=== PATIENT | male | born 1960 | race Hispanic/Latino ===

== ENCOUNTER 2019-05-11 20:35 | Inpatient (IN) | payer BC, OTHER ==
[~2019-05-11] VITALS: Ht 165.1 cm; Wt 80.7 kg
--- OUTSIDE RECORDS SUMMARY | 2019-05-11 20:41 | XMS REPORT ---
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 Allergies, Adverse Reactions, Alerts Allergy Name Allergy Type Status Severity Reaction(s) Onset Date Inactive Date Treating Clinician Comments No Known Allergies DA Active U 2019-03-13 00:00:00 No Known Allergies DA Active U 2014-10-09 00:00:00 Medications This patient has no known medications. Encounters Start Date/Time End Date/Time Encounter Type Admission Type Attending [facility] Care Facility Care Department Encounter ID 2019-05-20 00:00:00 2019-05-20 00:00:00 Outpatient [facility] [id number] 2019-04-19 10:21:16 2019-04-19 10:21:16 Outpatient [facility] [id number] 2019-04-18 00:00:00 2019-04-18 00:00:00 Outpatient [facility] [id number] 2019-04-02 00:00:00 2019-04-02 00:00:00 Outpatient [facility] [id number] 2019-03-28 00:00:00 2019-03-28 00:00:00 Outpatient [facility] [id number] 2018-11-21 00:00:00 2018-11-21 00:00:00 Outpatient [facility] [id number] 2018-11-08 00:00:00 2018-11-08 00:00:00 Outpatient [facility] [id number] 2018-10-22 00:00:00 2018-10-22 00:00:00 Outpatient [facility] [id number] 2018-10-10 10:11:42 2018-10-10 10:11:42 Outpatient [facility] [id number] 2018-10-04 14:02:06 2018-10-04 14:02:06 Outpatient [facility] [id number] 2018-04-13 00:00:00 2018-04-13 00:00:00 Outpatient [facility] [id number] 2018-03-23 00:00:00 2018-03-23 00:00:00 Outpatient [facility] [id number] 2018-03-23 00:00:00 2018-03-23 00:00:00 Outpatient [facility] [id number] 2017-12-18 00:00:00 2017-12-18 00:00:00 Outpatient [facility] [id number] 2017-12-14 00:00:00 2017-12-14 00:00:00 Outpatient [facility] [id number] 2017-11-30 15:05:47 2017-11-30 15:05:47 Outpatient [facility] [id number] 2017-11-30 13:32:46 2017-11-30 13:32:46 Outpatient [facility] [id number] 2017-11-30 00:00:00 2017-11-30 00:00:00 Outpatient [facility] [id number] 2017-03-20 00:00:00 2017-03-20 00:00:00 Outpatient [facility] [id number] 2017-03-03 00:00:00 2017-03-03 00:00:00 Outpatient [facility] [id number] 2017-01-30 00:00:00 2017-01-30 00:00:00 Outpatient [facility] [id number] 2017-01-19 00:00:00 2017-01-19 00:00:00 Outpatient [facility] [id number] 2017-01-10 11:03:29 2017-01-10 11:03:29 Outpatient [facility] [id number] 2017-01-06 15:34:13 2017-01-06 15:34:13 Outpatient [facility] [id number] 2017-01-06 13:41:52 2017-01-06 13:41:52 Outpatient [facility] [id number] Results Test Description Test Time Test Comments Text Results Atomic Results Result Comments GLUBED 2019-04-22 08:40:00 GLUBED (test code=GLUBED) 190 mg/dL 74-106 Performed by certified control center operator at [facility] [id number] 08:04:00* Test Item Value Reference Range Comments POTASSIUM (test code=K) 3.8 mmol/L 3.5-5.1 COMPREHENSIVE METABOLIC [id number] 12:37:00* Test Item Value Reference Range Comments SODIUM (test code=NA) 140 mmol/L 136-145 POTASSIUM (test code=K) 4.1 mmol/L 3.5-5.1 CHLORIDE (test code=CL) 102.0 mmol/L 98-107 CARBON DIOXIDE (test code=CO2) 30.0 mmol/L 21-32 ANION GAP (test code=GAP) 12.1 10-20 GLUCOSE (test code=GLU) 166 mg/dL 74-106 BLOOD UREA NITROGEN (test code=BUN) 22 mg/dL 7-18 GLOMERULAR FILTRATION RATE (test code=GFR) 26 mL/min >=60 Estimated GFR by using Modified MDRD formula.Chronic kidney disease is defined as either kidney damageor GFR <60 mL/min/1.73 m2 for >3 months. CREATININE (test code=CREAT) 2.50 mg/dL 0.7-1.3 BUN/CREATININE RATIO (test code=BUN/CREA) 8.9 10-20 TOTAL PROTEIN (test code=PROT) 7.9 gram/dL 6.4-8.2 ALBUMIN (test code=ALB) 3.6 g/dL 3.4-5.0 GLOBULIN (test code=GLOB) 4.3 gram/dL 2.7-4.2 ALBUMIN/GLOBULIN RATIO (test code=A/G) 0.8 0.75-1.50 CALCIUM (test code=CA) 8.9 mg/dL 8.5-10.1 BILIRUBIN TOTAL (test code=BILT) 0.60 mg/dL 0.0-1.0 SGOT/AST (test code=AST) 19 IUnit/L 15-37 SGPT/ALT (test code=ALT) 40 IUnit/L 12-78 ALKALINE PHOSPHATASE TOTAL (test code=ALKP) 81 IUnit/L 45-117 Note change in reference range due to change in reagent. PROTHROMBIN [id number] 12:24:00* Test Item Value Reference Range Comments PROTHROMBIN TIME PATIENT (test code=PTP) 11.8 seconds 9.0-14.0 INTERNATIONAL NORMAL RATIO (test code=INR) 1.0 0.8-1.2 The therapeutic range for oral anticoagulant therapy formost indications is an international normalized ratio (INR)of between 2.0 and 3.0. The recommended therapeutic INRrange for various clinical situations is listed below: Clinical Situation INR range Pulmonary e mbolism treatment (2.0-3.0)Venous thrombosis treatmentVenous thrombosis prophylaxis (high risk surgery)Prevention of systemic embolism from: Acute myocardial infarction Valvular heart disease Atrial fibrillation Mechanical prosthetic heart valves (2.5-3.5) THROMBOPLASTIN TIME [id number] 12:24:00* Test Item Value Reference Range Comments THROMBOPLASTIN TIME PARTIAL (test code=PTT) 35.6 seconds 25.0-36.5 CBC W/AUTO [id number] 12:15:00* Test Item Value Reference Range Comments WHITE BLOOD CELL (test code=WBC) 6.5 K/mm3 4.5-12.5 RED BLOOD CELL (test code=RBC) 3.66 mill/mm3 4.0-5.8 HEMOGLOBIN (test code=HGB) 11.1 gram/dL 13.0-17.5 HEMATOCRIT (test code=HCT) 33.2 % 42.0-52.0 MEAN CELL VOLUME (test code=MCV) 90.7 fL 80-98 MEAN CELL HGB (test code=MCH) 30.3 picogram 27.0-33.0 MEAN CELL HGB CONCETRATION (test code=MCHC) 33.4 gram/dL 33.0-36.0 RED CELL DISTRIBUTION WIDTH (test code=RDW) 15.2 % 11.6-16.2 RED CELL DISTRIBUTION WIDTH SD (test code=RDW-SD) 49.3 fL 37.0-51.0 PLATELET COUNT (test code=PLT) 192 K/mm3 150-450 MEAN PLATELET VOLUME (test code=MPV) 10.0 fL 6.7-11.0 NEUTROPHIL % (test code=NT%) 67.4 % 39.0-69.0 IMMATURE GRANULOCYTE % (test code=IG%) 0.6 % 0.0-5.0 LYMPHOCYTE % (test code=LY%) 22.0 % 25.0-55.0 MONOCYTE % (test code=MO%) 8.9 % 0.0-10.0 EOSINOPHIL % (test code=EO%) 0.3 % 0.0-5.0 BASOPHIL % (test code=BA%) 0.8 % 0.0-1.0 NUCLEATED RBC % (test code=NRBC%) 0.0 % 0-0 NEUTROPHIL # (test code=NT#) 4.41 K/mm3 1.8-7.7 IMMATURE GRANULOCYTE # (test code=IG#) 0.04 x10 3/uL 0-0.03 LYMPHOCYTE # (test code=LY#) 1.44 K/mm3 1.0-5.0 MONOCYTE # (test code=MO#) 0.58 K/mm3 0-0.8 EOSINOPHIL # (test code=EO#) 0.02 K/mm3 0.0-0.5 BASOPHIL # (test code=BA#) 0.05 K/mm3 0.0-0.2 NUCLEATED RBC # (test code=NRBC#) 0.00 K/mm3 0.0-0.1 MANUAL DIFF REQUIRED (test code=MDIFF) NO [id number] 11:32:00* Test Item Value Reference Range Comments GLUBED (test code=GLUBED) 243 mg/dL 74-106 Performed by certified control center operator at [facility] [id number] 07:20:00* Test Item Value Reference Range Comments GLUBED (test code=GLUBED) 156 mg/dL 74-106 Performed by certified control center operator at [facility] [id number] 20:11:00* Test Item Value Reference Range Comments GLUBED (test code=GLUBED) 277 mg/dL 74-106 Performed by certified control center operator at [facility] [id number] 16:38:00* Test Item Value Reference Range Comments GLUBED (test code=GLUBED) 200 mg/dL 74-106 Performed by certified control center operator at [facility] CBC W/AUTO [id number] 13:41:00* Test Item Value Reference Range Comments WHITE BLOOD CELL (test code=WBC) 9.0 K/mm3 4.5-12.5 RED BLOOD CELL (test code=RBC) 2.90 mill/mm3 4.0-5.8 HEMOGLOBIN (test code=HGB) 8.6 gram/dL 13.0-17.5 HEMATOCRIT (test code=HCT) 27.9 % 42.0-52.0 MEAN CELL VOLUME (test code=MCV) 96.2 fL 80-98 MEAN CELL HGB (test code=MCH) 29.7 picogram 27.0-33.0 MEAN CELL HGB CONCETRATION (test code=MCHC) 30.8 gram/dL 33.0-36.0 RED CELL DISTRIBUTION WIDTH (test code=RDW) 17.5 % 11.6-16.2 RED CELL DISTRIBUTION WIDTH SD (test code=RDW-SD) 60.9 fL 37.0-51.0 PLATELET COUNT (test code=PLT) 165 K/mm3 150-450 MEAN PLATELET VOLUME (test code=MPV) 10.9 fL 6.7-11.0 NEUTROPHIL % (test code=NT%) 65.0 % 39.0-69.0 IMMATURE GRANULOCYTE % (test code=IG%) 1.2 % 0.0-5.0 LYMPHOCYTE % (test code=LY%) 18.3 % 25.0-55.0 MONOCYTE % (test code=MO%) 6.1 % 0.0-10.0 EOSINOPHIL % (test code=EO%) 9.0 % 0.0-5.0 BASOPHIL % (test code=BA%) 0.4 % 0.0-1.0 NUCLEATED RBC % (test code=NRBC%) 0.0 % 0-0 NEUTROPHIL # (test code=NT#) 5.87 K/mm3 1.8-7.7 IMMATURE GRANULOCYTE # (test code=IG#) 0.11 x10 3/uL 0-0.03 LYMPHOCYTE # (test code=LY#) 1.65 K/mm3 1.0-5.0 MONOCYTE # (test code=MO#) 0.55 K/mm3 0-0.8 EOSINOPHIL # (test code=EO#) 0.81 K/mm3 0.0-0.5 BASOPHIL # (test code=BA#) 0.04 K/mm3 0.0-0.2 NUCLEATED RBC # (test code=NRBC#) 0.00 K/mm3 0.0-0.1 MANUAL DIFF REQUIRED (test code=MDIFF) NO BASIC METABOLIC [id number] 13:23:00* Test Item Value Reference Range Comments SODIUM (test code=NA) 142 mmol/L 136-145 POTASSIUM (test code=K) 4.1 mmol/L 3.5-5.1 CHLORIDE (test code=CL) 102.0 mmol/L 98-107 CARBON DIOXIDE (test code=CO2) 27.0 mmol/L 21-32 ANION GAP (test code=GAP) 17.1 10-20 GLUCOSE (test code=GLU) 294 mg/dL 74-106 BLOOD UREA NITROGEN (test code=BUN) 39 mg/dL 7-18 GLOMERULAR FILTRATION RATE (test code=GFR) 15 mL/min >=60 Estimated GFR by using Modified MDRD formula.Chronic kidney disease is defined as either kidney damageor GFR <60 mL/min/1.73 m2 for >3 months. CREATININE (test code=CREAT) 4.20 mg/dL 0.7-1.3 BUN/CREATININE RATIO (test code=BUN/CREA) 9.3 10-20 CALCIUM (test code=CA) 7.9 mg/dL 8.5-10.1 - XR SWLW [facility] W/C [id number] 11:32:00 FAX: Rojelio Padron [place]: B St: ADM Name: TORRES CAN [facility] : [birth year] 57 Age/S: 58/M [address] [facility] Unit #: [id number] Loc: V.[address] [place] [id number] Phys: Rojelio Saldana [facility] DO Acct: [id number] Dis Date: Status: ADM IN PHONE #: [phone] Exam Date: 03/29/2019 1009 FAX #: [phone] Reason: ASSES SWALLOW EXAMS: CPT CODE: [id number] XR SWLW FUNC W/C V 55114 HISTORY: Aspiration. COMPARISON: March 21, 2019. This study was performed in concert with the speech pathologist. Varying grades of barium were admini stered. No aspiration or laryngeal penetration. IM PRESSION: No aspiration or laryngeal penetration. For detailed evaluation please see the accompanying sheet provided by the speech therapist. Fluoroscopy time utilized was 75.7 seconds and 8 images were obtained. at 1132 Reported and signed by: Tima Rios M.D. CC: Rojelio Saldana Contreras DO Technologist: RT BRIA(Vick) Trnscrd Date/Time/By: 03/29/2019 (1132) : By: [email or web address] Orig Print D/T : S: 03/29/2019 (1130) PAGE 1 Sig moy Report [id number] 11:15:00* Test Item Value Reference Range Comments GLUBED (test code=GLUBED) 295 mg/dL 74-106 Performed by certified control center operator at [facility] [id number] 07:08:00* Test Item Value Reference Range Comments GLUBED (test code=GLUBED) 155 mg/dL 74-106 Performed by certified control center operator at [facility] [id number] 20:19:00* Test Item Value Reference Range Comments GLUBED (test code=GLUBED) 276 mg/dL 74-106 Performed by certified control center operator at [facility] [id number] 16:06:00* Test Item Value Reference Range Comments GLUBED (test code=GLUBED) 186 mg/dL 74-106 Performed by certified control center operator at [facility] [id number] 11:27:00* Test Item Value Reference Range Comments GLUBED (test code=GLUBED) 206 mg/dL 74-106 Performed by certified control center operator at [facility] [id number] 08:26:00* Test Item Value Reference Range Comments GLUBED (test code=GLUBED) 138 mg/dL 74-106 Performed by certified control center operator at [facility] [id number] 07:19:00* Test Item Value Reference Range Comments GLUBED (test code=GLUBED) 71 mg/dL 74-106 Performed by certified control center operator at [facility] [id number] 20:27:00* Test Item Value Reference Range Comments GLUBED (test code=GLUBED) 170 mg/dL 74-106 Performed by certified control center operator at [facility] [id number] 16:41:00* Test Item Value Reference Range Comments GLUBED (test code=GLUBED) 230 mg/dL 74-106 Performed by certified control center operator at [facility] BASIC METABOLIC [id number] 13:13:00* Test Item Value Reference Range Comments SODIUM (test code=NA) 141 mmol/L 136-145 POTASSIUM (test code=K) 4.5 mmol/L 3.5-5.1 CHLORIDE (test code=CL) 104.0 mmol/L 98-107 CARBON DIOXIDE (test code=CO2) 27.0 mmol/L 21-32 ANION GAP (test code=GAP) 14.5 10-20 GLUCOSE (test code=GLU) 301 mg/dL 74-106 BLOOD UREA NITROGEN (test code=BUN) 44 mg/dL 7-18 GLOMERULAR FILTRATION RATE (test code=GFR) 15 mL/min >=60 Estimated GFR by using Modified MDRD formula.Chronic kidney disease is defined as either kidney damageor GFR <60 mL/min/1.73 m2 for >3 months. CREATININE (test code=CREAT) 4.00 mg/dL 0.7-1.3 BUN/CREATININE RATIO (test code=BUN/CREA) 11.0 10-20 CALCIUM (test code=CA) 8.5 mg/dL 8.5-10.1 PATIENT NOT IN ROOMBASIC METABOLIC [id number] 13:05:00* Test Item Value Reference Range Comments SODIUM (test code=NA) 141 mmol/L 136-145 POTASSIUM (test code=K) 4.5 mmol/L 3.5-5.1 CHLORIDE (test code=CL) 104.0 mmol/L 98-107 CARBON DIOXIDE (test code=CO2) mmol/L 21-32 ANION GAP (test code=GAP) 10-20 GLUCOSE (test code=GLU) mg/dL 74-106 BLOOD UREA NITROGEN (test code=BUN) mg/dL 7-18 GLOMERULAR FILTRATION RATE (test code=GFR) mL/min >=60 CREATININE (test code=CREAT) mg/dL 0.7-1.3 BUN/CREATININE RATIO (test code=BUN/CREA) 10-20 CALCIUM (test code=CA) mg/dL 8.5-10.1 [facility] [id number] 12:44:00* Test Item Value Reference Range Comments WHITE BLOOD CELL (test code=WBC) 8.1 K/mm3 4.5-12.5 RED BLOOD CELL (test code=RBC) 2.98 mill/mm3 4.0-5.8 HEMOGLOBIN (test code=HGB) 8.9 gram/dL 13.0-17.5 HEMATOCRIT (test code=HCT) 28.5 % 42.0-52.0 MEAN CELL VOLUME (test code=MCV) 95.6 fL 80-98 MEAN CELL HGB (test code=MCH) 29.9 picogram 27.0-33.0 MEAN CELL HGB CONCETRATION (test code=MCHC) 31.2 gram/dL 33.0-36.0 RED CELL DISTRIBUTION WIDTH (test code=RDW) 17.2 % 11.6-16.2 RED CELL DISTRIBUTION WIDTH SD (test code=RDW-SD) 58.8 fL 37.0-51.0 PLATELET COUNT (test code=PLT) 186 K/mm3 150-450 MEAN PLATELET VOLUME (test code=MPV) 10.1 fL 6.7-11.0 NEUTROPHIL % (test code=NT%) 63.4 % 39.0-69.0 IMMATURE GRANULOCYTE % (test code=IG%) 1.6 % 0.0-5.0 LYMPHOCYTE % (test code=LY%) 18.9 % 25.0-55.0 MONOCYTE % (test code=MO%) 5.5 % 0.0-10.0 EOSINOPHIL % (test code=EO%) 10.1 % 0.0-5.0 BASOPHIL % (test code=BA%) 0.5 % 0.0-1.0 NUCLEATED RBC % (test code=NRBC%) 0.0 % 0-0 NEUTROPHIL # (test code=NT#) 5.15 K/mm3 1.8-7.7 IMMATURE GRANULOCYTE # (test code=IG#) 0.13 x10 3/uL 0-0.03 LYMPHOCYTE # (test code=LY#) 1.54 K/mm3 1.0-5.0 MONOCYTE # (test code=MO#) 0.45 K/mm3 0-0.8 EOSINOPHIL # (test code=EO#) 0.82 K/mm3 0.0-0.5 BASOPHIL # (test code=BA#) 0.04 K/mm3 0.0-0.2 NUCLEATED RBC # (test code=NRBC#) 0.00 K/mm3 0.0-0.1 PATIENT NOT IN [id number] 11:15:00* Test Item Value Reference Range Comments GLUBED (test code=GLUBED) 266 mg/dL 74-106 Performed by certified control center operator at [facility]2019-10-23 06:59:00* Test Item Value Reference Range Comments GLUBED (test code=GLUBED) 149 mg/dL 74-106 Performed by certified control center operator at [facility] [id number] 20:03:00* Test Item Value Reference Range Comments GLUBED (test code=GLUBED) 116 mg/dL 74-106 Performed by certified control center operator at [facility] [id number] 16:40:00* Test Item Value Reference Range Comments GLUBED (test code=GLUBED) 120 mg/dL 74-106 Performed by certified control center operator at [facility] [id number] 16:10:00* Test Item Value Reference Range Comments GLUBED (test code=GLUBED) 59 mg/dL 74-106 Performed by certified control center operator at [facility] [id number] 11:16:00* Test Item Value Reference Range Comments GLUBED (test code=GLUBED) 208 mg/dL 74-106 Performed by certified control center operator at [facility] [id number] 07:48:00* Test Item Value Reference Range Comments GLUBED (test code=GLUBED) 208 mg/dL 74-106 Performed by certified control center operator at [facility] [id number] 11:12:00* Test Item Value Reference Range Comments GLUBED (test code=GLUBED) 287 mg/dL 74-106 Performed by certified control center operator at [facility] BASIC METABOLIC [id number] 07:47:00* Test Item Value Reference Range Comments SODIUM (test code=NA) 143 mmol/L 136-145 POTASSIUM (test code=K) 4.1 mmol/L 3.5-5.1 CHLORIDE (test code=CL) 105.0 mmol/L 98-107 CARBON DIOXIDE (test code=CO2) 25.0 mmol/L 21-32 ANION GAP (test code=GAP) 17.1 10-20 GLUCOSE (test code=GLU) 76 mg/dL 74-106 BLOOD UREA NITROGEN (test code=BUN) 53 mg/dL 7-18 GLOMERULAR FILTRATION RATE (test code=GFR) 15 mL/min >=60 Estimated GFR by using Modified MDRD formula.Chronic kidney disease is defined as either kidney damageor GFR <60 mL/min/1.73 m2 for >3 months. CREATININE (test code=CREAT) 4.10 mg/dL 0.7-1.3 BUN/CREATININE RATIO (test code=BUN/CREA) 12.8 10-20 CALCIUM (test code=CA) 9.1 mg/dL 8.5-10.1 [id number] METABOLIC [id number] 07:35:00* Test Item Value Reference Range Comments SODIUM (test code=NA) 143 mmol/L 136-145 POTASSIUM (test code=K) 4.1 mmol/L 3.5-5.1 CHLORIDE (test code=CL) 105.0 mmol/L 98-107 CARBON DIOXIDE (test code=CO2) mmol/L 21-32 ANION GAP (test code=GAP) 10-20 GLUCOSE (test code=GLU) mg/dL 74-106 BLOOD UREA NITROGEN (test code=BUN) mg/dL 7-18 GLOMERULAR FILTRATION RATE (test code=GFR) mL/min >=60 CREATININE (test code=CREAT) mg/dL 0.7-1.3 BUN/CREATININE RATIO (test code=BUN/CREA) 10-20 CALCIUM (test code=CA) mg/dL 8.5-10.1 [id number] W/AUTO [id number] 07:24:00* Test Item Value Reference Range Comments WHITE BLOOD CELL (test code=WBC) 10.0 K/mm3 4.5-12.5 RED BLOOD CELL (test code=RBC) 3.20 mill/mm3 4.0-5.8 HEMOGLOBIN (test code=HGB) 9.4 gram/dL 13.0-17.5 HEMATOCRIT (test code=HCT) 30.4 % 42.0-52.0 MEAN CELL VOLUME (test code=MCV) 95.0 fL 80-98 MEAN CELL HGB (test code=MCH) 29.4 picogram 27.0-33.0 MEAN CELL HGB CONCETRATION (test code=MCHC) 30.9 gram/dL 33.0-36.0 RED CELL DISTRIBUTION WIDTH (test code=RDW) 17.0 % 11.6-16.2 RED CELL DISTRIBUTION WIDTH SD (test code=RDW-SD) 57.8 fL 37.0-51.0 PLATELET COUNT (test code=PLT) 247 K/mm3 150-450 MEAN PLATELET VOLUME (test code=MPV) 10.0 fL 6.7-11.0 NEUTROPHIL % (test code=NT%) 76.6 % 39.0-69.0 IMMATURE GRANULOCYTE % (test code=IG%) 1.5 % 0.0-5.0 LYMPHOCYTE % (test code=LY%) 15.6 % 25.0-55.0 MONOCYTE % (test code=MO%) 5.9 % 0.0-10.0 EOSINOPHIL % (test code=EO%) 0.0 % 0.0-5.0 BASOPHIL % (test code=BA%) 0.4 % 0.0-1.0 NUCLEATED RBC % (test code=NRBC%) 0.0 % 0-0 NEUTROPHIL # (test code=NT#) 7.65 K/mm3 1.8-7.7 IMMATURE GRANULOCYTE # (test code=IG#) 0.15 x10 3/uL 0-0.03 LYMPHOCYTE # (test code=LY#) 1.56 K/mm3 1.0-5.0 MONOCYTE # (test code=MO#) 0.59 K/mm3 0-0.8 EOSINOPHIL # (test code=EO#) 0.00 K/mm3 0.0-0.5 BASOPHIL # (test code=BA#) 0.04 K/mm3 0.0-0.2 NUCLEATED RBC # (test code=NRBC#) 0.00 K/mm3 0.0-0.1 MANUAL DIFF REQUIRED (test code=MDIFF) NO [id number] 07:03:00* Test Item Value Reference Range Comments GLUBED (test code=GLUBED) 86 mg/dL 74-106 Performed by certified control center operator at [facility] [id number] 20:25:00* Test Item Value Reference Range Comments GLUBED (test code=GLUBED) 207 mg/dL 74-106 Performed by certified control center operator at [facility] [id number] 18:54:00* Test Item Value Reference Range Comments GLUBED (test code=GLUBED) 191 mg/dL 74-106 Performed by certified control center operator at [facility] [id number] 11:45:00* Test Item Value Reference Range Comments GLUBED (test code=GLUBED) 218 mg/dL 74-106 Performed by certified control center operator at [facility] [id number] 11:45:00* Test Item Value Reference Range Comments GLUBED (test code=GLUBED) 152 mg/dL 74-106 Performed by certified control center operator at [facility] [id number] 20:09:00* Test Item Value Reference Range Comments GLUBED (test code=GLUBED) 191 mg/dL 74-106 Performed by certified control center operator at [facility] [id number] 16:13:00* Test Item Value Reference Range Comments GLUBED (test code=GLUBED) 138 mg/dL 74-106 Performed by certified control center operator at [facility] [id number] 11:09:00* Test Item Value Reference Range Comments GLUBED (test code=GLUBED) 230 mg/dL 74-106 Performed by certified control center operator at [facility] [id number] 06:57:00* Test Item Value Reference Range Comments GLUBED (test code=GLUBED) 187 mg/dL 74-106 Performed by certified control center operator at [facility] BASIC METABOLIC [id number] 03:42:00* Test Item Value Reference Range Comments SODIUM (test code=NA) 138 mmol/L 136-145 POTASSIUM (test code=K) 4.4 mmol/L 3.5-5.1 CHLORIDE (test code=CL) 103.0 mmol/L 98-107 CARBON DIOXIDE (test code=CO2) 28.0 mmol/L 21-32 ANION GAP (test code=GAP) 11.4 10-20 GLUCOSE (test code=GLU) 229 mg/dL 74-106 BLOOD UREA NITROGEN (test code=BUN) 22 mg/dL 7-18 RESULT VERIFIED BY REPEAT ANALYSIS GLOMERULAR FILTRATION RATE (test code=GFR) 22 mL/min >=60 Estimated GFR by using Modified MDRD formula.Chronic kidney disease is defined as either kidney damageor GFR <60 mL/min/1.73 m2 for >3 months. CREATININE (test code=CREAT) 2.90 mg/dL 0.7-1.3 BUN/CREATININE RATIO (test code=BUN/CREA) 7.6 10-20 CALCIUM (test code=CA) 8.9 mg/dL 8.5-10.1 CBC W/AUTO [id number] 03:08:00* Test Item Value Reference Range Comments WHITE BLOOD CELL (test code=WBC) 10.0 K/mm3 4.5-12.5 RED BLOOD CELL (test code=RBC) 3.33 mill/mm3 4.0-5.8 HEMOGLOBIN (test code=HGB) 9.6 gram/dL 13.0-17.5 HEMATOCRIT (test code=HCT) 30.8 % 42.0-52.0 MEAN CELL VOLUME (test code=MCV) 92.5 fL 80-98 MEAN CELL HGB (test code=MCH) 28.8 picogram 27.0-33.0 MEAN CELL HGB CONCETRATION (test code=MCHC) 31.2 gram/dL 33.0-36.0 RED CELL DISTRIBUTION WIDTH (test code=RDW) 16.5 % 11.6-16.2 RED CELL DISTRIBUTION WIDTH SD (test code=RDW-SD) 54.6 fL 37.0-51.0 PLATELET COUNT (test code=PLT) 291 K/mm3 150-450 MEAN PLATELET VOLUME (test code=MPV) 10.2 fL 6.7-11.0 NEUTROPHIL % (test code=NT%) 79.0 % 39.0-69.0 IMMATURE GRANULOCYTE % (test code=IG%) 1.4 % 0.0-5.0 LYMPHOCYTE % (test code=LY%) 12.6 % 25.0-55.0 MONOCYTE % (test code=MO%) 6.6 % 0.0-10.0 EOSINOPHIL % (test code=EO%) 0.0 % 0.0-5.0 BASOPHIL % (test code=BA%) 0.4 % 0.0-1.0 NUCLEATED RBC % (test code=NRBC%) 0.0 % 0-0 NEUTROPHIL # (test code=NT#) 7.91 K/mm3 1.8-7.7 IMMATURE GRANULOCYTE # (test code=IG#) 0.14 x10 3/uL 0-0.03 LYMPHOCYTE # (test code=LY#) 1.26 K/mm3 1.0-5.0 MONOCYTE # (test code=MO#) 0.66 K/mm3 0-0.8 EOSINOPHIL # (test code=EO#) 0.00 K/mm3 0.0-0.5 BASOPHIL # (test code=BA#) 0.04 K/mm3 0.0-0.2 NUCLEATED RBC # (test code=NRBC#) 0.00 K/mm3 0.0-0.1 [id number] 20:47:00* Test Item Value Reference Range Comments GLUBED (test code=GLUBED) 268 mg/dL 74-106 Performed by certified control center operator at [facility] BASIC METABOLIC [id number] 16:07:00* Test Item Value Reference Range Comments SODIUM (test code=NA) 140 mmol/L 136-145 POTASSIUM (test code=K) 4.5 mmol/L 3.5-5.1 CHLORIDE (test code=CL) 100.0 mmol/L 98-107 CARBON DIOXIDE (test code=CO2) 30.0 mmol/L 21-32 ANION GAP (test code=GAP) 14.5 10-20 GLUCOSE (test code=GLU) 148 mg/dL 74-106 BLOOD UREA NITROGEN (test code=BUN) 41 mg/dL 7-18 GLOMERULAR FILTRATION RATE (test code=GFR) 14 mL/min >=60 Estimated GFR by using Modified MDRD formula.Chronic kidney disease is defined as either kidney damageor GFR <60 mL/min/1.73 m2 for >3 months. CREATININE (test code=CREAT) 4.30 mg/dL 0.7-1.3 BUN/CREATININE RATIO (test code=BUN/CREA) 9.6 10-20 CALCIUM (test code=CA) 9.3 mg/dL 8.5-10.1 BASIC METABOLIC [id number] 15:59:00* Test Item Value Reference Range Comments SODIUM (test code=NA) 140 mmol/L 136-145 POTASSIUM (test code=K) 4.5 mmol/L 3.5-5.1 CHLORIDE (test code=CL) 100.0 mmol/L 98-107 CARBON DIOXIDE (test code=CO2) mmol/L 21-32 ANION GAP (test code=GAP) 10-20 GLUCOSE (test code=GLU) mg/dL 74-106 BLOOD UREA NITROGEN (test code=BUN) mg/dL 7-18 GLOMERULAR FILTRATION RATE (test code=GFR) mL/min >=60 CREATININE (test code=CREAT) mg/dL 0.7-1.3 BUN/CREATININE RATIO (test code=BUN/CREA) 10-20 CALCIUM (test code=CA) mg/dL 8.5-10.1 CBC W/AUTO [id number] 15:47:00* Test Item Value Reference Range Comments WHITE BLOOD CELL (test code=WBC) 7.8 K/mm3 4.5-12.5 RED BLOOD CELL (test code=RBC) 3.00 mill/mm3 4.0-5.8 HEMOGLOBIN (test code=HGB) 8.8 gram/dL 13.0-17.5 HEMATOCRIT (test code=HCT) 28.0 % 42.0-52.0 MEAN CELL VOLUME (test code=MCV) 93.3 fL 80-98 MEAN CELL HGB (test code=MCH) 29.3 picogram 27.0-33.0 MEAN CELL HGB CONCETRATION (test code=MCHC) 31.4 gram/dL 33.0-36.0 RED CELL DISTRIBUTION WIDTH (test code=RDW) 16.6 % 11.6-16.2 RED CELL DISTRIBUTION WIDTH SD (test code=RDW-SD) 55.8 fL 37.0-51.0 PLATELET COUNT (test code=PLT) 260 K/mm3 150-450 RESULT VERIFIED BY REPEAT ANALYSIS MEAN PLATELET VOLUME (test code=MPV) 9.7 fL 6.7-11.0 NEUTROPHIL % (test code=NT%) 73.2 % 39.0-69.0 IMMATURE GRANULOCYTE % (test code=IG%) 1.8 % 0.0-5.0 LYMPHOCYTE % (test code=LY%) 17.6 % 25.0-55.0 MONOCYTE % (test code=MO%) 6.3 % 0.0-10.0 EOSINOPHIL % (test code=EO%) 0.3 % 0.0-5.0 BASOPHIL % (test code=BA%) 0.8 % 0.0-1.0 NUCLEATED RBC % (test code=NRBC%) 0.0 % 0-0 NEUTROPHIL # (test code=NT#) 5.69 K/mm3 1.8-7.7 IMMATURE GRANULOCYTE # (test code=IG#) 0.14 x10 3/uL 0-0.03 LYMPHOCYTE # (test code=LY#) 1.37 K/mm3 1.0-5.0 MONOCYTE # (test code=MO#) 0.49 K/mm3 0-0.8 EOSINOPHIL # (test code=EO#) 0.02 K/mm3 0.0-0.5 BASOPHIL # (test code=BA#) 0.06 K/mm3 0.0-0.2 NUCLEATED RBC # (test code=NRBC#) 0.00 K/mm3 0.0-0.1 MANUAL DIFF REQUIRED (test code=MDIFF) NO [id number] 11:40:00* Test Item Value Reference Range Comments GLUBED (test code=GLUBED) 165 mg/dL 74-106 Performed by certified control center operator at [facility] [id number] 07:24:00* Test Item Value Reference Range Comments GLUBED (test code=GLUBED) 105 mg/dL 74-106 Performed by certified control center operator at [facility] [id number] 20:11:00* Test Item Value Reference Range Comments GLUBED (test code=GLUBED) 200 mg/dL 74-106 Performed by certified control center operator at [facility] [id number] 16:15:00* Test Item Value Reference Range Comments GLUBED (test code=GLUBED) 136 mg/dL 74-106 Performed by certified control center operator at [facility] - XR SWLW FUNC W/C [id number] 14:56:00 FAX: Rojelio Padron [place]: B St: ADM Name: TORRES CAN [facility] : [birth year] Age/S: 58/M [address] Unit #: [id number] Loc: V.3100 [place] [address] Phys: Rojelio Saldana [facility] Acct: [id number] Dis Date: Status: ADM IN PHONE #: [phone] Exam Date: 03/21/2019 1145 FAX #: [phone] Reason: DYSPHAGIA EXAMS: CPT CODE: [id number] [facility] W/C V 15558 CLINICAL HISTORY: DYSPHAGIA TECHNIQUE: Fluoroscopic swallow function evaluation in conjunction with speech therapy. Fluoroscopy time 132 seconds;Dose: 10.5 mGy. IMPRESSION: Handling of varying consistencies of barium were evaluated. The patient demonstrated silent aspiration when consuming t hin and nectar consistency barium. There is also penetration but no aspi ration when the patient attempted to consume honey consistency barium. P arlene see separate speech pathology report for complete discussion. at 0885 Reported and signed by: Ken Marie MD CC: Rojelio Saldanag Technologist: RT BRIA(Vick) Trnscrd Date/Time/By: 03/21/20 19 (4088) : By: [email or web address] Orig Print D/T: S: 03/21/2019 (1687) PAGE 1 Signed Report [id number] 11:15:00* Test Item Value Reference Range Comments GLUBED (test code=GLUBED) 241 mg/dL 74-106 Performed by certified control center operator at [facility] [id number] 07:35:00* Test Item Value Reference Range Comments GLUBED (test code=GLUBED) 187 mg/dL 74-106 Performed by certified control center operator at [facility] BASIC METABOLIC [id number] 07:18:00* Test Item Value Reference Range Comments SODIUM (test code=NA) 138 mmol/L 136-145 POTASSIUM (test code=K) 4.1 mmol/L 3.5-5.1 CHLORIDE (test code=CL) 101.0 mmol/L 98-107 CARBON DIOXIDE (test code=CO2) 30.0 mmol/L 21-32 ANION GAP (test code=GAP) 11.1 10-20 GLUCOSE (test code=GLU) 226 mg/dL 74-106 BLOOD UREA NITROGEN (test code=BUN) 21 mg/dL 7-18 RESULT VERIFIED BY REPEAT ANALYSIS GLOMERULAR FILTRATION RATE (test code=GFR) 22 mL/min >=60 Estimated GFR by using Modified MDRD formula.Chronic kidney disease is defined as either kidney damageor GFR <60 mL/min/1.73 m2 for >3 months. CREATININE (test code=CREAT) 2.90 mg/dL 0.7-1.3 BUN/CREATININE RATIO (test code=BUN/CREA) 7.2 10-20 CALCIUM (test code=CA) 8.8 mg/dL 8.5-10.1 BASIC METABOLIC [id number] 07:08:00* Test Item Value Reference Range Comments SODIUM (test code=NA) 138 mmol/L 136-145 POTASSIUM (test code=K) 4.1 mmol/L 3.5-5.1 CHLORIDE (test code=CL) 101.0 mmol/L 98-107 CARBON DIOXIDE (test code=CO2) mmol/L 21-32 ANION GAP (test code=GAP) 10-20 GLUCOSE (test code=GLU) mg/dL 74-106 BLOOD UREA NITROGEN (test code=BUN) mg/dL 7-18 GLOMERULAR FILTRATION RATE (test code=GFR) mL/min >=60 CREATININE (test code=CREAT) mg/dL 0.7-1.3 BUN/CREATININE RATIO (test code=BUN/CREA) 10-20 CALCIUM (test code=CA) mg/dL 8.5-10.1 CBC W/AUTO [id number] 06:41:00* Test Item Value Reference Range Comments WHITE BLOOD CELL (test code=WBC) 8.9 K/mm3 4.5-12.5 RED BLOOD CELL (test code=RBC) 3.24 mill/mm3 4.0-5.8 HEMOGLOBIN (test code=HGB) 9.1 gram/dL 13.0-17.5 HEMATOCRIT (test code=HCT) 30.1 % 42.0-52.0 MEAN CELL VOLUME (test code=MCV) 92.9 fL 80-98 MEAN CELL HGB (test code=MCH) 28.1 picogram 27.0-33.0 MEAN CELL HGB CONCETRATION (test code=MCHC) 30.2 gram/dL 33.0-36.0 RED CELL DISTRIBUTION WIDTH (test code=RDW) 16.1 % 11.6-16.2 RED CELL DISTRIBUTION WIDTH SD (test code=RDW-SD) 54.4 fL 37.0-51.0 PLATELET COUNT (test code=PLT) 311 K/mm3 150-450 MEAN PLATELET VOLUME (test code=MPV) 9.8 fL 6.7-11.0 NEUTROPHIL % (test code=NT%) 64.8 % 39.0-69.0 IMMATURE GRANULOCYTE % (test code=IG%) 1.9 % 0.0-5.0 LYMPHOCYTE % (test code=LY%) 20.9 % 25.0-55.0 MONOCYTE % (test code=MO%) 8.1 % 0.0-10.0 EOSINOPHIL % (test code=EO%) 3.6 % 0.0-5.0 BASOPHIL % (test code=BA%) 0.7 % 0.0-1.0 NUCLEATED RBC % (test code=NRBC%) 0.0 % 0-0 NEUTROPHIL # (test code=NT#) 5.74 K/mm3 1.8-7.7 IMMATURE GRANULOCYTE # (test code=IG#) 0.17 x10 3/uL 0-0.03 LYMPHOCYTE # (test code=LY#) 1.85 K/mm3 1.0-5.0 MONOCYTE # (test code=MO#) 0.72 K/mm3 0-0.8 EOSINOPHIL # (test code=EO#) 0.32 K/mm3 0.0-0.5 BASOPHIL # (test code=BA#) 0.06 K/mm3 0.0-0.2 NUCLEATED RBC # (test code=NRBC#) 0.00 K/mm3 0.0-0.1 [id number] 20:54:00* Test Item Value Reference Range Comments GLUBED (test code=GLUBED) 166 mg/dL 74-106 Performed by certified control center operator at [facility] BASIC METABOLIC [id number] 12:57:00* Test Item Value Reference Range Comments SODIUM (test code=NA) 137 mmol/L 136-145 POTASSIUM (test code=K) 4.1 mmol/L 3.5-5.1 CHLORIDE (test code=CL) 102.0 mmol/L 98-107 CARBON DIOXIDE (test code=CO2) 24.0 mmol/L 21-32 ANION GAP (test code=GAP) 15.1 10-20 GLUCOSE (test code=GLU) 197 mg/dL 74-106 BLOOD UREA NITROGEN (test code=BUN) 36 mg/dL 7-18 GLOMERULAR FILTRATION RATE (test code=GFR) 13 mL/min >=60 Estimated GFR by using Modified MDRD formula.Chronic kidney disease is defined as either kidney damageor GFR <60 mL/min/1.73 m2 for >3 months. CREATININE (test code=CREAT) 4.50 mg/dL 0.7-1.3 BUN/CREATININE RATIO (test code=BUN/CREA) 8.0 10-20 CALCIUM (test code=CA) 8.8 mg/dL 8.5-10.1 BASIC METABOLIC [id number] 12:51:00* Test Item Value Reference Range Comments SODIUM (test code=NA) 137 mmol/L 136-145 POTASSIUM (test code=K) 4.1 mmol/L 3.5-5.1 CHLORIDE (test code=CL) 102.0 mmol/L 98-107 CARBON DIOXIDE (test code=CO2) mmol/L 21-32 ANION GAP (test code=GAP) 10-20 GLUCOSE (test code=GLU) mg/dL 74-106 BLOOD UREA NITROGEN (test code=BUN) mg/dL 7-18 GLOMERULAR FILTRATION RATE (test code=GFR) mL/min >=60 CREATININE (test code=CREAT) mg/dL 0.7-1.3 BUN/CREATININE RATIO (test code=BUN/CREA) 10-20 CALCIUM (test code=CA) mg/dL 8.5-10.1 CBC W/AUTO [id number] 12:34:00* Test Item Value Reference Range Comments WHITE BLOOD CELL (test code=WBC) 8.7 K/mm3 4.5-12.5 RED BLOOD CELL (test code=RBC) 3.17 mill/mm3 4.0-5.8 HEMOGLOBIN (test code=HGB) 9.1 gram/dL 13.0-17.5 HEMATOCRIT (test code=HCT) 29.4 % 42.0-52.0 MEAN CELL VOLUME (test code=MCV) 92.7 fL 80-98 MEAN CELL HGB (test code=MCH) 28.7 picogram 27.0-33.0 MEAN CELL HGB CONCETRATION (test code=MCHC) 31.0 gram/dL 33.0-36.0 RED CELL DISTRIBUTION WIDTH (test code=RDW) 16.1 % 11.6-16.2 RED CELL DISTRIBUTION WIDTH SD (test code=RDW-SD) 54.4 fL 37.0-51.0 PLATELET COUNT (test code=PLT) 299 K/mm3 150-450 MEAN PLATELET VOLUME (test code=MPV) 9.7 fL 6.7-11.0 NEUTROPHIL % (test code=NT%) 70.7 % 39.0-69.0 IMMATURE GRANULOCYTE % (test code=IG%) 2.1 % 0.0-5.0 LYMPHOCYTE % (test code=LY%) 18.4 % 25.0-55.0 MONOCYTE % (test code=MO%) 7.8 % 0.0-10.0 EOSINOPHIL % (test code=EO%) 0.2 % 0.0-5.0 BASOPHIL % (test code=BA%) 0.8 % 0.0-1.0 NUCLEATED RBC % (test code=NRBC%) 0.0 % 0-0 NEUTROPHIL # (test code=NT#) 6.16 K/mm3 1.8-7.7 IMMATURE GRANULOCYTE # (test code=IG#) 0.18 x10 3/uL 0-0.03 LYMPHOCYTE # (test code=LY#) 1.60 K/mm3 1.0-5.0 MONOCYTE # (test code=MO#) 0.68 K/mm3 0-0.8 EOSINOPHIL # (test code=EO#) 0.02 K/mm3 0.0-0.5 BASOPHIL # (test code=BA#) 0.07 K/mm3 0.0-0.2 NUCLEATED RBC # (test code=NRBC#) 0.00 K/mm3 0.0-0.1 [id number] 11:18:00* Test Item Value Reference Range Comments GLUBED (test code=GLUBED) 198 mg/dL 74-106 Performed by certified control center operator at [facility] - XR HAND 2 V [id number] 09:17:00 FAX: Rojelio Padron [place]: St: ADM Name: Italo TORRES MCKEON [facility] : [birth year] 57 Age/S: 58/M [address] [facility] Unit #: [id number] Loc: V.3100 [place] [address] Phys: Rojelio Saldana [facility] Acct: [id number] Dis Date: Status: ADM IN PHONE #: [phone] Exam Date: 03/20/2019 0907 FAX #: [phone] Reason: soreness EXAMS: CPT CODE: [id number] XR HAND 2 [place] [id number] REASON FOR EXAM: soreness EXAM ORDER DATE: 03/20/2019 12:00 AM Ordering M.DCarmita: Rojelio Saldana DO PROCEDURE: - XR HAND 2 V RT Com parison:None FINDINGS: No evidence of fracture. The bones are appropriately aligned and the joint spaces are maintained. Incidental note is made of shortening of the fourth metacarpa l. Vascular calcifications are seen throughout the right upper ext remity. IMPRESSION: No acute bony abnormality in the ri ght hand. 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 Severe peripheral vascular diseas e. at 0917 Reported and signed by: Ken Marie MD CC: Rojelio Saldana DO Technologist: Danielle LEMUS) Trnscrd Date/Time/By: 03/20/2019 (916) : By: [email or web address] Orig Print D/T: S: 03/20/2019 (8886) PAGE 1 Signed Report [id number] 07:36:00* Test Item Value Reference Range Comments GLUBED (test code=GLUBED) 141 mg/dL 74-106 Performed by certified control center operator at [facility] [id number] 20:01:00* Test Item Value Reference Range Comments GLUBED (test code=GLUBED) 213 mg/dL 74-106 Performed by certified control center operator at [facility] [id number] 15:59:00* Test Item Value Reference Range Comments GLUBED (test code=GLUBED) 125 mg/dL 74-106 Performed by certified control center operator at [facility] [id number] 11:08:00* Test Item Value Reference Range Comments GLUBED (test code=GLUBED) 201 mg/dL 74-106 Performed by certified control center operator at [facility] [id number] 07:32:00* Test Item Value Reference Range Comments GLUBED (test code=GLUBED) 165 mg/dL 74-106 Performed by certified control center operator at [facility] [id number] 21:11:00* Test Item Value Reference Range Comments GLUBED (test code=GLUBED) 161 mg/dL 74-106 Performed by certified control center operator at [facility] RENAL FUNCTION [id number] 18:01:00* Test Item Value Reference Range Comments SODIUM (test code=NA) 138 mmol/L 136-145 POTASSIUM (test code=K) 3.9 mmol/L 3.5-5.1 CHLORIDE (test code=CL) 100.0 mmol/L 98-107 CARBON DIOXIDE (test code=CO2) 30.0 mmol/L 21-32 ANION GAP (test code=GAP) 11.9 10-20 GLUCOSE (test code=GLU) 211 mg/dL 74-106 BLOOD UREA NITROGEN (test code=BUN) 40 mg/dL 7-18 CREATININE (test code=CREAT) 4.70 mg/dL 0.7-1.3 ALBUMIN (test code=ALB) 2.2 g/dL 3.4-5.0 CALCIUM (test code=CA) 9.0 mg/dL 8.5-10.1 PHOSPHORUS (test code=PHOS) 4.1 mg/dL 2.5-4.9 RENAL FUNCTION [id number] 17:57:00* Test Item Value Reference Range Comments SODIUM (test code=NA) 138 mmol/L 136-145 POTASSIUM (test code=K) 3.9 mmol/L 3.5-5.1 CHLORIDE (test code=CL) 100.0 mmol/L 98-107 CARBON DIOXIDE (test code=CO2) mmol/L 21-32 ANION GAP (test code=GAP) 10-20 GLUCOSE (test code=GLU) mg/dL 74-106 BLOOD UREA NITROGEN (test code=BUN) mg/dL 7-18 CREATININE (test code=CREAT) mg/dL 0.7-1.3 ALBUMIN (test code=ALB) g/dL 3.4-5.0 CALCIUM (test code=CA) 9.0 mg/dL 8.5-10.1 PHOSPHORUS (test code=PHOS) mg/dL 2.5-4.9 CBC W/O [id number] 16:55:00* Test Item Value Reference Range Comments WHITE BLOOD CELL (test code=WBC) 7.5 K/mm3 4.5-12.5 RED BLOOD CELL (test code=RBC) 2.74 mill/mm3 4.0-5.8 HEMOGLOBIN (test code=HGB) 8.0 gram/dL 13.0-17.5 HEMATOCRIT (test code=HCT) 24.6 % 42.0-52.0 MEAN CELL VOLUME (test code=MCV) 89.8 fL 80-98 MEAN CELL HGB (test code=MCH) 29.2 picogram 27.0-33.0 MEAN CELL HGB CONCETRATION (test code=MCHC) 32.5 gram/dL 33.0-36.0 RED CELL DISTRIBUTION WIDTH (test code=RDW) 15.7 % 11.6-16.2 PLATELET COUNT (test code=PLT) 307 K/mm3 150-450 MEAN PLATELET VOLUME (test code=MPV) 10.2 fL 6.7-11.0 [id number] 11:17:00* Test Item Value Reference Range Comments GLUBED (test code=GLUBED) 216 mg/dL 74-106 Performed by certified control center operator at [facility] [id number] 11:06:00* Test Item Value Reference Range Comments GLUBED (test code=GLUBED) 172 mg/dL 74-106 Performed by certified control center operator at [facility] [id number] 21:30:00* Test Item Value Reference Range Comments GLUBED (test code=GLUBED) 246 mg/dL 74-106 Performed by certified control center operator at [facility] [id number] 16:06:00* Test Item Value Reference Range Comments GLUBED (test code=GLUBED) 155 mg/dL 74-106 Performed by certified control center operator at [facility] [id number] 11:19:00* Test Item Value Reference Range Comments GLUBED (test code=GLUBED) 164 mg/dL 74-106 Performed by certified control center operator at [facility] [id number] 07:25:00* Test Item Value Reference Range Comments GLUBED (test code=GLUBED) 125 mg/dL 74-106 Performed by certified control center operator at [facility] [id number] 20:09:00* Test Item Value Reference Range Comments GLUBED (test code=GLUBED) 173 mg/dL 74-106 Performed by certified control center operator at [facility] [id number] 16:11:00* Test Item Value Reference Range Comments GLUBED (test code=GLUBED) 165 mg/dL 74-106 Performed by certified control center operator at [facility] [id number] 11:08:00* Test Item Value Reference Range Comments GLUBED (test code=GLUBED) 127 mg/dL 74-106 Performed by certified control center operator at [facility] [id number] 07:13:00* Test Item Value Reference Range Comments GLUBED (test code=GLUBED) 74 mg/dL 74-106 Performed by certified control center operator at [facility] [id number] 19:58:00* Test Item Value Reference Range Comments GLUBED (test code=GLUBED) 218 mg/dL 74-106 Performed by certified control center operator at [facility] [id number] 18:17:00* Test Item Value Reference Range Comments GLUBED (test code=GLUBED) 199 mg/dL 74-106 Performed by certified control center operator at [facility] CBC W/AUTO [id number] 13:17:00* Test Item Value Reference Range Comments WHITE BLOOD CELL (test code=WBC) 12.2 K/mm3 4.5-12.5 RED BLOOD CELL (test code=RBC) 3.11 mill/mm3 4.0-5.8 HEMOGLOBIN (test code=HGB) 8.7 gram/dL 13.0-17.5 HEMATOCRIT (test code=HCT) 28.8 % 42.0-52.0 MEAN CELL VOLUME (test code=MCV) 92.6 fL 80-98 MEAN CELL HGB (test code=MCH) 28.0 picogram 27.0-33.0 MEAN CELL HGB CONCETRATION (test code=MCHC) 30.2 gram/dL 33.0-36.0 RED CELL DISTRIBUTION WIDTH (test code=RDW) 15.4 % 11.6-16.2 RED CELL DISTRIBUTION WIDTH SD (test code=RDW-SD) 50.4 fL 37.0-51.0 PLATELET COUNT (test code=PLT) 313 K/mm3 150-450 MEAN PLATELET VOLUME (test code=MPV) 10.3 fL 6.7-11.0 NEUTROPHIL % (test code=NT%) 78.1 % 39.0-69.0 IMMATURE GRANULOCYTE % (test code=IG%) 1.1 % 0.0-5.0 LYMPHOCYTE % (test code=LY%) 10.5 % 25.0-55.0 MONOCYTE % (test code=MO%) 8.3 % 0.0-10.0 EOSINOPHIL % (test code=EO%) 1.7 % 0.0-5.0 BASOPHIL % (test code=BA%) 0.3 % 0.0-1.0 NUCLEATED RBC % (test code=NRBC%) 0.0 % 0-0 NEUTROPHIL # (test code=NT#) 9.53 K/mm3 1.8-7.7 IMMATURE GRANULOCYTE # (test code=IG#) 0.13 x10 3/uL 0-0.03 LYMPHOCYTE # (test code=LY#) 1.28 K/mm3 1.0-5.0 MONOCYTE # (test code=MO#) 1.01 K/mm3 0-0.8 EOSINOPHIL # (test code=EO#) 0.21 K/mm3 0.0-0.5 BASOPHIL # (test code=BA#) 0.04 K/mm3 0.0-0.2 NUCLEATED RBC # (test code=NRBC#) 0.00 K/mm3 0.0-0.1 MANUAL DIFF REQUIRED (test code=MDIFF) NO PATIENT NOT IN [id number] 12:13:00* Test Item Value Reference Range Comments GLUBED (test code=GLUBED) 139 mg/dL 74-106 Performed by certified control center operator at [facility] [id number] 11:58:00* Test Item Value Reference Range Comments GLUBED (test code=GLUBED) 165 mg/dL 74-106 Performed by certified control center operator at [facility] BASIC METABOLIC [id number] 10:51:00* Test Item Value Reference Range Comments SODIUM (test code=NA) 134 mmol/L 136-145 POTASSIUM (test code=K) 4.9 mmol/L 3.5-5.1 CHLORIDE (test code=CL) 101.0 mmol/L 98-107 CARBON DIOXIDE (test code=CO2) 22.0 mmol/L 21-32 ANION GAP (test code=GAP) 15.9 10-20 GLUCOSE (test code=GLU) 135 mg/dL 74-106 BLOOD UREA NITROGEN (test code=BUN) 35 mg/dL 7-18 GLOMERULAR FILTRATION RATE (test code=GFR) 11 mL/min >=60 Estimated GFR by using Modified MDRD formula.Chronic kidney disease is defined as either kidney damageor GFR <60 mL/min/1.73 m2 for >3 months. CREATININE (test code=CREAT) 5.20 mg/dL 0.7-1.3 BUN/CREATININE RATIO (test code=BUN/CREA) 6.7 10-20 CALCIUM (test code=CA) 8.9 mg/dL 8.5-10.1 PATIENT NOT IN [id number] 07:06:00* Test Item Value Reference Range Comments GLUBED (test code=GLUBED) 117 mg/dL 74-106 Performed by certified control center operator at [facility] [id number] 20:34:00* Test Item Value Reference Range Comments GLUBED (test code=GLUBED) 141 mg/dL 74-106 Performed by certified control center operator at [facility] [id number] 16:04:00* Test Item Value Reference Range Comments GLUBED (test code=GLUBED) 156 mg/dL 74-106 [facility]~ [id number] 11:08:00* Test Item Value Reference Range Comments GLUBED (test code=GLUBED) 193 mg/dL 74-106 Performed by certified control center operator at [facility] [id number] 07:52:00* Test Item Value Reference Range Comments GLUBED (test code=GLUBED) 167 mg/dL 74-106 [facility]~ COMPREHENSIVE METABOLIC [id number] 07:00:00* Test Item Value Reference Range Comments SODIUM (test code=NA) 140 mmol/L 136-145 POTASSIUM (test code=K) 3.7 mmol/L 3.5-5.1 CHLORIDE (test code=CL) 102.0 mmol/L 98-107 CARBON DIOXIDE (test code=CO2) 30.0 mmol/L 21-32 ANION GAP (test code=GAP) 11.7 10-20 GLUCOSE (test code=GLU) 177 mg/dL 74-106 BLOOD UREA NITROGEN (test code=BUN) 24 mg/dL 7-18 GLOMERULAR FILTRATION RATE (test code=GFR) 16 mL/min >=60 Estimated GFR by using Modified MDRD formula.Chronic kidney disease is defined as either kidney damageor GFR <60 mL/min/1.73 m2 for >3 months. CREATININE (test code=CREAT) 3.90 mg/dL 0.7-1.3 BUN/CREATININE RATIO (test code=BUN/CREA) 6.2 10-20 TOTAL PROTEIN (test code=PROT) 7.3 gram/dL 6.4-8.2 ALBUMIN (test code=ALB) 2.1 g/dL 3.4-5.0 GLOBULIN (test code=GLOB) 5.2 gram/dL 2.7-4.2 ALBUMIN/GLOBULIN RATIO (test code=A/G) 0.4 0.75-1.50 CALCIUM (test code=CA) 9.2 mg/dL 8.5-10.1 BILIRUBIN TOTAL (test code=BILT) 0.40 mg/dL 0.0-1.0 SGOT/AST (test code=AST) 26 IUnit/L 15-37 SGPT/ALT (test code=ALT) 40 IUnit/L 12-78 ALKALINE PHOSPHATASE TOTAL (test code=ALKP) 93 IUnit/L 45-117 Note change in reference range due to change in reagent. COMPREHENSIVE METABOLIC [id number] 06:49:00* Test Item Value Reference Range Comments SODIUM (test code=NA) 140 mmol/L 136-145 POTASSIUM (test code=K) 3.7 mmol/L 3.5-5.1 CHLORIDE (test code=CL) 102.0 mmol/L 98-107 CARBON DIOXIDE (test code=CO2) mmol/L 21-32 ANION GAP (test code=GAP) 10-20 GLUCOSE (test code=GLU) mg/dL 74-106 BLOOD UREA NITROGEN (test code=BUN) mg/dL 7-18 GLOMERULAR FILTRATION RATE (test code=GFR) mL/min >=60 CREATININE (test code=CREAT) mg/dL 0.7-1.3 BUN/CREATININE RATIO (test code=BUN/CREA) 10-20 TOTAL PROTEIN (test code=PROT) gram/dL 6.4-8.2 ALBUMIN (test code=ALB) g/dL 3.4-5.0 GLOBULIN (test code=GLOB) gram/dL 2.7-4.2 ALBUMIN/GLOBULIN RATIO (test code=A/G) 0.75-1.50 CALCIUM (test code=CA) mg/dL 8.5-10.1 BILIRUBIN TOTAL (test code=BILT) mg/dL 0.0-1.0 SGOT/AST (test code=AST) IUnit/L 15-37 SGPT/ALT (test code=ALT) IUnit/L 12-78 ALKALINE PHOSPHATASE TOTAL (test code=ALKP) IUnit/L 45-117 CBC W/AUTO [id number] 06:19:00* Test Item Value Reference Range Comments WHITE BLOOD CELL (test code=WBC) 10.7 K/mm3 4.5-12.5 RED BLOOD CELL (test code=RBC) 3.12 mill/mm3 4.0-5.8 HEMOGLOBIN (test code=HGB) 8.8 gram/dL 13.0-17.5 HEMATOCRIT (test code=HCT) 27.5 % 42.0-52.0 MEAN CELL VOLUME (test code=MCV) 88.1 fL 80-98 MEAN CELL HGB (test code=MCH) 28.2 picogram 27.0-33.0 MEAN CELL HGB CONCETRATION (test code=MCHC) 32.0 gram/dL 33.0-36.0 RED CELL DISTRIBUTION WIDTH (test code=RDW) 14.8 % 11.6-16.2 RED CELL DISTRIBUTION WIDTH SD (test code=RDW-SD) 46.5 fL 37.0-51.0 PLATELET COUNT (test code=PLT) 316 K/mm3 150-450 MEAN PLATELET VOLUME (test code=MPV) 10.7 fL 6.7-11.0 NEUTROPHIL % (test code=NT%) 80.0 % 39.0-69.0 IMMATURE GRANULOCYTE % (test code=IG%) 0.9 % 0.0-5.0 LYMPHOCYTE % (test code=LY%) 11.2 % 25.0-55.0 MONOCYTE % (test code=MO%) 7.3 % 0.0-10.0 EOSINOPHIL % (test code=EO%) 0.1 % 0.0-5.0 BASOPHIL % (test code=BA%) 0.5 % 0.0-1.0 NUCLEATED RBC % (test code=NRBC%) 0.0 % 0-0 NEUTROPHIL # (test code=NT#) 8.57 K/mm3 1.8-7.7 IMMATURE GRANULOCYTE # (test code=IG#) 0.10 x10 3/uL 0-0.03 LYMPHOCYTE # (test code=LY#) 1.20 K/mm3 1.0-5.0 MONOCYTE # (test code=MO#) 0.78 K/mm3 0-0.8 EOSINOPHIL # (test code=EO#) 0.01 K/mm3 0.0-0.5 BASOPHIL # (test code=BA#) 0.05 K/mm3 0.0-0.2 NUCLEATED RBC # (test code=NRBC#) 0.00 K/mm3 0.0-0.1 MANUAL DIFF REQUIRED (test code=MDIFF) NO [id number] 20:40:00* Test Item Value Reference Range Comments GLUBED (test code=GLUBED) 320 mg/dL 74-106 Performed by certified control center operator at [facility] INFECTION CONTROL [id number] 20:07:00* Test Item Value Reference Range Comments HEPATITIS C RNA BY PCR (QUAL) (test code=HCVRNAPCR) Negative Negative Negative: HCV RNA Not DetectedPerformed At: [facility] [address] [id number] Sanjai MD Ph:[phone] AG HEPAT B SURF (test code=HBSAG) Nonreactive Index Nonreactive HEPATITIS B CORE ANTIBODY,TOT (test code=HBCAB) Negative Negative Performed At: [facility] [address] [id number] Jaret Jiménez MD Ph:[phone] AB HEPATITIS C (test code=HCVAB) <0.1 0.0-0.9 INFCE Result Units: s/co ratio Negative: < 0.8 Indeterminate: 0.8 - 0.9 Positive: > 0.9 The CDC recommends that a positive HCV antibody result be followed up with a HCV Nucleic Acid Amplification test (357595). HIV 1 2 COMBO AG/AB SCREEN (test code=[id number]) AB/AG NON REACTIVE NONREACTIVE NONREACTIVE HIV P24 ANTIGEN NONREACTIVE NONREACTIVE HIV 1&2 ANTIBODY NONREACTIVE THE HIV-1 P24 TEST HELPS DISTINGUISH ACUTE HIV- 1INFECTIONFROM ESTABLISHED HIV-1 INFECTION WHEN THE SPECIMEN ISPOSITIVE FOR HIV- 1 P24 ANTIGEN.HIV-1 P24 ANTIGEN IS HIGHEST IN THE FIRST FEW WEEKS AFTERINFECTION - XR CHEST 1 [id number] 19:14:00 FAX: Rojelio Padron Fo [place]: B St: ADM Name: TORRES CAN [facility] : [birth year] 57 Age/S: 58/M [address] Unit #: [id number] Loc: V.3100 [place], [place] [address] Phys: LesRojelio Rivero Skylar jaffe DO Acct: [id number] Dis Date: Status: ADM IN PHONE #: [phone] Exam Date: 03/13/2019 1850 FAX #: [phone] Reason: RESP FAILURE EXAMS: CPT CODE: [id number] XR CHEST 1 V 82118 REASON FOR EXAM: RESP FAILURE Exam Order Date: 03/13/2019 12:00 AM Ordering M.DCarmita: Rojelio Saldana DO PROCEDURE: - XR CHEST 1 V COMPARISON: Frontal chest x-ray March 06, 2019 FINDINGS: The lungs are clear. There is no pleural effusion or pneumothorax. P ulmonary vascularity is within normal limits. Right IJ dialysis ca theter terminates in the cavoatrial junction, similar to prior exam. Cardiomediastinal silhouette is normal in size for technique. The mediastinal contours are within normal limits. Musculoskeletal st ructures are within normal limits. The visualized upper abdomen is within normal limits. IMPRESSION: No acute card iopulmonary process. Electronically Signed by Ken Marie MD on 02/2019 at 1914 Reported and signed by: Ken Marie MD CC: Rojelio Saldana DO Technologist: TRICIA CORREA; Huy Jackson, RT(R Trnscrd Date/Time/By: 03/13/2019 (1913) : By: [email or web address] Orig Print D/T: S: 03/13/2019 (1916) PAGE 1 Signed Report [id number] 15:43:00* Test Item Value Reference Range Comments GLUBED (test code=GLUBED) 277 mg/dL 74-106 Performed by certified control center operator at [facility] [id number] 12:33:00* Test Item Value Reference Range Comments GLUBED (test code=GLUBED) 279 mg/dL 74-106 Performed by certified control center operator at [facility] BASIC METABOLIC [id number] 05:42:00* Test Item Value Reference Range Comments SODIUM (test code=NA) 134 mmol/L 136-145 POTASSIUM (test code=K) 3.9 mmol/L 3.5-5.1 CHLORIDE (test code=CL) 99.0 mmol/L 98-107 CARBON DIOXIDE (test code=CO2) 25.0 mmol/L 21-32 ANION GAP (test code=GAP) 13.9 10-20 GLUCOSE (test code=GLU) 242 mg/dL 74-106 BLOOD UREA NITROGEN (test code=BUN) 40 mg/dL 7-18 GLOMERULAR FILTRATION RATE (test code=GFR) 10 mL/min >=60 Estimated GFR by using Modified MDRD formula.Chronic kidney disease is defined as either kidney damageor GFR <60 mL/min/1.73 m2 for >3 months. CREATININE (test code=CREAT) 5.60 mg/dL 0.7-1.3 BUN/CREATININE RATIO (test code=BUN/CREA) 7.2 10-20 CALCIUM (test code=CA) 8.8 mg/dL 8.5-10.1 CBC W/AUTO [id number] 05:36:00* Test Item Value Reference Range Comments WHITE BLOOD CELL (test code=WBC) 9.8 K/mm3 4.5-12.5 RED BLOOD CELL (test code=RBC) 2.96 mill/mm3 4.0-5.8 HEMOGLOBIN (test code=HGB) 8.3 gram/dL 13.0-17.5 HEMATOCRIT (test code=HCT) 26.5 % 42.0-52.0 MEAN CELL VOLUME (test code=MCV) 89.5 fL 80-98 MEAN CELL HGB (test code=MCH) 28.0 picogram 27.0-33.0 MEAN CELL HGB CONCETRATION (test code=MCHC) 31.3 gram/dL 33.0-36.0 RED CELL DISTRIBUTION WIDTH (test code=RDW) 14.6 % 11.6-16.2 RED CELL DISTRIBUTION WIDTH SD (test code=RDW-SD) 46.5 fL 37.0-51.0 PLATELET COUNT (test code=PLT) 290 K/mm3 150-450 MEAN PLATELET VOLUME (test code=MPV) 11.0 fL 6.7-11.0 NEUTROPHIL % (test code=NT%) 82.3 % 39.0-69.0 IMMATURE GRANULOCYTE % (test code=IG%) 1.2 % 0.0-5.0 LYMPHOCYTE % (test code=LY%) 9.1 % 25.0-55.0 MONOCYTE % (test code=MO%) 7.2 % 0.0-10.0 EOSINOPHIL % (test code=EO%) 0.0 % 0.0-5.0 BASOPHIL % (test code=BA%) 0.2 % 0.0-1.0 NUCLEATED RBC % (test code=NRBC%) 0.0 % 0-0 NEUTROPHIL # (test code=NT#) 8.09 K/mm3 1.8-7.7 IMMATURE GRANULOCYTE # (test code=IG#) 0.12 x10 3/uL 0-0.03 LYMPHOCYTE # (test code=LY#) 0.89 K/mm3 1.0-5.0 MONOCYTE # (test code=MO#) 0.71 K/mm3 0-0.8 EOSINOPHIL # (test code=EO#) 0.00 K/mm3 0.0-0.5 BASOPHIL # (test code=BA#) 0.02 K/mm3 0.0-0.2 NUCLEATED RBC # (test code=NRBC#) 0.00 K/mm3 0.0-0.1 MANUAL DIFF REQUIRED (test code=MDIFF) NO [id number] 19:50:00* Test Item Value Reference Range Comments GLUBED (test code=GLUBED) 194 mg/dL 74-106 Performed by certified control center operator at [facility] [id number] 19:50:00* Test Item Value Reference Range Comments GLUBED (test code=GLUBED) 188 mg/dL 74-106 Performed by certified control center operator at [facility] [id number] 19:49:00* Test Item Value Reference Range Comments GLUBED (test code=GLUBED) 161 mg/dL 74-106 Performed by certified control center operator at [facility] [id number] 12:44:00* Test Item Value Reference Range Comments GLUBED (test code=GLUBED) 158 mg/dL 74-106 Performed by certified control center operator at [facility] [id number] 08:15:00* Test Item Value Reference Range Comments GLUBED (test code=GLUBED) 149 mg/dL 74-106 Performed by certified control center operator at [facility] INFECTION CONTROL [id number] 06:09:00* Test Item Value Reference Range Comments HEPATITIS C RNA BY PCR (QUAL) (test code=HCVRNAPCR) Notdetected AG HEPAT B SURF (test code=HBSAG) Nonreactive Index Nonreactive HEPATITIS B CORE ANTIBODY,TOT (test code=HBCAB) NEGATIVE AB HEPATITIS C (test code=HCVAB) <0.1 0.0-0.9 INFCE Result Units: s/co ratio Negative: < 0.8 Indeterminate: 0.8 - 0.9 Positive: > 0.9 The CDC recommends that a positive HCV antibody result be followed up with a HCV Nucleic Acid Amplification test (344468). HIV 1 2 COMBO AG/AB SCREEN (test code=[id number]) AB/AG NON REACTIVE NONREACTIVE NONREACTIVE HIV P24 ANTIGEN NONREACTIVE NONREACTIVE HIV 1&2 ANTIBODY NONREACTIVE THE HIV-1 P24 TEST HELPS DISTINGUISH ACUTE HIV- 1INFECTIONFROM ESTABLISHED HIV-1 INFECTION WHEN THE SPECIMEN ISPOSITIVE FOR HIV- 1 P24 ANTIGEN.HIV-1 P24 ANTIGEN IS HIGHEST IN THE FIRST FEW WEEKS AFTERINFECTION INFECTION CONTROL [id number] 06:09:00* Test Item Value Reference Range Comments HEPATITIS C RNA BY PCR (QUAL) (test code=HCVRNAPCR) Notdetected AG HEPAT B SURF (test code=HBSAG) Nonreactive Index Nonreactive HEPATITIS B CORE ANTIBODY,TOT (test code=HBCAB) Negative Negative Performed At: [facility] [address] [id number] Jaret Jiménez MD Ph:[phone] AB HEPATITIS C (test code=HCVAB) <0.1 0.0-0.9 INFCE Result Units: s/co ratio Negative: < 0.8 Indeterminate: 0.8 - 0.9 Positive: > 0.9 The CDC recommends that a positive HCV antibody result be followed up with a HCV Nucleic Acid Amplification test (356338). HIV 1 2 COMBO AG/AB SCREEN (test code=[id number]) AB/AG NON REACTIVE NONREACTIVE NONREACTIVE HIV P24 ANTIGEN NONREACTIVE NONREACTIVE HIV 1&2 ANTIBODY NONREACTIVE THE HIV-1 P24 TEST HELPS DISTINGUISH ACUTE HIV- 1INFECTIONFROM ESTABLISHED HIV-1 INFECTION WHEN THE SPECIMEN ISPOSITIVE FOR HIV- 1 P24 ANTIGEN.HIV-1 P24 ANTIGEN IS HIGHEST IN THE FIRST FEW WEEKS AFTERINFECTION BASIC METABOLIC [id number] 03:04:00* Test Item Value Reference Range Comments SODIUM (test code=NA) 137 mmol/L 136-145 POTASSIUM (test code=K) 3.8 mmol/L 3.5-5.1 CHLORIDE (test code=CL) 100.0 mmol/L 98-107 CARBON DIOXIDE (test code=CO2) 27.0 mmol/L 21-32 ANION GAP (test code=GAP) 13.8 10-20 GLUCOSE (test code=GLU) 167 mg/dL 74-106 BLOOD UREA NITROGEN (test code=BUN) 29 mg/dL 7-18 GLOMERULAR FILTRATION RATE (test code=GFR) 15 mL/min >=60 Estimated GFR by using Modified MDRD formula.Chronic kidney disease is defined as either kidney damageor GFR <60 mL/min/1.73 m2 for >3 months. CREATININE (test code=CREAT) 4.00 mg/dL 0.7-1.3 BUN/CREATININE RATIO (test code=BUN/CREA) 7.3 10-20 CALCIUM (test code=CA) 8.5 mg/dL 8.5-10.1 BASIC METABOLIC [id number] 02:54:00* Test Item Value Reference Range Comments SODIUM (test code=NA) 137 mmol/L 136-145 POTASSIUM (test code=K) 3.8 mmol/L 3.5-5.1 CHLORIDE (test code=CL) 100.0 mmol/L 98-107 CARBON DIOXIDE (test code=CO2) mmol/L 21-32 ANION GAP (test code=GAP) 10-20 GLUCOSE (test code=GLU) mg/dL 74-106 BLOOD UREA NITROGEN (test code=BUN) mg/dL 7-18 GLOMERULAR FILTRATION RATE (test code=GFR) mL/min >=60 CREATININE (test code=CREAT) mg/dL 0.7-1.3 BUN/CREATININE RATIO (test code=BUN/CREA) 10-20 CALCIUM (test code=CA) mg/dL 8.5-10.1 CBC W/AUTO [id number] 02:41:00* Test Item Value Reference Range Comments WHITE BLOOD CELL (test code=WBC) 8.3 K/mm3 4.5-12.5 RED BLOOD CELL (test code=RBC) 2.92 mill/mm3 4.0-5.8 HEMOGLOBIN (test code=HGB) 8.1 gram/dL 13.0-17.5 HEMATOCRIT (test code=HCT) 25.9 % 42.0-52.0 MEAN CELL VOLUME (test code=MCV) 88.7 fL 80-98 MEAN CELL HGB (test code=MCH) 27.7 picogram 27.0-33.0 MEAN CELL HGB CONCETRATION (test code=MCHC) 31.3 gram/dL 33.0-36.0 RED CELL DISTRIBUTION WIDTH (test code=RDW) 14.5 % 11.6-16.2 RED CELL DISTRIBUTION WIDTH SD (test code=RDW-SD) 46.1 fL 37.0-51.0 PLATELET COUNT (test code=PLT) 257 K/mm3 150-450 MEAN PLATELET VOLUME (test code=MPV) 10.9 fL 6.7-11.0 NEUTROPHIL % (test code=NT%) 76.2 % 39.0-69.0 IMMATURE GRANULOCYTE % (test code=IG%) 1.1 % 0.0-5.0 LYMPHOCYTE % (test code=LY%) 14.3 % 25.0-55.0 MONOCYTE % (test code=MO%) 8.2 % 0.0-10.0 EOSINOPHIL % (test code=EO%) 0.0 % 0.0-5.0 BASOPHIL % (test code=BA%) 0.2 % 0.0-1.0 NUCLEATED RBC % (test code=NRBC%) 0.0 % 0-0 NEUTROPHIL # (test code=NT#) 6.30 K/mm3 1.8-7.7 IMMATURE GRANULOCYTE # (test code=IG#) 0.09 x10 3/uL 0-0.03 LYMPHOCYTE # (test code=LY#) 1.18 K/mm3 1.0-5.0 MONOCYTE # (test code=MO#) 0.68 K/mm3 0-0.8 EOSINOPHIL # (test code=EO#) 0.00 K/mm3 0.0-0.5 BASOPHIL # (test code=BA#) 0.02 K/mm3 0.0-0.2 NUCLEATED RBC # (test code=NRBC#) 0.00 K/mm3 0.0-0.1 MANUAL DIFF REQUIRED (test code=MDIFF) NO [id number] 20:50:00* Test Item Value Reference Range Comments GLUBED (test code=GLUBED) 128 mg/dL 74-106 Performed by certified control center operator at [facility] [id number] 18:16:00* Test Item Value Reference Range Comments GLUBED (test code=GLUBED) 172 mg/dL 74-106 Performed by certified control center operator at [facility] [id number] 18:16:00* Test Item Value Reference Range Comments GLUBED (test code=GLUBED) 172 mg/dL 74-106 Performed by certified control center operator at [facility] EXTREMITY AMP.,[id number] 14:33:00 RUN DATE: 03/11/19 [place] [facility] PAGE 1 RUN TIME: 1433 Specimen Inqui ry RUN USER: INTERFACE PATIENT: TORRES MAI ACCT #: [id number] LOC: V.MTU U #: [id number] AGE/SX: 58/M ROOM: [facility] RE02/19/19[facility] DR: Slava Gustafson MD : 56 BED: A DIS: STATUS: ADM IN TLOC: SPEC #: [id number] RECD: 03/06/19 STATUS: VIANEY [place] #: [id number] ANNETTE: 03/05/19 [facility] DR: Jaqueline Roberts MD ENTERED: 03/06/19 SP TYPE: EXTREMITY OTHR DR: Rebeka Lugo DPFranklin Shelton DPTeddy Quezada MD, am,Jaqueline Saldana,Sana العراقي Pek Contreras DO Shanta,Jd hein,Shayan Salazar,Eric boss,Jayson Tejeda,Andrew Ibarra MDORDERED: GROSS COPIES TO: Josue Lugo DPM [address] [facility] [place] [address] Conor Morse DPM [address] [place], [place] [address] Teddy Lim MD [address] [place] [address] Jaqueline Roberts MD [address] [place], [place] [address] Rojelio Saldana Pek Contreras DO [address] [place], [place] [address] [place] [address] [facility] [address] [place], [place] [id number] CONTINUED ON NEXT PAGE RUN DATE: [place] [facility] PAGE 2 RUN TIME: 1433 Specimen Inquiry RU N USER: INTERFACE ---- --------SPEC #: [id number] PATIENT: TORRES MAI #[id number] (Continued) COPIES TO: (Continued) Shayan Macdonald MD [address] [facility] [address] [place], [place] [address] Eric Cano MD [address] [facility] [place] [address] Jayson Veloz MD [address] [address] Andrew Taylor MD [address] [facility] [address] [place] [address] PROCEDURES: GROSS (03/11/19-1008) TISSUES: RIGHT LEG - LOWER CLINICAL HISTORY COLLECTION DATE: 03/05/2019 OSTEOMYEL ITIS FINAL DIAGNOSIS Right lower leg, below knee amputation: U LCERATION WITH MARKED ACUTE INFLAMMATION, NECROSIS, FIBROSIS AND FAT NE JENNIE MARKED ATHEROSCLEROTIC CHANGES VIABLE SURGICAL MARGIN NEGATIVE FOR MALIGNANCY FA/sm D 10733, [address] CONTINUED ON NEXT PAGE RUN DATE: 03/11/19 [place] [facility] PAGE 3 RUN TIME: 33 Specimen Inquiry RUN USER: INTE RFACE SPEC #: [id number] PATIENT: TORRES MAI #[id number] (Co ntinued) MACROSCOPIC The specimen is received without fixative in a biohazard bag labeled with the patient's name and medical record number. 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 The specimen measures 32 cm from proximal soft tissue margin of re section with a foot length and 26.5 cm. A segment of fibula extends 5.0 cm be yond the soft tissue margin of resection and a segment of tibia measuring 5.0 cm in length also extends beyond the soft tissue margin of resection. Toes 1- 4 are present with their nails. The toe of the first digit is pale yellow and thickened. The remaining nails are unremarkable appearing. A large area of necrotic ulceration is present at the lateral edge of the foot extending onto the plantar and dorsal surfaces. The discoloration extends to the base of the absent fifth toe and to the lateral edge of the fourth toe. The area of ulce ration/discoloration measures 14.0 by up to 8.0 cm. Rounded metatarsal bone i s exposed in the area of ulceration. Erythematous change extends of the dorsa l surface towards the medial side of the foot. Marked softening and necrosis is present within the wound. The arteries are narrowed and subtotally occlude d with plaque formation. Section Code: 1A- section through area of ulcer ation/necrosis; 1B- medical office representative proximal soft tissue margin en face; 1C- se ction of vessels, decal GROSS PERFORMED AT [facility] [address] [facility] [place] [address] [phone] MICROSCOPIC All of the stains, including any controls performed, stain appropriately. MICROSCOPIC PERFORMED AT [facility] [address] [place] [address] [phone] PERFORMING SITE Diagnosis performed at : [facility] [address] [facility] [address] CONTINUED ON NEXT PAGE RUN DATE: 03/11/19 [place] [facility] PAGE 4 RUN TIME: 1433 Specimen Inquiry RUN USER: INTERFACE -- SPEC #: [id number] PATIENT: TORRES MAI #[id number] (Continued) Signed SIGNATURE ON FILE Hitesh Dougherty MD 03/11/19 1433 END OF REPORT [id number] 09:24:00* Test Item Value Reference Range Comments GLUBED (test code=GLUBED) 57 mg/dL 74-106 Performed by certified control center operator at [facility] BASIC METABOLIC [id number] 03:16:00* Test Item Value Reference Range Comments SODIUM (test code=NA) 137 mmol/L 136-145 POTASSIUM (test code=K) 3.8 mmol/L 3.5-5.1 CHLORIDE (test code=CL) 99.0 mmol/L 98-107 CARBON DIOXIDE (test code=CO2) 25.0 mmol/L 21-32 ANION GAP (test code=GAP) 16.8 10-20 GLUCOSE (test code=GLU) 116 mg/dL 74-106 BLOOD UREA NITROGEN (test code=BUN) 55 mg/dL 7-18 RESULT VERIFIED BY REPEAT ANALYSIS GLOMERULAR FILTRATION RATE (test code=GFR) 9 mL/min >=60 Estimated GFR by using Modified MDRD formula.Chronic kidney disease is defined as either kidney damageor GFR <60 mL/min/1.73 m2 for >3 months. CREATININE (test code=CREAT) 6.50 mg/dL 0.7-1.3 BUN/CREATININE RATIO (test code=BUN/CREA) 8.5 10-20 CALCIUM (test code=CA) 8.5 mg/dL 8.5-10.1 CBC W/AUTO [id number] 02:30:00* Test Item Value Reference Range Comments WHITE BLOOD CELL (test code=WBC) 8.4 K/mm3 4.5-12.5 RED BLOOD CELL (test code=RBC) 3.06 mill/mm3 4.0-5.8 HEMOGLOBIN (test code=HGB) 8.4 gram/dL 13.0-17.5 HEMATOCRIT (test code=HCT) 27.0 % 42.0-52.0 MEAN CELL VOLUME (test code=MCV) 88.2 fL 80-98 MEAN CELL HGB (test code=MCH) 27.5 picogram 27.0-33.0 MEAN CELL HGB CONCETRATION (test code=MCHC) 31.1 gram/dL 33.0-36.0 RED CELL DISTRIBUTION WIDTH (test code=RDW) 14.3 % 11.6-16.2 RED CELL DISTRIBUTION WIDTH SD (test code=RDW-SD) 45.1 fL 37.0-51.0 PLATELET COUNT (test code=PLT) 264 K/mm3 150-450 MEAN PLATELET VOLUME (test code=MPV) 11.0 fL 6.7-11.0 NEUTROPHIL % (test code=NT%) 77.5 % 39.0-69.0 IMMATURE GRANULOCYTE % (test code=IG%) 1.0 % 0.0-5.0 LYMPHOCYTE % (test code=LY%) 13.4 % 25.0-55.0 MONOCYTE % (test code=MO%) 7.6 % 0.0-10.0 EOSINOPHIL % (test code=EO%) 0.1 % 0.0-5.0 BASOPHIL % (test code=BA%) 0.4 % 0.0-1.0 NUCLEATED RBC % (test code=NRBC%) 0.0 % 0-0 NEUTROPHIL # (test code=NT#) 6.52 K/mm3 1.8-7.7 IMMATURE GRANULOCYTE # (test code=IG#) 0.08 x10 3/uL 0-0.03 LYMPHOCYTE # (test code=LY#) 1.13 K/mm3 1.0-5.0 MONOCYTE # (test code=MO#) 0.64 K/mm3 0-0.8 EOSINOPHIL # (test code=EO#) 0.01 K/mm3 0.0-0.5 BASOPHIL # (test code=BA#) 0.03 K/mm3 0.0-0.2 NUCLEATED RBC # (test code=NRBC#) 0.00 K/mm3 0.0-0.1 INFECTION CONTROL [id number] 21:47:00* Test Item Value Reference Range Comments HEPATITIS C RNA BY PCR (QUAL) (test code=HCVRNAPCR) Notdetected AG HEPAT B SURF (test code=HBSAG) Nonreactive Index Nonreactive HEPATITIS B CORE ANTIBODY,TOT (test code=HBCAB) NEGATIVE AB HEPATITIS C (test code=HCVAB) NEGATIVE HIV 1 2 COMBO AG/AB SCREEN (test code=[id number]) AB/AG NON REACTIVE NONREACTIVE NONREACTIVE HIV P24 ANTIGEN NONREACTIVE NONREACTIVE HIV 1&2 ANTIBODY NONREACTIVE THE HIV-1 P24 TEST HELPS DISTINGUISH ACUTE HIV- 1INFECTIONFROM ESTABLISHED HIV-1 INFECTION WHEN THE SPECIMEN ISPOSITIVE FOR HIV- 1 P24 ANTIGEN.HIV-1 P24 ANTIGEN IS HIGHEST IN THE FIRST FEW WEEKS AFTERINFECTION INFECTION CONTROL [id number] 21:46:00* Test Item Value Reference Range Comments HEPATITIS C RNA BY PCR (QUAL) (test code=HCVRNAPCR) Notdetected AG HEPAT B SURF (test code=HBSAG) Index Nonreactive HEPATITIS B CORE ANTIBODY,TOT (test code=HBCAB) NEGATIVE AB HEPATITIS C (test code=HCVAB) NEGATIVE HIV 1 2 COMBO AG/AB SCREEN (test code=[id number]) AB/AG NON REACTIVE NONREACTIVE NONREACTIVE HIV P24 ANTIGEN NONREACTIVE NONREACTIVE HIV 1&2 ANTIBODY NONREACTIVE THE HIV-1 P24 TEST HELPS DISTINGUISH ACUTE HIV- 1INFECTIONFROM ESTABLISHED HIV-1 INFECTION WHEN THE SPECIMEN ISPOSITIVE FOR HIV- 1 P24 ANTIGEN.HIV-1 P24 ANTIGEN IS HIGHEST IN THE FIRST FEW WEEKS AFTERINFECTION INFECTION CONTROL [id number] 21:27:00* Test Item Value Reference Range Comments HEPATITIS C RNA BY PCR (QUAL) (test code=HCVRNAPCR) Notdetected AG HEPAT B SURF (test code=HBSAG) Index Nonreactive HEPATITIS B CORE ANTIBODY,TOT (test code=HBCAB) NEGATIVE AB HEPATITIS C (test code=HCVAB) NEGATIVE HIV 1 2 COMBO AG/AB SCREEN (test code=[id number]) AB/AG NON REACTIVE NONREACTIVE NONREACTIVE HIV P24 ANTIGEN NONREACTIVE NONREACTIVE HIV 1&2 ANTIBODY NONREACTIVE THE HIV-1 P24 TEST HELPS DISTINGUISH ACUTE HIV- 1INFECTIONFROM ESTABLISHED HIV-1 INFECTION WHEN THE SPECIMEN ISPOSITIVE FOR HIV- 1 P24 ANTIGEN.RESULTS CALLED TO Mandy MATTSON BY SHEYJP1 03/10/19 2127HIV-1 P24 ANTIGEN IS HIGHEST IN THE FIRST FEW WEEKS AFTERINFECTION [id number] 20:32:00* Test Item Value Reference Range Comments GLUBED (test code=GLUBED) 223 mg/dL 74-106 Performed by certified control center operator at [facility] [id number] 15:58:00* Test Item Value Reference Range Comments GLUBED (test code=GLUBED) 173 mg/dL 74-106 Performed by certified control center operator at [facility] [id number] 11:54:00* Test Item Value Reference Range Comments GLUBED (test code=GLUBED) 177 mg/dL 74-106 Performed by certified control center operator at [facility] - SP FLUORO GUID CTRL ACC [id number] 09:56:00 Name: TORRES MAI [facility] : 1960 Age/S: 58 / M [address] [facility] Unit #: [id number] Loc: [place] [address] Phys: Slava Gustafson MD Acct: [id number] Dis Date: Status: ADM IN PHONE #: [phone] Exam Date: 03/06/2019 0947 FAX #: [phone] Reason: / EXAMS: CPT CODE: [id number] SP FLUORO GUID CTRL ACC DEV 87017 Fluoro Time: 21 DAP (Gy m2): 0.73 Air Kerma (mGy): 2 EXAM: Insertion of a tunneled hemodialysis catheter with sonographic and fluoroscopic guidance and conscious sedation; INFORMATION: Chronic renal failure; TECHNIQUE AND FINDINGS: Conscious sedation start time: 0932 hours; Completion time: 0947 hours; Under physician supervision 1 mg of Versed and 25 mcg of fentanyl were administered intravenously. The patient's heart rate, blood pressure and pulse oximetry were continuously monitored by a trained registered nurse. Physician [id number] sedation time was 15 minutes. After obtaining informed consent, the patient was placed supine on the procedure table. Ultrasound of the neck showed a patent and compressible right internal jugular vein. Sonographic images were stored in PACS. Conscious sedation was initiated as described above. The patient's skin in the right neck region was prepped and draped in the usual sterile fashion. Xylocaine was administered and using sonographic guidance the right IJ was accessed with a micropuncture system, followed by insertion of an 035 guidewire. Sequential dilatation was performed under fluor oscopic guidance and a subcutaneous tunnel was created in the usual steril e fashion. A tunneled hemodialysis catheter was inserted and positioned w ith its tip at the SVC/right atrial junction. Good blood return was notic ed. The catheter was sutured to the skin and flushed with heparinized saline. No complications. IMPRESSION: Successful insertion of a tunneled hemodialysis catheter with sonographic and fluo roscopic guidance and conscious sedation. Fluoroscopy Time: 21 sec CAK : 2 mGy DAP : 730 mGy sq cm Elec tronically Signed by Lanette Moya on 019 at 0956 Reported and signed by: Lambert Moya M.D. PAGE 1 Signed Report (CONTINUED) Name: TORRES MAI [facility] : 1960 Age/S: 58 / M [address] [facility] Unit #: [id number] Loc: [place] [address] Phys: Slava Gustafson MD Acct: [id number] Dis Date: Status: ADM IN PHONE #: [phone] Exam Date: 03/06/2019 0947 FAX #: [phone] Reason: / EXAMS: CPT CODE: [id number] SP FLUORO GUID CTRL ACC DEV 69505 Fluoro Time: 21 DAP (Gy m2): 0.73 Air Kerma (mGy): 2 <Continued> CC: Slava Gustafson MD Technologist: JAQUELINE LING FIELD NURSE Trnscb Date/Time: 03/10/2019 (0956) [email or web address] Orig Print D/T: S: 03/10/2019 (0969) PAGE 2 Signed Report - US GUIDANCE VASC [id number] 09:56:00 Name: TORRES MAI [facility] : 1960 Age/S: 58 / M [address] Unit #: [id number] Loc: [place] [place] [address] Phys: Slava Gustafson MD Acct: [id number] Dis Date: Status: ADM IN PHONE #: [phone] Exam Date: 03/06/2019946 FAX #: [phone] Reason: / EXAMS: CPT CODE: [id number] US GUIDANCE VASC ACCESS 09511 Fluoro Time: DAP (Gy m2): Air Kerma (mGy): EXAM: Insertion of a tunneled hemodialysis catheter with sonographic and fluoroscopic guidance and conscious sedation; INFORMATION: Chronic renal failure; TECHNIQUE AND FINDINGS: Conscious sedation start time: 0932 hours; Completion time: 47 hours; Under physician supervision 1 mg of Versed and 25 mcg of fentanyl were administered intravenously. The patient's heart rate, blood pressure and pulse oximetry were continuously monitored by a trained registered nurse. Physician vjej-is-nraw sedation time was 15 minutes. After obtaining informed consent, the patient was placed supine on the procedure table. Ultrasound of the neck showed a patent and compressible right internal jugular vein. Sonographic images were stored in PACS. Conscious sedation was initiated as described above. The patient's skin in the right neck region was prepped and draped in the usual sterile fashion. Xylocaine was administered and using sonographic guidance the right IJ was accessed with a micropuncture system, followed by insertion of an 035 guidewire. Sequential dilatation was performed under fluor oscopic guidance and a subcutaneous tunnel was created in the usual steril e fashion. A tunneled hemodialysis catheter was inserted and positioned w ith its tip at the SVC/right atrial junction. Good blood return was notic ed. The catheter was sutured to the skin and flushed with heparinized saline. No complications. IMPRESSION: Successful insertion of a tunneled hemodialysis catheter with sonographic and fluo roscopic guidance and conscious sedation. Fluoroscopy Time: 21 sec CAK : 2 mGy DAP : 730 mGy sq cm Elec tronically Signed by Lanette Moya on 019 at 0956 Reported and signed by: Lambert Moya M.D. PAGE 1 Signed Report (CONTINUED) Name: TORRES MAI [facility] : 1960 Age/S: 58 / M [address] Unit #: [id number] Loc: [place] [address] Phys: Slava Gustafson MD Acct: [id number] Dis Date: Status: ADM IN PHONE #: [phone] Exam Date: 03/06/2019 0947 FAX #: [phone] Reason: / EXAMS: CPT CODE: [id number] US GUIDANCE VASC ACCESS 27191 Fluoro Time: DAP (Gy m2): Air Kerma (mGy): <Continued> CC: Slava Gustafson MD Technologist: JAQUELINE LING FIELD NURSE Trnscb Date/Time: 03/10/2019 (955) [email or web address] Orig Print D/T: S: 03/10/2019 (59) PAGE 2 Signed Report [id number] 08:05:00* Test Item Value Reference Range Comments GLUBED (test code=GLUBED) 111 mg/dL 74-106 Performed by certified control center operator at [facility] BASIC METABOLIC [id number] 06:04:00* Test Item Value Reference Range Comments SODIUM (test code=NA) 136 mmol/L 136-145 POTASSIUM (test code=K) 3.9 mmol/L 3.5-5.1 CHLORIDE (test code=CL) 99.0 mmol/L 98-107 CARBON DIOXIDE (test code=CO2) 27.0 mmol/L 21-32 ANION GAP (test code=GAP) 13.9 10-20 GLUCOSE (test code=GLU) 91 mg/dL 74-106 BLOOD UREA NITROGEN (test code=BUN) 37 mg/dL 7-18 GLOMERULAR FILTRATION RATE (test code=GFR) 11 mL/min >=60 Estimated GFR by using Modified MDRD formula.Chronic kidney disease is defined as either kidney damageor GFR <60 mL/min/1.73 m2 for >3 months. CREATININE (test code=CREAT) 5.50 mg/dL 0.7-1.3 BUN/CREATININE RATIO (test code=BUN/CREA) 6.8 10-20 CALCIUM (test code=CA) 8.0 mg/dL 8.5-10.1 BASIC METABOLIC [id number] 05:54:00* Test Item Value Reference Range Comments SODIUM (test code=NA) 136 mmol/L 136-145 POTASSIUM (test code=K) 3.9 mmol/L 3.5-5.1 CHLORIDE (test code=CL) 99.0 mmol/L 98-107 CARBON DIOXIDE (test code=CO2) mmol/L 21-32 ANION GAP (test code=GAP) 10-20 GLUCOSE (test code=GLU) mg/dL 74-106 BLOOD UREA NITROGEN (test code=BUN) mg/dL 7-18 GLOMERULAR FILTRATION RATE (test code=GFR) mL/min >=60 CREATININE (test code=CREAT) mg/dL 0.7-1.3 BUN/CREATININE RATIO (test code=BUN/CREA) 10-20 CALCIUM (test code=CA) 8.0 mg/dL 8.5-10.1 [id number] 21:06:00* Test Item Value Reference Range Comments GLUBED (test code=GLUBED) 177 mg/dL 74-106 Performed by certified control center operator at [facility] [id number] 15:43:00* Test Item Value Reference Range Comments GLUBED (test code=GLUBED) 155 mg/dL 74-106 Performed by certified control center operator at [facility] [id number] 12:14:00* Test Item Value Reference Range Comments GLUBED (test code=GLUBED) 131 mg/dL 74-106 Performed by certified control center operator at [facility] [id number] 08:08:00* Test Item Value Reference Range Comments GLUBED (test code=GLUBED) 117 mg/dL 74-106 Performed by certified control center operator at [facility] BASIC METABOLIC [id number] 04:24:00* Test Item Value Reference Range Comments SODIUM (test code=NA) 139 mmol/L 136-145 POTASSIUM (test code=K) 3.8 mmol/L 3.5-5.1 CHLORIDE (test code=CL) 101.0 mmol/L 98-107 CARBON DIOXIDE (test code=CO2) 29.0 mmol/L 21-32 ANION GAP (test code=GAP) 12.8 10-20 GLUCOSE (test code=GLU) 154 mg/dL 74-106 BLOOD UREA NITROGEN (test code=BUN) 19 mg/dL 7-18 GLOMERULAR FILTRATION RATE (test code=GFR) 21 mL/min >=60 Estimated GFR by using Modified MDRD formula.Chronic kidney disease is defined as either kidney damageor GFR <60 mL/min/1.73 m2 for >3 months. CREATININE (test code=CREAT) 3.10 mg/dL 0.7-1.3 BUN/CREATININE RATIO (test code=BUN/CREA) 6.1 10-20 CALCIUM (test code=CA) 8.2 mg/dL 8.5-10.1 BASIC METABOLIC [id number] 04:19:00* Test Item Value Reference Range Comments SODIUM (test code=NA) 139 mmol/L 136-145 POTASSIUM (test code=K) 3.8 mmol/L 3.5-5.1 CHLORIDE (test code=CL) 101.0 mmol/L 98-107 CARBON DIOXIDE (test code=CO2) mmol/L 21-32 ANION GAP (test code=GAP) 10-20 GLUCOSE (test code=GLU) mg/dL 74-106 BLOOD UREA NITROGEN (test code=BUN) mg/dL 7-18 GLOMERULAR FILTRATION RATE (test code=GFR) mL/min >=60 CREATININE (test code=CREAT) mg/dL 0.7-1.3 BUN/CREATININE RATIO (test code=BUN/CREA) 10-20 CALCIUM (test code=CA) mg/dL 8.5-10.1 CBC W/AUTO [id number] 03:34:00* Test Item Value Reference Range Comments WHITE BLOOD CELL (test code=WBC) 10.0 K/mm3 4.5-12.5 RED BLOOD CELL (test code=RBC) 2.99 mill/mm3 4.0-5.8 HEMOGLOBIN (test code=HGB) 8.3 gram/dL 13.0-17.5 HEMATOCRIT (test code=HCT) 27.0 % 42.0-52.0 MEAN CELL VOLUME (test code=MCV) 90.3 fL 80-98 MEAN CELL HGB (test code=MCH) 27.8 picogram 27.0-33.0 MEAN CELL HGB CONCETRATION (test code=MCHC) 30.7 gram/dL 33.0-36.0 RED CELL DISTRIBUTION WIDTH (test code=RDW) 14.2 % 11.6-16.2 RED CELL DISTRIBUTION WIDTH SD (test code=RDW-SD) 45.5 fL 37.0-51.0 PLATELET COUNT (test code=PLT) 252 K/mm3 150-450 MEAN PLATELET VOLUME (test code=MPV) 11.0 fL 6.7-11.0 NEUTROPHIL % (test code=NT%) 79.1 % 39.0-69.0 IMMATURE GRANULOCYTE % (test code=IG%) 1.1 % 0.0-5.0 LYMPHOCYTE % (test code=LY%) 11.1 % 25.0-55.0 MONOCYTE % (test code=MO%) 8.3 % 0.0-10.0 EOSINOPHIL % (test code=EO%) 0.1 % 0.0-5.0 BASOPHIL % (test code=BA%) 0.3 % 0.0-1.0 NUCLEATED RBC % (test code=NRBC%) 0.0 % 0-0 NEUTROPHIL # (test code=NT#) 7.94 K/mm3 1.8-7.7 IMMATURE GRANULOCYTE # (test code=IG#) 0.11 x10 3/uL 0-0.03 LYMPHOCYTE # (test code=LY#) 1.11 K/mm3 1.0-5.0 MONOCYTE # (test code=MO#) 0.83 K/mm3 0-0.8 EOSINOPHIL # (test code=EO#) 0.01 K/mm3 0.0-0.5 BASOPHIL # (test code=BA#) 0.03 K/mm3 0.0-0.2 NUCLEATED RBC # (test code=NRBC#) 0.00 K/mm3 0.0-0.1 MANUAL DIFF REQUIRED (test code=MDIFF) NO [id number] 20:12:00* Test Item Value Reference Range Comments GLUBED (test code=GLUBED) 278 mg/dL 74-106 Performed by certified control center operator at [facility] [id number] 17:02:00* Test Item Value Reference Range Comments GLUBED (test code=GLUBED) 299 mg/dL 74-106 Performed by certified control center operator at [facility] [id number] 13:26:00* Test Item Value Reference Range Comments GLUBED (test code=GLUBED) 241 mg/dL 74-106 Performed by certified control center operator at [facility] [id number] 08:33:00* Test Item Value Reference Range Comments GLUBED (test code=GLUBED) 135 mg/dL 74-106 Performed by certified control center operator at [facility] HEPATITIS B CORE ANTIBODY,[id number] 07:13:00* Test Item Value Reference Range Comments HEPATITIS B CORE ANTIBODY,TOT (test code=HBCAB) Negative Negative Performed At: [facility] [address] [id number] Jiménez MD Ph:[phone] AB HEPATITIS B [id number] 04:07:00* Test Item Value Reference Range Comments AB HEPATITIS B SURFACE (test code=HBSAB) Non Reactive () Non Reactive: Inconsistent with immunity, less than 10 mIU/mL Reactive: Consistent with immunity, greater than 9.9 mIU/mL HEPATITIS B CORE ANTIBODY,[id number] 04:07:00* Test Item Value Reference Range Comments HEPATITIS B CORE ANTIBODY,IGM (test code=HBCMAB) NEGATIVE AB HEPATITIS B [id number] 04:07:00* Test Item Value Reference Range Comments AB HEPATITIS B SURFACE (test code=HBSAB) Non Reactive () Non Reactive: Inconsistent with immunity, less than 10 mIU/mL Reactive: Consistent with immunity, greater than 9.9 mIU/mL HEPATITIS B CORE ANTIBODY,[id number] 04:07:00* Test Item Value Reference Range Comments HEPATITIS B CORE ANTIBODY,IGM (test code=HBCMAB) Negative Negative Performed At: [facility] [address] [id number] Jiménez MD Ph:[phone] BASIC METABOLIC [id number] 03:12:00* Test Item Value Reference Range Comments SODIUM (test code=NA) 138 mmol/L 136-145 POTASSIUM (test code=K) 3.4 mmol/L 3.5-5.1 CHLORIDE (test code=CL) 98.0 mmol/L 98-107 CARBON DIOXIDE (test code=CO2) 30.0 mmol/L 21-32 ANION GAP (test code=GAP) 13.4 10-20 GLUCOSE (test code=GLU) 153 mg/dL 74-106 BLOOD UREA NITROGEN (test code=BUN) 29 mg/dL 7-18 GLOMERULAR FILTRATION RATE (test code=GFR) 19 mL/min >=60 Estimated GFR by using Modified MDRD formula.Chronic kidney disease is defined as either kidney damageor GFR <60 mL/min/1.73 m2 for >3 months. CREATININE (test code=CREAT) 3.30 mg/dL 0.7-1.3 BUN/CREATININE RATIO (test code=BUN/CREA) 8.9 10-20 CALCIUM (test code=CA) 8.5 mg/dL 8.5-10.1 CBC W/AUTO [id number] 03:03:00* Test Item Value Reference Range Comments WHITE BLOOD CELL (test code=WBC) 11.8 K/mm3 4.5-12.5 RED BLOOD CELL (test code=RBC) 2.92 mill/mm3 4.0-5.8 HEMOGLOBIN (test code=HGB) 8.3 gram/dL 13.0-17.5 HEMATOCRIT (test code=HCT) 26.2 % 42.0-52.0 MEAN CELL VOLUME (test code=MCV) 89.7 fL 80-98 MEAN CELL HGB (test code=MCH) 28.4 picogram 27.0-33.0 MEAN CELL HGB CONCETRATION (test code=MCHC) 31.7 gram/dL 33.0-36.0 RED CELL DISTRIBUTION WIDTH (test code=RDW) 14.4 % 11.6-16.2 RED CELL DISTRIBUTION WIDTH SD (test code=RDW-SD) 45.6 fL 37.0-51.0 PLATELET COUNT (test code=PLT) 268 K/mm3 150-450 MEAN PLATELET VOLUME (test code=MPV) 11.4 fL 6.7-11.0 NEUTROPHIL % (test code=NT%) 81.0 % 39.0-69.0 IMMATURE GRANULOCYTE % (test code=IG%) 0.8 % 0.0-5.0 LYMPHOCYTE % (test code=LY%) 10.3 % 25.0-55.0 MONOCYTE % (test code=MO%) 7.6 % 0.0-10.0 EOSINOPHIL % (test code=EO%) 0.0 % 0.0-5.0 BASOPHIL % (test code=BA%) 0.3 % 0.0-1.0 NUCLEATED RBC % (test code=NRBC%) 0.0 % 0-0 NEUTROPHIL # (test code=NT#) 9.53 K/mm3 1.8-7.7 IMMATURE GRANULOCYTE # (test code=IG#) 0.10 x10 3/uL 0-0.03 LYMPHOCYTE # (test code=LY#) 1.21 K/mm3 1.0-5.0 MONOCYTE # (test code=MO#) 0.90 K/mm3 0-0.8 EOSINOPHIL # (test code=EO#) 0.00 K/mm3 0.0-0.5 BASOPHIL # (test code=BA#) 0.03 K/mm3 0.0-0.2 NUCLEATED RBC # (test code=NRBC#) 0.00 K/mm3 0.0-0.1 MANUAL DIFF REQUIRED (test code=MDIFF) NO [id number] 20:32:00* Test Item Value Reference Range Comments GLUBED (test code=GLUBED) 228 mg/dL 74-106 Performed by certified control center operator at [facility] [id number] 16:07:00* Test Item Value Reference Range Comments GLUBED (test code=GLUBED) 238 mg/dL 74-106 Performed by certified control center operator at [facility] [id number] 12:14:00* Test Item Value Reference Range Comments GLUBED (test code=GLUBED) 228 mg/dL 74-106 Performed by certified control center operator at [facility] [id number] 08:16:00* Test Item Value Reference Range Comments GLUBED (test code=GLUBED) 224 mg/dL 74-106 Performed by certified control center operator at [facility] BASIC METABOLIC [id number] 03:20:00* Test Item Value Reference Range Comments SODIUM (test code=NA) 140 mmol/L 136-145 POTASSIUM (test code=K) 3.9 mmol/L 3.5-5.1 CHLORIDE (test code=CL) 102.0 mmol/L 98-107 CARBON DIOXIDE (test code=CO2) 26.0 mmol/L 21-32 ANION GAP (test code=GAP) 15.9 10-20 GLUCOSE (test code=GLU) 210 mg/dL 74-106 BLOOD UREA NITROGEN (test code=BUN) 52 mg/dL 7-18 RESULT VERIFIED BY REPEAT ANALYSIS GLOMERULAR FILTRATION RATE (test code=GFR) 16 mL/min >=60 Estimated GFR by using Modified MDRD formula.Chronic kidney disease is defined as either kidney damageor GFR <60 mL/min/1.73 m2 for >3 months. CREATININE (test code=CREAT) 3.80 mg/dL 0.7-1.3 BUN/CREATININE RATIO (test code=BUN/CREA) 13.7 10-20 CALCIUM (test code=CA) 8.3 mg/dL 8.5-10.1 BASIC METABOLIC [id number] 03:06:00* Test Item Value Reference Range Comments SODIUM (test code=NA) 140 mmol/L 136-145 POTASSIUM (test code=K) 3.9 mmol/L 3.5-5.1 CHLORIDE (test code=CL) 102.0 mmol/L 98-107 CARBON DIOXIDE (test code=CO2) mmol/L 21-32 ANION GAP (test code=GAP) 10-20 GLUCOSE (test code=GLU) mg/dL 74-106 BLOOD UREA NITROGEN (test code=BUN) mg/dL 7-18 GLOMERULAR FILTRATION RATE (test code=GFR) mL/min >=60 CREATININE (test code=CREAT) mg/dL 0.7-1.3 BUN/CREATININE RATIO (test code=BUN/CREA) 10-20 CALCIUM (test code=CA) mg/dL 8.5-10.1 CBC W/AUTO [id number] 01:59:00* Test Item Value Reference Range Comments WHITE BLOOD CELL (test code=WBC) 12.2 K/mm3 4.5-12.5 RED BLOOD CELL (test code=RBC) 3.08 mill/mm3 4.0-5.8 HEMOGLOBIN (test code=HGB) 8.7 gram/dL 13.0-17.5 HEMATOCRIT (test code=HCT) 27.5 % 42.0-52.0 MEAN CELL VOLUME (test code=MCV) 89.3 fL 80-98 MEAN CELL HGB (test code=MCH) 28.2 picogram 27.0-33.0 MEAN CELL HGB CONCETRATION (test code=MCHC) 31.6 gram/dL 33.0-36.0 RED CELL DISTRIBUTION WIDTH (test code=RDW) 14.4 % 11.6-16.2 RED CELL DISTRIBUTION WIDTH SD (test code=RDW-SD) 45.7 fL 37.0-51.0 PLATELET COUNT (test code=PLT) 271 K/mm3 150-450 MEAN PLATELET VOLUME (test code=MPV) 11.1 fL 6.7-11.0 NEUTROPHIL % (test code=NT%) 84.6 % 39.0-69.0 IMMATURE GRANULOCYTE % (test code=IG%) 1.1 % 0.0-5.0 LYMPHOCYTE % (test code=LY%) 6.9 % 25.0-55.0 MONOCYTE % (test code=MO%) 7.2 % 0.0-10.0 EOSINOPHIL % (test code=EO%) 0.0 % 0.0-5.0 BASOPHIL % (test code=BA%) 0.2 % 0.0-1.0 NUCLEATED RBC % (test code=NRBC%) 0.0 % 0-0 NEUTROPHIL # (test code=NT#) 10.28 K/mm3 1.8-7.7 IMMATURE GRANULOCYTE # (test code=IG#) 0.13 x10 3/uL 0-0.03 LYMPHOCYTE # (test code=LY#) 0.84 K/mm3 1.0-5.0 MONOCYTE # (test code=MO#) 0.87 K/mm3 0-0.8 EOSINOPHIL # (test code=EO#) 0.00 K/mm3 0.0-0.5 BASOPHIL # (test code=BA#) 0.03 K/mm3 0.0-0.2 NUCLEATED RBC # (test code=NRBC#) 0.00 K/mm3 0.0-0.1 MANUAL DIFF REQUIRED (test code=MDIFF) NO [id number] 20:24:00* Test Item Value Reference Range Comments GLUBED (test code=GLUBED) 254 mg/dL 74-106 Performed by certified control center operator at [facility] [id number] 15:38:00* Test Item Value Reference Range Comments GLUBED (test code=GLUBED) 181 mg/dL 74-106 Performed by certified control center operator at [facility] BASIC METABOLIC [id number] 11:10:00* Test Item Value Reference Range Comments SODIUM (test code=NA) 138 mmol/L 136-145 POTASSIUM (test code=K) 3.9 mmol/L 3.5-5.1 CHLORIDE (test code=CL) 100.0 mmol/L 98-107 CARBON DIOXIDE (test code=CO2) 28.0 mmol/L 21-32 ANION GAP (test code=GAP) 13.9 10-20 GLUCOSE (test code=GLU) 124 mg/dL 74-106 BLOOD UREA NITROGEN (test code=BUN) 73 mg/dL 7-18 GLOMERULAR FILTRATION RATE (test code=GFR) 12 mL/min >=60 Estimated GFR by using Modified MDRD formula.Chronic kidney disease is defined as either kidney damageor GFR <60 mL/min/1.73 m2 for >3 months. CREATININE (test code=CREAT) 4.90 mg/dL 0.7-1.3 BUN/CREATININE RATIO (test code=BUN/CREA) 15.0 10-20 CALCIUM (test code=CA) 8.3 mg/dL 8.5-10.1 BASIC METABOLIC [id number] 11:08:00* Test Item Value Reference Range Comments SODIUM (test code=NA) 138 mmol/L 136-145 POTASSIUM (test code=K) 3.9 mmol/L 3.5-5.1 CHLORIDE (test code=CL) 100.0 mmol/L 98-107 CARBON DIOXIDE (test code=CO2) 28.0 mmol/L 21-32 ANION GAP (test code=GAP) 13.9 10-20 GLUCOSE (test code=GLU) mg/dL 74-106 BLOOD UREA NITROGEN (test code=BUN) 73 mg/dL 7-18 GLOMERULAR FILTRATION RATE (test code=GFR) mL/min >=60 CREATININE (test code=CREAT) mg/dL 0.7-1.3 BUN/CREATININE RATIO (test code=BUN/CREA) 10-20 CALCIUM (test code=CA) 8.3 mg/dL 8.5-10.1 - XR CHEST 1 [id number] 10:23:00 FAX: Slava Gustafson MD [phone] [place]: B St: [facility] FAX: Jd Montalvo MD [phone] Name: TORRES MAI [facility] : 1960 Age/S: 58/M [address] [facility] Unit #: [id number] Loc: V.4007 [place] [address] Phys: Jd Womack MD Acct: [id number] Dis Date: Status: ADM IN PHONE #: [phone] Exam Date: 03/06/2019 1005 FAX #: [phone] Reason: hypoxemia EXAMS: CPT CODE: [id number] XR CHEST 1 V 06031 REASON FOR EXAM: hypoxemia Exam Order Date: 03/06/2019 5:00 AM Ordering M.D.: Jd Womack MD PROCEDURE: - XR CHEST 1 V COMPARISON: Frontal chest x-ray March 02, 2019 FINDINGS: A right IJ dialysis catheter has been placed into the distal SVC. Lung volumes are slightly diminished. This causes crowding of the bronchovascular structures. There is also mild subsegmental atelectasis in the lung bases. The upper lungs are clear. The cardiac mediastinal silhouette is prominent but stable in size. This may be slightly exaggerated due to diminished lung volumes. Musculoskeletal structures are within normal limits. The v isualized upper abdomen is within normal limits. IMPRESS ION: Right IJ dialysis catheter terminates in the distal SVC. Lo w lung volumes with subsegmental atelectasis in the lung bases. Upper jun ngs are clear. Cardiomegaly is unchanged from prior exam. El ectronically Signed by Ken Marie MD on 03/06/2019 at 1023 Reported and signed by: Ken Marie MD CC: Slava Gustafson MD; Jd Reyna MD Technologist: STU HENDRICKSON RT(R) Trnscrd Date/Time/By: 03/06/2019 (6483) : By: [id number] Orig Print D/T: S: 03/06/2019 (4180) PAGE 1 Signed Report [id number] 08:30:00* Test Item Value Reference Range Comments GLUBED (test code=GLUBED) 129 mg/dL 74-106 Performed by certified control center operator at [facility] PROTHROMBIN [id number] 07:45:00* Test Item Value Reference Range Comments PROTHROMBIN TIME PATIENT (test code=PTP) 15.3 seconds 9.0-14.0 INTERNATIONAL NORMAL RATIO (test code=INR) 1.3 0.8-1.2 The therapeutic range for oral anticoagulant therapy formost indications is an international normalized ratio (INR)of between 2.0 and 3.0. The recommended therapeutic INRrange for various clinical situations is listed below: Clinical Situation INR range Pulmonary e mbolism treatment (2.0-3.0)Venous thrombosis treatmentVenous thrombosis prophylaxis (high risk surgery)Prevention of systemic embolism from: Acute myocardial infarction Valvular heart disease Atrial fibrillation Mechanical prosthetic heart valves (2.5-3.5) IS PATIENT ON ANTICOAGULANTS? YLIST ANTICOAGULANTS HEPARINCOMMENTS TO PHLEBO TOMIST: NEED FOR SURGERY 03/06/19THROMBOPLASTIN TIME [id number] 07:45:00 * Test Item Value Reference Range Comments THROMBOPLASTIN TIME PARTIAL (test code=PTT) 33.7 seconds 25.0-36.5 IS PATIENT ON ANTICOAGULANTS? YLIST ANTICOAGULANTS HEPARINCOMMENTS TO PHLEBO TOMIST: NEED FOR SURGERY 03/06/19CBC W/AUTO [id number] 06:42:00* Test Item Value Reference Range Comments WHITE BLOOD CELL (test code=WBC) 12.1 K/mm3 4.5-12.5 RED BLOOD CELL (test code=RBC) 3.09 mill/mm3 4.0-5.8 HEMOGLOBIN (test code=HGB) 8.6 gram/dL 13.0-17.5 HEMATOCRIT (test code=HCT) 27.6 % 42.0-52.0 MEAN CELL VOLUME (test code=MCV) 89.3 fL 80-98 MEAN CELL HGB (test code=MCH) 27.8 picogram 27.0-33.0 MEAN CELL HGB CONCETRATION (test code=MCHC) 31.2 gram/dL 33.0-36.0 RED CELL DISTRIBUTION WIDTH (test code=RDW) 14.6 % 11.6-16.2 RED CELL DISTRIBUTION WIDTH SD (test code=RDW-SD) 46.8 fL 37.0-51.0 PLATELET COUNT (test code=PLT) 262 K/mm3 150-450 MEAN PLATELET VOLUME (test code=MPV) 11.0 fL 6.7-11.0 NEUTROPHIL % (test code=NT%) 84.2 % 39.0-69.0 IMMATURE GRANULOCYTE % (test code=IG%) 1.6 % 0.0-5.0 LYMPHOCYTE % (test code=LY%) 7.6 % 25.0-55.0 MONOCYTE % (test code=MO%) 6.3 % 0.0-10.0 EOSINOPHIL % (test code=EO%) 0.0 % 0.0-5.0 BASOPHIL % (test code=BA%) 0.3 % 0.0-1.0 NUCLEATED RBC % (test code=NRBC%) 0.0 % 0-0 NEUTROPHIL # (test code=NT#) 10.23 K/mm3 1.8-7.7 IMMATURE GRANULOCYTE # (test code=IG#) 0.19 x10 3/uL 0-0.03 LYMPHOCYTE # (test code=LY#) 0.92 K/mm3 1.0-5.0 MONOCYTE # (test code=MO#) 0.76 K/mm3 0-0.8 EOSINOPHIL # (test code=EO#) 0.00 K/mm3 0.0-0.5 BASOPHIL # (test code=BA#) 0.04 K/mm3 0.0-0.2 NUCLEATED RBC # (test code=NRBC#) 0.00 K/mm3 0.0-0.1 CBC W/AUTO [id number] 02:38:00* Test Item Value Reference Range Comments WHITE BLOOD CELL (test code=WBC) 13.0 K/mm3 4.5-12.5 RED BLOOD CELL (test code=RBC) 3.01 mill/mm3 4.0-5.8 HEMOGLOBIN (test code=HGB) 8.6 gram/dL 13.0-17.5 HEMATOCRIT (test code=HCT) 26.5 % 42.0-52.0 MEAN CELL VOLUME (test code=MCV) 88.0 fL 80-98 MEAN CELL HGB (test code=MCH) 28.6 picogram 27.0-33.0 MEAN CELL HGB CONCETRATION (test code=MCHC) 32.5 gram/dL 33.0-36.0 RED CELL DISTRIBUTION WIDTH (test code=RDW) 14.5 % 11.6-16.2 RED CELL DISTRIBUTION WIDTH SD (test code=RDW-SD) 46.2 fL 37.0-51.0 PLATELET COUNT (test code=PLT) 283 K/mm3 150-450 MEAN PLATELET VOLUME (test code=MPV) 11.5 fL 6.7-11.0 NEUTROPHIL % (test code=NT%) 85.9 % 39.0-69.0 IMMATURE GRANULOCYTE % (test code=IG%) 1.2 % 0.0-5.0 LYMPHOCYTE % (test code=LY%) 7.1 % 25.0-55.0 MONOCYTE % (test code=MO%) 5.5 % 0.0-10.0 EOSINOPHIL % (test code=EO%) 0.0 % 0.0-5.0 BASOPHIL % (test code=BA%) 0.3 % 0.0-1.0 NUCLEATED RBC % (test code=NRBC%) 0.0 % 0-0 NEUTROPHIL # (test code=NT#) 11.14 K/mm3 1.8-7.7 IMMATURE GRANULOCYTE # (test code=IG#) 0.16 x10 3/uL 0-0.03 LYMPHOCYTE # (test code=LY#) 0.92 K/mm3 1.0-5.0 MONOCYTE # (test code=MO#) 0.71 K/mm3 0-0.8 EOSINOPHIL # (test code=EO#) 0.00 K/mm3 0.0-0.5 BASOPHIL # (test code=BA#) 0.04 K/mm3 0.0-0.2 NUCLEATED RBC # (test code=NRBC#) 0.00 K/mm3 0.0-0.1 BASIC METABOLIC [id number] 02:36:00* Test Item Value Reference Range Comments SODIUM (test code=NA) 140 mmol/L 136-145 POTASSIUM (test code=K) 3.9 mmol/L 3.5-5.1 CHLORIDE (test code=CL) 100.0 mmol/L 98-107 CARBON DIOXIDE (test code=CO2) 26.0 mmol/L 21-32 ANION GAP (test code=GAP) 17.9 10-20 GLUCOSE (test code=GLU) 147 mg/dL 74-106 BLOOD UREA NITROGEN (test code=BUN) 76 mg/dL 7-18 GLOMERULAR FILTRATION RATE (test code=GFR) 12 mL/min >=60 Estimated GFR by using Modified MDRD formula.Chronic kidney disease is defined as either kidney damageor GFR <60 mL/min/1.73 m2 for >3 months. CREATININE (test code=CREAT) 5.00 mg/dL 0.7-1.3 BUN/CREATININE RATIO (test code=BUN/CREA) 15.2 10-20 CALCIUM (test code=CA) 8.5 mg/dL 8.5-10.1 [id number] 02:36:00* Test Item Value Reference Range Comments MAGNESIUM (test code=MAG) 2.3 mg/dL 1.8-2.4 [id number] 20:37:00* Test Item Value Reference Range Comments GLUBED (test code=GLUBED) 142 mg/dL 74-106 Performed by certified control center operator at [facility] [id number] 17:48:00* Test Item Value Reference Range Comments GLUBED (test code=GLUBED) 124 mg/dL 74-106 Performed by certified control center operator at [facility] [id number] 12:40:00* Test Item Value Reference Range Comments GLUBED (test code=GLUBED) 97 mg/dL 74-106 [facility] AG HEPAT B [id number] 11:27:00* Test Item Value Reference Range Comments AG HEPAT B SURF (test code=HBSAG) Nonreactive Index Nonreactive URIC [id number] 10:57:00* Test Item Value Reference Range Comments URIC ACID (test code=URIC) 4.8 mg/dL 2.6-7.2 [id number] 08:40:00* Test Item Value Reference Range Comments GLUBED (test code=GLUBED) 107 mg/dL 74-106 [facility] HGB [id number] 05:36:00* Test Item Value Reference Range Comments HEMOGLOBIN (test code=HGB) 8.6 gram/dL 13.0-17.5 HEMATOCRIT (test code=HCT) 27.5 % 42.0-52.0 BASIC METABOLIC [id number] 05:20:00* Test Item Value Reference Range Comments SODIUM (test code=NA) 137 mmol/L 136-145 POTASSIUM (test code=K) 3.6 mmol/L 3.5-5.1 CHLORIDE (test code=CL) 99.0 mmol/L 98-107 CARBON DIOXIDE (test code=CO2) 29.0 mmol/L 21-32 ANION GAP (test code=GAP) 12.6 10-20 GLUCOSE (test code=GLU) 127 mg/dL 74-106 BLOOD UREA NITROGEN (test code=BUN) 74 mg/dL 7-18 GLOMERULAR FILTRATION RATE (test code=GFR) 12 mL/min >=60 Estimated GFR by using Modified MDRD formula.Chronic kidney disease is defined as either kidney damageor GFR <60 mL/min/1.73 m2 for >3 months. CREATININE (test code=CREAT) 5.00 mg/dL 0.7-1.3 BUN/CREATININE RATIO (test code=BUN/CREA) 14.9 10-20 CALCIUM (test code=CA) 8.8 mg/dL 8.5-10.1 RENAL FUNCTION [id number] 05:20:00* Test Item Value Reference Range Comments ALBUMIN (test code=ALB) 1.7 g/dL 3.4-5.0 PHOSPHORUS (test code=PHOS) 4.2 mg/dL 2.5-4.9 [id number] 20:46:00* Test Item Value Reference Range Comments GLUBED (test code=GLUBED) 141 mg/dL 74-106 Performed by certified control center operator at [facility] [id number] 20:46:00* Test Item Value Reference Range Comments GLUBED (test code=GLUBED) 170 mg/dL 74-106 Performed by certified control center operator at [facility] [id number] 20:37:00* Test Item Value Reference Range Comments GLUBED (test code=GLUBED) 231 mg/dL 74-106 Performed by certified control center operator at [facility] [id number] 08:23:00* Test Item Value Reference Range Comments GLUBED (test code=GLUBED) 136 mg/dL 74-106 Performed by certified control center operator at [facility] BASIC METABOLIC [id number] 06:34:00* Test Item Value Reference Range Comments SODIUM (test code=NA) 136 mmol/L 136-145 POTASSIUM (test code=K) 3.8 mmol/L 3.5-5.1 CHLORIDE (test code=CL) 98.0 mmol/L 98-107 CARBON DIOXIDE (test code=CO2) 28.0 mmol/L 21-32 ANION GAP (test code=GAP) 13.8 10-20 GLUCOSE (test code=GLU) 135 mg/dL 74-106 BLOOD UREA NITROGEN (test code=BUN) 74 mg/dL 7-18 GLOMERULAR FILTRATION RATE (test code=GFR) 13 mL/min >=60 Estimated GFR by using Modified MDRD formula.Chronic kidney disease is defined as either kidney damageor GFR <60 mL/min/1.73 m2 for >3 months. CREATININE (test code=CREAT) 4.60 mg/dL 0.7-1.3 BUN/CREATININE RATIO (test code=BUN/CREA) 15.9 10-20 CALCIUM (test code=CA) 8.9 mg/dL 8.5-10.1 CBC W/AUTO [id number] 06:02:00* Test Item Value Reference Range Comments WHITE BLOOD CELL (test code=WBC) 16.7 K/mm3 4.5-12.5 RED BLOOD CELL (test code=RBC) 2.55 mill/mm3 4.0-5.8 HEMOGLOBIN (test code=HGB) 7.1 gram/dL 13.0-17.5 HEMATOCRIT (test code=HCT) 22.7 % 42.0-52.0 MEAN CELL VOLUME (test code=MCV) 89.0 fL 80-98 MEAN CELL HGB (test code=MCH) 27.8 picogram 27.0-33.0 MEAN CELL HGB CONCETRATION (test code=MCHC) 31.3 gram/dL 33.0-36.0 RED CELL DISTRIBUTION WIDTH (test code=RDW) 13.4 % 11.6-16.2 RED CELL DISTRIBUTION WIDTH SD (test code=RDW-SD) 43.6 fL 37.0-51.0 PLATELET COUNT (test code=PLT) 317 K/mm3 150-450 RESULT VERIFIED BY REPEAT ANALYSIS MEAN PLATELET VOLUME (test code=MPV) 11.9 fL 6.7-11.0 NEUTROPHIL % (test code=NT%) 87.5 % 39.0-69.0 IMMATURE GRANULOCYTE % (test code=IG%) 1.4 % 0.0-5.0 LYMPHOCYTE % (test code=LY%) 5.5 % 25.0-55.0 MONOCYTE % (test code=MO%) 5.3 % 0.0-10.0 EOSINOPHIL % (test code=EO%) 0.0 % 0.0-5.0 BASOPHIL % (test code=BA%) 0.3 % 0.0-1.0 NUCLEATED RBC % (test code=NRBC%) 0.0 % 0-0 NEUTROPHIL # (test code=NT#) 14.57 K/mm3 1.8-7.7 IMMATURE GRANULOCYTE # (test code=IG#) 0.24 x10 3/uL 0-0.03 LYMPHOCYTE # (test code=LY#) 0.92 K/mm3 1.0-5.0 MONOCYTE # (test code=MO#) 0.89 K/mm3 0-0.8 EOSINOPHIL # (test code=EO#) 0.00 K/mm3 0.0-0.5 BASOPHIL # (test code=BA#) 0.05 K/mm3 0.0-0.2 NUCLEATED RBC # (test code=NRBC#) 0.00 K/mm3 0.0-0.1 [id number] 20:59:00* Test Item Value Reference Range Comments GLUBED (test code=GLUBED) 121 mg/dL 74-106 Performed by certified control center operator at [facility] [id number] 16:04:00* Test Item Value Reference Range Comments GLUBED (test code=GLUBED) 116 mg/dL 74-106 Performed by certified control center operator at [facility] [id number] 11:19:00* Test Item Value Reference Range Comments GLUBED (test code=GLUBED) 213 mg/dL 74-106 Performed by certified control center operator at [facility] CBC W/AUTO [id number] 08:57:00* Test Item Value Reference Range Comments WHITE BLOOD CELL (test code=WBC) 17.1 K/mm3 4.5-12.5 RED BLOOD CELL (test code=RBC) 2.63 mill/mm3 4.0-5.8 HEMOGLOBIN (test code=HGB) 7.3 gram/dL 13.0-17.5 HEMATOCRIT (test code=HCT) 23.4 % 42.0-52.0 MEAN CELL VOLUME (test code=MCV) 89.0 fL 80-98 MEAN CELL HGB (test code=MCH) 27.8 picogram 27.0-33.0 MEAN CELL HGB CONCETRATION (test code=MCHC) 31.2 gram/dL 33.0-36.0 RED CELL DISTRIBUTION WIDTH (test code=RDW) 13.4 % 11.6-16.2 RED CELL DISTRIBUTION WIDTH SD (test code=RDW-SD) 43.4 fL 37.0-51.0 PLATELET COUNT (test code=PLT) 260 K/mm3 150-450 MEAN PLATELET VOLUME (test code=MPV) 11.6 fL 6.7-11.0 NEUTROPHIL % (test code=NT%) 87.8 % 39.0-69.0 IMMATURE GRANULOCYTE % (test code=IG%) 1.4 % 0.0-5.0 LYMPHOCYTE % (test code=LY%) 4.7 % 25.0-55.0 MONOCYTE % (test code=MO%) 5.9 % 0.0-10.0 EOSINOPHIL % (test code=EO%) 0.0 % 0.0-5.0 BASOPHIL % (test code=BA%) 0.2 % 0.0-1.0 NUCLEATED RBC % (test code=NRBC%) 0.0 % 0-0 NEUTROPHIL # (test code=NT#) 15.03 K/mm3 1.8-7.7 IMMATURE GRANULOCYTE # (test code=IG#) 0.24 x10 3/uL 0-0.03 LYMPHOCYTE # (test code=LY#) 0.81 K/mm3 1.0-5.0 MONOCYTE # (test code=MO#) 1.01 K/mm3 0-0.8 EOSINOPHIL # (test code=EO#) 0.00 K/mm3 0.0-0.5 BASOPHIL # (test code=BA#) 0.04 K/mm3 0.0-0.2 NUCLEATED RBC # (test code=NRBC#) 0.00 K/mm3 0.0-0.1 MANUAL DIFF REQUIRED (test code=MDIFF) NO BASIC METABOLIC [id number] 08:08:00* Test Item Value Reference Range Comments SODIUM (test code=NA) 135 mmol/L 136-145 POTASSIUM (test code=K) 3.9 mmol/L 3.5-5.1 CHLORIDE (test code=CL) 98.0 mmol/L 98-107 CARBON DIOXIDE (test code=CO2) 27.0 mmol/L 21-32 ANION GAP (test code=GAP) 13.9 10-20 GLUCOSE (test code=GLU) 210 mg/dL 74-106 BLOOD UREA NITROGEN (test code=BUN) 71 mg/dL 7-18 GLOMERULAR FILTRATION RATE (test code=GFR) 13 mL/min >=60 Estimated GFR by using Modified MDRD formula.Chronic kidney disease is defined as either kidney damageor GFR <60 mL/min/1.73 m2 for >3 months. CREATININE (test code=CREAT) 4.60 mg/dL 0.7-1.3 BUN/CREATININE RATIO (test code=BUN/CREA) 15.4 10-20 CALCIUM (test code=CA) 8.5 mg/dL 8.5-10.1 [id number] 08:04:00* Test Item Value Reference Range Comments GLUBED (test code=GLUBED) 207 mg/dL 74-106 Performed by certified control center operator at [facility] [id number] 20:50:00* Test Item Value Reference Range Comments GLUBED (test code=GLUBED) 117 mg/dL 74-106 Performed by certified control center operator at [facility] [id number] 17:33:00* Test Item Value Reference Range Comments GLUBED (test code=GLUBED) 118 mg/dL 74-106 Performed by certified control center operator at [facility] [id number] 11:53:00* Test Item Value Reference Range Comments GLUBED (test code=GLUBED) 135 mg/dL 74-106 Performed by certified control center operator at [facility] [id number] 11:48:00* Test Item Value Reference Range Comments GLUBED (test code=GLUBED) 155 mg/dL 74-106 Performed by certified control center operator at [facility] - XR CHEST 1 [id number] 08:27:00 FAX: Slava Gustafson MD [phone] [place]: St: ADM FAX: Jose Francisco Aguilar MD [phone] Name: TORRES MAI [facility] : 1960 Age/S: 58/M [address] [facility] Unit #: [id number] Loc: V.[address] [place] [address] Phys: Jose Francisco Cao MD Acct: [id number] Dis Date: Status: ADM IN PHONE #: [phone] Exam Date: 03/02/2019 0751 FAX #: [phone] Reason: COMPLAINTS OF sob EXAMS: CPT CODE: [id number] XR CHEST 1 V [id number] REASON FOR EXAM: COMPLAINTS OF sob EXAM ORDER DATE: 03/02/2019 5:00 AM Ordering MYvonne: Jose Francisco Cao MD PROCEDURE: - XR CHEST 1 V COMPARISON: 02/26/2019 FINDINGS: Portable AP frontal view of the chest obtained at 7:51 AM shows diffuse airspace opacities. The heart size is within normal limits. Pulmonary vasculatures are minimally congested. IMPRESSION: Congestive heart failure with small bilateral pleural effusions at 0844 Reported and signed by: Bala Jimenez M.D. CC: Slava Gustafson MD; Jose Francisco Cao M.D. Technologist: Lora Pierre) Trnscrd Date/Time/By: 03/02/2019 (0856) : By: Bernie Orig Print D/T: S: 03/02/2019 (6600) PAGE 1 Signed Report CBC W/AUTO [id number] 06:13:00* Test Item Value Reference Range Comments WHITE BLOOD CELL (test code=WBC) 15.1 K/mm3 4.5-12.5 RED BLOOD CELL (test code=RBC) 2.73 mill/mm3 4.0-5.8 HEMOGLOBIN (test code=HGB) 7.6 gram/dL 13.0-17.5 HEMATOCRIT (test code=HCT) 23.6 % 42.0-52.0 MEAN CELL VOLUME (test code=MCV) 86.4 fL 80-98 MEAN CELL HGB (test code=MCH) 27.8 picogram 27.0-33.0 MEAN CELL HGB CONCETRATION (test code=MCHC) 32.2 gram/dL 33.0-36.0 RED CELL DISTRIBUTION WIDTH (test code=RDW) 13.2 % 11.6-16.2 RED CELL DISTRIBUTION WIDTH SD (test code=RDW-SD) 41.6 fL 37.0-51.0 PLATELET COUNT (test code=PLT) 279 K/mm3 150-450 MEAN PLATELET VOLUME (test code=MPV) 11.4 fL 6.7-11.0 NEUTROPHIL % (test code=NT%) 86.6 % 39.0-69.0 IMMATURE GRANULOCYTE % (test code=IG%) 1.3 % 0.0-5.0 LYMPHOCYTE % (test code=LY%) 5.6 % 25.0-55.0 MONOCYTE % (test code=MO%) 6.2 % 0.0-10.0 EOSINOPHIL % (test code=EO%) 0.0 % 0.0-5.0 BASOPHIL % (test code=BA%) 0.3 % 0.0-1.0 NUCLEATED RBC % (test code=NRBC%) 0.0 % 0-0 NEUTROPHIL # (test code=NT#) 13.07 K/mm3 1.8-7.7 IMMATURE GRANULOCYTE # (test code=IG#) 0.19 x10 3/uL 0-0.03 LYMPHOCYTE # (test code=LY#) 0.85 K/mm3 1.0-5.0 MONOCYTE # (test code=MO#) 0.94 K/mm3 0-0.8 EOSINOPHIL # (test code=EO#) 0.00 K/mm3 0.0-0.5 BASOPHIL # (test code=BA#) 0.04 K/mm3 0.0-0.2 NUCLEATED RBC # (test code=NRBC#) 0.00 K/mm3 0.0-0.1 MANUAL DIFF REQUIRED (test code=MDIFF) NO COMPREHENSIVE METABOLIC [id number] 06:00:00* Test Item Value Reference Range Comments SODIUM (test code=NA) 137 mmol/L 136-145 POTASSIUM (test code=K) 3.9 mmol/L 3.5-5.1 CHLORIDE (test code=CL) 99.0 mmol/L 98-107 CARBON DIOXIDE (test code=CO2) 28.0 mmol/L 21-32 ANION GAP (test code=GAP) 13.9 10-20 GLUCOSE (test code=GLU) 134 mg/dL 74-106 BLOOD UREA NITROGEN (test code=BUN) 77 mg/dL 7-18 GLOMERULAR FILTRATION RATE (test code=GFR) 13 mL/min >=60 Estimated GFR by using Modified MDRD formula.Chronic kidney disease is defined as either kidney damageor GFR <60 mL/min/1.73 m2 for >3 months. CREATININE (test code=CREAT) 4.70 mg/dL 0.7-1.3 BUN/CREATININE RATIO (test code=BUN/CREA) 16.5 10-20 TOTAL PROTEIN (test code=PROT) 6.2 gram/dL 6.4-8.2 ALBUMIN (test code=ALB) 1.7 g/dL 3.4-5.0 GLOBULIN (test code=GLOB) 4.5 gram/dL 2.7-4.2 ALBUMIN/GLOBULIN RATIO (test code=A/G) 0.4 0.75-1.50 CALCIUM (test code=CA) 7.6 mg/dL 8.5-10.1 BILIRUBIN TOTAL (test code=BILT) 0.40 mg/dL 0.0-1.0 SGOT/AST (test code=AST) 49 IUnit/L 15-37 SGPT/ALT (test code=ALT) 51 IUnit/L 12-78 ALKALINE PHOSPHATASE TOTAL (test code=ALKP) 109 IUnit/L 45-117 Note change in reference range due to change in reagent. COMPREHENSIVE METABOLIC [id number] 05:52:00* Test Item Value Reference Range Comments SODIUM (test code=NA) 137 mmol/L 136-145 POTASSIUM (test code=K) 3.9 mmol/L 3.5-5.1 CHLORIDE (test code=CL) 99.0 mmol/L 98-107 CARBON DIOXIDE (test code=CO2) mmol/L 21-32 ANION GAP (test code=GAP) 10-20 GLUCOSE (test code=GLU) mg/dL 74-106 BLOOD UREA NITROGEN (test code=BUN) mg/dL 7-18 GLOMERULAR FILTRATION RATE (test code=GFR) mL/min >=60 CREATININE (test code=CREAT) mg/dL 0.7-1.3 BUN/CREATININE RATIO (test code=BUN/CREA) 10-20 TOTAL PROTEIN (test code=PROT) gram/dL 6.4-8.2 ALBUMIN (test code=ALB) g/dL 3.4-5.0 GLOBULIN (test code=GLOB) gram/dL 2.7-4.2 ALBUMIN/GLOBULIN RATIO (test code=A/G) 0.75-1.50 CALCIUM (test code=CA) mg/dL 8.5-10.1 BILIRUBIN TOTAL (test code=BILT) mg/dL 0.0-1.0 SGOT/AST (test code=AST) IUnit/L 15-37 SGPT/ALT (test code=ALT) IUnit/L 12-78 ALKALINE PHOSPHATASE TOTAL (test code=ALKP) IUnit/L 45-117 [id number] 20:09:00* Test Item Value Reference Range Comments GLUBED (test code=GLUBED) 165 mg/dL 74-106 [facility] [id number] 19:06:00* Test Item Value Reference Range Comments GLUBED (test code=GLUBED) 161 mg/dL 74-106 Performed by certified control center operator at [facility] [id number] 19:06:00* Test Item Value Reference Range Comments GLUBED (test code=GLUBED) 267 mg/dL 74-106 Performed by certified control center operator at [facility] ARTERIAL BLOOD [id number] 14:54:00* Test Item Value Reference Range Comments ARTERIAL BLOOD GAS PH (test code=PHA) 7.48 7.35-7.45 ARTERIAL BLOOD GAS PCO2 (test code=PCO2A) 35.1 mm Hg 35-45 ARTERIAL BLOOD GAS PO2 (test code=PO2A) 105.1 mmHg 80-100 BICARBONATE TOTAL HCO3 (test code=HCO3) 25.7 mmol/L 23.0-27.0 BASE EXCESS (test code=KATH) 2.1 mmol/L -3.0-5.0 ABG O2 SATURATION (test code=SATA) 97.2 % 90.0-98.0 ABG TYPE (test code=TYPEA) Arterial FIO2 (test code=FIO2A) 50.0 ABG SITE (test code=SITEA) Rt BRACHIAL ARTERY MODIFIED ALLENS (test code=MODALL) Yes CHECK PERFORMED SODIUM (test code=NA/ABG) 129.0 mEq/L 135-148 POTASSIUM (test code=K/ABG) 3.6 mEq/L 3.5-4.5 CHLORIDE (test code=CL/ABG) 93 mEq/L 98-106 GLUCOSE (test code=GLU/ABG) 168 mg/dL 74-99 HEMATOCRIT (test code=HCT/ABG) 22 % 42-52 IONIZED CALCIUM (test code=CAIABG) 1.06 mmol/L 1.1-1.37 TOTAL HGB (test code=THB) 7.6 gram/dL 13.0-17.5 HGB O2 SAT (test code=HBOSAT) 96.1 % 94.00-98.00 CARBOXYHEMOGLOBIN (test code=HOHGBT) 0.3 %totalHg 0.5-1.5 Results called to and read back by Yousif 14:52 - 03/01/2019; by SAI QUACH METHEMOGLOBIN (test code=METHGB) 0.8 % 0.0-1.50 O2 CONTENT (test code=O2CT) 10.5 % vol 18.0-22.0 [id number] 07:57:00* Test Item Value Reference Range Comments GLUBED (test code=GLUBED) 135 mg/dL 74-106 Performed by certified control center operator at [facility] [id number] 20:28:00* Test Item Value Reference Range Comments GLUBED (test code=GLUBED) 191 mg/dL 74-106 Performed by certified control center operator at [facility] [id number] 15:58:00* Test Item Value Reference Range Comments GLUBED (test code=GLUBED) 161 mg/dL 74-106 Performed by certified control center operator at [facility] [id number] 11:26:00* Test Item Value Reference Range Comments GLUBED (test code=GLUBED) 235 mg/dL 74-106 Performed by certified control center operator at [facility] [id number] 10:41:00* Test Item Value Reference Range Comments PREALBUMIN (test code=PREALB) 10.0 mg/dL 16.0-40.0 [id number] 10:40:00* Test Item Value Reference Range Comments PREALBUMIN (test code=PREALB) 10.0 mg/dL 16.0-40.0 [id number] 07:57:00* Test Item Value Reference Range Comments GLUBED (test code=GLUBED) 313 mg/dL 74-106 [facility] COMPREHENSIVE METABOLIC [id number] 07:04:00* Test Item Value Reference Range Comments SODIUM (test code=NA) 128 mmol/L 136-145 POTASSIUM (test code=K) 4.1 mmol/L 3.5-5.1 CHLORIDE (test code=CL) 90.0 mmol/L 98-107 CARBON DIOXIDE (test code=CO2) 27.0 mmol/L 21-32 ANION GAP (test code=GAP) 15.1 10-20 GLUCOSE (test code=GLU) 289 mg/dL 74-106 BLOOD UREA NITROGEN (test code=BUN) 72 mg/dL 7-18 GLOMERULAR FILTRATION RATE (test code=GFR) 13 mL/min >=60 Estimated GFR by using Modified MDRD formula.Chronic kidney disease is defined as either kidney damageor GFR <60 mL/min/1.73 m2 for >3 months. CREATININE (test code=CREAT) 4.70 mg/dL 0.7-1.3 BUN/CREATININE RATIO (test code=BUN/CREA) 15.5 10-20 TOTAL PROTEIN (test code=PROT) 7.1 gram/dL 6.4-8.2 ALBUMIN (test code=ALB) 1.8 g/dL 3.4-5.0 GLOBULIN (test code=GLOB) 5.3 gram/dL 2.7-4.2 ALBUMIN/GLOBULIN RATIO (test code=A/G) 0.3 0.75-1.50 CALCIUM (test code=CA) 7.7 mg/dL 8.5-10.1 BILIRUBIN TOTAL (test code=BILT) 0.40 mg/dL 0.0-1.0 SGOT/AST (test code=AST) 34 IUnit/L 15-37 SGPT/ALT (test code=ALT) 51 IUnit/L 12-78 ALKALINE PHOSPHATASE TOTAL (test code=ALKP) 116 IUnit/L 45-117 Note change in reference range due to change in reagent. COMPREHENSIVE METABOLIC [id number] 06:56:00* Test Item Value Reference Range Comments SODIUM (test code=NA) 128 mmol/L 136-145 POTASSIUM (test code=K) 4.1 mmol/L 3.5-5.1 CHLORIDE (test code=CL) 90.0 mmol/L 98-107 CARBON DIOXIDE (test code=CO2) mmol/L 21-32 ANION GAP (test code=GAP) 10-20 GLUCOSE (test code=GLU) mg/dL 74-106 BLOOD UREA NITROGEN (test code=BUN) mg/dL 7-18 GLOMERULAR FILTRATION RATE (test code=GFR) mL/min >=60 CREATININE (test code=CREAT) mg/dL 0.7-1.3 BUN/CREATININE RATIO (test code=BUN/CREA) 10-20 TOTAL PROTEIN (test code=PROT) gram/dL 6.4-8.2 ALBUMIN (test code=ALB) g/dL 3.4-5.0 GLOBULIN (test code=GLOB) gram/dL 2.7-4.2 ALBUMIN/GLOBULIN RATIO (test code=A/G) 0.75-1.50 CALCIUM (test code=CA) mg/dL 8.5-10.1 BILIRUBIN TOTAL (test code=BILT) mg/dL 0.0-1.0 SGOT/AST (test code=AST) IUnit/L 15-37 SGPT/ALT (test code=ALT) IUnit/L 12-78 ALKALINE PHOSPHATASE TOTAL (test code=ALKP) IUnit/L 45-117 CBC W/AUTO [id number] 06:38:00* Test Item Value Reference Range Comments WHITE BLOOD CELL (test code=WBC) 15.2 K/mm3 4.5-12.5 RED BLOOD CELL (test code=RBC) 3.01 mill/mm3 4.0-5.8 HEMOGLOBIN (test code=HGB) 8.3 gram/dL 13.0-17.5 HEMATOCRIT (test code=HCT) 25.9 % 42.0-52.0 MEAN CELL VOLUME (test code=MCV) 86.0 fL 80-98 MEAN CELL HGB (test code=MCH) 27.6 picogram 27.0-33.0 MEAN CELL HGB CONCETRATION (test code=MCHC) 32.0 gram/dL 33.0-36.0 RED CELL DISTRIBUTION WIDTH (test code=RDW) 12.9 % 11.6-16.2 RED CELL DISTRIBUTION WIDTH SD (test code=RDW-SD) 40.4 fL 37.0-51.0 PLATELET COUNT (test code=PLT) 291 K/mm3 150-450 MEAN PLATELET VOLUME (test code=MPV) 11.6 fL 6.7-11.0 NEUTROPHIL % (test code=NT%) 87.0 % 39.0-69.0 IMMATURE GRANULOCYTE % (test code=IG%) 1.9 % 0.0-5.0 LYMPHOCYTE % (test code=LY%) 5.7 % 25.0-55.0 MONOCYTE % (test code=MO%) 5.2 % 0.0-10.0 EOSINOPHIL % (test code=EO%) 0.0 % 0.0-5.0 BASOPHIL % (test code=BA%) 0.2 % 0.0-1.0 NUCLEATED RBC % (test code=NRBC%) 0.0 % 0-0 NEUTROPHIL # (test code=NT#) 13.20 K/mm3 1.8-7.7 IMMATURE GRANULOCYTE # (test code=IG#) 0.29 x10 3/uL 0-0.03 LYMPHOCYTE # (test code=LY#) 0.87 K/mm3 1.0-5.0 MONOCYTE # (test code=MO#) 0.79 K/mm3 0-0.8 EOSINOPHIL # (test code=EO#) 0.00 K/mm3 0.0-0.5 BASOPHIL # (test code=BA#) 0.03 K/mm3 0.0-0.2 NUCLEATED RBC # (test code=NRBC#) 0.00 K/mm3 0.0-0.1 MANUAL DIFF REQUIRED (test code=MDIFF) NO [id number] 05:15:00* Test Item Value Reference Range Comments GLUBED (test code=GLUBED) 293 mg/dL 74-106 Performed by certified control center operator at [facility] [id number] 01:20:00* Test Item Value Reference Range Comments GLUBED (test code=GLUBED) 276 mg/dL 74-106 Performed by certified control center operator at [facility] UR CREATININE CLEARANCE [id number] 20:02:00* Test Item Value Reference Range Comments CREATININE CLEARANCE RESULT (test code=CREATCLR) 5 mL/min 100-120 CREATININE (test code=CREAT) 3.70 mg/dL 0.7-1.3 UR CREATININE RANDOM (test code=CREATU) 135.0 mg/dL 30-125 UR VOLUME 24HR (test code=VOL) 200 mL/24hrs [id number] TV-200UR CREATININE CLEARANCE [id number] 20:01:00* Test Item Value Reference Range Comments CREATININE CLEARANCE RESULT (test code=CREATCLR) mL/min 100-120 CREATININE (test code=CREAT) mg/dL 0.7-1.3 UR CREATININE RANDOM (test code=CREATU) 135.0 mg/dL 30-125 UR VOLUME 24HR (test code=VOL) mL/24hrs 8545-0032 [id number] 16:04:00* Test Item Value Reference Range Comments GLUBED (test code=GLUBED) 301 mg/dL 74-106 Performed [facility] certified control [facility]~ PLEURAL [id number] 15:37:00 RUN DATE: 02/27/19 [facility] PAGE 1 RUN TIME: 1537 Specimen Inqui ry RUN USER: INTERFACE PATIENT: TORRES MAI ACCT #: V [id number] LOC: JUAN M U #: [id number] AGE/SX: 58/M ROOM: [facility] RE02/19/19[facility] [place] DR: Slava Gustafson MD : 56 BED: A DIS: STATUS: ADM IN TLOC: SPEC #: [id number] RECD: 02/26/19 STATUS: VIANEY REQ #: [id number] ANNETTE: 02/26/19 [facility] DR: Bala Jimenez MD ENTERED: 02/26/19 SP TYPE: PLEURAL FL OTHR DR: Pattie Rosanne zulema or Family Physician Franklin Morse DPM, Tahir MD L am,Eric Landin MD, MD,Andrew Perkins MD, MDORDERED: GROSS COPIES TO: No Primary or Family Physician rFanklin Morse DPM [address] [place] [address] Teddy Lim MD [address] [place], [place] [address] Jaqueline Roberts MD [address] [place] [phone] Kathy Jimenez MD [address] [place] [address] Tristan Salazar MD [address] [facility] [place] [address] Jayson Veloz MD [address] [place] [address] CONTINUED ON NEXT PAGE RUN DATE: 02/27/19 [facility] PAGE 2 RUN TIME: 1537 Specimen Inquiry RUN USER: INTERFACE - SPEC #: [id number] PATIENT: PAUTORRES #V0 [id number] (Continued) COPIES TO: (Continued) Azul Taylor MD [address] [facility] [address] [place], [place] [id number] PROCEDU RES: GROSS (02/27/19-1517) TISSUES: PLEURAL FLUID, NOS - 7 ML YELLOW CLINICAL HISTORY COLLECTION DATE: 02/26/19 PLEURAL EFFUSIONS FINAL DIAGNOSIS Right pleural fluid for cytology, thoracentesis: M ESOTHELIAL CELLS, MACROPHAGES, AND WHITE BLOOD CELLS NEGATIVE FOR MALIGNA NCY DMW/joyce D [id number], [id number] MACROSCOPIC The specim en consists of 7 mL of yellow fluid to be concentrated and processed for cytol ogic evaluation. A cell block is prepared. GROSS PERFORMED AT [facility] [address] [place] [address] (M)[phone] MICROSCOPIC All of the s tains, including any controls performed, stain appropriately. MICROSCOPI C PERFORMED AT [facility] [address] [place] [address] (P)[phone] CONTINUED ON NEXT PAGE RUN DATE: 02/27/19 [place] - Lab PAGE 3 RUN TIME: 1537 Specimen Inquiry RUN USER: INTERFACE SPEC #: [id number] PATIENT: TORRES MAI #[id number] (Continued)----- ------- PERFORMING SITE Diagnosis performed at: [facility] [address] [place] [address] Signed RAMOS PERDUE ON FILE Adriana Marin MD 02/27/19 1537 --------- --- EN D OF REPORT PLEURAL FLD CELL [id number] 13:37:00* Test Item Value Reference Range Comments FLUID WBC AUTO (test code=WBCFLA) 49 cells/uL FLUID RBC AUTO (test code=RBCFLA) 1000 cells/uL FLUID TOTAL CELLS (test code=TCFL) 55 cells/uL >0 Fluid WBC RBC PMN% MN%Type cells/uL cells/uL CSF (0-5) n/a (2+/-4) (90+/-20)Peritoneal n/a n/a n/a n/aPleural n/a n/a n/a n/aSynovial <200 n/a <25% <75% CSF (0-30) n/a (4+/-4) (90+/-20) PLEURAL FLD COLOR (test code=COLPL) YELLOW PLEURAL FLD APPEARANCE (test code=APPPL) CLEAR PLEURAL FLD POLY (test code=POLYPL) 68.0 % PLEURAL FLD LYMPHOCYTE (test code=LYMPHPL) 10.0 % PLEURAL FLD PLASMA CELL (test code=PLAPL) 1.0 % PLEURAL FLD MACROPHAGE (test code=MACPL) 21.0 % TOTAL CELLS COUNTED ON DIFF (test code=TOTCELLFL) 100 cells REVIEWED BY (test code=REVIEW) ADRIANA QUIROS PATHOLOGIST SPECIMEN COMMENTS: RIGHT PLEURAL FLUIDPLEURAL FLD [id number] 13:37:00* Test Item Value Reference Range Comments PLEURAL FLD PH (test code=PHPL) 7.0 SPECIMEN COMMENTS: RIGHT PLEURAL FLUIDPLEURAL FLD [id number] 13:37:00* Test Item Value Reference Range Comments PLEURAL FLD GLUCOSE (test code=GLUPL) 137 MG/DL SPECIMEN COMMENTS: RIGHT PLEURAL FLUIDPLEURAL FLD TOTAL [id number] 13:37:00* Test Item Value Reference Range Comments PLEURAL FLD TOTAL PROTEIN (test code=PROTPL) 1.8 gram/dL SPECIMEN COMMENTS: RIGHT PLEURAL FLUIDPLEURAL FLD [id number] 13:37:00* Test Item Value Reference Range Comments PLEURAL FLD LDH (test code=LDHPL) 87 IUnit/L SPECIMEN COMMENTS: RIGHT PLEURAL FLUIDPLEURAL FLD [id number] 13:37:00 * Test Item Value Reference Range Comments PLEURAL FLD CHOLESTEROL (test code=CHOLPL) < 50 MG/DL SPECIMEN COMMENTS: RIGHT PLEURAL FLUIDPLEURAL FLD [id number] 13:37:00* Test Item Value Reference Range Comments PLEURAL FLD TRIGLYCERIDE (test code=TRIGPL) 10 MG/DL SPECIMEN COMMENTS: RIGHT PLEURAL [id number] 11:20:00* Test Item Value Reference Range Comments GLUBED (test code=GLUBED) 256 mg/dL 74-106 Performed by certified control center operator at [facility] COMPREHENSIVE METABOLIC [id number] 10:32:00* Test Item Value Reference Range Comments SODIUM (test code=NA) 132 mmol/L 136-145 POTASSIUM (test code=K) 4.0 mmol/L 3.5-5.1 CHLORIDE (test code=CL) 93.0 mmol/L 98-107 CARBON DIOXIDE (test code=CO2) 26.0 mmol/L 21-32 ANION GAP (test code=GAP) 17.0 10-20 GLUCOSE (test code=GLU) 261 mg/dL 74-106 BLOOD UREA NITROGEN (test code=BUN) 72 mg/dL 7-18 GLOMERULAR FILTRATION RATE (test code=GFR) 15 mL/min >=60 Estimated GFR by using Modified MDRD formula.Chronic kidney disease is defined as either kidney damageor GFR <60 mL/min/1.73 m2 for >3 months. CREATININE (test code=CREAT) 4.10 mg/dL 0.7-1.3 BUN/CREATININE RATIO (test code=BUN/CREA) 17.4 10-20 TOTAL PROTEIN (test code=PROT) 7.3 gram/dL 6.4-8.2 ALBUMIN (test code=ALB) 1.9 g/dL 3.4-5.0 GLOBULIN (test code=GLOB) 5.4 gram/dL 2.7-4.2 ALBUMIN/GLOBULIN RATIO (test code=A/G) 0.4 0.75-1.50 CALCIUM (test code=CA) 7.9 mg/dL 8.5-10.1 BILIRUBIN TOTAL (test code=BILT) 0.40 mg/dL 0.0-1.0 SGOT/AST (test code=AST) 35 IUnit/L 15-37 SGPT/ALT (test code=ALT) 56 IUnit/L 12-78 ALKALINE PHOSPHATASE TOTAL (test code=ALKP) 120 IUnit/L 45-117 Note change in reference range due to change in reagent. COMPREHENSIVE METABOLIC [id number] 10:22:00* Test Item Value Reference Range Comments SODIUM (test code=NA) 132 mmol/L 136-145 POTASSIUM (test code=K) 4.0 mmol/L 3.5-5.1 CHLORIDE (test code=CL) 93.0 mmol/L 98-107 CARBON DIOXIDE (test code=CO2) mmol/L 21-32 ANION GAP (test code=GAP) 10-20 GLUCOSE (test code=GLU) mg/dL 74-106 BLOOD UREA NITROGEN (test code=BUN) mg/dL 7-18 GLOMERULAR FILTRATION RATE (test code=GFR) mL/min >=60 CREATININE (test code=CREAT) mg/dL 0.7-1.3 BUN/CREATININE RATIO (test code=BUN/CREA) 10-20 TOTAL PROTEIN (test code=PROT) gram/dL 6.4-8.2 ALBUMIN (test code=ALB) g/dL 3.4-5.0 GLOBULIN (test code=GLOB) gram/dL 2.7-4.2 ALBUMIN/GLOBULIN RATIO (test code=A/G) 0.75-1.50 CALCIUM (test code=CA) mg/dL 8.5-10.1 BILIRUBIN TOTAL (test code=BILT) mg/dL 0.0-1.0 SGOT/AST (test code=AST) IUnit/L 15-37 SGPT/ALT (test code=ALT) IUnit/L 12-78 ALKALINE PHOSPHATASE TOTAL (test code=ALKP) IUnit/L 45-117 CBC W/AUTO [id number] 10:07:00* Test Item Value Reference Range Comments WHITE BLOOD CELL (test code=WBC) 17.0 K/mm3 4.5-12.5 RED BLOOD CELL (test code=RBC) 3.00 mill/mm3 4.0-5.8 HEMOGLOBIN (test code=HGB) 8.3 gram/dL 13.0-17.5 HEMATOCRIT (test code=HCT) 25.8 % 42.0-52.0 MEAN CELL VOLUME (test code=MCV) 86.0 fL 80-98 MEAN CELL HGB (test code=MCH) 27.7 picogram 27.0-33.0 MEAN CELL HGB CONCETRATION (test code=MCHC) 32.2 gram/dL 33.0-36.0 RED CELL DISTRIBUTION WIDTH (test code=RDW) 13.1 % 11.6-16.2 RED CELL DISTRIBUTION WIDTH SD (test code=RDW-SD) 41.1 fL 37.0-51.0 PLATELET COUNT (test code=PLT) 327 K/mm3 150-450 MEAN PLATELET VOLUME (test code=MPV) 11.2 fL 6.7-11.0 NEUTROPHIL % (test code=NT%) 86.6 % 39.0-69.0 IMMATURE GRANULOCYTE % (test code=IG%) 1.6 % 0.0-5.0 LYMPHOCYTE % (test code=LY%) 6.1 % 25.0-55.0 MONOCYTE % (test code=MO%) 5.5 % 0.0-10.0 EOSINOPHIL % (test code=EO%) 0.0 % 0.0-5.0 BASOPHIL % (test code=BA%) 0.2 % 0.0-1.0 NUCLEATED RBC % (test code=NRBC%) 0.0 % 0-0 NEUTROPHIL # (test code=NT#) 14.74 K/mm3 1.8-7.7 IMMATURE GRANULOCYTE # (test code=IG#) 0.28 x10 3/uL 0-0.03 LYMPHOCYTE # (test code=LY#) 1.04 K/mm3 1.0-5.0 MONOCYTE # (test code=MO#) 0.94 K/mm3 0-0.8 EOSINOPHIL # (test code=EO#) 0.00 K/mm3 0.0-0.5 BASOPHIL # (test code=BA#) 0.04 K/mm3 0.0-0.2 NUCLEATED RBC # (test code=NRBC#) 0.00 K/mm3 0.0-0.1 [id number] 07:27:00* Test Item Value Reference Range Comments GLUBED (test code=GLUBED) 201 mg/dL 74-106 Performed by certified control center operator at [facility] [id number] 06:19:00* Test Item Value Reference Range Comments GLUBED (test code=GLUBED) 233 mg/dL 74-106 Performed by certified control center operator at [facility] [id number] 20:50:00* Test Item Value Reference Range Comments GLUBED (test code=GLUBED) 271 mg/dL 74-106 Performed by certified control center operator at [facility] [id number] 20:21:00* Test Item Value Reference Range Comments GLUBED (test code=GLUBED) 143 mg/dL 74-106 Performed by certified control center operator at [facility] FINGER/TOES AMP.,[id number] 15:11:00 RUN DATE: 02/26/19 [facility] PAGE 1 RUN TIME: 151 Specimen Inqui ry RUN USER: INTERFACE PATIENT: TORRES MAI ACCT #: [id number] LOC: JORDANU U #: [id number] AGE/SX: 58/M ROOM: [facility] RE02/19/19[facility] [place] DR: Slava Gustafson MD : 56 BED: A DIS: STATUS: ADM IN TLOC: SPEC #: [id number] RECD: 02/22/19 STATUS: VIANEY REQ #: [id number] ANNETTE: 02/21/19 [facility] DR: Franklin Morse PM ENTERED: 02/22/19 SP TYPE: FINGER/TOE OTHR DR: Franklin Morse DPM, Tahir MD Lam,Eric Ramirez MD, MD, Jes se Kitanishi MD Vasq uez Donado, Andres F MDORDERED: GROSS COPIES TO: Franklin Morse DPM [address] [address] Teddy Lim MD [address] [place] [address] Jaqueline Roberts MD [address] [place] [phone] Eric Salazar MD [address] [facility]. [address] [place] [address] Jayson Veloz MD [address] [place] [phone] Andrew Taylor MD [address] [place] [phone] PROCEDURES: GROSS ( 02/26/19-135) TISSUES: TOE, NOS - 5th RIGHT CONTINUED ON NEXT PAGE RUN DATE: 02/26/19 [place] - Lab PAGE 2 RUN TIME: 1511 Specimen Inquiry RUN USER: INTERFACE SPEC #: [id number] PATIENT: PAUTORRES #[id number] (Continued)- FINAL DIAGNOSIS Right lower extremity, fifth toe, amputa tion: GANGRENOUS NECROSIS OF SKIN AND SUBCUTANEOUS TISSUE WITH E PITHELIAL HYPERPLASIA AND AREA OF ULCERATION ASSOCIATED WITH FIBRINOPU RULENT EXUDATE MARKED ACUTE OSTEOMYELITIS NEGATIVE FOR MALIGNANCY RRB/sm A 31298, 09686 MACROSCOPIC The specimen is rec eived in formalin, labeled with the patient's name, and identified as "right f ifth toe". It consists of an amputated toe measuring 6.0 cm in length and 2.1 cm in diameter. There is a gangrenous lesion involving distal portion of the toe on both the dorsal and plantar aspect of foot. The ulceration of the lat eral and plantar aspect extends within 1 cm of the surgical soft tissue margin . There is a small valdez-brown thickened nail present. The soft tissue extends 1.5 cm beyond the bone margin. The skin and soft tissue at the margin is ink ed in black. Behavioral Psychologist sections are submitted after decalcification as f romario: 1A- medical office representative soft tissue margin and adjacent ulcer; 1B- represent ative portion of gangrenous lesion including underlying bone; 1C- representati ve bone and cartilage at margin; 1D- perpendicular section through distal tip including bone. GROSS PERFORMED AT [facility] [address] [place] [phone] (P) MICROSCOPIC All of the stains, including any controls perf ormed, stain appropriately. MICROSCOPIC PERFORMED AT [facility] [address] [place] [phone] ( P)[phone] CONTINUED ON NEXT PAGE RUN DATE: 02/26/19 [facility] PAGE 3 RUN TIME: 1511 Specimen Inqui ry RUN USER: INTERFACE SPEC #: [id number] PATIENT: TORRES MAI #[id number] (Continued) PERFORMING SIT E Diagnosis performed at: [facility] [address], [place] [phone] Signed SIGNATURE ON FILE Don Mcintosh MD 02/26/19 1511 END OF REPORT PLEURAL FLD CELL [id number] 13:41:00* Test Item Value Reference Range Comments FLUID WBC AUTO (test code=WBCFLA) 49 cells/uL FLUID RBC AUTO (test code=RBCFLA) 1000 cells/uL FLUID TOTAL CELLS (test code=TCFL) 55 cells/uL >0 Fluid WBC RBC PMN% MN%Type cells/uL cells/uL CSF (0-5) n/a (2+/-4) (90+/-20)Peritoneal n/a n/a n/a n/aPleural n/a n/a n/a n/aSynovial <200 n/a <25% <75% CSF (0-30) n/a (4+/-4) (90+/-20) PLEURAL FLD COLOR (test code=COLPL) YELLOW PLEURAL FLD APPEARANCE (test code=APPPL) CLEAR PLEURAL FLD POLY (test code=POLYPL) 68.0 % PLEURAL FLD LYMPHOCYTE (test code=LYMPHPL) 10.0 % PLEURAL FLD PLASMA CELL (test code=PLAPL) 1.0 % PLEURAL FLD MACROPHAGE (test code=MACPL) 21.0 % TOTAL CELLS COUNTED ON DIFF (test code=TOTCELLFL) 100 cells REVIEWED BY (test code=REVIEW) PATHOLOGIST SPECIMEN COMMENTS: RIGHT PLEURAL FLUIDPLEURAL FLD [id number] 13:41:00* Test Item Value Reference Range Comments PLEURAL FLD PH (test code=PHPL) 7.0 SPECIMEN COMMENTS: RIGHT PLEURAL FLUIDPLEURAL FLD [id number] 13:41:00* Test Item Value Reference Range Comments PLEURAL FLD GLUCOSE (test code=GLUPL) 137 MG/DL SPECIMEN COMMENTS: RIGHT PLEURAL FLUIDPLEURAL FLD TOTAL [id number] 13:41:00* Test Item Value Reference Range Comments PLEURAL FLD TOTAL PROTEIN (test code=PROTPL) 1.8 gram/dL SPECIMEN COMMENTS: RIGHT PLEURAL FLUIDPLEURAL FLD [id number] 13:41:00* Test Item Value Reference Range Comments PLEURAL FLD LDH (test code=LDHPL) 87 IUnit/L SPECIMEN COMMENTS: RIGHT PLEURAL FLUIDPLEURAL FLD [id number] 13:41:00 * Test Item Value Reference Range Comments PLEURAL FLD CHOLESTEROL (test code=CHOLPL) < 50 MG/DL SPECIMEN COMMENTS: RIGHT PLEURAL FLUIDPLEURAL FLD [id number] 13:41:00* Test Item Value Reference Range Comments PLEURAL FLD TRIGLYCERIDE (test code=TRIGPL) 10 MG/DL SPECIMEN COMMENTS: RIGHT PLEURAL FLUIDPLEURAL FLD CELL [id number] 10:57:00* Test Item Value Reference Range Comments FLUID WBC AUTO (test code=WBCFLA) 49 cells/uL FLUID RBC AUTO (test code=RBCFLA) 1000 cells/uL FLUID TOTAL CELLS (test code=TCFL) 55 cells/uL >0 Fluid WBC RBC PMN% MN%Type cells/uL cells/uL CSF (0-5) n/a (2+/-4) (90+/-20)Peritoneal n/a n/a n/a n/aPleural n/a n/a n/a n/aSynovial <200 n/a <25% <75% CSF (0-30) n/a (4+/-4) (90+/-20) PLEURAL FLD COLOR (test code=COLPL) YELLOW PLEURAL FLD APPEARANCE (test code=APPPL) CLEAR TOTAL CELLS COUNTED ON DIFF (test code=TOTCELLFL) cells REVIEWED BY (test code=REVIEW) PATHOLOGIST SPECIMEN COMMENTS: RIGHT PLEURAL FLUIDPLEURAL FLD [id number] 10:57:00* Test Item Value Reference Range Comments PLEURAL FLD PH (test code=PHPL) 7.0 SPECIMEN COMMENTS: RIGHT PLEURAL FLUIDPLEURAL FLD [id number] 10:57:00* Test Item Value Reference Range Comments PLEURAL FLD GLUCOSE (test code=GLUPL) 137 MG/DL SPECIMEN COMMENTS: RIGHT PLEURAL FLUIDPLEURAL FLD TOTAL [id number] 10:57:00* Test Item Value Reference Range Comments PLEURAL FLD TOTAL PROTEIN (test code=PROTPL) 1.8 gram/dL SPECIMEN COMMENTS: RIGHT PLEURAL FLUIDPLEURAL FLD [id number] 10:57:00* Test Item Value Reference Range Comments PLEURAL FLD LDH (test code=LDHPL) 87 IUnit/L SPECIMEN COMMENTS: RIGHT PLEURAL FLUIDPLEURAL FLD [id number] 10:57:00 * Test Item Value Reference Range Comments PLEURAL FLD CHOLESTEROL (test code=CHOLPL) < 50 MG/DL SPECIMEN COMMENTS: RIGHT PLEURAL FLUIDPLEURAL FLD [id number] 10:57:00* Test Item Value Reference Range Comments PLEURAL FLD TRIGLYCERIDE (test code=TRIGPL) 10 MG/DL SPECIMEN COMMENTS: RIGHT PLEURAL FLUIDPLEURAL FLD CELL [id number] 10:40:00* Test Item Value Reference Range Comments FLUID WBC AUTO (test code=WBCFLA) 49 cells/uL FLUID RBC AUTO (test code=RBCFLA) 1000 cells/uL FLUID TOTAL CELLS (test code=TCFL) 55 cells/uL >0 Fluid WBC RBC PMN% MN%Type cells/uL cells/uL CSF (0-5) n/a (2+/-4) (90+/-20)Peritoneal n/a n/a n/a n/aPleural n/a n/a n/a n/aSynovial <200 n/a <25% <75% CSF (0-30) n/a (4+/-4) (90+/-20) PLEURAL FLD COLOR (test code=COLPL) YELLOW PLEURAL FLD APPEARANCE (test code=APPPL) CLEAR TOTAL CELLS COUNTED ON DIFF (test code=TOTCELLFL) cells REVIEWED BY (test code=REVIEW) PATHOLOGIST SPECIMEN COMMENTS: RIGHT PLEURAL FLUIDPLEURAL FLD [id number] 10:40:00* Test Item Value Reference Range Comments PLEURAL FLD PH (test code=PHPL) 7.0 SPECIMEN COMMENTS: RIGHT PLEURAL FLUIDPLEURAL FLD [id number] 10:40:00* Test Item Value Reference Range Comments PLEURAL FLD GLUCOSE (test code=GLUPL) MG/DL SPECIMEN COMMENTS: RIGHT PLEURAL FLUIDPLEURAL FLD TOTAL [id number] 10:40:00* Test Item Value Reference Range Comments PLEURAL FLD TOTAL PROTEIN (test code=PROTPL) gram/dL SPECIMEN COMMENTS: RIGHT PLEURAL FLUIDPLEURAL FLD [id number] 10:40:00* Test Item Value Reference Range Comments PLEURAL FLD LDH (test code=LDHPL) IUnit/L SPECIMEN COMMENTS: RIGHT PLEURAL FLUIDPLEURAL FLD [id number] 10:40:00 * Test Item Value Reference Range Comments PLEURAL FLD CHOLESTEROL (test code=CHOLPL) MG/DL SPECIMEN COMMENTS: RIGHT PLEURAL FLUIDPLEURAL FLD [id number] 10:40:00* Test Item Value Reference Range Comments PLEURAL FLD TRIGLYCERIDE (test code=TRIGPL) MG/DL SPECIMEN COMMENTS: RIGHT PLEURAL FLUIDPLEURAL FLD CELL [id number] 10:38:00* Test Item Value Reference Range Comments FLUID WBC AUTO (test code=WBCFLA) 49 cells/uL FLUID RBC AUTO (test code=RBCFLA) 1000 cells/uL FLUID TOTAL CELLS (test code=TCFL) 55 cells/uL >0 Fluid WBC RBC PMN% MN%Type cells/uL cells/uL CSF (0-5) n/a (2+/-4) (90+/-20)Peritoneal n/a n/a n/a n/aPleural n/a n/a n/a n/aSynovial <200 n/a <25% <75% CSF (0-30) n/a (4+/-4) (90+/-20) PLEURAL FLD COLOR (test code=COLPL) PLEURAL FLD APPEARANCE (test code=APPPL) PLEURAL FLD WBC (test code=WBCPL) per uL 0-1000 PLEURAL FLD RBC (test code=RBCPL) per uL 0-50 TOTAL CELLS COUNTED ON DIFF (test code=TOTCELLFL) cells REVIEWED BY (test code=REVIEW) PATHOLOGIST SPECIMEN COMMENTS: RIGHT PLEURAL FLUIDPLEURAL FLD [id number] 10:38:00* Test Item Value Reference Range Comments PLEURAL FLD PH (test code=PHPL) SPECIMEN COMMENTS: RIGHT PLEURAL FLUIDPLEURAL FLD [id number] 10:38:00* Test Item Value Reference Range Comments PLEURAL FLD GLUCOSE (test code=GLUPL) MG/DL SPECIMEN COMMENTS: RIGHT PLEURAL FLUIDPLEURAL FLD TOTAL [id number] 10:38:00* Test Item Value Reference Range Comments PLEURAL FLD TOTAL PROTEIN (test code=PROTPL) gram/dL SPECIMEN COMMENTS: RIGHT PLEURAL FLUIDPLEURAL FLD [id number] 10:38:00* Test Item Value Reference Range Comments PLEURAL FLD LDH (test code=LDHPL) IUnit/L SPECIMEN COMMENTS: RIGHT PLEURAL FLUIDPLEURAL FLD [id number] 10:38:00 * Test Item Value Reference Range Comments PLEURAL FLD CHOLESTEROL (test code=CHOLPL) MG/DL SPECIMEN COMMENTS: RIGHT PLEURAL FLUIDPLEURAL FLD [id number] 10:38:00* Test Item Value Reference Range Comments PLEURAL FLD TRIGLYCERIDE (test code=TRIGPL) MG/DL SPECIMEN COMMENTS: RIGHT PLEURAL FLUID- SP THORACENTESIS [id number] 10:34:00 Name: TORRES MAI [facility] : 1960 Age/S: 58 / M [address] Unit #: [id number] Loc: [place] [address] Phys: Slava Gustafson MD Acct: [id number] Dis Date: Status: ADM IN PHONE #: [phone] Exam Date: 02/26/2019930 FAX #: [phone] Reason: / EXAMS: CPT CODE: [id number] SP THORACENTESIS W/IMAG 38750 Fluoro Time: DAP (Gy m2): Air Kerma (mGy): REASON FOR EXAM: Small bilateral pleural effusions Exam order date: 02/26/2019 9:13 AM PROCEDURE: Ultrasound guided right thoracentesis Attending MRigo.: Slava Gustafson MD CPT code: 71701, 22527 FINDINGS: Prior to the procedure, informed consent was obtained after risks and benefits of the procedure were explained to the patient. The patient agreed and wanted to proceed. The patient was brought to special procedures. The back was prepped and draped in the usual fashion. All elements of maximal sterile techniques were followed. Ultrasound was first used for assessment of the effusion. US shows small effusion. Images of the effusion were submitted to PACS. 2% local lidocaine was given for local anesthetic. Under real time ultrasound guidance, a micropuncture needle was advanced into the right thoracic cavity. A guide wire was inserted and an 8 Fr catheter was inserted in the thoracic cavity. 300 cc of fluid obtained. The catheter was removed and hemostasis obtained. Samples were submitted for gram stain, cultures, cell count, LDH, glucose, and protein. MEDICATIONS: None COMPLICATIONS: No immediate. Blood loss: less than 5cc IMPRESSION: 300 cc of fluid removed from the right thoracic cavity. at 1034 Reported and signed by: Bala Jimenez M.D. CC: Slava Gustafson MD Technologist: JAQUELINE LING [facility] Trnscb Date/Time: 02/26/2019 (1036) Bernie Orig Print D/T: S: 02/26/2019 (1037) PAGE 1 Signed Report - XR CHEST 1 [id number] 09:42:00 FAX: Slava Gustafson MD [phone] [place]: St: ADM Name: TORRES CAN [facility] : [birth year] Age/S: 58/M [address] [facility] Unit #: [id number] Loc: [address] [place] [address] Phys: Bala Jimenez MD Acct: [id number] Dis Date: Status: ADM IN PHONE #: [phone] Exam Date: 02/26/2019 0939 FAX #: [phone] Reason: S/P RIGHT THORACENTESIS EXAMS: CPT CODE: [id number] XR CHEST 1 V 96944 REASON FOR EXAM: S/P RIGHT THORACENTESIS EXAM ORDER DATE: 02/26/2019 9:30 AM Or kitty Gama: Bala Jimenez MD PROCEDURE: - XR CHEST 1 V COMPARISON: FINDINGS: Portable AP frontal view of the chest ob tained at 02/21/2019 shows patchy airspace opacity of the bases. There is n o evidence of effusion. The heart size is within normal limits. Pulmonary vasculatures are minimally congested. IMPRESSION: Status post right thoracentesis without evidence of pneumothorax. E lectronically Signed by Lanette Jimenez on 02/26/2019 at 0942 Reported and signed by: Bala Jimenez M.D. CC: Slava Gustafson MD Technologist: RT BRIA(R) Trnscrd Date/Time/By: 02/26/2019 (0942) : By: Mitch GASTON Orig Print D/T: S: 02/26/2019 (0778) FABIOLA MUELLER 1 Signed Report GLUBED 2019-02-26 08:29:00* Test Item Value Reference Range Comments GLUBED (test code=GLUBED) 134 mg/dL 74-106 Performed by certified control center operator at [facility] [id number] 08:08:00* Test Item Value Reference Range Comments GLUBED (test code=GLUBED) 89 mg/dL 74-106 Performed by certified control center operator at [facility] BASIC METABOLIC [id number] 05:21:00* Test Item Value Reference Range Comments SODIUM (test code=NA) 132 mmol/L 136-145 POTASSIUM (test code=K) 3.8 mmol/L 3.5-5.1 CHLORIDE (test code=CL) 94.0 mmol/L 98-107 CARBON DIOXIDE (test code=CO2) 30.0 mmol/L 21-32 ANION GAP (test code=GAP) 11.8 10-20 GLUCOSE (test code=GLU) 171 mg/dL 74-106 BLOOD UREA NITROGEN (test code=BUN) 61 mg/dL 7-18 GLOMERULAR FILTRATION RATE (test code=GFR) 17 mL/min >=60 Estimated GFR by using Modified MDRD formula.Chronic kidney disease is defined as either kidney damageor GFR <60 mL/min/1.73 m2 for >3 months. CREATININE (test code=CREAT) 3.70 mg/dL 0.7-1.3 BUN/CREATININE RATIO (test code=BUN/CREA) 16.7 10-20 CALCIUM (test code=CA) 7.5 mg/dL 8.5-10.1 B-TYPE NATRIURETIC [id number] 05:01:00* Test Item Value Reference Range Comments B-TYPE NATRIURETIC PEPTIDE (test code=BNP) 1045.34 pgram/mL 0-100 CBC W/AUTO [id number] 04:56:00* Test Item Value Reference Range Comments WHITE BLOOD CELL (test code=WBC) 16.8 K/mm3 4.5-12.5 RED BLOOD CELL (test code=RBC) 3.13 mill/mm3 4.0-5.8 HEMOGLOBIN (test code=HGB) 8.6 gram/dL 13.0-17.5 HEMATOCRIT (test code=HCT) 27.0 % 42.0-52.0 MEAN CELL VOLUME (test code=MCV) 86.3 fL 80-98 MEAN CELL HGB (test code=MCH) 27.5 picogram 27.0-33.0 MEAN CELL HGB CONCETRATION (test code=MCHC) 31.9 gram/dL 33.0-36.0 RED CELL DISTRIBUTION WIDTH (test code=RDW) 12.9 % 11.6-16.2 RED CELL DISTRIBUTION WIDTH SD (test code=RDW-SD) 40.5 fL 37.0-51.0 PLATELET COUNT (test code=PLT) 250 K/mm3 150-450 RESULT VERIFIED BY REPEAT ANALYSIS MEAN PLATELET VOLUME (test code=MPV) 10.9 fL 6.7-11.0 NEUTROPHIL % (test code=NT%) 85.9 % 39.0-69.0 IMMATURE GRANULOCYTE % (test code=IG%) 1.9 % 0.0-5.0 LYMPHOCYTE % (test code=LY%) 5.6 % 25.0-55.0 MONOCYTE % (test code=MO%) 6.3 % 0.0-10.0 EOSINOPHIL % (test code=EO%) 0.0 % 0.0-5.0 BASOPHIL % (test code=BA%) 0.3 % 0.0-1.0 NUCLEATED RBC % (test code=NRBC%) 0.0 % 0-0 NEUTROPHIL # (test code=NT#) 14.40 K/mm3 1.8-7.7 IMMATURE GRANULOCYTE # (test code=IG#) 0.32 x10 3/uL 0-0.03 LYMPHOCYTE # (test code=LY#) 0.94 K/mm3 1.0-5.0 MONOCYTE # (test code=MO#) 1.06 K/mm3 0-0.8 EOSINOPHIL # (test code=EO#) 0.00 K/mm3 0.0-0.5 BASOPHIL # (test code=BA#) 0.05 K/mm3 0.0-0.2 NUCLEATED RBC # (test code=NRBC#) 0.00 K/mm3 0.0-0.1 MANUAL DIFF REQUIRED (test code=MDIFF) NO [id number] 20:33:00* Test Item Value Reference Range Comments GLUBED (test code=GLUBED) 139 mg/dL 74-106 Performed by certified control center operator at [facility] [id number] 20:33:00* Test Item Value Reference Range Comments GLUBED (test code=GLUBED) 38 mg/dL 74-106 [facility]~ [id number] 20:33:00* Test Item Value Reference Range Comments GLUBED (test code=GLUBED) 124 mg/dL 74-106 Performed by certified control center operator at [facility] [id number] 08:48:00* Test Item Value Reference Range Comments GLUBED (test code=GLUBED) 145 mg/dL 74-106 Performed by certified control center operator at [facility] [id number] 08:48:00* Test Item Value Reference Range Comments GLUBED (test code=GLUBED) 67 mg/dL 74-106 Performed by certified control center operator at [facility] B-TYPE NATRIURETIC [id number] 05:26:00* Test Item Value Reference Range Comments B-TYPE NATRIURETIC PEPTIDE (test code=BNP) 1217.33 pgram/mL 0-100 CBC W/AUTO [id number] 05:04:00* Test Item Value Reference Range Comments WHITE BLOOD CELL (test code=WBC) 18.4 K/mm3 4.5-12.5 RED BLOOD CELL (test code=RBC) 3.07 mill/mm3 4.0-5.8 HEMOGLOBIN (test code=HGB) 8.5 gram/dL 13.0-17.5 HEMATOCRIT (test code=HCT) 26.4 % 42.0-52.0 MEAN CELL VOLUME (test code=MCV) 86.0 fL 80-98 MEAN CELL HGB (test code=MCH) 27.7 picogram 27.0-33.0 MEAN CELL HGB CONCETRATION (test code=MCHC) 32.2 gram/dL 33.0-36.0 RED CELL DISTRIBUTION WIDTH (test code=RDW) 12.8 % 11.6-16.2 RED CELL DISTRIBUTION WIDTH SD (test code=RDW-SD) 40.1 fL 37.0-51.0 PLATELET COUNT (test code=PLT) 305 K/mm3 150-450 MEAN PLATELET VOLUME (test code=MPV) 11.0 fL 6.7-11.0 NEUTROPHIL % (test code=NT%) 87.9 % 39.0-69.0 IMMATURE GRANULOCYTE % (test code=IG%) 1.9 % 0.0-5.0 LYMPHOCYTE % (test code=LY%) 4.2 % 25.0-55.0 MONOCYTE % (test code=MO%) 5.7 % 0.0-10.0 EOSINOPHIL % (test code=EO%) 0.0 % 0.0-5.0 BASOPHIL % (test code=BA%) 0.3 % 0.0-1.0 NUCLEATED RBC % (test code=NRBC%) 0.0 % 0-0 NEUTROPHIL # (test code=NT#) 16.21 K/mm3 1.8-7.7 IMMATURE GRANULOCYTE # (test code=IG#) 0.35 x10 3/uL 0-0.03 LYMPHOCYTE # (test code=LY#) 0.77 K/mm3 1.0-5.0 MONOCYTE # (test code=MO#) 1.05 K/mm3 0-0.8 EOSINOPHIL # (test code=EO#) 0.00 K/mm3 0.0-0.5 BASOPHIL # (test code=BA#) 0.05 K/mm3 0.0-0.2 NUCLEATED RBC # (test code=NRBC#) 0.00 K/mm3 0.0-0.1 MANUAL DIFF REQUIRED (test code=MDIFF) NO BASIC METABOLIC [id number] 04:57:00* Test Item Value Reference Range Comments SODIUM (test code=NA) 134 mmol/L 136-145 POTASSIUM (test code=K) 3.9 mmol/L 3.5-5.1 CHLORIDE (test code=CL) 95.0 mmol/L 98-107 CARBON DIOXIDE (test code=CO2) 28.0 mmol/L 21-32 ANION GAP (test code=GAP) 14.9 10-20 GLUCOSE (test code=GLU) 75 mg/dL 74-106 BLOOD UREA NITROGEN (test code=BUN) 62 mg/dL 7-18 GLOMERULAR FILTRATION RATE (test code=GFR) 21 mL/min >=60 Estimated GFR by using Modified MDRD formula.Chronic kidney disease is defined as either kidney damageor GFR <60 mL/min/1.73 m2 for >3 months. CREATININE (test code=CREAT) 3.10 mg/dL 0.7-1.3 BUN/CREATININE RATIO (test code=BUN/CREA) 19.8 10-20 CALCIUM (test code=CA) 7.1 mg/dL 8.5-10.1 [id number] 22:08:00* Test Item Value Reference Range Comments GLUBED (test code=GLUBED) 132 mg/dL 74-106 Performed by certified control center operator at [facility] [id number] 16:38:00* Test Item Value Reference Range Comments GLUBED (test code=GLUBED) 154 mg/dL 74-106 Performed by certified control center operator at [facility] [id number] 11:50:00* Test Item Value Reference Range Comments GLUBED (test code=GLUBED) 118 mg/dL 74-106 Performed by certified control center operator at [facility] - CT CHEST W/O [id number] 11:28:00 Name: TORRES MAI [facility] : 1960 Age/S: 58 / M [address] [facility] Unit #: [id number] Loc: AKOSUA Perez [address] Phys: Ml Fan MSN Acct: [id number] Dis Date: Status: ADM IN PHONE #: [phone] Exam Date: 02/24/2019 1115 FAX #: [phone] Reason: hypoxia EXAMS: CPT CODE: [id number] CT CHEST W/O CONTRAST 39256 HISTORY: Hypoxia. Sepsis. COMPARISON: Chest x-ray from February 20, 2019. CT chest without contrast: Automated exposure control. Dense right basal consolidation consolidation. Patchy groundglass infiltrates in the rest of bilateral lungs. Moderate right and small left effusion with compressive bibasal subsegmental lower lobe atelectasis. No bronchiectasis, honeycombing or fibrosis or endobronchial lesions. Normal caliber unopacified aorta and pulmonary arteries. Unremarkable thyroid glands. Esophageal wall is not thickened. No pathologic adenopathy. Cardiomegaly trace pericardial effusion. Mild atherosclerotic calcification of the coronary arteries. Visualized upper abdomen demonstrating modera tely distended incompletely included gallbladder. The subcutaneous tissue s and the musculature are normal in appearance. No lytic or blastic lesio ns are noted within the bony skeleton. IMPRESSION: Dense consolidation in the right base with groundglass infiltrates in the rest of the lungs bilaterally. Moderate right and small left effusion. Bibasal subsegmental atelectasis. No pathologic adenopathy. at 1128 Reported and signed by: Tima Rios M.D. CC: Ml Fan MSN; Slava Gustafson MD Technologist:Sigrid villalta RT(R),CT; CTDI: DLP: Trnscb Date/Time: 02/24/2019 (112 8) t.[email or web address] Orig Print D/T: S: 02/24/2019 (1131) FABIOLA GE 1 Signed Report GLUBED 2019-02-24 08:12:00* Test Item Value Reference Range Comments GLUBED (test code=GLUBED) 77 mg/dL 74-106 Performed by certified control center operator at [facility] CBC W/AUTO [id number] 06:01:00* Test Item Value Reference Range Comments WHITE BLOOD CELL (test code=WBC) 22.2 K/mm3 4.5-12.5 RED BLOOD CELL (test code=RBC) 3.38 mill/mm3 4.0-5.8 HEMOGLOBIN (test code=HGB) 9.5 gram/dL 13.0-17.5 HEMATOCRIT (test code=HCT) 28.4 % 42.0-52.0 MEAN CELL VOLUME (test code=MCV) 84.0 fL 80-98 MEAN CELL HGB (test code=MCH) 28.1 picogram 27.0-33.0 MEAN CELL HGB CONCETRATION (test code=MCHC) 33.5 gram/dL 33.0-36.0 RED CELL DISTRIBUTION WIDTH (test code=RDW) 12.6 % 11.6-16.2 RED CELL DISTRIBUTION WIDTH SD (test code=RDW-SD) 38.6 fL 37.0-51.0 PLATELET COUNT (test code=PLT) 345 K/mm3 150-450 MEAN PLATELET VOLUME (test code=MPV) 11.2 fL 6.7-11.0 NEUTROPHIL % (test code=NT%) 89.4 % 39.0-69.0 IMMATURE GRANULOCYTE % (test code=IG%) 1.4 % 0.0-5.0 LYMPHOCYTE % (test code=LY%) 4.5 % 25.0-55.0 MONOCYTE % (test code=MO%) 4.5 % 0.0-10.0 EOSINOPHIL % (test code=EO%) 0.0 % 0.0-5.0 BASOPHIL % (test code=BA%) 0.2 % 0.0-1.0 NUCLEATED RBC % (test code=NRBC%) 0.0 % 0-0 NEUTROPHIL # (test code=NT#) 19.87 K/mm3 1.8-7.7 IMMATURE GRANULOCYTE # (test code=IG#) 0.32 x10 3/uL 0-0.03 LYMPHOCYTE # (test code=LY#) 0.99 K/mm3 1.0-5.0 MONOCYTE # (test code=MO#) 1.00 K/mm3 0-0.8 EOSINOPHIL # (test code=EO#) 0.00 K/mm3 0.0-0.5 BASOPHIL # (test code=BA#) 0.05 K/mm3 0.0-0.2 NUCLEATED RBC # (test code=NRBC#) 0.00 K/mm3 0.0-0.1 MANUAL DIFF REQUIRED (test code=MDIFF) NO B-TYPE NATRIURETIC [id number] 05:59:00* Test Item Value Reference Range Comments B-TYPE NATRIURETIC PEPTIDE (test code=BNP) 1547.04 pgram/mL 0-100 BASIC METABOLIC [id number] 05:52:00* Test Item Value Reference Range Comments SODIUM (test code=NA) 133 mmol/L 136-145 POTASSIUM (test code=K) 3.2 mmol/L 3.5-5.1 CHLORIDE (test code=CL) 94.0 mmol/L 98-107 CARBON DIOXIDE (test code=CO2) 28.0 mmol/L 21-32 ANION GAP (test code=GAP) 14.2 10-20 GLUCOSE (test code=GLU) 76 mg/dL 74-106 BLOOD UREA NITROGEN (test code=BUN) 63 mg/dL 7-18 GLOMERULAR FILTRATION RATE (test code=GFR) 21 mL/min >=60 Estimated GFR by using Modified MDRD formula.Chronic kidney disease is defined as either kidney damageor GFR <60 mL/min/1.73 m2 for >3 months. CREATININE (test code=CREAT) 3.10 mg/dL 0.7-1.3 BUN/CREATININE RATIO (test code=BUN/CREA) 20.3 10-20 CALCIUM (test code=CA) 7.6 mg/dL 8.5-10.1 BASIC METABOLIC [id number] 05:48:00* Test Item Value Reference Range Comments SODIUM (test code=NA) 133 mmol/L 136-145 POTASSIUM (test code=K) 3.2 mmol/L 3.5-5.1 CHLORIDE (test code=CL) 94.0 mmol/L 98-107 CARBON DIOXIDE (test code=CO2) mmol/L 21-32 ANION GAP (test code=GAP) 10-20 GLUCOSE (test code=GLU) mg/dL 74-106 BLOOD UREA NITROGEN (test code=BUN) mg/dL 7-18 GLOMERULAR FILTRATION RATE (test code=GFR) mL/min >=60 CREATININE (test code=CREAT) mg/dL 0.7-1.3 BUN/CREATININE RATIO (test code=BUN/CREA) 10-20 CALCIUM (test code=CA) mg/dL 8.5-10.1 [id number] 20:52:00* Test Item Value Reference Range Comments GLUBED (test code=GLUBED) 137 mg/dL 74-106 Performed by certified control center operator at [facility] [id number] 16:54:00* Test Item Value Reference Range Comments GLUBED (test code=GLUBED) 160 mg/dL 74-106 Performed by certified control center operator at [facility] [id number] 16:54:00* Test Item Value Reference Range Comments GLUBED (test code=GLUBED) 175 mg/dL 74-106 Performed by certified control center operator at [facility] [id number] 16:54:00* Test Item Value Reference Range Comments GLUBED (test code=GLUBED) 121 mg/dL 74-106 Performed by certified control center operator at [facility] CBC W/MANUAL [id number] 06:07:00* Test Item Value Reference Range Comments WHITE BLOOD CELL (test code=WBC) 24.1 K/mm3 4.5-12.5 RED BLOOD CELL (test code=RBC) 3.04 mill/mm3 4.0-5.8 HEMOGLOBIN (test code=HGB) 8.4 gram/dL 13.0-17.5 HEMATOCRIT (test code=HCT) 25.6 % 42.0-52.0 MEAN CELL VOLUME (test code=MCV) 84.2 fL 80-98 MEAN CELL HGB (test code=MCH) 27.6 picogram 27.0-33.0 MEAN CELL HGB CONCETRATION (test code=MCHC) 32.8 gram/dL 33.0-36.0 RED CELL DISTRIBUTION WIDTH (test code=RDW) 12.4 % 11.6-16.2 RED CELL DISTRIBUTION WIDTH SD (test code=RDW-SD) 37.7 fL 37.0-51.0 PLATELET COUNT (test code=PLT) 311 K/mm3 150-450 MEAN PLATELET VOLUME (test code=MPV) 11.1 fL 6.7-11.0 IMMATURE GRANULOCYTE % (test code=IG%) 1.9 % 0.0-5.0 NUCLEATED RBC % (test code=NRBC%) 0.0 % 0-0 NEUTROPHIL # (test code=NT#) 21.33 K/mm3 1.8-7.7 IMMATURE GRANULOCYTE # (test code=IG#) 0.45 x10 3/uL 0-0.03 LYMPHOCYTE # (test code=LY#) 1.12 K/mm3 1.0-5.0 MONOCYTE # (test code=MO#) 1.11 K/mm3 0-0.8 EOSINOPHIL # (test code=EO#) 0.00 K/mm3 0.0-0.5 BASOPHIL # (test code=BA#) 0.07 K/mm3 0.0-0.2 NUCLEATED RBC # (test code=NRBC#) 0.00 K/mm3 0.0-0.1 MANUAL DIFF REQUIRED (test code=MDIFF) YES STAIN ACCEPTABILITY (test code=STN ACCEPTABLE) STAIN ACCEPTABLE TOTAL CELLS COUNTED (test code=TCC) 114 #CELLS SEGMENTED NEUTROPHILS (test code=SEG) 92.1 % 39-69 BAND NEUTROPHIL (test code=BAND) 0 % 0-10 LYMPHOCYTE (test code=LYMPH) 7.0 % 25-55 REACTIVE LYMPH (test code=RELYMPH) 0.9 % MONOCYTE (test code=MON) 0 % 0-10 EOSINOPHIL (test code=EOS) 0 % 0.0-5.0 BASOPHIL (test code=BASO) 0 % 0-1.0 METAMYELOCYTE (test code=META) 0 % 0-0 MYELOCYTE (test code=MYELO) 0 % 0.0-0.0 PROMYELOCYTE (test code=PROM) 0 % 0-0 POIKILOCYTOSIS (test code=POIK) 1+ ANISOCYTOSIS (test code=ANISO) 1+ MICROCYTOSIS (test code=MICR) 1+ CRENATED CELLS (test code=CREN) 1+ PLATELET ESTIMATE (test code=PLTEST) ADEQUATE PLATELET MORPHOLOGY (test code=PLTMORPH) NORMAL IMMATURE FORMS (test code=IMMAT) 0 % 0-0 BASIC METABOLIC [id number] 05:43:00* Test Item Value Reference Range Comments SODIUM (test code=NA) 134 mmol/L 136-145 POTASSIUM (test code=K) 3.7 mmol/L 3.5-5.1 CHLORIDE (test code=CL) 93.0 mmol/L 98-107 CARBON DIOXIDE (test code=CO2) 28.0 mmol/L 21-32 ANION GAP (test code=GAP) 16.7 10-20 GLUCOSE (test code=GLU) 126 mg/dL 74-106 BLOOD UREA NITROGEN (test code=BUN) 67 mg/dL 7-18 GLOMERULAR FILTRATION RATE (test code=GFR) 20 mL/min >=60 Estimated GFR by using Modified MDRD formula.Chronic kidney disease is defined as either kidney damageor GFR <60 mL/min/1.73 m2 for >3 months. CREATININE (test code=CREAT) 3.20 mg/dL 0.7-1.3 BUN/CREATININE RATIO (test code=BUN/CREA) 21.1 10-20 CALCIUM (test code=CA) 7.1 mg/dL 8.5-10.1 [id number] 05:43:00* Test Item Value Reference Range Comments PHOSPHORUS (test code=PHOS) 3.0 mg/dL 2.5-4.9 BASIC METABOLIC [id number] 05:33:00* Test Item Value Reference Range Comments SODIUM (test code=NA) 134 mmol/L 136-145 POTASSIUM (test code=K) 3.7 mmol/L 3.5-5.1 CHLORIDE (test code=CL) 93.0 mmol/L 98-107 CARBON DIOXIDE (test code=CO2) mmol/L 21-32 ANION GAP (test code=GAP) 10-20 GLUCOSE (test code=GLU) mg/dL 74-106 BLOOD UREA NITROGEN (test code=BUN) mg/dL 7-18 GLOMERULAR FILTRATION RATE (test code=GFR) mL/min >=60 CREATININE (test code=CREAT) mg/dL 0.7-1.3 BUN/CREATININE RATIO (test code=BUN/CREA) 10-20 CALCIUM (test code=CA) mg/dL 8.5-10.1 [id number] 05:33:00* Test Item Value Reference Range Comments PHOSPHORUS (test code=PHOS) mg/dL 2.5-4.9 CBC W/MANUAL [id number] 05:10:00* Test Item Value Reference Range Comments WHITE BLOOD CELL (test code=WBC) 24.1 K/mm3 4.5-12.5 RED BLOOD CELL (test code=RBC) 3.04 mill/mm3 4.0-5.8 HEMOGLOBIN (test code=HGB) 8.4 gram/dL 13.0-17.5 HEMATOCRIT (test code=HCT) 25.6 % 42.0-52.0 MEAN CELL VOLUME (test code=MCV) 84.2 fL 80-98 MEAN CELL HGB (test code=MCH) 27.6 picogram 27.0-33.0 MEAN CELL HGB CONCETRATION (test code=MCHC) 32.8 gram/dL 33.0-36.0 RED CELL DISTRIBUTION WIDTH (test code=RDW) 12.4 % 11.6-16.2 RED CELL DISTRIBUTION WIDTH SD (test code=RDW-SD) 37.7 fL 37.0-51.0 PLATELET COUNT (test code=PLT) 311 K/mm3 150-450 MEAN PLATELET VOLUME (test code=MPV) 11.1 fL 6.7-11.0 IMMATURE GRANULOCYTE % (test code=IG%) 1.9 % 0.0-5.0 NUCLEATED RBC % (test code=NRBC%) 0.0 % 0-0 NEUTROPHIL # (test code=NT#) 21.33 K/mm3 1.8-7.7 IMMATURE GRANULOCYTE # (test code=IG#) 0.45 x10 3/uL 0-0.03 LYMPHOCYTE # (test code=LY#) 1.12 K/mm3 1.0-5.0 MONOCYTE # (test code=MO#) 1.11 K/mm3 0-0.8 EOSINOPHIL # (test code=EO#) 0.00 K/mm3 0.0-0.5 BASOPHIL # (test code=BA#) 0.07 K/mm3 0.0-0.2 NUCLEATED RBC # (test code=NRBC#) 0.00 K/mm3 0.0-0.1 MANUAL DIFF REQUIRED (test code=MDIFF) YES STAIN ACCEPTABILITY (test code=STN ACCEPTABLE) TOTAL CELLS COUNTED (test code=TCC) #CELLS SEGMENTED NEUTROPHILS (test code=SEG) % 39-69 LYMPHOCYTE (test code=LYMPH) % 25-55 MONOCYTE (test code=MON) % 0-10 EOSINOPHIL (test code=EOS) % 0.0-5.0 CABOT RINGS (test code=CAB) MORPHOLOGY COMMENT (test code=MOC) PLATELET ESTIMATE (test code=PLTEST) PLATELET MORPHOLOGY (test code=PLTMORPH) CBC W/MANUAL [id number] 05:10:00* Test Item Value Reference Range Comments WHITE BLOOD CELL (test code=WBC) 24.1 K/mm3 4.5-12.5 RED BLOOD CELL (test code=RBC) 3.04 mill/mm3 4.0-5.8 HEMOGLOBIN (test code=HGB) 8.4 gram/dL 13.0-17.5 HEMATOCRIT (test code=HCT) 25.6 % 42.0-52.0 MEAN CELL VOLUME (test code=MCV) 84.2 fL 80-98 MEAN CELL HGB (test code=MCH) 27.6 picogram 27.0-33.0 MEAN CELL HGB CONCETRATION (test code=MCHC) 32.8 gram/dL 33.0-36.0 RED CELL DISTRIBUTION WIDTH (test code=RDW) 12.4 % 11.6-16.2 RED CELL DISTRIBUTION WIDTH SD (test code=RDW-SD) 37.7 fL 37.0-51.0 PLATELET COUNT (test code=PLT) 311 K/mm3 150-450 MEAN PLATELET VOLUME (test code=MPV) 11.1 fL 6.7-11.0 IMMATURE GRANULOCYTE % (test code=IG%) 1.9 % 0.0-5.0 NUCLEATED RBC % (test code=NRBC%) 0.0 % 0-0 NEUTROPHIL # (test code=NT#) 21.33 K/mm3 1.8-7.7 IMMATURE GRANULOCYTE # (test code=IG#) 0.45 x10 3/uL 0-0.03 LYMPHOCYTE # (test code=LY#) 1.12 K/mm3 1.0-5.0 MONOCYTE # (test code=MO#) 1.11 K/mm3 0-0.8 EOSINOPHIL # (test code=EO#) 0.00 K/mm3 0.0-0.5 BASOPHIL # (test code=BA#) 0.07 K/mm3 0.0-0.2 NUCLEATED RBC # (test code=NRBC#) 0.00 K/mm3 0.0-0.1 MANUAL DIFF REQUIRED (test code=MDIFF) YES STAIN ACCEPTABILITY (test code=STN ACCEPTABLE) TOTAL CELLS COUNTED (test code=TCC) #CELLS SEGMENTED NEUTROPHILS (test code=SEG) % 39-69 LYMPHOCYTE (test code=LYMPH) % 25-55 MONOCYTE (test code=MON) % 0-10 EOSINOPHIL (test code=EOS) % 0.0-5.0 CABOT RINGS (test code=CAB) MORPHOLOGY COMMENT (test code=MOC) PLATELET ESTIMATE (test code=PLTEST) PLATELET MORPHOLOGY (test code=PLTMORPH) CBC W/MANUAL [id number] 05:10:00* Test Item Value Reference Range Comments WHITE BLOOD CELL (test code=WBC) 24.1 K/mm3 4.5-12.5 RED BLOOD CELL (test code=RBC) 3.04 mill/mm3 4.0-5.8 HEMOGLOBIN (test code=HGB) 8.4 gram/dL 13.0-17.5 HEMATOCRIT (test code=HCT) 25.6 % 42.0-52.0 MEAN CELL VOLUME (test code=MCV) 84.2 fL 80-98 MEAN CELL HGB (test code=MCH) 27.6 picogram 27.0-33.0 MEAN CELL HGB CONCETRATION (test code=MCHC) 32.8 gram/dL 33.0-36.0 RED CELL DISTRIBUTION WIDTH (test code=RDW) 12.4 % 11.6-16.2 RED CELL DISTRIBUTION WIDTH SD (test code=RDW-SD) 37.7 fL 37.0-51.0 PLATELET COUNT (test code=PLT) 311 K/mm3 150-450 MEAN PLATELET VOLUME (test code=MPV) 11.1 fL 6.7-11.0 IMMATURE GRANULOCYTE % (test code=IG%) 1.9 % 0.0-5.0 NUCLEATED RBC % (test code=NRBC%) 0.0 % 0-0 NEUTROPHIL # (test code=NT#) 21.33 K/mm3 1.8-7.7 IMMATURE GRANULOCYTE # (test code=IG#) 0.45 x10 3/uL 0-0.03 LYMPHOCYTE # (test code=LY#) 1.12 K/mm3 1.0-5.0 MONOCYTE # (test code=MO#) 1.11 K/mm3 0-0.8 EOSINOPHIL # (test code=EO#) 0.00 K/mm3 0.0-0.5 BASOPHIL # (test code=BA#) 0.07 K/mm3 0.0-0.2 NUCLEATED RBC # (test code=NRBC#) 0.00 K/mm3 0.0-0.1 MANUAL DIFF REQUIRED (test code=MDIFF) YES STAIN ACCEPTABILITY (test code=STN ACCEPTABLE) TOTAL CELLS COUNTED (test code=TCC) #CELLS SEGMENTED NEUTROPHILS (test code=SEG) % 39-69 LYMPHOCYTE (test code=LYMPH) % 25-55 MONOCYTE (test code=MON) % 0-10 EOSINOPHIL (test code=EOS) % 0.0-5.0 MORPHOLOGY COMMENT (test code=MOC) PLATELET ESTIMATE (test code=PLTEST) PLATELET MORPHOLOGY (test code=PLTMORPH) CBC W/MANUAL [id number] 05:10:00* Test Item Value Reference Range Comments WHITE BLOOD CELL (test code=WBC) 24.1 K/mm3 4.5-12.5 RED BLOOD CELL (test code=RBC) 3.04 mill/mm3 4.0-5.8 HEMOGLOBIN (test code=HGB) 8.4 gram/dL 13.0-17.5 HEMATOCRIT (test code=HCT) 25.6 % 42.0-52.0 MEAN CELL VOLUME (test code=MCV) 84.2 fL 80-98 MEAN CELL HGB (test code=MCH) 27.6 picogram 27.0-33.0 MEAN CELL HGB CONCETRATION (test code=MCHC) 32.8 gram/dL 33.0-36.0 RED CELL DISTRIBUTION WIDTH (test code=RDW) 12.4 % 11.6-16.2 RED CELL DISTRIBUTION WIDTH SD (test code=RDW-SD) 37.7 fL 37.0-51.0 PLATELET COUNT (test code=PLT) 311 K/mm3 150-450 MEAN PLATELET VOLUME (test code=MPV) 11.1 fL 6.7-11.0 IMMATURE GRANULOCYTE % (test code=IG%) 1.9 % 0.0-5.0 NUCLEATED RBC % (test code=NRBC%) 0.0 % 0-0 NEUTROPHIL # (test code=NT#) 21.33 K/mm3 1.8-7.7 IMMATURE GRANULOCYTE # (test code=IG#) 0.45 x10 3/uL 0-0.03 LYMPHOCYTE # (test code=LY#) 1.12 K/mm3 1.0-5.0 MONOCYTE # (test code=MO#) 1.11 K/mm3 0-0.8 EOSINOPHIL # (test code=EO#) 0.00 K/mm3 0.0-0.5 BASOPHIL # (test code=BA#) 0.07 K/mm3 0.0-0.2 NUCLEATED RBC # (test code=NRBC#) 0.00 K/mm3 0.0-0.1 MANUAL DIFF REQUIRED (test code=MDIFF) YES STAIN ACCEPTABILITY (test code=STN ACCEPTABLE) TOTAL CELLS COUNTED (test code=TCC) #CELLS SEGMENTED NEUTROPHILS (test code=SEG) % 39-69 LYMPHOCYTE (test code=LYMPH) % 25-55 MONOCYTE (test code=MON) % 0-10 MORPHOLOGY COMMENT (test code=MOC) PLATELET ESTIMATE (test code=PLTEST) PLATELET MORPHOLOGY (test code=PLTMORPH) CBC W/MANUAL [id number] 05:10:00* Test Item Value Reference Range Comments WHITE BLOOD CELL (test code=WBC) 24.1 K/mm3 4.5-12.5 RED BLOOD CELL (test code=RBC) 3.04 mill/mm3 4.0-5.8 HEMOGLOBIN (test code=HGB) 8.4 gram/dL 13.0-17.5 HEMATOCRIT (test code=HCT) 25.6 % 42.0-52.0 MEAN CELL VOLUME (test code=MCV) 84.2 fL 80-98 MEAN CELL HGB (test code=MCH) 27.6 picogram 27.0-33.0 MEAN CELL HGB CONCETRATION (test code=MCHC) 32.8 gram/dL 33.0-36.0 RED CELL DISTRIBUTION WIDTH (test code=RDW) 12.4 % 11.6-16.2 RED CELL DISTRIBUTION WIDTH SD (test code=RDW-SD) 37.7 fL 37.0-51.0 PLATELET COUNT (test code=PLT) 311 K/mm3 150-450 MEAN PLATELET VOLUME (test code=MPV) 11.1 fL 6.7-11.0 IMMATURE GRANULOCYTE % (test code=IG%) 1.9 % 0.0-5.0 NUCLEATED RBC % (test code=NRBC%) 0.0 % 0-0 NEUTROPHIL # (test code=NT#) 21.33 K/mm3 1.8-7.7 IMMATURE GRANULOCYTE # (test code=IG#) 0.45 x10 3/uL 0-0.03 LYMPHOCYTE # (test code=LY#) 1.12 K/mm3 1.0-5.0 MONOCYTE # (test code=MO#) 1.11 K/mm3 0-0.8 EOSINOPHIL # (test code=EO#) 0.00 K/mm3 0.0-0.5 BASOPHIL # (test code=BA#) 0.07 K/mm3 0.0-0.2 NUCLEATED RBC # (test code=NRBC#) 0.00 K/mm3 0.0-0.1 MANUAL DIFF REQUIRED (test code=MDIFF) YES STAIN ACCEPTABILITY (test code=STN ACCEPTABLE) TOTAL CELLS COUNTED (test code=TCC) #CELLS SEGMENTED NEUTROPHILS (test code=SEG) % 39-69 LYMPHOCYTE (test code=LYMPH) % 25-55 MONOCYTE (test code=MON) % 0-10 EOSINOPHIL (test code=EOS) % 0.0-5.0 CABOT RINGS (test code=CAB) MORPHOLOGY COMMENT (test code=MOC) PLATELET ESTIMATE (test code=PLTEST) PLATELET MORPHOLOGY (test code=PLTMORPH) [id number] 21:13:00* Test Item Value Reference Range Comments GLUBED (test code=GLUBED) 328 mg/dL 74-106 [facility] [id number] 16:43:00* Test Item Value Reference Range Comments GLUBED (test code=GLUBED) 397 mg/dL 74-106 Performed by certified control center operator at [facility] UR PROTEIN [id number] 14:50:00* Test Item Value Reference Range Comments UR PROTEIN RANDOM (test code=PROTU) 84.9 mg/dL 0.0-11.9 Protein levels may be falsely elevated in patients withelevated level of aminoglycoside antibiotics in CSF and inhighly concentrated urine specimens. If false elevation issuspected, contact lab for alternated testing technique. UR PROTEIN 24HR (test code=IGXZ40U) 1103.70 mg/24hr 40-150 UR VOLUME 24HR (test code=VOL) 1300 mL/24hrs 9186-2676 1300 TOTAL [id number] 11:02:00* Test Item Value Reference Range Comments GLUBED (test code=GLUBED) 437 mg/dL 74-106 Performed by certified control center operator at [facility] [id number] 11:02:00* Test Item Value Reference Range Comments GLUBED (test code=GLUBED) > 500 mg/dL 74-106 [facility] [id number] 08:36:00* Test Item Value Reference Range Comments GLUBED (test code=GLUBED) 425 mg/dL 74-106 [facility] B-TYPE NATRIURETIC [id number] 07:40:00* Test Item Value Reference Range Comments B-TYPE NATRIURETIC PEPTIDE (test code=BNP) 1528.05 pgram/mL 0-100 Has Patient received Natrecor? NOUR PROTEIN [id number] 07:30:00* Test Item Value Reference Range Comments UR PROTEIN RANDOM (test code=PROTU) 84.9 mg/dL 0.0-11.9 Protein levels may be falsely elevated in patients withelevated level of aminoglycoside antibiotics in CSF and inhighly concentrated urine specimens. If false elevation issuspected, contact lab for alternated testing technique. UR PROTEIN 24HR (test code=[id number]) mg/24hr 40-150 UR VOLUME 24HR (test code=VOL) mL/24hrs 2710-4285 1300 TOTAL VOLUMECBC W/MANUAL [id number] 07:20:00* Test Item Value Reference Range Comments WHITE BLOOD CELL (test code=WBC) 25.1 K/mm3 4.5-12.5 RED BLOOD CELL (test code=RBC) 3.27 mill/mm3 4.0-5.8 HEMOGLOBIN (test code=HGB) 9.2 gram/dL 13.0-17.5 HEMATOCRIT (test code=HCT) 26.9 % 42.0-52.0 MEAN CELL VOLUME (test code=MCV) 82.3 fL 80-98 MEAN CELL HGB (test code=MCH) 28.1 picogram 27.0-33.0 MEAN CELL HGB CONCETRATION (test code=MCHC) 34.2 gram/dL 33.0-36.0 RED CELL DISTRIBUTION WIDTH (test code=RDW) 12.5 % 11.6-16.2 RED CELL DISTRIBUTION WIDTH SD (test code=RDW-SD) 38.1 fL 37.0-51.0 PLATELET COUNT (test code=PLT) 290 K/mm3 150-450 MEAN PLATELET VOLUME (test code=MPV) 11.8 fL 6.7-11.0 IMMATURE GRANULOCYTE % (test code=IG%) 2.0 % 0.0-5.0 NUCLEATED RBC % (test code=NRBC%) 0.0 % 0-0 NEUTROPHIL # (test code=NT#) 23.51 K/mm3 1.8-7.7 IMMATURE GRANULOCYTE # (test code=IG#) 0.51 x10 3/uL 0-0.03 LYMPHOCYTE # (test code=LY#) 0.44 K/mm3 1.0-5.0 MONOCYTE # (test code=MO#) 0.62 K/mm3 0-0.8 EOSINOPHIL # (test code=EO#) 0.00 K/mm3 0.0-0.5 BASOPHIL # (test code=BA#) 0.05 K/mm3 0.0-0.2 NUCLEATED RBC # (test code=NRBC#) 0.00 K/mm3 0.0-0.1 MANUAL DIFF REQUIRED (test code=MDIFF) YES STAIN ACCEPTABILITY (test code=STN ACCEPTABLE) STAIN ACCEPTABLE TOTAL CELLS COUNTED (test code=TCC) 115 #CELLS SEGMENTED NEUTROPHILS (test code=SEG) 94.8 % 39-69 BAND NEUTROPHIL (test code=BAND) 0.9 % 0-10 LYMPHOCYTE (test code=LYMPH) 1.7 % 25-55 REACTIVE LYMPH (test code=RELYMPH) 0 % MONOCYTE (test code=MON) 2.6 % 0-10 EOSINOPHIL (test code=EOS) 0 % 0.0-5.0 BASOPHIL (test code=BASO) 0 % 0-1.0 METAMYELOCYTE (test code=META) 0 % 0-0 MYELOCYTE (test code=MYELO) 0 % 0.0-0.0 PROMYELOCYTE (test code=PROM) 0 % 0-0 POIKILOCYTOSIS (test code=POIK) 1+ ANISOCYTOSIS (test code=ANISO) 1+ MICROCYTOSIS (test code=MICR) 1+ CRENATED CELLS (test code=CREN) 1+ PLATELET ESTIMATE (test code=PLTEST) ADEQUATE PLATELET MORPHOLOGY (test code=PLTMORPH) NORMAL IMMATURE FORMS (test code=IMMAT) 0 % 0-0 [id number] 07:02:00* Test Item Value Reference Range Comments TROPONIN-I (test code=TROPI) 0.821 ng/mL 0-0.045 CBC W/MANUAL [id number] 07:01:00* Test Item Value Reference Range Comments WHITE BLOOD CELL (test code=WBC) 25.1 K/mm3 4.5-12.5 RED BLOOD CELL (test code=RBC) 3.27 mill/mm3 4.0-5.8 HEMOGLOBIN (test code=HGB) 9.2 gram/dL 13.0-17.5 HEMATOCRIT (test code=HCT) 26.9 % 42.0-52.0 MEAN CELL VOLUME (test code=MCV) 82.3 fL 80-98 MEAN CELL HGB (test code=MCH) 28.1 picogram 27.0-33.0 MEAN CELL HGB CONCETRATION (test code=MCHC) 34.2 gram/dL 33.0-36.0 RED CELL DISTRIBUTION WIDTH (test code=RDW) 12.5 % 11.6-16.2 RED CELL DISTRIBUTION WIDTH SD (test code=RDW-SD) 38.1 fL 37.0-51.0 PLATELET COUNT (test code=PLT) 290 K/mm3 150-450 MEAN PLATELET VOLUME (test code=MPV) 11.8 fL 6.7-11.0 IMMATURE GRANULOCYTE % (test code=IG%) 2.0 % 0.0-5.0 NUCLEATED RBC % (test code=NRBC%) 0.0 % 0-0 NEUTROPHIL # (test code=NT#) 23.51 K/mm3 1.8-7.7 IMMATURE GRANULOCYTE # (test code=IG#) 0.51 x10 3/uL 0-0.03 LYMPHOCYTE # (test code=LY#) 0.44 K/mm3 1.0-5.0 MONOCYTE # (test code=MO#) 0.62 K/mm3 0-0.8 EOSINOPHIL # (test code=EO#) 0.00 K/mm3 0.0-0.5 BASOPHIL # (test code=BA#) 0.05 K/mm3 0.0-0.2 NUCLEATED RBC # (test code=NRBC#) 0.00 K/mm3 0.0-0.1 MANUAL DIFF REQUIRED (test code=MDIFF) YES STAIN ACCEPTABILITY (test code=STN ACCEPTABLE) TOTAL CELLS COUNTED (test code=TCC) #CELLS SEGMENTED NEUTROPHILS (test code=SEG) % 39-69 LYMPHOCYTE (test code=LYMPH) % 25-55 MONOCYTE (test code=MON) % 0-10 EOSINOPHIL (test code=EOS) % 0.0-5.0 CABOT RINGS (test code=CAB) MORPHOLOGY COMMENT (test code=MOC) PLATELET ESTIMATE (test code=PLTEST) PLATELET MORPHOLOGY (test code=PLTMORPH) CBC W/MANUAL [id number] 07:01:00* Test Item Value Reference Range Comments WHITE BLOOD CELL (test code=WBC) 25.1 K/mm3 4.5-12.5 RED BLOOD CELL (test code=RBC) 3.27 mill/mm3 4.0-5.8 HEMOGLOBIN (test code=HGB) 9.2 gram/dL 13.0-17.5 HEMATOCRIT (test code=HCT) 26.9 % 42.0-52.0 MEAN CELL VOLUME (test code=MCV) 82.3 fL 80-98 MEAN CELL HGB (test code=MCH) 28.1 picogram 27.0-33.0 MEAN CELL HGB CONCETRATION (test code=MCHC) 34.2 gram/dL 33.0-36.0 RED CELL DISTRIBUTION WIDTH (test code=RDW) 12.5 % 11.6-16.2 RED CELL DISTRIBUTION WIDTH SD (test code=RDW-SD) 38.1 fL 37.0-51.0 PLATELET COUNT (test code=PLT) 290 K/mm3 150-450 MEAN PLATELET VOLUME (test code=MPV) 11.8 fL 6.7-11.0 IMMATURE GRANULOCYTE % (test code=IG%) 2.0 % 0.0-5.0 NUCLEATED RBC % (test code=NRBC%) 0.0 % 0-0 NEUTROPHIL # (test code=NT#) 23.51 K/mm3 1.8-7.7 IMMATURE GRANULOCYTE # (test code=IG#) 0.51 x10 3/uL 0-0.03 LYMPHOCYTE # (test code=LY#) 0.44 K/mm3 1.0-5.0 MONOCYTE # (test code=MO#) 0.62 K/mm3 0-0.8 EOSINOPHIL # (test code=EO#) 0.00 K/mm3 0.0-0.5 BASOPHIL # (test code=BA#) 0.05 K/mm3 0.0-0.2 NUCLEATED RBC # (test code=NRBC#) 0.00 K/mm3 0.0-0.1 MANUAL DIFF REQUIRED (test code=MDIFF) YES STAIN ACCEPTABILITY (test code=STN ACCEPTABLE) TOTAL CELLS COUNTED (test code=TCC) #CELLS SEGMENTED NEUTROPHILS (test code=SEG) % 39-69 LYMPHOCYTE (test code=LYMPH) % 25-55 MONOCYTE (test code=MON) % 0-10 EOSINOPHIL (test code=EOS) % 0.0-5.0 MORPHOLOGY COMMENT (test code=MOC) PLATELET ESTIMATE (test code=PLTEST) PLATELET MORPHOLOGY (test code=PLTMORPH) CBC W/MANUAL [id number] 07:01:00* Test Item Value Reference Range Comments WHITE BLOOD CELL (test code=WBC) 25.1 K/mm3 4.5-12.5 RED BLOOD CELL (test code=RBC) 3.27 mill/mm3 4.0-5.8 HEMOGLOBIN (test code=HGB) 9.2 gram/dL 13.0-17.5 HEMATOCRIT (test code=HCT) 26.9 % 42.0-52.0 MEAN CELL VOLUME (test code=MCV) 82.3 fL 80-98 MEAN CELL HGB (test code=MCH) 28.1 picogram 27.0-33.0 MEAN CELL HGB CONCETRATION (test code=MCHC) 34.2 gram/dL 33.0-36.0 RED CELL DISTRIBUTION WIDTH (test code=RDW) 12.5 % 11.6-16.2 RED CELL DISTRIBUTION WIDTH SD (test code=RDW-SD) 38.1 fL 37.0-51.0 PLATELET COUNT (test code=PLT) 290 K/mm3 150-450 MEAN PLATELET VOLUME (test code=MPV) 11.8 fL 6.7-11.0 IMMATURE GRANULOCYTE % (test code=IG%) 2.0 % 0.0-5.0 NUCLEATED RBC % (test code=NRBC%) 0.0 % 0-0 NEUTROPHIL # (test code=NT#) 23.51 K/mm3 1.8-7.7 IMMATURE GRANULOCYTE # (test code=IG#) 0.51 x10 3/uL 0-0.03 LYMPHOCYTE # (test code=LY#) 0.44 K/mm3 1.0-5.0 MONOCYTE # (test code=MO#) 0.62 K/mm3 0-0.8 EOSINOPHIL # (test code=EO#) 0.00 K/mm3 0.0-0.5 BASOPHIL # (test code=BA#) 0.05 K/mm3 0.0-0.2 NUCLEATED RBC # (test code=NRBC#) 0.00 K/mm3 0.0-0.1 MANUAL DIFF REQUIRED (test code=MDIFF) YES STAIN ACCEPTABILITY (test code=STN ACCEPTABLE) TOTAL CELLS COUNTED (test code=TCC) #CELLS SEGMENTED NEUTROPHILS (test code=SEG) % 39-69 LYMPHOCYTE (test code=LYMPH) % 25-55 MONOCYTE (test code=MON) % 0-10 MORPHOLOGY COMMENT (test code=MOC) PLATELET ESTIMATE (test code=PLTEST) PLATELET MORPHOLOGY (test code=PLTMORPH) CBC W/MANUAL [id number] 07:00:00* Test Item Value Reference Range Comments WHITE BLOOD CELL (test code=WBC) 25.1 K/mm3 4.5-12.5 RED BLOOD CELL (test code=RBC) 3.27 mill/mm3 4.0-5.8 HEMOGLOBIN (test code=HGB) 9.2 gram/dL 13.0-17.5 HEMATOCRIT (test code=HCT) 26.9 % 42.0-52.0 MEAN CELL VOLUME (test code=MCV) 82.3 fL 80-98 MEAN CELL HGB (test code=MCH) 28.1 picogram 27.0-33.0 MEAN CELL HGB CONCETRATION (test code=MCHC) 34.2 gram/dL 33.0-36.0 RED CELL DISTRIBUTION WIDTH (test code=RDW) 12.5 % 11.6-16.2 RED CELL DISTRIBUTION WIDTH SD (test code=RDW-SD) 38.1 fL 37.0-51.0 PLATELET COUNT (test code=PLT) 290 K/mm3 150-450 MEAN PLATELET VOLUME (test code=MPV) 11.8 fL 6.7-11.0 IMMATURE GRANULOCYTE % (test code=IG%) 2.0 % 0.0-5.0 NUCLEATED RBC % (test code=NRBC%) 0.0 % 0-0 NEUTROPHIL # (test code=NT#) 23.51 K/mm3 1.8-7.7 IMMATURE GRANULOCYTE # (test code=IG#) 0.51 x10 3/uL 0-0.03 LYMPHOCYTE # (test code=LY#) 0.44 K/mm3 1.0-5.0 MONOCYTE # (test code=MO#) 0.62 K/mm3 0-0.8 EOSINOPHIL # (test code=EO#) 0.00 K/mm3 0.0-0.5 BASOPHIL # (test code=BA#) 0.05 K/mm3 0.0-0.2 NUCLEATED RBC # (test code=NRBC#) 0.00 K/mm3 0.0-0.1 MANUAL DIFF REQUIRED (test code=MDIFF) YES STAIN ACCEPTABILITY (test code=STN ACCEPTABLE) TOTAL CELLS COUNTED (test code=TCC) #CELLS SEGMENTED NEUTROPHILS (test code=SEG) % 39-69 LYMPHOCYTE (test code=LYMPH) % 25-55 MONOCYTE (test code=MON) % 0-10 EOSINOPHIL (test code=EOS) % 0.0-5.0 CABOT RINGS (test code=CAB) MORPHOLOGY COMMENT (test code=MOC) PLATELET ESTIMATE (test code=PLTEST) PLATELET MORPHOLOGY (test code=PLTMORPH) CBC W/MANUAL [id number] 07:00:00* Test Item Value Reference Range Comments WHITE BLOOD CELL (test code=WBC) 25.1 K/mm3 4.5-12.5 RED BLOOD CELL (test code=RBC) 3.27 mill/mm3 4.0-5.8 HEMOGLOBIN (test code=HGB) 9.2 gram/dL 13.0-17.5 HEMATOCRIT (test code=HCT) 26.9 % 42.0-52.0 MEAN CELL VOLUME (test code=MCV) 82.3 fL 80-98 MEAN CELL HGB (test code=MCH) 28.1 picogram 27.0-33.0 MEAN CELL HGB CONCETRATION (test code=MCHC) 34.2 gram/dL 33.0-36.0 RED CELL DISTRIBUTION WIDTH (test code=RDW) 12.5 % 11.6-16.2 RED CELL DISTRIBUTION WIDTH SD (test code=RDW-SD) 38.1 fL 37.0-51.0 PLATELET COUNT (test code=PLT) 290 K/mm3 150-450 MEAN PLATELET VOLUME (test code=MPV) 11.8 fL 6.7-11.0 IMMATURE GRANULOCYTE % (test code=IG%) 2.0 % 0.0-5.0 NUCLEATED RBC % (test code=NRBC%) 0.0 % 0-0 NEUTROPHIL # (test code=NT#) 23.51 K/mm3 1.8-7.7 IMMATURE GRANULOCYTE # (test code=IG#) 0.51 x10 3/uL 0-0.03 LYMPHOCYTE # (test code=LY#) 0.44 K/mm3 1.0-5.0 MONOCYTE # (test code=MO#) 0.62 K/mm3 0-0.8 EOSINOPHIL # (test code=EO#) 0.00 K/mm3 0.0-0.5 BASOPHIL # (test code=BA#) 0.05 K/mm3 0.0-0.2 NUCLEATED RBC # (test code=NRBC#) 0.00 K/mm3 0.0-0.1 MANUAL DIFF REQUIRED (test code=MDIFF) YES STAIN ACCEPTABILITY (test code=STN ACCEPTABLE) TOTAL CELLS COUNTED (test code=TCC) #CELLS SEGMENTED NEUTROPHILS (test code=SEG) % 39-69 LYMPHOCYTE (test code=LYMPH) % 25-55 MONOCYTE (test code=MON) % 0-10 EOSINOPHIL (test code=EOS) % 0.0-5.0 CABOT RINGS (test code=CAB) MORPHOLOGY COMMENT (test code=MOC) PLATELET ESTIMATE (test code=PLTEST) PLATELET MORPHOLOGY (test code=PLTMORPH) BASIC METABOLIC [id number] 06:56:00* Test Item Value Reference Range Comments SODIUM (test code=NA) 131 mmol/L 136-145 POTASSIUM (test code=K) 3.8 mmol/L 3.5-5.1 CHLORIDE (test code=CL) 92.0 mmol/L 98-107 CARBON DIOXIDE (test code=CO2) 27.0 mmol/L 21-32 ANION GAP (test code=GAP) 15.8 10-20 GLUCOSE (test code=GLU) 413 mg/dL 74-106 BLOOD UREA NITROGEN (test code=BUN) 65 mg/dL 7-18 GLOMERULAR FILTRATION RATE (test code=GFR) 20 mL/min >=60 Estimated GFR by using Modified MDRD formula.Chronic kidney disease is defined as either kidney damageor GFR <60 mL/min/1.73 m2 for >3 months. CREATININE (test code=CREAT) 3.20 mg/dL 0.7-1.3 BUN/CREATININE RATIO (test code=BUN/CREA) 20.5 10-20 CALCIUM (test code=CA) 7.4 mg/dL 8.5-10.1 [id number] 06:56:00* Test Item Value Reference Range Comments PHOSPHORUS (test code=PHOS) 3.4 mg/dL 2.5-4.9 BASIC METABOLIC [id number] 06:45:00* Test Item Value Reference Range Comments SODIUM (test code=NA) 131 mmol/L 136-145 POTASSIUM (test code=K) 3.8 mmol/L 3.5-5.1 CHLORIDE (test code=CL) 92.0 mmol/L 98-107 CARBON DIOXIDE (test code=CO2) mmol/L 21-32 ANION GAP (test code=GAP) 10-20 GLUCOSE (test code=GLU) mg/dL 74-106 BLOOD UREA NITROGEN (test code=BUN) mg/dL 7-18 GLOMERULAR FILTRATION RATE (test code=GFR) mL/min >=60 CREATININE (test code=CREAT) mg/dL 0.7-1.3 BUN/CREATININE RATIO (test code=BUN/CREA) 10-20 CALCIUM (test code=CA) mg/dL 8.5-10.1 [id number] 06:45:00* Test Item Value Reference Range Comments PHOSPHORUS (test code=PHOS) mg/dL 2.5-4.9 UR CREATININE CLEARANCE [id number] 04:15:00* Test Item Value Reference Range Comments CREATININE CLEARANCE RESULT (test code=CREATCLR) 12 mL/min 100-120 CREATININE (test code=CREAT) 3.80 mg/dL 0.7-1.3 UR CREATININE RANDOM (test code=CREATU) 51.0 mg/dL 30-125 UR VOLUME 24HR (test code=VOL) 1300 mL/24hrs [id number] UR PROTEIN/CREATININE [id number] 04:15:00* Test Item Value Reference Range Comments UR PROTEIN RANDOM (test code=PROTU) 86.6 mg/dL 0.0-11.9 Protein levels may be falsely elevated in patients withelevated level of aminoglycoside antibiotics in CSF and inhighly concentrated urine specimens. If false elevation issuspected, contact lab for alternated testing technique. PROTEIN/CREATININE RATIO (test code=P/CRATIO) 1.70 RATIO 0.0-0.20 LACTIC [id number] 02:38:00* Test Item Value Reference Range Comments LACTIC ACID (test code=LACT) 1.2 mmol/L 0.4-1.9 [id number] 02:37:00* Test Item Value Reference Range Comments TROPONIN-I (test code=TROPI) 0.931 ng/mL 0-0.045 RESULT VERIFIED BY REPEAT ANALYSIS UR CREATININE CLEARANCE [id number] 01:34:00* Test Item Value Reference Range Comments CREATININE CLEARANCE RESULT (test code=CREATCLR) mL/min 100-120 CREATININE (test code=CREAT) 3.80 mg/dL 0.7-1.3 UR CREATININE RANDOM (test code=CREATU) 51.0 mg/dL 30-125 UR VOLUME 24HR (test code=VOL) mL/24hrs [id number] UR PROTEIN/CREATININE [id number] 01:34:00* Test Item Value Reference Range Comments UR PROTEIN RANDOM (test code=PROTU) 86.6 mg/dL 0.0-11.9 Protein levels may be falsely elevated in patients withelevated level of aminoglycoside antibiotics in CSF and inhighly concentrated urine specimens. If false elevation issuspected, contact lab for alternated testing technique. PROTEIN/CREATININE RATIO (test code=P/CRATIO) 1.70 RATIO 0.0-0.20 ARTERIAL BLOOD [id number] 00:08:00* Test Item Value Reference Range Comments ARTERIAL BLOOD GAS PH (test code=PHA) 7.49 7.35-7.45 ARTERIAL BLOOD GAS PCO2 (test code=PCO2A) 34.5 mm Hg 35-45 ARTERIAL BLOOD GAS PO2 (test code=PO2A) 92.4 mmHg 80-100 BICARBONATE TOTAL HCO3 (test code=HCO3) 25.6 mmol/L 23.0-27.0 BASE EXCESS (test code=KATH) 2.6 mmol/L -3.0-5.0 ABG O2 SATURATION (test code=SATA) 96.8 % 90.0-98.0 ABG TYPE (test code=TYPEA) Arterial FIO2 (test code=FIO2A) 100.0 ABG SITE (test code=SITEA) Lt RADIAL ARTERY MODIFIED ALLENS (test code=MODALL) Yes CHECK PERFORMED HEMATOCRIT (test code=HCT/ABG) 38 % 42-52 TOTAL HGB (test code=THB) 13.0 gram/dL 13.0-17.5 HGB O2 SAT (test code=HBOSAT) 96.1 % 94.00-98.00 CARBOXYHEMOGLOBIN (test code=HOHGBT) 0.3 %totalHg 0.5-1.5 Results called to and read back by Ramy 21:57 - 02/21/2019; by MATTHEW METHEMOGLOBIN (test code=METHGB) 0.4 % 0.0-1.50 O2 CONTENT (test code=O2CT) 17.7 % vol 18.0-22.0 CBC W/MANUAL [id number] 22:38:00* Test Item Value Reference Range Comments WHITE BLOOD CELL (test code=WBC) 23.6 K/mm3 4.5-12.5 RED BLOOD CELL (test code=RBC) 3.49 mill/mm3 4.0-5.8 HEMOGLOBIN (test code=HGB) 9.9 gram/dL 13.0-17.5 HEMATOCRIT (test code=HCT) 29.1 % 42.0-52.0 MEAN CELL VOLUME (test code=MCV) 83.4 fL 80-98 MEAN CELL HGB (test code=MCH) 28.4 picogram 27.0-33.0 MEAN CELL HGB CONCETRATION (test code=MCHC) 34.0 gram/dL 33.0-36.0 RED CELL DISTRIBUTION WIDTH (test code=RDW) 12.5 % 11.6-16.2 RED CELL DISTRIBUTION WIDTH SD (test code=RDW-SD) 38.0 fL 37.0-51.0 PLATELET COUNT (test code=PLT) 318 K/mm3 150-450 MEAN PLATELET VOLUME (test code=MPV) 11.1 fL 6.7-11.0 IMMATURE GRANULOCYTE % (test code=IG%) 2.0 % 0.0-5.0 NUCLEATED RBC % (test code=NRBC%) 0.0 % 0-0 NEUTROPHIL # (test code=NT#) 21.80 K/mm3 1.8-7.7 IMMATURE GRANULOCYTE # (test code=IG#) 0.48 x10 3/uL 0-0.03 LYMPHOCYTE # (test code=LY#) 0.45 K/mm3 1.0-5.0 MONOCYTE # (test code=MO#) 0.73 K/mm3 0-0.8 EOSINOPHIL # (test code=EO#) 0.00 K/mm3 0.0-0.5 BASOPHIL # (test code=BA#) 0.09 K/mm3 0.0-0.2 NUCLEATED RBC # (test code=NRBC#) 0.00 K/mm3 0.0-0.1 MANUAL DIFF REQUIRED (test code=MDIFF) YES STAIN ACCEPTABILITY (test code=STN ACCEPTABLE) STAIN ACCEPTABLE TOTAL CELLS COUNTED (test code=TCC) 115 #CELLS SEGMENTED NEUTROPHILS (test code=SEG) 92.9 % 39-69 BAND NEUTROPHIL (test code=BAND) 0.4 % 0-10 LYMPHOCYTE (test code=LYMPH) 1.8 % 25-55 REACTIVE LYMPH (test code=RELYMPH) 0 % MONOCYTE (test code=MON) 4.0 % 0-10 EOSINOPHIL (test code=EOS) 0 % 0.0-5.0 BASOPHIL (test code=BASO) 0.9 % 0-1.0 METAMYELOCYTE (test code=META) 0 % 0-0 MYELOCYTE (test code=MYELO) 0 % 0.0-0.0 PROMYELOCYTE (test code=PROM) 0 % 0-0 POLYCHROMASIA (test code=POLC) 1+ HYPOCHROMIA (test code=HYPO) 1+ POIKILOCYTOSIS (test code=POIK) 2+ MACROCYTOSIS (test code=MACR) 1+ CRENATED CELLS (test code=CREN) 1+ OVALOCYTES (test code=OVAL) 1+ PLATELET ESTIMATE (test code=PLTEST) ADEQUATE PLATELET MORPHOLOGY (test code=PLTMORPH) NORMAL IMMATURE FORMS (test code=IMMAT) 0 % 0-0 [id number] 22:13:00* Test Item Value Reference Range Comments TROPONIN-I (test code=TROPI) 0.860 ng/mL 0-0.045 Results called to [id number] by [facility] 02/21/19 2213Critical results verified and read back by Nurse? Y LACTIC [id number] 22:13:00* Test Item Value Reference Range Comments LACTIC ACID (test code=LACT) 2.9 mmol/L 0.4-1.9 Results called to [id number] by [facility] 02/21/19 2213Critical results verified and read back by Nurse? Y BASIC METABOLIC [id number] 22:02:00* Test Item Value Reference Range Comments SODIUM (test code=NA) 132 mmol/L 136-145 POTASSIUM (test code=K) 3.7 mmol/L 3.5-5.1 CHLORIDE (test code=CL) 95.0 mmol/L 98-107 CARBON DIOXIDE (test code=CO2) 24.0 mmol/L 21-32 ANION GAP (test code=GAP) 16.7 10-20 GLUCOSE (test code=GLU) 337 mg/dL 74-106 BLOOD UREA NITROGEN (test code=BUN) 61 mg/dL 7-18 GLOMERULAR FILTRATION RATE (test code=GFR) 19 mL/min >=60 Estimated GFR by using Modified MDRD formula.Chronic kidney disease is defined as either kidney damageor GFR <60 mL/min/1.73 m2 for >3 months. CREATININE (test code=CREAT) 3.30 mg/dL 0.7-1.3 BUN/CREATININE RATIO (test code=BUN/CREA) 18.7 10-20 CALCIUM (test code=CA) 7.5 mg/dL 8.5-10.1 [id number] 22:02:00* Test Item Value Reference Range Comments PHOSPHORUS (test code=PHOS) 2.8 mg/dL 2.5-4.9 [id number] 22:02:00* Test Item Value Reference Range Comments MAGNESIUM (test code=MAG) 1.9 mg/dL 1.8-2.4 BASIC METABOLIC [id number] 21:59:00* Test Item Value Reference Range Comments SODIUM (test code=NA) 132 mmol/L 136-145 POTASSIUM (test code=K) 3.7 mmol/L 3.5-5.1 CHLORIDE (test code=CL) 95.0 mmol/L 98-107 CARBON DIOXIDE (test code=CO2) mmol/L 21-32 ANION GAP (test code=GAP) 10-20 GLUCOSE (test code=GLU) mg/dL 74-106 BLOOD UREA NITROGEN (test code=BUN) mg/dL 7-18 GLOMERULAR FILTRATION RATE (test code=GFR) mL/min >=60 CREATININE (test code=CREAT) mg/dL 0.7-1.3 BUN/CREATININE RATIO (test code=BUN/CREA) 10-20 CALCIUM (test code=CA) mg/dL 8.5-10.1 [id number] 21:59:00* Test Item Value Reference Range Comments PHOSPHORUS (test code=PHOS) mg/dL 2.5-4.9 [id number] 21:59:00* Test Item Value Reference Range Comments MAGNESIUM (test code=MAG) mg/dL 1.8-2.4 CBC W/MANUAL [id number] 21:52:00* Test Item Value Reference Range Comments WHITE BLOOD CELL (test code=WBC) 23.6 K/mm3 4.5-12.5 RED BLOOD CELL (test code=RBC) 3.49 mill/mm3 4.0-5.8 HEMOGLOBIN (test code=HGB) 9.9 gram/dL 13.0-17.5 HEMATOCRIT (test code=HCT) 29.1 % 42.0-52.0 MEAN CELL VOLUME (test code=MCV) 83.4 fL 80-98 MEAN CELL HGB (test code=MCH) 28.4 picogram 27.0-33.0 MEAN CELL HGB CONCETRATION (test code=MCHC) 34.0 gram/dL 33.0-36.0 RED CELL DISTRIBUTION WIDTH (test code=RDW) 12.5 % 11.6-16.2 RED CELL DISTRIBUTION WIDTH SD (test code=RDW-SD) 38.0 fL 37.0-51.0 PLATELET COUNT (test code=PLT) 318 K/mm3 150-450 MEAN PLATELET VOLUME (test code=MPV) 11.1 fL 6.7-11.0 IMMATURE GRANULOCYTE % (test code=IG%) 2.0 % 0.0-5.0 NUCLEATED RBC % (test code=NRBC%) 0.0 % 0-0 NEUTROPHIL # (test code=NT#) 21.80 K/mm3 1.8-7.7 IMMATURE GRANULOCYTE # (test code=IG#) 0.48 x10 3/uL 0-0.03 LYMPHOCYTE # (test code=LY#) 0.45 K/mm3 1.0-5.0 MONOCYTE # (test code=MO#) 0.73 K/mm3 0-0.8 EOSINOPHIL # (test code=EO#) 0.00 K/mm3 0.0-0.5 BASOPHIL # (test code=BA#) 0.09 K/mm3 0.0-0.2 NUCLEATED RBC # (test code=NRBC#) 0.00 K/mm3 0.0-0.1 MANUAL DIFF REQUIRED (test code=MDIFF) YES STAIN ACCEPTABILITY (test code=STN ACCEPTABLE) TOTAL CELLS COUNTED (test code=TCC) #CELLS SEGMENTED NEUTROPHILS (test code=SEG) % 39-69 LYMPHOCYTE (test code=LYMPH) % 25-55 MONOCYTE (test code=MON) % 0-10 MORPHOLOGY COMMENT (test code=MOC) PLATELET ESTIMATE (test code=PLTEST) PLATELET MORPHOLOGY (test code=PLTMORPH) CBC W/MANUAL [id number] 21:48:00* Test Item Value Reference Range Comments WHITE BLOOD CELL (test code=WBC) 23.6 K/mm3 4.5-12.5 RED BLOOD CELL (test code=RBC) 3.49 mill/mm3 4.0-5.8 HEMOGLOBIN (test code=HGB) 9.9 gram/dL 13.0-17.5 HEMATOCRIT (test code=HCT) 29.1 % 42.0-52.0 MEAN CELL VOLUME (test code=MCV) 83.4 fL 80-98 MEAN CELL HGB (test code=MCH) 28.4 picogram 27.0-33.0 MEAN CELL HGB CONCETRATION (test code=MCHC) 34.0 gram/dL 33.0-36.0 RED CELL DISTRIBUTION WIDTH (test code=RDW) 12.5 % 11.6-16.2 RED CELL DISTRIBUTION WIDTH SD (test code=RDW-SD) 38.0 fL 37.0-51.0 PLATELET COUNT (test code=PLT) 318 K/mm3 150-450 MEAN PLATELET VOLUME (test code=MPV) 11.1 fL 6.7-11.0 IMMATURE GRANULOCYTE % (test code=IG%) 2.0 % 0.0-5.0 NUCLEATED RBC % (test code=NRBC%) 0.0 % 0-0 NEUTROPHIL # (test code=NT#) 21.80 K/mm3 1.8-7.7 IMMATURE GRANULOCYTE # (test code=IG#) 0.48 x10 3/uL 0-0.03 LYMPHOCYTE # (test code=LY#) 0.45 K/mm3 1.0-5.0 MONOCYTE # (test code=MO#) 0.73 K/mm3 0-0.8 EOSINOPHIL # (test code=EO#) 0.00 K/mm3 0.0-0.5 BASOPHIL # (test code=BA#) 0.09 K/mm3 0.0-0.2 NUCLEATED RBC # (test code=NRBC#) 0.00 K/mm3 0.0-0.1 MANUAL DIFF REQUIRED (test code=MDIFF) YES STAIN ACCEPTABILITY (test code=STN ACCEPTABLE) TOTAL CELLS COUNTED (test code=TCC) #CELLS SEGMENTED NEUTROPHILS (test code=SEG) % 39-69 LYMPHOCYTE (test code=LYMPH) % 25-55 MONOCYTE (test code=MON) % 0-10 EOSINOPHIL (test code=EOS) % 0.0-5.0 CABOT RINGS (test code=CAB) MORPHOLOGY COMMENT (test code=MOC) PLATELET ESTIMATE (test code=PLTEST) PLATELET MORPHOLOGY (test code=PLTMORPH) CBC W/MANUAL [id number] 21:48:00* Test Item Value Reference Range Comments WHITE BLOOD CELL (test code=WBC) 23.6 K/mm3 4.5-12.5 RED BLOOD CELL (test code=RBC) 3.49 mill/mm3 4.0-5.8 HEMOGLOBIN (test code=HGB) 9.9 gram/dL 13.0-17.5 HEMATOCRIT (test code=HCT) 29.1 % 42.0-52.0 MEAN CELL VOLUME (test code=MCV) 83.4 fL 80-98 MEAN CELL HGB (test code=MCH) 28.4 picogram 27.0-33.0 MEAN CELL HGB CONCETRATION (test code=MCHC) 34.0 gram/dL 33.0-36.0 RED CELL DISTRIBUTION WIDTH (test code=RDW) 12.5 % 11.6-16.2 RED CELL DISTRIBUTION WIDTH SD (test code=RDW-SD) 38.0 fL 37.0-51.0 PLATELET COUNT (test code=PLT) 318 K/mm3 150-450 MEAN PLATELET VOLUME (test code=MPV) 11.1 fL 6.7-11.0 IMMATURE GRANULOCYTE % (test code=IG%) 2.0 % 0.0-5.0 NUCLEATED RBC % (test code=NRBC%) 0.0 % 0-0 NEUTROPHIL # (test code=NT#) 21.80 K/mm3 1.8-7.7 IMMATURE GRANULOCYTE # (test code=IG#) 0.48 x10 3/uL 0-0.03 LYMPHOCYTE # (test code=LY#) 0.45 K/mm3 1.0-5.0 MONOCYTE # (test code=MO#) 0.73 K/mm3 0-0.8 EOSINOPHIL # (test code=EO#) 0.00 K/mm3 0.0-0.5 BASOPHIL # (test code=BA#) 0.09 K/mm3 0.0-0.2 NUCLEATED RBC # (test code=NRBC#) 0.00 K/mm3 0.0-0.1 MANUAL DIFF REQUIRED (test code=MDIFF) YES STAIN ACCEPTABILITY (test code=STN ACCEPTABLE) TOTAL CELLS COUNTED (test code=TCC) #CELLS SEGMENTED NEUTROPHILS (test code=SEG) % 39-69 LYMPHOCYTE (test code=LYMPH) % 25-55 MONOCYTE (test code=MON) % 0-10 EOSINOPHIL (test code=EOS) % 0.0-5.0 CABOT RINGS (test code=CAB) MORPHOLOGY COMMENT (test code=MOC) PLATELET ESTIMATE (test code=PLTEST) PLATELET MORPHOLOGY (test code=PLTMORPH) CBC W/MANUAL [id number] 21:48:00* Test Item Value Reference Range Comments WHITE BLOOD CELL (test code=WBC) 23.6 K/mm3 4.5-12.5 RED BLOOD CELL (test code=RBC) 3.49 mill/mm3 4.0-5.8 HEMOGLOBIN (test code=HGB) 9.9 gram/dL 13.0-17.5 HEMATOCRIT (test code=HCT) 29.1 % 42.0-52.0 MEAN CELL VOLUME (test code=MCV) 83.4 fL 80-98 MEAN CELL HGB (test code=MCH) 28.4 picogram 27.0-33.0 MEAN CELL HGB CONCETRATION (test code=MCHC) 34.0 gram/dL 33.0-36.0 RED CELL DISTRIBUTION WIDTH (test code=RDW) 12.5 % 11.6-16.2 RED CELL DISTRIBUTION WIDTH SD (test code=RDW-SD) 38.0 fL 37.0-51.0 PLATELET COUNT (test code=PLT) 318 K/mm3 150-450 MEAN PLATELET VOLUME (test code=MPV) 11.1 fL 6.7-11.0 IMMATURE GRANULOCYTE % (test code=IG%) 2.0 % 0.0-5.0 NUCLEATED RBC % (test code=NRBC%) 0.0 % 0-0 NEUTROPHIL # (test code=NT#) 21.80 K/mm3 1.8-7.7 IMMATURE GRANULOCYTE # (test code=IG#) 0.48 x10 3/uL 0-0.03 LYMPHOCYTE # (test code=LY#) 0.45 K/mm3 1.0-5.0 MONOCYTE # (test code=MO#) 0.73 K/mm3 0-0.8 EOSINOPHIL # (test code=EO#) 0.00 K/mm3 0.0-0.5 BASOPHIL # (test code=BA#) 0.09 K/mm3 0.0-0.2 NUCLEATED RBC # (test code=NRBC#) 0.00 K/mm3 0.0-0.1 MANUAL DIFF REQUIRED (test code=MDIFF) YES STAIN ACCEPTABILITY (test code=STN ACCEPTABLE) TOTAL CELLS COUNTED (test code=TCC) #CELLS SEGMENTED NEUTROPHILS (test code=SEG) % 39-69 LYMPHOCYTE (test code=LYMPH) % 25-55 MONOCYTE (test code=MON) % 0-10 EOSINOPHIL (test code=EOS) % 0.0-5.0 MORPHOLOGY COMMENT (test code=MOC) PLATELET ESTIMATE (test code=PLTEST) PLATELET MORPHOLOGY (test code=PLTMORPH) CBC W/MANUAL [id number] 21:48:00* Test Item Value Reference Range Comments WHITE BLOOD CELL (test code=WBC) 23.6 K/mm3 4.5-12.5 RED BLOOD CELL (test code=RBC) 3.49 mill/mm3 4.0-5.8 HEMOGLOBIN (test code=HGB) 9.9 gram/dL 13.0-17.5 HEMATOCRIT (test code=HCT) 29.1 % 42.0-52.0 MEAN CELL VOLUME (test code=MCV) 83.4 fL 80-98 MEAN CELL HGB (test code=MCH) 28.4 picogram 27.0-33.0 MEAN CELL HGB CONCETRATION (test code=MCHC) 34.0 gram/dL 33.0-36.0 RED CELL DISTRIBUTION WIDTH (test code=RDW) 12.5 % 11.6-16.2 RED CELL DISTRIBUTION WIDTH SD (test code=RDW-SD) 38.0 fL 37.0-51.0 PLATELET COUNT (test code=PLT) 318 K/mm3 150-450 MEAN PLATELET VOLUME (test code=MPV) 11.1 fL 6.7-11.0 IMMATURE GRANULOCYTE % (test code=IG%) 2.0 % 0.0-5.0 NUCLEATED RBC % (test code=NRBC%) 0.0 % 0-0 NEUTROPHIL # (test code=NT#) 21.80 K/mm3 1.8-7.7 IMMATURE GRANULOCYTE # (test code=IG#) 0.48 x10 3/uL 0-0.03 LYMPHOCYTE # (test code=LY#) 0.45 K/mm3 1.0-5.0 MONOCYTE # (test code=MO#) 0.73 K/mm3 0-0.8 EOSINOPHIL # (test code=EO#) 0.00 K/mm3 0.0-0.5 BASOPHIL # (test code=BA#) 0.09 K/mm3 0.0-0.2 NUCLEATED RBC # (test code=NRBC#) 0.00 K/mm3 0.0-0.1 MANUAL DIFF REQUIRED (test code=MDIFF) YES STAIN ACCEPTABILITY (test code=STN ACCEPTABLE) TOTAL CELLS COUNTED (test code=TCC) #CELLS SEGMENTED NEUTROPHILS (test code=SEG) % 39-69 LYMPHOCYTE (test code=LYMPH) % 25-55 MONOCYTE (test code=MON) % 0-10 EOSINOPHIL (test code=EOS) % 0.0-5.0 CABOT RINGS (test code=CAB) MORPHOLOGY COMMENT (test code=MOC) PLATELET ESTIMATE (test code=PLTEST) PLATELET MORPHOLOGY (test code=PLTMORPH) [id number] 21:43:00* Test Item Value Reference Range Comments GLUBED (test code=GLUBED) 335 mg/dL 74-106 Performed by certified control center operator at [facility] - XR CHEST 1 [id number] 21:40:00 FAX: Kim Maier MD [phone] [place]: B St: ADM Name: TORRES CAN [facility] : [birth year] 57 Age/S: 58/M [address] [facility] Unit #: [id number] Loc: V.[address] [place] [address] Phys: Kim Hopkins MD Acct: [id number] Dis Date: Status: ADM IN PHONE #: [phone] Exam Date: 02/21/20192135 FAX #: [phone] Reason: LOW O2 SATURATION EXAMS: CPT CODE: [id number] XR CHEST 1 V 52421 REASON FOR EXAM: LOW O2 SA TURATION EXAM ORDER DATE: 02/21/2019 12:00 AM Erendira paulino M.D.: Kim Hopkins MD PROCEDURE: - XR CHEST 1 V COMPARISON: 02/20/2019 FINDINGS: Portable AP frontal view of the chest obtained at 9:56 PM shows patchy airspace opacity in the right upper lobe. There is no evidence of effusion. The heart size is within normal limits. Pulmonary vasculatures are minimally congested. IMPRESSION: Minimal pulmonary venous congestion and atelectasis of the r ight upper lobe at 2140 Reported and signed by: Bala Jimenez M.D. CC: Kim Hopkins MD Technolog ist: NUSRATJOANNA IRWIN, RT(R) Trnscrd Date/Time/By : 02/21/2019 (2139) : By: JoseVTL Orig Print D/T: S: 02/21/2019 (214 3) PAGE 1 Signed Report [id number] 19:43:00* Test Item Value Reference Range Comments GLUBED (test code=GLUBED) 296 mg/dL 74-106 Performed by certified control center operator at [facility] [id number] 18:36:00* Test Item Value Reference Range Comments GLUBED (test code=GLUBED) 307 mg/dL 74-106 Performed by certified control center operator at [facility] [id number] 16:25:00* Test Item Value Reference Range Comments GLUBED (test code=GLUBED) 214 mg/dL 74-106 Performed by certified control center operator at [facility] - MRI LOW EXT W/O CONT [id number] 14:39:00 FAX: Ml Fan MSN [place]: B St: ADM FAX: Kim Maier MD [phone] Name: TORRES MAI [facility] : 1960 Age/S: 58/M [address] [facility] Unit #: [id number] Loc: [facility] [place] [address] Phys: Ml Fan MSN Acct: [id number] Dis Date: Status: ADM IN PHONE #: [phone] Exam Date: 02/21/2019 1153 FAX #: [phone] Reason: OM EXAMS: CPT CODE: [id number] MRI LOW EXT W/[place] [address] HISTORY: Soft tissue infection, gangrene TECHNIQUE: Sagittal T1, sagittal STIR, axial T1, axial T2 fat-sat, coronal T2, and coronal STIR sequences of the right foot were acquired without contrast. COMPARISON: Right foot radiographs 2 days prior FINDI NGS: There is increased T2 signal involving the proximal phalanx o f the fifth toe. Patches of increased T2 signal are also seen in the fifth metatarsal. These areas demonstrate corresponding T1 hypointensity, compatible with osteomyelitis. No abnormal signal is seen in the remaining metatarsals or the remaining toes. There is edema of the soft tissues al shaun the lateral and plantar aspect of the foot. There are also areas of ed edie along the dorsal aspect of the foot. The tarsal bones and the visualiz ed tibia and fibula are within normal limits. Normal limits IMPRESSION: Osteomyelitis involving the fifth toe and the fifth metatarsal of the right foot. The remaining bones of the foot and ankle are within normal limits. at 1439 Reported and signed by: Ken Marie MD CC: Ml Fan MSN; Kim Hopkins MD echnologist: Alexandro Pierre)(MR) Trnscrd Date /Time/By: 02/21/2019 (5811) : By: [email or web address] Orig Print D/T: S: 019 (3603) PAGE 1 Signed Report [id number] 13:52:00* Test Item Value Reference Range Comments GLUBED (test code=GLUBED) 321 mg/dL 74-106 Performed by certified control center operator at [facility] [id number] 13:22:00* Test Item Value Reference Range Comments PHOSPHORUS (test code=PHOS) 2.5 mg/dL 2.5-4.9 [id number] 08:23:00* Test Item Value Reference Range Comments GLUBED (test code=GLUBED) 362 mg/dL 74-106 Performed by certified control center operator at [facility] B-TYPE NATRIURETIC [id number] 06:31:00* Test Item Value Reference Range Comments B-TYPE NATRIURETIC PEPTIDE (test code=BNP) 1246.33 pgram/mL 0-100 COMPREHENSIVE METABOLIC [id number] 06:16:00* Test Item Value Reference Range Comments SODIUM (test code=NA) 129 mmol/L 136-145 POTASSIUM (test code=K) 3.2 mmol/L 3.5-5.1 CHLORIDE (test code=CL) 96.0 mmol/L 98-107 CARBON DIOXIDE (test code=CO2) 20.0 mmol/L 21-32 ANION GAP (test code=GAP) 16.2 10-20 GLUCOSE (test code=GLU) 313 mg/dL 74-106 BLOOD UREA NITROGEN (test code=BUN) 67 mg/dL 7-18 GLOMERULAR FILTRATION RATE (test code=GFR) 21 mL/min >=60 Estimated GFR by using Modified MDRD formula.Chronic kidney disease is defined as either kidney damageor GFR <60 mL/min/1.73 m2 for >3 months. CREATININE (test code=CREAT) 3.10 mg/dL 0.7-1.3 BUN/CREATININE RATIO (test code=BUN/CREA) 21.6 10-20 TOTAL PROTEIN (test code=PROT) 6.5 gram/dL 6.4-8.2 ALBUMIN (test code=ALB) 2.0 g/dL 3.4-5.0 GLOBULIN (test code=GLOB) 4.5 gram/dL 2.7-4.2 ALBUMIN/GLOBULIN RATIO (test code=A/G) 0.4 0.75-1.50 CALCIUM (test code=CA) 7.5 mg/dL 8.5-10.1 BILIRUBIN TOTAL (test code=BILT) 0.40 mg/dL 0.0-1.0 SGOT/AST (test code=AST) 143 IUnit/L 15-37 SGPT/ALT (test code=ALT) 149 IUnit/L 12-78 ALKALINE PHOSPHATASE TOTAL (test code=ALKP) 151 IUnit/L 45-117 Note change in reference range due to change in reagent. [id number] 06:16:00* Test Item Value Reference Range Comments PHOSPHORUS (test code=PHOS) 2.8 mg/dL 2.5-4.9 [id number] 06:16:00* Test Item Value Reference Range Comments MAGNESIUM (test code=MAG) 2.0 mg/dL 1.8-2.4 COMPREHENSIVE METABOLIC [id number] 06:06:00* Test Item Value Reference Range Comments SODIUM (test code=NA) 129 mmol/L 136-145 POTASSIUM (test code=K) 3.2 mmol/L 3.5-5.1 CHLORIDE (test code=CL) 96.0 mmol/L 98-107 CARBON DIOXIDE (test code=CO2) mmol/L 21-32 ANION GAP (test code=GAP) 10-20 GLUCOSE (test code=GLU) mg/dL 74-106 BLOOD UREA NITROGEN (test code=BUN) mg/dL 7-18 GLOMERULAR FILTRATION RATE (test code=GFR) mL/min >=60 CREATININE (test code=CREAT) mg/dL 0.7-1.3 BUN/CREATININE RATIO (test code=BUN/CREA) 10-20 TOTAL PROTEIN (test code=PROT) gram/dL 6.4-8.2 ALBUMIN (test code=ALB) g/dL 3.4-5.0 GLOBULIN (test code=GLOB) gram/dL 2.7-4.2 ALBUMIN/GLOBULIN RATIO (test code=A/G) 0.75-1.50 CALCIUM (test code=CA) mg/dL 8.5-10.1 BILIRUBIN TOTAL (test code=BILT) mg/dL 0.0-1.0 SGOT/AST (test code=AST) IUnit/L 15-37 SGPT/ALT (test code=ALT) IUnit/L 12-78 ALKALINE PHOSPHATASE TOTAL (test code=ALKP) IUnit/L 45-117 [id number] 06:06:00* Test Item Value Reference Range Comments PHOSPHORUS (test code=PHOS) mg/dL 2.5-4.9 [id number] 06:06:00* Test Item Value Reference Range Comments MAGNESIUM (test code=MAG) mg/dL 1.8-2.4 CBC W/AUTO [id number] 05:42:00* Test Item Value Reference Range Comments WHITE BLOOD CELL (test code=WBC) 19.5 K/mm3 4.5-12.5 RED BLOOD CELL (test code=RBC) 3.17 mill/mm3 4.0-5.8 HEMOGLOBIN (test code=HGB) 9.0 gram/dL 13.0-17.5 HEMATOCRIT (test code=HCT) 26.1 % 42.0-52.0 MEAN CELL VOLUME (test code=MCV) 82.3 fL 80-98 MEAN CELL HGB (test code=MCH) 28.4 picogram 27.0-33.0 MEAN CELL HGB CONCETRATION (test code=MCHC) 34.5 gram/dL 33.0-36.0 RED CELL DISTRIBUTION WIDTH (test code=RDW) 12.3 % 11.6-16.2 RED CELL DISTRIBUTION WIDTH SD (test code=RDW-SD) 37.4 fL 37.0-51.0 PLATELET COUNT (test code=PLT) 298 K/mm3 150-450 MEAN PLATELET VOLUME (test code=MPV) 11.2 fL 6.7-11.0 NEUTROPHIL % (test code=NT%) 88.7 % 39.0-69.0 IMMATURE GRANULOCYTE % (test code=IG%) 1.7 % 0.0-5.0 LYMPHOCYTE % (test code=LY%) 4.1 % 25.0-55.0 MONOCYTE % (test code=MO%) 5.2 % 0.0-10.0 EOSINOPHIL % (test code=EO%) 0.0 % 0.0-5.0 BASOPHIL % (test code=BA%) 0.3 % 0.0-1.0 NUCLEATED RBC % (test code=NRBC%) 0.0 % 0-0 NEUTROPHIL # (test code=NT#) 17.29 K/mm3 1.8-7.7 IMMATURE GRANULOCYTE # (test code=IG#) 0.34 x10 3/uL 0-0.03 LYMPHOCYTE # (test code=LY#) 0.79 K/mm3 1.0-5.0 MONOCYTE # (test code=MO#) 1.02 K/mm3 0-0.8 EOSINOPHIL # (test code=EO#) 0.00 K/mm3 0.0-0.5 BASOPHIL # (test code=BA#) 0.05 K/mm3 0.0-0.2 NUCLEATED RBC # (test code=NRBC#) 0.00 K/mm3 0.0-0.1 [id number] 21:32:00* Test Item Value Reference Range Comments GLUBED (test code=GLUBED) 258 mg/dL 74-106 Performed by certified control center operator at [facility] [id number] 16:34:00* Test Item Value Reference Range Comments GLUBED (test code=GLUBED) 210 mg/dL 74-106 Performed by certified control center operator at [facility] URIC [id number] 12:53:00* Test Item Value Reference Range Comments URIC ACID (test code=URIC) 10.9 mg/dL 2.6-7.2 PARATHYROID HORMONE [id number] 12:53:00* Test Item Value Reference Range Comments PARATHYROID HORMONE INTACT (test code=PARAI) 95.20 pgram/mL 8.4-88 URIC [id number] 12:34:00* Test Item Value Reference Range Comments URIC ACID (test code=URIC) 10.9 mg/dL 2.6-7.2 PARATHYROID HORMONE [id number] 12:34:00* Test Item Value Reference Range Comments PARATHYROID HORMONE INTACT (test code=PARAI) pgram/mL 8.4-88 [id number] 12:15:00* Test Item Value Reference Range Comments GLUBED (test code=GLUBED) 327 mg/dL 74-106 Performed by certified control center operator at [facility] - XR CHEST 1 [id number] 11:32:00 FAX: Kim Maier MD [phone] [place]: B St: [facility] FAX: Dago Houston MD [phone] Name: TORRES MAI [facility] : 1960 Age/S: 58/M [address] Unit #: [id number] Loc: [place] [address] Phys: Dago Gregory MD Acct: [id number] Dis Date: Status: ADM IN PHONE #: [phone] Exam Date: 02/20/2019 1051 FAX #: [phone] Reason: CHF EXAMS: CPT CODE: [id number] XR CHEST 1 V 25511 REASON FOR EXAM: CHF Exam Order Date: 02/20/2019 12:00 AM Ordering M.DCarmita: Dago Gregory MD PROCEDURE: - XR CHEST 1 V COMPARISON: Frontal chest x-ray July 31, 2014 FINDINGS: The lungs are clear. There is no pleural effusion or pneumothorax. Pulmonary vascularity is within normal limits. Cardiomediastinal silhouette is normal in size for technique. The mediastinal contours are within normal limits. There are deg enerative changes in the right shoulder. Musculoskeletal findings are othe rwise within normal limits. The visualized upper abdomen is within normal limits. IMPRESSION: No acute cardiopulmo nary process. at 1132 Reported and signed by: Ken Marie MD CC: Kim Hopkins MD; Dago Gregory MD Technologist: NYASIA PINEDA, RT(R); Danielle Buenrostro RT(R) Trnscrd Date/Time/By: 2018 (1132) : By: [email or web address] Orig Print D/T: S: 02/20/2019 (7126) PAGE 1 Signed Report [id number] 11:03:00* Test Item Value Reference Range Comments GLUBED (test code=GLUBED) 250 mg/dL 74-106 Performed by certified control center operator at [facility] - RETRO [id number] 10:43:00 [facility] 1960 Age/S: 58 / M [address] Unit #: [id number] Loc: [place] [address] Phys: Dago Gregory MD Acct: [id number] Dis Date: Status: ADM IN PHONE #: [phone] Exam Date: 02/20/2019 1042 FAX #: [phone] Reason: KEKE EXAMS: CPT CODE: [id number] US RETRO LTD 34912 REASON FOR EXAM: KEKE EXAM ORDER DATE: 02/20/2019 9:14 AM Attending M.D.: Dago Gregory MD PROCEDURE: - US RETRO LTD Comparison: Renal ultrasound October 09, 2014 FINDINGS: Right kidney: parenchyma echogenicity: Normal echogenicity size: 9.6 x 5.2 x 4.8 cm. stones: There are a few subcentimeter hyper echogenicities with posterior shadowing compatible with small stones. cysts/masses: none hydronephrosis: none Left kidney: parenchyma echogenicity: Normal echogenicity size: 10.2 x 5.1 x 5.3 cm. stones: There are a few subcentimeter hyper echogenicities with posterior shadowing compatible with small stones. cysts/masses: none hydronephrosis: none Urinary Bladder: Ureteral jets: Not visualized Intraluminal masses/debris: None Wall thickness: Normal Outpouching: None IMPRESSION: Nonobstructing renal stones bilaterally. No abnormal parenchymal echogenicity to suggest chronic medical renal disease. Urinary bladder is grossly within normal limits. at 1043 Reported and signed by: Ken Marie MD PAGE 1 Signed Report (CONTINUED) Name: TORRES MAI [facility] : 1960 Age/S: 58 / M [address] [facility] Unit #: [id number] Loc: [place] [address] Phys: Dago Gregory MD Acct: [id number] Dis Date: Status: ADM IN PHONE #: [phone] Exam Date: 02/20/2019 1042 FAX #: [phone] Reason: KEKE EXAMS: CPT CODE: [id number] US RETRO LTD [address] < Continued> CC: Kim Hopkins MD; Dago Gregory MD Technologist: TASH HOWARD RT(R),RDLA Trncab Date/Time: 02/20/2019 (1043) [email or web address] Orig Print D/T: S: 02/20/2019 (1041) Probe: PAGE 2 Signed Report URINALYSIS [id number] 07:02:00* Test Item Value Reference Range Comments UA COLOR (test code=COLU) YELLOW YELLOW UA APPEARANCE (test code=APPU) Cloudy CLEAR UA GLUCOSE DIPSTICK (test code=DGLUU) 50 (Trace) mg/dL NEGATIVE UA BILIRUBIN DIPSTICK (test code=BILU) NEGATIVE mg/dL NEGATIVE UA KETONE DIPSTICK (test code=KETU) NEGATIVE mg/dL NEGATIVE UA SPECIFIC GRAVITY (test code=SGU) 1.014 1.001-1.035 UA BLOOD DIPSTICK (test code=DAYNA) Negative mg/dL NEGATIVE UA PH DIPSTICK (test code=EMILIANA) 5.5 5.0-8.0 UA PROTEIN DIPSTICK (test code=PROU) 100 (2+) mg/dL NEGATIVE UA UROBILINIOGEN DIPSTICK (test code=URO) Normal mg/dL NEGATIVE UA NITRITE DIPSTICK (test code=GERI) NEGATIVE NEGATIVE UA LEUKOCYTE ESTERASE W REFLEX (test code=LEUUR) NEGATIVE Heidi/uL NEGATIVE UA WBC (test code=WBCU) 6-10 per HPF 0-5 UA RBC (test code=RBCU) 0-2 #/HPF 0-5 UA EPITHELIAL CELLS (test code=EPIU) FEW per HPF FEW UA BACTERIA (test code=BACU) MANY #/HPF NONE UA HYALINE CAST (test code=HYALU) 3-5 #/LPF 0-5 Urine Source? Clean CatchUR NA,[id number] 07:02:00* Test Item Value Reference Range Comments UR NA,RANDOM (test code=ELADIA) 13 mmol/L 20-110 Urine Source? Clean CatchUR CHLORIDE [id number] 07:02:00* Test Item Value Reference Range Comments UR CHLORIDE RANDOM (test code=CLU) < 10 mEq/L Urine Source? Clean CatchUR OSMOLALITY [id number] 07:02:00* Test Item Value Reference Range Comments UR OSMOLALITY RANDOM (test code=OSMOU) 357 mOsm/kg 48-962 Urine Source? Clean CatchURINALYSIS [id number] 05:53:00* Test Item Value Reference Range Comments UA COLOR (test code=COLU) YELLOW YELLOW UA APPEARANCE (test code=APPU) Cloudy CLEAR UA GLUCOSE DIPSTICK (test code=DGLUU) 50 (Trace) mg/dL NEGATIVE UA BILIRUBIN DIPSTICK (test code=BILU) NEGATIVE mg/dL NEGATIVE UA KETONE DIPSTICK (test code=KETU) NEGATIVE mg/dL NEGATIVE UA SPECIFIC GRAVITY (test code=SGU) 1.014 1.001-1.035 UA BLOOD DIPSTICK (test code=DAYNA) Negative mg/dL NEGATIVE UA PH DIPSTICK (test code=EMILIANA) 5.5 5.0-8.0 UA PROTEIN DIPSTICK (test code=PROU) 100 (2+) mg/dL NEGATIVE UA UROBILINIOGEN DIPSTICK (test code=URO) Normal mg/dL NEGATIVE UA NITRITE DIPSTICK (test code=GERI) NEGATIVE NEGATIVE UA LEUKOCYTE ESTERASE W REFLEX (test code=LEUUR) NEGATIVE Heidi/uL NEGATIVE UA WBC (test code=WBCU) 6-10 per HPF 0-5 UA RBC (test code=RBCU) 0-2 #/HPF 0-5 UA EPITHELIAL CELLS (test code=EPIU) FEW per HPF FEW UA BACTERIA (test code=BACU) MANY #/HPF NONE UA HYALINE CAST (test code=HYALU) 3-5 #/LPF 0-5 Urine Source? Clean CatchUR NA,[id number] 05:53:00* Test Item Value Reference Range Comments UR NA,RANDOM (test code=ELADIA) 13 mmol/L 20-110 Urine Source? Clean CatchUR CHLORIDE [id number] 05:53:00* Test Item Value Reference Range Comments UR CHLORIDE RANDOM (test code=CLU) < 10 mEq/L Urine Source? Clean CatchUR OSMOLALITY [id number] 05:53:00* Test Item Value Reference Range Comments UR OSMOLALITY RANDOM (test code=OSMOU) mOsm/kg 48-962 Urine Source? Clean CatchURINALYSIS [id number] 05:44:00* Test Item Value Reference Range Comments UA COLOR (test code=COLU) YELLOW YELLOW UA APPEARANCE (test code=APPU) Cloudy CLEAR UA GLUCOSE DIPSTICK (test code=DGLUU) 50 (Trace) mg/dL NEGATIVE UA BILIRUBIN DIPSTICK (test code=BILU) NEGATIVE mg/dL NEGATIVE UA KETONE DIPSTICK (test code=KETU) NEGATIVE mg/dL NEGATIVE UA SPECIFIC GRAVITY (test code=SGU) 1.014 1.001-1.035 UA BLOOD DIPSTICK (test code=DAYNA) Negative mg/dL NEGATIVE UA PH DIPSTICK (test code=EMILIANA) 5.5 5.0-8.0 UA PROTEIN DIPSTICK (test code=PROU) 100 (2+) mg/dL NEGATIVE UA UROBILINIOGEN DIPSTICK (test code=URO) Normal mg/dL NEGATIVE UA NITRITE DIPSTICK (test code=GERI) NEGATIVE NEGATIVE UA LEUKOCYTE ESTERASE W REFLEX (test code=LEUUR) NEGATIVE Heidi/uL NEGATIVE UA WBC (test code=WBCU) 6-10 per HPF 0-5 UA RBC (test code=RBCU) 0-2 #/HPF 0-5 UA EPITHELIAL CELLS (test code=EPIU) FEW per HPF FEW UA BACTERIA (test code=BACU) MANY #/HPF NONE UA HYALINE CAST (test code=HYALU) 3-5 #/LPF 0-5 Urine Source? Clean CatchUR NA,[id number] 05:44:00* Test Item Value Reference Range Comments UR NA,RANDOM (test code=ELADIA) mmol/L 20-110 Urine Source? Clean CatchUR CHLORIDE [id number] 05:44:00* Test Item Value Reference Range Comments UR CHLORIDE RANDOM (test code=CLU) mEq/L Urine Source? Clean CatchUR OSMOLALITY [id number] 05:44:00* Test Item Value Reference Range Comments UR OSMOLALITY RANDOM (test code=OSMOU) mOsm/kg 48-962 Urine Source? Clean CatchBASIC METABOLIC [id number] 03:27:00* Test Item Value Reference Range Comments SODIUM (test code=NA) 133 mmol/L 136-145 RESULT VERIFIED BY REPEAT ANALYSIS POTASSIUM (test code=K) 4.1 mmol/L 3.5-5.1 CHLORIDE (test code=CL) 100.0 mmol/L 98-107 CARBON DIOXIDE (test code=CO2) 17.0 mmol/L 21-32 ANION GAP (test code=GAP) 20.1 10-20 GLUCOSE (test code=GLU) 232 mg/dL 74-106 BLOOD UREA NITROGEN (test code=BUN) 85 mg/dL 7-18 GLOMERULAR FILTRATION RATE (test code=GFR) 17 mL/min >=60 Estimated GFR by using Modified MDRD formula.Chronic kidney disease is defined as either kidney damageor GFR <60 mL/min/1.73 m2 for >3 months. CREATININE (test code=CREAT) 3.70 mg/dL 0.7-1.3 BUN/CREATININE RATIO (test code=BUN/CREA) 23.1 10-20 CALCIUM (test code=CA) 7.9 mg/dL 8.5-10.1 LIPID PROFILE (CORONARY RISK)2019-02-20 03:27:00* Test Item Value Reference Range Comments TRIGLYCERIDES (test code=TRIG) 154 mg/dL 20-150 CHOLESTEROL (test code=CHOL) 108 mg/dL 0-200 CHOLESTEROL/HDL RATIO (test code=CHOLHDL) 6.0 RATIO 0-4.9 RISK ASSOCIATED WITH CHOL/HDL RATIOS: Risk Male Female1/2 AVERAGE 3.43 3.27AVERAGE 4.97 4.442X AVERAGE 9.55 7.053X AVERAGE 23.39 11.04 REFERENCE VALUE IS RELATED TO RISK LEVELS ASRECOMMENDED BY THE SETH. HEART, LUNG, AND BLOOD INST. HDL CHOLESTEROL (test code=HDL) 18 mg/dL 40-60 LIPOPROTEIN LDL (test code=LDL) 64 mg/dL 100-129 Reference Interval: mg/dL mmol/L Optimal <100 <2.6Near/above optimal 100-129 2.6- 3.3Borderline High 130-159 3.4-4.1High 160-189 4.1-4.9Very High >=190 >=4.9=========This LDL result is a direct measurement.========= CBC W/MANUAL [id number] 03:19:00* Test Item Value Reference Range Comments WHITE BLOOD CELL (test code=WBC) 25.6 K/mm3 4.5-12.5 RED BLOOD CELL (test code=RBC) 3.44 mill/mm3 4.0-5.8 HEMOGLOBIN (test code=HGB) 9.8 gram/dL 13.0-17.5 HEMATOCRIT (test code=HCT) 28.5 % 42.0-52.0 MEAN CELL VOLUME (test code=MCV) 82.8 fL 80-98 MEAN CELL HGB (test code=MCH) 28.5 picogram 27.0-33.0 MEAN CELL HGB CONCETRATION (test code=MCHC) 34.4 gram/dL 33.0-36.0 RED CELL DISTRIBUTION WIDTH (test code=RDW) 12.4 % 11.6-16.2 RED CELL DISTRIBUTION WIDTH SD (test code=RDW-SD) 37.4 fL 37.0-51.0 PLATELET COUNT (test code=PLT) 328 K/mm3 150-450 MEAN PLATELET VOLUME (test code=MPV) 10.6 fL 6.7-11.0 IMMATURE GRANULOCYTE % (test code=IG%) 1.9 % 0.0-5.0 NUCLEATED RBC % (test code=NRBC%) 0.0 % 0-0 NEUTROPHIL # (test code=NT#) 22.51 K/mm3 1.8-7.7 IMMATURE GRANULOCYTE # (test code=IG#) 0.49 x10 3/uL 0-0.03 LYMPHOCYTE # (test code=LY#) 1.06 K/mm3 1.0-5.0 MONOCYTE # (test code=MO#) 1.45 K/mm3 0-0.8 EOSINOPHIL # (test code=EO#) 0.00 K/mm3 0.0-0.5 BASOPHIL # (test code=BA#) 0.08 K/mm3 0.0-0.2 NUCLEATED RBC # (test code=NRBC#) 0.00 K/mm3 0.0-0.1 MANUAL DIFF REQUIRED (test code=MDIFF) YES STAIN ACCEPTABILITY (test code=STN ACCEPTABLE) STAIN ACCEPTABLE TOTAL CELLS COUNTED (test code=TCC) 115 #CELLS SEGMENTED NEUTROPHILS (test code=SEG) 90.4 % 39-69 BAND NEUTROPHIL (test code=BAND) 0 % 0-10 LYMPHOCYTE (test code=LYMPH) 3.5 % 25-55 REACTIVE LYMPH (test code=RELYMPH) 0 % MONOCYTE (test code=MON) 6.1 % 0-10 EOSINOPHIL (test code=EOS) 0 % 0.0-5.0 BASOPHIL (test code=BASO) 0 % 0-1.0 METAMYELOCYTE (test code=META) 0 % 0-0 MYELOCYTE (test code=MYELO) 0 % 0.0-0.0 PROMYELOCYTE (test code=PROM) 0 % 0-0 POIKILOCYTOSIS (test code=POIK) 2+ ANISOCYTOSIS (test code=ANISO) 1+ MICROCYTOSIS (test code=MICR) 1+ TORI CELLS (test code=TORI) 2+ NONE PLATELET ESTIMATE (test code=PLTEST) ADEQUATE PLATELET MORPHOLOGY (test code=PLTMORPH) NORMAL IMMATURE FORMS (test code=IMMAT) 0 % 0-0 CBC W/MANUAL [id number] 02:27:00* Test Item Value Reference Range Comments WHITE BLOOD CELL (test code=WBC) 25.6 K/mm3 4.5-12.5 RED BLOOD CELL (test code=RBC) 3.44 mill/mm3 4.0-5.8 HEMOGLOBIN (test code=HGB) 9.8 gram/dL 13.0-17.5 HEMATOCRIT (test code=HCT) 28.5 % 42.0-52.0 MEAN CELL VOLUME (test code=MCV) 82.8 fL 80-98 MEAN CELL HGB (test code=MCH) 28.5 picogram 27.0-33.0 MEAN CELL HGB CONCETRATION (test code=MCHC) 34.4 gram/dL 33.0-36.0 RED CELL DISTRIBUTION WIDTH (test code=RDW) 12.4 % 11.6-16.2 RED CELL DISTRIBUTION WIDTH SD (test code=RDW-SD) 37.4 fL 37.0-51.0 PLATELET COUNT (test code=PLT) 328 K/mm3 150-450 MEAN PLATELET VOLUME (test code=MPV) 10.6 fL 6.7-11.0 IMMATURE GRANULOCYTE % (test code=IG%) 1.9 % 0.0-5.0 NUCLEATED RBC % (test code=NRBC%) 0.0 % 0-0 NEUTROPHIL # (test code=NT#) 22.51 K/mm3 1.8-7.7 IMMATURE GRANULOCYTE # (test code=IG#) 0.49 x10 3/uL 0-0.03 LYMPHOCYTE # (test code=LY#) 1.06 K/mm3 1.0-5.0 MONOCYTE # (test code=MO#) 1.45 K/mm3 0-0.8 EOSINOPHIL # (test code=EO#) 0.00 K/mm3 0.0-0.5 BASOPHIL # (test code=BA#) 0.08 K/mm3 0.0-0.2 NUCLEATED RBC # (test code=NRBC#) 0.00 K/mm3 0.0-0.1 MANUAL DIFF REQUIRED (test code=MDIFF) YES STAIN ACCEPTABILITY (test code=STN ACCEPTABLE) TOTAL CELLS COUNTED (test code=TCC) #CELLS SEGMENTED NEUTROPHILS (test code=SEG) % 39-69 LYMPHOCYTE (test code=LYMPH) % 25-55 MONOCYTE (test code=MON) % 0-10 EOSINOPHIL (test code=EOS) % 0.0-5.0 CABOT RINGS (test code=CAB) MORPHOLOGY COMMENT (test code=MOC) PLATELET ESTIMATE (test code=PLTEST) PLATELET MORPHOLOGY (test code=PLTMORPH) CBC W/MANUAL [id number] 02:27:00* Test Item Value Reference Range Comments WHITE BLOOD CELL (test code=WBC) 25.6 K/mm3 4.5-12.5 RED BLOOD CELL (test code=RBC) 3.44 mill/mm3 4.0-5.8 HEMOGLOBIN (test code=HGB) 9.8 gram/dL 13.0-17.5 HEMATOCRIT (test code=HCT) 28.5 % 42.0-52.0 MEAN CELL VOLUME (test code=MCV) 82.8 fL 80-98 MEAN CELL HGB (test code=MCH) 28.5 picogram 27.0-33.0 MEAN CELL HGB CONCETRATION (test code=MCHC) 34.4 gram/dL 33.0-36.0 RED CELL DISTRIBUTION WIDTH (test code=RDW) 12.4 % 11.6-16.2 RED CELL DISTRIBUTION WIDTH SD (test code=RDW-SD) 37.4 fL 37.0-51.0 PLATELET COUNT (test code=PLT) 328 K/mm3 150-450 MEAN PLATELET VOLUME (test code=MPV) 10.6 fL 6.7-11.0 IMMATURE GRANULOCYTE % (test code=IG%) 1.9 % 0.0-5.0 NUCLEATED RBC % (test code=NRBC%) 0.0 % 0-0 NEUTROPHIL # (test code=NT#) 22.51 K/mm3 1.8-7.7 IMMATURE GRANULOCYTE # (test code=IG#) 0.49 x10 3/uL 0-0.03 LYMPHOCYTE # (test code=LY#) 1.06 K/mm3 1.0-5.0 MONOCYTE # (test code=MO#) 1.45 K/mm3 0-0.8 EOSINOPHIL # (test code=EO#) 0.00 K/mm3 0.0-0.5 BASOPHIL # (test code=BA#) 0.08 K/mm3 0.0-0.2 NUCLEATED RBC # (test code=NRBC#) 0.00 K/mm3 0.0-0.1 MANUAL DIFF REQUIRED (test code=MDIFF) YES STAIN ACCEPTABILITY (test code=STN ACCEPTABLE) TOTAL CELLS COUNTED (test code=TCC) #CELLS SEGMENTED NEUTROPHILS (test code=SEG) % 39-69 LYMPHOCYTE (test code=LYMPH) % 25-55 MONOCYTE (test code=MON) % 0-10 EOSINOPHIL (test code=EOS) % 0.0-5.0 CABOT RINGS (test code=CAB) MORPHOLOGY COMMENT (test code=MOC) PLATELET ESTIMATE (test code=PLTEST) PLATELET MORPHOLOGY (test code=PLTMORPH) CBC W/MANUAL [id number] 02:27:00* Test Item Value Reference Range Comments WHITE BLOOD CELL (test code=WBC) 25.6 K/mm3 4.5-12.5 RED BLOOD CELL (test code=RBC) 3.44 mill/mm3 4.0-5.8 HEMOGLOBIN (test code=HGB) 9.8 gram/dL 13.0-17.5 HEMATOCRIT (test code=HCT) 28.5 % 42.0-52.0 MEAN CELL VOLUME (test code=MCV) 82.8 fL 80-98 MEAN CELL HGB (test code=MCH) 28.5 picogram 27.0-33.0 MEAN CELL HGB CONCETRATION (test code=MCHC) 34.4 gram/dL 33.0-36.0 RED CELL DISTRIBUTION WIDTH (test code=RDW) 12.4 % 11.6-16.2 RED CELL DISTRIBUTION WIDTH SD (test code=RDW-SD) 37.4 fL 37.0-51.0 PLATELET COUNT (test code=PLT) 328 K/mm3 150-450 MEAN PLATELET VOLUME (test code=MPV) 10.6 fL 6.7-11.0 IMMATURE GRANULOCYTE % (test code=IG%) 1.9 % 0.0-5.0 NUCLEATED RBC % (test code=NRBC%) 0.0 % 0-0 NEUTROPHIL # (test code=NT#) 22.51 K/mm3 1.8-7.7 IMMATURE GRANULOCYTE # (test code=IG#) 0.49 x10 3/uL 0-0.03 LYMPHOCYTE # (test code=LY#) 1.06 K/mm3 1.0-5.0 MONOCYTE # (test code=MO#) 1.45 K/mm3 0-0.8 EOSINOPHIL # (test code=EO#) 0.00 K/mm3 0.0-0.5 BASOPHIL # (test code=BA#) 0.08 K/mm3 0.0-0.2 NUCLEATED RBC # (test code=NRBC#) 0.00 K/mm3 0.0-0.1 MANUAL DIFF REQUIRED (test code=MDIFF) YES STAIN ACCEPTABILITY (test code=STN ACCEPTABLE) TOTAL CELLS COUNTED (test code=TCC) #CELLS SEGMENTED NEUTROPHILS (test code=SEG) % 39-69 LYMPHOCYTE (test code=LYMPH) % 25-55 MONOCYTE (test code=MON) % 0-10 EOSINOPHIL (test code=EOS) % 0.0-5.0 MORPHOLOGY COMMENT (test code=MOC) PLATELET ESTIMATE (test code=PLTEST) PLATELET MORPHOLOGY (test code=PLTMORPH) CBC W/MANUAL [id number] 02:27:00* Test Item Value Reference Range Comments WHITE BLOOD CELL (test code=WBC) 25.6 K/mm3 4.5-12.5 RED BLOOD CELL (test code=RBC) 3.44 mill/mm3 4.0-5.8 HEMOGLOBIN (test code=HGB) 9.8 gram/dL 13.0-17.5 HEMATOCRIT (test code=HCT) 28.5 % 42.0-52.0 MEAN CELL VOLUME (test code=MCV) 82.8 fL 80-98 MEAN CELL HGB (test code=MCH) 28.5 picogram 27.0-33.0 MEAN CELL HGB CONCETRATION (test code=MCHC) 34.4 gram/dL 33.0-36.0 RED CELL DISTRIBUTION WIDTH (test code=RDW) 12.4 % 11.6-16.2 RED CELL DISTRIBUTION WIDTH SD (test code=RDW-SD) 37.4 fL 37.0-51.0 PLATELET COUNT (test code=PLT) 328 K/mm3 150-450 MEAN PLATELET VOLUME (test code=MPV) 10.6 fL 6.7-11.0 IMMATURE GRANULOCYTE % (test code=IG%) 1.9 % 0.0-5.0 NUCLEATED RBC % (test code=NRBC%) 0.0 % 0-0 NEUTROPHIL # (test code=NT#) 22.51 K/mm3 1.8-7.7 IMMATURE GRANULOCYTE # (test code=IG#) 0.49 x10 3/uL 0-0.03 LYMPHOCYTE # (test code=LY#) 1.06 K/mm3 1.0-5.0 MONOCYTE # (test code=MO#) 1.45 K/mm3 0-0.8 EOSINOPHIL # (test code=EO#) 0.00 K/mm3 0.0-0.5 BASOPHIL # (test code=BA#) 0.08 K/mm3 0.0-0.2 NUCLEATED RBC # (test code=NRBC#) 0.00 K/mm3 0.0-0.1 MANUAL DIFF REQUIRED (test code=MDIFF) YES STAIN ACCEPTABILITY (test code=STN ACCEPTABLE) TOTAL CELLS COUNTED (test code=TCC) #CELLS SEGMENTED NEUTROPHILS (test code=SEG) % 39-69 LYMPHOCYTE (test code=LYMPH) % 25-55 MONOCYTE (test code=MON) % 0-10 MORPHOLOGY COMMENT (test code=MOC) PLATELET ESTIMATE (test code=PLTEST) PLATELET MORPHOLOGY (test code=PLTMORPH) CBC W/MANUAL [id number] 02:27:00* Test Item Value Reference Range Comments WHITE BLOOD CELL (test code=WBC) 25.6 K/mm3 4.5-12.5 RED BLOOD CELL (test code=RBC) 3.44 mill/mm3 4.0-5.8 HEMOGLOBIN (test code=HGB) 9.8 gram/dL 13.0-17.5 HEMATOCRIT (test code=HCT) 28.5 % 42.0-52.0 MEAN CELL VOLUME (test code=MCV) 82.8 fL 80-98 MEAN CELL HGB (test code=MCH) 28.5 picogram 27.0-33.0 MEAN CELL HGB CONCETRATION (test code=MCHC) 34.4 gram/dL 33.0-36.0 RED CELL DISTRIBUTION WIDTH (test code=RDW) 12.4 % 11.6-16.2 RED CELL DISTRIBUTION WIDTH SD (test code=RDW-SD) 37.4 fL 37.0-51.0 PLATELET COUNT (test code=PLT) 328 K/mm3 150-450 MEAN PLATELET VOLUME (test code=MPV) 10.6 fL 6.7-11.0 IMMATURE GRANULOCYTE % (test code=IG%) 1.9 % 0.0-5.0 NUCLEATED RBC % (test code=NRBC%) 0.0 % 0-0 NEUTROPHIL # (test code=NT#) 22.51 K/mm3 1.8-7.7 IMMATURE GRANULOCYTE # (test code=IG#) 0.49 x10 3/uL 0-0.03 LYMPHOCYTE # (test code=LY#) 1.06 K/mm3 1.0-5.0 MONOCYTE # (test code=MO#) 1.45 K/mm3 0-0.8 EOSINOPHIL # (test code=EO#) 0.00 K/mm3 0.0-0.5 BASOPHIL # (test code=BA#) 0.08 K/mm3 0.0-0.2 NUCLEATED RBC # (test code=NRBC#) 0.00 K/mm3 0.0-0.1 MANUAL DIFF REQUIRED (test code=MDIFF) YES STAIN ACCEPTABILITY (test code=STN ACCEPTABLE) TOTAL CELLS COUNTED (test code=TCC) #CELLS SEGMENTED NEUTROPHILS (test code=SEG) % 39-69 LYMPHOCYTE (test code=LYMPH) % 25-55 MONOCYTE (test code=MON) % 0-10 EOSINOPHIL (test code=EOS) % 0.0-5.0 CABOT RINGS (test code=CAB) MORPHOLOGY COMMENT (test code=MOC) PLATELET ESTIMATE (test code=PLTEST) PLATELET MORPHOLOGY (test code=PLTMORPH) [id number] 22:25:00* Test Item Value Reference Range Comments GLUBED (test code=GLUBED) 359 mg/dL 74-106 Performed by certified control center operator at [facility] URIC [id number] 21:05:00* Test Item Value Reference Range Comments URIC ACID (test code=URIC) 11.3 mg/dL 2.6-7.2 OSMOLALITY [id number] 21:05:00* Test Item Value Reference Range Comments OSMOLALITY SERUM (test code=OSMO) 304.5 mOsm/kg 275-295 URIC [id number] 20:55:00* Test Item Value Reference Range Comments URIC ACID (test code=URIC) 11.3 mg/dL 2.6-7.2 OSMOLALITY [id number] 20:55:00* Test Item Value Reference Range Comments OSMOLALITY SERUM (test code=OSMO) mOsm/kg 275-295 SED [id number] 20:36:00* Test Item Value Reference Range Comments SED RATE (test code=SEDW) 115 mm/hr 0-15 WINTROBE METHOD: NORMAL RANGE FOR MEN: 0-9 MM/HR WOMAN: 0-20 MM/HR SED RATE [id number] 20:35:00* Test Item Value Reference Range Comments SED RATE WESTERGREN (test code=SEDW) 115 mm/hr 0-15 [id number] 19:19:00* Test Item Value Reference Range Comments GLYCOSYLATED HEMOGLOBIN (HA1C) (test code=GLYHGB) 8.9 % HbA1 4.8-6.0 ESTIMATED AVERAGE GLUCOSE (test code=EAG) 209 MG/DL LACTIC [id number] 17:29:00* Test Item Value Reference Range Comments LACTIC ACID (test code=LACT) 1.7 mmol/L 0.4-1.9 CBC W/O [id number] 16:27:00* Test Item Value Reference Range Comments WHITE BLOOD CELL (test code=WBC) 25.6 K/mm3 4.5-12.5 RED BLOOD CELL (test code=RBC) 3.48 mill/mm3 4.0-5.8 HEMOGLOBIN (test code=HGB) 10.0 gram/dL 13.0-17.5 HEMATOCRIT (test code=HCT) 28.8 % 42.0-52.0 MEAN CELL VOLUME (test code=MCV) 82.8 fL 80-98 MEAN CELL HGB (test code=MCH) 28.7 picogram 27.0-33.0 MEAN CELL HGB CONCETRATION (test code=MCHC) 34.7 gram/dL 33.0-36.0 RED CELL DISTRIBUTION WIDTH (test code=RDW) 12.4 % 11.6-16.2 PLATELET COUNT (test code=PLT) 340 K/mm3 150-450 MEAN PLATELET VOLUME (test code=MPV) 11.0 fL 6.7-11.0 PROTHROMBIN [id number] 16:10:00* Test Item Value Reference Range Comments PROTHROMBIN TIME PATIENT (test code=PTP) 15.3 seconds 9.0-14.0 INTERNATIONAL NORMAL RATIO (test code=INR) 1.3 0.8-1.2 The therapeutic range for oral anticoagulant therapy formost indications is an international normalized ratio (INR)of between 2.0 and 3.0. The recommended therapeutic INRrange for various clinical situations is listed below: Clinical Situation INR range Pulmonary e mbolism treatment (2.0-3.0)Venous thrombosis treatmentVenous thrombosis prophylaxis (high risk surgery)Prevention of systemic embolism from: Acute myocardial infarction Valvular heart disease Atrial fibrillation Mechanical prosthetic heart valves (2.5-3.5) IS PATIENT ON ANTICOAGULANTS? NTHROMBOPLASTIN TIME [id number] 16:10:00* Test Item Value Reference Range Comments THROMBOPLASTIN TIME PARTIAL (test code=PTT) 37.5 seconds 25.0-36.5 IS PATIENT ON ANTICOAGULANTS? NBASIC METABOLIC [id number] 16:10:00* Test Item Value Reference Range Comments SODIUM (test code=NA) 127 mmol/L 136-145 POTASSIUM (test code=K) 4.2 mmol/L 3.5-5.1 CHLORIDE (test code=CL) 96.0 mmol/L 98-107 CARBON DIOXIDE (test code=CO2) 18.0 mmol/L 21-32 ANION GAP (test code=GAP) 17.2 10-20 GLUCOSE (test code=GLU) 282 mg/dL 74-106 BLOOD UREA NITROGEN (test code=BUN) 87 mg/dL 7-18 GLOMERULAR FILTRATION RATE (test code=GFR) 16 mL/min >=60 Estimated GFR by using Modified MDRD formula.Chronic kidney disease is defined as either kidney damageor GFR <60 mL/min/1.73 m2 for >3 months. CREATININE (test code=CREAT) 3.80 mg/dL 0.7-1.3 BUN/CREATININE RATIO (test code=BUN/CREA) 23.0 10-20 CALCIUM (test code=CA) 9.5 mg/dL 8.5-10.1 BASIC METABOLIC [id number] 15:59:00* Test Item Value Reference Range Comments SODIUM (test code=NA) 127 mmol/L 136-145 POTASSIUM (test code=K) 4.2 mmol/L 3.5-5.1 CHLORIDE (test code=CL) 96.0 mmol/L 98-107 CARBON DIOXIDE (test code=CO2) mmol/L 21-32 ANION GAP (test code=GAP) 10-20 GLUCOSE (test code=GLU) mg/dL 74-106 BLOOD UREA NITROGEN (test code=BUN) mg/dL 7-18 GLOMERULAR FILTRATION RATE (test code=GFR) mL/min >=60 CREATININE (test code=CREAT) mg/dL 0.7-1.3 BUN/CREATININE RATIO (test code=BUN/CREA) 10-20 CALCIUM (test code=CA) mg/dL 8.5-10.1 - XR FOOT 3 + V [id number] 15:15:00 FAX: Myrna Lopez [phone] [place]: B St: REG Name: TORRES CAN [facility] : [birth year] 57 Age/S: 58/M Jessi Harrington [facility] Unit #: [id number] Loc: [place] [address] Phys: Myrna Vickers MD Acct: [id number] Dis Date: Status: REG ER PHONE #: [phone] Exam Date: 02/19/2019 1510 FAX #: [phone] Reason: GANGRENE OF SMALL TOE EXAMS: CPT CODE: [id number] XR FOOT 3 + V RT [id number] REASON FOR EXAM: GANGRENE OF SMALL TOE EXAM ORDER DATE: 02/19/2019 2:37 PM Ordering MYvonne: Myrna Vickers MD PROCEDURE: - XR FOOT 3 + V RT FINDINGS: 3 views of the right foot were obtained. Moderate subcutaneous emphysema in the dorsal aspect of the right fifth MT P with destruction of the base of the right fifth proximal phalanx and the head of the right fifth metatarsal consistent with osteomyelitis. A dditional erosion may be present in the head of the right fourth metatarsa l. IMPRESSION: Moderate subcutaneous emphysema consistent with s oft tissue infection with osteomyelitis of the right fifth MTP and probably of the head of the right fourth metatarsal at 1513 Reported and signed by: Baal Jimenez M.D. CC: Myrna Vickers MD Technologist: TRICIA CORREA Trnscrd Date/Time/By: 02/19/2019 (2027) : By: JoseVTL Orig Print D/T: S: 02/19/2019 (3928) PAGE 1 Signed Report
[2019-05-11] MEDS ORDERED: SODIUM CHLORIDE 0.9% 500ML 500 ML IV STA (21:11)
[2019-05-11] MEDS ORDERED: ACETAMINOPHEN 325 MG TAB PO ONE (21:15)
[2019-05-11] MEDS ORDERED: ACETAMINOPHEN 325 MG TAB ONE ×2 (21:17)
[2019-05-11 21:31] LABS: BASOPHILS # (AUTO) 0.1 (0.0-0.1); BASOPHILS % 0.3 % (0.0-1.0); EOSINOPHILS # (AUTO) 0.1 (0.0-0.4); EOSINOPHILS % 0.4 % (0.0-6.0); HEMATOCRIT 32.4 % (38.2-49.6); LYMPHOCYTES % 4.7 % (18.0-39.1); MEAN CORPUSCULAR HEMOGLOBIN 30.6 pg (28-32); MEAN CORPUSCULAR VOLUME 90.3 fL (81-99); MONOCYTES # (AUTO) 1.1 (0.2-0.8); MONOCYTES % 5.5 % (4.4-11.3); NEUTROPHILS # (AUTO) 18.3 (2.1-6.9); NEUTROPHILS % 88.3 % (38.7-80.0); PLATELET COUNT 143 x10e3/uL (140-360); RED BLOOD COUNT 3.59 x10e6/uL (4.3-5.7); RED CELL DISTRIBUTION WIDTH 13.6 % (11.7-14.4)
[2019-05-11] MEDS ORDERED: VANCOMYCIN 1GM/NS 250 ML 250 ML IV ONE (21:45)
[2019-05-11 21:47] LABS: ALBUMIN 3.2 g/dL (3.5-5.0); ALBUMIN/GLOBULIN RATIO 0.9 (0.8-2.0); ANION GAP 17.8 mmol/L (8-16); CALCIUM 8.7 mg/dL (8.4-10.2); CREATININE, SERUM 2.77 mg/dL (0.72-1.25); POTASSIUM 3.8 mmol/L (3.5-5.1)
[2019-05-11 21:51] LABS: BAND NEUTROPHILS % (MANUAL) 5 %; LYMPHOCYTES % (MANUAL) 8 % (19-48); MONOCYTES % (MANUAL) 3 % (3.4-9.0); NEUTROPHILS % (MANUAL) 84 % (40-74); PLATELET ESTIMATE ADEQUATE; PLATELET MORPHOLOGY COMMENT NORMAL; RBC MORPHOLOGY COMMENT NORMAL
[2019-05-11] MEDS ORDERED: CEFEPIME 1GM/NS 0.9% 50 ML 50 ML IV ONE (22:23)
--- NOTE | 2019-05-11 22:26 | Diagnostic Imaging Report ---
EXAMINATION: CHEST SINGLE (PORTABLE) INDICATION: ^ERMD ORDER ^[id number] ^2155 ^Y COMPARISON: 03/12/2009 FINDINGS: AP view TUBES and LINES: Right IJ catheter with tip projecting over distal SVC. LUNGS: Lungs are well inflated. There is no evidence of pneumonia or pulmonary edema. PLEURA: No pleural effusion or pneumothorax. HEART AND MEDIASTINUM: The cardiomediastinal silhouette is unremarkable. BONES AND SOFT TISSUES: No acute osseous lesion. Soft tissues are unremarkable. UPPER ABDOMEN: No free air under the diaphragm. IMPRESSION: No acute thoracic abnormality. Signed by: Dr. George Allen MD on 05/11/2019 10:22 PM
[2019-05-11] MEDS: CEFEPIME HCL 1 GM VIAL IV SCH ×2 (22:30→23:00)
[2019-05-11 22:49] LABS: COLOR,URINE YELLOW (YELLOW); LEUKOCYTE ESTERASE ,URINE NEGATIVE (NEGATIVE); NITRITE,URINE NEGATIVE (NEGATIVE)
[2019-05-11 22:50] LABS: BILIRUBIN,URINE NEGATIVE (NEGATIVE); CLARITY,URINE CLOUDY (CLEAR); KETONES,URINE NEGATIVE (NEGATIVE); PROTEIN,URINE DIPSTICK 2+ (NEGATIVE); URINE UROBILINOGEN 0.2 mg/dL (0.2 - 1)
--- NOTE | 2019-05-11 22:50 | NUR ---
RT AC IV NOTED TO BE INFILTRATED - IV D/CD WITH TIP INTACT AND NEW IV STARTED IN RT FA
[2019-05-11 23:13] LABS: BACTERIA,URINE MANY /HPF; EPITHELIAL CELLS,URINE MANY /LPF; RBC,URINE >50 /HPF (0-5); WBC,URINE (MAN) >50 /HPF (0-5)
[2019-05-12] VITALS (11 sets, daily range): BP systolic 138–190; BP diastolic 64–80
[2019-05-12] MEDS ORDERED: SODIUM CHLORIDE 0.9% 250ML 250 ML ONE (00:58)
--- NOTE | 2019-05-12 01:07 | NUR ---
Received patient from ER via stretcher. Patient alert and oriented, resting in bed, no s/s of distress or c/o pain at this time. Vital signs stable. All safety measures in place. Family at bedside. Will continue to monitor.
[2019-05-12] MEDS ORDERED: CARVEDILOL25 MG PO (01:16)
[2019-05-12] MEDS ORDERED: GABAPENTIN300 MG PO (01:16)
[2019-05-12] MEDS ORDERED: SIMVASTATIN20 MG PO (01:16)
[2019-05-12] MEDS ORDERED: LEVEMIR100 UNIT/1 SC (01:16)
[2019-05-12] MEDS ORDERED: HYDRALAZINE HCL25 MG PO (01:16)
[2019-05-12] MEDS ORDERED: AMLODIPINE BESY10 MG PO (01:16)
[2019-05-12] MEDS ORDERED: LISINOPRIL10 MG PO (01:16)
[2019-05-12] MEDS ORDERED: LASIX40 MG PO (01:16)
--- NOTE | 2019-05-12 07:31 | NUR ---
spoke with ALEX Tyler for Dr. Perez's group regarding pt's elevated blood pressure and fever this morning (temp 101.2 and BP 190/79). requested to restart pt's home medications. WATER FILTRATION TECHNICIAN ordered first dose of Hydralazine now and Tylenol then they will decide which medicines to restart once they complete rounds later today.
[2019-05-12] MEDS: HYDRALAZINE HCL 25 MG TAB PO SCH ×3 (07:52→21:00)
[2019-05-12] MEDS: ACETAMINOPHEN 325 MG TAB PO PRN ×2 (07:52→16:50)
[2019-05-12] MEDS: CEFEPIME 1GM/NS 0.9% 50 ML 50 ML IV SCH ×2 (10:31→22:30)
[2019-05-12 19:46] LABS: BASOPHILS % 0.3 % (0.0-1.0); EOSINOPHILS # (AUTO) 0.2 (0.0-0.4); EOSINOPHILS % 2.2 % (0.0-6.0); HEMATOCRIT 31.2 % (38.2-49.6); HEMOGLOBIN 10.6 g/dL (14.0-18.0); LYMPHOCYTES # (AUTO) 0.4 (1.0-3.2); LYMPHOCYTES % 3.9 % (18.0-39.1); MEAN CORPUSCULAR HEMOGLOBIN 29.9 pg (28-32); MEAN CORPUSCULAR VOLUME 88.1 fL (81-99); MONOCYTES # (AUTO) 0.4 (0.2-0.8); MONOCYTES % 4.2 % (4.4-11.3); NEUTROPHILS # (AUTO) 9.3 (2.1-6.9); NEUTROPHILS % 88.9 % (38.7-80.0); PLATELET COUNT 112 x10e3/uL (140-360); RED BLOOD COUNT 3.54 x10e6/uL (4.3-5.7); RED CELL DISTRIBUTION WIDTH 13.5 % (11.7-14.4)
--- NOTE | 2019-05-12 20:00 | NUR ---
INITIAL ASSESSMENT COMPLETE, PT IN BED, NO DISTRESS NOTED, VS STABLE, AT BEDSIDE, FISTULA TO LEFT ARM, [facility] CATH TO RIGHT SHOULDER, IV INTACT TO RIGHT ARM, TOLD TO CALL FOR NEEDS
[2019-05-12 20:03] LABS: ANION GAP 16.9 mmol/L (8-16); CALCIUM 8.3 mg/dL (8.4-10.2); CREATININE, SERUM 3.14 mg/dL (0.72-1.25); POTASSIUM 3.9 mmol/L (3.5-5.1)
[2019-05-12 20:20] LABS: LYMPHOCYTES % (MANUAL) 6 % (19-48); MONOCYTES % (MANUAL) 2 % (3.4-9.0); NEUTROPHILS % (MANUAL) 92 % (40-74); PLATELET ESTIMATE SLIGHTLY DECREASED; PLATELET MORPHOLOGY COMMENT NORMAL; RBC MORPHOLOGY COMMENT NORMAL
[2019-05-12] MEDS: SIMVASTATIN 20 MG TAB PO SCH (21:00)
[2019-05-12] MEDS ORDERED: DEXTROSE 50% SYRINGE 50 ML IV PRN (21:15)
--- NOTE | 2019-05-12 21:15 | NUR ---
CALLED MEENA WITH DR CARMEN GROUP FOR ORDERS OF BLOOD SUGAR COVERAGE. NEW ORDERS RECEIVED
[2019-05-13] VITALS (8 sets, daily range): BP systolic 130–170; BP diastolic 63–72
--- NOTE | 2019-05-13 01:40 | NUR ---
PT LACTIC ACID DRAWN AND BACK 2.6 NOW UP FROM BEFORE, CALL TO MEENA TO REPORT AND FOR NEW ORDERS, PT IS VOMITING AND O2 SAT IS DOWN TO 92% ON RA, O2 2L NC PLACED ON PT, NEW ORDERS FOR ZOFRAN GIVEN, CONTINUE TO MONITOR PT.
[2019-05-13] MEDS ORDERED: ONDANSETRON HCL INJ 2MG/ML 2ML 2 MG/ML VIAL IV PRN (01:45)
--- NOTE | 2019-05-13 06:23 | NUR ---
swap done for flu and strep
[2019-05-13 07:01] LABS: BASOPHILS % 0.4 % (0.0-1.0); EOSINOPHILS % 0.4 % (0.0-6.0); HEMATOCRIT 32.5 % (38.2-49.6); HEMOGLOBIN 10.8 g/dL (14.0-18.0); LYMPHOCYTES # (AUTO) 0.5 (1.0-3.2); LYMPHOCYTES % 5.6 % (18.0-39.1); MEAN CORPUSCULAR HEMOGLOBIN 29.9 pg (28-32); MEAN CORPUSCULAR HGB CONC 33.2 g/dL (31-35); MONOCYTES # (AUTO) 0.5 (0.2-0.8); NEUTROPHILS # (AUTO) 7.2 (2.1-6.9); PLATELET COUNT 136 x10e3/uL (140-360); RED BLOOD COUNT 3.61 x10e6/uL (4.3-5.7); RED CELL DISTRIBUTION WIDTH 13.5 % (11.7-14.4)
[2019-05-13 07:17] LABS: STREPTOCOCCUS GRP A ANTIGEN NEGATIVE (NEGATIVE)
[2019-05-13 07:18] LABS: INFLUENZAE A&B ANTIGEN (RAPID) NEGATIVE (NEGATIVE)
[2019-05-13] MEDS: INSULIN LISPRO 100 UNIT/1 ML 3ML VIAL SQ SCH ×4 (07:30→21:00)
--- NOTE | 2019-05-13 07:40 | NUR ---
PATIENT IN BED RESTING WITH EYES CLOSED, NO DISTRESS NOTED. DRESSING DRY AND INTACT TO RIGHT BKA, O2 IN PLACE VIA N/C. BED IN LOWER POSITION, CALL LIGHT AT REACH. FAMILY MEMBER AT BED SIDE.
[2019-05-13] MEDS: FAMOTIDINE 20 MG TAB PO SCH ×2 (08:08→16:41)
[2019-05-13] MEDS ORDERED: NON-FORMULARY MEDICATION (Carvedilol 25 MG) PO SCH (09:00)
[2019-05-13] MEDS: AMLODIPINE BESYLATE 10 MG TAB PO SCH (09:08)
[2019-05-13] MEDS: HYDRALAZINE HCL 25 MG TAB PO SCH ×3 (09:08→21:18)
[2019-05-13] MEDS: CARVEDILOL 12.5 MG TAB PO SCH ×2 (09:08→17:07)
[2019-05-13] MEDS: CEFEPIME 1GM/NS 0.9% 50 ML 50 ML IV SCH ×2 (10:36→22:30)
--- NOTE | 2019-05-13 12:39 | NUR ---
DISCUSSED PT STATUS Abebe Quevedo PT REMAINS OBS. SENT TO R1 FOR LOC REVIEW.
--- NOTE | 2019-05-13 14:46 | NUR ---
PCTX case account ending in 2127 has been reviewed and completed by PAS Physicians. Service Line: Level of Care (LOC) / Admission Status Review Initial patient type was submitted as: IO - Initial Observation PAS Recommendation: IN SPOKE W FABIOLA ALARCON STATES HE WILL CHANGE PT TO INPT.
--- NOTE | 2019-05-13 14:47 | NUR ---
WOUND CARE CONSULT FOR 58 YO MALE HX RIGHT BKA SURGICAL DATE 03/05/2019 KADIE 15 MODERATE PUP STATUS VISCO MATTRESS LABS : WBC- 8.23,RBC- 3.6, HGB- 10.8 BLOOD CULTURE SHOWS NO GROWTH SKIN ASSESSMENT COMPLETE PATIENT PRESENTS WITH LEFT FOREARM 6CM FISTULA SHUNT SURGICAL LINE RIGHT BKA SURGICAL DATE 03-05-2019 WOUND 2.5 CM X 7 CM 90% ESCHAR 10 % GRANULATION RECOMMENDATIONS: NURSING TO CONTINUE TO MAINTAIN MODERATE PUP STATUS AND ALTERNATING PRESSURE SURFACE NURSING TO CONTINUE TO ASSIST PATIENT OUT OF BED FOR MEALS AND MUCH TOLERATED NURSING TO APPLY DAILY XEROFORM GAUZE COVER WITH 4X4 WRAP WITH KERLIX SECURE WITH TAPE OR LOOSE WRAP PATIENT MAY BENEFIT FROM OUTPATIENT WOUND CARE AND HYPERBARIC OXYGEN SCREENING UPON DISCHARGE Addendum: 05/13/19 at 1522 by Bryant Harman RN Amended: Links added.
--- NOTE | 2019-05-13 15:43 | NUR ---
MD IN TO SEE PATIENT, NEW ORDER RECEIVED.
--- NOTE | 2019-05-13 20:47 | NUR ---
RECEIVE DPT IN BED AOX3 .RT BKA .RESPIRATIONS ARE EVEN AND UNLABORED .CALL LIGHT WITH IN REACH .CONTINUE TO MONITOR
[2019-05-13] MEDS: SIMVASTATIN 20 MG TAB PO SCH (21:19)
--- NOTE | 2019-05-13 23:08 | Consultation ---
DATE OF CONSULTATION: 05/13/2019 HISTORY OF PRESENT ILLNESS: This patient has sepsis UTI, recommendation antibiotic this patient is very pleasant 58-year-old male, who started on hemodialysis back in March. The patient does have underlying history of depression, diabetes mellitus, hypertension, neuropathy, peripheral vascular disease, diabetic retinopathy. He was started on dialysis about a couple months ago. A right subclavian line was inserted. He is coming with 1-day history of fever, chills, nausea, vomiting, not feeling well at all. The patient was then sent to the emergency room. He was started on IV antibiotic. In the emergency room, his white count was 20.7, hemoglobin 11. He was started on intravenous antibiotic. He was currently on cefepime and he is feeling better. I am asked to see him. The patient has no complaints at the present time. He stated that since he came here he is feeling good. REVIEW OF SYSTEMS: HEENT : Negative. PULMONARY: Negative. CARDIAC: Negative. : Negative. GI: Negative. MEDICATIONS LIST: Reviewed. He is currently on hydralazine, insulin, cefepime, Norvasc, Pepcid, Zofran, and Zocor. PHYSICAL EXAMINATION: GENERAL: He is currently alert, oriented, does not seem to be in acute distress. VITAL SIGNS: Stable. Currently afebrile. HEENT: Normocephalic, not icteric. NECK: Supple. No JVD. No lymphadenopathy. No thyromegaly. CHEST: Clear bilateral. HEART: S1, S2. No murmur. ABDOMEN: Soft. Bowel sounds present. No tenderness. EXTREMITIES: No edema. IMPRESSION: 1. Sepsis on admission gram-negative probably pyelonephritis. Continue with cefepime 1 g every 24 hours. 2. agree with blood cultures. 3. Diabetes mellitus with neuropathy. We will follow up. Further recommendations pending on the clinical progress and the finding of his intraabdominal process and the finding of the blood cultures. MD EVGENY Toro/MANUEL /[id number]
--- NOTE | 2019-05-13 23:33 | Consultation ---
DATE OF CONSULTATION: 05/13/2019 HISTORY OF PRESENT ILLNESS: This 58-year-old gentleman dialysis patient of ours, gets dialyzed 3 times a week has a new maturing AV fistula left arm, dialyzed through a tunneled dialysis catheter, came in with fever, chills, nausea and abdominal discomfort. He has recently had urinary tract infection. Currently, awake, alert, oriented x3. No apparent distress. Recent urine cultures positive for gram-negative bacilli. Its final infection per ID pending. ALLERGIES: HE HAS NO DRUG ALLERGIES. SOCIAL HISTORY: . Does not smoke or drink. MEDICATIONS: Currently on cefepime 1 g IV q.12h, amlodipine 10 mg daily, carvedilol 25 b.i.d., Humalog, folic acid, ondansetron, hydralazine 75 mg p.o. t.i.d. PAST MEDICAL HISTORY: Diabetes, hypertension, end-stage renal disease. CURRENT LABS: Show white count 8.2, hemoglobin 10.8 with a potassium level of 3.9. PHYSICAL EXAMINATION: GENERAL: Awake, alert, lying supine, in no apparent distress. CONSTITUTIONAL: Denies any fever and chills at this point in time. Denies any chest pain. VITAL SIGNS: Blood pressure is 150/63, pulse rate 81, afebrile, oxygen saturation 100%. HEAD AND NECK: Cornea clear. Oral mucosa moist. Neck veins flat. LUNGS: Occasional bibasilar rales. HEART: S1 and S2 audible. ABDOMEN: Shows soft, distended, nontender, flanks full. EXTREMITIES: Lower extremity no edema. IMPRESSION AND PLAN: End-stage renal disease complicated UTI as a reason for fever and chills underlying end-stage renal disease, hypertension, diabetes. Agree with choice of antibiotics. Awaiting final identification of the organism. Dialysis to be arranged. Labs ordered to renal diet. Discussed with bedside. MD ELIO Meeks/MANUEL /[id number]
[2019-05-14] VITALS (8 sets, daily range): BP systolic 132–187; BP diastolic 62–80
[2019-05-14] MEDS: ACETAMINOPHEN 325 MG TAB PO PRN (00:38)
[2019-05-14 04:16] LABS: BASOPHILS % 0.7 % (0.0-1.0); EOSINOPHILS # (AUTO) 0.1 (0.0-0.4); EOSINOPHILS % 2.7 % (0.0-6.0); HEMATOCRIT 30.8 % (38.2-49.6); HEMOGLOBIN 10.2 g/dL (14.0-18.0); LYMPHOCYTES # (AUTO) 0.7 (1.0-3.2); LYMPHOCYTES % 15.8 % (18.0-39.1); MEAN CORPUSCULAR HEMOGLOBIN 29.7 pg (28-32); MEAN CORPUSCULAR HGB CONC 33.1 g/dL (31-35); MEAN CORPUSCULAR VOLUME 89.8 fL (81-99); MONOCYTES # (AUTO) 0.5 (0.2-0.8); NEUTROPHILS # (AUTO) 3.1 (2.1-6.9); NEUTROPHILS % 67.7 % (38.7-80.0); PLATELET COUNT 125 x10e3/uL (140-360); RED BLOOD COUNT 3.43 x10e6/uL (4.3-5.7)
[2019-05-14 04:32] LABS: ANION GAP 14.8 mmol/L (8-16); CALCIUM 8.3 mg/dL (8.4-10.2); CREATININE, SERUM 4.15 mg/dL (0.72-1.25); MAGNESIUM 1.8 MG/DL (1.3-2.1); POTASSIUM 3.8 mmol/L (3.5-5.1)
--- NOTE | 2019-05-14 05:44 | NUR ---
PT RESTED DURING THE NIGHT .DENIES PAIN CALL LIGHT WITH IN REACH .CONTINUE TO MONITOR
--- NOTE | 2019-05-14 07:17 | NUR ---
BEDSIDE REPORT GIVEN TO THE ONCOMING NURSE
[2019-05-14] MEDS: FAMOTIDINE 20 MG TAB PO SCH ×2 (07:30→16:46)
[2019-05-14] MEDS: INSULIN LISPRO 100 UNIT/1 ML 3ML VIAL SQ SCH ×4 (07:30→21:08)
[2019-05-14] MEDS: CARVEDILOL 12.5 MG TAB PO SCH ×2 (09:00→16:46)
[2019-05-14] MEDS: AMLODIPINE BESYLATE 10 MG TAB PO SCH (09:00)
[2019-05-14] MEDS: FOLIC ACID/CYANOCOB/PYRIDOXINE TAB PO SCH (09:00)
[2019-05-14] MEDS: HYDRALAZINE HCL 25 MG TAB PO SCH ×3 (09:00→21:07)
[2019-05-14] MEDS ORDERED: SODIUM CHLORIDE 0.9% 1000ML 2,000 ML ONE (09:34)
[2019-05-14] MEDS ORDERED: HEPARIN SOD (PORCINE) 1000 UNIT/ML SDV IV PRN (12:45)
[2019-05-14] MEDS ORDERED: SODIUM CHLORIDE 0.9% 1000ML 2,000 ML IV PRN (12:45)
[2019-05-14] MEDS: CEFEPIME 1GM/NS 0.9% 50 ML 50 ML IV SCH ×2 (14:28→23:25)
--- NOTE | 2019-05-14 15:20 | NUR ---
Visit made by the Spiritual Care Department Pastoral Visitor, Sheri Cisneros. PV provided pastoral presence, prayer, hospitality, and supportive listening. Pastoral Visitor informed pt/family of the scope of Watch Repair Technician Services and availability. SANKET FLETCHER Digital Forensics Examiner Spiritual Care Department O: [phone] Pager: [phone] ([phone] number calling from)
--- NOTE | 2019-05-14 19:00 | NUR ---
RECEIVED PATIENT IN BEDSIDE REPORT. PATIENT RESTING IN BED AT THIS TIME. FAMILY MEMBERS AT BEDSIDE. A&OX3. NO PAIN REPORTED. NO S&S OF DISTRESS NOTED. WRAPPED R STUMP WITH KERLIX AND AMAN WRAP. BED LOCKED IN LOWEST POSITION, SIDE RAILS UPX2, CALL LIGHT IN REACH.
[2019-05-14] MEDS: SIMVASTATIN 20 MG TAB PO SCH (21:07)
[2019-05-15] VITALS: BP 182/78
--- NOTE | 2019-05-15 02:40 | NUR ---
PATIENT REPORTS HE TOOK OF BANDAGE TO R LEG BECAUSE IT WAS TOO TIGHT AND DIDN'T BREATHE. PATIENT STATED HE WOULD ALLOW IT TO BE WRAPPED IF JUST THE GAUZE WAS USED WITHOUT THE AMAN WRAP. PERFORMED DRESSING CHANGE ACCORDING TO RECOMMENDATION FROM WOUND CARE. PATIENT STATED IT FELT MORE COMFORTABLE, BUT STILL NOT BREATHABLE HE WOULD LIKE. TOLD PATIENT TO CALL IF DRESSING CAME OFF OR HE TOOK IT OFF, PATIENT VERBALIZED UNDERSTANDING. BED LOCKED IN LOWEST POSITION, SIDE RAILS UPX2, CALL LIGHT IN REACH.
[2019-05-15 02:45] LABS: BASOPHILS % 0.4 % (0.0-1.0); EOSINOPHILS % 0.7 % (0.0-6.0); HEMATOCRIT 29.5 % (38.2-49.6); MEAN CORPUSCULAR HGB CONC 33.9 g/dL (31-35); MEAN CORPUSCULAR VOLUME 88.6 fL (81-99); MONOCYTES # (AUTO) 0.8 (0.2-0.8); MONOCYTES % 17.8 % (4.4-11.3); NEUTROPHILS # (AUTO) 2.7 (2.1-6.9); NEUTROPHILS % 58.1 % (38.7-80.0); PLATELET COUNT 123 x10e3/uL (140-360); RED BLOOD COUNT 3.33 x10e6/uL (4.3-5.7)
[2019-05-15 03:00] LABS: ANION GAP 18.1 mmol/L (8-16); CALCIUM 8.6 mg/dL (8.4-10.2); CREATININE, SERUM 3.45 mg/dL (0.72-1.25); POTASSIUM 4.1 mmol/L (3.5-5.1)
[2019-05-15 04:36] VITALS: BP 188/77
[2019-05-15] MEDS ORDERED: CEFDINIR300 MG PO (07:12)
[2019-05-15 07:49] VITALS: BP 204/80
[2019-05-15] MEDS: FOLIC ACID/CYANOCOB/PYRIDOXINE TAB PO SCH (08:28)
[2019-05-15] MEDS: AMLODIPINE BESYLATE 10 MG TAB PO SCH (08:28)
[2019-05-15] MEDS: CARVEDILOL 12.5 MG TAB PO SCH (08:28)
[2019-05-15] MEDS: FAMOTIDINE 20 MG TAB PO SCH (08:28)
[2019-05-15] MEDS: HYDRALAZINE HCL 25 MG TAB PO SCH (08:28)
[2019-05-15 08:29] VITALS: BP 204/80
[2019-05-15] MEDS ORDERED: LISINOPRIL 10 MG TAB PO SCH (09:00)
[2019-05-15] MEDS: INSULIN LISPRO 100 UNIT/1 ML 3ML VIAL SQ SCH (09:42)
[2019-05-15 09:45] VITALS: BP 154/68
--- NOTE | 2019-05-15 09:45 | NUR ---
PATIENT PRESENT AT BEDSIDE AT THIS TIME TO TAKE PATIENT HOME. IV REMOVED AT THIS TIME WITHOUT COMPLICATION. BP RECHECKED AND IS 154/68.
--- NOTE | 2019-05-15 09:52 | NUR ---
PATIENT LEAVING UNIT AT THIS TIME WITH . PATIENT AND EDUCATED ON DISCHARGE INSTRUCTIONS AND FOLLOWUP INSTRUCTIONS. PRESCRIPTION GIVEN TO PATIENT AND COPY MADE FOR CHART. PATIENT DENIES ANY C/O PAIN. PATIENT BELONGINGS GATHERED AND WITH .
--- NOTE | 2019-05-17 04:47 | Discharge Summary ---
DISCHARGE DIAGNOSES: 1. Severe sepsis, unknown source. 2. Right below knee amputation with wound, present on admission. 3. End-stage renal disease. 4. Uncontrolled type 2 diabetes with end-stage renal disease. 5. Hypertension with end-stage renal disease. 6. Ambulatory dysfunction. HISTORY: 1. Hypertension. 2. Diabetes. 3. End-stage renal disease. 4. Peripheral vascular disease. SURGICAL HISTORY: Left forearm fistula, right BKA, and left foot toe amputation x4. FAMILY HISTORY: The patient's uncle x2 had diabetes. SOCIAL HISTORY: Noncontributory. HOSPITAL COURSE: A 58-year-old male admits with fever at home of 102 and muscle aches. He had a recent right BKA about 3 months ago. Chest x-ray was negative on admission. Flu and strep were negative. Blood cultures negative. Urine culture came back positive for E coli. The patient was initially started on Rocephin and changed to Omnicef at the time of discharge. He will follow up with primary care in 1 to 2 weeks and continue normal dialysis schedule. The patient understands discharge instructions and agrees to plan. Dictated by Ml Fan NP MD CANDICE Downing/MANUEL /[id number]
== END 2019-05-15 09:53 | disposition home or self-care (01) | DRG 871 ==
LOC: ER 20:35 → ERHOLD 22:50 → INTOOBSV 22:50 → MED/SURG3 05-12 00:06 → OBSVTOIN 05-13 14:18
PROVIDERS: ADMIT Internal Medicine; ATTEND Internal Medicine
PROC: 5A1D70Z Performance of Urinary Filtration, Intermittent, Less than 6 Hours Per Day (ICD-10-PCS; principal; 2019-05-14)
DX: A41.51 Sepsis due to Escherichia coli [E. coli] (principal); N18.6 End stage renal disease; N11.1 Chronic obstructive pyelonephritis; I12.0 Hypertensive chronic kidney disease with stage 5 chronic kidney disease or end stage renal disease; T87.43 Infection of amputation stump, right lower extremity; N39.0 Urinary tract infection, site not specified; E87.1 Hypo-osmolality and hyponatremia; E11.22 Type 2 diabetes mellitus with diabetic chronic kidney disease; E11.51 Type 2 diabetes mellitus with diabetic peripheral angiopathy without gangrene; Z99.2 Dependence on renal dialysis; Z79.4 Long term (current) use of insulin; Z89.511 Acquired absence of right leg below knee; R26.9 Unspecified abnormalities of gait and mobility; Z89.422 Acquired absence of other left toe(s); R65.20 Severe sepsis without septic shock; F32.9 Major depressive disorder, single episode, unspecified; E11.40 Type 2 diabetes mellitus with diabetic neuropathy, unspecified
CPT/HCPCS: 36415; 71045; 80048; 80053; 81001; 82948; 83036; 83518; 83605; 83735; 84443; 85025; 86704; 86707; 87040; 87070; 87086; 87186; 87340; 87400; 99284; G0378; J0692; J1644; J2405; J3370; J7030; J7040; J7050

== ENCOUNTER 2020-04-24 19:45 | Inpatient (IN) | payer MEDICARE ==
[~2020-04-24] VITALS: Ht 165.1 cm; Wt 80.9 kg
[~2020-04-24 19:45] MED LIST: AMLODIPINE BESY10 MG PO; CARVEDILOL25 MG PO; CEFDINIR300 MG PO; GABAPENTIN300 MG PO; HYDRALAZINE HCL25 MG PO; LASIX40 MG PO; LEVEMIR100 UNIT/1 SC; LISINOPRIL10 MG PO; SIMVASTATIN20 MG PO
--- NOTE | 2020-04-24 19:49 | Emergency Department Note ---
History of Present Illnes History of Present Illness History of Present Illness This is a 59 year old male presents to the ED for dislocation of L hallux. Prior h/o of R AKA with PVD . 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 Historian: Patient, Family Member Arrival Mode: Car Onset (how long ago): day(s) Radiation: Reports distal Severity: mild Onset quality: gradual Timing of current episode: constant Progression: worsening Chronicity: new Context: Reports trauma/injury Relieving factors: none Exacerbating factors: none Associated symptoms: Reports denies other symptoms Treatments prior to arrival: none Past Medical/Family History Physician Review I have reviewed the patient's past medical and family history. Any updates have been documented here. Past Medical History Past Medical History: Hypertension, Diabetes, ESRD, Hyperlipedemia Other Medical History: Pneumonia Other Surgery: Right BKA Social History Smoking Cessation: Never Smoker Alcohol Use: None Any Illegal Drug Use: No Other Last Tetanus: UTD Physical Exam Related Data Allergies: Coded Allergies: No Known Drug Allergies (Verified Allergy, Unknown, 03/12/09) Physical Exam CONSTITUTIONAL Constitutional: Present well-developed, Present well-nourished HENT HENT: Present normocephalic, Present atraumatic, Present oropharynx clear/moist, Present nose normal HENT L/R: Present left ext ear normal, Present right ext ear normal EYES Eyes: Reports PERRL, Reports conjunctivae normal NECK Neck: Present ROM normal PULMONARY Pulmonary: Present effort normal, Present breath sounds normal CARDIOVASCULAR Cardiovascular: Present regular rhythm, Present heart sounds normal, Present capillary refill normal, Present normal rate GASTROINTESTINAL Abdominal: Present soft, Present nontender, Present bowel sounds normal GENITOURINARY Genitourinary: Present exam deferred SKIN Skin: Present warm, Present dry MUSCULOSKELETAL Musculoskeletal: Present other (R AKA, distal hemorrhagic bulla distal hallux. Blanching skin surrounding lesion. Nail bed L hallux with venous dark blood) NEUROLOGICAL Neurological: Present alert, Present oriented x 3, Present no gross motor or sensory deficits PSYCHOLOGICAL Psychological: Present mood/affect normal, Present judgement normal Results Laboratory Lab results reviewed: Yes Laboratory comments Laboratory Tests Test 04/24/20 21:10 04/24/20 20:17 White Blood Count 8.85 x10e3/uL (4.8-10.8) Red Blood Count 3.50 x10e6/uL (4.3-5.7) Hemoglobin 10.6 g/dL (14.0-18.0) Hematocrit 31.2 % (38.2-49.6) Mean Corpuscular Volume 89.1 fL (81-99) Mean Corpuscular Hemoglobin 30.3 pg (28-32) Mean Corpuscular Hemoglobin Concent 34.0 g/dL (31-35) Red Cell Distribution Width 13.3 % (11.7-14.4) Platelet Count 211 x10e3/uL (140-360) Neutrophils (%) (Auto) 65.3 % (38.7-80.0) Lymphocytes (%) (Auto) 16.7 % (18.0-39.1) Monocytes (%) (Auto) 6.6 % (4.4-11.3) Eosinophils (%) (Auto) 10.6 % (0.0-6.0) Basophils (%) (Auto) 0.3 % (0.0-1.0) Neutrophils # (Auto) 5.8 (2.1-6.9) Lymphocytes # (Auto) 1.5 (1.0-3.2) Monocytes # (Auto) 0.6 (0.2-0.8) Eosinophils # (Auto) 0.9 (0.0-0.4) Basophils # (Auto) 0.0 (0.0-0.1) Absolute Immature Granulocyte (auto 0.04 x10e3/uL (0-0.1) Platelet Estimate Adequate Platelet Morphology Comment Normal Red Cell Morphology Comment Normal Sodium Level 132 mmol/L (136-145) Potassium Level 3.6 mmol/L (3.5-5.1) Chloride Level 92 mmol/L (98-107) Carbon Dioxide Level 27 mmol/L (22-29) Anion Gap 16.6 mmol/L (8-16) Blood Urea Nitrogen 34 mg/dL (7-26) Creatinine 4.97 mg/dL (0.72-1.25) Estimat Glomerular Filtration Rate 12 ML/MIN (60-) BUN/Creatinine Ratio 7 (6-25) Glucose Level 455 mg/dL (74-118) Calcium Level 8.0 mg/dL (8.4-10.2) Imaging Imaging results reviewed: Yes Impressions [facility] [address] [address] Patient Name: TORRES MAI MR #: [id number] : 1960 Age/Sex: 59/M Req #: [id number] Adm Physician: SONYA ARANDA MD Ordered by: WAYLON NOBLES DO Report #: [id number] Location: [facility] Room/Bed: [address] [place] [address] Procedure: [id number] DX/FOOT LEFT COMPLETE Exam Date: 04/24/20 Exam Time: 2058 REPORT STATUS: Signed X-ray 3 views of the foot. HISTORY: Pain and gangrenous changes of the foot. COMPARISON: Multiple prior foot radiographs including most recent on 03/13/2009. FINDINGS: Status post transmetatarsal amputation of the 2nd-5th metatarsals. There are no osseous lucencies or erosive changes to suggest osteomyelitis. The amputation stump is unremarkable by plain radiograph. There is atherosclerotic calcification of the lower extremity vessels. If there is high clinical suspicion for osteomyelitis, forefoot MRI can be considered for more definitive diagnosis. Signed by: Holly Simpson MD on 04/24/2020 9:35 PM Dictated By: HOLLY SIMPSON MD 34 Transcribed By: SCAR on 04/24/202134 COPY TO: WAYLON NOBLES DO~ Assessment & Plan Medical Decision Making MDM diff dx : gangrene, hemorrhagic bulla, osteomyelitis Assessment & Plan Final Impression: (1) Gangrene of toe (2) Hyperglycemia (3) Osteomyelitis of ankle or foot, left, acute Depart Disposition: ADMITTED Home Meds Active Scripts Cefdinir (OMNICEF) 300 Mg Capsule, 300 MG PO Q48H, #2 TAKE AFTER DIALYSIS TREATMENTS Prov:MEENA GONZALEZ MANGANESE BREAKER 05/15/19 Reported Medications Insulin Detemir (LEVEMIR) 100 Unit/1 Ml Vial, 25 UNITS SC BID 05/12/19 Simvastatin (SIMVASTATIN) 20 Mg Tablet, 20 MG PO HS, EA 05/12/19 Hydralazine Hcl (HYDRALAZINE HCL) 25 Mg Tab, 75 MG PO TID, TAB 05/12/19 Furosemide (LASIX) 40 Mg Tablet, 40 MG PO BID, #30 TAB 05/12/19 Gabapentin (GABAPENTIN) 300 Mg Capsule, 300 MG PO TID, #60 CAP 05/12/19 Carvedilol (CARVEDILOL) 25 Mg Tablet, 25 MG PO BID 05/12/19 Lisinopril (LISINOPRIL) 10 Mg Tablet, 30 MG PO DAILY, #30 TAB 05/12/19 Amlodipine Besylate (AMLODIPINE BESYLATE) 10 Mg Tablet, 10 MG PO DAILY, #30 TAB 05/12/19 WAYLON NOBLES DO Apr 24, 2020 19:49
[2020-04-24] MEDS ORDERED: PIPER-TAZ 3.375 GM 50 ML IV STA (20:08)
[2020-04-24] MEDS ORDERED: MORPHINE SULFATE INJ 4 MG/ML INJ 1ML IV PRN (20:30)
[2020-04-24] MEDS ORDERED: ONDANSETRON HCL INJ 2MG/ML 2ML 2 MG/ML VIAL IV PRN (20:30)
[2020-04-24 20:31] LABS: BASOPHILS % 0.3 % (0.0-1.0); EOSINOPHILS # (AUTO) 0.9 (0.0-0.4); EOSINOPHILS % 10.6 % (0.0-6.0); HEMATOCRIT 31.2 % (38.2-49.6); HEMOGLOBIN 10.6 g/dL (14.0-18.0); LYMPHOCYTES # (AUTO) 1.5 (1.0-3.2); LYMPHOCYTES % 16.7 % (18.0-39.1); MEAN CORPUSCULAR HEMOGLOBIN 30.3 pg (28-32); MEAN CORPUSCULAR VOLUME 89.1 fL (81-99); MONOCYTES # (AUTO) 0.6 (0.2-0.8); MONOCYTES % 6.6 % (4.4-11.3); NEUTROPHILS # (AUTO) 5.8 (2.1-6.9); NEUTROPHILS % 65.3 % (38.7-80.0); PLATELET COUNT 211 x10e3/uL (140-360); RED CELL DISTRIBUTION WIDTH 13.3 % (11.7-14.4)
[2020-04-24 20:43] LABS: ANION GAP 16.6 mmol/L (8-16); CREATININE, SERUM 4.97 mg/dL (0.72-1.25); POTASSIUM 3.6 mmol/L (3.5-5.1)
--- NOTE | 2020-04-24 20:46 | NUR ---
ER MD AND PRIMARY NURSE NOTIFIED OF CRITICAL LAB VALUE, BLOOD GLUCOSE 455.
[2020-04-24] MEDS ORDERED: DEXTROSE 50% SYRINGE 50 ML IV PRN (21:00)
[2020-04-24] MEDS ORDERED: HYDRALAZINE HCL 20 MG/ML VIAL IV PRN (21:15)
[2020-04-24 21:31] LABS: PLATELET ESTIMATE ADEQUATE; PLATELET MORPHOLOGY COMMENT NORMAL; RBC MORPHOLOGY COMMENT NORMAL
--- NOTE | 2020-04-24 21:38 | Diagnostic Imaging Report ---
X-ray 3 views of the foot. HISTORY: Pain and gangrenous changes of the foot. COMPARISON: Multiple prior foot radiographs including most recent on 03/13/2009. FINDINGS: Status post transmetatarsal amputation of the 2nd-5th metatarsals. There are no osseous lucencies or erosive changes to suggest osteomyelitis. The amputation stump is unremarkable by plain radiograph. There is atherosclerotic calcification of the lower extremity vessels. If there is high clinical suspicion for osteomyelitis, forefoot MRI can be considered for more definitive diagnosis. Signed by: Chelsea Kathleen MD on 04/24/2020 9:35 PM
[2020-04-24] MEDS: INSULIN REGULAR, HUMAN 100 UNIT/1 ML 3ML VIAL SQ SCH (21:43)
[2020-04-24 22:00] VITALS: BP 110/53
[2020-04-24] MEDS ORDERED: LEVEMIR FL100 UNIT/1 SC (22:04)
[2020-04-24] MEDS ORDERED: HYDRALAZINE HCL25 MG PO (22:04)
[2020-04-24] MEDS ORDERED: SODIUM CHLORIDE 0.9% 250ML 250 ML ONE (22:32)
[2020-04-25] VITALS (11 sets, daily range): BP systolic 111–136; BP diastolic 61–72
[2020-04-25] MEDS ORDERED: MORPHINE SULFATE 2 MG/ML SYR 1ML IV PRN (00:30)
[2020-04-25 06:38] LABS: BASOPHILS % 0.4 % (0.0-1.0); EOSINOPHILS % 0.3 % (0.0-6.0); HEMATOCRIT 29.9 % (38.2-49.6); HEMOGLOBIN 10.3 g/dL (14.0-18.0); LYMPHOCYTES # (AUTO) 1.6 (1.0-3.2); LYMPHOCYTES % 21.7 % (18.0-39.1); MEAN CORPUSCULAR HEMOGLOBIN 31.2 pg (28-32); MEAN CORPUSCULAR HGB CONC 34.4 g/dL (31-35); MEAN CORPUSCULAR VOLUME 90.6 fL (81-99); MONOCYTES # (AUTO) 0.5 (0.2-0.8); MONOCYTES % 6.4 % (4.4-11.3); NEUTROPHILS # (AUTO) 5.1 (2.1-6.9); NEUTROPHILS % 70.6 % (38.7-80.0); PLATELET COUNT 190 x10e3/uL (140-360); RED CELL DISTRIBUTION WIDTH 13.2 % (11.7-14.4)
[2020-04-25 07:03] LABS: ALBUMIN/GLOBULIN RATIO 0.8 (0.8-2.0); ANION GAP 16.2 mmol/L (8-16); CALCIUM 7.8 mg/dL (8.4-10.2); POTASSIUM 3.2 mmol/L (3.5-5.1)
[2020-04-25] MEDS ORDERED: FAMOTIDINE 20 MG TAB PO SCH (07:30)
[2020-04-25] MEDS: HYDRALAZINE HCL 25 MG TAB PO SCH ×4 (09:00→21:49)
[2020-04-25] MEDS ORDERED: INSULIN GLARGINE 100 UNITS/ML VIAL SQ SCH (09:00)
[2020-04-25] MEDS: CARVEDILOL 12.5 MG TAB PO SCH ×2 (09:17→15:54)
[2020-04-25] MEDS: GABAPENTIN 300 MG CAP PO SCH ×3 (09:17→21:49)
[2020-04-25] MEDS: AMLODIPINE BESYLATE 10 MG TAB PO SCH (09:18)
--- OUTSIDE RECORDS SUMMARY | 2020-04-25 10:18 | XMS REPORT | Clinical Summary ---
Author Author [facility] Organization [facility] ict Address Unknown Phone Unavailable Care Team Providers [employer] Analyst Name Role Phone So Tan MD PCP Milagros Mckenzie NP PCP Allergies No Known Allergies Medications End Date Status Medication Sig Dispensed Refills Start Date Active ASPIRIN 81 mg Take 81 mg by 90 Tab 3 TabIndications: Type II mouth daily. 1 or unspecified type diabetes mellitus without mention of complication, uncontrolled Active blood glucose Check BG 1 Kit 0 meterIndications: Type II every morning 1 or unspecified type before diabetes mellitus without breakfast and mention of complication, 2 hours after uncontrolled dinner Active blood glucose Use as 1 Kit 0 meterIndications: directed.. 6 Diabetes mellitus with other complication, with long-term current use of insulin Active lancets 33 gauge Misc 3 times 100 Each 11 daily. 7 Active pen needle, diabetic Use 2 times 1 Box 11 11/30 (TRUEPLUS) 31 gauge x daily 8 08/18" needlesIndications: Type 2 diabetes mellitus with other specified complication, with long-term current use of insulin Active amLODIPine (NORVASC) 10 Take 1 tablet 90 tablet 3 mg tabletIndications: by mouth 9 Essential hypertension daily. Active insulin detemir U-100 Inject 40 60 mL 1 05/05 (LEVEMIR FLEXTOUCH U-100 Units under 9 INSULN) 100 unit/mL (3 the skin 2 mL) PenIndications: Type times daily. 2 diabetes mellitus with other specified complication, with long-term current use of insulin Active linaGLIPtin (TRADJENTA) 5 Take 1 tablet 90 tablet 1 mg tabletIndications: by mouth 9 Type 2 diabetes mellitus daily. with other specified complication, with long-term current use of insulin Active furosemide (LASIX) 40 mg Take 1 tablet 180 tablet 3 tabletIndications: by mouth 2 9 Hyperlipidemia, times daily. unspecified hyperlipidemia type, CKD (chronic kidney disease) stage 3, GFR 30-59 ml/min Active blood glucose test Use 3 times 100 Each 11 01 stripsIndications: Type 2 daily to test 9 diabetes mellitus with blood sugar. other specified complication, with long-term current use of insulin Active lisinopriL (PRINIVIL, Take 1 tablet 90 tablet 1 ZESTRIL) 40 mg by mouth 9 tabletIndications: daily. Essential hypertension, Hyperlipidemia, unspecified hyperlipidemia type, CKD (chronic kidney disease) stage 3, GFR 30-59 ml/min Active gabapentin (NEURONTIN) Take 1 270 capsule 3 300 mg capsule by 0 capsuleIndications: mouth 3 times Neuropathy daily. Active hydrALAZINE (APRESOLINE) Take 3 810 tablet 3 0 25 mg tabletIndications: tablets by 0 Essential hypertension mouth 3 times daily. Active Miscellaneous Medical by 1 Each 0 /2 Supply MiscIndications: Misc.(Non-Charles 0 Status post below knee g; Combo amputation, unspecified Route) route laterality [facility] facility assessment for Prosthetic care and wound care. Active Miscellaneous Medical by 1 Each 0 04/0 Supply MiscIndications: Misc.(Non-Charles 0 H/O implantation of g; Combo prosthetic limb device Route) route Home PT to train Patient to use his prosthetic limb appropriately . Active simvastatin (ZOCOR) 20 mg Take 1 tablet 90 tablet 1 tabletIndications: by mouth at 0 Hyperlipidemia, bedtime unspecified nightly. hyperlipidemia type Active carvediloL (COREG) 25 mg Take 1 tablet 180 tablet 0 tabletIndications: by mouth 2 0 Essential hypertension times daily (with meals). 05/20/2019 Discontinued (Reorder) blood glucose test strips Use 3 times 100 Each 11 daily to test 7 blood sugar. 05/20/2019 Discontinued (Reorder) lisinopril (PRINIVIL, Take 1 and 135 tablet 3 11/04 ZESTRIL) 20 mg 1/2 tablets 8 tabletIndications: by mouth Essential hypertension, daily. Hyperlipidemia, unspecified hyperlipidemia type, CKD (chronic kidney disease) stage 3, GFR 30-59 ml/min 07/04/2019 Discontinued (Reorder) gabapentin (NEURONTIN) Take 1 270 capsule 3 300 mg capsule by 8 capsuleIndications: mouth 3 times Neuropathy daily. 05/20/2019 Discontinued (Reorder) furosemide (LASIX) 40 mg Take 1 tablet 180 tablet 3 tabletIndications: by mouth 2 8 Hyperlipidemia, times daily. unspecified hyperlipidemia type, CKD (chronic kidney disease) stage 3, GFR 30-59 ml/min 08/16/2019 Discontinued (Reorder) hydrALAZINE (APRESOLINE) Take 3 810 tablet 3 0 25 mg tabletIndications: tablets by 9 Essential hypertension mouth 3 times daily. 05/12/2019 Discontinued (Reorder) simvastatin (ZOCOR) 20 mg Take 1 tablet 90 tablet 1 tabletIndications: by mouth at 9 Hyperlipidemia, bedtime unspecified nightly. hyperlipidemia type 05/20/2019 Discontinued (Reorder) insulin detemir U-100 Inject 25 45 mL 1 10/03 (LEVEMIR FLEXTOUCH U-100 Units under 9 INSULN) 100 unit/mL (3 the skin 2 mL) PenIndications: Type times daily. 2 diabetes mellitus with other specified complication, with long-term current use of insulin 08/16/2019 Discontinued (Reorder) carvedilol (COREG) 25 mg Take 1 tablet 180 tablet 0 tabletIndications: by mouth 2 9 Essential hypertension times daily (with meals). 01/03/2020 Discontinued (Reorder) simvastatin (ZOCOR) 20 mg Take 1 tablet 90 tablet 1 tabletIndications: by mouth at 9 Hyperlipidemia, bedtime unspecified nightly. hyperlipidemia type 05/20/2019 Discontinued (Reorder) lisinopril (PRINIVIL, Take 1 and 135 tablet 3 05/05 ZESTRIL) 20 mg 1/2 tablets 9 tabletIndications: by mouth Essential hypertension, daily. Hyperlipidemia, unspecified hyperlipidemia type, CKD (chronic kidney disease) stage 3, GFR 30-59 ml/min 01/19/2020 tropicamide (MYDRIACYL) Instill 1 15 mL 0 0.5 % ophthalmic Drop in each 0 solutionIndications: Type eye once as 2 diabetes mellitus with needed for up other specified to 1 dose complication, with (for poor long-term current use of retina scan insulin image). 01/03/2020 Discontinued (Reorder) carvediloL (COREG) 25 mg Take 1 tablet 180 tablet 0 tabletIndications: by mouth 2 0 Essential hypertension times daily (with meals). Active Problems Problem Noted Date Type 2 diabetes mellitus treated with insulin 2018 S/P BKA (below knee amputation) unilateral, right Dependence on hemodialysis 04/19/2019 Acute CHF 01/05/2014 Pulmonary edema with congestive heart failure 2013 Hypoxia 01/05/2014 Acute diastolic heart failure 05/26/2011 Peripheral edema 05/26/2011 HTN (hypertension) 05/26/2011 HLD (hyperlipidemia) 05/26/2011 Other and unspecified hyperlipidemia 05/24/2011 Shortness of breath 05/24/2011 CHF exacerbation 05/24/2011 CKD (chronic kidney disease) stage 3, GFR 30-59 ml/mi n 05/24/2011 Diabetes mellitus 03/22/2011 Encounters Care Team Description Date Type Specialty Brooklynn Ortiz DO Medications 01/03/2020 Refill Family Practice So Tan MD Medications 01/03/2020 Refill Family Practice So Tan MD Medications 09/05/2019 Orders Only Family Practice So Tan MD Medications 08/26/2019 Orders Only Family Practice Bayron Rodrigues MD Medications 08/16/2019 Refill Family Practice Brooklynn Ortiz DO Medications 08/16/2019 Refill Family Practice So Tan MD Type 2 diabetes mellitus with other spec ified complication, with long-term current use of insulin (Primary Dx); ESRD (end stage renal disease) on dialysis; Hx of BKA, right; Screen for colon cancer 07/22/2019 Office Visit Family Practice Bayron Rodrigues MD Medications 07/04/2019 Refill Family Practice So Tan MD Type 2 diabetes mellitus with other spec ified complication, with long-term current use of insulin (Primary Dx); Hyperlipidemia, unspecified hyperlipidemia type; CKD (chronic kidney disease) stage 3, GFR 30-59 ml/min; Essential hypertension; Screen for colon cancer; Hypertensive CKD, ESRD on dialysis 05/20/2019 Office Visit Family Practice So Tan MD Medications 05/12/2019 Refill Family Practice So Tan MD Medications 05/02/2019 Refill Family Practice Bayron Rodrigues MD Medications 05/02/2019 Refill Family Practice after 04/24/2019 Immunizations Name Administration Dates Next Due Influenza Vaccine 05/24/2011 (Deferred: Patie nt Refused) Pneumoccoccal 02/22/2011 Family History Medical History Relation Name Comments Diabetes Mother Hypertension Mother Relation Name Status Comments Father Mother Social History Date Tobacco Use Types Packs/Day Years Used Never Smoker Smokeless Tobacco: Never Used Tobacco Cessation: Counseling Given: No Drinks/Week oz/Week Comments Alcohol Use No Food Insecurity Answer Date Recorded Within the past 12 months, you worried that your Never aldair e 10/04/2018 food would run out before you got money to buy more. Within the past 12 months, the food you bought Never true 10/04/2018 just didn't last and you didn't have mo sakshi to get more. Sex Assigned at Date Recorded Not on file Industry Job Start Date Occupation Not on file Not on file Not on file Travel End Travel History Travel Start No recent travel history available. Last Filed Vital Signs Reading Time Taken Comments Vital Sign 132/64 07/22/2019 10:29 AM [employer] Blood Pressure 68 07/22/2019 10:29 AM [employer] Pulse 36.8 C (98.2 F) 07/22/2019 10:29 AM [employer] Temperature 20 07/22/2019 10:29 AM [employer] Respiratory Rate - - Oxygen Saturation - - Inhaled Oxygen Concentration 82.1 kg (181 lb) 05/20/2019 1:35 PM [employer] Weight 165.1 cm (5' 5") 05/20/2019 1:35 PM [employer] Height 30.12 05/20/2019 1:35 PM [employer] Body Mass Index Plan of Treatment Health Maintenance Due Date Last Done Comments Colorectal Cancer Scrn 2008 Annual (FIT/FOBT) Age 50 to 75 DM Retinal Exam (Yearly) 09/05/2019 09/04/2018 (Previously completed - External), 07/20/2016, 04/21/2016, Additional history exists DM Foot Exam (Yearly) 10/05/2019 10/04/2018, 01/06/2017, 03/15/2012, Additional history exists DM HGBA1C (Yearly) 06/21/2020 06/21/2019, 10/10/2018, 11/30/2017, Additional history exists Goals Goal Patient Associated Recent Progress Patient-Stat Aut hor Goal Type Problems ed? 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 Procedures Comments Procedure Name Priority Date/Time Associated Diag nosis CBC Routine 06/21/2019 Hypertensive CK D, ESRD on 11:33 AM [employer] dialysis LIVER PROFILE Routine 06/21/2019 Type 2 diabetes mellitus 11:33 AM [employer] with other specified complication, with long-term current use of insulin CBC/DIFF Routine 06/21/2019 Hypertensive CK D, ESRD on 11:33 AM [employer] dialysis BASIC METABOLIC PANEL Routine 06/21/2019 Type 2 d iabetes mellitus 11:33 AM [employer] with other specified complication, with long-term current use of insulin Essential hypertension HEMOGLOBIN A1C Routine 06/21/2019 Type 2 diabetes mellitus 11:33 AM [employer] with other specified complication, with long-term current use of insulin after 04/24/2019 Results * CBC/Diff (06/21/2019 11:33 AM [employer]) WBC 7.2 4.5 - 12.0 K/uL [facility] RBC 4.39 (L) 4.60 - 6.20 M/uL [facility] Hemoglobin 12.8 (L) 14.0 - 18.0 g/dL [facility] Hematocrit 39.3 (L) 40.0 - 54.0 % [facility] MCV 89.5 82.0 - 92.0 fL [facility] MCH 29.2 27.0 - 31.0 pg [facility] MCHC 32.6 32.0 - 36.0 g/dL [facility] RDW 44.2 (H) 35.1 - 43.9 fL [facility] Platelet 178 150 - 400 K/uL [facility] Mean Platelet 11.2 9.4 - 12.4 fL [facility] Volume [facility] Percent NRBC 0.0 % [facility] Neutrophil 63.5 34.0 - 67.9 % [facility] Lymphs 27.3 21.8 - 50.0 % [facility] Monocytes 8.1 5.3 - 12.0 % [facility] Eos 0.1 (L) 0.8 - 5.0 % [facility] Basos 0.6 0.2 - 1.2 % [facility] Immature 0.4 0.0 - 0.5 % [facility] Granulocytes [facility] Neutrophils 4.56 1.78 - 5.36 K/uL [facility] (Absolute) [facility] Lymphs 1.96 1.32 - 3.57 K/uL [facility] (Absolute) [facility] Monocytes(Absol 0.58 0.30 - 0.82 K/uL [facility] jena) [facility] Eos (Absolute) 0.01 (L) 0.04 - 0.54 K/uL [facility] Baso (Absolute) 0.04 0.01 - 0.08 K/uL [facility] Immature Grans 0.03 0.00 - 0.03 K/uL [facility] (Abs) [facility] Absolute NRBC 0.00 K/uL [facility] Specimen Blood Performing Organization Address [facility] one Number [facility] [address] [place] [address] * Hemoglobin A1C (06/21/2019 11:33 AM [employer]) Hemoglobin A1c 9.6 (H) 4.3 - 6.1 % [facility] Estimated 229 (H) 70 - 110 mg/dL [facility] Average Glucose [facility] Specimen Blood Performing Organization Address [facility] one Number [facility] [address] [place] [address] * Liver Profile (06/21/2019 11:33 AM [employer]) Total Protein 7.1 6.0 - 8.3 g/dL [facility] Bilirubin, 0.5 0.2 - 1.2 mg/dL [facility] Total [facility] Alkaline 68 34 - 104 U/L [facility] Phosphatase [facility] AST 19 13 - 39 U/L [facility] Direct 0.1 0.0 - 0.2 mg/dL [facility] Bilirubin [facility] ALT 25 7 - 52 U/L [facility] Albumin 4.2 4.2 - 5.5 g/dL [facility] Specimen Blood Performing Organization Address [facility] one Number [facility] [address] [place] [address] * Basic Metabolic Panel (06/21/2019 11:33 AM [employer]) Sodium 137 136 - 145 mmol/L [facility] Potassium 4.6 3.5 - 5.1 mmol/L [facility] Chloride 97 (L) 98 - 107 mmol/L [facility] CO2 26 21 - 31 mmol/L [facility] Urea Nitrogen 37.0 (H) 7.0 - 25.0 mg/dL [facility] Creatinine 3.2 (H) 0.7 - 1.3 mg/dL [facility] Glucose 130 (H) 70 - 110 mg/dL [facility] Calcium 7.9 (L) 8.6 - 10.3 mg/dL [facility] GFR, Estimated 20 (L) >=90 mL/min/1.73 m2 [facility] Anion Gap 14 5 - 16 mmol/L [facility] Specimen Blood Performing Organization Address [facility] one Number [facility] [address] [place] [address] [phone] after 04/24/2019 Insurance Type Payer Benefit Subscriber ID Effective Phone Address Plan / Dates Group [facility] xxxxxxxxx 2015-P [phone] [address] MED[address]ARE MEDICARE resent [id number] [place] [phone] Advance Directives Date Inactivated Comments Code Status Date Activated 01/06/2014 5:13 PM Full Code 01/05/2014 4:55 PM 05/26/2011 3:04 PM Full Code 05/24/2011 7:03 PM
--- OUTSIDE RECORDS SUMMARY | 2020-04-25 10:19 | XMS REPORT | Continuity of Care Document ---
Author Author [facility] t Organization [facility] Address [address] [place] [address] Phone Unavailable Care Team Providers Care Epic Application Coordinator Name Role Phone NONSTAFF PCP Unavailable SONYA ARANDA Attphys Unavailable Brooklynn Ortiz DO Attphys Britney THORNE, So Attphys Lilia THORNE, Bayron Attphys RANJIT BALTAZAR Attphys Unavailable SONYA ARANDA Admphys Unavailable Payers Payer Name Policy Type Policy Number Effective Date Expiration Date S kristi [employer] MEDICAREUHC MEDICARE [id number] [address] xxxxxxxxx 2015 00:00:00 [facility] [id number] 2006 00:00:00 [facility] Problems Condition Name Condition Details Condition Category Status Onset Date Resolution Date Last Treatment Date Treating Clinician Comments Source Type 2 diabetes mellitus treated with insulin Type 2 d iabetes mellitus treated with insulin Disease Active 2019-04-19 00:00:00 Merged With [facility] S/P BKA (below knee amputation) unilateral, right S/P BKA (below knee amputation) unilateral, right Disease Active 2019-04-19 00:00:00 Merged With [facility] Dependence on hemodialysis Dependence on hemodialysis Disease Active 2019-04-19 00:00:00 Merged With [facility] Acute CHF Acute CHF Disease Active 2014-01-05 00:00:00 Merged With [facility] Pulmonary edema with congestive heart failure Pulmonar y edema with congestive heart failure Disease Active 2014-01-05 00:00:00 Merged With [facility] Hypoxia Hypoxia Disease Active 2014-01-05 00:00:00 Merged With [facility] Acute diastolic heart failure Acute diastolic heart failure Disease Active 2011-05-26 00:00:00 [facility] Peripheral edema Peripheral edema Disease Active 2011-05-26 00:00:00 Merged With [facility] HTN (hypertension) HTN (hypertension) Disease Active 2011-05-26 00:00:0 0 Merged With [facility] HLD (hyperlipidemia) HLD (hyperlipidemia) Disease Active 00:00:00 Merged With [facility] Other and unspecified hyperlipidemia Other and unspecified h yperlipidemia Disease Active 2011-05-24 00:00:00 Merged With [facility] Shortness of breath Shortness of breath Disease Active 2011-05-24 00:00 :00 Merged [facility] CHF exacerbation CHF exacerbation Disease Active 2011-05-24 00:00:00 [facility]erged [facility] CKD (chronic kidney disease) stage 3, GFR 30-59 ml/min CKD (chronic kidney disease) stage 3, GFR 30-59 ml/min Disease Active 2011-05-24 00:00:00 [facility]erged [facility] Diabetes mellitus Diabetes mellitus Disease Active 2011-03-22 00:00:00 Merged With [facility] Sepsis Sepsis Problem Active [facility] Allergies, Adverse Reactions, Alerts Allergy Name Allergy Type Status Severity Reaction(s) Onset Date Inacti ve Date Treating Clinician Comments Source No Known Allergies DA Active U 2019-03-13 00:00:00 [facility] No Known Allergies DA Active U 2014-10-09 00:00:00 [facility] Family History Family Member Diagnosis Comments Start Date Stop Date Source [facility] Social History Social Habit Start Date Stop Date Quantity Comments Source Sex Assigned At [facility] Alcohol intake 2019-07-22 00:00:00 2019-07-22 00:00:00 Current non-drinker of alcohol (finding) Merged [facility] History SDOH Food Worry 2018-10-04 00:00:00 2018-10-04 00:00:00 1 Merged With [facility] History SDOH Food Scarcity 2018-10-04 00:00:00 2018-10-04 00:00:00 1 Merged With [facility] Smoking Status Start Date Stop Date Source Never smoker Merged [facility] Medications Ordered Medication Name Filled Medication Name Start Date Stop Da te Current Medication? Ordering Clinician Indication Dosage Frequency Signature (SIG) Comments Components Source simvastatin (ZOCOR) 20 mg tablet 2020-01-06 00:00:00 Yes Hyperlipidemia, unspecified hyperlipidemia type 20mg Take 1 t ablet by mouth at bedtime nightly. Merged [facility] carvediloL (COREG) 25 mg tablet 2020-01-06 00:00:00 Yes Essential hypertension 25mg Take 1 tablet by mouth 2 times daily (with me als). [facility] 2019-09-05 00:00:00 Yes H/O implantation of prosthetic limb device by [facility].(Non-D rug; Combo Route) route Home PT to train Patient to use his prosthetic limb appropriately. [facility] 2019-08-26 00:00:00 Yes Status post below knee amputation, unspecified laterality by [facility].(Non-Drug; Combo Route) route intermediate facility assessment for Prosthetic care and wound care. M[facility]ed [facility] hydrALAZINE (APRESOLINE) 25 mg tablet 2019-08-16 00:00:00 Yes Essential hypertension 75mg Take 3 tablets by mouth 3 times daily. Merged [facility] carvediloL (COREG) 25 mg tablet 2019-08-16 00:00:00 00:00:00 No Essential hypertension 25mg Take 1 tablet by mouth 2 times daily (with meals). [facility] tropicamide (MYDRIACYL) 0.5 % ophthalmic solution 2019-07-22 00:00:00 2020-01-19 23:59:00 No Type 2 diabetes remigio itus with other specified complication, with long-term current use of insulin 1[drp] Instill 1 Drop in each eye once as needed for up to 1 dose (for poor retina scan image). Merg[facility] gabapentin (NEURONTIN) 300 mg capsule 2019-07-04 00:00:00 Yes Neuropathy 300mg Take 1 capsule by mouth 3 times daily. Merged [facility] insulin detemir U-100 (LEVEMIR FLEXTOUCH U-100 INSULN) 100 u nit/mL (3 mL) Pen 2019-05-20 00:00:00 Yes Type 2 diabe bradley mellitus with other specified complication, with long-term current use of insulin 40U Q.5D Inject 40 Units under the skin 2 times daily. [facility] linaGLIPtin (TRADJENTA) 5 mg tablet 2019-05-20 00:00:00 Yes Type 2 diabetes mellitus with other specified complication, with long-term current use of insulin 5mg QD Take 1 tablet by mouth daily. Merg[facility] furosemide (LASIX) 40 mg tablet 2019-05-20 00:00:00 Yes CKD (chronic kidney disease) stage 3, GFR 30-59 ml/min 40mg Q.5D Take 1 tablet by mouth 2 times daily. [facility] blood glucose test strips 2019-05-20 00:00:00 Yes Type 2 diabetes mellitus with other specified complication, with long-term current use of insulin Use 3 times daily to test blood sugar. [facility] lisinopriL (PRINIVIL, ZESTRIL) 40 mg tablet 2019-05-20 00:00 :00 Yes CKD (chronic kidney disease) stage 3, GFR 30-59 ml/min 40mg QD Take 1 tablet by mouth daily. Merged [facility] lisinopril (PRINIVIL, ZESTRIL) 20 mg tablet 2018 00:00:00 2019-05-20 00:00:00 No CKD (chronic kidney disease) stage 3, GFR 30-59 ml/min 30mg QD Take 1 and 1/2 tablets by mouth daily. [facility] Cefdinir (Omnicef) 300 Mg Capsule Cefdinir (Omnicef) 300 Mg Capsule 2019-05-15 00:00:00 Yes [employer] 300 Every 48 Hours [facility] simvastatin (ZOCOR) 20 mg tablet 2019-05-13 00:00:00 2019-12 00:00:00 No Hyperlipidemia, unspecified hyperlipidemia type 20mg Take 1 tablet by mouth at bedtime nightly. Merg[facility] carvedilol (COREG) 25 mg tablet 2019-04-08 00:00:00 00:00:00 No Essential hypertension 25mg Take 1 tablet by mouth 2 times daily (with meals). Merged [facility] amLODIPine (NORVASC) 10 mg tablet 2019-01-23 00:00:00 Yes Essential hypertension 10mg QD Take 1 tablet by mouth daily. Merged [facility] insulin detemir U-100 (LEVEMIR FLEXTOUCH U-100 INSULN) 100 u nit/mL (3 mL) Pen 2018-10-16 00:00:00 2019-05-20 00:00:00 No Type 2 d iabetes mellitus with other specified complication, with long-term current use of insulin 25U Q.5D Inject 25 Units under the skin 2 times daily. [facility] simvastatin (ZOCOR) 20 mg tablet 2018-10-04 00:00:00 2019-05 00:00:00 No Hyperlipidemia, unspecified hyperlipidemia type 20mg Take 1 tablet by mouth at bedtime nightly. Merged [facility] hydrALAZINE (APRESOLINE) 25 mg tablet 2018-06-05 00:00 :00 2019-08-16 00:00:00 No Essential hypertension 75mg Take 3 tablets by mouth 3 times daily. Merged [facility] furosemide (LASIX) 40 mg tablet 2018-04-16 00:00:00 00:00:00 No CKD (chronic kidney disease) stage 3, GFR 30-59 ml/min 40mg Q.5D Take 1 tablet by mouth 2 times daily. Merged [facility] gabapentin (NEURONTIN) 300 mg capsule 2018-03-28 00:00 :00 2019-07-04 00:00:00 No Neuropathy 300mg Take 1 capsule by mouth 3 times daily . Merged [facility] pen needle, diabetic (TRUEPLUS) 31 gauge x 3/16" needles 2017-11-30 00:00:00 Yes Type 2 diabetes remigio itus with other specified complication, with long- term current use of insulin Use 2 times daily Merged [facility] lisinopril (PRINIVIL, ZESTRIL) 20 mg tablet 2017 00:00:00 2019-05-20 00:00:00 No CKD (chronic kidney disease) stage 3, GFR 30-59 ml/min 30mg QD Take 1 and 1/2 tablets by mouth daily. [facility] lancets 33 gauge Misc 2017-01-10 00:00:00 Yes 3 times daily. Merged [facility] blood glucose test strips 2017-01-06 00:00:00 2019-05-20 00:00:00 No Use 3 times daily to test blood sugar. [facility] blood glucose meter 2016-01-15 00:00:00 Yes Diabetes mellitus with other complication, with long-term current use of insulin Use as directed.. Merged [facility] ASPIRIN 81 mg Tab 2011-02-22 00:00:00 Yes Type II or unspecified type diabetes mellitus without mention of complication, uncontrolled 81mg QD Take 81 mg by mouth daily. Merged [facility] blood glucose meter 2011-02-22 00:00:00 Yes Type II or unspecified type diabetes mellitus without mention of complication, uncontrolled Check BG every morning before breakfast and 2 hours after dinner Merged [facility] Amlodipine Besylate 10 Mg Tablet Amlodipine Besylate 10 Mg Tablet Yes 10 Daily [facility] Carvedilol 25 Mg Tablet Carvedilol 25 Mg Tablet Yes 25 Twice A Day [facility] Furosemide (Lasix) 40 Mg Tablet Furosemide (Lasix) 40 Mg Tablet Yes 40 Twice A Day [facility] Gabapentin 300 Mg Capsule Gabapentin 300 Mg Capsule Yes 300 Three Times A Day [facility] Hydralazine Hcl 25 Mg Tab Hydralazine Hcl 25 Mg Tab Yes 75 Three Times A Day [facility] Insulin Detemir (Levemir) 100 Unit/1 Ml Vial Insulin D etemir (Levemir) 100 Unit/1 Ml Vial Yes 25 Twice A Day [facility] Lisinopril 10 Mg Tablet Lisinopril 10 Mg Tablet Yes 30 Daily [facility] Simvastatin 20 Mg Tablet Simvastatin 20 Mg Tablet Yes 20 Bedtime [facility] Immunizations Ordered Immunization Name Filled Immunization Name Date Status Comments Source Pneumoccoccal 2011-02-22 00:00:00 Completed [facility] Vital Signs Vital Name Observation Time Observation Value Comments Source Systolic blood pressure 2019-07-22 10:29:00 132 mm[Hg] Merged [facility] Diastolic blood pressure 2019-07-22 10:29:00 64 mm[Hg] Merged [facility] Heart rate 2019-07-22 10:29:00 68 /min [facility] Body temperature 2019-07-22 10:29:00 36.78 Katia Shanae is [facility] Respiratory rate 2019-07-22 10:29:00 20 /min Shanae is [facility] Body height 2019-05-20 13:35:00 165.1 cm [facility] Body weight 2019-05-20 13:35:00 82.101 kg [facility] BMI 2019-05-20 13:35:00 30.12 kg/m2 [facility] Procedures Procedure Date / Time Performed Performing Clinician [facility] e HEMOGLOBIN A1C 2019-06-21 11:33:00 [facility] BASIC METABOLIC PANEL 2019-06-21 11:33:[facility] 2019-06-21 11:33:00 [facility] LIVER PROFILE 2019-06-21 11:33:00 [facility] CBC 2019-06-21 11:33:00 [facility] Plan of Care Planned Activity Planned Date Details Comments Source Future Scheduled Test 2020-06-21 00:00:00 Hemoglobin A1c markos surement (procedure) [code = 17269968] [facility] Scheduled Test 2019-10-05 00:00:00 DM Foot Exam (Year ly) [code = DM Foot Exam (Yearly)] [facility] Scheduled Test 2019-09-05 00:00:00 DM Retinal Exam (Y early) [code = DM Retinal Exam (Yearly)] [facility] Scheduled Test 2008 00:00:00 Screening for montse gnant neoplasm of colon (procedure) [code = 764701628] Merged [facility] Encounters Start Date/Time End Date/Time Encounter Type Admission Type [facility] Care Department Encounter ID Source 2019-07-22 10:28:52 2019-07-22 10:28:52 Outpatient [facility] [id number] Merged [facility] 2019-06-21 11:29:40 2019-06-21 11:29:40 Outpatient [facility] [id number] Merged [facility] 2019-06-21 00:00:00 2019-06-21 00:00:00 Outpatient [facility] [id number] Merged [facility] 2019-06-12 00:00:00 2019-06-12 00:00:00 Outpatient [facility] [id number] Merged [facility] 2019-05-22 00:00:00 2019-05-22 00:00:00 Outpatient [facility] [id number] Merg[facility] 2019-05-20 13:35:20 2019-05-20 13:35:20 Outpatient [facility] [id number] Merged [facility] 2019-05-13 14:18:00 2019-05-15 09:53:00 Discharged Inpatient 1 RANJIT BALTAZAR [facility] [id number] [facility] 2019-04-19 10:21:16 2019-04-19 10:21:16 Outpatient [facility] [id number] Merged [facility] 2019-04-18 00:00:00 2019-04-18 00:00:00 Outpatient [facility] [id number] Merged [facility] 2019-04-02 00:00:00 2019-04-02 00:00:00 Outpatient [facility] [id number] Merged [facility] 2019-03-28 00:00:00 2019-03-28 00:00:00 Outpatient [facility] [id number] Merged [facility] 2018-11-21 00:00:00 2018-11-21 00:00:00 Outpatient [facility] [id number] Merg[facility] 2018-11-08 00:00:00 2018-11-08 00:00:00 Outpatient [facility] [id number] Merged [facility] 2018-10-22 00:00:00 2018-10-22 00:00:00 Outpatient [facility] [id number] Merged [facility] 2018-10-10 10:11:42 2018-10-10 10:11:42 Outpatient [facility] [id number] Merged [facility] 2018-10-04 14:02:06 2018-10-04 14:02:06 Outpatient [facility] [id number] Merged [facility] 2018-04-13 00:00:00 2018-04-13 00:00:00 Outpatient [facility] [id number] Merged [facility] 2018-03-23 00:00:00 2018-03-23 00:00:00 Outpatient [facility] [id number] Merged [facility] 2018-03-23 00:00:00 2018-03-23 00:00:00 Outpatient [facility] [id number] Merged [facility] 2017-12-18 00:00:00 2017-12-18 00:00:00 Outpatient [facility] [id number] Merged [facility] 2017-12-14 00:00:00 2017-12-14 00:00:00 Outpatient [facility] [id number] Merged [facility] 2017-11-30 15:05:47 2017-11-30 15:05:47 Outpatient [facility] [id number] Merged [facility] 2017-11-30 13:32:46 2017-11-30 13:32:46 Outpatient [facility] [id number] Merged [facility] 2017-11-30 00:00:00 2017-11-30 00:00:00 Outpatient [facility] [id number] Merged [facility] 2017-03-20 00:00:00 2017-03-20 00:00:00 Outpatient [facility] [id number] Merged [facility] 2017-03-03 00:00:00 2017-03-03 00:00:00 Outpatient [facility] [id number] Merged [facility] 2017-01-30 00:00:00 2017-01-30 00:00:00 Outpatient [facility] [id number] Merged [facility] 2017-01-19 00:00:00 2017-01-19 00:00:00 Outpatient [facility] [id number] Merged [facility] 2017-01-10 11:03:29 2017-01-10 11:03:29 Outpatient [facility] [id number] Merged [facility] 2017-01-06 15:34:13 2017-01-06 15:34:13 Outpatient [facility] [id number] Merged [facility] 2017-01-06 13:41:52 2017-01-06 13:41:52 Outpatient [facility] [id number] Merged With [facility] Results Test Description Test Time Test Comments Results Result Comments Source FOOT LEFT COMPLETE 2020-04-24 21:32:00 [facility]RES [facility] : 1960 Sex: M [place] [address] Patient Name: TORRES MAI MR #: [id number] : 1960 Age/Sex: 59/M Req #: [id number] Adm Physician: SONYA ARANDA MD Ordered by: WAYLON NOBLES DO Report #: [id number] Location: [facility] Room/Bed: [place] [address] Procedure: [id number] DX/FOOT LEFT COMPLETE Exam Date: 04/24/20 Exam Time: 2058 REPORT STATUS: Signed X-ray 3 views of the foot. HISTORY: Pain and gangrenous changes of the foot. COMPARISON: Multiple prior foot radiographs including most recent on 03/13/2009. FINDINGS: Status post transmetatarsal amputation of the 2nd-5th metatarsals. There are no osseous lucencies or erosive changes to suggest osteomyelitis. The amputation stump is unremarkable by plain radiograph. There is atherosclerotic calcification of the lower extremity vessels. If there is high clinical suspicion for osteomyelitis, forefoot MRI can be considered for more definitive diagnosis. Signed by: Chelsea Simpson MD on 04/24/2020 9:35 PM Dictated By: CHELSEA SIMPSON MD 34 Transcribed By: SCAR on 04/24/202134 COPY TO: WAYLON NOBLES DO CBC/Diff 2019-06-22 08:55:00 Test Item WBC (test code = 6690-2) 7.2 K/uL 4.5-12 RBC (test code = 789-8) 4.39 4.60- 6.20 M/uL L Hemoglobin (test code = 718-7) 12.8 g/dL 14-18 L Hematocrit (test code = 4544-3) 39.3 % 40-54 L MCV (test code = 787-2) 89.5 fL 82-92 MCH (test code = 785-6) 29.2 pg 27-31 MCHC (test code = 786-4) 32.6 g/dL 32-36 RDW (test code = 56549-2) 44.2 fL 35.1-43.9 H Platelet (test code = 777-3) 178 K/uL 150-400 Mean Platelet Volume (test code = 47069-2) 11.2 fL 9.4-12.4 Percent NRBC (test code = 32864860) 0.0 % Neutrophil (test code = 770-8) 63.5 % 34-67.9 Lymphs (test code = 736-9) 27.3 % 21.8-50 Monocytes (test code = 5905-5) 8.1 % 5.3-12 Eos (test code = 713-8) 0.1 % 0.8-5 L Basos (test code = 706-2) 0.6 % 0.2-1.2 Immature Granulocytes (test code = 93827707) 0.4 % 0-0.5 Neutrophils (Absolute) (test code = 07576489) 4.56 K/uL 1.78-5.3 6 Lymphs (Absolute) (test code = 08609586) 1.96 K/uL 1.32-3.57 Monocytes(Absolute) (test code = 59722602) 0.58 K/uL 0.3-0.82 Eos (Absolute) (test code = 29741618) 0.01 K/uL 0.04-0.54 L Baso (Absolute) (test code = 39352042) 0.04 K/uL 0.01-0.08 Immature Grans (Abs) (test code = 13291636) 0.03 K/uL 0-0.03 Absolute NRBC (test code = 32971488) 0.00 K/uL Lab Interpretation (test code = 06188-6) Abnormal [facility] Metabolic [id number] 07:47:00* Test Item Value Reference Range Interpretation Comments Sodium (test code = 2951-2) 137 mmol/L 136-145 Potassium (test code = 2823-3) 4.6 mmol/L 3.5-5.1 Chloride (test code = 2075-0) 97 mmol/L 98-107 L CO2 (test code = 33364236) 26 mmol/L 21-31 Urea Nitrogen (test code = 93764332) 37.0 mg/dL 7-25 H Creatinine (test code = 61523767) 3.2 mg/dL 0.7-1.3 H Glucose (test code = 98802200) 130 mg/dL 70-110 H Calcium (test code = 92464385) 7.9 mg/dL 8.6-10.3 L GFR, Estimated (test code = 04210595) 20 >=90 mL/min/1.73 m2 L Anion Gap (test code = 15314997) 14 mmol/L 5-16 Lab Interpretation (test code = 81674-4) Abnormal [facility] [id number] 07:47:00* Test Item Value Reference Range Interpretation Comments Bilirubin, Total (test code = 2885-2) 0.5 mg/dL 0.2-1.2 Alkaline Phosphatase (test code = 99851001) 68 U/L 34-104 AST (test code = 43854094) 19 U/L 13-39 Direct Bilirubin (test code = 1968-7) 0.1 mg/dL 0-0.2 ALT (test code = 16293098) 25 U/L 7-52 Albumin (test code = 17734-3) 4.2 g/dL 4.2-5.5 Lab Interpretation (test code = 41729-0) Normal [facility] [id number] 06:58:00* Test Item Value Reference Range Interpretation Comments Hemoglobin A1c (test code = 4548-4) 9.6 % 4.3-6.1 H Estimated Average Glucose (test code = 09084869) 229 mg/dL 70-11 0 H Lab Interpretation (test code = 09859-4) Abnormal [facility] HospitalOleehjTWQDGC8108-47-53 10:07:00* Test Item Value Reference Range Interpretation Comments GLUBED (test code = GLUBED) 166 mg/dL 74-106 H Performed by certified basin operator at [facility] Sodium [id number] 03:01:00* Test Item Value Reference Range Interpretation Comments Sodium Level (test code = 2951-2) 132 136-145 L [facility]assium Bciyv2499-41-30 03:01:00* Test Item Value Reference Range Interpretation Comments Potassium Level (test code = 2823-3) 4.1 3.5-5.1 [facility] HospitalChloride [id number] 03:01:00* Test Item Value Reference Range Interpretation Comments Chloride Level (test code = 2075-0) 96 98-107 L [facility] HospitalCarbon Dioxide [id number] 03:01:00* Test Item Value Reference Range Interpretation Comments Carbon Dioxide Level (test code = 2028-9) 22 22-29 [facility] HospitalAnion [id number] 03:01:00* Test Item Value Reference Range Interpretation Comments Anion Gap (test code = 28518-0) 18.1 8-16 H [facility] HospitalBlood Urea [id number] 03:01:00* Test Item Value Reference Range Interpretation Comments Blood Urea Nitrogen (test code = 3094-0) 37 7-26 H [facility] HospitalCreatinine2019-12-11 03:01:00* Test Item Value Reference Range Interpretation Comments Creatinine (test code = 2160-0) 3.45 0.72-1.25 H [facility] HospitalBUN/Creatinine [id number] 03:01:00* Test Item Value Reference Range Interpretation Comments BUN/Creatinine Ratio (test code = 3097-3) 11 6-25 [facility] HospitalEstimat Glomerular Filtration Rate 2019-05-15 03:01:00* Test Item Value Reference Range Interpretation Comments Estimat Glomerular Filtration Rate (test code = 616918856) 18 >60 L Ranges were taken from the National Kidney Disease Education Program and the [facility] literature.Reference ranges:60 or greater: Zjabys14-83 ( for 3 consecutive months): Chronic kidney disease 15 or less: Kidney failureMemorial Hermann Pearland HospitalGlucose Ybboa1595-38-15 03:01:00* Test Item Value Reference Range Interpretation Comments Glucose Level (test code = OJV5796) 226 74-118 H [facility] HospitalCalcium Poehb0538-24-88 03:01:00* Test Item Value Reference Range Interpretation Comments Calcium Level (test code = 43633-4) 8.6 8.4-10.2 [facility] HospitalWhite Blood Yxyia8632-20-04 02:46:00* Test Item Value Reference Range Interpretation Comments White Blood Count (test code = 6690-2) 4.61 4.8-10.8 L [facility] HospitalRed Blood Pkrca8740-83-38 02:46:00* Test Item Value Reference Range Interpretation Comments Red Blood Count (test code = 789-8) 3.33 4.3-5.7 L [facility] HospitalHemoglobin2019-12-11 02:46:00* Test Item Value Reference Range Interpretation Comments Hemoglobin (test code = 66674-6) 10.0 14.0-18.0 L [facility] HospitalHematocrit2019-12-11 02:46:00* Test Item Value Reference Range Interpretation Comments Hematocrit (test code = 4544-3) 29.5 38.2-49.6 L [facility] [facility] Corp[facility] [id number] 02:46:00* Test Item Value Reference Range Interpretation Comments Mean Corpuscular Volume (test code = 787-2) 88.6 81-99 [facility] HospitalMean Corpuscular Mgpowqfdkp7687-68-72 02:46:00* Test Item Value Reference Range Interpretation Comments Mean Corpuscular Hemoglobin (test code = 785-6) 30.0 28-32 [facility] HospitalMean Corpuscular Hemoglobin Concent 2019-05-15 02:46:00* Test Item Value Reference Range Interpretation Comments Mean Corpuscular Hemoglobin Concent (test code = 786-4) 33.9 31-35 [facility] HospitalRed Cell Distribution Kemir8811-13-92 02:46:00* Test Item Value Reference Range Interpretation Comments Red Cell Distribution Width (test code = 94461-8) 14.0 11.7 -14.4 [facility] HospitalPlatelet Rekhr4650-24-98 02:46:00* Test Item Value Reference Range Interpretation Comments Platelet Count (test code = 777-3) 123 140-360 L [facility] HospitalNeutrophils (%) (Auto)2019-05-15 02:46:00 * Test Item Value Reference Range Interpretation Comments Neutrophils (%) (Auto) (test code = 07356-3) 58.1 38.7-80.0 [facility] HospitalLymphocytes (%) (Auto)2019-05-15 02:46:00 * Test Item Value Reference Range Interpretation Comments Lymphocytes (%) (Auto) (test code = 736-9) 21.0 18.0-39.1 [facility] HospitalMonocytes (%) (Auto)2019-05-15 02:46:00* Test Item Value Reference Range Interpretation Comments Monocytes (%) (Auto) (test code = 5905-5) 17.8 4.4-11.3 H [facility] HospitalEosinophils (%) (Auto)2019-05-15 02:46:00 * Test Item Value Reference Range Interpretation Comments Eosinophils (%) (Auto) (test code = 713-8) 0.7 0.0-6.0 [facility] HospitalBasophils (%) (Auto)2019-05-15 02:46:00* Test Item Value Reference Range Interpretation Comments Basophils (%) (Auto) (test code = 706-2) 0.4 0.0-1.0 [facility] HospitalIM GRANULOCYTES %2019-05-15 02:46:00* Test Item Value Reference Range Interpretation Comments IM GRANULOCYTES % (test code = IM GRANULOCYTES %) 2.0 0.0- 1.0 H [facility] HospitalNeutrophils # (Auto)2019-05-15 02:46:00* Test Item Value Reference Range Interpretation Comments Neutrophils # (Auto) (test code = 751-8) 2.7 2.1-6.9 [facility] HospitalLymphocytes # (Auto)2019-05-15 02:46:00* Test Item Value Reference Range Interpretation Comments Lymphocytes # (Auto) (test code = 32639-6) 1.0 1.0-3.2 [facility] HospitalMonocytes # (Auto)2019-05-15 02:46:00* Test Item Value Reference Range Interpretation Comments Monocytes # (Auto) (test code = 742-7) 0.8 0.2-0.8 [facility] HospitalEosinophils # (Auto)2019-05-15 02:46:00* Test Item Value Reference Range Interpretation Comments Eosinophils # (Auto) (test code = 711-2) 0.0 0.0-0.4 [facility] HospitalBasophils # (Auto)2019-05-15 02:46:00* Test Item Value Reference Range Interpretation Comments Basophils # (Auto) (test code = 704-7) 0.0 0.0-0.1 [facility] HospitalAbsolute Immature Granulocyte (auto 2019-05-15 02:46:00* Test Item Value Reference Range Interpretation Comments Absolute Immature Granulocyte (auto (bradley t code = Absolute Immature Granulocyte (auto) 0.09 0-0.1 [facility] HospitalBlood Uawgjgd6691-84-93 21:27:00* Test Item Value Reference Range Interpretation Comments Blood Culture (test code = 83661079) NO GROWTH AFTER 72 HOURS [facility] HospitalBedside Jphuyqv5534-14-14 15:40:00* Test Item Value Reference Range Interpretation Comments Bedside Glucose (test code = 48054-3) 232 70-120 H Meter ID: [id number] [facility] HospitalUrine Culture 2019-05-14 11:14:00* Test Item Value Reference Range Interpretation Comments Urine Culture (test code = 630-4) No Result Data Provided [facility] HospitalMagnesium Kgaoq5747-65-02 04:36:00* Test Item Value Reference Range Interpretation Comments Magnesium Level (test code = 69296-8) 1.8 1.3-2.1 [facility] HospitalLactic Acid Bjosz2264-79-57 07:32:00* Test Item Value Reference Range Interpretation Comments Lactic Acid Level (test code = Lactic Acid Level) 1.6 0.5- 2.0 [facility] HospitalInfluenza Virus Types A,B Antigen 2019-05-13 07:18:00* Test Item Value Reference Range Interpretation Comments Influenza Virus Types A,B Antigen (test code = 69105-5) NEGATIVE NEGATIVE [facility] HospitalGroup A Streptococcus Jnrvtd4656-70-28 07:17:00* Test Item Value Reference Range Interpretation Comments Group A Streptococcus Screen (test code = 70920-3) NEGATIVE NEG ATIVE [facility] HospitalThyroid Stimulating Hormone (TSH) 2019-05-13 01:52:00* Test Item Value Reference Range Interpretation Comments Thyroid Stimulating Hormone (TSH) (test code = 29882-3) 1.811 0.350-4.940 [facility] HospitalHemoglobin A1c Udhosux9348-99-35 01:22:00 * Test Item Value Reference Range Interpretation Comments Hemoglobin A1c Percent (test code = Hemoglobin A1c Percent) 7.9 4.0-7.0 H [facility] HospitalDifferential Total Cells Counted 2019-05-12 20:20:00* Test Item Value Reference Range Interpretation Comments Differential Total Cells Counted (test code = Differen tial Total Cells Counted) 100 [facility] HospitalNeutrophils % (Manual)2019-05-12 20:20:00 * Test Item Value Reference Range Interpretation Comments Neutrophils % (Manual) (test code = 90770-4) 92 40-74 H [facility] HospitalLymphocytes % (Manual)2019-05-12 20:20:00 * Test Item Value Reference Range Interpretation Comments Lymphocytes % (Manual) (test code = 737-7) 6 19-48 L [facility] HospitalMonocytes % (Manual)2019-05-12 20:20:00* Test Item Value Reference Range Interpretation Comments Monocytes % (Manual) (test code = 744-3) 2 3.4-9.0 L [facility] HospitalPlatelet Ntsqrkgy7394-17-40 20:20:00* Test Item Value Reference Range Interpretation Comments Platelet Estimate (test code = 02607-7) SLIGHTLY DECREASED [facility] HospitalPlatelet Morphology Mgixotj7996-60-62 20:20:00* Test Item Value Reference Range Interpretation Comments Platelet Morphology Comment (test code = 24791-0) NORMAL [facility] HospitalRed Cell Morphology Ogzuqwe8246-82-26 20:20:00* Test Item Value Reference Range Interpretation Comments Red Cell Morphology Comment (test code = 6742-1) NORMAL [facility] HospitalUrine [id number] 23:13:00* Test Item Value Reference Range Interpretation Comments Urine WBC (test code = 5821-4) >50 0-5 H [facility] HospitalUrine CBP8918-26-36 23:13:00* Test Item Value Reference Range Interpretation Comments Urine RBC (test code = 97962-1) >50 0-5 H [facility] HospitalUrine Wpwomnti2386-10-52 23:13:00* Test Item Value Reference Range Interpretation Comments Urine Bacteria (test code = 83958-5) MANY NONE H [facility] HospitalUrine Epithelial Vityn4879-27-51 23:13:00 * Test Item Value Reference Range Interpretation Comments Urine Epithelial Cells (test code = 95452-4) MANY NONE [facility] HospitalUrine Xqiml0134-78-82 22:50:00* Test Item Value Reference Range Interpretation Comments Urine Color (test code = 5778-6) YELLOW YELLOW [facility] HospitalUrine Cydaqhj2666-87-34 22:50:00* Test Item Value Reference Range Interpretation Comments Urine Clarity (test code = 67637-5) CLOUDY CLEAR H [facility] HospitalUrine Specific Jynygrd1083-05-73 22:50:00 * Test Item Value Reference Range Interpretation Comments Urine Specific [place] (test code = 5811-5) 1.020 1.010-1.02 5 [facility] HospitalUrine aI9494-26-10 22:50:00* Test Item Value Reference Range Interpretation Comments Urine pH (test code = 24004-5) 6 5-7 [facility] HospitalUrine Leukocyte Dtxiqdeo9825-94-53 22:50:00* Test Item Value Reference Range Interpretation Comments Urine Leukocyte Esterase (test code = 5799-2) NEGATIVE NEGATIVE [facility] HospitalUrine Ubmifsw5156-57-86 22:50:00* Test Item Value Reference Range Interpretation Comments Urine Nitrite (test code = 31111-7) NEGATIVE NEGATIVE [facility] HospitalUrine Xovviio0524-64-37 22:50:00* Test Item Value Reference Range Interpretation Comments Urine Protein (test code = 5804-0) 2+ NEGATIVE H [facility] HospitalUrine Glucose (UA)2019-05-11 22:50:00* Test Item Value Reference Range Interpretation Comments Urine Glucose (UA) (test code = 2349-9) NEGATIVE NEGATIVE [facility] HospitalUrine Wurcjaz6301-27-74 22:50:00* Test Item Value Reference Range Interpretation Comments Urine Ketones (test code = 87534-6) NEGATIVE NEGATIVE [facility] HospitalUrine Tyduvdocwxrc0347-64-61 22:50:00* Test Item Value Reference Range Interpretation Comments Urine Urobilinogen (test code = 20506-8) 0.2 0.2-1 [facility] HospitalUrine Zoymclqnt4483-69-60 22:50:00* Test Item Value Reference Range Interpretation Comments Urine Bilirubin (test code = 1978-6) NEGATIVE NEGATIVE [facility] HospitalUrine Ynjno2066-50-79 22:50:00* Test Item Value Reference Range Interpretation Comments Urine Blood (test code = 60333-8) 3+ NEGATIVE [facility] HospitalCHEST SINGLE (PORTABLE)2019-05-11 22:22:00 [place] [address] Patient Name: TORRES MAI MR #: [id number] : 1960 Age/Sex: 58/M Req #: [id number] Adm Physician: Ordered by: 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 LUNGS: Lungs are well inflated. There is no evidence of pneumonia or pu lmonary edema. PLEURA: No pleural effusion or pneumothorax. HEART AND MEDIASTINUM: The cardiomediastinal silhouette is unremarkable. BONES AND SOFT TISSUES: No acute osseous lesion. Soft tissues are unremarkable. UPPER ABDOMEN: No free air under the diaphragm. IMPRESSION: No ac rosa thoracic abnormality. Signed by: Dr. Reyna Allen MD on 05/11/2019 10:22 PM Dictated By: REYNA ALLEN MD 21 Transcribed By: SCAR on 05/11/192221 COPY TO: SUKHDEEP AGUILAR NP Band Neutrophils %2019-05-11 21:51:00* Test Item Value Reference Range Interpretation Comments Band Neutrophils % (test code = 764-1) 5 [facility] HospitalTotal Kthoplqqc2920-28-92 21:48:00* Test Item Value Reference Range Interpretation Comments Total Bilirubin (test code = 1975-2) 1.1 0.2-1.2 [facility] HospitalAspartate Amino Transf (AST/SGOT) 2019-05-11 21:48:00* Test Item Value Reference Range Interpretation Comments Aspartate Amino Transf (AST/SGOT) (test code = Aspartate Amino Transf (AST/SGOT)) 27 5-34 [facility] HospitalAlanine Aminotransferase (ALT/SGPT) 2019-05-11 21:48:00* Test Item Value Reference Range Interpretation Comments Alanine Aminotransferase (ALT/SGPT) (test code = 1742-6) 39 0-55 [facility] HospitalTotal Zecfbxa1393-06-58 21:48:00* Test Item Value Reference Range Interpretation Comments Total Protein (test code = 2885-2) 6.9 6.5-8.1 [facility] HospitalAlbumin2019-12-07 21:48:00* Test Item Value Reference Range Interpretation Comments Albumin (test code = 1751-7) 3.2 3.5-5.0 L [facility] HospitalGlobulin2019-12-07 21:48:00* Test Item Value Reference Range Interpretation Comments Globulin (test code = 80614-3) 3.7 2.3-3.5 H [facility] HospitalAlbumin/Globulin Hvfjh3245-03-70 21:48:00 * Test Item Value Reference Range Interpretation Comments Albumin/Globulin Ratio (test code = 1759-0) 0.9 0.8-2.0 [facility] HospitalAlkaline Iifolmfbczs1067-95-19 21:48:00* Test Item Value Reference Range Interpretation Comments Alkaline Phosphatase (test code = 6768-6) 83 40-150 [facility] HospitalGLUBED2019-11-18 08:40:00* Test Item Value Reference Range Interpretation Comments GLUBED (test code = GLUBED) 190 mg/dL 74-106 H Performed by certified basin operator at [facility] ([facility]) [id number] 08:04:00* Test Item Value Reference Range Interpretation Comments POTASSIUM (test code = K) 3.8 mmol/L 3.5-5.1 N COMPREHENSIVE METABOLIC [id number] 12:37:00* Test Item Value Reference Range Interpretation Comments SODIUM (test code = NA) 140 mmol/L 136-145 N POTASSIUM (test code = K) 4.1 mmol/L 3.5-5.1 N CHLORIDE (test code = CL) 102.0 mmol/L 98-107 N CARBON DIOXIDE (test code = CO2) 30.0 mmol/L 21-32 N ANION GAP (test code = GAP) 12.1 10-20 N GLUCOSE (test code = GLU) 166 mg/dL 74-106 H BLOOD UREA NITROGEN (test code = BUN) 22 mg/dL 7-18 H GLOMERULAR FILTRATION RATE (test code = GFR) 26 mL/min >=60 Estimated GFR by using Modified MDRD formula.Chronic kidney disease is defined as either kidney damageor GFR <60 mL/min/1.73 m2 for >3 months. CREATININE (test code = CREAT) 2.50 mg/dL 0.7-1.3 H BUN/CREATININE RATIO (test code = BUN/CREA) 8.9 10-20 L TOTAL PROTEIN (test code = PROT) 7.9 gram/dL 6.4-8.2 N ALBUMIN (test code = ALB) 3.6 g/dL 3.4-5.0 N GLOBULIN (test code = GLOB) 4.3 gram/dL 2.7-4.2 H ALBUMIN/GLOBULIN RATIO (test code = A/G) 0.8 0.75-1.50 N CALCIUM (test code = CA) 8.9 mg/dL 8.5-10.1 N BILIRUBIN TOTAL (test code = BILT) 0.60 mg/dL 0.0-1.0 N SGOT/AST (test code = AST) 19 IUnit/L 15-37 N SGPT/ALT (test code = ALT) 40 IUnit/L 12-78 N ALKALINE PHOSPHATASE TOTAL (test code = ALKP) 81 IUnit/L 45-117 N Note change in reference range due to change in reagent. PROTHROMBIN [id number] 12:24:00* Test Item Value Reference Range Interpretation Comments PROTHROMBIN TIME PATIENT (test code = PTP) 11.8 seconds 9.0-14.0 N INTERNATIONAL NORMAL RATIO (test code = INR) 1.0 0.8-1.2 N The therapeutic range for oral anticoagulant therapy [...] Mechanical prosthetic heart valves (2.5-3.5) THROMBOPLASTIN TIME [id number] 12:24:00* Test Item Value Reference Range Interpretation Comments THROMBOPLASTIN TIME PARTIAL (test code = PTT) 35.6 seconds 25.0-36. 5 N CBC W/AUTO [id number] 12:15:00* Test Item Value Reference Range Interpretation Comments WHITE BLOOD CELL (test code = WBC) 6.5 K/mm3 4.5-12.5 N RED BLOOD CELL (test code = RBC) 3.66 mill/mm3 4.0-5.8 L HEMOGLOBIN (test code = HGB) 11.1 gram/dL 13.0-17.5 L HEMATOCRIT (test code = HCT) 33.2 % 42.0-52.0 L MEAN CELL VOLUME (test code = MCV) 90.7 fL 80-98 N MEAN CELL HGB (test code = MCH) 30.3 picogram 27.0-33.0 N MEAN CELL HGB CONCETRATION (test code = MCHC) 33.4 gram/dL 33.0-36. 0 N RED CELL DISTRIBUTION WIDTH (test code = RDW) 15.2 % 11.6-16. 2 N RED CELL DISTRIBUTION WIDTH SD (test code = RDW-SD) 49.3 fL 37 .0-51.0 N PLATELET COUNT (test code = PLT) 192 K/mm3 150-450 N MEAN PLATELET VOLUME (test code = MPV) 10.0 fL 6.7-11.0 N NEUTROPHIL % (test code = NT%) 67.4 % 39.0-69.0 N IMMATURE GRANULOCYTE % (test code = IG%) 0.6 % 0.0-5.0 N LYMPHOCYTE % (test code = LY%) 22.0 % 25.0-55.0 L MONOCYTE % (test code = MO%) 8.9 % 0.0-10.0 N EOSINOPHIL % (test code = EO%) 0.3 % 0.0-5.0 N BASOPHIL % (test code = BA%) 0.8 % 0.0-1.0 N NUCLEATED RBC % (test code = NRBC%) 0.0 % 0-0 N NEUTROPHIL # (test code = NT#) 4.41 K/mm3 1.8-7.7 N IMMATURE GRANULOCYTE # (test code = IG#) 0.04 x10 3/uL 0-0.03 H LYMPHOCYTE # (test code = LY#) 1.44 K/mm3 1.0-5.0 N MONOCYTE # (test code = MO#) 0.58 K/mm3 0-0.8 N EOSINOPHIL # (test code = EO#) 0.02 K/mm3 0.0-0.5 N BASOPHIL # (test code = BA#) 0.05 K/mm3 0.0-0.2 N NUCLEATED RBC # (test code = NRBC#) 0.00 K/mm3 0.0-0.1 N MANUAL DIFF REQUIRED (test code = MDIFF) NO [id number] 11:32:00* Test Item Value Reference Range Interpretation Comments GLUBED (test code = GLUBED) 243 mg/dL 74-106 H Performed by certified basin operator at [facility] ([facility]) [id number] 07:20:00* Test Item Value Reference Range Interpretation Comments GLUBED (test code = GLUBED) 156 mg/dL 74-106 H Performed by certified basin operator at [facility]) [id number] 20:11:00* Test Item Value Reference Range Interpretation Comments GLUBED (test code = GLUBED) 277 mg/dL 74-106 H Performed by certified basin operator at [facility]) [id number] 16:38:00* Test Item Value Reference Range Interpretation Comments GLUBED (test code = GLUBED) 200 mg/dL 74-106 H Performed by certified basin operator at [facility]) CBC W/AUTO [id number] 13:41:00* Test Item Value Reference Range Interpretation Comments WHITE BLOOD CELL (test code = WBC) 9.0 K/mm3 4.5-12.5 N RED BLOOD CELL (test code = RBC) 2.90 mill/mm3 4.0-5.8 L HEMOGLOBIN (test code = HGB) 8.6 gram/dL 13.0-17.5 L HEMATOCRIT (test code = HCT) 27.9 % 42.0-52.0 L MEAN CELL VOLUME (test code = MCV) 96.2 fL 80-98 N MEAN CELL HGB (test code = MCH) 29.7 picogram 27.0-33.0 N MEAN CELL HGB CONCETRATION (test code = MCHC) 30.8 gram/dL 33.0-36. 0 L RED CELL DISTRIBUTION WIDTH (test code = RDW) 17.5 % 11.6-16. 2 H RED CELL DISTRIBUTION WIDTH SD (test code = RDW-SD) 60.9 fL 37 .0-51.0 H PLATELET COUNT (test code = PLT) 165 K/mm3 150-450 N MEAN PLATELET VOLUME (test code = MPV) 10.9 fL 6.7-11.0 N NEUTROPHIL % (test code = NT%) 65.0 % 39.0-69.0 N IMMATURE GRANULOCYTE % (test code = IG%) 1.2 % 0.0-5.0 N LYMPHOCYTE % (test code = LY%) 18.3 % 25.0-55.0 L MONOCYTE % (test code = MO%) 6.1 % 0.0-10.0 N EOSINOPHIL % (test code = EO%) 9.0 % 0.0-5.0 H BASOPHIL % (test code = BA%) 0.4 % 0.0-1.0 N NUCLEATED RBC % (test code = NRBC%) 0.0 % 0-0 N NEUTROPHIL # (test code = NT#) 5.87 K/mm3 1.8-7.7 N IMMATURE GRANULOCYTE # (test code = IG#) 0.11 x10 3/uL 0-0.03 H LYMPHOCYTE # (test code = LY#) 1.65 K/mm3 1.0-5.0 N MONOCYTE # (test code = MO#) 0.55 K/mm3 0-0.8 N EOSINOPHIL # (test code = EO#) 0.81 K/mm3 0.0-0.5 H BASOPHIL # (test code = BA#) 0.04 K/mm3 0.0-0.2 N NUCLEATED RBC # (test code = NRBC#) 0.00 K/mm3 0.0-0.1 N MANUAL DIFF REQUIRED (test code = MDIFF) NO BASIC METABOLIC [id number] 13:23:00* Test Item Value Reference Range Interpretation Comments SODIUM (test code = NA) 142 mmol/L 136-145 N POTASSIUM (test code = K) 4.1 mmol/L 3.5-5.1 N CHLORIDE (test code = CL) 102.0 mmol/L 98-107 N CARBON DIOXIDE (test code = CO2) 27.0 mmol/L 21-32 N ANION GAP (test code = GAP) 17.1 10-20 N GLUCOSE (test code = GLU) 294 mg/dL 74-106 H BLOOD UREA NITROGEN (test code = BUN) 39 mg/dL 7-18 H GLOMERULAR FILTRATION RATE (test code = GFR) 15 mL/min >=60 Estimated GFR by using Modified MDRD formula.Chronic kidney disease is defined as either kidney damageor GFR <60 mL/min/1.73 m2 for >3 months. CREATININE (test code = CREAT) 4.20 mg/dL 0.7-1.3 H BUN/CREATININE RATIO (test code = BUN/CREA) 9.3 10-20 L CALCIUM (test code = CA) 7.9 mg/dL 8.5-10.1 L - XR SWLW FUNC W/C [id number] 11:32:00 FAX: Rojelio Padron [place]: St: ADM Name: Italo TORRES MCKEON [facility] : [birth year] Age/S: 58/M [address] [facility] Unit #: [id number] Loc: V.[address] [place] [address] Phys: Rojelio Saldana jeny [facility] DO Acct: [id number] Dis Date: Status: ADM IN PHONE #: [phone] Exam Date: 03/29/2019 1009 FAX #: [phone] Reason: ASSES SWALLOW EXAMS: CPT CODE: [id number] XR SWLW FUNC W/C V 31805 HISTORY: Aspiration. COMPARISON: March 21, 2019. This [...] by: Tima Rios M.D. CC: Rojelio Saldana DO Technologist: RT BRIA(Vick) Trnscrd Date/Time/By: 03/29/2019 (1132) : By: [email or web address] Orig Print D/T : S: 03/29/2019 (0964) PAGE 1 Sig moy Report [id number] 11:15:00* Test Item Value Reference Range Interpretation Comments GLUBED (test code = GLUBED) 295 mg/dL 74-106 H Performed by certified basin operator at [facility]) [id number] 07:08:00* Test Item Value Reference Range Interpretation Comments GLUBED (test code = GLUBED) 155 mg/dL 74-106 H Performed by certified basin operator at [facility]) [id number] 20:19:00* Test Item Value Reference Range Interpretation Comments GLUBED (test code = GLUBED) 276 mg/dL 74-106 H Performed by certified basin operator at [facility]) [id number] 16:06:00* Test Item Value Reference Range Interpretation Comments GLUBED (test code = GLUBED) 186 mg/dL 74-106 H Performed by certified basin operator at [facility]) [id number] 11:27:00* Test Item Value Reference Range Interpretation Comments GLUBED (test code = GLUBED) 206 mg/dL 74-106 H Performed by certified basin operator at [facility]) [id number] 08:26:00* Test Item Value Reference Range Interpretation Comments GLUBED (test code = GLUBED) 138 mg/dL 74-106 H Performed by certified basin operator at [facility]) [id number] 07:19:00* Test Item Value Reference Range Interpretation Comments GLUBED (test code = GLUBED) 71 mg/dL 74-106 L Performed by certified basin operator at [facility]) [id number] 20:27:00* Test Item Value Reference Range Interpretation Comments GLUBED (test code = GLUBED) 170 mg/dL 74-106 H Performed by certified basin operator at [facility]) [id number] 16:41:00* Test Item Value Reference Range Interpretation Comments GLUBED (test code = GLUBED) 230 mg/dL 74-106 H Performed by certified basin operator at [facility]) BASIC METABOLIC [id number] 13:13:00* Test Item Value Reference Range Interpretation Comments SODIUM (test code = NA) 141 mmol/L 136-145 N POTASSIUM (test code = K) 4.5 mmol/L 3.5-5.1 N CHLORIDE (test code = CL) 104.0 mmol/L 98-107 N CARBON DIOXIDE (test code = CO2) 27.0 mmol/L 21-32 N ANION GAP (test code = GAP) 14.5 10-20 N GLUCOSE (test code = GLU) 301 mg/dL 74-106 H BLOOD UREA NITROGEN (test code = BUN) 44 mg/dL 7-18 H GLOMERULAR FILTRATION RATE (test code = GFR) 15 mL/min >=60 Estimated GFR by using Modified MDRD formula.Chronic kidney disease is defined as either kidney damageor GFR <60 mL/min/1.73 m2 for >3 months. CREATININE (test code = CREAT) 4.00 mg/dL 0.7-1.3 H BUN/CREATININE RATIO (test code = BUN/CREA) 11.0 10-20 N CALCIUM (test code = CA) 8.5 mg/dL 8.5-10.1 N PATIENT NOT IN ROOMBASIC METABOLIC [id number] 13:05:00* Test Item Value Reference Range Interpretation Comments SODIUM (test code = NA) 141 mmol/L 136-145 N POTASSIUM (test code = K) 4.5 mmol/L 3.5-5.1 N CHLORIDE (test code = CL) 104.0 mmol/L 98-107 N CARBON DIOXIDE (test code = CO2) mmol/L 21-32 ANION GAP (test code = GAP) 10-20 GLUCOSE (test code = GLU) mg/dL 74-106 BLOOD UREA NITROGEN (test code = BUN) mg/dL 7-18 GLOMERULAR FILTRATION RATE (test code = GFR) mL/min >=60 CREATININE (test code = CREAT) mg/dL 0.7-1.3 BUN/CREATININE RATIO (test code = BUN/CREA) 10-20 CALCIUM (test code = CA) mg/dL 8.5-10.1 PATIENT NOT IN ROOMCBC W/AUTO [id number] 12:44:00* Test Item Value Reference Range Interpretation Comments WHITE BLOOD CELL (test code = WBC) 8.1 K/mm3 4.5-12.5 N RED BLOOD CELL (test code = RBC) 2.98 mill/mm3 4.0-5.8 L HEMOGLOBIN (test code = HGB) 8.9 gram/dL 13.0-17.5 L HEMATOCRIT (test code = HCT) 28.5 % 42.0-52.0 L MEAN CELL VOLUME (test code = MCV) 95.6 fL 80-98 N MEAN CELL HGB (test code = MCH) 29.9 picogram 27.0-33.0 N MEAN CELL HGB CONCETRATION (test code = MCHC) 31.2 gram/dL 33.0-36. 0 L RED CELL DISTRIBUTION WIDTH (test code = RDW) 17.2 % 11.6-16. 2 H RED CELL DISTRIBUTION WIDTH SD (test code = RDW-SD) 58.8 fL 37 .0-51.0 H PLATELET COUNT (test code = PLT) 186 K/mm3 150-450 N MEAN PLATELET VOLUME (test code = MPV) 10.1 fL 6.7-11.0 N NEUTROPHIL % (test code = NT%) 63.4 % 39.0-69.0 N IMMATURE GRANULOCYTE % (test code = IG%) 1.6 % 0.0-5.0 N LYMPHOCYTE % (test code = LY%) 18.9 % 25.0-55.0 L MONOCYTE % (test code = MO%) 5.5 % 0.0-10.0 N EOSINOPHIL % (test code = EO%) 10.1 % 0.0-5.0 H BASOPHIL % (test code = BA%) 0.5 % 0.0-1.0 N NUCLEATED RBC % (test code = NRBC%) 0.0 % 0-0 N NEUTROPHIL # (test code = NT#) 5.15 K/mm3 1.8-7.7 N IMMATURE GRANULOCYTE # (test code = IG#) 0.13 x10 3/uL 0-0.03 H LYMPHOCYTE # (test code = LY#) 1.54 K/mm3 1.0-5.0 N MONOCYTE # (test code = MO#) 0.45 K/mm3 0-0.8 N EOSINOPHIL # (test code = EO#) 0.82 K/mm3 0.0-0.5 H BASOPHIL # (test code = BA#) 0.04 K/mm3 0.0-0.2 N NUCLEATED RBC # (test code = NRBC#) 0.00 K/mm3 0.0-0.1 N PATIENT NOT IN [id number] 11:15:00* Test Item Value Reference Range Interpretation Comments GLUBED (test code = GLUBED) 266 mg/dL 74-106 H Performed by certified basin operator at [facility] ([facility]) [id number] 06:59:00* Test Item Value Reference Range Interpretation Comments GLUBED (test code = GLUBED) 149 mg/dL 74-106 H Performed by certified basin operator at [facility]) [id number] 20:03:00* Test Item Value Reference Range Interpretation Comments GLUBED (test code = GLUBED) 116 mg/dL 74-106 H Performed by certified basin operator at [facility]) [id number] 16:40:00* Test Item Value Reference Range Interpretation Comments GLUBED (test code = GLUBED) 120 mg/dL 74-106 H Performed by certified basin operator at [facility]) [id number] 16:10:00* Test Item Value Reference Range Interpretation Comments GLUBED (test code = GLUBED) 59 mg/dL 74-106 L Performed by certified basin operator at [facility]) [id number] 11:16:00* Test Item Value Reference Range Interpretation Comments GLUBED (test code = GLUBED) 208 mg/dL 74-106 H Performed by certified basin operator at [facility]) [id number] 07:48:00* Test Item Value Reference Range Interpretation Comments GLUBED (test code = GLUBED) 208 mg/dL 74-106 H Performed by certified basin operator at [facility]) [id number] 11:12:00* Test Item Value Reference Range Interpretation Comments GLUBED (test code = GLUBED) 287 mg/dL 74-106 H Performed by certified basin operator at [facility]) BASIC METABOLIC [id number] 07:47:00* Test Item Value Reference Range Interpretation Comments SODIUM (test code = NA) 143 mmol/L 136-145 N POTASSIUM (test code = K) 4.1 mmol/L 3.5-5.1 N CHLORIDE (test code = CL) 105.0 mmol/L 98-107 N CARBON DIOXIDE (test code = CO2) 25.0 mmol/L 21-32 N ANION GAP (test code = GAP) 17.1 10-20 N GLUCOSE (test code = GLU) 76 mg/dL 74-106 N BLOOD UREA NITROGEN (test code = BUN) 53 mg/dL 7-18 H GLOMERULAR FILTRATION RATE (test code = GFR) 15 mL/min >=60 Estimated GFR by using Modified MDRD formula.Chronic kidney disease is defined as either kidney damageor GFR <60 mL/min/1.73 m2 for >3 months. CREATININE (test code = CREAT) 4.10 mg/dL 0.7-1.3 H BUN/CREATININE RATIO (test code = BUN/CREA) 12.8 10-20 N CALCIUM (test code = CA) 9.1 mg/dL 8.5-10.1 N [id number] METABOLIC [id number] 07:35:00* Test Item Value Reference Range Interpretation Comments SODIUM (test code = NA) 143 mmol/L 136-145 N POTASSIUM (test code = K) 4.1 mmol/L 3.5-5.1 N CHLORIDE (test code = CL) 105.0 mmol/L 98-107 N CARBON DIOXIDE (test code = CO2) mmol/L 21-32 ANION GAP (test code = GAP) 10-20 GLUCOSE (test code = GLU) mg/dL 74-106 BLOOD UREA NITROGEN (test code = BUN) mg/dL 7-18 GLOMERULAR FILTRATION RATE (test code = GFR) mL/min >=60 CREATININE (test code = CREAT) mg/dL 0.7-1.3 BUN/CREATININE RATIO (test code = BUN/CREA) 10-20 CALCIUM (test code = CA) mg/dL 8.5-10.1 [id number] W/AUTO [id number] 07:24:00* Test Item Value Reference Range Interpretation Comments WHITE BLOOD CELL (test code = WBC) 10.0 K/mm3 4.5-12.5 N RED BLOOD CELL (test code = RBC) 3.20 mill/mm3 4.0-5.8 L HEMOGLOBIN (test code = HGB) 9.4 gram/dL 13.0-17.5 L HEMATOCRIT (test code = HCT) 30.4 % 42.0-52.0 L MEAN CELL VOLUME (test code = MCV) 95.0 fL 80-98 N MEAN CELL HGB (test code = MCH) 29.4 picogram 27.0-33.0 N MEAN CELL HGB CONCETRATION (test code = MCHC) 30.9 gram/dL 33.0-36. 0 L RED CELL DISTRIBUTION WIDTH (test code = RDW) 17.0 % 11.6-16. 2 H RED CELL DISTRIBUTION WIDTH SD (test code = RDW-SD) 57.8 fL 37 .0-51.0 H PLATELET COUNT (test code = PLT) 247 K/mm3 150-450 N MEAN PLATELET VOLUME (test code = MPV) 10.0 fL 6.7-11.0 N NEUTROPHIL % (test code = NT%) 76.6 % 39.0-69.0 H IMMATURE GRANULOCYTE % (test code = IG%) 1.5 % 0.0-5.0 N LYMPHOCYTE % (test code = LY%) 15.6 % 25.0-55.0 L MONOCYTE % (test code = MO%) 5.9 % 0.0-10.0 N EOSINOPHIL % (test code = EO%) 0.0 % 0.0-5.0 N BASOPHIL % (test code = BA%) 0.4 % 0.0-1.0 N NUCLEATED RBC % (test code = NRBC%) 0.0 % 0-0 N NEUTROPHIL # (test code = NT#) 7.65 K/mm3 1.8-7.7 N IMMATURE GRANULOCYTE # (test code = IG#) 0.15 x10 3/uL 0-0.03 H LYMPHOCYTE # (test code = LY#) 1.56 K/mm3 1.0-5.0 N MONOCYTE # (test code = MO#) 0.59 K/mm3 0-0.8 N EOSINOPHIL # (test code = EO#) 0.00 K/mm3 0.0-0.5 N BASOPHIL # (test code = BA#) 0.04 K/mm3 0.0-0.2 N NUCLEATED RBC # (test code = NRBC#) 0.00 K/mm3 0.0-0.1 N MANUAL DIFF REQUIRED (test code = MDIFF) NO [id number] 07:03:00* Test Item Value Reference Range Interpretation Comments GLUBED (test code = GLUBED) 86 mg/dL 74-106 N Performed by certified basin operator at [facility]) [id number] 20:25:00* Test Item Value Reference Range Interpretation Comments GLUBED (test code = GLUBED) 207 mg/dL 74-106 H Performed by certified basin operator at [facility]) [id number] 18:54:00* Test Item Value Reference Range Interpretation Comments GLUBED (test code = GLUBED) 191 mg/dL 74-106 H Performed by certified basin operator at [facility]) [id number] 11:45:00* Test Item Value Reference Range Interpretation Comments GLUBED (test code = GLUBED) 218 mg/dL 74-106 H Performed by certified basin operator at [facility]) [id number] 11:45:00* Test Item Value Reference Range Interpretation Comments GLUBED (test code = GLUBED) 152 mg/dL 74-106 H Performed by certified basin operator at [facility]) [id number] 20:09:00* Test Item Value Reference Range Interpretation Comments GLUBED (test code = GLUBED) 191 mg/dL 74-106 H Performed by certified basin operator at [facility]) [id number] 16:13:00* Test Item Value Reference Range Interpretation Comments GLUBED (test code = GLUBED) 138 mg/dL 74-106 H Performed by certified basin operator at [facility]) [id number] 11:09:00* Test Item Value Reference Range Interpretation Comments GLUBED (test code = GLUBED) 230 mg/dL 74-106 H Performed by certified basin operator at [facility]) [id number] 06:57:00* Test Item Value Reference Range Interpretation Comments GLUBED (test code = GLUBED) 187 mg/dL 74-106 H Performed by certified basin operator at [facility]) BASIC METABOLIC [id number] 03:42:00* Test Item Value Reference Range Interpretation Comments SODIUM (test code = NA) 138 mmol/L 136-145 N POTASSIUM (test code = K) 4.4 mmol/L 3.5-5.1 N CHLORIDE (test code = CL) 103.0 mmol/L 98-107 N CARBON DIOXIDE (test code = CO2) 28.0 mmol/L 21-32 N ANION GAP (test code = GAP) 11.4 10-20 N GLUCOSE (test code = GLU) 229 mg/dL 74-106 H BLOOD UREA NITROGEN (test code = BUN) 22 mg/dL 7-18 H RESULT VERIFIED BY REPEAT ANALYSIS GLOMERULAR FILTRATION RATE (test code = GFR) 22 mL/min >=60 Estimated GFR by using Modified MDRD formula.Chronic kidney disease is defined as either kidney damageor GFR <60 mL/min/1.73 m2 for >3 months. CREATININE (test code = CREAT) 2.90 mg/dL 0.7-1.3 H BUN/CREATININE RATIO (test code = BUN/CREA) 7.6 10-20 L CALCIUM (test code = CA) 8.9 mg/dL 8.5-10.1 N CBC W/AUTO [id number] 03:08:00* Test Item Value Reference Range Interpretation Comments WHITE BLOOD CELL (test code = WBC) 10.0 K/mm3 4.5-12.5 N RED BLOOD CELL (test code = RBC) 3.33 mill/mm3 4.0-5.8 L HEMOGLOBIN (test code = HGB) 9.6 gram/dL 13.0-17.5 L HEMATOCRIT (test code = HCT) 30.8 % 42.0-52.0 L MEAN CELL VOLUME (test code = MCV) 92.5 fL 80-98 N MEAN CELL HGB (test code = MCH) 28.8 picogram 27.0-33.0 N MEAN CELL HGB CONCETRATION (test code = MCHC) 31.2 gram/dL 33.0-36. 0 L RED CELL DISTRIBUTION WIDTH (test code = RDW) 16.5 % 11.6-16. 2 H RED CELL DISTRIBUTION WIDTH SD (test code = RDW-SD) 54.6 fL 37 .0-51.0 H PLATELET COUNT (test code = PLT) 291 K/mm3 150-450 N MEAN PLATELET VOLUME (test code = MPV) 10.2 fL 6.7-11.0 N NEUTROPHIL % (test code = NT%) 79.0 % 39.0-69.0 H IMMATURE GRANULOCYTE % (test code = IG%) 1.4 % 0.0-5.0 N LYMPHOCYTE % (test code = LY%) 12.6 % 25.0-55.0 L MONOCYTE % (test code = MO%) 6.6 % 0.0-10.0 N EOSINOPHIL % (test code = EO%) 0.0 % 0.0-5.0 N BASOPHIL % (test code = BA%) 0.4 % 0.0-1.0 N NUCLEATED RBC % (test code = NRBC%) 0.0 % 0-0 N NEUTROPHIL # (test code = NT#) 7.91 K/mm3 1.8-7.7 H IMMATURE GRANULOCYTE # (test code = IG#) 0.14 x10 3/uL 0-0.03 H LYMPHOCYTE # (test code = LY#) 1.26 K/mm3 1.0-5.0 N MONOCYTE # (test code = MO#) 0.66 K/mm3 0-0.8 N EOSINOPHIL # (test code = EO#) 0.00 K/mm3 0.0-0.5 N BASOPHIL # (test code = BA#) 0.04 K/mm3 0.0-0.2 N NUCLEATED RBC # (test code = NRBC#) 0.00 K/mm3 0.0-0.1 N [id number] 20:47:00* Test Item Value Reference Range Interpretation Comments GLUBED (test code = GLUBED) 268 mg/dL 74-106 H Performed by certified basin operator at [facility] BASIC METABOLIC [id number] 16:07:00* Test Item Value Reference Range Interpretation Comments SODIUM (test code = NA) 140 mmol/L 136-145 N POTASSIUM (test code = K) 4.5 mmol/L 3.5-5.1 N CHLORIDE (test code = CL) 100.0 mmol/L 98-107 N CARBON DIOXIDE (test code = CO2) 30.0 mmol/L 21-32 N ANION GAP (test code = GAP) 14.5 10-20 N GLUCOSE (test code = GLU) 148 mg/dL 74-106 H BLOOD UREA NITROGEN (test code = BUN) 41 mg/dL 7-18 H GLOMERULAR FILTRATION RATE (test code = GFR) 14 mL/min >=60 Estimated GFR by using Modified MDRD formula.Chronic kidney disease is defined as either kidney damageor GFR <60 mL/min/1.73 m2 for >3 months. CREATININE (test code = CREAT) 4.30 mg/dL 0.7-1.3 H BUN/CREATININE RATIO (test code = BUN/CREA) 9.6 10-20 L CALCIUM (test code = CA) 9.3 mg/dL 8.5-10.1 N BASIC METABOLIC [id number] 15:59:00* Test Item Value Reference Range Interpretation Comments SODIUM (test code = NA) 140 mmol/L 136-145 N POTASSIUM (test code = K) 4.5 mmol/L 3.5-5.1 N CHLORIDE (test code = CL) 100.0 mmol/L 98-107 N CARBON DIOXIDE (test code = CO2) mmol/L 21-32 ANION GAP (test code = GAP) 10-20 GLUCOSE (test code = GLU) mg/dL 74-106 BLOOD UREA NITROGEN (test code = BUN) mg/dL 7-18 GLOMERULAR FILTRATION RATE (test code = GFR) mL/min >=60 CREATININE (test code = CREAT) mg/dL 0.7-1.3 BUN/CREATININE RATIO (test code = BUN/CREA) 10-20 CALCIUM (test code = CA) mg/dL 8.5-10.1 CBC W/AUTO [id number] 15:47:00* Test Item Value Reference Range Interpretation Comments WHITE BLOOD CELL (test code = WBC) 7.8 K/mm3 4.5-12.5 N RED BLOOD CELL (test code = RBC) 3.00 mill/mm3 4.0-5.8 L HEMOGLOBIN (test code = HGB) 8.8 gram/dL 13.0-17.5 L HEMATOCRIT (test code = HCT) 28.0 % 42.0-52.0 L MEAN CELL VOLUME (test code = MCV) 93.3 fL 80-98 N MEAN CELL HGB (test code = MCH) 29.3 picogram 27.0-33.0 N MEAN CELL HGB CONCETRATION (test code = MCHC) 31.4 gram/dL 33.0-36. 0 L RED CELL DISTRIBUTION WIDTH (test code = RDW) 16.6 % 11.6-16. 2 H RED CELL DISTRIBUTION WIDTH SD (test code = RDW-SD) 55.8 fL 37 .0-51.0 H PLATELET COUNT (test code = PLT) 260 K/mm3 150-450 RESULT VERIFIED BY REPEAT ANALYSIS MEAN PLATELET VOLUME (test code = MPV) 9.7 fL 6.7-11.0 N NEUTROPHIL % (test code = NT%) 73.2 % 39.0-69.0 H IMMATURE GRANULOCYTE % (test code = IG%) 1.8 % 0.0-5.0 N LYMPHOCYTE % (test code = LY%) 17.6 % 25.0-55.0 L MONOCYTE % (test code = MO%) 6.3 % 0.0-10.0 N EOSINOPHIL % (test code = EO%) 0.3 % 0.0-5.0 N BASOPHIL % (test code = BA%) 0.8 % 0.0-1.0 N NUCLEATED RBC % (test code = NRBC%) 0.0 % 0-0 N NEUTROPHIL # (test code = NT#) 5.69 K/mm3 1.8-7.7 N IMMATURE GRANULOCYTE # (test code = IG#) 0.14 x10 3/uL 0-0.03 H LYMPHOCYTE # (test code = LY#) 1.37 K/mm3 1.0-5.0 N MONOCYTE # (test code = MO#) 0.49 K/mm3 0-0.8 N EOSINOPHIL # (test code = EO#) 0.02 K/mm3 0.0-0.5 N BASOPHIL # (test code = BA#) 0.06 K/mm3 0.0-0.2 N NUCLEATED RBC # (test code = NRBC#) 0.00 K/mm3 0.0-0.1 N MANUAL DIFF REQUIRED (test code = MDIFF) NO [id number] 11:40:00* Test Item Value Reference Range Interpretation Comments GLUBED (test code = GLUBED) 165 mg/dL 74-106 H Performed by certified basin operator at [facility] [id number] 07:24:00* Test Item Value Reference Range Interpretation Comments GLUBED (test code = GLUBED) 105 mg/dL 74-106 N Performed by certified basin operator at [facility]) [id number] 20:11:00* Test Item Value Reference Range Interpretation Comments GLUBED (test code = GLUBED) 200 mg/dL 74-106 H Performed by certified basin operator at [facility]) [id number] 16:15:00* Test Item Value Reference Range Interpretation Comments GLUBED (test code = GLUBED) 136 mg/dL 74-106 H Performed by certified basin operator at [facility]) - XR SWLW FUNC W/C [id number] 14:56:00 FAX: Rojelio Padron [place]: [address] St: ADM Name: TORRES CAN [facility] : [birth year] 57 Age/S: 58/M [address] [facility] Unit #: [id number] Loc: V.[address] [place] [address] Phys: Rojelio Saldana [facility] Acct: [id number] Dis Date: Status: ADM IN PHONE #: [phone] Exam Date: 03/21/2019 1145 FAX #: [phone] Reason: DYSPHAGIA EXAMS: CPT CODE: [id number] XR SWLW FUNC W/C V 22546 CLINICAL HISTORY: DYSPHAGIA TECHNIQUE: Fluoroscopic swallow function evaluation in conjunction with speech therapy. Fluoroscopy time 132 seconds;Dose: 10.5 mGy. IMPRESSION: Handling of varying consistencies of barium were evaluated. The patient demonstrated silent aspiration when consuming t hin and nectar consistency barium. There is also penetration but no aspi ration when the patient attempted to consume honey consistency barium. P lease see separate speech pathology report for complete discussion. at 6625 Reported and signed by: Ken Marie MD CC: Rojelio Saldana DO Technologist: RT BRIA(R) Trngulshan Date/Time/By: 03/21/20 19 (0098) : By: [email or web address] Orig Print D/T: S: 03/21/2019 (0788) PAGE 1 Signed Report [id number] 11:15:00* Test Item Value Reference Range Interpretation Comments GLUBED (test code = GLUBED) 241 mg/dL 74-106 H Performed by certified basin operator at [facility] [id number] 07:35:00* Test Item Value Reference Range Interpretation Comments GLUBED (test code = GLUBED) 187 mg/dL 74-106 H Performed by certified basin operator at [facility] BASIC METABOLIC [id number] 07:18:00* Test Item Value Reference Range Interpretation Comments SODIUM (test code = NA) 138 mmol/L 136-145 N POTASSIUM (test code = K) 4.1 mmol/L 3.5-5.1 N CHLORIDE (test code = CL) 101.0 mmol/L 98-107 N CARBON DIOXIDE (test code = CO2) 30.0 mmol/L 21-32 N ANION GAP (test code = GAP) 11.1 10-20 N GLUCOSE (test code = GLU) 226 mg/dL 74-106 H BLOOD UREA NITROGEN (test code = BUN) 21 mg/dL 7-18 H RESULT VERIFIED BY REPEAT ANALYSIS GLOMERULAR FILTRATION RATE (test code = GFR) 22 mL/min >=60 Estimated GFR by using Modified MDRD formula.Chronic kidney disease is defined as either kidney damageor GFR <60 mL/min/1.73 m2 for >3 months. CREATININE (test code = CREAT) 2.90 mg/dL 0.7-1.3 H BUN/CREATININE RATIO (test code = BUN/CREA) 7.2 10-20 L CALCIUM (test code = CA) 8.8 mg/dL 8.5-10.1 N BASIC METABOLIC [id number] 07:08:00* Test Item Value Reference Range Interpretation Comments SODIUM (test code = NA) 138 mmol/L 136-145 N POTASSIUM (test code = K) 4.1 mmol/L 3.5-5.1 N CHLORIDE (test code = CL) 101.0 mmol/L 98-107 N CARBON DIOXIDE (test code = CO2) mmol/L 21-32 ANION GAP (test code = GAP) 10-20 GLUCOSE (test code = GLU) mg/dL 74-106 BLOOD UREA NITROGEN (test code = BUN) mg/dL 7-18 GLOMERULAR FILTRATION RATE (test code = GFR) mL/min >=60 CREATININE (test code = CREAT) mg/dL 0.7-1.3 BUN/CREATININE RATIO (test code = BUN/CREA) 10-20 CALCIUM (test code = CA) mg/dL 8.5-10.1 CBC W/AUTO [id number] 06:41:00* Test Item Value Reference Range Interpretation Comments WHITE BLOOD CELL (test code = WBC) 8.9 K/mm3 4.5-12.5 N RED BLOOD CELL (test code = RBC) 3.24 mill/mm3 4.0-5.8 L HEMOGLOBIN (test code = HGB) 9.1 gram/dL 13.0-17.5 L HEMATOCRIT (test code = HCT) 30.1 % 42.0-52.0 L MEAN CELL VOLUME (test code = MCV) 92.9 fL 80-98 N MEAN CELL HGB (test code = MCH) 28.1 picogram 27.0-33.0 N MEAN CELL HGB CONCETRATION (test code = MCHC) 30.2 gram/dL 33.0-36. 0 L RED CELL DISTRIBUTION WIDTH (test code = RDW) 16.1 % 11.6-16. 2 N RED CELL DISTRIBUTION WIDTH SD (test code = RDW-SD) 54.4 fL 37 .0-51.0 H PLATELET COUNT (test code = PLT) 311 K/mm3 150-450 N MEAN PLATELET VOLUME (test code = MPV) 9.8 fL 6.7-11.0 N NEUTROPHIL % (test code = NT%) 64.8 % 39.0-69.0 N IMMATURE GRANULOCYTE % (test code = IG%) 1.9 % 0.0-5.0 N LYMPHOCYTE % (test code = LY%) 20.9 % 25.0-55.0 L MONOCYTE % (test code = MO%) 8.1 % 0.0-10.0 N EOSINOPHIL % (test code = EO%) 3.6 % 0.0-5.0 N BASOPHIL % (test code = BA%) 0.7 % 0.0-1.0 N NUCLEATED RBC % (test code = NRBC%) 0.0 % 0-0 N NEUTROPHIL # (test code = NT#) 5.74 K/mm3 1.8-7.7 N IMMATURE GRANULOCYTE # (test code = IG#) 0.17 x10 3/uL 0-0.03 H LYMPHOCYTE # (test code = LY#) 1.85 K/mm3 1.0-5.0 N MONOCYTE # (test code = MO#) 0.72 K/mm3 0-0.8 N EOSINOPHIL # (test code = EO#) 0.32 K/mm3 0.0-0.5 N BASOPHIL # (test code = BA#) 0.06 K/mm3 0.0-0.2 N NUCLEATED RBC # (test code = NRBC#) 0.00 K/mm3 0.0-0.1 N [id number] 20:54:00* Test Item Value Reference Range Interpretation Comments GLUBED (test code = GLUBED) 166 mg/dL 74-106 H Performed by certified basin operator at [facility] BASIC METABOLIC [id number] 12:57:00* Test Item Value Reference Range Interpretation Comments SODIUM (test code = NA) 137 mmol/L 136-145 N POTASSIUM (test code = K) 4.1 mmol/L 3.5-5.1 N CHLORIDE (test code = CL) 102.0 mmol/L 98-107 N CARBON DIOXIDE (test code = CO2) 24.0 mmol/L 21-32 N ANION GAP (test code = GAP) 15.1 10-20 N GLUCOSE (test code = GLU) 197 mg/dL 74-106 H BLOOD UREA NITROGEN (test code = BUN) 36 mg/dL 7-18 H GLOMERULAR FILTRATION RATE (test code = GFR) 13 mL/min >=60 Estimated GFR by using Modified MDRD formula.Chronic kidney disease is defined as either kidney damageor GFR <60 mL/min/1.73 m2 for >3 months. CREATININE (test code = CREAT) 4.50 mg/dL 0.7-1.3 H BUN/CREATININE RATIO (test code = BUN/CREA) 8.0 10-20 L CALCIUM (test code = CA) 8.8 mg/dL 8.5-10.1 N BASIC METABOLIC [id number] 12:51:00* Test Item Value Reference Range Interpretation Comments SODIUM (test code = NA) 137 mmol/L 136-145 N POTASSIUM (test code = K) 4.1 mmol/L 3.5-5.1 N CHLORIDE (test code = CL) 102.0 mmol/L 98-107 N CARBON DIOXIDE (test code = CO2) mmol/L 21-32 ANION GAP (test code = GAP) 10-20 GLUCOSE (test code = GLU) mg/dL 74-106 BLOOD UREA NITROGEN (test code = BUN) mg/dL 7-18 GLOMERULAR FILTRATION RATE (test code = GFR) mL/min >=60 CREATININE (test code = CREAT) mg/dL 0.7-1.3 BUN/CREATININE RATIO (test code = BUN/CREA) 10-20 CALCIUM (test code = CA) mg/dL 8.5-10.1 CBC W/AUTO [id number] 12:34:00* Test Item Value Reference Range Interpretation Comments WHITE BLOOD CELL (test code = WBC) 8.7 K/mm3 4.5-12.5 N RED BLOOD CELL (test code = RBC) 3.17 mill/mm3 4.0-5.8 L HEMOGLOBIN (test code = HGB) 9.1 gram/dL 13.0-17.5 L HEMATOCRIT (test code = HCT) 29.4 % 42.0-52.0 L MEAN CELL VOLUME (test code = MCV) 92.7 fL 80-98 N MEAN CELL HGB (test code = MCH) 28.7 picogram 27.0-33.0 N MEAN CELL HGB CONCETRATION (test code = MCHC) 31.0 gram/dL 33.0-36. 0 L RED CELL DISTRIBUTION WIDTH (test code = RDW) 16.1 % 11.6-16. 2 N RED CELL DISTRIBUTION WIDTH SD (test code = RDW-SD) 54.4 fL 37 .0-51.0 H PLATELET COUNT (test code = PLT) 299 K/mm3 150-450 N MEAN PLATELET VOLUME (test code = MPV) 9.7 fL 6.7-11.0 N NEUTROPHIL % (test code = NT%) 70.7 % 39.0-69.0 H IMMATURE GRANULOCYTE % (test code = IG%) 2.1 % 0.0-5.0 N LYMPHOCYTE % (test code = LY%) 18.4 % 25.0-55.0 L MONOCYTE % (test code = MO%) 7.8 % 0.0-10.0 N EOSINOPHIL % (test code = EO%) 0.2 % 0.0-5.0 N BASOPHIL % (test code = BA%) 0.8 % 0.0-1.0 N NUCLEATED RBC % (test code = NRBC%) 0.0 % 0-0 N NEUTROPHIL # (test code = NT#) 6.16 K/mm3 1.8-7.7 N IMMATURE GRANULOCYTE # (test code = IG#) 0.18 x10 3/uL 0-0.03 H LYMPHOCYTE # (test code = LY#) 1.60 K/mm3 1.0-5.0 N MONOCYTE # (test code = MO#) 0.68 K/mm3 0-0.8 N EOSINOPHIL # (test code = EO#) 0.02 K/mm3 0.0-0.5 N BASOPHIL # (test code = BA#) 0.07 K/mm3 0.0-0.2 N NUCLEATED RBC # (test code = NRBC#) 0.00 K/mm3 0.0-0.1 N [id number] 11:18:00* Test Item Value Reference Range Interpretation Comments GLUBED (test code = GLUBED) 198 mg/dL 74-106 H Performed by certified basin operator at [facility] ([facility]) - XR HAND 2 V [id number] 09:17:00 FAX: Rojelio Padron [place]: [address]: ADM Name: TORRES CAN [facility] : [birth year] 57 Age/S: 58/M [address] [facility] Unit #: [id number] Loc: V.[address] [place] [address] Phys: Rojelio Saldana [facility] Acct: [id number] Dis Date: Status: ADM IN PHONE #: [phone] Exam Date: 03/20/2019 0907 FAX #: [phone] Reason: soreness EXAMS: CPT CODE: [id number] XR HAND 2 [place] [id number] REASON FOR EXAM: soreness EXAM ORDER DATE: 03/20/2019 12:00 AM Ordering [place]: [place] Pek Contreras Les, DO PROCEDURE: - XR HAND 2 V [...] MD CC: Rojelio Saldana DO Technologist: Danielle Buenrostro RT(R) Trnscrd Date/Time/By: 03/20/2019 (916) : By: [email or web address] Orig Print D/T: S: 03/20/2019 (9783) PAGE 1 Signed Report [id number] 07:36:00* Test Item Value Reference Range Interpretation Comments GLUBED (test code = GLUBED) 141 mg/dL 74-106 H Performed by certified basin operator at [facility] ([facility]) [id number] 20:01:00* Test Item Value Reference Range Interpretation Comments GLUBED (test code = GLUBED) 213 mg/dL 74-106 H Performed by certified basin operator at [facility]) [id number] 15:59:00* Test Item Value Reference Range Interpretation Comments GLUBED (test code = GLUBED) 125 mg/dL 74-106 H Performed by certified basin operator at [facility]) [id number] 11:08:00* Test Item Value Reference Range Interpretation Comments GLUBED (test code = GLUBED) 201 mg/dL 74-106 H Performed by certified basin operator at [facility]) [id number] 07:32:00* Test Item Value Reference Range Interpretation Comments GLUBED (test code = GLUBED) 165 mg/dL 74-106 H Performed by certified basin operator at [facility]) [id number] 21:11:00* Test Item Value Reference Range Interpretation Comments GLUBED (test code = GLUBED) 161 mg/dL 74-106 H Performed by certified basin operator at [facility]) RENAL FUNCTION [id number] 18:01:00* Test Item Value Reference Range Interpretation Comments SODIUM (test code = NA) 138 mmol/L 136-145 N POTASSIUM (test code = K) 3.9 mmol/L 3.5-5.1 N CHLORIDE (test code = CL) 100.0 mmol/L 98-107 N CARBON DIOXIDE (test code = CO2) 30.0 mmol/L 21-32 N ANION GAP (test code = GAP) 11.9 10-20 N GLUCOSE (test code = GLU) 211 mg/dL 74-106 H BLOOD UREA NITROGEN (test code = BUN) 40 mg/dL 7-18 H CREATININE (test code = CREAT) 4.70 mg/dL 0.7-1.3 H ALBUMIN (test code = ALB) 2.2 g/dL 3.4-5.0 L CALCIUM (test code = CA) 9.0 mg/dL 8.5-10.1 N PHOSPHORUS (test code = PHOS) 4.1 mg/dL 2.5-4.9 N RENAL FUNCTION [id number] 17:57:00* Test Item Value Reference Range Interpretation Comments SODIUM (test code = NA) 138 mmol/L 136-145 N POTASSIUM (test code = K) 3.9 mmol/L 3.5-5.1 N CHLORIDE (test code = CL) 100.0 mmol/L 98-107 N CARBON DIOXIDE (test code = CO2) mmol/L 21-32 ANION GAP (test code = GAP) 10-20 GLUCOSE (test code = GLU) mg/dL 74-106 BLOOD UREA NITROGEN (test code = BUN) mg/dL 7-18 CREATININE (test code = CREAT) mg/dL 0.7-1.3 ALBUMIN (test code = ALB) g/dL 3.4-5.0 CALCIUM (test code = CA) 9.0 mg/dL 8.5-10.1 N PHOSPHORUS (test code = PHOS) mg/dL 2.5-4.9 CBC W/O [id number] 16:55:00* Test Item Value Reference Range Interpretation Comments WHITE BLOOD CELL (test code = WBC) 7.5 K/mm3 4.5-12.5 N RED BLOOD CELL (test code = RBC) 2.74 mill/mm3 4.0-5.8 L HEMOGLOBIN (test code = HGB) 8.0 gram/dL 13.0-17.5 L HEMATOCRIT (test code = HCT) 24.6 % 42.0-52.0 L MEAN CELL VOLUME (test code = MCV) 89.8 fL 80-98 N MEAN CELL HGB (test code = MCH) 29.2 picogram 27.0-33.0 N MEAN CELL HGB CONCETRATION (test code = MCHC) 32.5 gram/dL 33.0-36. 0 L RED CELL DISTRIBUTION WIDTH (test code = RDW) 15.7 % 11.6-16. 2 N PLATELET COUNT (test code = PLT) 307 K/mm3 150-450 N MEAN PLATELET VOLUME (test code = MPV) 10.2 fL 6.7-11.0 N [id number] 11:17:00* Test Item Value Reference Range Interpretation Comments GLUBED (test code = GLUBED) 216 mg/dL 74-106 H Performed by certified basin operator at [facility] [id number] 11:06:00* Test Item Value Reference Range Interpretation Comments GLUBED (test code = GLUBED) 172 mg/dL 74-106 H Performed by certified basin operator at [facility]) [id number] 21:30:00* Test Item Value Reference Range Interpretation Comments GLUBED (test code = GLUBED) 246 mg/dL 74-106 H Performed by certified basin operator at [facility]) [id number] 16:06:00* Test Item Value Reference Range Interpretation Comments GLUBED (test code = GLUBED) 155 mg/dL 74-106 H Performed by certified basin operator at [facility]) [id number] 11:19:00* Test Item Value Reference Range Interpretation Comments GLUBED (test code = GLUBED) 164 mg/dL 74-106 H Performed by certified basin operator at [facility]) [id number] 07:25:00* Test Item Value Reference Range Interpretation Comments GLUBED (test code = GLUBED) 125 mg/dL 74-106 H Performed by certified basin operator at [facility]) [id number] 20:09:00* Test Item Value Reference Range Interpretation Comments GLUBED (test code = GLUBED) 173 mg/dL 74-106 H Performed by certified basin operator at [facility]) [id number] 16:11:00* Test Item Value Reference Range Interpretation Comments GLUBED (test code = GLUBED) 165 mg/dL 74-106 H Performed by certified basin operator at [facility]) [id number] 11:08:00* Test Item Value Reference Range Interpretation Comments GLUBED (test code = GLUBED) 127 mg/dL 74-106 H Performed by certified basin operator at [facility]) [id number] 07:13:00* Test Item Value Reference Range Interpretation Comments GLUBED (test code = GLUBED) 74 mg/dL 74-106 N Performed by certified basin operator at [facility]) [id number] 19:58:00* Test Item Value Reference Range Interpretation Comments GLUBED (test code = GLUBED) 218 mg/dL 74-106 H Performed by certified basin operator at [facility]) [id number] 18:17:00* Test Item Value Reference Range Interpretation Comments GLUBED (test code = GLUBED) 199 mg/dL 74-106 H Performed by certified basin operator at [facility]) CBC W/AUTO [id number] 13:17:00* Test Item Value Reference Range Interpretation Comments WHITE BLOOD CELL (test code = WBC) 12.2 K/mm3 4.5-12.5 N RED BLOOD CELL (test code = RBC) 3.11 mill/mm3 4.0-5.8 L HEMOGLOBIN (test code = HGB) 8.7 gram/dL 13.0-17.5 L HEMATOCRIT (test code = HCT) 28.8 % 42.0-52.0 L MEAN CELL VOLUME (test code = MCV) 92.6 fL 80-98 MEAN CELL HGB (test code = MCH) 28.0 picogram 27.0-33.0 N MEAN CELL HGB CONCETRATION (test code = MCHC) 30.2 gram/dL 33.0-36. 0 L RED CELL DISTRIBUTION WIDTH (test code = RDW) 15.4 % 11.6-16. 2 N RED CELL DISTRIBUTION WIDTH SD (test code = RDW-SD) 50.4 fL 37 .0-51.0 N PLATELET COUNT (test code = PLT) 313 K/mm3 150-450 N MEAN PLATELET VOLUME (test code = MPV) 10.3 fL 6.7-11.0 N NEUTROPHIL % (test code = NT%) 78.1 % 39.0-69.0 H IMMATURE GRANULOCYTE % (test code = IG%) 1.1 % 0.0-5.0 N LYMPHOCYTE % (test code = LY%) 10.5 % 25.0-55.0 L MONOCYTE % (test code = MO%) 8.3 % 0.0-10.0 N EOSINOPHIL % (test code = EO%) 1.7 % 0.0-5.0 N BASOPHIL % (test code = BA%) 0.3 % 0.0-1.0 N NUCLEATED RBC % (test code = NRBC%) 0.0 % 0-0 N NEUTROPHIL # (test code = NT#) 9.53 K/mm3 1.8-7.7 H IMMATURE GRANULOCYTE # (test code = IG#) 0.13 x10 3/uL 0-0.03 H LYMPHOCYTE # (test code = LY#) 1.28 K/mm3 1.0-5.0 N MONOCYTE # (test code = MO#) 1.01 K/mm3 0-0.8 H EOSINOPHIL # (test code = EO#) 0.21 K/mm3 0.0-0.5 N BASOPHIL # (test code = BA#) 0.04 K/mm3 0.0-0.2 N NUCLEATED RBC # (test code = NRBC#) 0.00 K/mm3 0.0-0.1 N MANUAL DIFF REQUIRED (test code = MDIFF) NO PATIENT NOT IN [id number] 12:13:00* Test Item Value Reference Range Interpretation Comments GLUBED (test code = GLUBED) 139 mg/dL 74-106 H Performed by certified basin operator at [facility] [id number] 11:58:00* Test Item Value Reference Range Interpretation Comments GLUBED (test code = GLUBED) 165 mg/dL 74-106 H Performed by certified basin operator at [facility]) BASIC METABOLIC [id number] 10:51:00* Test Item Value Reference Range Interpretation Comments SODIUM (test code = NA) 134 mmol/L 136-145 L POTASSIUM (test code = K) 4.9 mmol/L 3.5-5.1 N CHLORIDE (test code = CL) 101.0 mmol/L 98-107 N CARBON DIOXIDE (test code = CO2) 22.0 mmol/L 21-32 N ANION GAP (test code = GAP) 15.9 10-20 N GLUCOSE (test code = GLU) 135 mg/dL 74-106 H BLOOD UREA NITROGEN (test code = BUN) 35 mg/dL 7-18 H GLOMERULAR FILTRATION RATE (test code = GFR) 11 mL/min >=60 Estimated GFR by using Modified MDRD formula.Chronic kidney disease is defined as either kidney damageor GFR <60 mL/min/1.73 m2 for >3 months. CREATININE (test code = CREAT) 5.20 mg/dL 0.7-1.3 H BUN/CREATININE RATIO (test code = BUN/CREA) 6.7 10-20 L CALCIUM (test code = CA) 8.9 mg/dL 8.5-10.1 N PATIENT NOT IN [id number] 07:06:00* Test Item Value Reference Range Interpretation Comments GLUBED (test code = GLUBED) 117 mg/dL 74-106 H Performed by certified basin operator at [facility]) [id number] 20:34:00* Test Item Value Reference Range Interpretation Comments GLUBED (test code = GLUBED) 141 mg/dL 74-106 H Performed by certified basin operator at [facility]) [id number] 16:04:00* Test Item Value Reference Range Interpretation Comments GLUBED (test code = GLUBED) 156 mg/dL 74-106 H Performed by certified basin operator at [facility])Notified Nurse~ [id number] 11:08:00* Test Item Value Reference Range Interpretation Comments GLUBED (test code = GLUBED) 193 mg/dL 74-106 H Performed by certified basin operator at [facility]) [id number] 07:52:00* Test Item Value Reference Range Interpretation Comments GLUBED (test code = GLUBED) 167 mg/dL 74-106 H Performed by certified basin operator at [facility])Notified Nurse~ COMPREHENSIVE METABOLIC [id number] 07:00:00* Test Item Value Reference Range Interpretation Comments SODIUM (test code = NA) 140 mmol/L 136-145 N POTASSIUM (test code = K) 3.7 mmol/L 3.5-5.1 N CHLORIDE (test code = CL) 102.0 mmol/L 98-107 N CARBON DIOXIDE (test code = CO2) 30.0 mmol/L 21-32 N ANION GAP (test code = GAP) 11.7 10-20 N GLUCOSE (test code = GLU) 177 mg/dL 74-106 H BLOOD UREA NITROGEN (test code = BUN) 24 mg/dL 7-18 H GLOMERULAR FILTRATION RATE (test code = GFR) 16 mL/min >=60 Estimated GFR by using Modified MDRD formula.Chronic kidney disease is defined as either kidney damageor GFR <60 mL/min/1.73 m2 for >3 months. CREATININE (test code = CREAT) 3.90 mg/dL 0.7-1.3 H BUN/CREATININE RATIO (test code = BUN/CREA) 6.2 10-20 L TOTAL PROTEIN (test code = PROT) 7.3 gram/dL 6.4-8.2 N ALBUMIN (test code = ALB) 2.1 g/dL 3.4-5.0 L GLOBULIN (test code = GLOB) 5.2 gram/dL 2.7-4.2 H ALBUMIN/GLOBULIN RATIO (test code = A/G) 0.4 0.75-1.50 L CALCIUM (test code = CA) 9.2 mg/dL 8.5-10.1 N BILIRUBIN TOTAL (test code = BILT) 0.40 mg/dL 0.0-1.0 N SGOT/AST (test code = AST) 26 IUnit/L 15-37 N SGPT/ALT (test code = ALT) 40 IUnit/L 12-78 N ALKALINE PHOSPHATASE TOTAL (test code = ALKP) 93 IUnit/L 45-117 N Note change in reference range due to change in reagent. COMPREHENSIVE METABOLIC [id number] 06:49:00* Test Item Value Reference Range Interpretation Comments SODIUM (test code = NA) 140 mmol/L 136-145 N POTASSIUM (test code = K) 3.7 mmol/L 3.5-5.1 N CHLORIDE (test code = CL) 102.0 mmol/L 98-107 N CARBON DIOXIDE (test code = CO2) mmol/L 21-32 ANION GAP (test code = GAP) 10-20 GLUCOSE (test code = GLU) mg/dL 74-106 BLOOD UREA NITROGEN (test code = BUN) mg/dL 7-18 GLOMERULAR FILTRATION RATE (test code = GFR) mL/min >=60 CREATININE (test code = CREAT) mg/dL 0.7-1.3 BUN/CREATININE RATIO (test code = BUN/CREA) 10-20 TOTAL PROTEIN (test code = PROT) gram/dL 6.4-8.2 ALBUMIN (test code = ALB) g/dL 3.4-5.0 GLOBULIN (test code = GLOB) gram/dL 2.7-4.2 ALBUMIN/GLOBULIN RATIO (test code = A/G) 0.75-1.50 CALCIUM (test code = CA) mg/dL 8.5-10.1 BILIRUBIN TOTAL (test code = BILT) mg/dL 0.0-1.0 SGOT/AST (test code = AST) IUnit/L 15-37 SGPT/ALT (test code = ALT) IUnit/L 12-78 ALKALINE PHOSPHATASE TOTAL (test code = ALKP) IUnit/L 45-117 CBC W/AUTO [id number] 06:19:00* Test Item Value Reference Range Interpretation Comments WHITE BLOOD CELL (test code = WBC) 10.7 K/mm3 4.5-12.5 N RED BLOOD CELL (test code = RBC) 3.12 mill/mm3 4.0-5.8 L HEMOGLOBIN (test code = HGB) 8.8 gram/dL 13.0-17.5 L HEMATOCRIT (test code = HCT) 27.5 % 42.0-52.0 L MEAN CELL VOLUME (test code = MCV) 88.1 fL 80-98 N MEAN CELL HGB (test code = MCH) 28.2 picogram 27.0-33.0 N MEAN CELL HGB CONCETRATION (test code = MCHC) 32.0 gram/dL 33.0-36. 0 L RED CELL DISTRIBUTION WIDTH (test code = RDW) 14.8 % 11.6-16. 2 N RED CELL DISTRIBUTION WIDTH SD (test code = RDW-SD) 46.5 fL 37 .0-51.0 N PLATELET COUNT (test code = PLT) 316 K/mm3 150-450 N MEAN PLATELET VOLUME (test code = MPV) 10.7 fL 6.7-11.0 N NEUTROPHIL % (test code = NT%) 80.0 % 39.0-69.0 H IMMATURE GRANULOCYTE % (test code = IG%) 0.9 % 0.0-5.0 N LYMPHOCYTE % (test code = LY%) 11.2 % 25.0-55.0 L MONOCYTE % (test code = MO%) 7.3 % 0.0-10.0 N EOSINOPHIL % (test code = EO%) 0.1 % 0.0-5.0 N BASOPHIL % (test code = BA%) 0.5 % 0.0-1.0 N NUCLEATED RBC % (test code = NRBC%) 0.0 % 0-0 N NEUTROPHIL # (test code = NT#) 8.57 K/mm3 1.8-7.7 H IMMATURE GRANULOCYTE # (test code = IG#) 0.10 x10 3/uL 0-0.03 H LYMPHOCYTE # (test code = LY#) 1.20 K/mm3 1.0-5.0 N MONOCYTE # (test code = MO#) 0.78 K/mm3 0-0.8 N EOSINOPHIL # (test code = EO#) 0.01 K/mm3 0.0-0.5 N BASOPHIL # (test code = BA#) 0.05 K/mm3 0.0-0.2 N NUCLEATED RBC # (test code = NRBC#) 0.00 K/mm3 0.0-0.1 N MANUAL DIFF REQUIRED (test code = MDIFF) NO [id number] 20:40:00* Test Item Value Reference Range Interpretation Comments GLUBED (test code = GLUBED) 320 mg/dL 74-106 H Performed by certified basin operator at [facility] INFECTION CONTROL [id number] 20:07:00* Test Item Value Reference Range Interpretation Comments HEPATITIS C RNA BY PCR (QUAL) (test code = HCVRNAPCR) Negative Negative Negative: HCV RNA Not DetectedPerformed At: [facility] [address] [id number] Sanjai MD Ph:[phone] AG HEPAT B SURF (test code = HBSAG) Nonreactive Index Nonreactive HEPATITIS B CORE ANTIBODY,TOT (test code = HBCAB) Negative Nega tive Performed At: [facility] [address] [id number] Kyle L MD Ph:[phone] AB HEPATITIS C (test code = HCVAB) <0.1 0.0-0.9 INFCE Result Units: s/co ratio Negative: < 0.8 Indeterminate: 0.8 - 0.9 Positive: > 0.9 The CDC recommends that a positive HCV antibody result be followed up with a HCV Nucleic Acid Amplification test (988148). HIV 1 2 COMBO AG/AB SCREEN (test code = [id number]) AB/AG NO N REACTIVE NONREACTIVE NONREACTIVE HIV P24 ANTI GEN NONREACTIVE NONREACTIVE HIV 1&2 ANTIBODY NONREACTIVE THE HIV-1 P24 TEST HELPS DISTINGUISH ACUTE HIV-1INFECTIONFROM ESTABLISHED HIV-1 INFECTION WHEN THE SPECIMEN ISPOSITIVE FOR HIV-1 P24 ANTIGEN.HIV-1 P24 ANTIGEN IS HIGHEST IN THE FIRST FEW WEEKS AFTERINFECTION - XR CHEST 1 [id number] 19:14:00 FAX: Rojelio Padron [place]: [address] St: ADM Name: Italo TORRES MCKEON [facility] : [birth year] 57 Age/S: 58/M [address] [facility] Unit #: [id number] Loc: V.[address] [place] [id number] Phys: Rojelio Saldana [facility] Acct: [id number] Dis Date: Status: ADM IN PHONE #: [phone] Exam Date: 03/13/2019 1850 FAX #: [phone] Reason: RESP FAILURE EXAMS: CPT CODE: [id number] XR CHEST 1 V 92047 REASON FOR EXAM: RESP FAILURE Exam Order Date: 03/13/2019 12:00 AM Ordering Lanette: Rojelio Saldana DO PROCEDURE: - XR CHEST [...] Rojelio Saldana DO Technologist: TRICIA CORREA; Huy Jackson RT(R Trnscrd Date/Time/By: 03/13/2019 (1913) : By: [email or web address] Orig Print D/T: S: 03/13/2019 (1916) PAGE 1 Signed Report [id number] 15:43:00* Test Item Value Reference Range Interpretation Comments GLUBED (test code = GLUBED) 277 mg/dL 74-106 H Performed by certified basin operator at [facility] [id number] 12:33:00* Test Item Value Reference Range Interpretation Comments GLUBED (test code = GLUBED) 279 mg/dL 74-106 H Performed by certified basin operator at [facility]) BASIC METABOLIC [id number] 05:42:00* Test Item Value Reference Range Interpretation Comments SODIUM (test code = NA) 134 mmol/L 136-145 L POTASSIUM (test code = K) 3.9 mmol/L 3.5-5.1 N CHLORIDE (test code = CL) 99.0 mmol/L 98-107 N CARBON DIOXIDE (test code = CO2) 25.0 mmol/L 21-32 N ANION GAP (test code = GAP) 13.9 10-20 N GLUCOSE (test code = GLU) 242 mg/dL 74-106 H BLOOD UREA NITROGEN (test code = BUN) 40 mg/dL 7-18 H GLOMERULAR FILTRATION RATE (test code = GFR) 10 mL/min >=60 Estimated GFR by using Modified MDRD formula.Chronic kidney disease is defined as either kidney damageor GFR <60 mL/min/1.73 m2 for >3 months. CREATININE (test code = CREAT) 5.60 mg/dL 0.7-1.3 H BUN/CREATININE RATIO (test code = BUN/CREA) 7.2 10-20 L CALCIUM (test code = CA) 8.8 mg/dL 8.5-10.1 N CBC W/AUTO [id number] 05:36:00* Test Item Value Reference Range Interpretation Comments WHITE BLOOD CELL (test code = WBC) 9.8 K/mm3 4.5-12.5 N RED BLOOD CELL (test code = RBC) 2.96 mill/mm3 4.0-5.8 L HEMOGLOBIN (test code = HGB) 8.3 gram/dL 13.0-17.5 L HEMATOCRIT (test code = HCT) 26.5 % 42.0-52.0 L MEAN CELL VOLUME (test code = MCV) 89.5 fL 80-98 N MEAN CELL HGB (test code = MCH) 28.0 picogram 27.0-33.0 N MEAN CELL HGB CONCETRATION (test code = MCHC) 31.3 gram/dL 33.0-36. 0 L RED CELL DISTRIBUTION WIDTH (test code = RDW) 14.6 % 11.6-16. 2 N RED CELL DISTRIBUTION WIDTH SD (test code = RDW-SD) 46.5 fL 37 .0-51.0 N PLATELET COUNT (test code = PLT) 290 K/mm3 150-450 N MEAN PLATELET VOLUME (test code = MPV) 11.0 fL 6.7-11.0 N NEUTROPHIL % (test code = NT%) 82.3 % 39.0-69.0 H IMMATURE GRANULOCYTE % (test code = IG%) 1.2 % 0.0-5.0 N LYMPHOCYTE % (test code = LY%) 9.1 % 25.0-55.0 L MONOCYTE % (test code = MO%) 7.2 % 0.0-10.0 N EOSINOPHIL % (test code = EO%) 0.0 % 0.0-5.0 N BASOPHIL % (test code = BA%) 0.2 % 0.0-1.0 N NUCLEATED RBC % (test code = NRBC%) 0.0 % 0-0 N NEUTROPHIL # (test code = NT#) 8.09 K/mm3 1.8-7.7 H IMMATURE GRANULOCYTE # (test code = IG#) 0.12 x10 3/uL 0-0.03 H LYMPHOCYTE # (test code = LY#) 0.89 K/mm3 1.0-5.0 L MONOCYTE # (test code = MO#) 0.71 K/mm3 0-0.8 N EOSINOPHIL # (test code = EO#) 0.00 K/mm3 0.0-0.5 N BASOPHIL # (test code = BA#) 0.02 K/mm3 0.0-0.2 N NUCLEATED RBC # (test code = NRBC#) 0.00 K/mm3 0.0-0.1 N MANUAL DIFF REQUIRED (test code = MDIFF) NO [id number] 19:50:00* Test Item Value Reference Range Interpretation Comments GLUBED (test code = GLUBED) 194 mg/dL 74-106 H Performed by certified basin operator at [facility] [id number] 19:50:00* Test Item Value Reference Range Interpretation Comments GLUBED (test code = GLUBED) 188 mg/dL 74-106 H Performed by certified basin operator at [facility]) [id number] 19:49:00* Test Item Value Reference Range Interpretation Comments GLUBED (test code = GLUBED) 161 mg/dL 74-106 H Performed by certified basin operator at [facility]) [id number] 12:44:00* Test Item Value Reference Range Interpretation Comments GLUBED (test code = GLUBED) 158 mg/dL 74-106 H Performed by certified basin operator at [facility]) [id number] 08:15:00* Test Item Value Reference Range Interpretation Comments GLUBED (test code = GLUBED) 149 mg/dL 74-106 H Performed by certified basin operator at [facility] INFECTION CONTROL [id number] 06:09:00* Test Item Value Reference Range Interpretation Comments HEPATITIS C RNA BY PCR (QUAL) (test code = HCVRNAPCR) Notdetected AG HEPAT B SURF (test code = HBSAG) Nonreactive Index Nonreactive HEPATITIS B CORE ANTIBODY,TOT (test code = HBCAB) NEGA TIVE AB HEPATITIS C (test code = HCVAB) <0.1 0.0-0.9 INFCE Result Units: s/co ratio Negative: < 0.8 Indeterminate: 0.8 - 0.9 Positive: > 0.9 The CDC recommends that a positive HCV antibody result be followed up with a HCV Nucleic Acid Amplification test (911005). HIV 1 2 COMBO AG/AB SCREEN (test code = [id number]) AB/AG NO N REACTIVE NONREACTIVE NONREACTIVE HIV P24 ANTI GEN NONREACTIVE NONREACTIVE HIV 1&2 ANTIBODY NONREACTIVE THE HIV-1 P24 TEST HELPS DISTINGUISH ACUTE HIV-1INFECTIONFROM ESTABLISHED HIV-1 INFECTION WHEN THE SPECIMEN ISPOSITIVE FOR HIV-1 P24 ANTIGEN.HIV-1 P24 ANTIGEN IS HIGHEST IN THE FIRST FEW WEEKS AFTERINFECTION INFECTION CONTROL [id number] 06:09:00* Test Item Value Reference Range Interpretation Comments HEPATITIS C RNA BY PCR (QUAL) (test code = HCVRNAPCR) Notdetected AG HEPAT B SURF (test code = HBSAG) Nonreactive Index Nonreactive HEPATITIS B CORE ANTIBODY,TOT (test code = HBCAB) Negative Nega tive Performed At: [facility] [address] [id number] Jaret Jiménez MD Ph:[phone] AB HEPATITIS C (test code = HCVAB) <0.1 0.0-0.9 INFCE Result Units: s/co ratio Negative: < 0.8 Indeterminate: 0.8 - 0.9 Positive: > 0.9 The CDC recommends that a positive HCV antibody result be followed up with a HCV Nucleic Acid Amplification test (243180). HIV 1 2 COMBO AG/AB SCREEN (test code = [id number]) AB/AG NO N REACTIVE NONREACTIVE NONREACTIVE HIV P24 ANTI GEN NONREACTIVE NONREACTIVE HIV 1&2 ANTIBODY NONREACTIVE THE HIV-1 P24 TEST HELPS DISTINGUISH ACUTE HIV-1INFECTIONFROM ESTABLISHED HIV-1 INFECTION WHEN THE SPECIMEN ISPOSITIVE FOR HIV-1 P24 ANTIGEN.HIV-1 P24 ANTIGEN IS HIGHEST IN THE FIRST FEW WEEKS AFTERINFECTION BASIC METABOLIC [id number] 03:04:00* Test Item Value Reference Range Interpretation Comments SODIUM (test code = NA) 137 mmol/L 136-145 N POTASSIUM (test code = K) 3.8 mmol/L 3.5-5.1 N CHLORIDE (test code = CL) 100.0 mmol/L 98-107 N CARBON DIOXIDE (test code = CO2) 27.0 mmol/L 21-32 N ANION GAP (test code = GAP) 13.8 10-20 N GLUCOSE (test code = GLU) 167 mg/dL 74-106 H BLOOD UREA NITROGEN (test code = BUN) 29 mg/dL 7-18 H GLOMERULAR FILTRATION RATE (test code = GFR) 15 mL/min >=60 Estimated GFR by using Modified MDRD formula.Chronic kidney disease is defined as either kidney damageor GFR <60 mL/min/1.73 m2 for >3 months. CREATININE (test code = CREAT) 4.00 mg/dL 0.7-1.3 H BUN/CREATININE RATIO (test code = BUN/CREA) 7.3 10-20 L CALCIUM (test code = CA) 8.5 mg/dL 8.5-10.1 N BASIC METABOLIC [id number] 02:54:00* Test Item Value Reference Range Interpretation Comments SODIUM (test code = NA) 137 mmol/L 136-145 N POTASSIUM (test code = K) 3.8 mmol/L 3.5-5.1 N CHLORIDE (test code = CL) 100.0 mmol/L 98-107 N CARBON DIOXIDE (test code = CO2) mmol/L 21-32 ANION GAP (test code = GAP) 10-20 GLUCOSE (test code = GLU) mg/dL 74-106 BLOOD UREA NITROGEN (test code = BUN) mg/dL 7-18 GLOMERULAR FILTRATION RATE (test code = GFR) mL/min >=60 CREATININE (test code = CREAT) mg/dL 0.7-1.3 BUN/CREATININE RATIO (test code = BUN/CREA) 10-20 CALCIUM (test code = CA) mg/dL 8.5-10.1 CBC W/AUTO [id number] 02:41:00* Test Item Value Reference Range Interpretation Comments WHITE BLOOD CELL (test code = WBC) 8.3 K/mm3 4.5-12.5 N RED BLOOD CELL (test code = RBC) 2.92 mill/mm3 4.0-5.8 L HEMOGLOBIN (test code = HGB) 8.1 gram/dL 13.0-17.5 L HEMATOCRIT (test code = HCT) 25.9 % 42.0-52.0 L MEAN CELL VOLUME (test code = MCV) 88.7 fL 80-98 N MEAN CELL HGB (test code = MCH) 27.7 picogram 27.0-33.0 N MEAN CELL HGB CONCETRATION (test code = MCHC) 31.3 gram/dL 33.0-36. 0 L RED CELL DISTRIBUTION WIDTH (test code = RDW) 14.5 % 11.6-16. 2 N RED CELL DISTRIBUTION WIDTH SD (test code = RDW-SD) 46.1 fL 37 .0-51.0 N PLATELET COUNT (test code = PLT) 257 K/mm3 150-450 N MEAN PLATELET VOLUME (test code = MPV) 10.9 fL 6.7-11.0 N NEUTROPHIL % (test code = NT%) 76.2 % 39.0-69.0 H IMMATURE GRANULOCYTE % (test code = IG%) 1.1 % 0.0-5.0 N LYMPHOCYTE % (test code = LY%) 14.3 % 25.0-55.0 L MONOCYTE % (test code = MO%) 8.2 % 0.0-10.0 N EOSINOPHIL % (test code = EO%) 0.0 % 0.0-5.0 N BASOPHIL % (test code = BA%) 0.2 % 0.0-1.0 N NUCLEATED RBC % (test code = NRBC%) 0.0 % 0-0 N NEUTROPHIL # (test code = NT#) 6.30 K/mm3 1.8-7.7 N IMMATURE GRANULOCYTE # (test code = IG#) 0.09 x10 3/uL 0-0.03 H LYMPHOCYTE # (test code = LY#) 1.18 K/mm3 1.0-5.0 N MONOCYTE # (test code = MO#) 0.68 K/mm3 0-0.8 N EOSINOPHIL # (test code = EO#) 0.00 K/mm3 0.0-0.5 N BASOPHIL # (test code = BA#) 0.02 K/mm3 0.0-0.2 N NUCLEATED RBC # (test code = NRBC#) 0.00 K/mm3 0.0-0.1 N MANUAL DIFF REQUIRED (test code = MDIFF) NO [id number] 20:50:00* Test Item Value Reference Range Interpretation Comments GLUBED (test code = GLUBED) 128 mg/dL 74-106 H Performed by certified basin operator at [facility] [id number] 18:16:00* Test Item Value Reference Range Interpretation Comments GLUBED (test code = GLUBED) 172 mg/dL 74-106 H Performed by certified basin operator at [facility]) [id number] 18:16:00* Test Item Value Reference Range Interpretation Comments GLUBED (test code = GLUBED) 172 mg/dL 74-106 H Performed by certified basin operator at [facility]) EXTREMITY AMP.,[id number] 14:33:00 RUN DATE: 03/11/19 [facility] PAGE 1 RUN TIME: 1433 Specimen Inqui ry RUN USER: INTERFACE PATIENT: TORRES MAI ACCT #: [id number] [facility] #: [id number] AGE/SX: 58/M ROOM: [facility] [id number]/19/19ODESSA DR: Slava Gustafson MD : [id number] BED: A DIS: STATUS: ADM IN TLOC: SPEC #: [id number] RECD: 03/06/19 STATUS: SOUT REQ #: [id number] ANNETTE: [facility]05/[facility] [facility] DR: Jaqueline Roberts MD ENTERED: 03/06/19 SP TYPE: EXTREMITY OTHR DR: Rebeka Lugo DPM Franklin Morse DPTeddy Quezada MD, am,Jaqueline Saldana,Sana العراقي Pek Contreras DO Jd Womack MD,Shayan Salazar,Eric boss,Jayson Tejeda,Andrew Ibarra MDORDERED: GROSS COPIES TO: Josue Lugo DPM [address] [place] [address] Conor Morse DPM [address] [place], [place] [address] Teddy Lim MD [address] [place] [address] Jaqueline Roberts MD [address] [place] [address] Rojelio Saldana Pek Contreras DO [address] [place] [address] [place] [address] [facility] [address] [place], [place] [id number] CONTINUED ON NEXT PAGE RUN DATE: [facility] PAGE 2 RUN TIME: 1433 Specimen Inquiry RU N USER: INTERFACE ---- --------SPEC #: [id number] PATIENT: TORRES MAI #[id number] (Continued) COPIES TO: (Continued) Shayan Macdonald MD [address] [facility] [address] [place] [address] Eric Cano MD [address] [place] [address] Jayson Veloz MD [address] [address] [phone] Andrew Taylor MD [address] [facility] [address] [place] [address] PROCEDURES: GROSS (03/11/19-1008) TISSUES: RIGHT LEG - LOWER CLINICAL HISTORY COLLECTION DATE: 03/05/2019 OSTEOMYEL ITIS FINAL DIAGNOSIS Right lower leg, below knee amputation: U LCERATION WITH MARKED ACUTE INFLAMMATION, NECROSIS, FIBROSIS AND FAT NE CROSIS MARKED ATHEROSCLEROTIC CHANGES VIABLE SURGICAL MARGIN NEGATIVE FOR MALIGNANCY FA/sm D [address], [address] CONTINUED ON NEXT PAGE RUN DATE: 03/11/19 [facility] PAGE 3 RUN TIME: 14 33 Specimen Inquiry RUN USER: INTE FANNY SPEC #: [id number] PATIENT: TORRES MAI #[id number] (Co ntinued) MACROSCOPIC The specimen is received [...] section through area of ulcer ation/necrosis; 1B- labor representative proximal soft tissue margin en face; 1C- se ction of vessels, decal GROSS PERFORMED AT [facility] [address] [facility], [place] [address] (P)[phone] MICROSCOPIC All of the stains, including any controls performed, stain appropriately. MICROSCOPIC PERFORMED AT [facility] [address] [facility] [address] (P)[phone] PERFORM[address] SITE Diagnosis performed at : [facility] [address] [facility], [place] [address] CONTINUED ON NEXT PAGE RUN DATE: 03/11/19 [facility] PAGE 4 RUN TIME: 1433 Specimen Inquiry RUN USER: INTERFACE -- SPEC #: [id number] PATIENT: VASILETORRES #[id number] (Continued) Signed SIGNATURE ON FILE Hitesh Dougherty MD 03/11/19 1433 END OF REPORT [id number] 09:24:00* Test Item Value Reference Range Interpretation Comments GLUBED (test code = GLUBED) 57 mg/dL 74-106 L Performed by certified basin operator at [facility] BASIC METABOLIC [id number] 03:16:00* Test Item Value Reference Range Interpretation Comments SODIUM (test code = NA) 137 mmol/L 136-145 N POTASSIUM (test code = K) 3.8 mmol/L 3.5-5.1 N CHLORIDE (test code = CL) 99.0 mmol/L 98-107 N CARBON DIOXIDE (test code = CO2) 25.0 mmol/L 21-32 N ANION GAP (test code = GAP) 16.8 10-20 N GLUCOSE (test code = GLU) 116 mg/dL 74-106 H BLOOD UREA NITROGEN (test code = BUN) 55 mg/dL 7-18 H RESULT VERIFIED BY REPEAT ANALYSIS GLOMERULAR FILTRATION RATE (test code = GFR) 9 mL/min >=60 Estimated GFR by using Modified MDRD formula.Chronic kidney disease is defined as either kidney damageor GFR <60 mL/min/1.73 m2 for >3 months. CREATININE (test code = CREAT) 6.50 mg/dL 0.7-1.3 H BUN/CREATININE RATIO (test code = BUN/CREA) 8.5 10-20 L CALCIUM (test code = CA) 8.5 mg/dL 8.5-10.1 N CBC W/AUTO [id number] 02:30:00* Test Item Value Reference Range Interpretation Comments WHITE BLOOD CELL (test code = WBC) 8.4 K/mm3 4.5-12.5 N RED BLOOD CELL (test code = RBC) 3.06 mill/mm3 4.0-5.8 L HEMOGLOBIN (test code = HGB) 8.4 gram/dL 13.0-17.5 L HEMATOCRIT (test code = HCT) 27.0 % 42.0-52.0 L MEAN CELL VOLUME (test code = MCV) 88.2 fL 80-98 N MEAN CELL HGB (test code = MCH) 27.5 picogram 27.0-33.0 N MEAN CELL HGB CONCETRATION (test code = MCHC) 31.1 gram/dL 33.0-36. 0 L RED CELL DISTRIBUTION WIDTH (test code = RDW) 14.3 % 11.6-16. 2 N RED CELL DISTRIBUTION WIDTH SD (test code = RDW-SD) 45.1 fL 37 .0-51.0 N PLATELET COUNT (test code = PLT) 264 K/mm3 150-450 N MEAN PLATELET VOLUME (test code = MPV) 11.0 fL 6.7-11.0 N NEUTROPHIL % (test code = NT%) 77.5 % 39.0-69.0 H IMMATURE GRANULOCYTE % (test code = IG%) 1.0 % 0.0-5.0 N LYMPHOCYTE % (test code = LY%) 13.4 % 25.0-55.0 L MONOCYTE % (test code = MO%) 7.6 % 0.0-10.0 N EOSINOPHIL % (test code = EO%) 0.1 % 0.0-5.0 N BASOPHIL % (test code = BA%) 0.4 % 0.0-1.0 N NUCLEATED RBC % (test code = NRBC%) 0.0 % 0-0 N NEUTROPHIL # (test code = NT#) 6.52 K/mm3 1.8-7.7 N IMMATURE GRANULOCYTE # (test code = IG#) 0.08 x10 3/uL 0-0.03 H LYMPHOCYTE # (test code = LY#) 1.13 K/mm3 1.0-5.0 N MONOCYTE # (test code = MO#) 0.64 K/mm3 0-0.8 N EOSINOPHIL # (test code = EO#) 0.01 K/mm3 0.0-0.5 N BASOPHIL # (test code = BA#) 0.03 K/mm3 0.0-0.2 N NUCLEATED RBC # (test code = NRBC#) 0.00 K/mm3 0.0-0.1 N INFECTION CONTROL [id number] 21:47:00* Test Item Value Reference Range Interpretation Comments HEPATITIS C RNA BY PCR (QUAL) (test code = HCVRNAPCR) Notdetected AG HEPAT B SURF (test code = HBSAG) Nonreactive Index Nonreactive HEPATITIS B CORE ANTIBODY,TOT (test code = HBCAB) NEGA TIVE AB HEPATITIS C (test code = HCVAB) NEGATIVE HIV 1 2 COMBO AG/AB SCREEN (test code = [id number]) AB/AG NO N REACTIVE NONREACTIVE NONREACTIVE HIV P24 ANTI GEN NONREACTIVE NONREACTIVE HIV 1&2 ANTIBODY NONREACTIVE THE HIV-1 P24 TEST HELPS DISTINGUISH ACUTE HIV-1INFECTIONFROM ESTABLISHED HIV-1 INFECTION WHEN THE SPECIMEN ISPOSITIVE FOR HIV-1 P24 ANTIGEN.HIV-1 P24 ANTIGEN IS HIGHEST IN THE FIRST FEW WEEKS AFTERINFECTION INFECTION CONTROL [id number] 21:46:00* Test Item Value Reference Range Interpretation Comments HEPATITIS C RNA BY PCR (QUAL) (test code = HCVRNAPCR) Notdetected AG HEPAT B SURF (test code = HBSAG) Index Nonreactive HEPATITIS B CORE ANTIBODY,TOT (test code = HBCAB) NEGA TIVE AB HEPATITIS C (test code = HCVAB) NEGATIVE HIV 1 2 COMBO AG/AB SCREEN (test code = [id number]) AB/AG NO N REACTIVE NONREACTIVE NONREACTIVE HIV P24 ANTI GEN NONREACTIVE NONREACTIVE HIV 1&2 ANTIBODY NONREACTIVE THE HIV-1 P24 TEST HELPS DISTINGUISH ACUTE HIV-1INFECTIONFROM ESTABLISHED HIV-1 INFECTION WHEN THE SPECIMEN ISPOSITIVE FOR HIV-1 P24 ANTIGEN.HIV-1 P24 ANTIGEN IS HIGHEST IN THE FIRST FEW WEEKS AFTERINFECTION INFECTION CONTROL [id number] 21:27:00* Test Item Value Reference Range Interpretation Comments HEPATITIS C RNA BY PCR (QUAL) (test code = HCVRNAPCR) Notdetected AG HEPAT B SURF (test code = HBSAG) Index Nonreactive HEPATITIS B CORE ANTIBODY,TOT (test code = HBCAB) NEGA TIVE AB HEPATITIS C (test code = HCVAB) NEGATIVE HIV 1 2 COMBO AG/AB SCREEN (test code = [id number]) AB/AG NO N REACTIVE NONREACTIVE NONREACTIVE HIV P24 ANTI GEN NONREACTIVE NONREACTIVE HIV 1&2 ANTIBODY NONREACTIVE THE HIV-1 P24 TEST HELPS DISTINGUISH ACUTE HIV-1INFECTIONFROM ESTABLISHED HIV-1 INFECTION WHEN THE SPECIMEN ISPOSITIVE FOR HIV-1 P24 ANTIGEN.RESULTS CALLED TO SHEY MATTSON BY SHEYJP1 03/10/19 2127HIV-1 P24 ANTIGEN IS HIGHEST IN THE FIRST FEW WEEKS AFTERINFECTION [id number] 20:32:00* Test Item Value Reference Range Interpretation Comments GLUBED (test code = GLUBED) 223 mg/dL 74-106 H Performed by certified basin operator at [facility] [id number] 15:58:00* Test Item Value Reference Range Interpretation Comments GLUBED (test code = GLUBED) 173 mg/dL 74-106 H Performed by certified basin operator at [facility] [id number] 11:54:00* Test Item Value Reference Range Interpretation Comments GLUBED (test code = GLUBED) 177 mg/dL 74-106 H Performed by certified basin operator at [facility]) - SP FLUORO GUID CTRL ACC [id number] 09:56:00 Name: TORRES MAI [facility] : 1960 Age/S: 58 / M [address] [facility] Unit #: [id number] Loc: [place] [address] Phys: Slava Gustafson MD Acct: [id number] Dis Date: Status: ADM IN PHONE #: [phone] Exam Date: 03/06/2019 0947 FAX #: [phone] Reason: / EXAMS: CPT CODE: [id number] SP FLUORO GUID CTRL ACC DEV 28947 Fluoro Time: 21 DAP (Gy m2): 0.73 [...] monitored by a trained registered nurse. Physician fokv-gj-nzof sedation time was 15 minutes. After obtaining [...] 1 Signed Report (CONTINUED) Name: TORRES MAI [facility] : 1960 Age/S: 58 / M [address] Unit #: [id number] Loc: [place] [address] Phys: Slava Gustafson MD Acct: [id number] Dis Date: Status: ADM IN PHONE #: [phone] Exam Date: 03/06/2019 0947 FAX #: [phone] Reason: / EXAMS: CPT CODE: [id number] SP FLUORO GUID CTRL ACC DEV 31451 Fluoro Time: 21 DAP (Gy m2): 0.73 Air Kerma (mGy): 2 <Continued> CC: Slava Gustafson MD Technologist: JAQUELINE LING [facility] Trnscb Date/Time: 03/10/2019 (0956) Thang Orig Print D/T: S: 03/10/2019 (0959) PAGE 2 Signed Report - US GUIDANCE VASC [id number] 09:56:00 Name: TORRES MAI [facility] : 1960 Age/S: 58 / M [address] Unit #: [id number] Loc: [place] [address] Phys: Slava Gustafson MD Acct: [id number] Dis Date: Status: ADM IN PHONE #: [phone] Exam Date: 03/06/2019 0947 FAX #: [phone] Reason: / EXAMS: CPT CODE: [id number] US GUIDANCE VASC ACCESS 14185 Fluoro Time: DAP (Gy m2): Air Kerma [...] monitored by a trained registered nurse. Physician figg-fk-cfyz sedation time was 15 minutes. After obtaining [...] 1 Signed Report (CONTINUED) Name: TORRES MAI [facility] : 1960 Age/S: 58 / M [address] Unit #: [id number] Loc: [place] [address] Phys: Slava Gustafson MD Acct: [id number] Dis Date: Status: ADM IN PHONE #: [phone] Exam Date: 03/06/201947 FAX #: [phone] Reason: / EXAMS: CPT CODE: [id number] US GUIDANCE VASC ACCESS 73614 Fluoro Time: DAP (Gy m2): Air Kerma (mGy): <Continued> CC: Slava Gustafson MD Technologist: JAQUELINE LING [employer] Trnscb Date/Time: 03/10/2019 (0956) [email or web address] Orig Print D/T: S: 03/10/2019 (0959) PAGE 2 Signed Report [id number] 08:05:00* Test Item Value Reference Range Interpretation Comments GLUBED (test code = GLUBED) 111 mg/dL 74-106 H Performed by certified basin operator at [facility] BASIC METABOLIC [id number] 06:04:00* Test Item Value Reference Range Interpretation Comments SODIUM (test code = NA) 136 mmol/L 136-145 N POTASSIUM (test code = K) 3.9 mmol/L 3.5-5.1 N CHLORIDE (test code = CL) 99.0 mmol/L 98-107 N CARBON DIOXIDE (test code = CO2) 27.0 mmol/L 21-32 N ANION GAP (test code = GAP) 13.9 10-20 N GLUCOSE (test code = GLU) 91 mg/dL 74-106 N BLOOD UREA NITROGEN (test code = BUN) 37 mg/dL 7-18 H GLOMERULAR FILTRATION RATE (test code = GFR) 11 mL/min >=60 Estimated GFR by using Modified MDRD formula.Chronic kidney disease is defined as either kidney damageor GFR <60 mL/min/1.73 m2 for >3 months. CREATININE (test code = CREAT) 5.50 mg/dL 0.7-1.3 H BUN/CREATININE RATIO (test code = BUN/CREA) 6.8 10-20 L CALCIUM (test code = CA) 8.0 mg/dL 8.5-10.1 L BASIC METABOLIC [id number] 05:54:00* Test Item Value Reference Range Interpretation Comments SODIUM (test code = NA) 136 mmol/L 136-145 N POTASSIUM (test code = K) 3.9 mmol/L 3.5-5.1 N CHLORIDE (test code = CL) 99.0 mmol/L 98-107 N CARBON DIOXIDE (test code = CO2) mmol/L 21-32 ANION GAP (test code = GAP) 10-20 GLUCOSE (test code = GLU) mg/dL 74-106 BLOOD UREA NITROGEN (test code = BUN) mg/dL 7-18 GLOMERULAR FILTRATION RATE (test code = GFR) mL/min >=60 CREATININE (test code = CREAT) mg/dL 0.7-1.3 BUN/CREATININE RATIO (test code = BUN/CREA) 10-20 CALCIUM (test code = CA) 8.0 mg/dL 8.5-10.1 L [id number] 21:06:00* Test Item Value Reference Range Interpretation Comments GLUBED (test code = GLUBED) 177 mg/dL 74-106 H Performed by certified basin operator at [facility] [id number] 15:43:00* Test Item Value Reference Range Interpretation Comments GLUBED (test code = GLUBED) 155 mg/dL 74-106 H Performed by certified basin operator at [facility] [id number] 12:14:00* Test Item Value Reference Range Interpretation Comments GLUBED (test code = GLUBED) 131 mg/dL 74-106 H Performed by certified basin operator at [facility] [id number] 08:08:00* Test Item Value Reference Range Interpretation Comments GLUBED (test code = GLUBED) 117 mg/dL 74-106 H Performed by certified basin operator at [facility] BASIC METABOLIC [id number] 04:24:00* Test Item Value Reference Range Interpretation Comments SODIUM (test code = NA) 139 mmol/L 136-145 N POTASSIUM (test code = K) 3.8 mmol/L 3.5-5.1 N CHLORIDE (test code = CL) 101.0 mmol/L 98-107 N CARBON DIOXIDE (test code = CO2) 29.0 mmol/L 21-32 N ANION GAP (test code = GAP) 12.8 10-20 N GLUCOSE (test code = GLU) 154 mg/dL 74-106 H BLOOD UREA NITROGEN (test code = BUN) 19 mg/dL 7-18 H GLOMERULAR FILTRATION RATE (test code = GFR) 21 mL/min >=60 Estimated GFR by using Modified MDRD formula.Chronic kidney disease is defined as either kidney damageor GFR <60 mL/min/1.73 m2 for >3 months. CREATININE (test code = CREAT) 3.10 mg/dL 0.7-1.3 H BUN/CREATININE RATIO (test code = BUN/CREA) 6.1 10-20 L CALCIUM (test code = CA) 8.2 mg/dL 8.5-10.1 L BASIC METABOLIC [id number] 04:19:00* Test Item Value Reference Range Interpretation Comments SODIUM (test code = NA) 139 mmol/L 136-145 N POTASSIUM (test code = K) 3.8 mmol/L 3.5-5.1 N CHLORIDE (test code = CL) 101.0 mmol/L 98-107 N CARBON DIOXIDE (test code = CO2) mmol/L 21-32 ANION GAP (test code = GAP) 10-20 GLUCOSE (test code = GLU) mg/dL 74-106 BLOOD UREA NITROGEN (test code = BUN) mg/dL 7-18 GLOMERULAR FILTRATION RATE (test code = GFR) mL/min >=60 CREATININE (test code = CREAT) mg/dL 0.7-1.3 BUN/CREATININE RATIO (test code = BUN/CREA) 10-20 CALCIUM (test code = CA) mg/dL 8.5-10.1 CBC W/AUTO [id number] 03:34:00* Test Item Value Reference Range Interpretation Comments WHITE BLOOD CELL (test code = WBC) 10.0 K/mm3 4.5-12.5 N RED BLOOD CELL (test code = RBC) 2.99 mill/mm3 4.0-5.8 L HEMOGLOBIN (test code = HGB) 8.3 gram/dL 13.0-17.5 L HEMATOCRIT (test code = HCT) 27.0 % 42.0-52.0 L MEAN CELL VOLUME (test code = MCV) 90.3 fL 80-98 N MEAN CELL HGB (test code = MCH) 27.8 picogram 27.0-33.0 N MEAN CELL HGB CONCETRATION (test code = MCHC) 30.7 gram/dL 33.0-36. 0 L RED CELL DISTRIBUTION WIDTH (test code = RDW) 14.2 % 11.6-16. 2 N RED CELL DISTRIBUTION WIDTH SD (test code = RDW-SD) 45.5 fL 37 .0-51.0 N PLATELET COUNT (test code = PLT) 252 K/mm3 150-450 N MEAN PLATELET VOLUME (test code = MPV) 11.0 fL 6.7-11.0 N NEUTROPHIL % (test code = NT%) 79.1 % 39.0-69.0 H IMMATURE GRANULOCYTE % (test code = IG%) 1.1 % 0.0-5.0 N LYMPHOCYTE % (test code = LY%) 11.1 % 25.0-55.0 L MONOCYTE % (test code = MO%) 8.3 % 0.0-10.0 N EOSINOPHIL % (test code = EO%) 0.1 % 0.0-5.0 N BASOPHIL % (test code = BA%) 0.3 % 0.0-1.0 N NUCLEATED RBC % (test code = NRBC%) 0.0 % 0-0 N NEUTROPHIL # (test code = NT#) 7.94 K/mm3 1.8-7.7 H IMMATURE GRANULOCYTE # (test code = IG#) 0.11 x10 3/uL 0-0.03 H LYMPHOCYTE # (test code = LY#) 1.11 K/mm3 1.0-5.0 N MONOCYTE # (test code = MO#) 0.83 K/mm3 0-0.8 H EOSINOPHIL # (test code = EO#) 0.01 K/mm3 0.0-0.5 N BASOPHIL # (test code = BA#) 0.03 K/mm3 0.0-0.2 N NUCLEATED RBC # (test code = NRBC#) 0.00 K/mm3 0.0-0.1 N MANUAL DIFF REQUIRED (test code = MDIFF) NO [id number] 20:12:00* Test Item Value Reference Range Interpretation Comments GLUBED (test code = GLUBED) 278 mg/dL 74-106 H Performed by certified basin operator at [facility] [id number] 17:02:00* Test Item Value Reference Range Interpretation Comments GLUBED (test code = GLUBED) 299 mg/dL 74-106 H Performed by certified basin operator at [facility] [id number] 13:26:00* Test Item Value Reference Range Interpretation Comments GLUBED (test code = GLUBED) 241 mg/dL 74-106 H Performed by certified basin operator at [facility] [id number] 08:33:00* Test Item Value Reference Range Interpretation Comments GLUBED (test code = GLUBED) 135 mg/dL 74-106 H Performed by certified basin operator at [facility] HEPATITIS B CORE ANTIBODY,[id number] 07:13:00* Test Item Value Reference Range Interpretation Comments HEPATITIS B CORE ANTIBODY,TOT (test code = HBCAB) Negative Nega tive Performed At: [facility] [address] [id number] Kyle L MD Ph:[phone] AB HEPATITIS B [id number] 04:07:00* Test Item Value Reference Range Interpretation Comments AB HEPATITIS B SURFACE (test code = HBSAB) Non Reactive () Non Reactive: Inconsistent with immunity, less than 10 mIU/mL Reactive: Consistent with immunity, greater than 9.9 mIU/mL HEPATITIS B CORE ANTIBODY,[id number] 04:07:00* Test Item Value Reference Range Interpretation Comments HEPATITIS B CORE ANTIBODY,IGM (test code = HBCMAB) NEG ATIVE AB HEPATITIS B [id number] 04:07:00* Test Item Value Reference Range Interpretation Comments AB HEPATITIS B SURFACE (test code = HBSAB) Non Reactive () Non Reactive: Inconsistent with immunity, less than 10 mIU/mL Reactive: Consistent with immunity, greater than 9.9 mIU/mL HEPATITIS B CORE ANTIBODY,[id number] 04:07:00* Test Item Value Reference Range Interpretation Comments HEPATITIS B CORE ANTIBODY,IGM (test code = HBCMAB) Negative Neg ative Performed At: [facility] [address] [id number] Jiménez MD Ph:[phone] BASIC METABOLIC [id number] 03:12:00* Test Item Value Reference Range Interpretation Comments SODIUM (test code = NA) 138 mmol/L 136-145 N POTASSIUM (test code = K) 3.4 mmol/L 3.5-5.1 L CHLORIDE (test code = CL) 98.0 mmol/L 98-107 N CARBON DIOXIDE (test code = CO2) 30.0 mmol/L 21-32 N ANION GAP (test code = GAP) 13.4 10-20 N GLUCOSE (test code = GLU) 153 mg/dL 74-106 H BLOOD UREA NITROGEN (test code = BUN) 29 mg/dL 7-18 H GLOMERULAR FILTRATION RATE (test code = GFR) 19 mL/min >=60 Estimated GFR by using Modified MDRD formula.Chronic kidney disease is defined as either kidney damageor GFR <60 mL/min/1.73 m2 for >3 months. CREATININE (test code = CREAT) 3.30 mg/dL 0.7-1.3 H BUN/CREATININE RATIO (test code = BUN/CREA) 8.9 10-20 L CALCIUM (test code = CA) 8.5 mg/dL 8.5-10.1 N CBC W/AUTO [id number] 03:03:00* Test Item Value Reference Range Interpretation Comments WHITE BLOOD CELL (test code = WBC) 11.8 K/mm3 4.5-12.5 N RED BLOOD CELL (test code = RBC) 2.92 mill/mm3 4.0-5.8 L HEMOGLOBIN (test code = HGB) 8.3 gram/dL 13.0-17.5 L HEMATOCRIT (test code = HCT) 26.2 % 42.0-52.0 L MEAN CELL VOLUME (test code = MCV) 89.7 fL 80-98 N MEAN CELL HGB (test code = MCH) 28.4 picogram 27.0-33.0 N MEAN CELL HGB CONCETRATION (test code = MCHC) 31.7 gram/dL 33.0-36. 0 L RED CELL DISTRIBUTION WIDTH (test code = RDW) 14.4 % 11.6-16. 2 N RED CELL DISTRIBUTION WIDTH SD (test code = RDW-SD) 45.6 fL 37 .0-51.0 N PLATELET COUNT (test code = PLT) 268 K/mm3 150-450 N MEAN PLATELET VOLUME (test code = MPV) 11.4 fL 6.7-11.0 H NEUTROPHIL % (test code = NT%) 81.0 % 39.0-69.0 H IMMATURE GRANULOCYTE % (test code = IG%) 0.8 % 0.0-5.0 N LYMPHOCYTE % (test code = LY%) 10.3 % 25.0-55.0 L MONOCYTE % (test code = MO%) 7.6 % 0.0-10.0 N EOSINOPHIL % (test code = EO%) 0.0 % 0.0-5.0 N BASOPHIL % (test code = BA%) 0.3 % 0.0-1.0 N NUCLEATED RBC % (test code = NRBC%) 0.0 % 0-0 N NEUTROPHIL # (test code = NT#) 9.53 K/mm3 1.8-7.7 H IMMATURE GRANULOCYTE # (test code = IG#) 0.10 x10 3/uL 0-0.03 H LYMPHOCYTE # (test code = LY#) 1.21 K/mm3 1.0-5.0 N MONOCYTE # (test code = MO#) 0.90 K/mm3 0-0.8 H EOSINOPHIL # (test code = EO#) 0.00 K/mm3 0.0-0.5 N BASOPHIL # (test code = BA#) 0.03 K/mm3 0.0-0.2 N NUCLEATED RBC # (test code = NRBC#) 0.00 K/mm3 0.0-0.1 N MANUAL DIFF REQUIRED (test code = MDIFF) NO [id number] 20:32:00* Test Item Value Reference Range Interpretation Comments GLUBED (test code = GLUBED) 228 mg/dL 74-106 H Performed by certified basin operator at [facility] [id number] 16:07:00* Test Item Value Reference Range Interpretation Comments GLUBED (test code = GLUBED) 238 mg/dL 74-106 H Performed by certified basin operator at [facility] [id number] 12:14:00* Test Item Value Reference Range Interpretation Comments GLUBED (test code = GLUBED) 228 mg/dL 74-106 H Performed by certified basin operator at [facility] [id number] 08:16:00* Test Item Value Reference Range Interpretation Comments GLUBED (test code = GLUBED) 224 mg/dL 74-106 H Performed by certified basin operator at [facility] BASIC METABOLIC [id number] 03:20:00* Test Item Value Reference Range Interpretation Comments SODIUM (test code = NA) 140 mmol/L 136-145 N POTASSIUM (test code = K) 3.9 mmol/L 3.5-5.1 N CHLORIDE (test code = CL) 102.0 mmol/L 98-107 N CARBON DIOXIDE (test code = CO2) 26.0 mmol/L 21-32 N ANION GAP (test code = GAP) 15.9 10-20 N GLUCOSE (test code = GLU) 210 mg/dL 74-106 H BLOOD UREA NITROGEN (test code = BUN) 52 mg/dL 7-18 H RESULT VERIFIED BY REPEAT ANALYSIS GLOMERULAR FILTRATION RATE (test code = GFR) 16 mL/min >=60 Estimated GFR by using Modified MDRD formula.Chronic kidney disease is defined as either kidney damageor GFR <60 mL/min/1.73 m2 for >3 months. CREATININE (test code = CREAT) 3.80 mg/dL 0.7-1.3 H BUN/CREATININE RATIO (test code = BUN/CREA) 13.7 10-20 N CALCIUM (test code = CA) 8.3 mg/dL 8.5-10.1 L BASIC METABOLIC [id number] 03:06:00* Test Item Value Reference Range Interpretation Comments SODIUM (test code = NA) 140 mmol/L 136-145 N POTASSIUM (test code = K) 3.9 mmol/L 3.5-5.1 N CHLORIDE (test code = CL) 102.0 mmol/L 98-107 N CARBON DIOXIDE (test code = CO2) mmol/L 21-32 ANION GAP (test code = GAP) 10-20 GLUCOSE (test code = GLU) mg/dL 74-106 BLOOD UREA NITROGEN (test code = BUN) mg/dL 7-18 GLOMERULAR FILTRATION RATE (test code = GFR) mL/min >=60 CREATININE (test code = CREAT) mg/dL 0.7-1.3 BUN/CREATININE RATIO (test code = BUN/CREA) 10-20 CALCIUM (test code = CA) mg/dL 8.5-10.1 CBC W/AUTO [id number] 01:59:00* Test Item Value Reference Range Interpretation Comments WHITE BLOOD CELL (test code = WBC) 12.2 K/mm3 4.5-12.5 N RED BLOOD CELL (test code = RBC) 3.08 mill/mm3 4.0-5.8 L HEMOGLOBIN (test code = HGB) 8.7 gram/dL 13.0-17.5 L HEMATOCRIT (test code = HCT) 27.5 % 42.0-52.0 L MEAN CELL VOLUME (test code = MCV) 89.3 fL 80-98 N MEAN CELL HGB (test code = MCH) 28.2 picogram 27.0-33.0 N MEAN CELL HGB CONCETRATION (test code = MCHC) 31.6 gram/dL 33.0-36. 0 L RED CELL DISTRIBUTION WIDTH (test code = RDW) 14.4 % 11.6-16. 2 N RED CELL DISTRIBUTION WIDTH SD (test code = RDW-SD) 45.7 fL 37 .0-51.0 N PLATELET COUNT (test code = PLT) 271 K/mm3 150-450 N MEAN PLATELET VOLUME (test code = MPV) 11.1 fL 6.7-11.0 H NEUTROPHIL % (test code = NT%) 84.6 % 39.0-69.0 H IMMATURE GRANULOCYTE % (test code = IG%) 1.1 % 0.0-5.0 N LYMPHOCYTE % (test code = LY%) 6.9 % 25.0-55.0 L MONOCYTE % (test code = MO%) 7.2 % 0.0-10.0 N EOSINOPHIL % (test code = EO%) 0.0 % 0.0-5.0 N BASOPHIL % (test code = BA%) 0.2 % 0.0-1.0 N NUCLEATED RBC % (test code = NRBC%) 0.0 % 0-0 N NEUTROPHIL # (test code = NT#) 10.28 K/mm3 1.8-7.7 H IMMATURE GRANULOCYTE # (test code = IG#) 0.13 x10 3/uL 0-0.03 H LYMPHOCYTE # (test code = LY#) 0.84 K/mm3 1.0-5.0 L MONOCYTE # (test code = MO#) 0.87 K/mm3 0-0.8 H EOSINOPHIL # (test code = EO#) 0.00 K/mm3 0.0-0.5 N BASOPHIL # (test code = BA#) 0.03 K/mm3 0.0-0.2 N NUCLEATED RBC # (test code = NRBC#) 0.00 K/mm3 0.0-0.1 N MANUAL DIFF REQUIRED (test code = MDIFF) NO [id number] 20:24:00* Test Item Value Reference Range Interpretation Comments GLUBED (test code = GLUBED) 254 mg/dL 74-106 H Performed by certified basin operator at [facility] ([facility]) [id number] 15:38:00* Test Item Value Reference Range Interpretation Comments GLUBED (test code = GLUBED) 181 mg/dL 74-106 H Performed by certified basin operator at [facility] ([facility]) BASIC METABOLIC [id number] 11:10:00* Test Item Value Reference Range Interpretation Comments SODIUM (test code = NA) 138 mmol/L 136-145 N POTASSIUM (test code = K) 3.9 mmol/L 3.5-5.1 N CHLORIDE (test code = CL) 100.0 mmol/L 98-107 N CARBON DIOXIDE (test code = CO2) 28.0 mmol/L 21-32 N ANION GAP (test code = GAP) 13.9 10-20 N GLUCOSE (test code = GLU) 124 mg/dL 74-106 H BLOOD UREA NITROGEN (test code = BUN) 73 mg/dL 7-18 H GLOMERULAR FILTRATION RATE (test code = GFR) 12 mL/min >=60 Estimated GFR by using Modified MDRD formula.Chronic kidney disease is defined as either kidney damageor GFR <60 mL/min/1.73 m2 for >3 months. CREATININE (test code = CREAT) 4.90 mg/dL 0.7-1.3 H BUN/CREATININE RATIO (test code = BUN/CREA) 15.0 10-20 N CALCIUM (test code = CA) 8.3 mg/dL 8.5-10.1 L BASIC METABOLIC [id number] 11:08:00* Test Item Value Reference Range Interpretation Comments SODIUM (test code = NA) 138 mmol/L 136-145 N POTASSIUM (test code = K) 3.9 mmol/L 3.5-5.1 N CHLORIDE (test code = CL) 100.0 mmol/L 98-107 N CARBON DIOXIDE (test code = CO2) 28.0 mmol/L 21-32 N ANION GAP (test code = GAP) 13.9 10-20 N GLUCOSE (test code = GLU) mg/dL 74-106 BLOOD UREA NITROGEN (test code = BUN) 73 mg/dL 7-18 H GLOMERULAR FILTRATION RATE (test code = GFR) mL/min >=60 CREATININE (test code = CREAT) mg/dL 0.7-1.3 BUN/CREATININE RATIO (test code = BUN/CREA) 10-20 CALCIUM (test code = CA) 8.3 mg/dL 8.5-10.1 L - XR CHEST 1 [id number] 10:23:00 FAX: Slava Gustafson MD [phone] [place]: St: [facility] FAX: Jd Montalvo MD [phone] Name: TORRES MAI [facility] : 1960 Age/S: 58/M [address] [facility] Unit #: [id number] Loc: [address] [place] [address] Phys: Jd Womack MD Acct: [id number] Dis Date: Status: ADM IN PHONE #: [phone] Exam Date: 03/06/2019 1005 FAX #: [phone] Reason: hypoxemia EXAMS: CPT CODE: [id number] XR CHEST 1 V [id number] REASON FOR EXAM: hypoxemia Exam Order Date: [...] Slava Gustafson MD; Jd Reyna MD Technologist: ALLAN FRASER) Trnscrd Date/Time/By: 03/06/2019 (1023) : By: [email or web address] Orig Print D/T: S: 03/06/2019 (6509) PAGE 1 Signed Report [id number] 08:30:00* Test Item Value Reference Range Interpretation Comments GLUBED (test code = GLUBED) 129 mg/dL 74-106 H Performed by certified basin operator at [facility] ([facility]) PROTHROMBIN [id number] 07:45:00* Test Item Value Reference Range Interpretation Comments PROTHROMBIN TIME PATIENT (test code = PTP) 15.3 seconds 9.0-14.0 H INTERNATIONAL NORMAL RATIO (test code = INR) 1.3 0.8-1.2 H The therapeutic range for oral anticoagulant therapy [...] PHLEBO TOMIST: NEED FOR SURGERY 03/06/19THROMBOPLASTIN TIME [id number] 07:45:00 * Test Item Value Reference Range Interpretation Comments THROMBOPLASTIN TIME PARTIAL (test code = PTT) 33.7 seconds 25.0-36. 5 N IS PATIENT ON ANTICOAGULANTS? YLIST ANTICOAGULANTS HEPARINCOMMENTS TO PHLEBO TOMIST: NEED FOR SURGERY 03/06/19CBC W/AUTO [id number] 06:42:00* Test Item Value Reference Range Interpretation Comments WHITE BLOOD CELL (test code = WBC) 12.1 K/mm3 4.5-12.5 N RED BLOOD CELL (test code = RBC) 3.09 mill/mm3 4.0-5.8 L HEMOGLOBIN (test code = HGB) 8.6 gram/dL 13.0-17.5 L HEMATOCRIT (test code = HCT) 27.6 % 42.0-52.0 L MEAN CELL VOLUME (test code = MCV) 89.3 fL 80-98 N MEAN CELL HGB (test code = MCH) 27.8 picogram 27.0-33.0 N MEAN CELL HGB CONCETRATION (test code = MCHC) 31.2 gram/dL 33.0-36. 0 L RED CELL DISTRIBUTION WIDTH (test code = RDW) 14.6 % 11.6-16. 2 N RED CELL DISTRIBUTION WIDTH SD (test code = RDW-SD) 46.8 fL 37 .0-51.0 N PLATELET COUNT (test code = PLT) 262 K/mm3 150-450 N MEAN PLATELET VOLUME (test code = MPV) 11.0 fL 6.7-11.0 N NEUTROPHIL % (test code = NT%) 84.2 % 39.0-69.0 H IMMATURE GRANULOCYTE % (test code = IG%) 1.6 % 0.0-5.0 N LYMPHOCYTE % (test code = LY%) 7.6 % 25.0-55.0 L MONOCYTE % (test code = MO%) 6.3 % 0.0-10.0 N EOSINOPHIL % (test code = EO%) 0.0 % 0.0-5.0 N BASOPHIL % (test code = BA%) 0.3 % 0.0-1.0 N NUCLEATED RBC % (test code = NRBC%) 0.0 % 0-0 N NEUTROPHIL # (test code = NT#) 10.23 K/mm3 1.8-7.7 H IMMATURE GRANULOCYTE # (test code = IG#) 0.19 x10 3/uL 0-0.03 H LYMPHOCYTE # (test code = LY#) 0.92 K/mm3 1.0-5.0 L MONOCYTE # (test code = MO#) 0.76 K/mm3 0-0.8 N EOSINOPHIL # (test code = EO#) 0.00 K/mm3 0.0-0.5 N BASOPHIL # (test code = BA#) 0.04 K/mm3 0.0-0.2 N NUCLEATED RBC # (test code = NRBC#) 0.00 K/mm3 0.0-0.1 N CBC W/AUTO [id number] 02:38:00* Test Item Value Reference Range Interpretation Comments WHITE BLOOD CELL (test code = WBC) 13.0 K/mm3 4.5-12.5 H RED BLOOD CELL (test code = RBC) 3.01 mill/mm3 4.0-5.8 L HEMOGLOBIN (test code = HGB) 8.6 gram/dL 13.0-17.5 L HEMATOCRIT (test code = HCT) 26.5 % 42.0-52.0 L MEAN CELL VOLUME (test code = MCV) 88.0 fL 80-98 N MEAN CELL HGB (test code = MCH) 28.6 picogram 27.0-33.0 N MEAN CELL HGB CONCETRATION (test code = MCHC) 32.5 gram/dL 33.0-36. 0 L RED CELL DISTRIBUTION WIDTH (test code = RDW) 14.5 % 11.6-16. 2 N RED CELL DISTRIBUTION WIDTH SD (test code = RDW-SD) 46.2 fL 37 .0-51.0 N PLATELET COUNT (test code = PLT) 283 K/mm3 150-450 N MEAN PLATELET VOLUME (test code = MPV) 11.5 fL 6.7-11.0 H NEUTROPHIL % (test code = NT%) 85.9 % 39.0-69.0 H IMMATURE GRANULOCYTE % (test code = IG%) 1.2 % 0.0-5.0 N LYMPHOCYTE % (test code = LY%) 7.1 % 25.0-55.0 L MONOCYTE % (test code = MO%) 5.5 % 0.0-10.0 N EOSINOPHIL % (test code = EO%) 0.0 % 0.0-5.0 N BASOPHIL % (test code = BA%) 0.3 % 0.0-1.0 N NUCLEATED RBC % (test code = NRBC%) 0.0 % 0-0 N NEUTROPHIL # (test code = NT#) 11.14 K/mm3 1.8-7.7 H IMMATURE GRANULOCYTE # (test code = IG#) 0.16 x10 3/uL 0-0.03 H LYMPHOCYTE # (test code = LY#) 0.92 K/mm3 1.0-5.0 L MONOCYTE # (test code = MO#) 0.71 K/mm3 0-0.8 N EOSINOPHIL # (test code = EO#) 0.00 K/mm3 0.0-0.5 N BASOPHIL # (test code = BA#) 0.04 K/mm3 0.0-0.2 N NUCLEATED RBC # (test code = NRBC#) 0.00 K/mm3 0.0-0.1 N BASIC METABOLIC [id number] 02:36:00* Test Item Value Reference Range Interpretation Comments SODIUM (test code = NA) 140 mmol/L 136-145 N POTASSIUM (test code = K) 3.9 mmol/L 3.5-5.1 N CHLORIDE (test code = CL) 100.0 mmol/L 98-107 N CARBON DIOXIDE (test code = CO2) 26.0 mmol/L 21-32 N ANION GAP (test code = GAP) 17.9 10-20 N GLUCOSE (test code = GLU) 147 mg/dL 74-106 H BLOOD UREA NITROGEN (test code = BUN) 76 mg/dL 7-18 H GLOMERULAR FILTRATION RATE (test code = GFR) 12 mL/min >=60 Estimated GFR by using Modified MDRD formula.Chronic kidney disease is defined as either kidney damageor GFR <60 mL/min/1.73 m2 for >3 months. CREATININE (test code = CREAT) 5.00 mg/dL 0.7-1.3 H BUN/CREATININE RATIO (test code = BUN/CREA) 15.2 10-20 N CALCIUM (test code = CA) 8.5 mg/dL 8.5-10.1 N [id number] 02:36:00* Test Item Value Reference Range Interpretation Comments MAGNESIUM (test code = MAG) 2.3 mg/dL 1.8-2.4 N [id number] 20:37:00* Test Item Value Reference Range Interpretation Comments GLUBED (test code = GLUBED) 142 mg/dL 74-106 H Performed by certified basin operator at [facility]) [id number] 17:48:00* Test Item Value Reference Range Interpretation Comments GLUBED (test code = GLUBED) 124 mg/dL 74-106 H Performed by certified basin operator at [facility]) [id number] 12:40:00* Test Item Value Reference Range Interpretation Comments GLUBED (test code = GLUBED) 97 mg/dL 74-106 N Performed by certified basin operator at [facility])Notified Nurse~ AG HEPAT B [id number] 11:27:00* Test Item Value Reference Range Interpretation Comments AG HEPAT B SURF (test code = HBSAG) Nonreactive Index Nonreactive URIC [id number] 10:57:00* Test Item Value Reference Range Interpretation Comments URIC ACID (test code = URIC) 4.8 mg/dL 2.6-7.2 N [id number] 08:40:00* Test Item Value Reference Range Interpretation Comments GLUBED (test code = GLUBED) 107 mg/dL 74-106 H Performed by certified basin operator at [facility])Notified Nurse~ HGB [id number] 05:36:00* Test Item Value Reference Range Interpretation Comments HEMOGLOBIN (test code = HGB) 8.6 gram/dL 13.0-17.5 L HEMATOCRIT (test code = HCT) 27.5 % 42.0-52.0 L BASIC METABOLIC [id number] 05:20:00* Test Item Value Reference Range Interpretation Comments SODIUM (test code = NA) 137 mmol/L 136-145 N POTASSIUM (test code = K) 3.6 mmol/L 3.5-5.1 N CHLORIDE (test code = CL) 99.0 mmol/L 98-107 N CARBON DIOXIDE (test code = CO2) 29.0 mmol/L 21-32 N ANION GAP (test code = GAP) 12.6 10-20 N GLUCOSE (test code = GLU) 127 mg/dL 74-106 H BLOOD UREA NITROGEN (test code = BUN) 74 mg/dL 7-18 H GLOMERULAR FILTRATION RATE (test code = GFR) 12 mL/min >=60 Estimated GFR by using Modified MDRD formula.Chronic kidney disease is defined as either kidney damageor GFR <60 mL/min/1.73 m2 for >3 months. CREATININE (test code = CREAT) 5.00 mg/dL 0.7-1.3 H BUN/CREATININE RATIO (test code = BUN/CREA) 14.9 10-20 N CALCIUM (test code = CA) 8.8 mg/dL 8.5-10.1 N RENAL FUNCTION [id number] 05:20:00* Test Item Value Reference Range Interpretation Comments ALBUMIN (test code = ALB) 1.7 g/dL 3.4-5.0 L PHOSPHORUS (test code = PHOS) 4.2 mg/dL 2.5-4.9 N [id number] 20:46:00* Test Item Value Reference Range Interpretation Comments GLUBED (test code = GLUBED) 141 mg/dL 74-106 H Performed by certified basin operator at [facility]) [id number] 20:46:00* Test Item Value Reference Range Interpretation Comments GLUBED (test code = GLUBED) 170 mg/dL 74-106 H Performed by certified basin operator at [facility]) [id number] 20:37:00* Test Item Value Reference Range Interpretation Comments GLUBED (test code = GLUBED) 231 mg/dL 74-106 H Performed by certified basin operator at [facility]) [id number] 08:23:00* Test Item Value Reference Range Interpretation Comments GLUBED (test code = GLUBED) 136 mg/dL 74-106 H Performed by certified basin operator at [facility]) BASIC METABOLIC [id number] 06:34:00* Test Item Value Reference Range Interpretation Comments SODIUM (test code = NA) 136 mmol/L 136-145 N POTASSIUM (test code = K) 3.8 mmol/L 3.5-5.1 N CHLORIDE (test code = CL) 98.0 mmol/L 98-107 N CARBON DIOXIDE (test code = CO2) 28.0 mmol/L 21-32 N ANION GAP (test code = GAP) 13.8 10-20 N GLUCOSE (test code = GLU) 135 mg/dL 74-106 H BLOOD UREA NITROGEN (test code = BUN) 74 mg/dL 7-18 H GLOMERULAR FILTRATION RATE (test code = GFR) 13 mL/min >=60 Estimated GFR by using Modified MDRD formula.Chronic kidney disease is defined as either kidney damageor GFR <60 mL/min/1.73 m2 for >3 months. CREATININE (test code = CREAT) 4.60 mg/dL 0.7-1.3 H BUN/CREATININE RATIO (test code = BUN/CREA) 15.9 10-20 N CALCIUM (test code = CA) 8.9 mg/dL 8.5-10.1 N CBC W/AUTO [id number] 06:02:00* Test Item Value Reference Range Interpretation Comments WHITE BLOOD CELL (test code = WBC) 16.7 K/mm3 4.5-12.5 H RED BLOOD CELL (test code = RBC) 2.55 mill/mm3 4.0-5.8 L HEMOGLOBIN (test code = HGB) 7.1 gram/dL 13.0-17.5 L HEMATOCRIT (test code = HCT) 22.7 % 42.0-52.0 L MEAN CELL VOLUME (test code = MCV) 89.0 fL 80-98 N MEAN CELL HGB (test code = MCH) 27.8 picogram 27.0-33.0 N MEAN CELL HGB CONCETRATION (test code = MCHC) 31.3 gram/dL 33.0-36. 0 L RED CELL DISTRIBUTION WIDTH (test code = RDW) 13.4 % 11.6-16. 2 N RED CELL DISTRIBUTION WIDTH SD (test code = RDW-SD) 43.6 fL 37 .0-51.0 N PLATELET COUNT (test code = PLT) 317 K/mm3 150-450 RESULT VERIFIED BY REPEAT ANALYSIS MEAN PLATELET VOLUME (test code = MPV) 11.9 fL 6.7-11.0 H NEUTROPHIL % (test code = NT%) 87.5 % 39.0-69.0 H IMMATURE GRANULOCYTE % (test code = IG%) 1.4 % 0.0-5.0 N LYMPHOCYTE % (test code = LY%) 5.5 % 25.0-55.0 L MONOCYTE % (test code = MO%) 5.3 % 0.0-10.0 N EOSINOPHIL % (test code = EO%) 0.0 % 0.0-5.0 N BASOPHIL % (test code = BA%) 0.3 % 0.0-1.0 N NUCLEATED RBC % (test code = NRBC%) 0.0 % 0-0 N NEUTROPHIL # (test code = NT#) 14.57 K/mm3 1.8-7.7 H IMMATURE GRANULOCYTE # (test code = IG#) 0.24 x10 3/uL 0-0.03 H LYMPHOCYTE # (test code = LY#) 0.92 K/mm3 1.0-5.0 L MONOCYTE # (test code = MO#) 0.89 K/mm3 0-0.8 H EOSINOPHIL # (test code = EO#) 0.00 K/mm3 0.0-0.5 N BASOPHIL # (test code = BA#) 0.05 K/mm3 0.0-0.2 N NUCLEATED RBC # (test code = NRBC#) 0.00 K/mm3 0.0-0.1 N [id number] 20:59:00* Test Item Value Reference Range Interpretation Comments GLUBED (test code = GLUBED) 121 mg/dL 74-106 H Performed by certified basin operator at [facility] [id number] 16:04:00* Test Item Value Reference Range Interpretation Comments GLUBED (test code = GLUBED) 116 mg/dL 74-106 H Performed by certified basin operator at [facility]) [id number] 11:19:00* Test Item Value Reference Range Interpretation Comments GLUBED (test code = GLUBED) 213 mg/dL 74-106 H Performed by certified basin operator at [facility]) CBC W/AUTO [id number] 08:57:00* Test Item Value Reference Range Interpretation Comments WHITE BLOOD CELL (test code = WBC) 17.1 K/mm3 4.5-12.5 H RED BLOOD CELL (test code = RBC) 2.63 mill/mm3 4.0-5.8 L HEMOGLOBIN (test code = HGB) 7.3 gram/dL 13.0-17.5 L HEMATOCRIT (test code = HCT) 23.4 % 42.0-52.0 L MEAN CELL VOLUME (test code = MCV) 89.0 fL 80-98 N MEAN CELL HGB (test code = MCH) 27.8 picogram 27.0-33.0 N MEAN CELL HGB CONCETRATION (test code = MCHC) 31.2 gram/dL 33.0-36. 0 L RED CELL DISTRIBUTION WIDTH (test code = RDW) 13.4 % 11.6-16. 2 N RED CELL DISTRIBUTION WIDTH SD (test code = RDW-SD) 43.4 fL 37 .0-51.0 N PLATELET COUNT (test code = PLT) 260 K/mm3 150-450 N MEAN PLATELET VOLUME (test code = MPV) 11.6 fL 6.7-11.0 H NEUTROPHIL % (test code = NT%) 87.8 % 39.0-69.0 H IMMATURE GRANULOCYTE % (test code = IG%) 1.4 % 0.0-5.0 N LYMPHOCYTE % (test code = LY%) 4.7 % 25.0-55.0 L MONOCYTE % (test code = MO%) 5.9 % 0.0-10.0 N EOSINOPHIL % (test code = EO%) 0.0 % 0.0-5.0 N BASOPHIL % (test code = BA%) 0.2 % 0.0-1.0 N NUCLEATED RBC % (test code = NRBC%) 0.0 % 0-0 N NEUTROPHIL # (test code = NT#) 15.03 K/mm3 1.8-7.7 H IMMATURE GRANULOCYTE # (test code = IG#) 0.24 x10 3/uL 0-0.03 H LYMPHOCYTE # (test code = LY#) 0.81 K/mm3 1.0-5.0 L MONOCYTE # (test code = MO#) 1.01 K/mm3 0-0.8 H EOSINOPHIL # (test code = EO#) 0.00 K/mm3 0.0-0.5 N BASOPHIL # (test code = BA#) 0.04 K/mm3 0.0-0.2 N NUCLEATED RBC # (test code = NRBC#) 0.00 K/mm3 0.0-0.1 N MANUAL DIFF REQUIRED (test code = MDIFF) NO BASIC METABOLIC [id number] 08:08:00* Test Item Value Reference Range Interpretation Comments SODIUM (test code = NA) 135 mmol/L 136-145 L POTASSIUM (test code = K) 3.9 mmol/L 3.5-5.1 N CHLORIDE (test code = CL) 98.0 mmol/L 98-107 N CARBON DIOXIDE (test code = CO2) 27.0 mmol/L 21-32 N ANION GAP (test code = GAP) 13.9 10-20 N GLUCOSE (test code = GLU) 210 mg/dL 74-106 H BLOOD UREA NITROGEN (test code = BUN) 71 mg/dL 7-18 H GLOMERULAR FILTRATION RATE (test code = GFR) 13 mL/min >=60 Estimated GFR by using Modified MDRD formula.Chronic kidney disease is defined as either kidney damageor GFR <60 mL/min/1.73 m2 for >3 months. CREATININE (test code = CREAT) 4.60 mg/dL 0.7-1.3 H BUN/CREATININE RATIO (test code = BUN/CREA) 15.4 10-20 N CALCIUM (test code = CA) 8.5 mg/dL 8.5-10.1 N [id number] 08:04:00* Test Item Value Reference Range Interpretation Comments GLUBED (test code = GLUBED) 207 mg/dL 74-106 H Performed by certified basin operator at [facility] [id number] 20:50:00* Test Item Value Reference Range Interpretation Comments GLUBED (test code = GLUBED) 117 mg/dL 74-106 H Performed by certified basin operator at [facility]) [id number] 17:33:00* Test Item Value Reference Range Interpretation Comments GLUBED (test code = GLUBED) 118 mg/dL 74-106 H Performed by certified basin operator at [facility]) [id number] 11:53:00* Test Item Value Reference Range Interpretation Comments GLUBED (test code = GLUBED) 135 mg/dL 74-106 H Performed by certified basin operator at [facility]) [id number] 11:48:00* Test Item Value Reference Range Interpretation Comments GLUBED (test code = GLUBED) 155 mg/dL 74-106 H Performed by certified basin operator at [facility]) - XR CHEST 1 [id number] 08:27:00 FAX: Slava Gustafson MD [phone] [place]: B St: ADM FAX: Jose Francisco Aguilar MD [phone] Name: TORRES MAI [facility] : 1960 Age/S: 58/M [address] [facility] Unit #: [id number] Loc: V[address] [place] [address] Phys: Jose Francisco Cao MD Acct: [id number] Dis Date: Status: ADM IN PHONE #: [phone] Exam Date: 03/02/2019750 FAX #: [phone] Reason: COMPLAINTS OF sob EXAMS: CPT CODE: [id number] XR CHEST 1 V [id number] REASON FOR EXAM: COMPLAINTS OF sob EXAM ORDER DATE: 03/02/2019 5:00 AM Ordering M.Rojas: Jose Francisco Cao MD PROCEDURE: - XR CHEST 1 V COMPARISON: 02/26/2019 FINDINGS: Portable AP frontal view of the chest obtained at 7:51 AM shows diffuse airspace opacities. The heart size is within normal limits. Pulmonary vasculatures are minimally congested. IMPRESSION: Congestive heart failure with small bilateral pleural effusions at 0827 Reported and signed by: Bala Jimenez M.D. CC: Slava Gustafson MD; Jose Francisco Cao M.D. Technologist: Lora Blank(Vick) Trnscrd Date/Time/By: 03/02/2019 (7852) : By: Bernie Orig Print D/T: S: 03/02/2019 (4849) PAGE 1 Signed Report CBC W/AUTO [id number] 06:13:00* Test Item Value Reference Range Interpretation Comments WHITE BLOOD CELL (test code = WBC) 15.1 K/mm3 4.5-12.5 H RED BLOOD CELL (test code = RBC) 2.73 mill/mm3 4.0-5.8 L HEMOGLOBIN (test code = HGB) 7.6 gram/dL 13.0-17.5 L HEMATOCRIT (test code = HCT) 23.6 % 42.0-52.0 L MEAN CELL VOLUME (test code = MCV) 86.4 fL 80-98 N MEAN CELL HGB (test code = MCH) 27.8 picogram 27.0-33.0 N MEAN CELL HGB CONCETRATION (test code = MCHC) 32.2 gram/dL 33.0-36. 0 L RED CELL DISTRIBUTION WIDTH (test code = RDW) 13.2 % 11.6-16. 2 N RED CELL DISTRIBUTION WIDTH SD (test code = RDW-SD) 41.6 fL 37 .0-51.0 N PLATELET COUNT (test code = PLT) 279 K/mm3 150-450 N MEAN PLATELET VOLUME (test code = MPV) 11.4 fL 6.7-11.0 H NEUTROPHIL % (test code = NT%) 86.6 % 39.0-69.0 H IMMATURE GRANULOCYTE % (test code = IG%) 1.3 % 0.0-5.0 N LYMPHOCYTE % (test code = LY%) 5.6 % 25.0-55.0 L MONOCYTE % (test code = MO%) 6.2 % 0.0-10.0 N EOSINOPHIL % (test code = EO%) 0.0 % 0.0-5.0 N BASOPHIL % (test code = BA%) 0.3 % 0.0-1.0 N NUCLEATED RBC % (test code = NRBC%) 0.0 % 0-0 N NEUTROPHIL # (test code = NT#) 13.07 K/mm3 1.8-7.7 H IMMATURE GRANULOCYTE # (test code = IG#) 0.19 x10 3/uL 0-0.03 H LYMPHOCYTE # (test code = LY#) 0.85 K/mm3 1.0-5.0 L MONOCYTE # (test code = MO#) 0.94 K/mm3 0-0.8 H EOSINOPHIL # (test code = EO#) 0.00 K/mm3 0.0-0.5 N BASOPHIL # (test code = BA#) 0.04 K/mm3 0.0-0.2 N NUCLEATED RBC # (test code = NRBC#) 0.00 K/mm3 0.0-0.1 N MANUAL DIFF REQUIRED (test code = MDIFF) NO COMPREHENSIVE METABOLIC [id number] 06:00:00* Test Item Value Reference Range Interpretation Comments SODIUM (test code = NA) 137 mmol/L 136-145 N POTASSIUM (test code = K) 3.9 mmol/L 3.5-5.1 N CHLORIDE (test code = CL) 99.0 mmol/L 98-107 N CARBON DIOXIDE (test code = CO2) 28.0 mmol/L 21-32 N ANION GAP (test code = GAP) 13.9 10-20 N GLUCOSE (test code = GLU) 134 mg/dL 74-106 H BLOOD UREA NITROGEN (test code = BUN) 77 mg/dL 7-18 H GLOMERULAR FILTRATION RATE (test code = GFR) 13 mL/min >=60 Estimated GFR by using Modified MDRD formula.Chronic kidney disease is defined as either kidney damageor GFR <60 mL/min/1.73 m2 for >3 months. CREATININE (test code = CREAT) 4.70 mg/dL 0.7-1.3 H BUN/CREATININE RATIO (test code = BUN/CREA) 16.5 10-20 N TOTAL PROTEIN (test code = PROT) 6.2 gram/dL 6.4-8.2 L ALBUMIN (test code = ALB) 1.7 g/dL 3.4-5.0 L GLOBULIN (test code = GLOB) 4.5 gram/dL 2.7-4.2 H ALBUMIN/GLOBULIN RATIO (test code = A/G) 0.4 0.75-1.50 L CALCIUM (test code = CA) 7.6 mg/dL 8.5-10.1 L BILIRUBIN TOTAL (test code = BILT) 0.40 mg/dL 0.0-1.0 N SGOT/AST (test code = AST) 49 IUnit/L 15-37 H SGPT/ALT (test code = ALT) 51 IUnit/L 12-78 N ALKALINE PHOSPHATASE TOTAL (test code = ALKP) 109 IUnit/L 45-117 N Note change in reference range due to change in reagent. COMPREHENSIVE METABOLIC [id number] 05:52:00* Test Item Value Reference Range Interpretation Comments SODIUM (test code = NA) 137 mmol/L 136-145 N POTASSIUM (test code = K) 3.9 mmol/L 3.5-5.1 N CHLORIDE (test code = CL) 99.0 mmol/L 98-107 N CARBON DIOXIDE (test code = CO2) mmol/L 21-32 ANION GAP (test code = GAP) 10-20 GLUCOSE (test code = GLU) mg/dL 74-106 BLOOD UREA NITROGEN (test code = BUN) mg/dL 7-18 GLOMERULAR FILTRATION RATE (test code = GFR) mL/min >=60 CREATININE (test code = CREAT) mg/dL 0.7-1.3 BUN/CREATININE RATIO (test code = BUN/CREA) 10-20 TOTAL PROTEIN (test code = PROT) gram/dL 6.4-8.2 ALBUMIN (test code = ALB) g/dL 3.4-5.0 GLOBULIN (test code = GLOB) gram/dL 2.7-4.2 ALBUMIN/GLOBULIN RATIO (test code = A/G) 0.75-1.50 CALCIUM (test code = CA) mg/dL 8.5-10.1 BILIRUBIN TOTAL (test code = BILT) mg/dL 0.0-1.0 SGOT/AST (test code = AST) IUnit/L 15-37 SGPT/ALT (test code = ALT) IUnit/L 12-78 ALKALINE PHOSPHATASE TOTAL (test code = ALKP) IUnit/L 45-117 [id number] 20:09:00* Test Item Value Reference Range Interpretation Comments GLUBED (test code = GLUBED) 165 mg/dL 74-106 H Performed by certified basin operator at [facility] ([facility])Notified Nurse~ [id number] 19:06:00* Test Item Value Reference Range Interpretation Comments GLUBED (test code = GLUBED) 161 mg/dL 74-106 H Performed by certified basin operator at [facility] ([facility]) [id number] 19:06:00* Test Item Value Reference Range Interpretation Comments GLUBED (test code = GLUBED) 267 mg/dL 74-106 H Performed by certified basin operator at [facility] ([facility]) ARTERIAL BLOOD [id number] 14:54:00* Test Item Value Reference Range Interpretation Comments ARTERIAL BLOOD GAS PH (test code = PHA) 7.48 7.35-7.45 H ARTERIAL BLOOD GAS PCO2 (test code = PCO2A) 35.1 mm Hg 35-45 N ARTERIAL BLOOD GAS PO2 (test code = PO2A) 105.1 mmHg 80-100 H BICARBONATE TOTAL HCO3 (test code = HCO3) 25.7 mmol/L 23.0-27.0 N BASE EXCESS (test code = KATH) 2.1 mmol/L -3.0-5.0 N ABG O2 SATURATION (test code = SATA) 97.2 % 90.0-98.0 N ABG TYPE (test code = TYPEA) Arterial FIO2 (test code = FIO2A) 50.0 ABG SITE (test code = SITEA) Rt BRACHIAL ARTERY MODIFIED ALLENS (test code = MODALL) Yes CHECK PERFORMED SODIUM (test code = NA/ABG) 129.0 mEq/L 135-148 L POTASSIUM (test code = K/ABG) 3.6 mEq/L 3.5-4.5 N CHLORIDE (test code = CL/ABG) 93 mEq/L 98-106 L GLUCOSE (test code = GLU/ABG) 168 mg/dL 74-99 H HEMATOCRIT (test code = HCT/ABG) 22 % 42-52 L IONIZED CALCIUM (test code = CAIABG) 1.06 mmol/L 1.1-1.37 L TOTAL HGB (test code = THB) 7.6 gram/dL 13.0-17.5 L HGB O2 SAT (test code = HBOSAT) 96.1 % 94.00-98.00 N CARBOXYHEMOGLOBIN (test code = HOHGBT) 0.3 %totalHg 0.5-1.5 LL Results called to and read back by Yousif 14:52 - 03/01/2019; by SAI QUACH METHEMOGLOBIN (test code = METHGB) 0.8 % 0.0-1.50 N O2 CONTENT (test code = O2CT) 10.5 % vol 18.0-22.0 L [id number] 07:57:00* Test Item Value Reference Range Interpretation Comments GLUBED (test code = GLUBED) 135 mg/dL 74-106 H Performed by certified basin operator at [facility]) [id number] 20:28:00* Test Item Value Reference Range Interpretation Comments GLUBED (test code = GLUBED) 191 mg/dL 74-106 H Performed by certified basin operator at [facility]) [id number] 15:58:00* Test Item Value Reference Range Interpretation Comments GLUBED (test code = GLUBED) 161 mg/dL 74-106 H Performed by certified basin operator at [facility]) [id number] 11:26:00* Test Item Value Reference Range Interpretation Comments GLUBED (test code = GLUBED) 235 mg/dL 74-106 H Performed by certified basin operator at [facility]) [id number] 10:41:00* Test Item Value Reference Range Interpretation Comments PREALBUMIN (test code = PREALB) 10.0 mg/dL 16.0-40.0 L [id number] 10:40:00* Test Item Value Reference Range Interpretation Comments PREALBUMIN (test code = PREALB) 10.0 mg/dL 16.0-40.0 L [id number] 07:57:00* Test Item Value Reference Range Interpretation Comments GLUBED (test code = GLUBED) 313 mg/dL 74-106 H Performed by certified basin operator at [facility])Notified Nurse~ COMPREHENSIVE METABOLIC [id number] 07:04:00* Test Item Value Reference Range Interpretation Comments SODIUM (test code = NA) 128 mmol/L 136-145 L POTASSIUM (test code = K) 4.1 mmol/L 3.5-5.1 N CHLORIDE (test code = CL) 90.0 mmol/L 98-107 L CARBON DIOXIDE (test code = CO2) 27.0 mmol/L 21-32 N ANION GAP (test code = GAP) 15.1 10-20 N GLUCOSE (test code = GLU) 289 mg/dL 74-106 H BLOOD UREA NITROGEN (test code = BUN) 72 mg/dL 7-18 H GLOMERULAR FILTRATION RATE (test code = GFR) 13 mL/min >=60 Estimated GFR by using Modified MDRD formula.Chronic kidney disease is defined as either kidney damageor GFR <60 mL/min/1.73 m2 for >3 months. CREATININE (test code = CREAT) 4.70 mg/dL 0.7-1.3 H BUN/CREATININE RATIO (test code = BUN/CREA) 15.5 10-20 N TOTAL PROTEIN (test code = PROT) 7.1 gram/dL 6.4-8.2 N ALBUMIN (test code = ALB) 1.8 g/dL 3.4-5.0 L GLOBULIN (test code = GLOB) 5.3 gram/dL 2.7-4.2 H ALBUMIN/GLOBULIN RATIO (test code = A/G) 0.3 0.75-1.50 L CALCIUM (test code = CA) 7.7 mg/dL 8.5-10.1 L BILIRUBIN TOTAL (test code = BILT) 0.40 mg/dL 0.0-1.0 N SGOT/AST (test code = AST) 34 IUnit/L 15-37 N SGPT/ALT (test code = ALT) 51 IUnit/L 12-78 N ALKALINE PHOSPHATASE TOTAL (test code = ALKP) 116 IUnit/L 45-117 N Note change in reference range due to change in reagent. COMPREHENSIVE METABOLIC [id number] 06:56:00* Test Item Value Reference Range Interpretation Comments SODIUM (test code = NA) 128 mmol/L 136-145 L POTASSIUM (test code = K) 4.1 mmol/L 3.5-5.1 N CHLORIDE (test code = CL) 90.0 mmol/L 98-107 L CARBON DIOXIDE (test code = CO2) mmol/L 21-32 ANION GAP (test code = GAP) 10-20 GLUCOSE (test code = GLU) mg/dL 74-106 BLOOD UREA NITROGEN (test code = BUN) mg/dL 7-18 GLOMERULAR FILTRATION RATE (test code = GFR) mL/min >=60 CREATININE (test code = CREAT) mg/dL 0.7-1.3 BUN/CREATININE RATIO (test code = BUN/CREA) 10-20 TOTAL PROTEIN (test code = PROT) gram/dL 6.4-8.2 ALBUMIN (test code = ALB) g/dL 3.4-5.0 GLOBULIN (test code = GLOB) gram/dL 2.7-4.2 ALBUMIN/GLOBULIN RATIO (test code = A/G) 0.75-1.50 CALCIUM (test code = CA) mg/dL 8.5-10.1 BILIRUBIN TOTAL (test code = BILT) mg/dL 0.0-1.0 SGOT/AST (test code = AST) IUnit/L 15-37 SGPT/ALT (test code = ALT) IUnit/L 12-78 ALKALINE PHOSPHATASE TOTAL (test code = ALKP) IUnit/L 45-117 CBC W/AUTO [id number] 06:38:00* Test Item Value Reference Range Interpretation Comments WHITE BLOOD CELL (test code = WBC) 15.2 K/mm3 4.5-12.5 H RED BLOOD CELL (test code = RBC) 3.01 mill/mm3 4.0-5.8 L HEMOGLOBIN (test code = HGB) 8.3 gram/dL 13.0-17.5 L HEMATOCRIT (test code = HCT) 25.9 % 42.0-52.0 L MEAN CELL VOLUME (test code = MCV) 86.0 fL 80-98 N MEAN CELL HGB (test code = MCH) 27.6 picogram 27.0-33.0 N MEAN CELL HGB CONCETRATION (test code = MCHC) 32.0 gram/dL 33.0-36. 0 L RED CELL DISTRIBUTION WIDTH (test code = RDW) 12.9 % 11.6-16. 2 N RED CELL DISTRIBUTION WIDTH SD (test code = RDW-SD) 40.4 fL 37 .0-51.0 N PLATELET COUNT (test code = PLT) 291 K/mm3 150-450 N MEAN PLATELET VOLUME (test code = MPV) 11.6 fL 6.7-11.0 H NEUTROPHIL % (test code = NT%) 87.0 % 39.0-69.0 H IMMATURE GRANULOCYTE % (test code = IG%) 1.9 % 0.0-5.0 N LYMPHOCYTE % (test code = LY%) 5.7 % 25.0-55.0 L MONOCYTE % (test code = MO%) 5.2 % 0.0-10.0 N EOSINOPHIL % (test code = EO%) 0.0 % 0.0-5.0 N BASOPHIL % (test code = BA%) 0.2 % 0.0-1.0 N NUCLEATED RBC % (test code = NRBC%) 0.0 % 0-0 N NEUTROPHIL # (test code = NT#) 13.20 K/mm3 1.8-7.7 H IMMATURE GRANULOCYTE # (test code = IG#) 0.29 x10 3/uL 0-0.03 H LYMPHOCYTE # (test code = LY#) 0.87 K/mm3 1.0-5.0 L MONOCYTE # (test code = MO#) 0.79 K/mm3 0-0.8 N EOSINOPHIL # (test code = EO#) 0.00 K/mm3 0.0-0.5 N BASOPHIL # (test code = BA#) 0.03 K/mm3 0.0-0.2 N NUCLEATED RBC # (test code = NRBC#) 0.00 K/mm3 0.0-0.1 N MANUAL DIFF REQUIRED (test code = MDIFF) NO [id number] 05:15:00* Test Item Value Reference Range Interpretation Comments GLUBED (test code = GLUBED) 293 mg/dL 74-106 H Performed by certified basin operator at [facility]) [id number] 01:20:00* Test Item Value Reference Range Interpretation Comments GLUBED (test code = GLUBED) 276 mg/dL 74-106 H Performed by certified basin operator at [facility]) UR CREATININE CLEARANCE [id number] 20:02:00* Test Item Value Reference Range Interpretation Comments CREATININE CLEARANCE RESULT (test code = CREATCLR) 5 mL/min 100 -120 L CREATININE (test code = CREAT) 3.70 mg/dL 0.7-1.3 H UR CREATININE RANDOM (test code = CREATU) 135.0 mg/dL 30-125 H UR VOLUME 24HR (test code = VOL) 200 mL/24hrs [id number] CREATININE CLEARANCE [id number] 20:01:00* Test Item Value Reference Range Interpretation Comments CREATININE CLEARANCE RESULT (test code = CREATCLR) mL/min 100 -120 CREATININE (test code = CREAT) mg/dL 0.7-1.3 UR CREATININE RANDOM (test code = CREATU) 135.0 mg/dL 30-125 H UR VOLUME 24HR (test code = VOL) mL/24hrs [id number] [id number] 16:04:00* Test Item Value Reference Range Interpretation Comments GLUBED (test code = GLUBED) 301 mg/dL 74-106 H Performed by certified basin operator at [facility])Notified Nurse~ PLEURAL [id number] 15:37:00 RUN DATE: 02/27/19 [facility] PAGE 1 RUN TIME: 1537 Specimen Inqui ry RUN USER: INTERFACE PATIENT: TORRES MAI ACCT #: [id number] [facility] #: [id number] AGE/SX: 58/M ROOM: [facility] RE02/19/19[facility] DR: Slava Gustafson MD : 56 BED: A DIS: STATUS: ADM IN TLOC: SPEC #: [id number] RECD: 02/26/19 STATUS: VIANEY REQ #: [id number] ANNETTE: 02/26/19 [facility] DR: Bala Jimenez MD ENTERED: 02/26/19 SP TYPE: PLEURAL FL OTHR DR: Pattie Lay zulema or Family Physician Franklin Morse DPM, Tahir MD L am,Jaqueline Salazar ,Eric Veloz,Andrew Perkins MD, MDORDERED: GROSS COPIES TO: No Primary or Family Physician Franklin Morse DPM [address] [place] [address] Teddy Lim MD [address] [place] [address] Jaqueline Roberts MD [address] [place] [phone] Kathy Jimenez MD [address] [place] [address] Tristan Salazar MD [address] [facility] [address] [place] [address] Jasyon Veloz MD [address] [place] [address] CONTINUED ON NEXT PAGE RUN DATE: 02/27/19 [facility] PAGE 2 RUN TIME: 1537 Specimen Inquiry RUN USER: INTERFACE - SPEC #: [id number] PATIENT: TORRES MAI #[id number] (Continued) COPIES TO: (Continued) Azul Taylor MD [address] [facility] [address] [place], [place] [id number] PROCEDU RES: GROSS (02/27/19-1517) TISSUES: PLEURAL FLUID, NOS - 7 ML YELLOW CLINICAL HISTORY COLLECTION DATE: 02/26/19 PLEURAL EFFUSIONS FINAL DIAGNOSIS Right pleural fluid for cytology, thoracentesis: M ESOTHELIAL CELLS, MACROPHAGES, AND WHITE BLOOD CELLS NEGATIVE FOR MALIGNA NCY DMW/joyce D [address], [address] MACROSCOPIC The specim en consists of 7 mL of yellow fluid to be concentrated and processed for cytol ogic evaluation. A cell block is prepared. GROSS PERFORMED AT [facility] [address] [place] [address] (P)[phone] MICROSCOPIC All of the s tains, including any controls performed, stain appropriately. MICROSCOPI C PERFORMED AT [facility] [address] [place] [address] (P)[phone] CONTINUED ON NEXT PAGE RUN DATE: 02/27/19 [facility] PAGE 3 RUN TIME: 1537 Specimen Inquiry RUN USER: INTERFACE SPEC #: [id number] PATIENT: TORRES MAI #[id number] (Continued)----- ------- PERFORMING SITE Diagnosis performed at: [facility] [address] [place] [address] Signed RAMOS PERDUE ON FILE Adriana Marin MD 02/27/19 1537 --------- --- EN D OF REPORT PLEURAL FLD CELL [id number] 13:37:00* Test Item Value Reference Range Interpretation Comments FLUID WBC AUTO (test code = WBCFLA) 49 cells/uL FLUID RBC AUTO (test code = RBCFLA) 1000 cells/uL FLUID TOTAL CELLS (test code = TCFL) 55 cells/uL >0 Fluid WBC RBC PMN% MN%Type cells/uL cells/uL CSF (0-5) n/a (2+/-4) (90+/-20)Peritoneal n/a n/a n/a n/aPleural n/a n/a n/a n/aSynovial <200 n/a <25% <75% CSF (0-30) n/a (4+/-4) (90+/-20) PLEURAL FLD COLOR (test code = COLPL) YELLOW PLEURAL FLD APPEARANCE (test code = APPPL) CLEAR PLEURAL FLD POLY (test code = POLYPL) 68.0 % PLEURAL FLD LYMPHOCYTE (test code = LYMPHPL) 10.0 % PLEURAL FLD PLASMA CELL (test code = PLAPL) 1.0 % PLEURAL FLD MACROPHAGE (test code = MACPL) 21.0 % TOTAL CELLS COUNTED ON DIFF (test code = TOTCELLFL) 100 cells REVIEWED BY (test code = REVIEW) MOISÉS UQIROSOTHY PATHOLOGIST SPECIMEN COMMENTS: RIGHT PLEURAL FLUIDPLEURAL FLD [id number] 13:37:00* Test Item Value Reference Range Interpretation Comments PLEURAL FLD PH (test code = PHPL) 7.0 SPECIMEN COMMENTS: RIGHT PLEURAL FLUIDPLEURAL FLD [id number] 13:37:00* Test Item Value Reference Range Interpretation Comments PLEURAL FLD GLUCOSE (test code = GLUPL) 137 MG/DL SPECIMEN COMMENTS: RIGHT PLEURAL FLUIDPLEURAL FLD TOTAL [id number] 13:37:00* Test Item Value Reference Range Interpretation Comments PLEURAL FLD TOTAL PROTEIN (test code = PROTPL) 1.8 gram/dL SPECIMEN COMMENTS: RIGHT PLEURAL FLUIDPLEURAL FLD [id number] 13:37:00* Test Item Value Reference Range Interpretation Comments PLEURAL FLD LDH (test code = LDHPL) 87 IUnit/L SPECIMEN COMMENTS: RIGHT PLEURAL FLUIDPLEURAL FLD [id number] 13:37:00 * Test Item Value Reference Range Interpretation Comments PLEURAL FLD CHOLESTEROL (test code = CHOLPL) < 50 MG/DL SPECIMEN COMMENTS: RIGHT PLEURAL FLUIDPLEURAL FLD [id number] 13:37:00* Test Item Value Reference Range Interpretation Comments PLEURAL FLD TRIGLYCERIDE (test code = TRIGPL) 10 MG/DL SPECIMEN COMMENTS: RIGHT PLEURAL [id number] 11:20:00* Test Item Value Reference Range Interpretation Comments GLUBED (test code = GLUBED) 256 mg/dL 74-106 H Performed by certified basin operator at [facility]) COMPREHENSIVE METABOLIC [id number] 10:32:00* Test Item Value Reference Range Interpretation Comments SODIUM (test code = NA) 132 mmol/L 136-145 L POTASSIUM (test code = K) 4.0 mmol/L 3.5-5.1 N CHLORIDE (test code = CL) 93.0 mmol/L 98-107 L CARBON DIOXIDE (test code = CO2) 26.0 mmol/L 21-32 N ANION GAP (test code = GAP) 17.0 10-20 N GLUCOSE (test code = GLU) 261 mg/dL 74-106 H BLOOD UREA NITROGEN (test code = BUN) 72 mg/dL 7-18 H GLOMERULAR FILTRATION RATE (test code = GFR) 15 mL/min >=60 Estimated GFR by using Modified MDRD formula.Chronic kidney disease is defined as either kidney damageor GFR <60 mL/min/1.73 m2 for >3 months. CREATININE (test code = CREAT) 4.10 mg/dL 0.7-1.3 H BUN/CREATININE RATIO (test code = BUN/CREA) 17.4 10-20 N TOTAL PROTEIN (test code = PROT) 7.3 gram/dL 6.4-8.2 N ALBUMIN (test code = ALB) 1.9 g/dL 3.4-5.0 L GLOBULIN (test code = GLOB) 5.4 gram/dL 2.7-4.2 H ALBUMIN/GLOBULIN RATIO (test code = A/G) 0.4 0.75-1.50 L CALCIUM (test code = CA) 7.9 mg/dL 8.5-10.1 L BILIRUBIN TOTAL (test code = BILT) 0.40 mg/dL 0.0-1.0 N SGOT/AST (test code = AST) 35 IUnit/L 15-37 N SGPT/ALT (test code = ALT) 56 IUnit/L 12-78 N ALKALINE PHOSPHATASE TOTAL (test code = ALKP) 120 IUnit/L 45-117 H Note change in reference range due to change in reagent. COMPREHENSIVE METABOLIC [id number] 10:22:00* Test Item Value Reference Range Interpretation Comments SODIUM (test code = NA) 132 mmol/L 136-145 L POTASSIUM (test code = K) 4.0 mmol/L 3.5-5.1 N CHLORIDE (test code = CL) 93.0 mmol/L 98-107 L CARBON DIOXIDE (test code = CO2) mmol/L 21-32 ANION GAP (test code = GAP) 10-20 GLUCOSE (test code = GLU) mg/dL 74-106 BLOOD UREA NITROGEN (test code = BUN) mg/dL 7-18 GLOMERULAR FILTRATION RATE (test code = GFR) mL/min >=60 CREATININE (test code = CREAT) mg/dL 0.7-1.3 BUN/CREATININE RATIO (test code = BUN/CREA) 10-20 TOTAL PROTEIN (test code = PROT) gram/dL 6.4-8.2 ALBUMIN (test code = ALB) g/dL 3.4-5.0 GLOBULIN (test code = GLOB) gram/dL 2.7-4.2 ALBUMIN/GLOBULIN RATIO (test code = A/G) 0.75-1.50 CALCIUM (test code = CA) mg/dL 8.5-10.1 BILIRUBIN TOTAL (test code = BILT) mg/dL 0.0-1.0 SGOT/AST (test code = AST) IUnit/L 15-37 SGPT/ALT (test code = ALT) IUnit/L 12-78 ALKALINE PHOSPHATASE TOTAL (test code = ALKP) IUnit/L 45-117 CBC W/AUTO [id number] 10:07:00* Test Item Value Reference Range Interpretation Comments WHITE BLOOD CELL (test code = WBC) 17.0 K/mm3 4.5-12.5 H RED BLOOD CELL (test code = RBC) 3.00 mill/mm3 4.0-5.8 L HEMOGLOBIN (test code = HGB) 8.3 gram/dL 13.0-17.5 L HEMATOCRIT (test code = HCT) 25.8 % 42.0-52.0 L MEAN CELL VOLUME (test code = MCV) 86.0 fL 80-98 N MEAN CELL HGB (test code = MCH) 27.7 picogram 27.0-33.0 N MEAN CELL HGB CONCETRATION (test code = MCHC) 32.2 gram/dL 33.0-36. 0 L RED CELL DISTRIBUTION WIDTH (test code = RDW) 13.1 % 11.6-16. 2 N RED CELL DISTRIBUTION WIDTH SD (test code = RDW-SD) 41.1 fL 37 .0-51.0 N PLATELET COUNT (test code = PLT) 327 K/mm3 150-450 MEAN PLATELET VOLUME (test code = MPV) 11.2 fL 6.7-11.0 H NEUTROPHIL % (test code = NT%) 86.6 % 39.0-69.0 H IMMATURE GRANULOCYTE % (test code = IG%) 1.6 % 0.0-5.0 N LYMPHOCYTE % (test code = LY%) 6.1 % 25.0-55.0 L MONOCYTE % (test code = MO%) 5.5 % 0.0-10.0 N EOSINOPHIL % (test code = EO%) 0.0 % 0.0-5.0 N BASOPHIL % (test code = BA%) 0.2 % 0.0-1.0 N NUCLEATED RBC % (test code = NRBC%) 0.0 % 0-0 N NEUTROPHIL # (test code = NT#) 14.74 K/mm3 1.8-7.7 H IMMATURE GRANULOCYTE # (test code = IG#) 0.28 x10 3/uL 0-0.03 H LYMPHOCYTE # (test code = LY#) 1.04 K/mm3 1.0-5.0 N MONOCYTE # (test code = MO#) 0.94 K/mm3 0-0.8 H EOSINOPHIL # (test code = EO#) 0.00 K/mm3 0.0-0.5 N BASOPHIL # (test code = BA#) 0.04 K/mm3 0.0-0.2 N NUCLEATED RBC # (test code = NRBC#) 0.00 K/mm3 0.0-0.1 N [id number] 07:27:00* Test Item Value Reference Range Interpretation Comments GLUBED (test code = GLUBED) 201 mg/dL 74-106 H Performed by certified basin operator at [facility] [id number] 06:19:00* Test Item Value Reference Range Interpretation Comments GLUBED (test code = GLUBED) 233 mg/dL 74-106 H Performed by certified basin operator at [facility]) [id number] 20:50:00* Test Item Value Reference Range Interpretation Comments GLUBED (test code = GLUBED) 271 mg/dL 74-106 H Performed by certified basin operator at [facility]) [id number] 20:21:00* Test Item Value Reference Range Interpretation Comments GLUBED (test code = GLUBED) 143 mg/dL 74-106 H Performed by certified basin operator at [facility]) FINGER/TOES AMP.,[id number] 15:11:00 RUN DATE: 02/26/19 [facility] PAGE 1 RUN TIME: 1511 Specimen Inqui ry RUN USER: INTERFACE PATIENT: TORRES MAI ACCT #: [id number] [facility] U #: [id number] AGE/SX: 58/M ROOM: [facility] RE02/19/19[facility] DR: Slava Gustafson MD : 56 BED: A DIS: STATUS: ADM IN TLOC: SPEC #: [id number] RECD: 02/22/19 STATUS: VIANEY [place] #: [id number] ANNETTE: 02/21/[address]: Franklin Morse ENTERED: 02/22/19 SP TYPE: FINGER/TOE OTHR DR: Franklin Morse DPM Teddy Lim MD, David N MD Shebi b, Zaher MD Uyeda, Jes se Kitanishi MD Vasq uez Donado, Andres F MDORDERED: CHAY COPIES TO: Franklin Morse DPM [address] [place] [address] Teddy Lim MD [address] [place] [address] Jaqueline Roberts MD [address] [place] [phone] Eric Salazar MD [address] [facility] [address] [place] [address] Jayson Veloz MD [address] [place] [address] Andrew Taylor MD [address] [place] [address] PROCEDURES: CHAY ( 02/26/19-1353) TISSUES: TOE, NOS - 5th RIGHT CONTINUED ON NEXT PAGE RUN DATE: 02/26/19 [facility] PAGE 2 RUN TIME: 1511 Specimen Inquiry RUN USER: INTERFACE SPEC #: [id number] PATIENT: TORRES MAI #[id number] (Continued)- FINAL DIAGNOSIS Right lower extremity, fifth toe, amputa tion: GANGRENOUS NECROSIS OF SKIN AND SUBCUTANEOUS TISSUE WITH E PITHELIAL HYPERPLASIA AND AREA OF ULCERATION ASSOCIATED WITH FIBRINOPU RULENT EXUDATE MARKED ACUTE OSTEOMYELITIS NEGATIVE FOR MALIGNANCY RRB/sm A [address], [address] MACROSCOPIC The specimen is rec eived in [...] the margin is ink ed in black. [employer]ing sections are submitted after decalcification as f romario: 1A- labor representative soft tissue margin and adjacent ulcer; 1B- represent ative portion of gangrenous lesion including underlying bone; 1C- representati ve bone and cartilage at margin; 1D- perpendicular section through distal tip including bone. GROSS PERFORMED AT [facility] [address] [facility] [place] [address] ([phone] MICROSCOPIC All of the stains, including any controls perf ormed, stain appropriately. MICROSCOPIC PERFORMED AT [facility] [address] [place] [address] ( P)[phone] CONTINUED ON NEXT PAGE RUN DATE: 02/26/19 [facility] PAGE 3 RUN TIME: 1510 Specimen Inqui ry RUN USER: INTERFACE SPEC #: [id number] PATIENT: TORRES MAI #[id number] (Continued) PERFORMING SIT E Diagnosis performed at: [facility] [address] [place], [place] [address] Signed SIGNATURE ON FILE Don Mcintosh MD 02/26/19 1511 END OF REPORT PLEURAL FLD CELL [id number] 13:41:00* Test Item Value Reference Range Interpretation Comments FLUID WBC AUTO (test code = WBCFLA) 49 cells/uL FLUID RBC AUTO (test code = RBCFLA) 1000 cells/uL FLUID TOTAL CELLS (test code = TCFL) 55 cells/uL >0 Fluid WBC RBC PMN% MN%Type cells/uL cells/uL CSF (0-5) n/a (2+/-4) (90+/-20)Peritoneal n/a n/a n/a n/aPleural n/a n/a n/a n/aSynovial <200 n/a <25% <75% CSF (0-30) n/a (4+/-4) (90+/-20) PLEURAL FLD COLOR (test code = COLPL) YELLOW PLEURAL FLD APPEARANCE (test code = APPPL) CLEAR PLEURAL FLD POLY (test code = POLYPL) 68.0 % PLEURAL FLD LYMPHOCYTE (test code = LYMPHPL) 10.0 % PLEURAL FLD PLASMA CELL (test code = PLAPL) 1.0 % PLEURAL FLD MACROPHAGE (test code = MACPL) 21.0 % TOTAL CELLS COUNTED ON DIFF (test code = TOTCELLFL) 100 cells REVIEWED BY (test code = REVIEW) PATHOLOGIST SPECIMEN COMMENTS: RIGHT PLEURAL FLUIDPLEURAL FLD [id number] 13:41:00* Test Item Value Reference Range Interpretation Comments PLEURAL FLD PH (test code = PHPL) 7.0 SPECIMEN COMMENTS: RIGHT PLEURAL FLUIDPLEURAL FLD [id number] 13:41:00* Test Item Value Reference Range Interpretation Comments PLEURAL FLD GLUCOSE (test code = GLUPL) 137 MG/DL SPECIMEN COMMENTS: RIGHT PLEURAL FLUIDPLEURAL FLD TOTAL [id number] 13:41:00* Test Item Value Reference Range Interpretation Comments PLEURAL FLD TOTAL PROTEIN (test code = PROTPL) 1.8 gram/dL SPECIMEN COMMENTS: RIGHT PLEURAL FLUIDPLEURAL FLD [id number] 13:41:00* Test Item Value Reference Range Interpretation Comments PLEURAL FLD LDH (test code = LDHPL) 87 IUnit/L SPECIMEN COMMENTS: RIGHT PLEURAL FLUIDPLEURAL FLD [id number] 13:41:00 * Test Item Value Reference Range Interpretation Comments PLEURAL FLD CHOLESTEROL (test code = CHOLPL) < 50 MG/DL SPECIMEN COMMENTS: RIGHT PLEURAL FLUIDPLEURAL FLD [id number] 13:41:00* Test Item Value Reference Range Interpretation Comments PLEURAL FLD TRIGLYCERIDE (test code = TRIGPL) 10 MG/DL SPECIMEN COMMENTS: RIGHT PLEURAL FLUIDPLEURAL FLD CELL [id number] 10:57:00* Test Item Value Reference Range Interpretation Comments FLUID WBC AUTO (test code = WBCFLA) 49 cells/uL FLUID RBC AUTO (test code = RBCFLA) 1000 cells/uL FLUID TOTAL CELLS (test code = TCFL) 55 cells/uL >0 Fluid WBC RBC PMN% MN%Type cells/uL cells/uL CSF (0-5) n/a (2+/-4) (90+/-20)Peritoneal n/a n/a n/a n/aPleural n/a n/a n/a n/aSynovial <200 n/a <25% <75% CSF (0-30) n/a (4+/-4) (90+/-20) PLEURAL FLD COLOR (test code = COLPL) YELLOW PLEURAL FLD APPEARANCE (test code = APPPL) CLEAR TOTAL CELLS COUNTED ON DIFF (test code = TOTCELLFL) cells REVIEWED BY (test code = REVIEW) PATHOLOGIST SPECIMEN COMMENTS: RIGHT PLEURAL FLUIDPLEURAL FLD [id number] 10:57:00* Test Item Value Reference Range Interpretation Comments PLEURAL FLD PH (test code = PHPL) 7.0 SPECIMEN COMMENTS: RIGHT PLEURAL FLUIDPLEURAL FLD [id number] 10:57:00* Test Item Value Reference Range Interpretation Comments PLEURAL FLD GLUCOSE (test code = GLUPL) 137 MG/DL SPECIMEN COMMENTS: RIGHT PLEURAL FLUIDPLEURAL FLD TOTAL [id number] 10:57:00* Test Item Value Reference Range Interpretation Comments PLEURAL FLD TOTAL PROTEIN (test code = PROTPL) 1.8 gram/dL SPECIMEN COMMENTS: RIGHT PLEURAL FLUIDPLEURAL FLD [id number] 10:57:00* Test Item Value Reference Range Interpretation Comments PLEURAL FLD LDH (test code = LDHPL) 87 IUnit/L SPECIMEN COMMENTS: RIGHT PLEURAL FLUIDPLEURAL FLD [id number] 10:57:00 * Test Item Value Reference Range Interpretation Comments PLEURAL FLD CHOLESTEROL (test code = CHOLPL) < 50 MG/DL SPECIMEN COMMENTS: RIGHT PLEURAL FLUIDPLEURAL FLD [id number] 10:57:00* Test Item Value Reference Range Interpretation Comments PLEURAL FLD TRIGLYCERIDE (test code = TRIGPL) 10 MG/DL SPECIMEN COMMENTS: RIGHT PLEURAL FLUIDPLEURAL FLD CELL [id number] 10:40:00* Test Item Value Reference Range Interpretation Comments FLUID WBC AUTO (test code = WBCFLA) 49 cells/uL FLUID RBC AUTO (test code = RBCFLA) 1000 cells/uL FLUID TOTAL CELLS (test code = TCFL) 55 cells/uL >0 Fluid WBC RBC PMN% MN%Type cells/uL cells/uL CSF (0-5) n/a (2+/-4) (90+/-20)Peritoneal n/a n/a n/a n/aPleural n/a n/a n/a n/aSynovial <200 n/a <25% <75% CSF (0-30) n/a (4+/-4) (90+/-20) PLEURAL FLD COLOR (test code = COLPL) YELLOW PLEURAL FLD APPEARANCE (test code = APPPL) CLEAR TOTAL CELLS COUNTED ON DIFF (test code = TOTCELLFL) cells REVIEWED BY (test code = REVIEW) PATHOLOGIST SPECIMEN COMMENTS: RIGHT PLEURAL FLUIDPLEURAL FLD [id number] 10:40:00* Test Item Value Reference Range Interpretation Comments PLEURAL FLD PH (test code = PHPL) 7.0 SPECIMEN COMMENTS: RIGHT PLEURAL FLUIDPLEURAL FLD [id number] 10:40:00* Test Item Value Reference Range Interpretation Comments PLEURAL FLD GLUCOSE (test code = GLUPL) MG/DL SPECIMEN COMMENTS: RIGHT PLEURAL FLUIDPLEURAL FLD TOTAL [id number] 10:40:00* Test Item Value Reference Range Interpretation Comments PLEURAL FLD TOTAL PROTEIN (test code = PROTPL) gram/dL SPECIMEN COMMENTS: RIGHT PLEURAL FLUIDPLEURAL FLD [id number] 10:40:00* Test Item Value Reference Range Interpretation Comments PLEURAL FLD LDH (test code = LDHPL) IUnit/L SPECIMEN COMMENTS: RIGHT PLEURAL FLUIDPLEURAL FLD [id number] 10:40:00 * Test Item Value Reference Range Interpretation Comments PLEURAL FLD CHOLESTEROL (test code = CHOLPL) MG/DL SPECIMEN COMMENTS: RIGHT PLEURAL FLUIDPLEURAL FLD [id number] 10:40:00* Test Item Value Reference Range Interpretation Comments PLEURAL FLD TRIGLYCERIDE (test code = TRIGPL) MG/DL SPECIMEN COMMENTS: RIGHT PLEURAL FLUIDPLEURAL FLD CELL [id number] 10:38:00* Test Item Value Reference Range Interpretation Comments FLUID WBC AUTO (test code = WBCFLA) 49 cells/uL FLUID RBC AUTO (test code = RBCFLA) 1000 cells/uL FLUID TOTAL CELLS (test code = TCFL) 55 cells/uL >0 Fluid WBC RBC PMN% MN%Type cells/uL cells/uL CSF (0-5) n/a (2+/-4) (90+/-20)Peritoneal n/a n/a n/a n/aPleural n/a n/a n/a n/aSynovial <200 n/a <25% <75% CSF (0-30) n/a (4+/-4) (90+/-20) PLEURAL FLD COLOR (test code = COLPL) PLEURAL FLD APPEARANCE (test code = APPPL) PLEURAL FLD WBC (test code = WBCPL) per uL 0-1000 PLEURAL FLD RBC (test code = RBCPL) per uL 0-50 TOTAL CELLS COUNTED ON DIFF (test code = TOTCELLFL) cells REVIEWED BY (test code = REVIEW) PATHOLOGIST SPECIMEN COMMENTS: RIGHT PLEURAL FLUIDPLEURAL FLD [id number] 10:38:00* Test Item Value Reference Range Interpretation Comments PLEURAL FLD PH (test code = PHPL) SPECIMEN COMMENTS: RIGHT PLEURAL FLUIDPLEURAL FLD [id number] 10:38:00* Test Item Value Reference Range Interpretation Comments PLEURAL FLD GLUCOSE (test code = GLUPL) MG/DL SPECIMEN COMMENTS: RIGHT PLEURAL FLUIDPLEURAL FLD TOTAL [id number] 10:38:00* Test Item Value Reference Range Interpretation Comments PLEURAL FLD TOTAL PROTEIN (test code = PROTPL) gram/dL SPECIMEN COMMENTS: RIGHT PLEURAL FLUIDPLEURAL FLD [id number] 10:38:00* Test Item Value Reference Range Interpretation Comments PLEURAL FLD LDH (test code = LDHPL) IUnit/L SPECIMEN COMMENTS: RIGHT PLEURAL FLUIDPLEURAL FLD [id number] 10:38:00 * Test Item Value Reference Range Interpretation Comments PLEURAL FLD CHOLESTEROL (test code = CHOLPL) MG/DL SPECIMEN COMMENTS: RIGHT PLEURAL FLUIDPLEURAL FLD [id number] 10:38:00* Test Item Value Reference Range Interpretation Comments PLEURAL FLD TRIGLYCERIDE (test code = TRIGPL) MG/DL SPECIMEN COMMENTS: RIGHT PLEURAL FLUID- SP THORACENTESIS [id number] 10:34:00 Name: TORRES MAI [facility] : 1960 Age/S: 58 / M [address] Unit #: [id number] Loc: [place] [address] Phys: Slava Gustafson MD Acct: [id number] Dis Date: Status: ADM IN PHONE #: [phone] Exam Date: 02/26/2019 09 FAX #: [phone] Reason: / EXAMS: CPT CODE: [id number] SP THORACENTESIS W/IMAG 82335 Fluoro Time: DAP (Gy m2): Air Kerma (mGy): REASON FOR EXAM: Small bilateral pleural effusions Exam order date: 02/26/2019 9:13 AM PROCEDURE: Ultrasound guided right thoracentesis Attending MYvonne: Slava Gustafson MD CPT code: 23164, 72801 FINDINGS: Prior to the procedure, informed consent [...] CC: Slava Gustafson MD Technologist: JAQUELINE LING [facility] Trnscb Date/Time: 02/26/2019 (1034) [email or web address] Orig Print D/T: S: 02/26/2019 (1037) PAGE 1 Signed Report - XR CHEST 1 [id number] 09:42:00 FAX: Slava Gustafson MD [phone] [place]: St: ADM Name: TORRES CAN [facility] : [birth year] Age/S: 58/M [address] [facility] Unit #: [id number] Loc: [place] [place] [address] Phys: Bala Jimenez MD Acct: [id number] Dis Date: Status: ADM IN PHONE #: [phone] Exam Date: 02/26/2019 0939 FAX #: [phone] Reason: S/P RIGHT THORACENTESIS EXAMS: CPT CODE: [id number] XR CHEST 1 V 36518 REASON FOR EXAM: S/P RIGHT THORACENTESIS EXAM [...] Jimenez M.D. CC: Slava Gustafson MD Technologist: STU HENDRICKSON, RT(R) Trnscrd Date/Time/By: 02/26/2019 (0942) : By: Mitch CRUZVTL Orig Print D/T: S: 02/26/2019 (1759) FABIOLA MUELLER 1 Signed Report GLUBED 2019-02-26 08:29:00* Test Item Value Reference Range Interpretation Comments GLUBED (test code = GLUBED) 134 mg/dL 74-106 H Performed by certified basin operator at [facility] [id number] 08:08:00* Test Item Value Reference Range Interpretation Comments GLUBED (test code = GLUBED) 89 mg/dL 74-106 N Performed by certified basin operator at [facility]) BASIC METABOLIC [id number] 05:21:00* Test Item Value Reference Range Interpretation Comments SODIUM (test code = NA) 132 mmol/L 136-145 L POTASSIUM (test code = K) 3.8 mmol/L 3.5-5.1 N CHLORIDE (test code = CL) 94.0 mmol/L 98-107 L CARBON DIOXIDE (test code = CO2) 30.0 mmol/L 21-32 N ANION GAP (test code = GAP) 11.8 10-20 N GLUCOSE (test code = GLU) 171 mg/dL 74-106 H BLOOD UREA NITROGEN (test code = BUN) 61 mg/dL 7-18 H GLOMERULAR FILTRATION RATE (test code = GFR) 17 mL/min >=60 Estimated GFR by using Modified MDRD formula.Chronic kidney disease is defined as either kidney damageor GFR <60 mL/min/1.73 m2 for >3 months. CREATININE (test code = CREAT) 3.70 mg/dL 0.7-1.3 H BUN/CREATININE RATIO (test code = BUN/CREA) 16.7 10-20 N CALCIUM (test code = CA) 7.5 mg/dL 8.5-10.1 L B-TYPE NATRIURETIC [id number] 05:01:00* Test Item Value Reference Range Interpretation Comments B-TYPE NATRIURETIC PEPTIDE (test code = BNP) 1045.34 pgram/mL 0-100 H CBC W/AUTO [id number] 04:56:00* Test Item Value Reference Range Interpretation Comments WHITE BLOOD CELL (test code = WBC) 16.8 K/mm3 4.5-12.5 H RED BLOOD CELL (test code = RBC) 3.13 mill/mm3 4.0-5.8 L HEMOGLOBIN (test code = HGB) 8.6 gram/dL 13.0-17.5 L HEMATOCRIT (test code = HCT) 27.0 % 42.0-52.0 L MEAN CELL VOLUME (test code = MCV) 86.3 fL 80-98 N MEAN CELL HGB (test code = MCH) 27.5 picogram 27.0-33.0 N MEAN CELL HGB CONCETRATION (test code = MCHC) 31.9 gram/dL 33.0-36. 0 L RED CELL DISTRIBUTION WIDTH (test code = RDW) 12.9 % 11.6-16. 2 N RED CELL DISTRIBUTION WIDTH SD (test code = RDW-SD) 40.5 fL 37 .0-51.0 N PLATELET COUNT (test code = PLT) 250 K/mm3 150-450 RESULT VERIFIED BY REPEAT ANALYSIS MEAN PLATELET VOLUME (test code = MPV) 10.9 fL 6.7-11.0 N NEUTROPHIL % (test code = NT%) 85.9 % 39.0-69.0 H IMMATURE GRANULOCYTE % (test code = IG%) 1.9 % 0.0-5.0 N LYMPHOCYTE % (test code = LY%) 5.6 % 25.0-55.0 L MONOCYTE % (test code = MO%) 6.3 % 0.0-10.0 N EOSINOPHIL % (test code = EO%) 0.0 % 0.0-5.0 N BASOPHIL % (test code = BA%) 0.3 % 0.0-1.0 N NUCLEATED RBC % (test code = NRBC%) 0.0 % 0-0 N NEUTROPHIL # (test code = NT#) 14.40 K/mm3 1.8-7.7 H IMMATURE GRANULOCYTE # (test code = IG#) 0.32 x10 3/uL 0-0.03 H LYMPHOCYTE # (test code = LY#) 0.94 K/mm3 1.0-5.0 L MONOCYTE # (test code = MO#) 1.06 K/mm3 0-0.8 H EOSINOPHIL # (test code = EO#) 0.00 K/mm3 0.0-0.5 N BASOPHIL # (test code = BA#) 0.05 K/mm3 0.0-0.2 N NUCLEATED RBC # (test code = NRBC#) 0.00 K/mm3 0.0-0.1 N MANUAL DIFF REQUIRED (test code = MDIFF) NO [id number] 20:33:00* Test Item Value Reference Range Interpretation Comments GLUBED (test code = GLUBED) 139 mg/dL 74-106 H Performed by certified basin operator at [facility] [id number] 20:33:00* Test Item Value Reference Range Interpretation Comments GLUBED (test code = GLUBED) 38 mg/dL 74-106 LL Performed by certified basin operator at [facility])DKA Protocol~ [id number] 20:33:00* Test Item Value Reference Range Interpretation Comments GLUBED (test code = GLUBED) 124 mg/dL 74-106 H Performed by certified basin operator at [facility]) [id number] 08:48:00* Test Item Value Reference Range Interpretation Comments GLUBED (test code = GLUBED) 145 mg/dL 74-106 H Performed by certified basin operator at [facility]) [id number] 08:48:00* Test Item Value Reference Range Interpretation Comments GLUBED (test code = GLUBED) 67 mg/dL 74-106 L Performed by certified basin operator at [facility]) B-TYPE NATRIURETIC [id number] 05:26:00* Test Item Value Reference Range Interpretation Comments B-TYPE NATRIURETIC PEPTIDE (test code = BNP) 1217.33 pgram/mL 0-100 H CBC W/AUTO [id number] 05:04:00* Test Item Value Reference Range Interpretation Comments WHITE BLOOD CELL (test code = WBC) 18.4 K/mm3 4.5-12.5 H RED BLOOD CELL (test code = RBC) 3.07 mill/mm3 4.0-5.8 L HEMOGLOBIN (test code = HGB) 8.5 gram/dL 13.0-17.5 L HEMATOCRIT (test code = HCT) 26.4 % 42.0-52.0 L MEAN CELL VOLUME (test code = MCV) 86.0 fL 80-98 N MEAN CELL HGB (test code = MCH) 27.7 picogram 27.0-33.0 N MEAN CELL HGB CONCETRATION (test code = MCHC) 32.2 gram/dL 33.0-36. 0 L RED CELL DISTRIBUTION WIDTH (test code = RDW) 12.8 % 11.6-16. 2 N RED CELL DISTRIBUTION WIDTH SD (test code = RDW-SD) 40.1 fL 37 .0-51.0 N PLATELET COUNT (test code = PLT) 305 K/mm3 150-450 N MEAN PLATELET VOLUME (test code = MPV) 11.0 fL 6.7-11.0 N NEUTROPHIL % (test code = NT%) 87.9 % 39.0-69.0 H IMMATURE GRANULOCYTE % (test code = IG%) 1.9 % 0.0-5.0 N LYMPHOCYTE % (test code = LY%) 4.2 % 25.0-55.0 L MONOCYTE % (test code = MO%) 5.7 % 0.0-10.0 N EOSINOPHIL % (test code = EO%) 0.0 % 0.0-5.0 N BASOPHIL % (test code = BA%) 0.3 % 0.0-1.0 N NUCLEATED RBC % (test code = NRBC%) 0.0 % 0-0 N NEUTROPHIL # (test code = NT#) 16.21 K/mm3 1.8-7.7 H IMMATURE GRANULOCYTE # (test code = IG#) 0.35 x10 3/uL 0-0.03 H LYMPHOCYTE # (test code = LY#) 0.77 K/mm3 1.0-5.0 L MONOCYTE # (test code = MO#) 1.05 K/mm3 0-0.8 H EOSINOPHIL # (test code = EO#) 0.00 K/mm3 0.0-0.5 N BASOPHIL # (test code = BA#) 0.05 K/mm3 0.0-0.2 N NUCLEATED RBC # (test code = NRBC#) 0.00 K/mm3 0.0-0.1 N MANUAL DIFF REQUIRED (test code = MDIFF) NO BASIC METABOLIC [id number] 04:57:00* Test Item Value Reference Range Interpretation Comments SODIUM (test code = NA) 134 mmol/L 136-145 L POTASSIUM (test code = K) 3.9 mmol/L 3.5-5.1 N CHLORIDE (test code = CL) 95.0 mmol/L 98-107 L CARBON DIOXIDE (test code = CO2) 28.0 mmol/L 21-32 N ANION GAP (test code = GAP) 14.9 10-20 N GLUCOSE (test code = GLU) 75 mg/dL 74-106 N BLOOD UREA NITROGEN (test code = BUN) 62 mg/dL 7-18 H GLOMERULAR FILTRATION RATE (test code = GFR) 21 mL/min >=60 Estimated GFR by using Modified MDRD formula.Chronic kidney disease is defined as either kidney damageor GFR <60 mL/min/1.73 m2 for >3 months. CREATININE (test code = CREAT) 3.10 mg/dL 0.7-1.3 H BUN/CREATININE RATIO (test code = BUN/CREA) 19.8 10-20 N CALCIUM (test code = CA) 7.1 mg/dL 8.5-10.1 L [id number] 22:08:00* Test Item Value Reference Range Interpretation Comments GLUBED (test code = GLUBED) 132 mg/dL 74-106 H Performed by certified basin operator at [facility]) [id number] 16:38:00* Test Item Value Reference Range Interpretation Comments GLUBED (test code = GLUBED) 154 mg/dL 74-106 H Performed by certified basin operator at [facility]) [id number] 11:50:00* Test Item Value Reference Range Interpretation Comments GLUBED (test code = GLUBED) 118 mg/dL 74-106 H Performed by certified basin operator at [facility]) - CT CHEST W/O [id number] 11:28:00 Name: TORRES MAI [facility] : 1960 Age/S: 58 / M [address] [facility] Unit #: [id number] Loc: [place] [address] Phys: Ml Fan MSN Acct: [id number] Dis Date: Status: ADM IN PHONE #: [phone] Exam Date: 02/24/2019 1115 FAX #: [phone] Reason: hypoxia EXAMS: CPT CODE: [id number] CT CHEST W/O CONTRAST 68173 HISTORY: Hypoxia. Sepsis. COMPARISON: Chest x-ray from [...] Orig Print D/T: S: 02/24/2019 (1131) FABIOLA MUELLER 1 Signed Report GLUBED 2019-02-24 08:12:00* Test Item Value Reference Range Interpretation Comments GLUBED (test code = GLUBED) 77 mg/dL 74-106 N Performed by certified basin operator at [facility]) CBC W/AUTO [id number] 06:01:00* Test Item Value Reference Range Interpretation Comments WHITE BLOOD CELL (test code = WBC) 22.2 K/mm3 4.5-12.5 H RED BLOOD CELL (test code = RBC) 3.38 mill/mm3 4.0-5.8 L HEMOGLOBIN (test code = HGB) 9.5 gram/dL 13.0-17.5 L HEMATOCRIT (test code = HCT) 28.4 % 42.0-52.0 L MEAN CELL VOLUME (test code = MCV) 84.0 fL 80-98 N MEAN CELL HGB (test code = MCH) 28.1 picogram 27.0-33.0 N MEAN CELL HGB CONCETRATION (test code = MCHC) 33.5 gram/dL 33.0-36. 0 N RED CELL DISTRIBUTION WIDTH (test code = RDW) 12.6 % 11.6-16. 2 N RED CELL DISTRIBUTION WIDTH SD (test code = RDW-SD) 38.6 fL 37 .0-51.0 N PLATELET COUNT (test code = PLT) 345 K/mm3 150-450 N MEAN PLATELET VOLUME (test code = MPV) 11.2 fL 6.7-11.0 H NEUTROPHIL % (test code = NT%) 89.4 % 39.0-69.0 H IMMATURE GRANULOCYTE % (test code = IG%) 1.4 % 0.0-5.0 N LYMPHOCYTE % (test code = LY%) 4.5 % 25.0-55.0 L MONOCYTE % (test code = MO%) 4.5 % 0.0-10.0 N EOSINOPHIL % (test code = EO%) 0.0 % 0.0-5.0 N BASOPHIL % (test code = BA%) 0.2 % 0.0-1.0 N NUCLEATED RBC % (test code = NRBC%) 0.0 % 0-0 N NEUTROPHIL # (test code = NT#) 19.87 K/mm3 1.8-7.7 H IMMATURE GRANULOCYTE # (test code = IG#) 0.32 x10 3/uL 0-0.03 H LYMPHOCYTE # (test code = LY#) 0.99 K/mm3 1.0-5.0 L MONOCYTE # (test code = MO#) 1.00 K/mm3 0-0.8 H EOSINOPHIL # (test code = EO#) 0.00 K/mm3 0.0-0.5 N BASOPHIL # (test code = BA#) 0.05 K/mm3 0.0-0.2 N NUCLEATED RBC # (test code = NRBC#) 0.00 K/mm3 0.0-0.1 N MANUAL DIFF REQUIRED (test code = MDIFF) NO B-TYPE NATRIURETIC [id number] 05:59:00* Test Item Value Reference Range Interpretation Comments B-TYPE NATRIURETIC PEPTIDE (test code = BNP) 1547.04 pgram/mL 0-100 H BASIC METABOLIC [id number] 05:52:00* Test Item Value Reference Range Interpretation Comments SODIUM (test code = NA) 133 mmol/L 136-145 L POTASSIUM (test code = K) 3.2 mmol/L 3.5-5.1 L CHLORIDE (test code = CL) 94.0 mmol/L 98-107 L CARBON DIOXIDE (test code = CO2) 28.0 mmol/L 21-32 N ANION GAP (test code = GAP) 14.2 10-20 N GLUCOSE (test code = GLU) 76 mg/dL 74-106 N BLOOD UREA NITROGEN (test code = BUN) 63 mg/dL 7-18 H GLOMERULAR FILTRATION RATE (test code = GFR) 21 mL/min >=60 Estimated GFR by using Modified MDRD formula.Chronic kidney disease is defined as either kidney damageor GFR <60 mL/min/1.73 m2 for >3 months. CREATININE (test code = CREAT) 3.10 mg/dL 0.7-1.3 H BUN/CREATININE RATIO (test code = BUN/CREA) 20.3 10-20 H CALCIUM (test code = CA) 7.6 mg/dL 8.5-10.1 L BASIC METABOLIC [id number] 05:48:00* Test Item Value Reference Range Interpretation Comments SODIUM (test code = NA) 133 mmol/L 136-145 L POTASSIUM (test code = K) 3.2 mmol/L 3.5-5.1 L CHLORIDE (test code = CL) 94.0 mmol/L 98-107 L CARBON DIOXIDE (test code = CO2) mmol/L 21-32 ANION GAP (test code = GAP) 10-20 GLUCOSE (test code = GLU) mg/dL 74-106 BLOOD UREA NITROGEN (test code = BUN) mg/dL 7-18 GLOMERULAR FILTRATION RATE (test code = GFR) mL/min >=60 CREATININE (test code = CREAT) mg/dL 0.7-1.3 BUN/CREATININE RATIO (test code = BUN/CREA) 10-20 CALCIUM (test code = CA) mg/dL 8.5-10.1 [id number] 20:52:00* Test Item Value Reference Range Interpretation Comments GLUBED (test code = GLUBED) 137 mg/dL 74-106 H Performed by certified basin operator at [facility] [id number] 16:54:00* Test Item Value Reference Range Interpretation Comments GLUBED (test code = GLUBED) 160 mg/dL 74-106 H Performed by certified basin operator at [facility]) [id number] 16:54:00* Test Item Value Reference Range Interpretation Comments GLUBED (test code = GLUBED) 175 mg/dL 74-106 H Performed by certified basin operator at [facility]) [id number] 16:54:00* Test Item Value Reference Range Interpretation Comments GLUBED (test code = GLUBED) 121 mg/dL 74-106 H Performed by certified basin operator at [facility]) CBC W/MANUAL [id number] 06:07:00* Test Item Value Reference Range Interpretation Comments WHITE BLOOD CELL (test code = WBC) 24.1 K/mm3 4.5-12.5 H RED BLOOD CELL (test code = RBC) 3.04 mill/mm3 4.0-5.8 L HEMOGLOBIN (test code = HGB) 8.4 gram/dL 13.0-17.5 L HEMATOCRIT (test code = HCT) 25.6 % 42.0-52.0 L MEAN CELL VOLUME (test code = MCV) 84.2 fL 80-98 N MEAN CELL HGB (test code = MCH) 27.6 picogram 27.0-33.0 N MEAN CELL HGB CONCETRATION (test code = MCHC) 32.8 gram/dL 33.0-36. 0 L RED CELL DISTRIBUTION WIDTH (test code = RDW) 12.4 % 11.6-16. 2 N RED CELL DISTRIBUTION WIDTH SD (test code = RDW-SD) 37.7 fL 37 .0-51.0 N PLATELET COUNT (test code = PLT) 311 K/mm3 150-450 N MEAN PLATELET VOLUME (test code = MPV) 11.1 fL 6.7-11.0 H IMMATURE GRANULOCYTE % (test code = IG%) 1.9 % 0.0-5.0 N NUCLEATED RBC % (test code = NRBC%) 0.0 % 0-0 N NEUTROPHIL # (test code = NT#) 21.33 K/mm3 1.8-7.7 H IMMATURE GRANULOCYTE # (test code = IG#) 0.45 x10 3/uL 0-0.03 H LYMPHOCYTE # (test code = LY#) 1.12 K/mm3 1.0-5.0 N MONOCYTE # (test code = MO#) 1.11 K/mm3 0-0.8 H EOSINOPHIL # (test code = EO#) 0.00 K/mm3 0.0-0.5 N BASOPHIL # (test code = BA#) 0.07 K/mm3 0.0-0.2 N NUCLEATED RBC # (test code = NRBC#) 0.00 K/mm3 0.0-0.1 N MANUAL DIFF REQUIRED (test code = MDIFF) YES STAIN ACCEPTABILITY (test code = STN ACCEPTABLE) STAIN ACCEPTABLE TOTAL CELLS COUNTED (test code = TCC) 114 #CELLS SEGMENTED NEUTROPHILS (test code = SEG) 92.1 % 39-69 H BAND NEUTROPHIL (test code = BAND) 0 % 0-10 N LYMPHOCYTE (test code = LYMPH) 7.0 % 25-55 L REACTIVE LYMPH (test code = RELYMPH) 0.9 % MONOCYTE (test code = MON) 0 % 0-10 N EOSINOPHIL (test code = EOS) 0 % 0.0-5.0 N BASOPHIL (test code = BASO) 0 % 0-1.0 N METAMYELOCYTE (test code = META) 0 % 0-0 N MYELOCYTE (test code = MYELO) 0 % 0.0-0.0 N PROMYELOCYTE (test code = PROM) 0 % 0-0 N POIKILOCYTOSIS (test code = POIK) 1+ ANISOCYTOSIS (test code = ANISO) 1+ MICROCYTOSIS (test code = MICR) 1+ CRENATED CELLS (test code = CREN) 1+ PLATELET ESTIMATE (test code = PLTEST) ADEQUATE PLATELET MORPHOLOGY (test code = PLTMORPH) NORMAL IMMATURE FORMS (test code = IMMAT) 0 % 0-0 N BASIC METABOLIC [id number] 05:43:00* Test Item Value Reference Range Interpretation Comments SODIUM (test code = NA) 134 mmol/L 136-145 L POTASSIUM (test code = K) 3.7 mmol/L 3.5-5.1 N CHLORIDE (test code = CL) 93.0 mmol/L 98-107 L CARBON DIOXIDE (test code = CO2) 28.0 mmol/L 21-32 N ANION GAP (test code = GAP) 16.7 10-20 N GLUCOSE (test code = GLU) 126 mg/dL 74-106 H BLOOD UREA NITROGEN (test code = BUN) 67 mg/dL 7-18 H GLOMERULAR FILTRATION RATE (test code = GFR) 20 mL/min >=60 Estimated GFR by using Modified MDRD formula.Chronic kidney disease is defined as either kidney damageor GFR <60 mL/min/1.73 m2 for >3 months. CREATININE (test code = CREAT) 3.20 mg/dL 0.7-1.3 H BUN/CREATININE RATIO (test code = BUN/CREA) 21.1 10-20 H CALCIUM (test code = CA) 7.1 mg/dL 8.5-10.1 L [id number] 05:43:00* Test Item Value Reference Range Interpretation Comments PHOSPHORUS (test code = PHOS) 3.0 mg/dL 2.5-4.9 N BASIC METABOLIC [id number] 05:33:00* Test Item Value Reference Range Interpretation Comments SODIUM (test code = NA) 134 mmol/L 136-145 L POTASSIUM (test code = K) 3.7 mmol/L 3.5-5.1 N CHLORIDE (test code = CL) 93.0 mmol/L 98-107 L CARBON DIOXIDE (test code = CO2) mmol/L 21-32 ANION GAP (test code = GAP) 10-20 GLUCOSE (test code = GLU) mg/dL 74-106 BLOOD UREA NITROGEN (test code = BUN) mg/dL 7-18 GLOMERULAR FILTRATION RATE (test code = GFR) mL/min >=60 CREATININE (test code = CREAT) mg/dL 0.7-1.3 BUN/CREATININE RATIO (test code = BUN/CREA) 10-20 CALCIUM (test code = CA) mg/dL 8.5-10.1 [id number] 05:33:00* Test Item Value Reference Range Interpretation Comments PHOSPHORUS (test code = PHOS) mg/dL 2.5-4.9 CBC W/MANUAL [id number] 05:10:00* Test Item Value Reference Range Interpretation Comments WHITE BLOOD CELL (test code = WBC) 24.1 K/mm3 4.5-12.5 H RED BLOOD CELL (test code = RBC) 3.04 mill/mm3 4.0-5.8 L HEMOGLOBIN (test code = HGB) 8.4 gram/dL 13.0-17.5 L HEMATOCRIT (test code = HCT) 25.6 % 42.0-52.0 L MEAN CELL VOLUME (test code = MCV) 84.2 fL 80-98 N MEAN CELL HGB (test code = MCH) 27.6 picogram 27.0-33.0 N MEAN CELL HGB CONCETRATION (test code = MCHC) 32.8 gram/dL 33.0-36. 0 L RED CELL DISTRIBUTION WIDTH (test code = RDW) 12.4 % 11.6-16. 2 N RED CELL DISTRIBUTION WIDTH SD (test code = RDW-SD) 37.7 fL 37 .0-51.0 N PLATELET COUNT (test code = PLT) 311 K/mm3 150-450 N MEAN PLATELET VOLUME (test code = MPV) 11.1 fL 6.7-11.0 H IMMATURE GRANULOCYTE % (test code = IG%) 1.9 % 0.0-5.0 N NUCLEATED RBC % (test code = NRBC%) 0.0 % 0-0 N NEUTROPHIL # (test code = NT#) 21.33 K/mm3 1.8-7.7 H IMMATURE GRANULOCYTE # (test code = IG#) 0.45 x10 3/uL 0-0.03 H LYMPHOCYTE # (test code = LY#) 1.12 K/mm3 1.0-5.0 N MONOCYTE # (test code = MO#) 1.11 K/mm3 0-0.8 H EOSINOPHIL # (test code = EO#) 0.00 K/mm3 0.0-0.5 N BASOPHIL # (test code = BA#) 0.07 K/mm3 0.0-0.2 N NUCLEATED RBC # (test code = NRBC#) 0.00 K/mm3 0.0-0.1 N MANUAL DIFF REQUIRED (test code = MDIFF) YES STAIN ACCEPTABILITY (test code = STN ACCEPTABLE) TOTAL CELLS COUNTED (test code = TCC) #CELLS SEGMENTED NEUTROPHILS (test code = SEG) % 39-69 LYMPHOCYTE (test code = LYMPH) % 25-55 MONOCYTE (test code = MON) % 0-10 EOSINOPHIL (test code = EOS) % 0.0-5.0 CABOT RINGS (test code = CAB) MORPHOLOGY COMMENT (test code = MOC) PLATELET ESTIMATE (test code = PLTEST) PLATELET MORPHOLOGY (test code = PLTMORPH) CBC W/MANUAL [id number] 05:10:00* Test Item Value Reference Range Interpretation Comments WHITE BLOOD CELL (test code = WBC) 24.1 K/mm3 4.5-12.5 H RED BLOOD CELL (test code = RBC) 3.04 mill/mm3 4.0-5.8 L HEMOGLOBIN (test code = HGB) 8.4 gram/dL 13.0-17.5 L HEMATOCRIT (test code = HCT) 25.6 % 42.0-52.0 L MEAN CELL VOLUME (test code = MCV) 84.2 fL 80-98 N MEAN CELL HGB (test code = MCH) 27.6 picogram 27.0-33.0 N MEAN CELL HGB CONCETRATION (test code = MCHC) 32.8 gram/dL 33.0-36. 0 L RED CELL DISTRIBUTION WIDTH (test code = RDW) 12.4 % 11.6-16. 2 N RED CELL DISTRIBUTION WIDTH SD (test code = RDW-SD) 37.7 fL 37 .0-51.0 N PLATELET COUNT (test code = PLT) 311 K/mm3 150-450 N MEAN PLATELET VOLUME (test code = MPV) 11.1 fL 6.7-11.0 H IMMATURE GRANULOCYTE % (test code = IG%) 1.9 % 0.0-5.0 N NUCLEATED RBC % (test code = NRBC%) 0.0 % 0-0 N NEUTROPHIL # (test code = NT#) 21.33 K/mm3 1.8-7.7 H IMMATURE GRANULOCYTE # (test code = IG#) 0.45 x10 3/uL 0-0.03 H LYMPHOCYTE # (test code = LY#) 1.12 K/mm3 1.0-5.0 N MONOCYTE # (test code = MO#) 1.11 K/mm3 0-0.8 H EOSINOPHIL # (test code = EO#) 0.00 K/mm3 0.0-0.5 N BASOPHIL # (test code = BA#) 0.07 K/mm3 0.0-0.2 N NUCLEATED RBC # (test code = NRBC#) 0.00 K/mm3 0.0-0.1 N MANUAL DIFF REQUIRED (test code = MDIFF) YES STAIN ACCEPTABILITY (test code = STN ACCEPTABLE) TOTAL CELLS COUNTED (test code = TCC) #CELLS SEGMENTED NEUTROPHILS (test code = SEG) % 39-69 LYMPHOCYTE (test code = LYMPH) % 25-55 MONOCYTE (test code = MON) % 0-10 EOSINOPHIL (test code = EOS) % 0.0-5.0 CABOT RINGS (test code = CAB) MORPHOLOGY COMMENT (test code = MOC) PLATELET ESTIMATE (test code = PLTEST) PLATELET MORPHOLOGY (test code = PLTMORPH) CBC W/MANUAL [id number] 05:10:00* Test Item Value Reference Range Interpretation Comments WHITE BLOOD CELL (test code = WBC) 24.1 K/mm3 4.5-12.5 H RED BLOOD CELL (test code = RBC) 3.04 mill/mm3 4.0-5.8 L HEMOGLOBIN (test code = HGB) 8.4 gram/dL 13.0-17.5 L HEMATOCRIT (test code = HCT) 25.6 % 42.0-52.0 L MEAN CELL VOLUME (test code = MCV) 84.2 fL 80-98 N MEAN CELL HGB (test code = MCH) 27.6 picogram 27.0-33.0 N MEAN CELL HGB CONCETRATION (test code = MCHC) 32.8 gram/dL 33.0-36. 0 L RED CELL DISTRIBUTION WIDTH (test code = RDW) 12.4 % 11.6-16. 2 N RED CELL DISTRIBUTION WIDTH SD (test code = RDW-SD) 37.7 fL 37 .0-51.0 N PLATELET COUNT (test code = PLT) 311 K/mm3 150-450 N MEAN PLATELET VOLUME (test code = MPV) 11.1 fL 6.7-11.0 H IMMATURE GRANULOCYTE % (test code = IG%) 1.9 % 0.0-5.0 N NUCLEATED RBC % (test code = NRBC%) 0.0 % 0-0 N NEUTROPHIL # (test code = NT#) 21.33 K/mm3 1.8-7.7 H IMMATURE GRANULOCYTE # (test code = IG#) 0.45 x10 3/uL 0-0.03 H LYMPHOCYTE # (test code = LY#) 1.12 K/mm3 1.0-5.0 N MONOCYTE # (test code = MO#) 1.11 K/mm3 0-0.8 H EOSINOPHIL # (test code = EO#) 0.00 K/mm3 0.0-0.5 N BASOPHIL # (test code = BA#) 0.07 K/mm3 0.0-0.2 N NUCLEATED RBC # (test code = NRBC#) 0.00 K/mm3 0.0-0.1 N MANUAL DIFF REQUIRED (test code = MDIFF) YES STAIN ACCEPTABILITY (test code = STN ACCEPTABLE) TOTAL CELLS COUNTED (test code = TCC) #CELLS SEGMENTED NEUTROPHILS (test code = SEG) % 39-69 LYMPHOCYTE (test code = LYMPH) % 25-55 MONOCYTE (test code = MON) % 0-10 EOSINOPHIL (test code = EOS) % 0.0-5.0 MORPHOLOGY COMMENT (test code = MOC) PLATELET ESTIMATE (test code = PLTEST) PLATELET MORPHOLOGY (test code = PLTMORPH) CBC W/MANUAL [id number] 05:10:00* Test Item Value Reference Range Interpretation Comments WHITE BLOOD CELL (test code = WBC) 24.1 K/mm3 4.5-12.5 H RED BLOOD CELL (test code = RBC) 3.04 mill/mm3 4.0-5.8 L HEMOGLOBIN (test code = HGB) 8.4 gram/dL 13.0-17.5 L HEMATOCRIT (test code = HCT) 25.6 % 42.0-52.0 L MEAN CELL VOLUME (test code = MCV) 84.2 fL 80-98 N MEAN CELL HGB (test code = MCH) 27.6 picogram 27.0-33.0 N MEAN CELL HGB CONCETRATION (test code = MCHC) 32.8 gram/dL 33.0-36. 0 L RED CELL DISTRIBUTION WIDTH (test code = RDW) 12.4 % 11.6-16. 2 N RED CELL DISTRIBUTION WIDTH SD (test code = RDW-SD) 37.7 fL 37 .0-51.0 N PLATELET COUNT (test code = PLT) 311 K/mm3 150-450 N MEAN PLATELET VOLUME (test code = MPV) 11.1 fL 6.7-11.0 H IMMATURE GRANULOCYTE % (test code = IG%) 1.9 % 0.0-5.0 N NUCLEATED RBC % (test code = NRBC%) 0.0 % 0-0 N NEUTROPHIL # (test code = NT#) 21.33 K/mm3 1.8-7.7 H IMMATURE GRANULOCYTE # (test code = IG#) 0.45 x10 3/uL 0-0.03 H LYMPHOCYTE # (test code = LY#) 1.12 K/mm3 1.0-5.0 N MONOCYTE # (test code = MO#) 1.11 K/mm3 0-0.8 H EOSINOPHIL # (test code = EO#) 0.00 K/mm3 0.0-0.5 N BASOPHIL # (test code = BA#) 0.07 K/mm3 0.0-0.2 N NUCLEATED RBC # (test code = NRBC#) 0.00 K/mm3 0.0-0.1 N MANUAL DIFF REQUIRED (test code = MDIFF) YES STAIN ACCEPTABILITY (test code = STN ACCEPTABLE) TOTAL CELLS COUNTED (test code = TCC) #CELLS SEGMENTED NEUTROPHILS (test code = SEG) % 39-69 LYMPHOCYTE (test code = LYMPH) % 25-55 MONOCYTE (test code = MON) % 0-10 MORPHOLOGY COMMENT (test code = MOC) PLATELET ESTIMATE (test code = PLTEST) PLATELET MORPHOLOGY (test code = PLTMORPH) CBC W/MANUAL [id number] 05:10:00* Test Item Value Reference Range Interpretation Comments WHITE BLOOD CELL (test code = WBC) 24.1 K/mm3 4.5-12.5 H RED BLOOD CELL (test code = RBC) 3.04 mill/mm3 4.0-5.8 L HEMOGLOBIN (test code = HGB) 8.4 gram/dL 13.0-17.5 L HEMATOCRIT (test code = HCT) 25.6 % 42.0-52.0 L MEAN CELL VOLUME (test code = MCV) 84.2 fL 80-98 N MEAN CELL HGB (test code = MCH) 27.6 picogram 27.0-33.0 N MEAN CELL HGB CONCETRATION (test code = MCHC) 32.8 gram/dL 33.0-36. 0 L RED CELL DISTRIBUTION WIDTH (test code = RDW) 12.4 % 11.6-16. 2 N RED CELL DISTRIBUTION WIDTH SD (test code = RDW-SD) 37.7 fL 37 .0-51.0 N PLATELET COUNT (test code = PLT) 311 K/mm3 150-450 N MEAN PLATELET VOLUME (test code = MPV) 11.1 fL 6.7-11.0 H IMMATURE GRANULOCYTE % (test code = IG%) 1.9 % 0.0-5.0 N NUCLEATED RBC % (test code = NRBC%) 0.0 % 0-0 N NEUTROPHIL # (test code = NT#) 21.33 K/mm3 1.8-7.7 H IMMATURE GRANULOCYTE # (test code = IG#) 0.45 x10 3/uL 0-0.03 H LYMPHOCYTE # (test code = LY#) 1.12 K/mm3 1.0-5.0 N MONOCYTE # (test code = MO#) 1.11 K/mm3 0-0.8 H EOSINOPHIL # (test code = EO#) 0.00 K/mm3 0.0-0.5 N BASOPHIL # (test code = BA#) 0.07 K/mm3 0.0-0.2 N NUCLEATED RBC # (test code = NRBC#) 0.00 K/mm3 0.0-0.1 N MANUAL DIFF REQUIRED (test code = MDIFF) YES STAIN ACCEPTABILITY (test code = STN ACCEPTABLE) TOTAL CELLS COUNTED (test code = TCC) #CELLS SEGMENTED NEUTROPHILS (test code = SEG) % 39-69 LYMPHOCYTE (test code = LYMPH) % 25-55 MONOCYTE (test code = MON) % 0-10 EOSINOPHIL (test code = EOS) % 0.0-5.0 CABOT RINGS (test code = CAB) MORPHOLOGY COMMENT (test code = MOC) PLATELET ESTIMATE (test code = PLTEST) PLATELET MORPHOLOGY (test code = PLTMORPH) [id number] 21:13:00* Test Item Value Reference Range Interpretation Comments GLUBED (test code = GLUBED) 328 mg/dL 74-106 H Performed by certified basin operator at [facility] ([facility])Notified Nurse~ [id number] 16:43:00* Test Item Value Reference Range Interpretation Comments GLUBED (test code = GLUBED) 397 mg/dL 74-106 H Performed by certified basin operator at [facility] ([facility]) UR PROTEIN [id number] 14:50:00* Test Item Value Reference Range Interpretation Comments UR PROTEIN RANDOM (test code = PROTU) 84.9 mg/dL 0.0-11.9 H Protein levels may be falsely elevated in patients withelevated level of aminoglycoside antibiotics in CSF and inhighly concentrated urine specimens. If false elevation issuspected, contact lab for alternated testing technique. UR PROTEIN 24HR (test code = HHLK96D) 1103.70 mg/24hr 40-150 H UR VOLUME 24HR (test code = VOL) 1300 mL/24hrs 0620-2090 1300 TOTAL [id number] 11:02:00* Test Item Value Reference Range Interpretation Comments GLUBED (test code = GLUBED) 437 mg/dL 74-106 H Performed by certified basin operator at [facility] ([facility]) [id number] 11:02:00* Test Item Value Reference Range Interpretation Comments GLUBED (test code = GLUBED) > 500 mg/dL 74-106 HH Performed by certified basin operator at [facility] ([facility])Notified Nurse~ [id number] 08:36:00* Test Item Value Reference Range Interpretation Comments GLUBED (test code = GLUBED) 425 mg/dL 74-106 H Performed by certified basin operator at [facility] ([facility])Notified Nurse~ B-TYPE NATRIURETIC [id number] 07:40:00* Test Item Value Reference Range Interpretation Comments B-TYPE NATRIURETIC PEPTIDE (test code = BNP) 1528.05 pgram/mL 0-100 H Has Patient received Natrecor? NOUR PROTEIN [id number] 07:30:00* Test Item Value Reference Range Interpretation Comments UR PROTEIN RANDOM (test code = PROTU) 84.9 mg/dL 0.0-11.9 H Protein levels may be falsely elevated in patients withelevated level of aminoglycoside antibiotics in CSF and inhighly concentrated urine specimens. If false elevation issuspected, contact lab for alternated testing technique. UR PROTEIN 24HR (test code = MAAT29S) mg/24hr 40-150 UR VOLUME 24HR (test code = VOL) mL/24hrs 0196-7257 1300 TOTAL VOLUMECBC W/MANUAL [id number] 07:20:00* Test Item Value Reference Range Interpretation Comments WHITE BLOOD CELL (test code = WBC) 25.1 K/mm3 4.5-12.5 H RED BLOOD CELL (test code = RBC) 3.27 mill/mm3 4.0-5.8 L HEMOGLOBIN (test code = HGB) 9.2 gram/dL 13.0-17.5 L HEMATOCRIT (test code = HCT) 26.9 % 42.0-52.0 L MEAN CELL VOLUME (test code = MCV) 82.3 fL 80-98 N MEAN CELL HGB (test code = MCH) 28.1 picogram 27.0-33.0 N MEAN CELL HGB CONCETRATION (test code = MCHC) 34.2 gram/dL 33.0-36. 0 N RED CELL DISTRIBUTION WIDTH (test code = RDW) 12.5 % 11.6-16. 2 N RED CELL DISTRIBUTION WIDTH SD (test code = RDW-SD) 38.1 fL 37 .0-51.0 N PLATELET COUNT (test code = PLT) 290 K/mm3 150-450 N MEAN PLATELET VOLUME (test code = MPV) 11.8 fL 6.7-11.0 H IMMATURE GRANULOCYTE % (test code = IG%) 2.0 % 0.0-5.0 N NUCLEATED RBC % (test code = NRBC%) 0.0 % 0-0 N NEUTROPHIL # (test code = NT#) 23.51 K/mm3 1.8-7.7 H IMMATURE GRANULOCYTE # (test code = IG#) 0.51 x10 3/uL 0-0.03 H LYMPHOCYTE # (test code = LY#) 0.44 K/mm3 1.0-5.0 L MONOCYTE # (test code = MO#) 0.62 K/mm3 0-0.8 N EOSINOPHIL # (test code = EO#) 0.00 K/mm3 0.0-0.5 N BASOPHIL # (test code = BA#) 0.05 K/mm3 0.0-0.2 N NUCLEATED RBC # (test code = NRBC#) 0.00 K/mm3 0.0-0.1 N MANUAL DIFF REQUIRED (test code = MDIFF) YES STAIN ACCEPTABILITY (test code = STN ACCEPTABLE) STAIN ACCEPTABLE TOTAL CELLS COUNTED (test code = TCC) 115 #CELLS SEGMENTED NEUTROPHILS (test code = SEG) 94.8 % 39-69 H BAND NEUTROPHIL (test code = BAND) 0.9 % 0-10 N LYMPHOCYTE (test code = LYMPH) 1.7 % 25-55 L REACTIVE LYMPH (test code = RELYMPH) 0 % MONOCYTE (test code = MON) 2.6 % 0-10 N EOSINOPHIL (test code = EOS) 0 % 0.0-5.0 N BASOPHIL (test code = BASO) 0 % 0-1.0 N METAMYELOCYTE (test code = META) 0 % 0-0 N MYELOCYTE (test code = MYELO) 0 % 0.0-0.0 N PROMYELOCYTE (test code = PROM) 0 % 0-0 N POIKILOCYTOSIS (test code = POIK) 1+ ANISOCYTOSIS (test code = ANISO) 1+ MICROCYTOSIS (test code = MICR) 1+ CRENATED CELLS (test code = CREN) 1+ PLATELET ESTIMATE (test code = PLTEST) ADEQUATE PLATELET MORPHOLOGY (test code = PLTMORPH) NORMAL IMMATURE FORMS (test code = IMMAT) 0 % 0-0 N [id number] 07:02:00* Test Item Value Reference Range Interpretation Comments TROPONIN-I (test code = TROPI) 0.821 ng/mL 0-0.045 HH CBC W/MANUAL [id number] 07:01:00* Test Item Value Reference Range Interpretation Comments WHITE BLOOD CELL (test code = WBC) 25.1 K/mm3 4.5-12.5 H RED BLOOD CELL (test code = RBC) 3.27 mill/mm3 4.0-5.8 L HEMOGLOBIN (test code = HGB) 9.2 gram/dL 13.0-17.5 L HEMATOCRIT (test code = HCT) 26.9 % 42.0-52.0 L MEAN CELL VOLUME (test code = MCV) 82.3 fL 80-98 N MEAN CELL HGB (test code = MCH) 28.1 picogram 27.0-33.0 N MEAN CELL HGB CONCETRATION (test code = MCHC) 34.2 gram/dL 33.0-36. 0 N RED CELL DISTRIBUTION WIDTH (test code = RDW) 12.5 % 11.6-16. 2 N RED CELL DISTRIBUTION WIDTH SD (test code = RDW-SD) 38.1 fL 37 .0-51.0 N PLATELET COUNT (test code = PLT) 290 K/mm3 150-450 N MEAN PLATELET VOLUME (test code = MPV) 11.8 fL 6.7-11.0 H IMMATURE GRANULOCYTE % (test code = IG%) 2.0 % 0.0-5.0 N NUCLEATED RBC % (test code = NRBC%) 0.0 % 0-0 N NEUTROPHIL # (test code = NT#) 23.51 K/mm3 1.8-7.7 H IMMATURE GRANULOCYTE # (test code = IG#) 0.51 x10 3/uL 0-0.03 H LYMPHOCYTE # (test code = LY#) 0.44 K/mm3 1.0-5.0 L MONOCYTE # (test code = MO#) 0.62 K/mm3 0-0.8 N EOSINOPHIL # (test code = EO#) 0.00 K/mm3 0.0-0.5 N BASOPHIL # (test code = BA#) 0.05 K/mm3 0.0-0.2 N NUCLEATED RBC # (test code = NRBC#) 0.00 K/mm3 0.0-0.1 N MANUAL DIFF REQUIRED (test code = MDIFF) YES STAIN ACCEPTABILITY (test code = STN ACCEPTABLE) TOTAL CELLS COUNTED (test code = TCC) #CELLS SEGMENTED NEUTROPHILS (test code = SEG) % 39-69 LYMPHOCYTE (test code = LYMPH) % 25-55 MONOCYTE (test code = MON) % 0-10 EOSINOPHIL (test code = EOS) % 0.0-5.0 CABOT RINGS (test code = CAB) MORPHOLOGY COMMENT (test code = MOC) PLATELET ESTIMATE (test code = PLTEST) PLATELET MORPHOLOGY (test code = PLTMORPH) CBC W/MANUAL [id number] 07:01:00* Test Item Value Reference Range Interpretation Comments WHITE BLOOD CELL (test code = WBC) 25.1 K/mm3 4.5-12.5 H RED BLOOD CELL (test code = RBC) 3.27 mill/mm3 4.0-5.8 L HEMOGLOBIN (test code = HGB) 9.2 gram/dL 13.0-17.5 L HEMATOCRIT (test code = HCT) 26.9 % 42.0-52.0 L MEAN CELL VOLUME (test code = MCV) 82.3 fL 80-98 N MEAN CELL HGB (test code = MCH) 28.1 picogram 27.0-33.0 N MEAN CELL HGB CONCETRATION (test code = MCHC) 34.2 gram/dL 33.0-36. 0 N RED CELL DISTRIBUTION WIDTH (test code = RDW) 12.5 % 11.6-16. 2 N RED CELL DISTRIBUTION WIDTH SD (test code = RDW-SD) 38.1 fL 37 .0-51.0 N PLATELET COUNT (test code = PLT) 290 K/mm3 150-450 N MEAN PLATELET VOLUME (test code = MPV) 11.8 fL 6.7-11.0 H IMMATURE GRANULOCYTE % (test code = IG%) 2.0 % 0.0-5.0 N NUCLEATED RBC % (test code = NRBC%) 0.0 % 0-0 N NEUTROPHIL # (test code = NT#) 23.51 K/mm3 1.8-7.7 H IMMATURE GRANULOCYTE # (test code = IG#) 0.51 x10 3/uL 0-0.03 H LYMPHOCYTE # (test code = LY#) 0.44 K/mm3 1.0-5.0 L MONOCYTE # (test code = MO#) 0.62 K/mm3 0-0.8 N EOSINOPHIL # (test code = EO#) 0.00 K/mm3 0.0-0.5 N BASOPHIL # (test code = BA#) 0.05 K/mm3 0.0-0.2 N NUCLEATED RBC # (test code = NRBC#) 0.00 K/mm3 0.0-0.1 N MANUAL DIFF REQUIRED (test code = MDIFF) YES STAIN ACCEPTABILITY (test code = STN ACCEPTABLE) TOTAL CELLS COUNTED (test code = TCC) #CELLS SEGMENTED NEUTROPHILS (test code = SEG) % 39-69 LYMPHOCYTE (test code = LYMPH) % 25-55 MONOCYTE (test code = MON) % 0-10 EOSINOPHIL (test code = EOS) % 0.0-5.0 MORPHOLOGY COMMENT (test code = MOC) PLATELET ESTIMATE (test code = PLTEST) PLATELET MORPHOLOGY (test code = PLTMORPH) CBC W/MANUAL [id number] 07:01:00* Test Item Value Reference Range Interpretation Comments WHITE BLOOD CELL (test code = WBC) 25.1 K/mm3 4.5-12.5 H RED BLOOD CELL (test code = RBC) 3.27 mill/mm3 4.0-5.8 L HEMOGLOBIN (test code = HGB) 9.2 gram/dL 13.0-17.5 L HEMATOCRIT (test code = HCT) 26.9 % 42.0-52.0 L MEAN CELL VOLUME (test code = MCV) 82.3 fL 80-98 N MEAN CELL HGB (test code = MCH) 28.1 picogram 27.0-33.0 N MEAN CELL HGB CONCETRATION (test code = MCHC) 34.2 gram/dL 33.0-36. 0 N RED CELL DISTRIBUTION WIDTH (test code = RDW) 12.5 % 11.6-16. 2 N RED CELL DISTRIBUTION WIDTH SD (test code = RDW-SD) 38.1 fL 37 .0-51.0 N PLATELET COUNT (test code = PLT) 290 K/mm3 150-450 N MEAN PLATELET VOLUME (test code = MPV) 11.8 fL 6.7-11.0 H IMMATURE GRANULOCYTE % (test code = IG%) 2.0 % 0.0-5.0 N NUCLEATED RBC % (test code = NRBC%) 0.0 % 0-0 N NEUTROPHIL # (test code = NT#) 23.51 K/mm3 1.8-7.7 H IMMATURE GRANULOCYTE # (test code = IG#) 0.51 x10 3/uL 0-0.03 H LYMPHOCYTE # (test code = LY#) 0.44 K/mm3 1.0-5.0 L MONOCYTE # (test code = MO#) 0.62 K/mm3 0-0.8 N EOSINOPHIL # (test code = EO#) 0.00 K/mm3 0.0-0.5 N BASOPHIL # (test code = BA#) 0.05 K/mm3 0.0-0.2 N NUCLEATED RBC # (test code = NRBC#) 0.00 K/mm3 0.0-0.1 N MANUAL DIFF REQUIRED (test code = MDIFF) YES STAIN ACCEPTABILITY (test code = STN ACCEPTABLE) TOTAL CELLS COUNTED (test code = TCC) #CELLS SEGMENTED NEUTROPHILS (test code = SEG) % 39-69 LYMPHOCYTE (test code = LYMPH) % 25-55 MONOCYTE (test code = MON) % 0-10 MORPHOLOGY COMMENT (test code = MOC) PLATELET ESTIMATE (test code = PLTEST) PLATELET MORPHOLOGY (test code = PLTMORPH) CBC W/MANUAL [id number] 07:00:00* Test Item Value Reference Range Interpretation Comments WHITE BLOOD CELL (test code = WBC) 25.1 K/mm3 4.5-12.5 H RED BLOOD CELL (test code = RBC) 3.27 mill/mm3 4.0-5.8 L HEMOGLOBIN (test code = HGB) 9.2 gram/dL 13.0-17.5 L HEMATOCRIT (test code = HCT) 26.9 % 42.0-52.0 L MEAN CELL VOLUME (test code = MCV) 82.3 fL 80-98 N MEAN CELL HGB (test code = MCH) 28.1 picogram 27.0-33.0 N MEAN CELL HGB CONCETRATION (test code = MCHC) 34.2 gram/dL 33.0-36. 0 N RED CELL DISTRIBUTION WIDTH (test code = RDW) 12.5 % 11.6-16. 2 N RED CELL DISTRIBUTION WIDTH SD (test code = RDW-SD) 38.1 fL 37 .0-51.0 N PLATELET COUNT (test code = PLT) 290 K/mm3 150-450 N MEAN PLATELET VOLUME (test code = MPV) 11.8 fL 6.7-11.0 H IMMATURE GRANULOCYTE % (test code = IG%) 2.0 % 0.0-5.0 N NUCLEATED RBC % (test code = NRBC%) 0.0 % 0-0 N NEUTROPHIL # (test code = NT#) 23.51 K/mm3 1.8-7.7 H IMMATURE GRANULOCYTE # (test code = IG#) 0.51 x10 3/uL 0-0.03 H LYMPHOCYTE # (test code = LY#) 0.44 K/mm3 1.0-5.0 L MONOCYTE # (test code = MO#) 0.62 K/mm3 0-0.8 N EOSINOPHIL # (test code = EO#) 0.00 K/mm3 0.0-0.5 N BASOPHIL # (test code = BA#) 0.05 K/mm3 0.0-0.2 N NUCLEATED RBC # (test code = NRBC#) 0.00 K/mm3 0.0-0.1 N MANUAL DIFF REQUIRED (test code = MDIFF) YES STAIN ACCEPTABILITY (test code = STN ACCEPTABLE) TOTAL CELLS COUNTED (test code = TCC) #CELLS SEGMENTED NEUTROPHILS (test code = SEG) % 39-69 LYMPHOCYTE (test code = LYMPH) % 25-55 MONOCYTE (test code = MON) % 0-10 EOSINOPHIL (test code = EOS) % 0.0-5.0 CABOT RINGS (test code = CAB) MORPHOLOGY COMMENT (test code = MOC) PLATELET ESTIMATE (test code = PLTEST) PLATELET MORPHOLOGY (test code = PLTMORPH) CBC W/MANUAL [id number] 07:00:00* Test Item Value Reference Range Interpretation Comments WHITE BLOOD CELL (test code = WBC) 25.1 K/mm3 4.5-12.5 H RED BLOOD CELL (test code = RBC) 3.27 mill/mm3 4.0-5.8 L HEMOGLOBIN (test code = HGB) 9.2 gram/dL 13.0-17.5 L HEMATOCRIT (test code = HCT) 26.9 % 42.0-52.0 L MEAN CELL VOLUME (test code = MCV) 82.3 fL 80-98 N MEAN CELL HGB (test code = MCH) 28.1 picogram 27.0-33.0 N MEAN CELL HGB CONCETRATION (test code = MCHC) 34.2 gram/dL 33.0-36. 0 N RED CELL DISTRIBUTION WIDTH (test code = RDW) 12.5 % 11.6-16. 2 N RED CELL DISTRIBUTION WIDTH SD (test code = RDW-SD) 38.1 fL 37 .0-51.0 N PLATELET COUNT (test code = PLT) 290 K/mm3 150-450 N MEAN PLATELET VOLUME (test code = MPV) 11.8 fL 6.7-11.0 H IMMATURE GRANULOCYTE % (test code = IG%) 2.0 % 0.0-5.0 N NUCLEATED RBC % (test code = NRBC%) 0.0 % 0-0 N NEUTROPHIL # (test code = NT#) 23.51 K/mm3 1.8-7.7 H IMMATURE GRANULOCYTE # (test code = IG#) 0.51 x10 3/uL 0-0.03 H LYMPHOCYTE # (test code = LY#) 0.44 K/mm3 1.0-5.0 L MONOCYTE # (test code = MO#) 0.62 K/mm3 0-0.8 N EOSINOPHIL # (test code = EO#) 0.00 K/mm3 0.0-0.5 N BASOPHIL # (test code = BA#) 0.05 K/mm3 0.0-0.2 N NUCLEATED RBC # (test code = NRBC#) 0.00 K/mm3 0.0-0.1 N MANUAL DIFF REQUIRED (test code = MDIFF) YES STAIN ACCEPTABILITY (test code = STN ACCEPTABLE) TOTAL CELLS COUNTED (test code = TCC) #CELLS SEGMENTED NEUTROPHILS (test code = SEG) % 39-69 LYMPHOCYTE (test code = LYMPH) % 25-55 MONOCYTE (test code = MON) % 0-10 EOSINOPHIL (test code = EOS) % 0.0-5.0 CABOT RINGS (test code = CAB) MORPHOLOGY COMMENT (test code = MOC) PLATELET ESTIMATE (test code = PLTEST) PLATELET MORPHOLOGY (test code = PLTMORPH) BASIC METABOLIC [id number] 06:56:00* Test Item Value Reference Range Interpretation Comments SODIUM (test code = NA) 131 mmol/L 136-145 L POTASSIUM (test code = K) 3.8 mmol/L 3.5-5.1 N CHLORIDE (test code = CL) 92.0 mmol/L 98-107 L CARBON DIOXIDE (test code = CO2) 27.0 mmol/L 21-32 N ANION GAP (test code = GAP) 15.8 10-20 N GLUCOSE (test code = GLU) 413 mg/dL 74-106 H BLOOD UREA NITROGEN (test code = BUN) 65 mg/dL 7-18 H GLOMERULAR FILTRATION RATE (test code = GFR) 20 mL/min >=60 Estimated GFR by using Modified MDRD formula.Chronic kidney disease is defined as either kidney damageor GFR <60 mL/min/1.73 m2 for >3 months. CREATININE (test code = CREAT) 3.20 mg/dL 0.7-1.3 H BUN/CREATININE RATIO (test code = BUN/CREA) 20.5 10-20 H CALCIUM (test code = CA) 7.4 mg/dL 8.5-10.1 L [id number] 06:56:00* Test Item Value Reference Range Interpretation Comments PHOSPHORUS (test code = PHOS) 3.4 mg/dL 2.5-4.9 N BASIC METABOLIC [id number] 06:45:00* Test Item Value Reference Range Interpretation Comments SODIUM (test code = NA) 131 mmol/L 136-145 L POTASSIUM (test code = K) 3.8 mmol/L 3.5-5.1 N CHLORIDE (test code = CL) 92.0 mmol/L 98-107 L CARBON DIOXIDE (test code = CO2) mmol/L 21-32 ANION GAP (test code = GAP) 10-20 GLUCOSE (test code = GLU) mg/dL 74-106 BLOOD UREA NITROGEN (test code = BUN) mg/dL 7-18 GLOMERULAR FILTRATION RATE (test code = GFR) mL/min >=60 CREATININE (test code = CREAT) mg/dL 0.7-1.3 BUN/CREATININE RATIO (test code = BUN/CREA) 10-20 CALCIUM (test code = CA) mg/dL 8.5-10.1 [id number] 06:45:00* Test Item Value Reference Range Interpretation Comments PHOSPHORUS (test code = PHOS) mg/dL 2.5-4.9 UR CREATININE CLEARANCE [id number] 04:15:00* Test Item Value Reference Range Interpretation Comments CREATININE CLEARANCE RESULT (test code = CREATCLR) 12 mL/min 100 -120 L CREATININE (test code = CREAT) 3.80 mg/dL 0.7-1.3 H UR CREATININE RANDOM (test code = CREATU) 51.0 mg/dL 30-125 N UR VOLUME 24HR (test code = VOL) 1300 mL/24hrs 6129-0004 UR PROTEIN/CREATININE [id number] 04:15:00* Test Item Value Reference Range Interpretation Comments UR PROTEIN RANDOM (test code = PROTU) 86.6 mg/dL 0.0-11.9 H Protein levels may be falsely elevated in patients withelevated level of aminoglycoside antibiotics in CSF and inhighly concentrated urine specimens. If false elevation issuspected, contact lab for alternated testing technique. PROTEIN/CREATININE RATIO (test code = P/CRATIO) 1.70 RATIO 0.0-0. 20 H LACTIC [id number] 02:38:00* Test Item Value Reference Range Interpretation Comments LACTIC ACID (test code = LACT) 1.2 mmol/L 0.4-1.9 N [id number] 02:37:00* Test Item Value Reference Range Interpretation Comments TROPONIN-I (test code = TROPI) 0.931 ng/mL 0-0.045 HH RESULT VERIFIED BY REPEAT ANALYSIS UR CREATININE CLEARANCE [id number] 01:34:00* Test Item Value Reference Range Interpretation Comments CREATININE CLEARANCE RESULT (test code = CREATCLR) mL/min 100 -120 CREATININE (test code = CREAT) 3.80 mg/dL 0.7-1.3 H UR CREATININE RANDOM (test code = CREATU) 51.0 mg/dL 30-125 N UR VOLUME 24HR (test code = VOL) mL/24hrs [id number] UR PROTEIN/CREATININE [id number] 01:34:00* Test Item Value Reference Range Interpretation Comments UR PROTEIN RANDOM (test code = PROTU) 86.6 mg/dL 0.0-11.9 H Protein levels may be falsely elevated in patients withelevated level of aminoglycoside antibiotics in CSF and inhighly concentrated urine specimens. If false elevation issuspected, contact lab for alternated testing technique. PROTEIN/CREATININE RATIO (test code = P/CRATIO) 1.70 RATIO 0.0-0. 20 H ARTERIAL BLOOD [id number] 00:08:00* Test Item Value Reference Range Interpretation Comments ARTERIAL BLOOD GAS PH (test code = PHA) 7.49 7.35-7.45 H ARTERIAL BLOOD GAS PCO2 (test code = PCO2A) 34.5 mm Hg 35-45 L ARTERIAL BLOOD GAS PO2 (test code = PO2A) 92.4 mmHg 80-100 N BICARBONATE TOTAL HCO3 (test code = HCO3) 25.6 mmol/L 23.0-27.0 N BASE EXCESS (test code = KATH) 2.6 mmol/L -3.0-5.0 N ABG O2 SATURATION (test code = SATA) 96.8 % 90.0-98.0 N ABG TYPE (test code = TYPEA) Arterial FIO2 (test code = FIO2A) 100.0 ABG SITE (test code = SITEA) Lt RADIAL ARTERY MODIFIED ALLENS (test code = MODALL) Yes CHECK PERFORMED HEMATOCRIT (test code = HCT/ABG) 38 % 42-52 L TOTAL HGB (test code = THB) 13.0 gram/dL 13.0-17.5 N HGB O2 SAT (test code = HBOSAT) 96.1 % 94.00-98.00 N CARBOXYHEMOGLOBIN (test code = HOHGBT) 0.3 %totalHg 0.5-1.5 LL Results called to and read back by Ramy 21:57 - 02/21/2019; by MATTHEW METHEMOGLOBIN (test code = METHGB) 0.4 % 0.0-1.50 N O2 CONTENT (test code = O2CT) 17.7 % vol 18.0-22.0 L CBC W/MANUAL [id number] 22:38:00* Test Item Value Reference Range Interpretation Comments WHITE BLOOD CELL (test code = WBC) 23.6 K/mm3 4.5-12.5 H RED BLOOD CELL (test code = RBC) 3.49 mill/mm3 4.0-5.8 L HEMOGLOBIN (test code = HGB) 9.9 gram/dL 13.0-17.5 L HEMATOCRIT (test code = HCT) 29.1 % 42.0-52.0 L MEAN CELL VOLUME (test code = MCV) 83.4 fL 80-98 N MEAN CELL HGB (test code = MCH) 28.4 picogram 27.0-33.0 N MEAN CELL HGB CONCETRATION (test code = MCHC) 34.0 gram/dL 33.0-36. 0 N RED CELL DISTRIBUTION WIDTH (test code = RDW) 12.5 % 11.6-16. 2 N RED CELL DISTRIBUTION WIDTH SD (test code = RDW-SD) 38.0 fL 37 .0-51.0 N PLATELET COUNT (test code = PLT) 318 K/mm3 150-450 N MEAN PLATELET VOLUME (test code = MPV) 11.1 fL 6.7-11.0 H IMMATURE GRANULOCYTE % (test code = IG%) 2.0 % 0.0-5.0 N NUCLEATED RBC % (test code = NRBC%) 0.0 % 0-0 N NEUTROPHIL # (test code = NT#) 21.80 K/mm3 1.8-7.7 H IMMATURE GRANULOCYTE # (test code = IG#) 0.48 x10 3/uL 0-0.03 H LYMPHOCYTE # (test code = LY#) 0.45 K/mm3 1.0-5.0 L MONOCYTE # (test code = MO#) 0.73 K/mm3 0-0.8 N EOSINOPHIL # (test code = EO#) 0.00 K/mm3 0.0-0.5 N BASOPHIL # (test code = BA#) 0.09 K/mm3 0.0-0.2 N NUCLEATED RBC # (test code = NRBC#) 0.00 K/mm3 0.0-0.1 N MANUAL DIFF REQUIRED (test code = MDIFF) YES STAIN ACCEPTABILITY (test code = STN ACCEPTABLE) STAIN ACCEPTABLE TOTAL CELLS COUNTED (test code = TCC) 115 #CELLS SEGMENTED NEUTROPHILS (test code = SEG) 92.9 % 39-69 H BAND NEUTROPHIL (test code = BAND) 0.4 % 0-10 N LYMPHOCYTE (test code = LYMPH) 1.8 % 25-55 L REACTIVE LYMPH (test code = RELYMPH) 0 % MONOCYTE (test code = MON) 4.0 % 0-10 N EOSINOPHIL (test code = EOS) 0 % 0.0-5.0 N BASOPHIL (test code = BASO) 0.9 % 0-1.0 N METAMYELOCYTE (test code = META) 0 % 0-0 N MYELOCYTE (test code = MYELO) 0 % 0.0-0.0 N PROMYELOCYTE (test code = PROM) 0 % 0-0 N POLYCHROMASIA (test code = POLC) 1+ HYPOCHROMIA (test code = HYPO) 1+ POIKILOCYTOSIS (test code = POIK) 2+ MACROCYTOSIS (test code = MACR) 1+ CRENATED CELLS (test code = CREN) 1+ OVALOCYTES (test code = OVAL) 1+ PLATELET ESTIMATE (test code = PLTEST) ADEQUATE PLATELET MORPHOLOGY (test code = PLTMORPH) NORMAL IMMATURE FORMS (test code = IMMAT) 0 % 0-0 N [id number] 22:13:00* Test Item Value Reference Range Interpretation Comments TROPONIN-I (test code = TROPI) 0.860 ng/mL 0-0.045 HH Results called to [id number] by [facility] 02/21/19 2213Critical results verified and read back by Nurse? Y LACTIC [id number] 22:13:00* Test Item Value Reference Range Interpretation Comments LACTIC ACID (test code = LACT) 2.9 mmol/L 0.4-1.9 HH Results called to [id number] by [facility] 02/21/19 2213Critical results verified and read back by Nurse? Y BASIC METABOLIC [id number] 22:02:00* Test Item Value Reference Range Interpretation Comments SODIUM (test code = NA) 132 mmol/L 136-145 L POTASSIUM (test code = K) 3.7 mmol/L 3.5-5.1 N CHLORIDE (test code = CL) 95.0 mmol/L 98-107 L CARBON DIOXIDE (test code = CO2) 24.0 mmol/L 21-32 N ANION GAP (test code = GAP) 16.7 10-20 N GLUCOSE (test code = GLU) 337 mg/dL 74-106 H BLOOD UREA NITROGEN (test code = BUN) 61 mg/dL 7-18 H GLOMERULAR FILTRATION RATE (test code = GFR) 19 mL/min >=60 Estimated GFR by using Modified MDRD formula.Chronic kidney disease is defined as either kidney damageor GFR <60 mL/min/1.73 m2 for >3 months. CREATININE (test code = CREAT) 3.30 mg/dL 0.7-1.3 H BUN/CREATININE RATIO (test code = BUN/CREA) 18.7 10-20 N CALCIUM (test code = CA) 7.5 mg/dL 8.5-10.1 L [id number] 22:02:00* Test Item Value Reference Range Interpretation Comments PHOSPHORUS (test code = PHOS) 2.8 mg/dL 2.5-4.9 N [id number] 22:02:00* Test Item Value Reference Range Interpretation Comments MAGNESIUM (test code = MAG) 1.9 mg/dL 1.8-2.4 N BASIC METABOLIC [id number] 21:59:00* Test Item Value Reference Range Interpretation Comments SODIUM (test code = NA) 132 mmol/L 136-145 L POTASSIUM (test code = K) 3.7 mmol/L 3.5-5.1 N CHLORIDE (test code = CL) 95.0 mmol/L 98-107 L CARBON DIOXIDE (test code = CO2) mmol/L 21-32 ANION GAP (test code = GAP) 10-20 GLUCOSE (test code = GLU) mg/dL 74-106 BLOOD UREA NITROGEN (test code = BUN) mg/dL 7-18 GLOMERULAR FILTRATION RATE (test code = GFR) mL/min >=60 CREATININE (test code = CREAT) mg/dL 0.7-1.3 BUN/CREATININE RATIO (test code = BUN/CREA) 10-20 CALCIUM (test code = CA) mg/dL 8.5-10.1 [id number] 21:59:00* Test Item Value Reference Range Interpretation Comments PHOSPHORUS (test code = PHOS) mg/dL 2.5-4.9 [id number] 21:59:00* Test Item Value Reference Range Interpretation Comments MAGNESIUM (test code = MAG) mg/dL 1.8-2.4 CBC W/MANUAL [id number] 21:52:00* Test Item Value Reference Range Interpretation Comments WHITE BLOOD CELL (test code = WBC) 23.6 K/mm3 4.5-12.5 H RED BLOOD CELL (test code = RBC) 3.49 mill/mm3 4.0-5.8 L HEMOGLOBIN (test code = HGB) 9.9 gram/dL 13.0-17.5 L HEMATOCRIT (test code = HCT) 29.1 % 42.0-52.0 L MEAN CELL VOLUME (test code = MCV) 83.4 fL 80-98 N MEAN CELL HGB (test code = MCH) 28.4 picogram 27.0-33.0 N MEAN CELL HGB CONCETRATION (test code = MCHC) 34.0 gram/dL 33.0-36. 0 N RED CELL DISTRIBUTION WIDTH (test code = RDW) 12.5 % 11.6-16. 2 N RED CELL DISTRIBUTION WIDTH SD (test code = RDW-SD) 38.0 fL 37 .0-51.0 N PLATELET COUNT (test code = PLT) 318 K/mm3 150-450 N MEAN PLATELET VOLUME (test code = MPV) 11.1 fL 6.7-11.0 H IMMATURE GRANULOCYTE % (test code = IG%) 2.0 % 0.0-5.0 N NUCLEATED RBC % (test code = NRBC%) 0.0 % 0-0 N NEUTROPHIL # (test code = NT#) 21.80 K/mm3 1.8-7.7 H IMMATURE GRANULOCYTE # (test code = IG#) 0.48 x10 3/uL 0-0.03 H LYMPHOCYTE # (test code = LY#) 0.45 K/mm3 1.0-5.0 L MONOCYTE # (test code = MO#) 0.73 K/mm3 0-0.8 N EOSINOPHIL # (test code = EO#) 0.00 K/mm3 0.0-0.5 N BASOPHIL # (test code = BA#) 0.09 K/mm3 0.0-0.2 N NUCLEATED RBC # (test code = NRBC#) 0.00 K/mm3 0.0-0.1 N MANUAL DIFF REQUIRED (test code = MDIFF) YES STAIN ACCEPTABILITY (test code = STN ACCEPTABLE) TOTAL CELLS COUNTED (test code = TCC) #CELLS SEGMENTED NEUTROPHILS (test code = SEG) % 39-69 LYMPHOCYTE (test code = LYMPH) % 25-55 MONOCYTE (test code = MON) % 0-10 MORPHOLOGY COMMENT (test code = MOC) PLATELET ESTIMATE (test code = PLTEST) PLATELET MORPHOLOGY (test code = PLTMORPH) CBC W/MANUAL [id number] 21:48:00* Test Item Value Reference Range Interpretation Comments WHITE BLOOD CELL (test code = WBC) 23.6 K/mm3 4.5-12.5 H RED BLOOD CELL (test code = RBC) 3.49 mill/mm3 4.0-5.8 L HEMOGLOBIN (test code = HGB) 9.9 gram/dL 13.0-17.5 L HEMATOCRIT (test code = HCT) 29.1 % 42.0-52.0 L MEAN CELL VOLUME (test code = MCV) 83.4 fL 80-98 N MEAN CELL HGB (test code = MCH) 28.4 picogram 27.0-33.0 N MEAN CELL HGB CONCETRATION (test code = MCHC) 34.0 gram/dL 33.0-36. 0 N RED CELL DISTRIBUTION WIDTH (test code = RDW) 12.5 % 11.6-16. 2 N RED CELL DISTRIBUTION WIDTH SD (test code = RDW-SD) 38.0 fL 37 .0-51.0 N PLATELET COUNT (test code = PLT) 318 K/mm3 150-450 N MEAN PLATELET VOLUME (test code = MPV) 11.1 fL 6.7-11.0 H IMMATURE GRANULOCYTE % (test code = IG%) 2.0 % 0.0-5.0 N NUCLEATED RBC % (test code = NRBC%) 0.0 % 0-0 N NEUTROPHIL # (test code = NT#) 21.80 K/mm3 1.8-7.7 H IMMATURE GRANULOCYTE # (test code = IG#) 0.48 x10 3/uL 0-0.03 H LYMPHOCYTE # (test code = LY#) 0.45 K/mm3 1.0-5.0 L MONOCYTE # (test code = MO#) 0.73 K/mm3 0-0.8 N EOSINOPHIL # (test code = EO#) 0.00 K/mm3 0.0-0.5 N BASOPHIL # (test code = BA#) 0.09 K/mm3 0.0-0.2 N NUCLEATED RBC # (test code = NRBC#) 0.00 K/mm3 0.0-0.1 N MANUAL DIFF REQUIRED (test code = MDIFF) YES STAIN ACCEPTABILITY (test code = STN ACCEPTABLE) TOTAL CELLS COUNTED (test code = TCC) #CELLS SEGMENTED NEUTROPHILS (test code = SEG) % 39-69 LYMPHOCYTE (test code = LYMPH) % 25-55 MONOCYTE (test code = MON) % 0-10 EOSINOPHIL (test code = EOS) % 0.0-5.0 CABOT RINGS (test code = CAB) MORPHOLOGY COMMENT (test code = MOC) PLATELET ESTIMATE (test code = PLTEST) PLATELET MORPHOLOGY (test code = PLTMORPH) CBC W/MANUAL [id number] 21:48:00* Test Item Value Reference Range Interpretation Comments WHITE BLOOD CELL (test code = WBC) 23.6 K/mm3 4.5-12.5 H RED BLOOD CELL (test code = RBC) 3.49 mill/mm3 4.0-5.8 L HEMOGLOBIN (test code = HGB) 9.9 gram/dL 13.0-17.5 L HEMATOCRIT (test code = HCT) 29.1 % 42.0-52.0 L MEAN CELL VOLUME (test code = MCV) 83.4 fL 80-98 N MEAN CELL HGB (test code = MCH) 28.4 picogram 27.0-33.0 N MEAN CELL HGB CONCETRATION (test code = MCHC) 34.0 gram/dL 33.0-36. 0 N RED CELL DISTRIBUTION WIDTH (test code = RDW) 12.5 % 11.6-16. 2 N RED CELL DISTRIBUTION WIDTH SD (test code = RDW-SD) 38.0 fL 37 .0-51.0 N PLATELET COUNT (test code = PLT) 318 K/mm3 150-450 N MEAN PLATELET VOLUME (test code = MPV) 11.1 fL 6.7-11.0 H IMMATURE GRANULOCYTE % (test code = IG%) 2.0 % 0.0-5.0 N NUCLEATED RBC % (test code = NRBC%) 0.0 % 0-0 N NEUTROPHIL # (test code = NT#) 21.80 K/mm3 1.8-7.7 H IMMATURE GRANULOCYTE # (test code = IG#) 0.48 x10 3/uL 0-0.03 H LYMPHOCYTE # (test code = LY#) 0.45 K/mm3 1.0-5.0 L MONOCYTE # (test code = MO#) 0.73 K/mm3 0-0.8 N EOSINOPHIL # (test code = EO#) 0.00 K/mm3 0.0-0.5 N BASOPHIL # (test code = BA#) 0.09 K/mm3 0.0-0.2 N NUCLEATED RBC # (test code = NRBC#) 0.00 K/mm3 0.0-0.1 N MANUAL DIFF REQUIRED (test code = MDIFF) YES STAIN ACCEPTABILITY (test code = STN ACCEPTABLE) TOTAL CELLS COUNTED (test code = TCC) #CELLS SEGMENTED NEUTROPHILS (test code = SEG) % 39-69 LYMPHOCYTE (test code = LYMPH) % 25-55 MONOCYTE (test code = MON) % 0-10 EOSINOPHIL (test code = EOS) % 0.0-5.0 CABOT RINGS (test code = CAB) MORPHOLOGY COMMENT (test code = MOC) PLATELET ESTIMATE (test code = PLTEST) PLATELET MORPHOLOGY (test code = PLTMORPH) CBC W/MANUAL [id number] 21:48:00* Test Item Value Reference Range Interpretation Comments WHITE BLOOD CELL (test code = WBC) 23.6 K/mm3 4.5-12.5 H RED BLOOD CELL (test code = RBC) 3.49 mill/mm3 4.0-5.8 L HEMOGLOBIN (test code = HGB) 9.9 gram/dL 13.0-17.5 L HEMATOCRIT (test code = HCT) 29.1 % 42.0-52.0 L MEAN CELL VOLUME (test code = MCV) 83.4 fL 80-98 N MEAN CELL HGB (test code = MCH) 28.4 picogram 27.0-33.0 N MEAN CELL HGB CONCETRATION (test code = MCHC) 34.0 gram/dL 33.0-36. 0 N RED CELL DISTRIBUTION WIDTH (test code = RDW) 12.5 % 11.6-16. 2 N RED CELL DISTRIBUTION WIDTH SD (test code = RDW-SD) 38.0 fL 37 .0-51.0 N PLATELET COUNT (test code = PLT) 318 K/mm3 150-450 N MEAN PLATELET VOLUME (test code = MPV) 11.1 fL 6.7-11.0 H IMMATURE GRANULOCYTE % (test code = IG%) 2.0 % 0.0-5.0 N NUCLEATED RBC % (test code = NRBC%) 0.0 % 0-0 N NEUTROPHIL # (test code = NT#) 21.80 K/mm3 1.8-7.7 H IMMATURE GRANULOCYTE # (test code = IG#) 0.48 x10 3/uL 0-0.03 H LYMPHOCYTE # (test code = LY#) 0.45 K/mm3 1.0-5.0 L MONOCYTE # (test code = MO#) 0.73 K/mm3 0-0.8 N EOSINOPHIL # (test code = EO#) 0.00 K/mm3 0.0-0.5 N BASOPHIL # (test code = BA#) 0.09 K/mm3 0.0-0.2 N NUCLEATED RBC # (test code = NRBC#) 0.00 K/mm3 0.0-0.1 N MANUAL DIFF REQUIRED (test code = MDIFF) YES STAIN ACCEPTABILITY (test code = STN ACCEPTABLE) TOTAL CELLS COUNTED (test code = TCC) #CELLS SEGMENTED NEUTROPHILS (test code = SEG) % 39-69 LYMPHOCYTE (test code = LYMPH) % 25-55 MONOCYTE (test code = MON) % 0-10 EOSINOPHIL (test code = EOS) % 0.0-5.0 MORPHOLOGY COMMENT (test code = MOC) PLATELET ESTIMATE (test code = PLTEST) PLATELET MORPHOLOGY (test code = PLTMORPH) CBC W/MANUAL [id number] 21:48:00* Test Item Value Reference Range Interpretation Comments WHITE BLOOD CELL (test code = WBC) 23.6 K/mm3 4.5-12.5 H RED BLOOD CELL (test code = RBC) 3.49 mill/mm3 4.0-5.8 L HEMOGLOBIN (test code = HGB) 9.9 gram/dL 13.0-17.5 L HEMATOCRIT (test code = HCT) 29.1 % 42.0-52.0 L MEAN CELL VOLUME (test code = MCV) 83.4 fL 80-98 N MEAN CELL HGB (test code = MCH) 28.4 picogram 27.0-33.0 N MEAN CELL HGB CONCETRATION (test code = MCHC) 34.0 gram/dL 33.0-36. 0 N RED CELL DISTRIBUTION WIDTH (test code = RDW) 12.5 % 11.6-16. 2 N RED CELL DISTRIBUTION WIDTH SD (test code = RDW-SD) 38.0 fL 37 .0-51.0 N PLATELET COUNT (test code = PLT) 318 K/mm3 150-450 N MEAN PLATELET VOLUME (test code = MPV) 11.1 fL 6.7-11.0 H IMMATURE GRANULOCYTE % (test code = IG%) 2.0 % 0.0-5.0 N NUCLEATED RBC % (test code = NRBC%) 0.0 % 0-0 N NEUTROPHIL # (test code = NT#) 21.80 K/mm3 1.8-7.7 H IMMATURE GRANULOCYTE # (test code = IG#) 0.48 x10 3/uL 0-0.03 H LYMPHOCYTE # (test code = LY#) 0.45 K/mm3 1.0-5.0 L MONOCYTE # (test code = MO#) 0.73 K/mm3 0-0.8 N EOSINOPHIL # (test code = EO#) 0.00 K/mm3 0.0-0.5 N BASOPHIL # (test code = BA#) 0.09 K/mm3 0.0-0.2 N NUCLEATED RBC # (test code = NRBC#) 0.00 K/mm3 0.0-0.1 N MANUAL DIFF REQUIRED (test code = MDIFF) YES STAIN ACCEPTABILITY (test code = STN ACCEPTABLE) TOTAL CELLS COUNTED (test code = TCC) #CELLS SEGMENTED NEUTROPHILS (test code = SEG) % 39-69 LYMPHOCYTE (test code = LYMPH) % 25-55 MONOCYTE (test code = MON) % 0-10 EOSINOPHIL (test code = EOS) % 0.0-5.0 CABOT RINGS (test code = CAB) MORPHOLOGY COMMENT (test code = MOC) PLATELET ESTIMATE (test code = PLTEST) PLATELET MORPHOLOGY (test code = PLTMORPH) [id number] 21:43:00* Test Item Value Reference Range Interpretation Comments GLUBED (test code = GLUBED) 335 mg/dL 74-106 H Performed by certified basin operator at [facility] ([facility]) - XR CHEST 1 [id number] 21:40:00 FAX: Kim Maier MD [phone] [place]: St: ADM Name: TORRES CAN [facility] : [birth year] Age/S: 58/M [address] [facility] Unit #: [id number] Loc: [place] [place] [address] Phys: Kim Hopkins MD Acct: [id number] Dis Date: Status: ADM IN PHONE #: [phone] Exam Date: 02/21/20192135 FAX #: [phone] Reason: LOW O2 SATURATION EXAMS: CPT CODE: [id number] XR CHEST 1 V 42715 REASON FOR EXAM: LOW O2 SA TURATION [...] of the r ight upper lobe at 214 Reported and signed by: Bala Jimenez M.D. CC: Kim Hopkins MD Technolog ist: RT DARNELL(R) Trnscrd Date/Time/By : 02/21/2019 (2139) : By: Bernie Orig Print D/T: S: 02/21/2019 (214 3) PAGE 1 Signed Report [id number] 19:43:00* Test Item Value Reference Range Interpretation Comments GLUBED (test code = GLUBED) 296 mg/dL 74-106 H Performed by certified basin operator at [facility]) [id number] 18:36:00* Test Item Value Reference Range Interpretation Comments GLUBED (test code = GLUBED) 307 mg/dL 74-106 H Performed by certified basin operator at [facility]) [id number] 16:25:00* Test Item Value Reference Range Interpretation Comments GLUBED (test code = GLUBED) 214 mg/dL 74-106 H Performed by certified basin operator at [facility]) - MRI LOW EXT W/O CONT [id number] 14:39:00 FAX: Ml Fan MSN [place]: St: ADM FAX: Kim Maier MD [phone] Name: TORRES MAI [facility] : 1960 Age/S: 58/M [address] [facility] Unit #: [id number] Loc: [address] [place] [address] Phys: Ml Fan MSN Acct: [id number] Dis Date: Status: ADM IN PHONE #: [phone] Exam Date: 02/21/2019 1153 FAX #: [phone] Reason: OM EXAMS: CPT CODE: [id number] MRI LOW EXT W/[place] [address] HISTORY: Soft tissue infection, gangrene TECHNIQUE: Sagittal [...] signed by: Ken Marie MD CC: Ml Fan; Kim Hopkins MD echnologist: Alexandro Blank(R)(MR) Trnscrd Date /Time/By: 02/21/2019 (0014) : By: [email or web address] Orig Print D/T: S: 019 (0128) PAGE 1 Signed Report [id number] 13:52:00* Test Item Value Reference Range Interpretation Comments GLUBED (test code = GLUBED) 321 mg/dL 74-106 H Performed by certified basin operator at [facility]) [id number] 13:22:00* Test Item Value Reference Range Interpretation Comments PHOSPHORUS (test code = PHOS) 2.5 mg/dL 2.5-4.9 N [id number] 08:23:00* Test Item Value Reference Range Interpretation Comments GLUBED (test code = GLUBED) 362 mg/dL 74-106 H Performed by certified basin operator at [facility]) B-TYPE NATRIURETIC [id number] 06:31:00* Test Item Value Reference Range Interpretation Comments B-TYPE NATRIURETIC PEPTIDE (test code = BNP) 1246.33 pgram/mL 0-100 H COMPREHENSIVE METABOLIC [id number] 06:16:00* Test Item Value Reference Range Interpretation Comments SODIUM (test code = NA) 129 mmol/L 136-145 L POTASSIUM (test code = K) 3.2 mmol/L 3.5-5.1 L CHLORIDE (test code = CL) 96.0 mmol/L 98-107 L CARBON DIOXIDE (test code = CO2) 20.0 mmol/L 21-32 L ANION GAP (test code = GAP) 16.2 10-20 N GLUCOSE (test code = GLU) 313 mg/dL 74-106 H BLOOD UREA NITROGEN (test code = BUN) 67 mg/dL 7-18 H GLOMERULAR FILTRATION RATE (test code = GFR) 21 mL/min >=60 Estimated GFR by using Modified MDRD formula.Chronic kidney disease is defined as either kidney damageor GFR <60 mL/min/1.73 m2 for >3 months. CREATININE (test code = CREAT) 3.10 mg/dL 0.7-1.3 H BUN/CREATININE RATIO (test code = BUN/CREA) 21.6 10-20 H TOTAL PROTEIN (test code = PROT) 6.5 gram/dL 6.4-8.2 N ALBUMIN (test code = ALB) 2.0 g/dL 3.4-5.0 L GLOBULIN (test code = GLOB) 4.5 gram/dL 2.7-4.2 H ALBUMIN/GLOBULIN RATIO (test code = A/G) 0.4 0.75-1.50 L CALCIUM (test code = CA) 7.5 mg/dL 8.5-10.1 L BILIRUBIN TOTAL (test code = BILT) 0.40 mg/dL 0.0-1.0 N SGOT/AST (test code = AST) 143 IUnit/L 15-37 H SGPT/ALT (test code = ALT) 149 IUnit/L 12-78 H ALKALINE PHOSPHATASE TOTAL (test code = ALKP) 151 IUnit/L 45-117 H Note change in reference range due to change in reagent. [id number] 06:16:00* Test Item Value Reference Range Interpretation Comments PHOSPHORUS (test code = PHOS) 2.8 mg/dL 2.5-4.9 N [id number] 06:16:00* Test Item Value Reference Range Interpretation Comments MAGNESIUM (test code = MAG) 2.0 mg/dL 1.8-2.4 N COMPREHENSIVE METABOLIC [id number] 06:06:00* Test Item Value Reference Range Interpretation Comments SODIUM (test code = NA) 129 mmol/L 136-145 L POTASSIUM (test code = K) 3.2 mmol/L 3.5-5.1 L CHLORIDE (test code = CL) 96.0 mmol/L 98-107 L CARBON DIOXIDE (test code = CO2) mmol/L 21-32 ANION GAP (test code = GAP) 10-20 GLUCOSE (test code = GLU) mg/dL 74-106 BLOOD UREA NITROGEN (test code = BUN) mg/dL 7-18 GLOMERULAR FILTRATION RATE (test code = GFR) mL/min >=60 CREATININE (test code = CREAT) mg/dL 0.7-1.3 BUN/CREATININE RATIO (test code = BUN/CREA) 10-20 TOTAL PROTEIN (test code = PROT) gram/dL 6.4-8.2 ALBUMIN (test code = ALB) g/dL 3.4-5.0 GLOBULIN (test code = GLOB) gram/dL 2.7-4.2 ALBUMIN/GLOBULIN RATIO (test code = A/G) 0.75-1.50 CALCIUM (test code = CA) mg/dL 8.5-10.1 BILIRUBIN TOTAL (test code = BILT) mg/dL 0.0-1.0 SGOT/AST (test code = AST) IUnit/L 15-37 SGPT/ALT (test code = ALT) IUnit/L 12-78 ALKALINE PHOSPHATASE TOTAL (test code = ALKP) IUnit/L 45-117 [id number] 06:06:00* Test Item Value Reference Range Interpretation Comments PHOSPHORUS (test code = PHOS) mg/dL 2.5-4.9 [id number] 06:06:00* Test Item Value Reference Range Interpretation Comments MAGNESIUM (test code = MAG) mg/dL 1.8-2.4 CBC W/AUTO [id number] 05:42:00* Test Item Value Reference Range Interpretation Comments WHITE BLOOD CELL (test code = WBC) 19.5 K/mm3 4.5-12.5 H RED BLOOD CELL (test code = RBC) 3.17 mill/mm3 4.0-5.8 L HEMOGLOBIN (test code = HGB) 9.0 gram/dL 13.0-17.5 L HEMATOCRIT (test code = HCT) 26.1 % 42.0-52.0 L MEAN CELL VOLUME (test code = MCV) 82.3 fL 80-98 N MEAN CELL HGB (test code = MCH) 28.4 picogram 27.0-33.0 N MEAN CELL HGB CONCETRATION (test code = MCHC) 34.5 gram/dL 33.0-36. 0 N RED CELL DISTRIBUTION WIDTH (test code = RDW) 12.3 % 11.6-16. 2 N RED CELL DISTRIBUTION WIDTH SD (test code = RDW-SD) 37.4 fL 37 .0-51.0 N PLATELET COUNT (test code = PLT) 298 K/mm3 150-450 N MEAN PLATELET VOLUME (test code = MPV) 11.2 fL 6.7-11.0 H NEUTROPHIL % (test code = NT%) 88.7 % 39.0-69.0 H IMMATURE GRANULOCYTE % (test code = IG%) 1.7 % 0.0-5.0 N LYMPHOCYTE % (test code = LY%) 4.1 % 25.0-55.0 L MONOCYTE % (test code = MO%) 5.2 % 0.0-10.0 N EOSINOPHIL % (test code = EO%) 0.0 % 0.0-5.0 N BASOPHIL % (test code = BA%) 0.3 % 0.0-1.0 N NUCLEATED RBC % (test code = NRBC%) 0.0 % 0-0 N NEUTROPHIL # (test code = NT#) 17.29 K/mm3 1.8-7.7 H IMMATURE GRANULOCYTE # (test code = IG#) 0.34 x10 3/uL 0-0.03 H LYMPHOCYTE # (test code = LY#) 0.79 K/mm3 1.0-5.0 L MONOCYTE # (test code = MO#) 1.02 K/mm3 0-0.8 H EOSINOPHIL # (test code = EO#) 0.00 K/mm3 0.0-0.5 N BASOPHIL # (test code = BA#) 0.05 K/mm3 0.0-0.2 N NUCLEATED RBC # (test code = NRBC#) 0.00 K/mm3 0.0-0.1 N [id number] 21:32:00* Test Item Value Reference Range Interpretation Comments GLUBED (test code = GLUBED) 258 mg/dL 74-106 H Performed by certified basin operator at [facility] [id number] 16:34:00* Test Item Value Reference Range Interpretation Comments GLUBED (test code = GLUBED) 210 mg/dL 74-106 H Performed by certified basin operator at [facility]) URIC [id number] 12:53:00* Test Item Value Reference Range Interpretation Comments URIC ACID (test code = URIC) 10.9 mg/dL 2.6-7.2 H PARATHYROID HORMONE [id number] 12:53:00* Test Item Value Reference Range Interpretation Comments PARATHYROID HORMONE INTACT (test code = PARAI) 95.20 pgram/mL 8.4-8 8 H URIC [id number] 12:34:00* Test Item Value Reference Range Interpretation Comments URIC ACID (test code = URIC) 10.9 mg/dL 2.6-7.2 H PARATHYROID HORMONE [id number] 12:34:00* Test Item Value Reference Range Interpretation Comments PARATHYROID HORMONE INTACT (test code = PARAI) pgram/mL 8.4-88 [id number] 12:15:00* Test Item Value Reference Range Interpretation Comments GLUBED (test code = GLUBED) 327 mg/dL 74-106 H Performed by certified basin operator at [facility] - XR CHEST 1 [id number] 11:32:00 FAX: Kim Maier MD [phone] [place]: B St: ADM FAX: Dago Houston MD [phone] Name: TORRES MAI [facility] : 1960 Age/S: 58/M [address] [facility] Unit #: [id number] Loc: [place] [address] Phys: Dago Gregory MD Acct: [id number] Dis Date: Status: ADM IN PHONE #: [phone] Exam Date: 02/20/2019 1051 FAX #: [phone] Reason: CHF EXAMS: CPT CODE: [id number] XR CHEST 1 V 18918 REASON FOR EXAM: CHF Exam Order Date: 02/20/2019 12:00 AM Ordering M.D.: Dago Gregory MD PROCEDURE: - XR CHEST [...] Hopkins MD; Dago Gregory MD Technologist: NYASIA PINEDA RT(R); Danielle Buenrostro RT(R) Trnscrd Date/Time/By: 2018 (1138) : By: [email or web address] Orig Print D/T: S: 02/20/2019 (5946) PAGE 1 Signed Report [id number] 11:03:00* Test Item Value Reference Range Interpretation Comments GLUBED (test code = GLUBED) 250 mg/dL 74-106 H Performed by certified basin operator at [facility] (Former[facility]) - US RETRO [id number] 10:43:00 Name: TORRES MAI [facility] : 1960 Age/S: 58 / M [address] [facility] Unit #: [id number] Loc: [place] [address] Phys: Dago Gregory MD Acct: [id number] Dis Date: Status: ADM IN PHONE #: [phone] Exam Date: 02/20/2019 1042 FAX #: [phone] Reason: KEKE EXAMS: CPT CODE: [id number] [facility] LTD [id number] REASON FOR EXAM: KEKE EXAM ORDER DATE: 02/20/2019 9:14 AM Attending Lanette: Dago Gregory MD PROCEDURE: - US RETRO [...] 1 Signed Report (CONTINUED) Name: TORRES MAI [facility] : 1960 Age/S: 58 / M [address] [facility] Unit #: [id number] Loc: [facility] [place] [address] Phys: Dago Gregory MD Acct: [id number] Dis Date: Status: ADM IN PHONE #: [phone] Exam Date: 02/20/2019 1042 FAX #: [phone] Reason: KEKE EXAMS: CPT CODE: [id number] [facility] [address] < Continued> CC: Kim Hopkins MD; Dago Gregory MD Technologist: TASH HOWARD RT(R),RDTN Trngab Date/Time: 02/20/2019 (1043) [email or web address] Orig Print D/T: S: 02/20/2019 (1043) Probe: PAGE 2 Signed Report URINALYSIS [id number] 07:02:00* Test Item Value Reference Range Interpretation Comments UA COLOR (test code = COLU) YELLOW YELLOW UA APPEARANCE (test code = APPU) Cloudy CLEAR A UA GLUCOSE DIPSTICK (test code = DGLUU) 50 (Trace) mg/dL NEGATIVE A UA BILIRUBIN DIPSTICK (test code = BILU) NEGATIVE mg/dL NEGATIVE UA KETONE DIPSTICK (test code = KETU) NEGATIVE mg/dL NEGATIVE UA SPECIFIC GRAVITY (test code = SGU) 1.014 1.001-1.035 UA BLOOD DIPSTICK (test code = DAYNA) Negative mg/dL NEGATIVE UA PH DIPSTICK (test code = EMILIANA) 5.5 5.0-8.0 UA PROTEIN DIPSTICK (test code = PROU) 100 (2+) mg/dL NEGATIVE A UA UROBILINIOGEN DIPSTICK (test code = URO) Normal mg/dL NEGATIVE UA NITRITE DIPSTICK (test code = GERI) NEGATIVE NEGATIVE UA LEUKOCYTE ESTERASE W REFLEX (test code = LEUUR) NEGATIVE Heidi/uL NEGATIVE UA WBC (test code = WBCU) 6-10 per HPF 0-5 A UA RBC (test code = RBCU) 0-2 #/HPF 0-5 UA EPITHELIAL CELLS (test code = EPIU) FEW per HPF FEW UA BACTERIA (test code = BACU) MANY #/HPF NONE A UA HYALINE CAST (test code = HYALU) 3-5 #/LPF 0-5 Urine Source? [facility] NA,[id number] 07:02:00* Test Item Value Reference Range Interpretation Comments UR NA,RANDOM (test code = ELADIA) 13 mmol/L 20-110 L Urine Source? [facility] CHLORIDE [id number] 07:02:00* Test Item Value Reference Range Interpretation Comments UR CHLORIDE RANDOM (test code = CLU) < 10 mEq/L Urine Source? [facility] OSMOLALITY [id number] 07:02:00* Test Item Value Reference Range Interpretation Comments UR OSMOLALITY RANDOM (test code = OSMOU) 357 mOsm/kg 48-962 N Urine Source? Clean CatchURINALYSIS [id number] 05:53:00* Test Item Value Reference Range Interpretation Comments UA COLOR (test code = COLU) YELLOW YELLOW UA APPEARANCE (test code = APPU) Cloudy CLEAR A UA GLUCOSE DIPSTICK (test code = DGLUU) 50 (Trace) mg/dL NEGATIVE A UA BILIRUBIN DIPSTICK (test code = BILU) NEGATIVE mg/dL NEGATIVE UA KETONE DIPSTICK (test code = KETU) NEGATIVE mg/dL NEGATIVE UA SPECIFIC GRAVITY (test code = SGU) 1.014 1.001-1.035 UA BLOOD DIPSTICK (test code = DAYNA) Negative mg/dL NEGATIVE UA PH DIPSTICK (test code = EMILIANA) 5.5 5.0-8.0 UA PROTEIN DIPSTICK (test code = PROU) 100 (2+) mg/dL NEGATIVE A UA UROBILINIOGEN DIPSTICK (test code = URO) Normal mg/dL NEGATIVE UA NITRITE DIPSTICK (test code = GERI) NEGATIVE NEGATIVE UA LEUKOCYTE ESTERASE W REFLEX (test code = LEUUR) NEGATIVE Heidi/uL NEGATIVE UA WBC (test code = WBCU) 6-10 per HPF 0-5 A UA RBC (test code = RBCU) 0-2 #/HPF 0-5 UA EPITHELIAL CELLS (test code = EPIU) FEW per HPF FEW UA BACTERIA (test code = BACU) MANY #/HPF NONE A UA HYALINE CAST (test code = HYALU) 3-5 #/LPF 0-5 Urine Source? [employer] NA,[id number] 05:53:00* Test Item Value Reference Range Interpretation Comments UR NA,RANDOM (test code = ELADIA) 13 mmol/L 20-110 L Urine Source? [employer] [facility] CHLORIDE [id number] 05:53:00* Test Item Value Reference Range Interpretation Comments UR CHLORIDE RANDOM (test code = CLU) < 10 mEq/L Urine Source? Clean CatchUR OSMOLALITY [id number] 05:53:00* Test Item Value Reference Range Interpretation Comments UR OSMOLALITY RANDOM (test code = OSMOU) mOsm/kg 48-962 Urine Source? Clean CatchURINALYSIS [id number] 05:44:00* Test Item Value Reference Range Interpretation Comments UA COLOR (test code = COLU) YELLOW YELLOW UA APPEARANCE (test code = APPU) Cloudy CLEAR A UA GLUCOSE DIPSTICK (test code = DGLUU) 50 (Trace) mg/dL NEGATIVE A UA BILIRUBIN DIPSTICK (test code = BILU) NEGATIVE mg/dL NEGATIVE UA KETONE DIPSTICK (test code = KETU) NEGATIVE mg/dL NEGATIVE UA SPECIFIC GRAVITY (test code = SGU) 1.014 1.001-1.035 UA BLOOD DIPSTICK (test code = DAYNA) Negative mg/dL NEGATIVE UA PH DIPSTICK (test code = EMILIANA) 5.5 5.0-8.0 UA PROTEIN DIPSTICK (test code = PROU) 100 (2+) mg/dL NEGATIVE A UA UROBILINIOGEN DIPSTICK (test code = URO) Normal mg/dL NEGATIVE UA NITRITE DIPSTICK (test code = GERI) NEGATIVE NEGATIVE UA LEUKOCYTE ESTERASE W REFLEX (test code = LEUUR) NEGATIVE Heidi/uL NEGATIVE UA WBC (test code = WBCU) 6-10 per HPF 0-5 A UA RBC (test code = RBCU) 0-2 #/HPF 0-5 UA EPITHELIAL CELLS (test code = EPIU) FEW per HPF FEW UA BACTERIA (test code = BACU) MANY #/HPF NONE A UA HYALINE CAST (test code = HYALU) 3-5 #/LPF 0-5 Urine Source? Clean CatchUR NA,[id number] 05:44:00* Test Item Value Reference Range Interpretation Comments UR NA,RANDOM (test code = ELADIA) mmol/L 20-110 Urine Source? Clean CatchUR CHLORIDE [id number] 05:44:00* Test Item Value Reference Range Interpretation Comments UR CHLORIDE RANDOM (test code = CLU) mEq/L Urine Source? Clean CatchUR OSMOLALITY [id number] 05:44:00* Test Item Value Reference Range Interpretation Comments UR OSMOLALITY RANDOM (test code = OSMOU) mOsm/kg 48-962 Urine Source? Clean CatchBASIC METABOLIC [id number] 03:27:00* Test Item Value Reference Range Interpretation Comments SODIUM (test code = NA) 133 mmol/L 136-145 L RESU LT VERIFIED BY REPEAT ANALYSIS POTASSIUM (test code = K) 4.1 mmol/L 3.5-5.1 N CHLORIDE (test code = CL) 100.0 mmol/L 98-107 N CARBON DIOXIDE (test code = CO2) 17.0 mmol/L 21-32 L ANION GAP (test code = GAP) 20.1 10-20 H GLUCOSE (test code = GLU) 232 mg/dL 74-106 H BLOOD UREA NITROGEN (test code = BUN) 85 mg/dL 7-18 H GLOMERULAR FILTRATION RATE (test code = GFR) 17 mL/min >=60 Estimated GFR by using Modified MDRD formula.Chronic kidney disease is defined as either kidney damageor GFR <60 mL/min/1.73 m2 for >3 months. CREATININE (test code = CREAT) 3.70 mg/dL 0.7-1.3 H BUN/CREATININE RATIO (test code = BUN/CREA) 23.1 10-20 H CALCIUM (test code = CA) 7.9 mg/dL 8.5-10.1 L LIPID PROFILE (CORONARY RISK)2019-02-20 03:27:00* Test Item Value Reference Range Interpretation Comments TRIGLYCERIDES (test code = TRIG) 154 mg/dL 20-150 H CHOLESTEROL (test code = CHOL) 108 mg/dL 0-200 N CHOLESTEROL/HDL RATIO (test code = CHOLHDL) 6.0 RATIO 0-4.9 H RISK ASSOCIATED WITH CHOL/HDL RATIOS: Risk Male Female1/2 AVERAGE 3.43 3.27AVERAGE 4.97 4.442X AVERAGE 9.55 7.053X AVERAGE 23.39 11.04 REFERENCE VALUE IS RELATED TO RISK LEVELS ASRECOMMENDED BY THE [facility]. HEART, LUNG, AND BLOOD INST. HDL CHOLESTEROL (test code = HDL) 18 mg/dL 40-60 L LIPOPROTEIN LDL (test code = LDL) 64 mg/dL 100-129 L Reference Interval: mg/dL mmol/L Optimal <100 <2.6Near/above optimal 100-129 2.6- 3.3Borderline High 130-159 3.4-4.1High 160-189 4.1-4.9Very High >=190 >=4.9========= This LDL result is a direct measurement.========= CBC W/MANUAL [id number] 03:19:00* Test Item Value Reference Range Interpretation Comments WHITE BLOOD CELL (test code = WBC) 25.6 K/mm3 4.5-12.5 H RED BLOOD CELL (test code = RBC) 3.44 mill/mm3 4.0-5.8 L HEMOGLOBIN (test code = HGB) 9.8 gram/dL 13.0-17.5 L HEMATOCRIT (test code = HCT) 28.5 % 42.0-52.0 L MEAN CELL VOLUME (test code = MCV) 82.8 fL 80-98 N MEAN CELL HGB (test code = MCH) 28.5 picogram 27.0-33.0 N MEAN CELL HGB CONCETRATION (test code = MCHC) 34.4 gram/dL 33.0-36. 0 N RED CELL DISTRIBUTION WIDTH (test code = RDW) 12.4 % 11.6-16. 2 N RED CELL DISTRIBUTION WIDTH SD (test code = RDW-SD) 37.4 fL 37 .0-51.0 N PLATELET COUNT (test code = PLT) 328 K/mm3 150-450 N MEAN PLATELET VOLUME (test code = MPV) 10.6 fL 6.7-11.0 N IMMATURE GRANULOCYTE % (test code = IG%) 1.9 % 0.0-5.0 N NUCLEATED RBC % (test code = NRBC%) 0.0 % 0-0 N NEUTROPHIL # (test code = NT#) 22.51 K/mm3 1.8-7.7 H IMMATURE GRANULOCYTE # (test code = IG#) 0.49 x10 3/uL 0-0.03 H LYMPHOCYTE # (test code = LY#) 1.06 K/mm3 1.0-5.0 N MONOCYTE # (test code = MO#) 1.45 K/mm3 0-0.8 H EOSINOPHIL # (test code = EO#) 0.00 K/mm3 0.0-0.5 N BASOPHIL # (test code = BA#) 0.08 K/mm3 0.0-0.2 N NUCLEATED RBC # (test code = NRBC#) 0.00 K/mm3 0.0-0.1 N MANUAL DIFF REQUIRED (test code = MDIFF) YES STAIN ACCEPTABILITY (test code = STN ACCEPTABLE) STAIN ACCEPTABLE TOTAL CELLS COUNTED (test code = TCC) 115 #CELLS SEGMENTED NEUTROPHILS (test code = SEG) 90.4 % 39-69 H BAND NEUTROPHIL (test code = BAND) 0 % 0-10 N LYMPHOCYTE (test code = LYMPH) 3.5 % 25-55 L REACTIVE LYMPH (test code = RELYMPH) 0 % MONOCYTE (test code = MON) 6.1 % 0-10 N EOSINOPHIL (test code = EOS) 0 % 0.0-5.0 N BASOPHIL (test code = BASO) 0 % 0-1.0 N METAMYELOCYTE (test code = META) 0 % 0-0 N MYELOCYTE (test code = MYELO) 0 % 0.0-0.0 N PROMYELOCYTE (test code = PROM) 0 % 0-0 N POIKILOCYTOSIS (test code = POIK) 2+ ANISOCYTOSIS (test code = ANISO) 1+ MICROCYTOSIS (test code = MICR) 1+ TORI CELLS (test code = TORI) 2+ NONE PLATELET ESTIMATE (test code = PLTEST) ADEQUATE PLATELET MORPHOLOGY (test code = PLTMORPH) NORMAL IMMATURE FORMS (test code = IMMAT) 0 % 0-0 N CBC W/MANUAL [id number] 02:27:00* Test Item Value Reference Range Interpretation Comments WHITE BLOOD CELL (test code = WBC) 25.6 K/mm3 4.5-12.5 H RED BLOOD CELL (test code = RBC) 3.44 mill/mm3 4.0-5.8 L HEMOGLOBIN (test code = HGB) 9.8 gram/dL 13.0-17.5 L HEMATOCRIT (test code = HCT) 28.5 % 42.0-52.0 L MEAN CELL VOLUME (test code = MCV) 82.8 fL 80-98 N MEAN CELL HGB (test code = MCH) 28.5 picogram 27.0-33.0 N MEAN CELL HGB CONCETRATION (test code = MCHC) 34.4 gram/dL 33.0-36. 0 N RED CELL DISTRIBUTION WIDTH (test code = RDW) 12.4 % 11.6-16. 2 N RED CELL DISTRIBUTION WIDTH SD (test code = RDW-SD) 37.4 fL 37 .0-51.0 N PLATELET COUNT (test code = PLT) 328 K/mm3 150-450 N MEAN PLATELET VOLUME (test code = MPV) 10.6 fL 6.7-11.0 N IMMATURE GRANULOCYTE % (test code = IG%) 1.9 % 0.0-5.0 N NUCLEATED RBC % (test code = NRBC%) 0.0 % 0-0 N NEUTROPHIL # (test code = NT#) 22.51 K/mm3 1.8-7.7 H IMMATURE GRANULOCYTE # (test code = IG#) 0.49 x10 3/uL 0-0.03 H LYMPHOCYTE # (test code = LY#) 1.06 K/mm3 1.0-5.0 N MONOCYTE # (test code = MO#) 1.45 K/mm3 0-0.8 H EOSINOPHIL # (test code = EO#) 0.00 K/mm3 0.0-0.5 N BASOPHIL # (test code = BA#) 0.08 K/mm3 0.0-0.2 N NUCLEATED RBC # (test code = NRBC#) 0.00 K/mm3 0.0-0.1 N MANUAL DIFF REQUIRED (test code = MDIFF) YES STAIN ACCEPTABILITY (test code = STN ACCEPTABLE) TOTAL CELLS COUNTED (test code = TCC) #CELLS SEGMENTED NEUTROPHILS (test code = SEG) % 39-69 LYMPHOCYTE (test code = LYMPH) % 25-55 MONOCYTE (test code = MON) % 0-10 EOSINOPHIL (test code = EOS) % 0.0-5.0 CABOT RINGS (test code = CAB) MORPHOLOGY COMMENT (test code = MOC) PLATELET ESTIMATE (test code = PLTEST) PLATELET MORPHOLOGY (test code = PLTMORPH) CBC W/MANUAL [id number] 02:27:00* Test Item Value Reference Range Interpretation Comments WHITE BLOOD CELL (test code = WBC) 25.6 K/mm3 4.5-12.5 H RED BLOOD CELL (test code = RBC) 3.44 mill/mm3 4.0-5.8 L HEMOGLOBIN (test code = HGB) 9.8 gram/dL 13.0-17.5 L HEMATOCRIT (test code = HCT) 28.5 % 42.0-52.0 L MEAN CELL VOLUME (test code = MCV) 82.8 fL 80-98 N MEAN CELL HGB (test code = MCH) 28.5 picogram 27.0-33.0 N MEAN CELL HGB CONCETRATION (test code = MCHC) 34.4 gram/dL 33.0-36. 0 N RED CELL DISTRIBUTION WIDTH (test code = RDW) 12.4 % 11.6-16. 2 N RED CELL DISTRIBUTION WIDTH SD (test code = RDW-SD) 37.4 fL 37 .0-51.0 N PLATELET COUNT (test code = PLT) 328 K/mm3 150-450 N MEAN PLATELET VOLUME (test code = MPV) 10.6 fL 6.7-11.0 N IMMATURE GRANULOCYTE % (test code = IG%) 1.9 % 0.0-5.0 N NUCLEATED RBC % (test code = NRBC%) 0.0 % 0-0 N NEUTROPHIL # (test code = NT#) 22.51 K/mm3 1.8-7.7 H IMMATURE GRANULOCYTE # (test code = IG#) 0.49 x10 3/uL 0-0.03 H LYMPHOCYTE # (test code = LY#) 1.06 K/mm3 1.0-5.0 N MONOCYTE # (test code = MO#) 1.45 K/mm3 0-0.8 H EOSINOPHIL # (test code = EO#) 0.00 K/mm3 0.0-0.5 N BASOPHIL # (test code = BA#) 0.08 K/mm3 0.0-0.2 N NUCLEATED RBC # (test code = NRBC#) 0.00 K/mm3 0.0-0.1 N MANUAL DIFF REQUIRED (test code = MDIFF) YES STAIN ACCEPTABILITY (test code = STN ACCEPTABLE) TOTAL CELLS COUNTED (test code = TCC) #CELLS SEGMENTED NEUTROPHILS (test code = SEG) % 39-69 LYMPHOCYTE (test code = LYMPH) % 25-55 MONOCYTE (test code = MON) % 0-10 EOSINOPHIL (test code = EOS) % 0.0-5.0 CABOT RINGS (test code = CAB) MORPHOLOGY COMMENT (test code = MOC) PLATELET ESTIMATE (test code = PLTEST) PLATELET MORPHOLOGY (test code = PLTMORPH) CBC W/MANUAL [id number] 02:27:00* Test Item Value Reference Range Interpretation Comments WHITE BLOOD CELL (test code = WBC) 25.6 K/mm3 4.5-12.5 H RED BLOOD CELL (test code = RBC) 3.44 mill/mm3 4.0-5.8 L HEMOGLOBIN (test code = HGB) 9.8 gram/dL 13.0-17.5 L HEMATOCRIT (test code = HCT) 28.5 % 42.0-52.0 L MEAN CELL VOLUME (test code = MCV) 82.8 fL 80-98 N MEAN CELL HGB (test code = MCH) 28.5 picogram 27.0-33.0 N MEAN CELL HGB CONCETRATION (test code = MCHC) 34.4 gram/dL 33.0-36. 0 N RED CELL DISTRIBUTION WIDTH (test code = RDW) 12.4 % 11.6-16. 2 N RED CELL DISTRIBUTION WIDTH SD (test code = RDW-SD) 37.4 fL 37 .0-51.0 N PLATELET COUNT (test code = PLT) 328 K/mm3 150-450 N MEAN PLATELET VOLUME (test code = MPV) 10.6 fL 6.7-11.0 N IMMATURE GRANULOCYTE % (test code = IG%) 1.9 % 0.0-5.0 N NUCLEATED RBC % (test code = NRBC%) 0.0 % 0-0 N NEUTROPHIL # (test code = NT#) 22.51 K/mm3 1.8-7.7 H IMMATURE GRANULOCYTE # (test code = IG#) 0.49 x10 3/uL 0-0.03 H LYMPHOCYTE # (test code = LY#) 1.06 K/mm3 1.0-5.0 N MONOCYTE # (test code = MO#) 1.45 K/mm3 0-0.8 H EOSINOPHIL # (test code = EO#) 0.00 K/mm3 0.0-0.5 N BASOPHIL # (test code = BA#) 0.08 K/mm3 0.0-0.2 N NUCLEATED RBC # (test code = NRBC#) 0.00 K/mm3 0.0-0.1 N MANUAL DIFF REQUIRED (test code = MDIFF) YES STAIN ACCEPTABILITY (test code = STN ACCEPTABLE) TOTAL CELLS COUNTED (test code = TCC) #CELLS SEGMENTED NEUTROPHILS (test code = SEG) % 39-69 LYMPHOCYTE (test code = LYMPH) % 25-55 MONOCYTE (test code = MON) % 0-10 EOSINOPHIL (test code = EOS) % 0.0-5.0 MORPHOLOGY COMMENT (test code = MOC) PLATELET ESTIMATE (test code = PLTEST) PLATELET MORPHOLOGY (test code = PLTMORPH) CBC W/MANUAL [id number] 02:27:00* Test Item Value Reference Range Interpretation Comments WHITE BLOOD CELL (test code = WBC) 25.6 K/mm3 4.5-12.5 H RED BLOOD CELL (test code = RBC) 3.44 mill/mm3 4.0-5.8 L HEMOGLOBIN (test code = HGB) 9.8 gram/dL 13.0-17.5 L HEMATOCRIT (test code = HCT) 28.5 % 42.0-52.0 L MEAN CELL VOLUME (test code = MCV) 82.8 fL 80-98 N MEAN CELL HGB (test code = MCH) 28.5 picogram 27.0-33.0 N MEAN CELL HGB CONCETRATION (test code = MCHC) 34.4 gram/dL 33.0-36. 0 N RED CELL DISTRIBUTION WIDTH (test code = RDW) 12.4 % 11.6-16. 2 N RED CELL DISTRIBUTION WIDTH SD (test code = RDW-SD) 37.4 fL 37 .0-51.0 N PLATELET COUNT (test code = PLT) 328 K/mm3 150-450 N MEAN PLATELET VOLUME (test code = MPV) 10.6 fL 6.7-11.0 N IMMATURE GRANULOCYTE % (test code = IG%) 1.9 % 0.0-5.0 N NUCLEATED RBC % (test code = NRBC%) 0.0 % 0-0 N NEUTROPHIL # (test code = NT#) 22.51 K/mm3 1.8-7.7 H IMMATURE GRANULOCYTE # (test code = IG#) 0.49 x10 3/uL 0-0.03 H LYMPHOCYTE # (test code = LY#) 1.06 K/mm3 1.0-5.0 N MONOCYTE # (test code = MO#) 1.45 K/mm3 0-0.8 H EOSINOPHIL # (test code = EO#) 0.00 K/mm3 0.0-0.5 N BASOPHIL # (test code = BA#) 0.08 K/mm3 0.0-0.2 N NUCLEATED RBC # (test code = NRBC#) 0.00 K/mm3 0.0-0.1 N MANUAL DIFF REQUIRED (test code = MDIFF) YES STAIN ACCEPTABILITY (test code = STN ACCEPTABLE) TOTAL CELLS COUNTED (test code = TCC) #CELLS SEGMENTED NEUTROPHILS (test code = SEG) % 39-69 LYMPHOCYTE (test code = LYMPH) % 25-55 MONOCYTE (test code = MON) % 0-10 MORPHOLOGY COMMENT (test code = MOC) PLATELET ESTIMATE (test code = PLTEST) PLATELET MORPHOLOGY (test code = PLTMORPH) CBC W/MANUAL [id number] 02:27:00* Test Item Value Reference Range Interpretation Comments WHITE BLOOD CELL (test code = WBC) 25.6 K/mm3 4.5-12.5 H RED BLOOD CELL (test code = RBC) 3.44 mill/mm3 4.0-5.8 L HEMOGLOBIN (test code = HGB) 9.8 gram/dL 13.0-17.5 L HEMATOCRIT (test code = HCT) 28.5 % 42.0-52.0 L MEAN CELL VOLUME (test code = MCV) 82.8 fL 80-98 N MEAN CELL HGB (test code = MCH) 28.5 picogram 27.0-33.0 N MEAN CELL HGB CONCETRATION (test code = MCHC) 34.4 gram/dL 33.0-36. 0 N RED CELL DISTRIBUTION WIDTH (test code = RDW) 12.4 % 11.6-16. 2 N RED CELL DISTRIBUTION WIDTH SD (test code = RDW-SD) 37.4 fL 37 .0-51.0 N PLATELET COUNT (test code = PLT) 328 K/mm3 150-450 N MEAN PLATELET VOLUME (test code = MPV) 10.6 fL 6.7-11.0 N IMMATURE GRANULOCYTE % (test code = IG%) 1.9 % 0.0-5.0 N NUCLEATED RBC % (test code = NRBC%) 0.0 % 0-0 N NEUTROPHIL # (test code = NT#) 22.51 K/mm3 1.8-7.7 H IMMATURE GRANULOCYTE # (test code = IG#) 0.49 x10 3/uL 0-0.03 H LYMPHOCYTE # (test code = LY#) 1.06 K/mm3 1.0-5.0 N MONOCYTE # (test code = MO#) 1.45 K/mm3 0-0.8 H EOSINOPHIL # (test code = EO#) 0.00 K/mm3 0.0-0.5 N BASOPHIL # (test code = BA#) 0.08 K/mm3 0.0-0.2 N NUCLEATED RBC # (test code = NRBC#) 0.00 K/mm3 0.0-0.1 N MANUAL DIFF REQUIRED (test code = MDIFF) YES STAIN ACCEPTABILITY (test code = STN ACCEPTABLE) TOTAL CELLS COUNTED (test code = TCC) #CELLS SEGMENTED NEUTROPHILS (test code = SEG) % 39-69 LYMPHOCYTE (test code = LYMPH) % 25-55 MONOCYTE (test code = MON) % 0-10 EOSINOPHIL (test code = EOS) % 0.0-5.0 CABOT RINGS (test code = CAB) MORPHOLOGY COMMENT (test code = MOC) PLATELET ESTIMATE (test code = PLTEST) PLATELET MORPHOLOGY (test code = PLTMORPH) [id number] 22:25:00* Test Item Value Reference Range Interpretation Comments GLUBED (test code = GLUBED) 359 mg/dL 74-106 H Performed by certified basin operator at [facility] ([facility]) URIC [id number] 21:05:00* Test Item Value Reference Range Interpretation Comments URIC ACID (test code = URIC) 11.3 mg/dL 2.6-7.2 H OSMOLALITY [id number] 21:05:00* Test Item Value Reference Range Interpretation Comments OSMOLALITY SERUM (test code = OSMO) 304.5 mOsm/kg 275-295 H URIC [id number] 20:55:00* Test Item Value Reference Range Interpretation Comments URIC ACID (test code = URIC) 11.3 mg/dL 2.6-7.2 H OSMOLALITY [id number] 20:55:00* Test Item Value Reference Range Interpretation Comments OSMOLALITY SERUM (test code = OSMO) mOsm/kg 275-295 SED [id number] 20:36:00* Test Item Value Reference Range Interpretation Comments SED RATE (test code = SEDW) 115 mm/hr 0-15 H WINTROBE METHOD: NORMAL RANGE FOR MEN: 0-9 MM/HR WOMAN: 0-20 MM/HR SED RATE [id number] 20:35:00* Test Item Value Reference Range Interpretation Comments SED RATE WESTERGREN (test code = SEDW) 115 mm/hr 0-15 H [id number] 19:19:00* Test Item Value Reference Range Interpretation Comments GLYCOSYLATED HEMOGLOBIN (HA1C) (test code = GLYHGB) 8.9 % HbA1 4. 8-6.0 H ESTIMATED AVERAGE GLUCOSE (test code = EAG) 209 MG/DL LACTIC [id number] 17:29:00* Test Item Value Reference Range Interpretation Comments LACTIC ACID (test code = LACT) 1.7 mmol/L 0.4-1.9 N CBC W/O [id number] 16:27:00* Test Item Value Reference Range Interpretation Comments WHITE BLOOD CELL (test code = WBC) 25.6 K/mm3 4.5-12.5 H RED BLOOD CELL (test code = RBC) 3.48 mill/mm3 4.0-5.8 L HEMOGLOBIN (test code = HGB) 10.0 gram/dL 13.0-17.5 L HEMATOCRIT (test code = HCT) 28.8 % 42.0-52.0 L MEAN CELL VOLUME (test code = MCV) 82.8 fL 80-98 N MEAN CELL HGB (test code = MCH) 28.7 picogram 27.0-33.0 N MEAN CELL HGB CONCETRATION (test code = MCHC) 34.7 gram/dL 33.0-36. 0 N RED CELL DISTRIBUTION WIDTH (test code = RDW) 12.4 % 11.6-16. 2 N PLATELET COUNT (test code = PLT) 340 K/mm3 150-450 N MEAN PLATELET VOLUME (test code = MPV) 11.0 fL 6.7-11.0 N PROTHROMBIN [id number] 16:10:00* Test Item Value Reference Range Interpretation Comments PROTHROMBIN TIME PATIENT (test code = PTP) 15.3 seconds 9.0-14.0 H INTERNATIONAL NORMAL RATIO (test code = INR) 1.3 0.8-1.2 H The therapeutic range for oral anticoagulant therapy [...] (2.5-3.5) IS PATIENT ON ANTICOAGULANTS? NTHROMBOPLASTIN TIME [id number] 16:10:00* Test Item Value Reference Range Interpretation Comments THROMBOPLASTIN TIME PARTIAL (test code = PTT) 37.5 seconds 25.0-36. 5 H IS PATIENT ON ANTICOAGULANTS? NBASIC METABOLIC [id number] 16:10:00* Test Item Value Reference Range Interpretation Comments SODIUM (test code = NA) 127 mmol/L 136-145 L POTASSIUM (test code = K) 4.2 mmol/L 3.5-5.1 N CHLORIDE (test code = CL) 96.0 mmol/L 98-107 L CARBON DIOXIDE (test code = CO2) 18.0 mmol/L 21-32 L ANION GAP (test code = GAP) 17.2 10-20 N GLUCOSE (test code = GLU) 282 mg/dL 74-106 H BLOOD UREA NITROGEN (test code = BUN) 87 mg/dL 7-18 H GLOMERULAR FILTRATION RATE (test code = GFR) 16 mL/min >=60 Estimated GFR by using Modified MDRD formula.Chronic kidney disease is defined as either kidney damageor GFR <60 mL/min/1.73 m2 for >3 months. CREATININE (test code = CREAT) 3.80 mg/dL 0.7-1.3 H BUN/CREATININE RATIO (test code = BUN/CREA) 23.0 10-20 H CALCIUM (test code = CA) 9.5 mg/dL 8.5-10.1 N BASIC METABOLIC [id number] 15:59:00* Test Item Value Reference Range Interpretation Comments SODIUM (test code = NA) 127 mmol/L 136-145 L POTASSIUM (test code = K) 4.2 mmol/L 3.5-5.1 N CHLORIDE (test code = CL) 96.0 mmol/L 98-107 L CARBON DIOXIDE (test code = CO2) mmol/L 21-32 ANION GAP (test code = GAP) 10-20 GLUCOSE (test code = GLU) mg/dL 74-106 BLOOD UREA NITROGEN (test code = BUN) mg/dL 7-18 GLOMERULAR FILTRATION RATE (test code = GFR) mL/min >=60 CREATININE (test code = CREAT) mg/dL 0.7-1.3 BUN/CREATININE RATIO (test code = BUN/CREA) 10-20 CALCIUM (test code = CA) mg/dL 8.5-10.1 - XR FOOT 3 + V [id number] 15:15:00 FAX: Myrna Lopez [phone] [place]: St: REG Name: TORRES CAN [facility] : [birth year] 57 Age/S: 58/M [address] [facility] Unit #: [id number] Loc: [place] [address] Phys: Myrna Vickers MD Acct: [id number] Dis Date: Status: REG ER PHONE #: [phone] Exam Date: 02/19/2019 1510 FAX #: [phone] Reason: GANGRENE OF SMALL TOE EXAMS: CPT CODE: [id number] XR FOOT 3 + V RT [id number] REASON FOR EXAM: GANGRENE OF SMALL TOE EXAM ORDER DATE: 02/19/2019 2:37 PM Ordering [place]: Myrna Vickers MD PROCEDURE: - XR FOOT [...] head of the right fourth metatarsal at 5642 Reported and signed by: Bala Jimenez M.D. CC: Myrna Vickers MD Technologist: TRICIA CORREA Trnscrd Date/Time/By: 02/19/2019 (7138) : By: [email or web address] Orig Print D/T: S: 02/19/2019 (3189) PAGE 1 Signed Report
--- OUTSIDE RECORDS SUMMARY | 2020-04-25 10:21 | XMS REPORT | Clinical Summary ---
Author Author [facility] ict Organization [facility] ict Address Unknown Phone Unavailable Care Team Providers Care Databases Software Consultant Name Role Phone So Tan MD PCP [...] g; Combo amputation, unspecified Route) route laterality USP facility assessment for Prosthetic care and wound [...] Comments Vital Sign 132/64 07/22/2019 10:29 AM BOOK ILLUSTRATOR Blood Pressure 68 07/22/2019 10:29 AM BOOK ILLUSTRATOR Pulse 36.8 C (98.2 F) 07/22/2019 10:29 AM BOOK ILLUSTRATOR Temperature 20 07/22/2019 10:29 AM BOOK ILLUSTRATOR Respiratory Rate - - Oxygen Saturation - - Inhaled Oxygen Concentration 82.1 kg (181 lb) 05/20/2019 1:35 PM BOOK ILLUSTRATOR Weight 165.1 cm (5' 5") 05/20/2019 1:35 PM BOOK ILLUSTRATOR Height 30.12 05/20/2019 1:35 PM BOOK ILLUSTRATOR Body Mass Index Plan of Treatment Health [...] medications and will try to remember to peanut picker and take all medications as prescribed. Procedures Comments Procedure Name Priority Date/Time Associated Diag nosis CBC Routine 06/21/2019 Hypertensive CK D, ESRD on 11:33 AM BOOK ILLUSTRATOR dialysis LIVER PROFILE Routine 06/21/2019 Type 2 diabetes mellitus 11:33 AM BOOK ILLUSTRATOR with other specified complication, with long-term current use of insulin CBC/DIFF Routine 06/21/2019 Hypertensive CK D, ESRD on 11:33 AM BOOK ILLUSTRATOR dialysis BASIC METABOLIC PANEL Routine 06/21/2019 Type 2 d iabetes mellitus 11:33 AM BOOK ILLUSTRATOR with other specified complication, with long-term current use of insulin Essential hypertension HEMOGLOBIN A1C Routine 06/21/2019 Type 2 diabetes mellitus 11:33 AM BOOK ILLUSTRATOR with other specified complication, with long-term current use of insulin after 04/24/2019 Results * CBC/Diff (06/21/2019 11:33 AM BOOK ILLUSTRATOR) WBC 7.2 4.5 - 12.0 K/uL [facility] [...] 0.58 0.30 - 0.82 K/uL [facility] Eos (Absolute) 0.01 (L) 0.04 - 0.54 K/uL [facility] Baso (Absolute) 0.04 0.01 - 0.08 K/uL [facility] Immature Grans 0.03 0.00 - 0.03 K/uL [facility] (Abs) [facility] Absolute NRBC 0.00 K/uL [facility] Specimen Blood Performing Organization Address [facility] Ph one Number [facility] [address] [place] [address] [phone] * Hemoglobin A1C (06/21/2019 11:33 AM BOOK ILLUSTRATOR) Hemoglobin A1c 9.6 (H) 4.3 - 6.1 % [facility] Estimated 229 (H) 70 - 110 mg/dL [facility] Average Glucose LABORATORY Specimen Blood Performing Organization Address [facility] Ph one Number [facility] [address] [place] [address] * Liver Profile (06/21/2019 11:33 AM BOOK ILLUSTRATOR) Total Protein 7.1 6.0 - 8.3 g/dL [...] [facility] Specimen Blood Performing Organization Address [facility] one Number [facility] [address] [place] [address] * Basic Metabolic Panel (06/21/2019 11:33 AM BOOK ILLUSTRATOR) Sodium 137 136 - 145 mmol/L [facility] [...] [facility] Specimen Blood Performing Organization Address [facility] one Number [facility] [address] [place] [address] [phone] after 04/24/2019 Insurance Type Payer Benefit Subscriber ID Effective Phone Address Plan / Dates Group [facility] xxxxxxxxx 2015-P [phone] [address] MEDICARE MEDICARE resent [id number] [place] [address] [id number] Advance Directives Date Inactivated Comments Code Status Date Activated 01/06/2014 5:13 PM Full Code 01/05/2014 4:55 PM 05/26/2011 3:04 PM Full Code 05/24/2011 7:03 PM
--- OUTSIDE RECORDS SUMMARY | 2020-04-25 10:23 | XMS REPORT | Continuity of Care Document ---
Author Author [facility] t Organization [facility] Address [address] [place] [place] [address] Phone Unavailable Care Team Providers Care Hearing Aid Assistant Name Role Phone NONSTAFF PCP Unavailable SONYA ARANDA Attphys Unavailable Brooklynn Ortiz DO Attphys Britney THORNE, So Attphys Lilia THORNE, Bayron Attphys RANJIT BALTAZAR Attphys Unavailable SONYA ARANDA Admphys Unavailable Payers Payer Name Policy Type Policy Number Effective Date Expiration Date S kristi [employer] MEDICAREUHC MEDICARE [id number] [address] xxxxxxxxx 2015 00:00:00 [facility] Ppo [id number] 2006 00:00:00 [facility] Problems Condition Name Condition Details Condition Category Status Onset Date Resolution Date Last Treatment Date Treating Clinician Comments Source Type 2 diabetes mellitus treated with insulin Type 2 d iabetes mellitus treated with insulin Disease Active 2019-04-19 00:00:00 [facility] S/P BKA (below knee amputation) unilateral, right S/P BKA (below knee amputation) unilateral, right Disease Active 2019-04-19 00:00:00 [facility] Dependence on hemodialysis Dependence on hemodialysis Disease Active 2019-04-19 00:00:00 [facility] Acute CHF Acute CHF Disease Active 2014-01-05 00:00:00 [facility] Pulmonary edema with congestive heart failure Pulmonar y edema with congestive heart failure Disease Active 2014-01-05 00:00:00 [facility] Hypoxia Hypoxia Disease Active 2014-01-05 00:00:00 [facility] Acute diastolic heart failure Acute diastolic heart failure Disease Active 2011-05-26 00:00:00 [facility] Peripheral edema Peripheral edema Disease Active 2011-05-26 00:00:00 [facility] HTN (hypertension) HTN (hypertension) Disease Active 2011-05-26 00:00:0 0 [facility] HLD (hyperlipidemia) HLD (hyperlipidemia) Disease Active 00:00:00 [facility] Other and unspecified hyperlipidemia Other and unspecified h yperlipidemia Disease Active 2011-05-24 00:00:00 [facility] Shortness of breath Shortness of breath Disease Active 2011-05-24 00:00 :00 [facility] CHF exacerbation CHF exacerbation Disease Active 2011-05-24 00:00:00 [facility] CKD (chronic kidney disease) stage 3, GFR 30-59 ml/min CKD (chronic kidney disease) stage 3, GFR 30-59 ml/min Disease Active 2011-05-24 00:00:00 [facility] Diabetes mellitus Diabetes mellitus Disease Active 2011-03-22 00:00:00 [facility] Sepsis Sepsis Problem Active [facility] Allergies, Adverse Reactions, Alerts Allergy Name Allergy Type Status Severity Reaction(s) Onset Date Inacti ve Date Treating Clinician Comments Source No Known Allergies DA Active U 2019-03-13 00:00:00 [facility] No Known Allergies DA Active U 2014-10-09 00:00:00 [facility] Family History Family Member Diagnosis Comments Start Date Stop Date Source [facility] Social History Social Habit Start Date Stop Date Quantity Comments Source Sex Assigned [facility] Alcohol intake 2019-07-22 00:00:00 2019-07-22 00:00:00 Current non-drinker of alcohol (finding) [facility] History SDOH Food Worry 2018-10-04 00:00:00 2018-10-04 00:00:00 1 [facility] History SDOH Food Scarcity 2018-10-04 00:00:00 2018-10-04 00:00:00 1 [facility] Smoking Status Start Date Stop Date Source Never smoker [facility] Medications Ordered Medication Name Filled Medication Name Start Date Stop Da te Current Medication? Ordering Clinician Indication Dosage Frequency Signature (SIG) Comments Components Source simvastatin (ZOCOR) 20 mg tablet 2020-01-06 00:00:00 Yes Hyperlipidemia, unspecified hyperlipidemia type 20mg Take 1 t ablet by mouth at bedtime nightly. [facility] carvediloL (COREG) 25 mg tablet 2020-01-06 00:00:00 Yes Essential hypertension 25mg Take 1 tablet by mouth 2 times daily (with me als). [facility] 2019-09-05 00:00:00 Yes H/O implantation of prosthetic limb device by [facility].(Non-D rug; Combo Route) route Home PT to train Patient to use his prosthetic limb appropriately. [facility] 2019-08-26 00:00:00 Yes Status post below knee amputation, unspecified laterality by [facility].(Non-Drug; Combo Route) route [facility] facility assessment for Prosthetic care and wound care. [facility] hydrALAZINE (APRESOLINE) 25 mg tablet 2019-08-16 00:00:00 Yes Essential hypertension 75mg Take 3 tablets by mouth 3 times daily. [facility] carvediloL (COREG) 25 mg tablet 2019-08-16 00:00:00 00:00:00 No Essential hypertension 25mg Take 1 tablet by mouth 2 times daily (with meals). [facility] tropicamide (MYDRIACYL) 0.5 % ophthalmic solution 2019-07-22 00:00:00 2020-01-19 23:59:00 No Type 2 diabetes remigio itus with other specified complication, with long-term current use of insulin 1[drp] Instill 1 Drop in each eye once as needed for up to 1 dose (for poor retina scan image). [facility] gabapentin (NEURONTIN) 300 mg capsule 2019-07-04 00:00:00 Yes Neuropathy 300mg Take 1 capsule by mouth 3 times daily. [facility] insulin detemir U-100 (LEVEMIR FLEXTOUCH U-100 INSULN) 100 u nit/mL (3 mL) Pen 2019-05-20 00:00:00 Yes Type 2 diabe bradley mellitus with other specified complication, with long-term current use of insulin 40U Q.5D Inject 40 Units under the skin 2 times daily. [facility] linaGLIPtin (TRADJENTA) 5 mg tablet 2019-05-20 00:00:00 Yes Type 2 diabetes mellitus with other specified complication, with long-term current use of insulin 5mg QD Take 1 tablet by mouth daily. [facility] furosemide (LASIX) 40 mg tablet 2019-05-20 00:00:00 Yes CKD (chronic kidney disease) stage 3, GFR 30-59 ml/min 40mg Q.5D Take 1 tablet by mouth 2 times daily. [facility] blood glucose test strips 2019-05-20 00:00:00 Yes Type 2 diabetes mellitus with other specified complication, with long-term current use of insulin Use 3 times daily to test blood sugar. [facility] lisinopriL (PRINIVIL, ZESTRIL) 40 mg tablet 2019-05-20 00:00 :00 Yes CKD (chronic kidney disease) stage 3, GFR 30-59 ml/min 40mg QD Take 1 tablet by mouth daily. [facility] lisinopril (PRINIVIL, ZESTRIL) 20 mg tablet 2018 00:00:00 2019-05-20 00:00:00 No CKD (chronic kidney disease) stage 3, GFR 30-59 ml/min 30mg QD Take 1 and 1/2 tablets by mouth daily. [facility] Cefdinir (Omnicef) 300 Mg Capsule Cefdinir (Omnicef) 300 Mg Capsule 2019-05-15 00:00:00 Yes Ml [place]uster 300 Every [address] [facility] simvastatin (ZOCOR) 20 mg tablet 2019-05-13 00:00:00 2019-12 00:00:00 No Hyperlipidemia, unspecified hyperlipidemia type 20mg Take 1 tablet by mouth at bedtime nightly. [facility] carvedilol (COREG) 25 mg tablet 2019-04-08 00:00:00 00:00:00 No Essential hypertension 25mg Take 1 tablet by mouth 2 times daily (with meals). [facility] amLODIPine (NORVASC) 10 mg tablet 2019-01-23 00:00:00 Yes Essential hypertension 10mg QD Take 1 tablet by mouth daily. [facility] insulin detemir U-100 (LEVEMIR FLEXTOUCH U-100 INSULN) 100 u nit/mL (3 mL) Pen 2018-10-16 00:00:00 2019-05-20 00:00:00 No Type 2 d iabetes mellitus with other specified complication, with long-term current use of insulin 25U Q.5D Inject 25 Units under the skin 2 times daily. [facility] simvastatin (ZOCOR) 20 mg tablet 2018-10-04 00:00:00 2019-05 00:00:00 No Hyperlipidemia, unspecified hyperlipidemia type 20mg Take 1 tablet by mouth at bedtime nightly. [facility] hydrALAZINE (APRESOLINE) 25 mg tablet 2018-06-05 00:00 :00 2019-08-16 00:00:00 No Essential hypertension 75mg Take 3 tablets by mouth 3 times daily. [facility] furosemide (LASIX) 40 mg tablet 2018-04-16 00:00:00 00:00:00 No CKD (chronic kidney disease) stage 3, GFR 30-59 ml/min 40mg Q.5D Take 1 tablet by mouth 2 times daily. [facility] gabapentin (NEURONTIN) 300 mg capsule 2018-03-28 00:00 :00 2019-07-04 00:00:00 No Neuropathy 300mg Take 1 capsule by mouth 3 times daily . [facility] pen needle, diabetic (TRUEPLUS) 31 gauge x 3/16" needles 2017-11-30 00:00:00 Yes Type 2 diabetes remigio itus with other specified complication, with long- term current use of insulin Use 2 times daily [facility] lisinopril (PRINIVIL, ZESTRIL) 20 mg tablet 2017 00:00:00 2019-05-20 00:00:00 No CKD (chronic kidney disease) stage 3, GFR 30-59 ml/min 30mg QD Take 1 and 1/2 tablets by mouth daily. [facility] lancets 33 gauge Misc 2017-01-10 00:00:00 Yes 3 times daily. [facility] blood glucose test strips 2017-01-06 00:00:00 2019-05-20 00:00:00 No Use 3 times daily to test blood sugar. [facility] blood glucose meter 2016-01-15 00:00:00 Yes Diabetes mellitus with other complication, with long-term current use of insulin Use as directed.. [facility] ASPIRIN 81 mg Tab 2011-02-22 00:00:00 Yes Type II or unspecified type diabetes mellitus without mention of complication, uncontrolled 81mg QD Take 81 mg by mouth daily. [facility] blood glucose meter 2011-02-22 00:00:00 Yes Type II or unspecified type diabetes mellitus without mention of complication, uncontrolled Check BG every morning before breakfast and 2 hours after dinner [facility] Amlodipine Besylate 10 Mg Tablet Amlodipine Besylate 10 Mg Tablet Yes 10 Daily [facility] Carvedilol 25 Mg Tablet Carvedilol 25 Mg Tablet Yes 25 Twice A Day [facility] Furosemide (Lasix) 40 Mg Tablet Furosemide (Lasix) 40 Mg Tablet Yes 40 Twice A Day [facility] Gabapentin 300 Mg Capsule Gabapentin 300 Mg Capsule Yes 300 Three Times A Day [facility] Hydralazine Hcl 25 Mg Tab Hydralazine Hcl 25 Mg Tab Yes 75 Three Times A Day [facility] Insulin Detemir (Levemir) 100 Unit/1 Ml Vial Insulin D etemir (Levemir) 100 Unit/1 Ml Vial Yes 25 Twice A Day [facility] Lisinopril 10 Mg Tablet Lisinopril 10 Mg Tablet Yes 30 Daily [facility] Simvastatin 20 Mg Tablet Simvastatin 20 Mg Tablet Yes 20 Bedtime [facility] Immunizations Ordered Immunization Name Filled Immunization Name Date Status Comments Source Pneumoccoccal 2011-02-22 00:00:[address] [facility] Vital Signs Vital Name Observation Time Observation Value Comments Source Systolic blood pressure 2019-07-22 10:29:00 132 mm[Hg] [facility] Diastolic blood pressure 2019-07-22 10:29:00 64 mm[Hg] [facility] Heart rate 2019-07-22 10:29:00 68 /min [facility] Body temperature 2019-07-22 10:29:00 36.78 Katia Shanae is [facility] Respiratory rate 2019-07-22 10:29:00 20 /min Shanae is [facility] Body height 2019-05-20 13:35:00 165.1 cm [facility] Body weight 2019-05-20 13:35:00 82.101 kg [facility] BMI 2019-05-20 13:35:00 30.12 kg/m2 [facility] Procedures Procedure Date / Time Performed Performing Clinician [facility] HEMOGLOBIN A1C 2019-06-21 11:33:00 [facility] BASIC METABOLIC PANEL 2019-06-21 11:33:[facility] 2019-06-21 11:33:00 [facility] LIVER PROFILE 2019-06-21 11:33:00 [facility] CBC 2019-06-21 11:33:00 [facility] Plan of Care Planned Activity Planned Date Details Comments Source Future Scheduled Test 2020-06-21 00:00:00 Hemoglobin A1c markos surement (procedure) [code = 51187553] [facility] Scheduled Test 2019-10-05 00:00:00 DM Foot Exam (Year ly) [code = DM Foot Exam (Yearly)] [facility] Scheduled Test 2019-09-05 00:00:00 DM Retinal Exam (Y early) [code = DM Retinal Exam (Yearly)] [facility] Scheduled Test 2008 00:00:00 Screening for montse gnant neoplasm of colon (procedure) [code = 861199069] [facility] Encounters Start Date/Time End Date/Time Encounter Type Admission Type [facility] Care Department Encounter ID Source 2019-07-22 10:28:52 2019-07-22 10:28:52 Outpatient [facility] [id number] [facility] 2019-06-21 11:29:40 2019-06-21 11:29:40 Outpatient [facility] [id number] [facility] 2019-06-21 00:00:00 2019-06-21 00:00:00 Outpatient [facility] [id number] [facility] 2019-06-12 00:00:00 2019-06-12 00:00:00 Outpatient [facility] [id number] [facility] 2019-05-22 00:00:00 2019-05-22 00:00:00 Outpatient [facility] [id number] [facility] 2019-05-20 13:35:20 2019-05-20 13:35:20 Outpatient [facility] [id number] [facility] 2019-05-13 14:18:00 2019-05-15 09:53:00 Discharged Inpatient 1 [facility] [id number] [facility] 2019-04-19 10:21:16 2019-04-19 10:21:16 Outpatient [facility] [id number] [facility] 2019-04-18 00:00:00 2019-04-18 00:00:00 Outpatient [facility] [id number] [facility] 2019-04-02 00:00:00 2019-04-02 00:00:00 Outpatient [facility] [id number] [facility] 2019-03-28 00:00:00 2019-03-28 00:00:00 Outpatient [facility] [id number] [facility] 2018-11-21 00:00:00 2018-11-21 00:00:00 Outpatient [facility] [id number] [facility] 2018-11-08 00:00:00 2018-11-08 00:00:00 Outpatient [facility] [id number] [facility] 2018-10-22 00:00:00 2018-10-22 00:00:00 Outpatient [facility] [id number] [facility] 2018-10-10 10:11:42 2018-10-10 10:11:42 Outpatient [facility] [id number] [facility] 2018-10-04 14:02:06 2018-10-04 14:02:06 Outpatient [facility] [id number] [facility] 2018-04-13 00:00:00 2018-04-13 00:00:00 Outpatient [facility] [id number] [facility] 2018-03-23 00:00:00 2018-03-23 00:00:00 Outpatient [facility] [id number] [facility] 2018-03-23 00:00:00 2018-03-23 00:00:00 Outpatient [facility] [id number] [facility] 2017-12-18 00:00:00 2017-12-18 00:00:00 Outpatient [facility] [id number] [facility] 2017-12-14 00:00:00 2017-12-14 00:00:00 Outpatient [facility] [id number] [facility] 2017-11-30 15:05:47 2017-11-30 15:05:47 Outpatient [facility] [id number] [facility] 2017-11-30 13:32:46 2017-11-30 13:32:46 Outpatient [facility] [id number] [facility] 2017-11-30 00:00:00 2017-11-30 00:00:00 Outpatient [facility] [id number] [facility] 2017-03-20 00:00:00 2017-03-20 00:00:00 Outpatient [facility] [id number] [facility] 2017-03-03 00:00:00 2017-03-03 00:00:00 Outpatient [facility] [id number] [facility] 2017-01-30 00:00:00 2017-01-30 00:00:00 Outpatient [facility] [id number] [facility] 2017-01-19 00:00:00 2017-01-19 00:00:00 Outpatient [facility] [id number] [facility] 2017-01-10 11:03:29 2017-01-10 11:03:29 Outpatient [facility] [id number] [facility] 2017-01-06 15:34:13 2017-01-06 15:34:13 Outpatient [facility] [id number] [facility] 2017-01-06 13:41:52 2017-01-06 13:41:52 Outpatient [facility] [id number] [facility] Results Test Description Test Time Test Comments Results Result Comments Source FOOT LEFT COMPLETE 2020-04-24 21:32:00 [facility] 1960 Sex: [place] [address] Patient Name: TORRES MAI MR #: [id number] : 1960 Age/Sex: 59/M Req #: [id number] Adm Physician: SONYA ARANDA MD Ordered by: WAYLON NOBLES DO Report #: [id number] Location: [facility] Room/Bed: [place] [address] Procedure: [id number] DX/FOOT LEFT COMPLETE Exam Date: 04/24/20 Exam [...] 32.6 g/dL 32-36 RDW (test code = 16972-0) 44.2 fL 35.1-43.9 H Platelet (test code = 777-3) 178 K/uL 150-400 Mean Platelet Volume (test code = 62999-8) 11.2 fL 9.4-12.4 Percent NRBC (test code = 99907406) 0.0 % Neutrophil (test code = 770-8) 63.5 % 34-67.9 Lymphs (test code = 736-9) 27.3 % 21.8-50 Monocytes (test code = 5905-5) 8.1 % 5.3-12 Eos (test code = 713-8) 0.1 % 0.8-5 L Basos (test code = 706-2) 0.6 % 0.2-1.2 Immature Granulocytes (test code = 98643757) 0.4 % 0-0.5 Neutrophils (Absolute) (test code = 68649710) 4.56 K/uL 1.78-5.3 6 Lymphs (Absolute) (test code = 28710693) 1.96 K/uL 1.32-3.57 Monocytes(Absolute) (test code = 78008701) 0.58 K/uL 0.3-0.82 Eos (Absolute) (test code = 23297754) 0.01 K/uL 0.04-0.54 L Baso (Absolute) (test code = 75753634) 0.04 K/uL 0.01-0.08 Immature Grans (Abs) (test code = 79896712) 0.03 K/uL 0-0.03 Absolute NRBC (test code = 56858249) 0.00 K/uL Lab Interpretation (test code = 38797-8) Abnormal [facility] Metabolic [id number] 07:47:00* Test Item Value Reference Range Interpretation Comments Sodium (test code = 2951-2) 137 mmol/L 136-145 Potassium (test code = 2823-3) 4.6 mmol/L 3.5-5.1 Chloride (test code = 2075-0) 97 mmol/L 98-107 L CO2 (test code = 50512616) 26 mmol/L 21-31 Urea Nitrogen (test code = 51711501) 37.0 mg/dL 7-25 H Creatinine (test code = 23401861) 3.2 mg/dL 0.7-1.3 H Glucose (test code = 86753932) 130 mg/dL 70-110 H Calcium (test code = 82849770) 7.9 mg/dL 8.6-10.3 L GFR, Estimated (test code = 47590275) 20 >=90 mL/min/1.73 m2 L Anion Gap (test code = 36315065) 14 mmol/L 5-16 Lab Interpretation (test code = 32054-4) Abnormal [facility] [id number] 07:47:00* Test Item Value Reference Range Interpretation Comments Bilirubin, Total (test code = 2885-2) 0.5 mg/dL 0.2-1.2 Alkaline Phosphatase (test code = 74675446) 68 U/L 34-104 AST (test code = 74980287) 19 U/L 13-39 Direct Bilirubin (test code = 1968-7) 0.1 mg/dL 0-0.2 ALT (test code = 05183885) 25 U/L 7-52 Albumin (test code = 35252-4) 4.2 g/dL 4.2-5.5 Lab Interpretation (test code = 82923-6) Normal [facility] [id number] 06:58:00* Test Item Value Reference Range Interpretation Comments Hemoglobin A1c (test code = 4548-4) 9.6 % 4.3-6.1 H Estimated Average Glucose (test code = 55502776) 229 mg/dL 70-11 0 H Lab Interpretation (test code = 90222-7) Abnormal [facility] HospitalAdvlwcVFDBQO7750-86-71 10:07:00* Test Item Value Reference Range Interpretation Comments GLUBED (test code = GLUBED) 166 mg/dL 74-106 H Performed by certified counting machine operator at [facility] Sodium Vvcxt9032-15-50 03:01:00* Test Item Value Reference Range Interpretation Comments Sodium Level (test code = 2951-2) 132 136-145 L [facility] [id number] 03:01:00* Test Item Value Reference Range Interpretation Comments Potassium Level (test code = 2823-3) 4.1 3.5-5.1 [facility]Chloride Yrvyu1969-14-64 03:01:00* Test Item Value Reference Range Interpretation Comments Chloride Level (test code = 2075-0) 96 98-107 L [facility]ieCarbon Dioxide Facag6892-64-50 03:01:00* Test Item Value Reference Range Interpretation Comments Carbon Dioxide Level (test code = 2028-9) 22 22-29 [facility]ieAnion [id number] 03:01:00* Test Item Value Reference Range Interpretation Comments Anion Gap (test code = 19697-1) 18.1 8-16 H [facility]ieBlood Urea [id number] 03:01:00* Test Item Value Reference Range Interpretation Comments Blood Urea Nitrogen (test code = 3094-0) 37 7-26 H [facility]ieCreatinine2019-12-11 03:01:00* Test Item Value Reference Range Interpretation Comments Creatinine (test code = 2160-0) 3.45 0.72-1.25 H [facility]ieBUN/Creatinine Iddlv4477-46-48 03:01:00* Test Item Value Reference Range Interpretation Comments BUN/Creatinine Ratio (test code = 3097-3) 11 6-25 [facility]ieEstimat Glomerular Filtration Rate 2019-05-15 03:01:00* Test Item Value Reference Range Interpretation Comments Estimat Glomerular Filtration Rate (test code = 831250108) 18 >60 L Ranges were taken from the National Kidney Disease Education Program and the [facility] [employer] [employer] literature.Reference ranges:60 or greater: Exgsnr45-61 ( for 3 consecutive months): Chronic kidney disease 15 or less: Kidney failureBaylor Scott & [facility] Center [facility] WaxahachieGlucose Tjwbd3676-02-29 03:01:00* Test Item Value Reference Range Interpretation Comments Glucose Level (test code = BJT2836) 226 74-118 H [facility]ieCalcium Rhpjk7199-93-80 03:01:00* Test Item Value Reference Range Interpretation Comments Calcium Level (test code = 60800-1) 8.6 8.4-10.2 [facility]ieWhite Blood Dozcv5617-97-74 02:46:00* Test Item Value Reference Range Interpretation Comments White Blood Count (test code = 6690-2) 4.61 4.8-10.8 L [facility]ieRed Blood Vzikp9175-12-94 02:46:00* Test Item Value Reference Range Interpretation Comments Red Blood Count (test code = 789-8) 3.33 4.3-5.7 L [facility]ieHemoglobin2019-12-11 02:46:00* Test Item Value Reference Range Interpretation Comments Hemoglobin (test code = 30457-9) 10.0 14.0-18.0 L [facility]ieHematocrit2019-12-11 02:46:00* Test Item Value Reference Range Interpretation Comments Hematocrit (test code = 4544-3) 29.5 38.2-49.6 L [facility]ieMean Corpuscular Iocyae1147-45-24 02:46:00* Test Item Value Reference Range Interpretation Comments Mean Corpuscular Volume (test code = 787-2) 88.6 81-99 [facility]ieMean Corpuscular Zzfypucwoy9589-40-34 02:46:00* Test Item Value Reference Range Interpretation Comments Mean Corpuscular Hemoglobin (test code = 785-6) 30.0 28-32 [facility]ieMean Corpuscular Hemoglobin Concent 2019-05-15 02:46:00* Test Item Value Reference Range Interpretation Comments Mean Corpuscular Hemoglobin Concent (test code = 786-4) 33.9 31-35 [facility]ieRed Cell Distribution Chlkf2735-63-64 02:46:00* Test Item Value Reference Range Interpretation Comments Red Cell Distribution Width (test code = 75764-7) 14.0 11.7 -14.4 [facility]iePlatelet Gvkmb9167-11-70 02:46:00* Test Item Value Reference Range Interpretation Comments Platelet Count (test code = 777-3) 123 140-360 L [facility] [facility]ieNeutrophils (%) (Auto)2019-05-15 02:46:00 * Test Item Value Reference Range Interpretation Comments Neutrophils (%) (Auto) (test code = 17418-0) 58.1 38.7-80.0 [facility]Lymphocytes (%) (Auto)2019-05-15 02:46:00 * Test Item Value Reference Range Interpretation Comments Lymphocytes (%) (Auto) (test code = 736-9) 21.0 18.0-39.1 [facility]Monocytes (%) (Auto)2019-05-15 02:46:00* Test Item Value Reference Range Interpretation Comments Monocytes (%) (Auto) (test code = 5905-5) 17.8 4.4-11.3 H [facility]Eosinophils (%) (Auto)2019-05-15 02:46:00 * Test Item Value Reference Range Interpretation Comments Eosinophils (%) (Auto) (test code = 713-8) 0.7 0.0-6.0 [facility]Basophils (%) (Auto)2019-05-15 02:46:00* Test Item Value Reference Range Interpretation Comments Basophils (%) (Auto) (test code = 706-2) 0.4 0.0-1.0 [facility]IM GRANULOCYTES %2019-05-15 02:46:00* Test Item Value Reference Range Interpretation Comments IM GRANULOCYTES % (test code = IM GRANULOCYTES %) 2.0 0.0- 1.0 H [facility]Neutrophils # (Auto)2019-05-15 02:46:00* Test Item Value Reference Range Interpretation Comments Neutrophils # (Auto) (test code = 751-8) 2.7 2.1-6.9 [facility]Lymphocytes # (Auto)2019-05-15 02:46:00* Test Item Value Reference Range Interpretation Comments Lymphocytes # (Auto) (test code = 47140-9) 1.0 1.0-3.2 [facility]Monocytes # (Auto)2019-05-15 02:46:00* Test Item Value Reference Range Interpretation Comments Monocytes # (Auto) (test code = 742-7) 0.8 0.2-0.8 [facility]Eosinophils # (Auto)2019-05-15 02:46:00* Test Item Value Reference Range Interpretation Comments Eosinophils # (Auto) (test code = 711-2) 0.0 0.0-0.4 [facility]Basophils # (Auto)2019-05-15 02:46:00* Test Item Value Reference Range Interpretation Comments Basophils # (Auto) (test code = 704-7) 0.0 0.0-0.1 [facility]ieAbsolute Immature Granulocyte (auto 2019-05-15 02:46:00* Test Item Value Reference Range Interpretation Comments Absolute Immature Granulocyte (auto (bradley t code = Absolute Immature Granulocyte (auto) 0.09 0-0.1 [facility]ieBlood [id number] 21:27:00* Test Item Value Reference Range Interpretation Comments Blood Culture (test code = 11145020) NO GROWTH AFTER 72 HOURS [facility]ieBedside [id number] 15:40:00* Test Item Value Reference Range Interpretation Comments Bedside Glucose (test code = 13024-7) 232 70-120 H Meter ID: [id number] Scott & [facility]ahachieUrine Culture 2019-05-14 11:14:00* Test Item Value Reference Range Interpretation Comments Urine Culture (test code = 630-4) No Result Data Provided [facility]ieMagnesium [id number] 04:36:00* Test Item Value Reference Range Interpretation Comments Magnesium Level (test code = 55518-9) 1.8 1.3-2.1 [facility]ieLactic Acid [id number] 07:32:00* Test Item Value Reference Range Interpretation Comments Lactic Acid Level (test code = Lactic Acid Level) 1.6 0.5- 2.0 [facility]ieInfluenza Virus Types A,B Antigen 2019-05-13 07:18:00* Test Item Value Reference Range Interpretation Comments Influenza Virus Types A,B Antigen (test code = 49127-7) NEGATIVE NEGATIVE [facility]ieGroup A Streptococcus Dnlxuc8989-63-68 07:17:00* Test Item Value Reference Range Interpretation Comments Group A Streptococcus Screen (test code = 40359-2) NEGATIVE NEG ATIVE [facility]ieThyroid Stimulating Hormone (TSH) 2019-05-13 01:52:00* Test Item Value Reference Range Interpretation Comments Thyroid Stimulating Hormone (TSH) (test code = 30285-5) 1.811 0.350-4.940 [facility]ieHemoglobin A1c Ioryfat9766-57-82 01:22:00 * Test Item Value Reference Range Interpretation Comments Hemoglobin A1c Percent (test code = Hemoglobin A1c Percent) 7.9 4.0-7.0 H [facility]ieDifferential Total Cells Counted 2019-05-12 20:20:00* Test Item Value Reference Range Interpretation Comments Differential Total Cells Counted (test code = Differen tial Total Cells Counted) 100 [facility]ieNeutrophils % (Manual)2019-05-12 20:20:00 * Test Item Value Reference Range Interpretation Comments Neutrophils % (Manual) (test code = 04641-4) 92 40-74 H [facility]ieLymphocytes % (Manual)2019-05-12 20:20:00 * Test Item Value Reference Range Interpretation Comments Lymphocytes % (Manual) (test code = 737-7) 6 19-48 L [facility]ieMonocytes % (Manual)2019-05-12 20:20:00* Test Item Value Reference Range Interpretation Comments Monocytes % (Manual) (test code = 744-3) 2 3.4-9.0 L [facility]iePlatelet [id number] 20:20:00* Test Item Value Reference Range Interpretation Comments Platelet Estimate (test code = 98178-5) SLIGHTLY DECREASED [facility]iePlatelet Morphology [id number] 20:20:00* Test Item Value Reference Range Interpretation Comments Platelet Morphology Comment (test code = 75864-9) NORMAL [facility]ieRed Cell Morphology Qswvqkl9727-64-97 20:20:00* Test Item Value Reference Range Interpretation Comments Red Cell Morphology Comment (test code = 6742-1) NORMAL [facility]ieUrine [id number] 23:13:00* Test Item Value Reference Range Interpretation Comments Urine WBC (test code = 5821-4) >50 0-5 H [facility]ieUrine [id number] 23:13:00* Test Item Value Reference Range Interpretation Comments Urine RBC (test code = 23395-9) >50 0-5 H [facility]ieUrine Uqozpvxw0662-92-78 23:13:00* Test Item Value Reference Range Interpretation Comments Urine Bacteria (test code = 45858-1) MANY NONE H [facility]ieUrine Epithelial Ggcos8338-23-90 23:13:00 * Test Item Value Reference Range Interpretation Comments Urine Epithelial Cells (test code = 99649-9) MANY NONE [facility]ieUrine Vbfod3677-50-19 22:50:00* Test Item Value Reference Range Interpretation Comments Urine Color (test code = 5778-6) YELLOW YELLOW [facility]ieUrine Hrgbcns8675-56-66 22:50:00* Test Item Value Reference Range Interpretation Comments Urine Clarity (test code = 17433-8) CLOUDY CLEAR H [facility]ieUrine Specific Jguafsl5122-52-47 22:50:00 * Test Item Value Reference Range Interpretation Comments Urine Specific [place] (test code = 5811-5) 1.020 1.010-1.02 5 [facility]ieUrine [id number] 22:50:00* Test Item Value Reference Range Interpretation Comments Urine pH (test code = 61905-3) 6 5-7 [facility]ieUrine Leukocyte Kwpojacj8192-61-40 22:50:00* Test Item Value Reference Range Interpretation Comments Urine Leukocyte Esterase (test code = 5799-2) NEGATIVE NEGATIVE [facility]ieUrine Ybdajgy1932-61-48 22:50:00* Test Item Value Reference Range Interpretation Comments Urine Nitrite (test code = 55679-7) NEGATIVE NEGATIVE [facility]ieUrine Wrdfyuv2791-40-05 22:50:00* Test Item Value Reference Range Interpretation Comments Urine Protein (test code = 5804-0) 2+ NEGATIVE H [facility]ieUrine Glucose (UA)2019-05-11 22:50:00* Test Item Value Reference Range Interpretation Comments Urine Glucose (UA) (test code = 2349-9) NEGATIVE NEGATIVE [facility]ieUrine Qzveavu8796-04-58 22:50:00* Test Item Value Reference Range Interpretation Comments Urine Ketones (test code = 05089-2) NEGATIVE NEGATIVE [facility]ieUrine Cjneksuixbgt6137-56-77 22:50:00* Test Item Value Reference Range Interpretation Comments Urine Urobilinogen (test code = 83884-1) 0.2 0.2-1 [facility]ieU[facility] Bdqmxkpxf6572-52-71 22:50:00* Test Item Value Reference Range Interpretation Comments Urine Bilirubin (test code = 1978-6) NEGATIVE NEGATIVE [facility]ieUrine Iltth5879-56-68 22:50:00* Test Item Value Reference Range Interpretation Comments Urine Blood (test code = 93191-5) 3+ NEGATIVE [facility]ieCHEST SINGLE (PORTABLE)2019-05-11 22:22:00 [place] [address] Patient Name: TORRES MAI MR #: [id number] : 1960 Age/Sex: 58/M Req #: [id number] Adm Physician: Ordered by: SUKHDEEP AGUILAR AXLE TURNER Report #: [id number] Location: ER Room/Bed: Procedure: [id number] DX/ CHEST SINGLE (PORTABLE) Exam Date: 05/11/19 Exam Juan e: [id number] REPORT STATUS: Signed EX AMINATION: CHEST SINGLE (PORTABLE) INDICATION: ERMD ORDER [id number] 2155 Y COMPARISON: 03/12/2009 FINDINGS: AP view [...] Neutrophils % (test code = 764-1) 5 [facility]ieTotal Ihyvwqfxl7545-82-70 21:48:00* Test Item Value Reference Range Interpretation Comments Total Bilirubin (test code = 1975-2) 1.1 0.2-1.2 [facility]ieAspartate Amino Transf (AST/SGOT) 2019-05-11 21:48:00* Test Item Value Reference Range Interpretation Comments Aspartate Amino Transf (AST/SGOT) (test code = Aspartate Amino Transf (AST/SGOT)) 27 5-34 [facility]ieAlanine Aminotransferase (ALT/SGPT) 2019-05-11 21:48:00* Test Item Value Reference Range Interpretation Comments Alanine Aminotransferase (ALT/SGPT) (test code = 1742-6) 39 0-55 [facility]ieTotal Zwboisp4761-87-11 21:48:00* Test Item Value Reference Range Interpretation Comments Total Protein (test code = 2885-2) 6.9 6.5-8.1 [facility]ieAlbumin2019-12-07 21:48:00* Test Item Value Reference Range Interpretation Comments Albumin (test code = 1751-7) 3.2 3.5-5.0 L [facility]ieGlobulin2019-12-07 21:48:00* Test Item Value Reference Range Interpretation Comments Globulin (test code = 73639-0) 3.7 2.3-3.5 H [facility]ieAlbumin/Globulin Dpymy4458-10-61 21:48:00 * Test Item Value Reference Range Interpretation Comments Albumin/Globulin Ratio (test code = 1759-0) 0.9 0.8-2.0 [facility]ieAlkaline Jjdecoytzse0727-84-49 21:48:00* Test Item Value Reference Range Interpretation Comments Alkaline Phosphatase (test code = 6768-6) 83 40-150 [facility]ieGLUBED2019-11-18 08:40:00* Test Item Value Reference Range Interpretation Comments GLUBED (test code = GLUBED) 190 mg/dL 74-106 H Performed by certified counting machine operator at [facility] BQEJGWAQP5847-15-12 08:04:00* Test Item Value Reference Range Interpretation Comments POTASSIUM (test code = K) 3.8 mmol/L 3.5-5.1 N COMPREHENSIVE METABOLIC [id number] 12:37:00* Test Item Value Reference Range Interpretation [...] range due to change in reagent. PROTHROMBIN [id number] 12:24:00* Test Item Value Reference Range Interpretation [...] Mechanical prosthetic heart valves (2.5-3.5) THROMBOPLASTIN TIME [id number] 12:24:00* Test Item Value Reference Range Interpretation Comments THROMBOPLASTIN TIME PARTIAL (test code = PTT) 35.6 seconds 25.0-36. 5 N CBC W/AUTO [id number] 12:15:00* Test Item Value Reference Range Interpretation [...] DIFF REQUIRED (test code = MDIFF) NO [id number] 11:32:00* Test Item Value Reference Range Interpretation Comments GLUBED (test code = GLUBED) 243 mg/dL 74-106 H Performed by certified counting machine operator at [facility] AHARWY0068-24-97 07:20:00* Test Item Value Reference Range Interpretation Comments GLUBED (test code = GLUBED) 156 mg/dL 74-106 H Performed by certified counting machine operator at [facility] [id number] 20:11:00* Test Item Value Reference Range Interpretation Comments GLUBED (test code = GLUBED) 277 mg/dL 74-106 H Performed by certified counting machine operator at [facility] [id number] 16:38:00* Test Item Value Reference Range Interpretation Comments GLUBED (test code = GLUBED) 200 mg/dL 74-106 H Performed by certified counting machine operator at [facility] CBC W/AUTO [id number] 13:41:00* Test Item Value Reference Range Interpretation [...] (test code = MDIFF) NO BASIC METABOLIC [id number] 13:23:00* Test Item Value Reference Range Interpretation [...] 8.5-10.1 L - XR SWLW FUNC W/C [id number] 11:32:00 FAX: Rojelio Padron [place]: St: ADM Name: Italo TORRES MCKEON [facility] : [birth year] Age/S: 58/M [address] [facility] Unit #: [id number] Loc: V.3[address] [place] [address] Phys: Rojelio Saldana jeny [facility] DO Acct: [id number] Dis Date: Status: ADM IN PHONE #: [phone] Exam Date: 03/29/2019 1009 FAX #: [phone] Reason: ASSES SWALLOW EXAMS: CPT CODE: [id number] XR SWLW FUNC W/C V 51421 HISTORY: Aspiration. COMPARISON: March 21, 2019. This [...] JoseTH4 Orig Print D/T : S: 03/29/2019 (0502) PAGE 1 Sig moy Report [id number] 11:15:00* Test Item Value Reference Range Interpretation Comments GLUBED (test code = GLUBED) 295 mg/dL 74-106 H Performed by certified counting machine operator at [facility] URRJYA5150-99-18 07:08:00* Test Item Value Reference Range Interpretation Comments GLUBED (test code = GLUBED) 155 mg/dL 74-106 H Performed by certified counting machine operator at [facility] [id number] 20:19:00* Test Item Value Reference Range Interpretation Comments GLUBED (test code = GLUBED) 276 mg/dL 74-106 H Performed by certified counting machine operator at [facility] [id number] 16:06:00* Test Item Value Reference Range Interpretation Comments GLUBED (test code = GLUBED) 186 mg/dL 74-106 H Performed by certified counting machine operator at [facility] NJMQVJ3381-20-90 11:27:00* Test Item Value Reference Range Interpretation Comments GLUBED (test code = GLUBED) 206 mg/dL 74-106 H Performed by certified counting machine operator at [facility] VQKLYE3270-80-96 08:26:00* Test Item Value Reference Range Interpretation Comments GLUBED (test code = GLUBED) 138 mg/dL 74-106 H Performed by certified counting machine operator at [facility] [id number] 07:19:00* Test Item Value Reference Range Interpretation Comments GLUBED (test code = GLUBED) 71 mg/dL 74-106 L Performed by certified counting machine operator at [facility] [id number] 20:27:00* Test Item Value Reference Range Interpretation Comments GLUBED (test code = GLUBED) 170 mg/dL 74-106 H Performed by certified counting machine operator at [facility] [id number] 16:41:00* Test Item Value Reference Range Interpretation Comments GLUBED (test code = GLUBED) 230 mg/dL 74-106 H Performed by certified counting machine operator at [facility] BASIC METABOLIC [id number] 13:13:00* Test Item Value Reference Range Interpretation [...] 8.5-10.1 N PATIENT NOT IN ROOMBASIC METABOLIC [id number] 13:05:00* Test Item Value Reference Range Interpretation [...] mg/dL 8.5-10.1 PATIENT NOT IN ROOMCBC W/AUTO [id number] 12:44:00* Test Item Value Reference Range Interpretation [...] 0.00 K/mm3 0.0-0.1 N PATIENT NOT IN [id number] 11:15:00* Test Item Value Reference Range Interpretation Comments GLUBED (test code = GLUBED) 266 mg/dL 74-106 H Performed by certified counting machine operator at [facility] OTSCOS2334-02-78 06:59:00* Test Item Value Reference Range Interpretation Comments GLUBED (test code = GLUBED) 149 mg/dL 74-106 H Performed by certified counting machine operator at [facility] [id number] 20:03:00* Test Item Value Reference Range Interpretation Comments GLUBED (test code = GLUBED) 116 mg/dL 74-106 H Performed by certified counting machine operator at [facility] CFLQFW5741-60-20 16:40:00* Test Item Value Reference Range Interpretation Comments GLUBED (test code = GLUBED) 120 mg/dL 74-106 H Performed by certified counting machine operator at [facility] [id number] 16:10:00* Test Item Value Reference Range Interpretation Comments GLUBED (test code = GLUBED) 59 mg/dL 74-106 L Performed by certified counting machine operator at [facility] [id number] 11:16:00* Test Item Value Reference Range Interpretation Comments GLUBED (test code = GLUBED) 208 mg/dL 74-106 H Performed by certified counting machine operator at [facility] [id number] 07:48:00* Test Item Value Reference Range Interpretation Comments GLUBED (test code = GLUBED) 208 mg/dL 74-106 H Performed by certified counting machine operator at [facility] [id number] 11:12:00* Test Item Value Reference Range Interpretation Comments GLUBED (test code = GLUBED) 287 mg/dL 74-106 H Performed by certified counting machine operator at [facility] BASIC METABOLIC [id number] 07:47:00* Test Item Value Reference Range Interpretation [...] code = CA) 9.1 mg/dL 8.5-10.1 N [id number] METABOLIC [id number] 07:35:00* Test Item Value Reference Range Interpretation [...] CALCIUM (test code = CA) mg/dL 8.5-10.1 [id number] W/AUTO [id number] 07:24:00* Test Item Value Reference Range Interpretation [...] DIFF REQUIRED (test code = MDIFF) NO [id number] 07:03:00* Test Item Value Reference Range Interpretation Comments GLUBED (test code = GLUBED) 86 mg/dL 74-106 N Performed by certified counting machine operator at [facility] [id number] 20:25:00* Test Item Value Reference Range Interpretation Comments GLUBED (test code = GLUBED) 207 mg/dL 74-106 H Performed by certified counting machine operator at [facility] [id number] 18:54:00* Test Item Value Reference Range Interpretation Comments GLUBED (test code = GLUBED) 191 mg/dL 74-106 H Performed by certified counting machine operator at [facility] [id number] 11:45:00* Test Item Value Reference Range Interpretation Comments GLUBED (test code = GLUBED) 218 mg/dL 74-106 H Performed by certified counting machine operator at [facility] [id number] 11:45:00* Test Item Value Reference Range Interpretation Comments GLUBED (test code = GLUBED) 152 mg/dL 74-106 H Performed by certified counting machine operator at [facility] [id number] 20:09:00* Test Item Value Reference Range Interpretation Comments GLUBED (test code = GLUBED) 191 mg/dL 74-106 H Performed by certified counting machine operator at [facility] [id number] 16:13:00* Test Item Value Reference Range Interpretation Comments GLUBED (test code = GLUBED) 138 mg/dL 74-106 H Performed by certified counting machine operator at [facility] [id number] 11:09:00* Test Item Value Reference Range Interpretation Comments GLUBED (test code = GLUBED) 230 mg/dL 74-106 H Performed by certified counting machine operator at [facility] [id number] 06:57:00* Test Item Value Reference Range Interpretation Comments GLUBED (test code = GLUBED) 187 mg/dL 74-106 H Performed by certified counting machine operator at [facility] BASIC METABOLIC [id number] 03:42:00* Test Item Value Reference Range Interpretation [...] CA) 8.9 mg/dL 8.5-10.1 N CBC W/AUTO [id number] 03:08:00* Test Item Value Reference Range Interpretation [...] code = NRBC#) 0.00 K/mm3 0.0-0.1 N [id number] 20:47:00* Test Item Value Reference Range Interpretation Comments GLUBED (test code = GLUBED) 268 mg/dL 74-106 H Performed by certified counting machine operator at [facility] BASIC METABOLIC [id number] 16:07:00* Test Item Value Reference Range Interpretation [...] CA) 9.3 mg/dL 8.5-10.1 N BASIC METABOLIC [id number] 15:59:00* Test Item Value Reference Range Interpretation [...] code = CA) mg/dL 8.5-10.1 CBC W/AUTO [id number] 15:47:00* Test Item Value Reference Range Interpretation [...] DIFF REQUIRED (test code = MDIFF) NO [id number] 11:40:00* Test Item Value Reference Range Interpretation Comments GLUBED (test code = GLUBED) 165 mg/dL 74-106 H Performed by certified counting machine operator at [facility] [id number] 07:24:00* Test Item Value Reference Range Interpretation Comments GLUBED (test code = GLUBED) 105 mg/dL 74-106 N Performed by certified counting machine operator at [facility] [id number] 20:11:00* Test Item Value Reference Range Interpretation Comments GLUBED (test code = GLUBED) 200 mg/dL 74-106 H Performed by certified counting machine operator at [facility] [id number] 16:15:00* Test Item Value Reference Range Interpretation Comments GLUBED (test code = GLUBED) 136 mg/dL 74-106 H Performed by certified counting machine operator at [facility] - XR SWLW FUNC W/C [id number] 14:56:00 FAX: Rojelio Padron [place]: B St: ADM Name: TORRES CAN [facility] : [birth year] 57 Age[facility]S: 58/[facility] [address] [facility] [id number] Loc: V.[address] [place] [address] Phys: Rojelio Saldana [facility] Acct: [id number] Dis Date: Status: ADM IN PHONE #: [phone] Exam Date: 03/21/2019 1145 FAX #: [phone] Reason: DYSPHAGIA EXAMS: CPT CODE: [id number] XR SWLW FUNC W/C V 22352 CLINICAL HISTORY: DYSPHAGIA TECHNIQUE: Fluoroscopic swallow function [...] speech pathology report for complete discussion. at 3643 Reported and signed by: Ken Marie MD CC: Rojelio Saldana DO Technologist: RT BRIA(R) Trngulshan Date/Time/By: 03/21/20 19 (8831) : By: [email or web address] Orig Print D/T: S: 03/21/2019 (7065) PAGE 1 Signed Report [id number] 11:15:00* Test Item Value Reference Range Interpretation Comments GLUBED (test code = GLUBED) 241 mg/dL 74-106 H Performed by certified counting machine operator at [facility] [id number] 07:35:00* Test Item Value Reference Range Interpretation Comments GLUBED (test code = GLUBED) 187 mg/dL 74-106 H Performed by certified counting machine operator at [facility] BASIC METABOLIC [id number] 07:18:00* Test Item Value Reference Range Interpretation [...] CA) 8.8 mg/dL 8.5-10.1 N BASIC METABOLIC [id number] 07:08:00* Test Item Value Reference Range Interpretation [...] code = CA) mg/dL 8.5-10.1 CBC W/AUTO [id number] 06:41:00* Test Item Value Reference Range Interpretation [...] code = NRBC#) 0.00 K/mm3 0.0-0.1 N [id number] 20:54:00* Test Item Value Reference Range Interpretation Comments GLUBED (test code = GLUBED) 166 mg/dL 74-106 H Performed by certified counting machine operator at [facility] BASIC METABOLIC [id number] 12:57:00* Test Item Value Reference Range Interpretation [...] CA) 8.8 mg/dL 8.5-10.1 N BASIC METABOLIC [id number] 12:51:00* Test Item Value Reference Range Interpretation [...] code = CA) mg/dL 8.5-10.1 CBC W/AUTO [id number] 12:34:00* Test Item Value Reference Range Interpretation [...] code = NRBC#) 0.00 K/mm3 0.0-0.1 N [id number] 11:18:00* Test Item Value Reference Range Interpretation Comments GLUBED (test code = GLUBED) 198 mg/dL 74-106 H Performed by certified counting machine operator at [facility] - XR HAND 2 V [id number] 09:17:00 FAX: Rojelio Padron [place]: B St: ADM Name: TORRES CAN [facility] : [birth year] 57 Age/S: 58/M [address] [facility] Unit #: [id number] Loc: V.3100 [place] [address] Phys: Rojelio Saldana [facility] Acct: [id number] Dis Date: Status: ADM IN PHONE #: [phone] Exam Date: 03/20/2019 0907 FAX #: [phone] Reason: soreness EXAMS: CPT CODE: [id number] XR HAND 2 V RT 51293 REASON FOR EXAM: soreness EXAM ORDER DATE: 03/20/2019 12:00 AM Ordering Lanette: Hollywood Pek Contreras Les, DO PROCEDURE: - XR [...] By: [email or web address] Orig Print D/T: S: 03/20/2019 (5749) PAGE 1 Signed Report [id number] 07:36:00* Test Item Value Reference Range Interpretation Comments GLUBED (test code = GLUBED) 141 mg/dL 74-106 H Performed by certified counting machine operator at [facility] [id number] 20:01:00* Test Item Value Reference Range Interpretation Comments GLUBED (test code = GLUBED) 213 mg/dL 74-106 H Performed by certified counting machine operator at [facility] [id number] 15:59:00* Test Item Value Reference Range Interpretation Comments GLUBED (test code = GLUBED) 125 mg/dL 74-106 H Performed by certified counting machine operator at [facility] [id number] 11:08:00* Test Item Value Reference Range Interpretation Comments GLUBED (test code = GLUBED) 201 mg/dL 74-106 H Performed by certified counting machine operator at [facility] [id number] 07:32:00* Test Item Value Reference Range Interpretation Comments GLUBED (test code = GLUBED) 165 mg/dL 74-106 H Performed by certified counting machine operator at [facility] [id number] 21:11:00* Test Item Value Reference Range Interpretation Comments GLUBED (test code = GLUBED) 161 mg/dL 74-106 H Performed by certified counting machine operator at [facility] RENAL FUNCTION [id number] 18:01:00* Test Item Value Reference Range Interpretation [...] PHOS) 4.1 mg/dL 2.5-4.9 N RENAL FUNCTION [id number] 17:57:00* Test Item Value Reference Range Interpretation [...] code = PHOS) mg/dL 2.5-4.9 CBC W/O [id number] 16:55:00* Test Item Value Reference Range Interpretation [...] code = MPV) 10.2 fL 6.7-11.0 N [id number] 11:17:00* Test Item Value Reference Range Interpretation Comments GLUBED (test code = GLUBED) 216 mg/dL 74-106 H Performed by certified counting machine operator at [facility] [id number] 11:06:00* Test Item Value Reference Range Interpretation Comments GLUBED (test code = GLUBED) 172 mg/dL 74-106 H Performed by certified counting machine operator at [facility] [id number] 21:30:00* Test Item Value Reference Range Interpretation Comments GLUBED (test code = GLUBED) 246 mg/dL 74-106 H Performed by certified counting machine operator at [facility] [id number] 16:06:00* Test Item Value Reference Range Interpretation Comments GLUBED (test code = GLUBED) 155 mg/dL 74-106 H Performed by certified counting machine operator at [facility] [id number] 11:19:00* Test Item Value Reference Range Interpretation Comments GLUBED (test code = GLUBED) 164 mg/dL 74-106 H Performed by certified counting machine operator at [facility] [id number] 07:25:00* Test Item Value Reference Range Interpretation Comments GLUBED (test code = GLUBED) 125 mg/dL 74-106 H Performed by certified counting machine operator at [facility] [id number] 20:09:00* Test Item Value Reference Range Interpretation Comments GLUBED (test code = GLUBED) 173 mg/dL 74-106 H Performed by certified counting machine operator at [facility] [id number] 16:11:00* Test Item Value Reference Range Interpretation Comments GLUBED (test code = GLUBED) 165 mg/dL 74-106 H Performed by certified counting machine operator at [facility] [id number] 11:08:00* Test Item Value Reference Range Interpretation Comments GLUBED (test code = GLUBED) 127 mg/dL 74-106 H Performed by certified counting machine operator at [facility] [id number] 07:13:00* Test Item Value Reference Range Interpretation Comments GLUBED (test code = GLUBED) 74 mg/dL 74-106 N Performed by certified counting machine operator at [facility] [id number] 19:58:00* Test Item Value Reference Range Interpretation Comments GLUBED (test code = GLUBED) 218 mg/dL 74-106 H Performed by certified counting machine operator at [facility] [id number] 18:17:00* Test Item Value Reference Range Interpretation Comments GLUBED (test code = GLUBED) 199 mg/dL 74-106 H Performed by certified counting machine operator at [facility] CBC W/AUTO [id number] 13:17:00* Test Item Value Reference Range Interpretation [...] code = MDIFF) NO PATIENT NOT IN [id number] 12:13:00* Test Item Value Reference Range Interpretation Comments GLUBED (test code = GLUBED) 139 mg/dL 74-106 H Performed by certified counting machine operator at [facility] [id number] 11:58:00* Test Item Value Reference Range Interpretation Comments GLUBED (test code = GLUBED) 165 mg/dL 74-106 H Performed by certified counting machine operator at [facility] BASIC METABOLIC [id number] 10:51:00* Test Item Value Reference Range Interpretation [...] 8.9 mg/dL 8.5-10.1 N PATIENT NOT IN [id number] 07:06:00* Test Item Value Reference Range Interpretation Comments GLUBED (test code = GLUBED) 117 mg/dL 74-106 H Performed by certified counting machine operator at [facility] [id number] 20:34:00* Test Item Value Reference Range Interpretation Comments GLUBED (test code = GLUBED) 141 mg/dL 74-106 H Performed by certified counting machine operator at [facility] [id number] 16:04:00* Test Item Value Reference Range Interpretation Comments GLUBED (test code = GLUBED) 156 mg/dL 74-106 H Per[facility] by certified counting machine operator [facility]~ [id number] 11:08:00* Test Item Value Reference Range Interpretation Comments GLUBED (test code = GLUBED) 193 mg/dL 74-106 H Performed by certified counting machine operator at [facility] [id number] 07:52:00* Test Item Value Reference Range Interpretation Comments GLUBED (test code = GLUBED) 167 mg/dL 74-106 H [facility] by certified counting machine operator [facility] COMPREHENSIVE METABOLIC [id number] 07:00:00* Test Item Value Reference Range Interpretation [...] due to change in reagent. COMPREHENSIVE METABOLIC [id number] 06:49:00* Test Item Value Reference Range Interpretation [...] code = ALKP) IUnit/L 45-117 CBC W/AUTO [id number] 06:19:00* Test Item Value Reference Range Interpretation [...] DIFF REQUIRED (test code = MDIFF) NO [id number] 20:40:00* Test Item Value Reference Range Interpretation Comments GLUBED (test code = GLUBED) 320 mg/dL 74-106 H Performed by certified counting machine operator at [facility] INFECTION CONTROL [id number] 20:07:00* Test Item Value Reference Range Interpretation Comments HEPATITIS C RNA BY PCR (QUAL) (test code = HCVRNAPCR) Negative Negative Negative: HCV RNA Not DetectedPerformed At: [facility] [address] [id number] Sanjai MD Ph:[phone] AG HEPAT B SURF (test code = HBSAG) Nonreactive Index Nonreactive HEPATITIS B CORE ANTIBODY,TOT (test code = HBCAB) Negative Nega tive Performed At: [facility] [address] [id number] Kyle L MD Ph:[phone] AB HEPATITIS C (test code = HCVAB) <0.1 0.0-0.9 INFCE Result Units: s/co ratio Negative: < 0.8 Indeterminate: 0.8 - 0.9 Positive: > 0.9 The CDC recommends that a positive HCV antibody result be followed up with a HCV Nucleic Acid Amplification test (675155). HIV 1 2 COMBO AG/AB SCREEN (test code = [id number]) AB/AG NO N REACTIVE NONREACTIVE NONREACTIVE HIV P24 ANTI GEN NONREACTIVE NONREACTIVE HIV 1&2 ANTIBODY NONREACTIVE THE HIV-1 P24 TEST HELPS DISTINGUISH ACUTE HIV-1INFECTIONFROM ESTABLISHED HIV-1 INFECTION WHEN THE SPECIMEN ISPOSITIVE FOR HIV-1 P24 ANTIGEN.HIV-1 P24 ANTIGEN IS HIGHEST IN THE FIRST FEW WEEKS AFTERINFECTION - XR CHEST 1 [id number] 19:14:00 FAX: Rojelio Padron [place]: B St: ADM Name: Italo TORRES MCKEON [facility] : [birth year] 57 Age/S: 58/M [address] [facility] Unit #: [id number] Loc: V.[address] [place] [address] Phys: Rojelio Saldana [facility] Acct: [id number] Dis Date: Status: ADM IN PHONE #: [phone] Exam Date: 03/13/2019 1850 FAX #: [phone] Reason: RESP FAILURE EXAMS: CPT CODE: [id number] XR CHEST 1 V 73197 REASON FOR EXAM: RESP FAILURE Exam Order [...] S: 03/13/2019 (1916) PAGE 1 Signed Report [id number] 15:43:00* Test Item Value Reference Range Interpretation Comments GLUBED (test code = GLUBED) 277 mg/dL 74-106 H Performed by certified counting machine operator at [facility] [id number] 12:33:00* Test Item Value Reference Range Interpretation Comments GLUBED (test code = GLUBED) 279 mg/dL 74-106 H Performed by certified counting machine operator at [facility] BASIC METABOLIC [id number] 05:42:00* Test Item Value Reference Range Interpretation [...] CA) 8.8 mg/dL 8.5-10.1 N CBC W/AUTO [id number] 05:36:00* Test Item Value Reference Range Interpretation [...] DIFF REQUIRED (test code = MDIFF) NO [id number] 19:50:00* Test Item Value Reference Range Interpretation Comments GLUBED (test code = GLUBED) 194 mg/dL 74-106 H Performed by certified counting machine operator at [facility] [id number] 19:50:00* Test Item Value Reference Range Interpretation Comments GLUBED (test code = GLUBED) 188 mg/dL 74-106 H Performed by certified counting machine operator at [facility] [id number] 19:49:00* Test Item Value Reference Range Interpretation Comments GLUBED (test code = GLUBED) 161 mg/dL 74-106 H Performed by certified counting machine operator at [facility] [id number] 12:44:00* Test Item Value Reference Range Interpretation Comments GLUBED (test code = GLUBED) 158 mg/dL 74-106 H Performed by certified counting machine operator at [facility] [id number] 08:15:00* Test Item Value Reference Range Interpretation Comments GLUBED (test code = GLUBED) 149 mg/dL 74-106 H Performed by certified counting machine operator at [facility] INFECTION CONTROL [id number] 06:09:00* Test Item Value Reference Range Interpretation [...] with a HCV Nucleic Acid Amplification test (209976). HIV 1 2 COMBO AG/AB SCREEN (test code = [id number]) AB/AG NO N REACTIVE NONREACTIVE NONREACTIVE HIV P24 ANTI GEN NONREACTIVE NONREACTIVE HIV 1&2 ANTIBODY NONREACTIVE THE HIV-1 P24 TEST HELPS DISTINGUISH ACUTE HIV-1INFECTIONFROM ESTABLISHED HIV-1 INFECTION WHEN THE SPECIMEN ISPOSITIVE FOR HIV-1 P24 ANTIGEN.HIV-1 P24 ANTIGEN IS HIGHEST IN THE FIRST FEW WEEKS AFTERINFECTION INFECTION CONTROL [id number] 06:09:00* Test Item Value Reference Range Interpretation Comments HEPATITIS C RNA BY PCR (QUAL) (test code = HCVRNAPCR) Notdetected AG HEPAT B SURF (test code = HBSAG) Nonreactive Index Nonreactive HEPATITIS B CORE ANTIBODY,TOT (test code = HBCAB) Negative Nega tive Performed At: [facility] [address] [id number] Jaret Jiménez MD Ph:[phone] AB HEPATITIS C (test code = HCVAB) <0.1 0.0-0.9 INFCE Result Units: s/co ratio Negative: < 0.8 Indeterminate: 0.8 - 0.9 Positive: > 0.9 The CDC recommends that a positive HCV antibody result be followed up with a HCV Nucleic Acid Amplification test (270703). HIV 1 2 COMBO AG/AB SCREEN (test code = [id number]) AB/AG NO N REACTIVE NONREACTIVE NONREACTIVE HIV P24 ANTI GEN NONREACTIVE NONREACTIVE HIV 1&2 ANTIBODY NONREACTIVE THE HIV-1 P24 TEST HELPS DISTINGUISH ACUTE HIV-1INFECTIONFROM ESTABLISHED HIV-1 INFECTION WHEN THE SPECIMEN ISPOSITIVE FOR HIV-1 P24 ANTIGEN.HIV-1 P24 ANTIGEN IS HIGHEST IN THE FIRST FEW WEEKS AFTERINFECTION BASIC METABOLIC [id number] 03:04:00* Test Item Value Reference Range Interpretation [...] CA) 8.5 mg/dL 8.5-10.1 N BASIC METABOLIC [id number] 02:54:00* Test Item Value Reference Range Interpretation [...] code = CA) mg/dL 8.5-10.1 CBC W/AUTO [id number] 02:41:00* Test Item Value Reference Range Interpretation [...] DIFF REQUIRED (test code = MDIFF) NO [id number] 20:50:00* Test Item Value Reference Range Interpretation Comments GLUBED (test code = GLUBED) 128 mg/dL 74-106 H Performed by certified counting machine operator at [facility] [id number] 18:16:00* Test Item Value Reference Range Interpretation Comments GLUBED (test code = GLUBED) 172 mg/dL 74-106 H Performed by certified counting machine operator at [facility] [id number] 18:16:00* Test Item Value Reference Range Interpretation Comments GLUBED (test code = GLUBED) 172 mg/dL 74-106 H Performed by certified counting machine operator at [facility] EXTREMITY AMP.,FXB-[id number] 14:33:00 RUN DATE: 03/11/19 [facility] - Lab PAGE 1 RUN TIME: 1433 Specimen Inqui ry RUN USER: INTERFACE PATIENT: TORRES MAI ACCT #: [id number] [facility] #: [id number] AGE/SX: 58/M ROOM: [facility] RE02/19/19ODESSA DR: Slava Gustafson MD : 56 BED: A DIS: STATUS: ADM IN TLOC: SPEC #: [id number] RECD: 03/06/19 STATUS: SOUT REQ #: [id number] ANNETTE: 03/05/[address] [facility] [address]: Jaqueline Roberts MD ENTERED: 03/06/19 SP TYPE: EXTREMITY OTHR DR: Rebeka Lugo DPM Franklin Morse DPTeddy Quezada MD, am,Jaqueline Saldana,Sana العراقي Pek Contreras DO Jd Womack MD,Shayan Salazar,Eric boss,Jayson Tejeda,Andrew Ibarra MDORDERED: GROSS COPIES TO: Josue Lugo DPM [address] [place] [address] Conor Morse DPM [address] [place], [place] [address] Teddy Lim MD [address] [place] [address] Jaqueline Roberts MD [address] [place] [address] Rojelio Saldana Pek Contreras DO [address] [place] [address] [place] [address] [facility] [address] [place], [place] [id number] CONTINUED ON NEXT PAGE RUN DATE: [facility] PAGE 2 RUN TIME: 1433 Specimen Inquiry RU N USER: INTERFACE ---- --------SPEC #: [id number] PATIENT: TORRES MAI #[id number] (Continued) COPIES TO: (Continued) Shayan Macdonald MD [address] [facility] [address] [place] [address] Eric Cano MD [address] [place] [address] Jayson Veloz MD [address] [address] [phone] Andrew Taylor MD [address] [facility] [address] [place] [address] PROCEDURES: GROSS (03/11/19-1008) TISSUES: RIGHT LEG - LOWER CLINICAL HISTORY COLLECTION DATE: 03/05/2019 OSTEOMYEL ITIS FINAL DIAGNOSIS Right lower leg, below knee amputation: U LCERATION WITH MARKED ACUTE INFLAMMATION, NECROSIS, FIBROSIS AND FAT NE CROSIS MARKED ATHEROSCLEROTIC CHANGES VIABLE SURGICAL MARGIN NEGATIVE FOR MALIGNANCY FA/sm D [address], [address] CONTINUED ON NEXT PAGE RUN DATE: 03/11/19 [facility] PAGE 3 RUN TIME: 14 33 Specimen Inquiry RUN USER: INTE FANNY SPEC #: [id number] PATIENT: TORRES MAI #[id number] (Co ntinued) MACROSCOPIC The specimen is received [...] section through area of ulcer ation/necrosis; 1B- service support representative proximal soft tissue margin en face; 1C- se ction of vessels, decal GROSS PERFORMED AT [facility] [address] [facility], [place] [address] ([phone] MICROSCOPIC All of the stains, including any controls performed, stain appropriately. MICROSCOPIC PERFORMED AT [facility] [address] [place] [address] ([phone] PERFORMING SITE Diagnosis performed at : [facility] [place] [facility] [address] [facility], [place] [address] CONTINUED ON NEXT PAGE RUN DATE: 03/11/19 [facility] PAGE 4 RUN TIME: 1433 Specimen Inquiry RUN USER: INTERFACE -- SPEC #: [id number] PATIENT: VASILETORRES #[id number] (Continued) Signed SIGNATURE ON FILE Hitesh Dougherty MD 03/11/19 1433 END OF REPORT [id number] 09:24:00* Test Item Value Reference Range Interpretation Comments GLUBED (test code = GLUBED) 57 mg/dL 74-106 L Performed by certified counting machine operator at [facility] BASIC METABOLIC [id number] 03:16:00* Test Item Value Reference Range Interpretation [...] CA) 8.5 mg/dL 8.5-10.1 N CBC W/AUTO [id number] 02:30:00* Test Item Value Reference Range Interpretation [...] NRBC#) 0.00 K/mm3 0.0-0.1 N INFECTION CONTROL [id number] 21:47:00* Test Item Value Reference Range Interpretation Comments HEPATITIS C RNA BY PCR (QUAL) (test code = HCVRNAPCR) Notdetected AG HEPAT B SURF (test code = HBSAG) Nonreactive Index Nonreactive HEPATITIS B CORE ANTIBODY,TOT (test code = HBCAB) NEGA TIVE AB HEPATITIS C (test code = HCVAB) NEGATIVE HIV 1 2 COMBO AG/AB SCREEN (test code = [id number]) AB/AG NO N REACTIVE NONREACTIVE NONREACTIVE HIV P24 ANTI GEN NONREACTIVE NONREACTIVE HIV 1&2 ANTIBODY NONREACTIVE THE HIV-1 P24 TEST HELPS DISTINGUISH ACUTE HIV-1INFECTIONFROM ESTABLISHED HIV-1 INFECTION WHEN THE SPECIMEN ISPOSITIVE FOR HIV-1 P24 ANTIGEN.HIV-1 P24 ANTIGEN IS HIGHEST IN THE FIRST FEW WEEKS AFTERINFECTION INFECTION CONTROL [id number] 21:46:00* Test Item Value Reference Range Interpretation Comments HEPATITIS C RNA BY PCR (QUAL) (test code = HCVRNAPCR) Notdetected AG HEPAT B SURF (test code = HBSAG) Index Nonreactive HEPATITIS B CORE ANTIBODY,TOT (test code = HBCAB) NEGA TIVE AB HEPATITIS C (test code = HCVAB) NEGATIVE HIV 1 2 COMBO AG/AB SCREEN (test code = [id number]) AB/AG NO N REACTIVE NONREACTIVE NONREACTIVE HIV P24 ANTI GEN NONREACTIVE NONREACTIVE HIV 1&2 ANTIBODY NONREACTIVE THE HIV-1 P24 TEST HELPS DISTINGUISH ACUTE HIV-1INFECTIONFROM ESTABLISHED HIV-1 INFECTION WHEN THE SPECIMEN ISPOSITIVE FOR HIV-1 P24 ANTIGEN.HIV-1 P24 ANTIGEN IS HIGHEST IN THE FIRST FEW WEEKS AFTERINFECTION INFECTION CONTROL [id number] 21:27:00* Test Item Value Reference Range Interpretation Comments HEPATITIS C RNA BY PCR (QUAL) (test code = HCVRNAPCR) Notdetected AG HEPAT B SURF (test code = HBSAG) Index Nonreactive HEPATITIS B CORE ANTIBODY,TOT (test code = HBCAB) NEGA TIVE AB HEPATITIS C (test code = HCVAB) NEGATIVE HIV 1 2 COMBO AG/AB SCREEN (test code = [id number]) AB/AG NO N REACTIVE NONREACTIVE NONREACTIVE HIV P24 ANTI GEN NONREACTIVE NONREACTIVE HIV 1&2 ANTIBODY NONREACTIVE THE HIV-1 P24 TEST HELPS DISTINGUISH ACUTE HIV-1INFECTIONFROM ESTABLISHED HIV-1 INFECTION WHEN THE SPECIMEN ISPOSITIVE FOR HIV-1 P24 ANTIGEN.RESULTS CALLED TO SHEY MATTSON BY SHEYJP1 03/10/19 2127HIV-1 P24 ANTIGEN IS HIGHEST IN THE FIRST FEW WEEKS AFTERINFECTION [id number] 20:32:00* Test Item Value Reference Range Interpretation Comments GLUBED (test code = GLUBED) 223 mg/dL 74-106 H Performed by certified counting machine operator at [facility] [id number] 15:58:00* Test Item Value Reference Range Interpretation Comments GLUBED (test code = GLUBED) 173 mg/dL 74-106 H Performed by certified counting machine operator at [facility] [id number] 11:54:00* Test Item Value Reference Range Interpretation Comments GLUBED (test code = GLUBED) 177 mg/dL 74-106 H Performed by certified counting machine operator at [facility] - SP FLUORO GUID CTRL ACC [id number] 09:56:00 Name: TORRES MAI [facility] : 1960 Age/S: 58 / M [address] [facility] Unit #: [id number] Loc: AKOS[place] Perez [address] Phys: Slava Gustafson MD Acct: [id number] Dis Date: Status: ADM IN PHONE #: [phone] Exam Date: 03/06/2019 0947 FAX #: [phone] Reason: / EXAMS: CPT CODE: [id number] SP FLUORO GUID CTRL ACC DEV 10351 Fluoro Time: 21 DAP (Gy m2): 0.73 [...] monitored by a trained registered nurse. Physician ogvz-nt-djqk sedation time was 15 minutes. After obtaining [...] 1 Signed Report (CONTINUED) Name: TORRES MAI [facility] : 1960 Age/S: 58 / M [address] Unit #: [id number] Loc: [place] [address] Phys: Slava Gustafson MD Acct: [id number] Dis Date: Status: ADM IN PHONE #: [phone] Exam Date: 03/06/2019 0947 FAX #: [phone] Reason: / EXAMS: CPT CODE: [id number] SP FLUORO GUID CTRL ACC DEV 55562 Fluoro Time: 21 DAP (Gy m2): 0.73 Air Kerma (mGy): 2 <Continued> CC: Slava Gustafson MD Technologist: JAQUELINE LING [facility] Trnscb Date/Time: 03/10/2019 (0956) Thang Orig Print D/T: S: 03/10/2019 (0959) PAGE 2 Signed Report - US GUIDANCE VASC [id number] 09:56:00 Name: TORRES MAI [facility] : 1960 Age/S: 58 / M [address] Unit #: [id number] Loc: [place] [address] Phys: Slava Gustafson MD Acct: [id number] Dis Date: Status: ADM IN PHONE #: [phone] Exam Date: 03/06/2019 0947 FAX #: [phone] Reason: / EXAMS: CPT CODE: [id number] US GUIDANCE VASC ACCESS 45825 Fluoro Time: DAP (Gy m2): Air Kerma [...] monitored by a trained registered nurse. Physician ahcu-ol-mbbm sedation time was 15 minutes. After obtaining [...] 1 Signed Report (CONTINUED) Name: TORRES MAI [facility] : 1960 Age/S: 58 / M [address] Unit #: [id number] Loc: [place] [address] Phys: Slava Gustafson MD Acct: [id number] Dis Date: Status: ADM IN PHONE #: [phone] Exam Date: 03/06/201947 FAX #: [phone] Reason: / EXAMS: CPT CODE: [id number] US GUIDANCE VASC ACCESS 84388 Fluoro Time: DAP (Gy m2): Air Kerma (mGy): <Continued> CC: Slava Gustafson MD Technologist: JAQUELINE LING [employer]INE[employer] Trnscb Date/Time: 03/10/2019 (0956) [email or web address] Orig Print D/T: S: 03/10/2019 (0959) PAGE 2 Signed Report [id number] 08:05:00* Test Item Value Reference Range Interpretation Comments GLUBED (test code = GLUBED) 111 mg/dL 74-106 H Performed by certified counting machine operator at [facility] BASIC METABOLIC [id number] 06:04:00* Test Item Value Reference Range Interpretation [...] CA) 8.0 mg/dL 8.5-10.1 L BASIC METABOLIC [id number] 05:54:00* Test Item Value Reference Range Interpretation [...] code = CA) 8.0 mg/dL 8.5-10.1 L [id number] 21:06:00* Test Item Value Reference Range Interpretation Comments GLUBED (test code = GLUBED) 177 mg/dL 74-106 H Performed by certified counting machine operator at [facility] [id number] 15:43:00* Test Item Value Reference Range Interpretation Comments GLUBED (test code = GLUBED) 155 mg/dL 74-106 H Performed by certified counting machine operator at [facility] [id number] 12:14:00* Test Item Value Reference Range Interpretation Comments GLUBED (test code = GLUBED) 131 mg/dL 74-106 H Performed by certified counting machine operator at [facility] [id number] 08:08:00* Test Item Value Reference Range Interpretation Comments GLUBED (test code = GLUBED) 117 mg/dL 74-106 H Performed by certified counting machine operator at [facility] BASIC METABOLIC [id number] 04:24:00* Test Item Value Reference Range Interpretation [...] CA) 8.2 mg/dL 8.5-10.1 L BASIC METABOLIC [id number] 04:19:00* Test Item Value Reference Range Interpretation [...] code = CA) mg/dL 8.5-10.1 CBC W/AUTO [id number] 03:34:00* Test Item Value Reference Range Interpretation [...] DIFF REQUIRED (test code = MDIFF) NO [id number] 20:12:00* Test Item Value Reference Range Interpretation Comments GLUBED (test code = GLUBED) 278 mg/dL 74-106 H Performed by certified counting machine operator at [facility] [id number] 17:02:00* Test Item Value Reference Range Interpretation Comments GLUBED (test code = GLUBED) 299 mg/dL 74-106 H Performed by certified counting machine operator at [facility] [id number] 13:26:00* Test Item Value Reference Range Interpretation Comments GLUBED (test code = GLUBED) 241 mg/dL 74-106 H Performed by certified counting machine operator at [facility] [id number] 08:33:00* Test Item Value Reference Range Interpretation Comments GLUBED (test code = GLUBED) 135 mg/dL 74-106 H Performed by certified counting machine operator at [facility] HEPATITIS B CORE ANTIBODY,[id number] 07:13:00* Test Item Value Reference Range Interpretation Comments HEPATITIS B CORE ANTIBODY,TOT (test code = HBCAB) Negative Nega tive Performed At: [facility] [address] [id number] Kyle L MD Ph:[phone] AB HEPATITIS B [id number] 04:07:00* Test Item Value Reference Range Interpretation Comments AB HEPATITIS B SURFACE (test code = HBSAB) Non Reactive () Non Reactive: Inconsistent with immunity, less than 10 mIU/mL Reactive: Consistent with immunity, greater than 9.9 mIU/mL HEPATITIS B CORE ANTIBODY,[id number] 04:07:00* Test Item Value Reference Range Interpretation Comments HEPATITIS B CORE ANTIBODY,IGM (test code = HBCMAB) NEG ATIVE AB HEPATITIS B [id number] 04:07:00* Test Item Value Reference Range Interpretation Comments AB HEPATITIS B SURFACE (test code = HBSAB) Non Reactive () Non Reactive: Inconsistent with immunity, less than 10 mIU/mL Reactive: Consistent with immunity, greater than 9.9 mIU/mL HEPATITIS B CORE ANTIBODY,[id number] 04:07:00* Test Item Value Reference Range Interpretation Comments HEPATITIS B CORE ANTIBODY,IGM (test code = HBCMAB) Negative Neg ative Performed At: [facility] [address] [id number] Jiménez MD Ph:[phone] BASIC METABOLIC [id number] 03:12:00* Test Item Value Reference Range Interpretation [...] CA) 8.5 mg/dL 8.5-10.1 N CBC W/AUTO [id number] 03:03:00* Test Item Value Reference Range Interpretation [...] DIFF REQUIRED (test code = MDIFF) NO [id number] 20:32:00* Test Item Value Reference Range Interpretation Comments GLUBED (test code = GLUBED) 228 mg/dL 74-106 H Performed by certified counting machine operator at [facility] [id number] 16:07:00* Test Item Value Reference Range Interpretation Comments GLUBED (test code = GLUBED) 238 mg/dL 74-106 H Performed by certified counting machine operator at [facility] [id number] 12:14:00* Test Item Value Reference Range Interpretation Comments GLUBED (test code = GLUBED) 228 mg/dL 74-106 H Performed by certified counting machine operator at [facility] [id number] 08:16:00* Test Item Value Reference Range Interpretation Comments GLUBED (test code = GLUBED) 224 mg/dL 74-106 H Performed by certified counting machine operator at [facility] BASIC METABOLIC [id number] 03:20:00* Test Item Value Reference Range Interpretation [...] CA) 8.3 mg/dL 8.5-10.1 L BASIC METABOLIC [id number] 03:06:00* Test Item Value Reference Range Interpretation [...] code = CA) mg/dL 8.5-10.1 CBC W/AUTO [id number] 01:59:00* Test Item Value Reference Range Interpretation [...] DIFF REQUIRED (test code = MDIFF) NO [id number] 20:24:00* Test Item Value Reference Range Interpretation Comments GLUBED (test code = GLUBED) 254 mg/dL 74-106 H Performed by certified counting machine operator at [facility] [id number] 15:38:00* Test Item Value Reference Range Interpretation Comments GLUBED (test code = GLUBED) 181 mg/dL 74-106 H Performed by certified counting machine operator at [facility] BASIC METABOLIC [id number] 11:10:00* Test Item Value Reference Range Interpretation [...] CA) 8.3 mg/dL 8.5-10.1 L BASIC METABOLIC [id number] 11:08:00* Test Item Value Reference Range Interpretation [...] mg/dL 8.5-10.1 L - XR CHEST 1 [id number] 10:23:00 FAX: Slava Gustafson MD [phone] [place]: St: [facility] FAX: Jd Montalvo MD [phone] Name: TORRES MAI [facility] : 1960 Age/S: 58/M [address] [facility] Unit #: [id number] Loc: [address] [place] [address] Phys: Jd Womack MD Acct: [id number] Dis Date: Status: ADM IN PHONE #: [phone] Exam Date: 03/06/2019 1005 FAX #: [phone] Reason: hypoxemia EXAMS: CPT CODE: [id number] XR CHEST 1 V 80247 REASON FOR EXAM: hypoxemia Exam Order Date: [...] By: [email or web address] Orig Print D/T: S: 03/06/2019 (5676) PAGE 1 Signed Report [id number] 08:30:00* Test Item Value Reference Range Interpretation Comments GLUBED (test code = GLUBED) 129 mg/dL 74-106 H Performed by certified counting machine operator at [facility] PROTHROMBIN [id number] 07:45:00* Test Item Value Reference Range Interpretation [...] PHLEBO TOMIST: NEED FOR SURGERY 03/06/19THROMBOPLASTIN TIME [id number] 07:45:00 * Test Item Value Reference Range Interpretation Comments THROMBOPLASTIN TIME PARTIAL (test code = PTT) 33.7 seconds 25.0-36. 5 N IS PATIENT ON ANTICOAGULANTS? YLIST ANTICOAGULANTS HEPARINCOMMENTS TO PHLEBO TOMIST: NEED FOR SURGERY 03/06/19CBC W/AUTO [id number] 06:42:00* Test Item Value Reference Range Interpretation [...] NRBC#) 0.00 K/mm3 0.0-0.1 N CBC W/AUTO [id number] 02:38:00* Test Item Value Reference Range Interpretation [...] NRBC#) 0.00 K/mm3 0.0-0.1 N BASIC METABOLIC [id number] 02:36:00* Test Item Value Reference Range Interpretation [...] code = CA) 8.5 mg/dL 8.5-10.1 N [id number] 02:36:00* Test Item Value Reference Range Interpretation Comments MAGNESIUM (test code = MAG) 2.3 mg/dL 1.8-2.4 N [id number] 20:37:00* Test Item Value Reference Range Interpretation Comments GLUBED (test code = GLUBED) 142 mg/dL 74-106 H Performed by certified counting machine operator at [facility] [id number] 17:48:00* Test Item Value Reference Range Interpretation Comments GLUBED (test code = GLUBED) 124 mg/dL 74-106 H Performed by certified counting machine operator at [facility] [id number] 12:40:00* Test Item Value Reference Range Interpretation Comments GLUBED (test code = GLUBED) 97 mg/dL 74-106 N [facility] certified counting machine [facility] AG HEPAT B [id number] 11:27:00* Test Item Value Reference Range Interpretation Comments AG HEPAT B SURF (test code = HBSAG) Nonreactive Index Nonreactive URIC [id number] 10:57:00* Test Item Value Reference Range Interpretation Comments URIC ACID (test code = URIC) 4.8 mg/dL 2.6-7.2 N [id number] 08:40:00* Test Item Value Reference Range Interpretation Comments GLUBED (test code = GLUBED) 107 mg/dL 74-106 H Performed by certified counting machine operator [facility] HGB [id number] 05:36:00* Test Item Value Reference Range Interpretation Comments HEMOGLOBIN (test code = HGB) 8.6 gram/dL 13.0-17.5 L HEMATOCRIT (test code = HCT) 27.5 % 42.0-52.0 L BASIC METABOLIC [id number] 05:20:00* Test Item Value Reference Range Interpretation [...] CA) 8.8 mg/dL 8.5-10.1 N RENAL FUNCTION [id number] 05:20:00* Test Item Value Reference Range Interpretation Comments ALBUMIN (test code = ALB) 1.7 g/dL 3.4-5.0 L PHOSPHORUS (test code = PHOS) 4.2 mg/dL 2.5-4.9 N [id number] 20:46:00* Test Item Value Reference Range Interpretation Comments GLUBED (test code = GLUBED) 141 mg/dL 74-106 H Performed by certified counting machine operator at [facility] [id number] 20:46:00* Test Item Value Reference Range Interpretation Comments GLUBED (test code = GLUBED) 170 mg/dL 74-106 H Performed by certified counting machine operator at [facility] [id number] 20:37:00* Test Item Value Reference Range Interpretation Comments GLUBED (test code = GLUBED) 231 mg/dL 74-106 H Performed by certified counting machine operator at [facility] [id number] 08:23:00* Test Item Value Reference Range Interpretation Comments GLUBED (test code = GLUBED) 136 mg/dL 74-106 H Performed by certified counting machine operator at [facility] BASIC METABOLIC [id number] 06:34:00* Test Item Value Reference Range Interpretation [...] CA) 8.9 mg/dL 8.5-10.1 N CBC W/AUTO [id number] 06:02:00* Test Item Value Reference Range Interpretation [...] code = NRBC#) 0.00 K/mm3 0.0-0.1 N [id number] 20:59:00* Test Item Value Reference Range Interpretation Comments GLUBED (test code = GLUBED) 121 mg/dL 74-106 H Performed by certified counting machine operator at [facility] [id number] 16:04:00* Test Item Value Reference Range Interpretation Comments GLUBED (test code = GLUBED) 116 mg/dL 74-106 H Performed by certified counting machine operator at [facility] [id number] 11:19:00* Test Item Value Reference Range Interpretation Comments GLUBED (test code = GLUBED) 213 mg/dL 74-106 H Performed by certified counting machine operator at [facility] CBC W/AUTO [id number] 08:57:00* Test Item Value Reference Range Interpretation [...] (test code = MDIFF) NO BASIC METABOLIC [id number] 08:08:00* Test Item Value Reference Range Interpretation [...] code = CA) 8.5 mg/dL 8.5-10.1 N [id number] 08:04:00* Test Item Value Reference Range Interpretation Comments GLUBED (test code = GLUBED) 207 mg/dL 74-106 H Performed by certified counting machine operator at [facility] [id number] 20:50:00* Test Item Value Reference Range Interpretation Comments GLUBED (test code = GLUBED) 117 mg/dL 74-106 H Performed by certified counting machine operator at [facility] [id number] 17:33:00* Test Item Value Reference Range Interpretation Comments GLUBED (test code = GLUBED) 118 mg/dL 74-106 H Performed by certified counting machine operator at [facility] [id number] 11:53:00* Test Item Value Reference Range Interpretation Comments GLUBED (test code = GLUBED) 135 mg/dL 74-106 H Performed by certified counting machine operator at [facility] [id number] 11:48:00* Test Item Value Reference Range Interpretation Comments GLUBED (test code = GLUBED) 155 mg/dL 74-106 H Performed by certified counting machine operator at [facility] - XR CHEST 1 [id number] 08:27:00 FAX: Slava Gustafson MD [phone] [place]: B St: ADM FAX: Jose Francisco Aguilar MD [phone] Name: TORRES MAI [facility] : 1960 Age/S: 58/M [address] [facility] Unit #: [id number] Loc: V.4[address] [place] [address] Phys: Jose Francisco Cao MD Acct: [id number] Dis Date: Status: ADM IN PHONE #: [phone] Exam Date: 03/02/2019750 FAX #: [phone] Reason: COMPLAINTS OF sob EXAMS: CPT CODE: [id number] XR CHEST 1 V 60357 REASON FOR EXAM: COMPLAINTS OF sob EXAM [...] M.D. Technologist: Lora Blank(Vick) Trnscrd Date/Time/By: 03/02/2019 (3957) : By: Bernie Orig Print D/T: S: 03/02/2019 (5809) PAGE 1 Signed Report CBC W/AUTO [id number] 06:13:00* Test Item Value Reference Range Interpretation [...] (test code = MDIFF) NO COMPREHENSIVE METABOLIC [id number] 06:00:00* Test Item Value Reference Range Interpretation [...] due to change in reagent. COMPREHENSIVE METABOLIC [id number] 05:52:00* Test Item Value Reference Range Interpretation [...] TOTAL (test code = ALKP) IUnit/L 45-117 [id number] 20:09:00* Test Item Value Reference Range Interpretation Comments GLUBED (test code = GLUBED) 165 mg/dL 74-106 H [facility] certified counting machine operator [facility] [id number] 19:06:00* Test Item Value Reference Range Interpretation Comments GLUBED (test code = GLUBED) 161 mg/dL 74-106 H Performed by certified counting machine operator at [facility] [id number] 19:06:00* Test Item Value Reference Range Interpretation Comments GLUBED (test code = GLUBED) 267 mg/dL 74-106 H Performed by certified counting machine operator at [facility] ARTERIAL BLOOD [id number] 14:54:00* Test Item Value Reference Range Interpretation [...] = O2CT) 10.5 % vol 18.0-22.0 L [id number] 07:57:00* Test Item Value Reference Range Interpretation Comments GLUBED (test code = GLUBED) 135 mg/dL 74-106 H Performed by certified counting machine operator at [facility] [id number] 20:28:00* Test Item Value Reference Range Interpretation Comments GLUBED (test code = GLUBED) 191 mg/dL 74-106 H Performed by certified counting machine operator at [facility] [id number] 15:58:00* Test Item Value Reference Range Interpretation Comments GLUBED (test code = GLUBED) 161 mg/dL 74-106 H Performed by certified counting machine operator at [facility] [id number] 11:26:00* Test Item Value Reference Range Interpretation Comments GLUBED (test code = GLUBED) 235 mg/dL 74-106 H Performed by certified counting machine operator at [facility] [id number] 10:41:00* Test Item Value Reference Range Interpretation Comments PREALBUMIN (test code = PREALB) 10.0 mg/dL 16.0-40.0 L [id number] 10:40:00* Test Item Value Reference Range Interpretation Comments PREALBUMIN (test code = PREALB) 10.0 mg/dL 16.0-40.0 L [id number] 07:57:00* Test Item Value Reference Range Interpretation Comments GLUBED (test code = GLUBED) 313 mg/dL 74-106 H Performed by certified counting machine operator [facility] COMPREHENSIVE METABOLIC [id number] 07:04:00* Test Item Value Reference Range Interpretation [...] due to change in reagent. COMPREHENSIVE METABOLIC [id number] 06:56:00* Test Item Value Reference Range Interpretation [...] code = ALKP) IUnit/L 45-117 CBC W/AUTO [id number] 06:38:00* Test Item Value Reference Range Interpretation [...] DIFF REQUIRED (test code = MDIFF) NO [id number] 05:15:00* Test Item Value Reference Range Interpretation Comments GLUBED (test code = GLUBED) 293 mg/dL 74-106 H Performed by certified counting machine operator at [facility] [id number] 01:20:00* Test Item Value Reference Range Interpretation Comments GLUBED (test code = GLUBED) 276 mg/dL 74-106 H Performed by certified counting machine operator at [facility] UR CREATININE CLEARANCE [id number] 20:02:00* Test Item Value Reference Range Interpretation Comments CREATININE CLEARANCE RESULT (test code = CREATCLR) 5 mL/min 100 -120 L CREATININE (test code = CREAT) 3.70 mg/dL 0.7-1.3 H UR CREATININE RANDOM (test code = CREATU) 135.0 mg/dL 30-125 H UR VOLUME 24HR (test code = VOL) 200 mL/24hrs 9672-2390 TV-200UR CREATININE CLEARANCE [id number] 20:01:00* Test Item Value Reference Range Interpretation Comments CREATININE CLEARANCE RESULT (test code = CREATCLR) mL/min 100 -120 CREATININE (test code = CREAT) mg/dL 0.7-1.3 UR CREATININE RANDOM (test code = CREATU) 135.0 mg/dL 30-125 H UR VOLUME 24HR (test code = VOL) mL/24hrs 1337-7649 [id number] 16:04:00* Test Item Value Reference Range Interpretation Comments GLUBED (test code = GLUBED) 301 mg/dL 74-106 H Performed by certified counting machine operator [facility] PLEURAL [id number] 15:37:00 RUN DATE: 02/27/19 [facility] PAGE 1 RUN TIME: 1537 Specimen Inqui ry RUN USER: INTERFACE PATIENT: TORRES MAI ACCT #: [id number] [facility] U #: [id number] AGE/SX: 58/M ROOM: [facility] RE02/19/19[facility] DR: Slava Gustafson MD : 56 BED: A DIS: STATUS: ADM IN TLOC: SPEC #: [id number] RECD: 02/26/19 STATUS: VIANEY REQ #: [id number] ANNETTE: 02/26/[address] [facility] [address]: Bala Jimenez MD ENTERED: 02/26/19 SP TYPE: PLEURAL FL OTHR DR: Pattie Lay zulema or Family Physician Franklin Morse DPM, Tahir MD L am,Jaqueline Salazar ,Eric Veloz,Andrew Perkins MD, MDORDERED: GROSS COPIES TO: No Primary or Family Physician Franklin Morse DPM [address] [place] [address] Teddy Lim MD [address] [place] [address] Jaqueline Roberts MD [address] [place] [phone] Kathy Jimenez MD [address] [place] [address] Tristan Salazar MD [address] [facility] [address] [place] [address] Jayson Veloz MD [address] [place] [address] CONTINUED ON NEXT PAGE RUN DATE: 02/27/19 [facility] PAGE 2 RUN TIME: 1537 Specimen Inquiry RUN USER: INTERFACE - SPEC #: [id number] PATIENT: TORRES MAI #[id number] (Continued) COPIES TO: (Continued) Azul Taylor MD [address] [facility] [address] [place], [place] [id number] PROCEDU RES: GROSS (02/27/19-1517) TISSUES: PLEURAL FLUID, NOS - 7 ML YELLOW CLINICAL HISTORY COLLECTION DATE: 02/26/19 PLEURAL EFFUSIONS FINAL DIAGNOSIS Right pleural fluid for cytology, thoracentesis: M ESOTHELIAL CELLS, MACROPHAGES, AND WHITE BLOOD CELLS NEGATIVE FOR MALIGNA NCY DMW/joyce D 67697, [address] MACROSCOPIC The specim en consists of 7 mL of yellow fluid to be concentrated and processed for cytol ogic evaluation. A cell block is prepared. GROSS PERFORMED AT [facility] [address] [place] [address] (P)[phone] MICROSCOPIC All of the s tains, including any controls performed, stain appropriately. MICROSCOPI C PERFORMED AT [facility] [address] [place] [address] (P)[phone] CONTINUED ON NEXT PAGE RUN DATE: 02/27/19 [facility] PAGE 3 RUN TIME: 1537 Specimen Inquiry RUN USER: INTERFACE SPEC #: [id number] PATIENT: TORRES MAI #[id number] (Continued)----- ------- PERFORMING SITE Diagnosis performed at: [facility] [address] [place] [address] Signed RAMOS PERDUE ON FILE Adriana Marin MD 02/27/19 1537 --------- --- EN D OF REPORT PLEURAL FLD CELL [id number] 13:37:00* Test Item Value Reference Range Interpretation [...] REVIEWED BY (test code = REVIEW) MOISÉS QUIROSOTHY PATHOLOGIST SPECIMEN COMMENTS: RIGHT PLEURAL FLUIDPLEURAL FLD [id number] 13:37:00* Test Item Value Reference Range Interpretation Comments PLEURAL FLD PH (test code = PHPL) 7.0 SPECIMEN COMMENTS: RIGHT PLEURAL FLUIDPLEURAL FLD [id number] 13:37:00* Test Item Value Reference Range Interpretation Comments PLEURAL FLD GLUCOSE (test code = GLUPL) 137 MG/DL SPECIMEN COMMENTS: RIGHT PLEURAL FLUIDPLEURAL FLD TOTAL [id number] 13:37:00* Test Item Value Reference Range Interpretation Comments PLEURAL FLD TOTAL PROTEIN (test code = PROTPL) 1.8 gram/dL SPECIMEN COMMENTS: RIGHT PLEURAL FLUIDPLEURAL FLD [id number] 13:37:00* Test Item Value Reference Range Interpretation Comments PLEURAL FLD LDH (test code = LDHPL) 87 IUnit/L SPECIMEN COMMENTS: RIGHT PLEURAL FLUIDPLEURAL FLD [id number] 13:37:00 * Test Item Value Reference Range Interpretation Comments PLEURAL FLD CHOLESTEROL (test code = CHOLPL) < 50 MG/DL SPECIMEN COMMENTS: RIGHT PLEURAL FLUIDPLEURAL FLD [id number] 13:37:00* Test Item Value Reference Range Interpretation Comments PLEURAL FLD TRIGLYCERIDE (test code = TRIGPL) 10 MG/DL SPECIMEN COMMENTS: RIGHT PLEURAL [id number] 11:20:00* Test Item Value Reference Range Interpretation Comments GLUBED (test code = GLUBED) 256 mg/dL 74-106 H Performed by certified counting machine operator at [facility] COMPREHENSIVE METABOLIC [id number] 10:32:00* Test Item Value Reference Range Interpretation [...] due to change in reagent. COMPREHENSIVE METABOLIC [id number] 10:22:00* Test Item Value Reference Range Interpretation [...] code = ALKP) IUnit/L 45-117 CBC W/AUTO [id number] 10:07:00* Test Item Value Reference Range Interpretation [...] code = NRBC#) 0.00 K/mm3 0.0-0.1 N [id number] 07:27:00* Test Item Value Reference Range Interpretation Comments GLUBED (test code = GLUBED) 201 mg/dL 74-106 H Performed by certified counting machine operator at [facility] [id number] 06:19:00* Test Item Value Reference Range Interpretation Comments GLUBED (test code = GLUBED) 233 mg/dL 74-106 H Performed by certified counting machine operator at [facility] [id number] 20:50:00* Test Item Value Reference Range Interpretation Comments GLUBED (test code = GLUBED) 271 mg/dL 74-106 H Performed by certified counting machine operator at [facility] [id number] 20:21:00* Test Item Value Reference Range Interpretation Comments GLUBED (test code = GLUBED) 143 mg/dL 74-106 H Performed by certified counting machine operator at [facility] FINGER/TOES AMP.,[id number]-[id number] 15:11:00 RUN DATE: 02/26/19 [facility] PAGE 1 RUN TIME: 1511 Specimen Inqui ry RUN USER: INTERFACE PATIENT: TORRES MAI ACCT #: [id number] [facility] U #: [id number] AGE/SX: 58/M ROOM: [facility] RE02/19/19ODESSA DR: Slava Gustafson MD : 56 BED: A DIS: STATUS: ADM IN TLOC: SPEC #: [id number] RECD: 02/22/19 STATUS: VIANEY [place] #: [id number] ANNETTE: 02/21/[address]: Franklin Morse ENTERED: 02/22/19 SP TYPE: FINGER/TOE OTHR DR: Franklin Morse DPM Teddy Lim MD, David N MD Shebi b, Zaher MD Uyeda, Jes se Kitanishi MD Vasq uez Donado, Andres F MDORDERED: CHAY COPIES TO: Franklin Morse DPM [address] [place] [address] Teddy Lim MD [address] [facility] [address] [place] [address] Jaqueline Roberts MD [address] [place] [phone] Eric Salazar MD [address] [facility] [address] [place] [address] Jayson Veloz MD [address] [place] [address] Andrew Taylor MD [address] [facility] [address] [place] [address] PROCEDURES: CHAY ( 02/26/19-1353) TISSUES: TOE, NOS - 5th RIGHT CONTINUED ON NEXT PAGE RUN DATE: 02/26/19 [facility] PAGE 2 RUN TIME: 1511 Specimen Inquiry RUN USER: INTERFACE SPEC #: [id number] PATIENT: TORRES MAI #[id number] (Continued)- FINAL DIAGNOSIS Right lower extremity, fifth toe, amputa tion: GANGRENOUS NECROSIS OF SKIN AND SUBCUTANEOUS TISSUE WITH E PITHELIAL HYPERPLASIA AND AREA OF ULCERATION ASSOCIATED WITH FIBRINOPU RULENT EXUDATE MARKED ACUTE OSTEOMYELITIS NEGATIVE FOR MALIGNANCY RRB/sm A 94004, 40462 MACROSCOPIC The specimen is rec eived in [...] the margin is ink ed in black. Library Technical Assistant sections are submitted after decalcification as f romario: 1A- service support representative soft tissue margin and adjacent ulcer; 1B- represent ative portion of gangrenous lesion including underlying bone; 1C- representati ve bone and cartilage at margin; 1D- perpendicular section through distal tip including bone. GROSS PERFORMED AT [facility] [address] [place] [place] [address] (P) MICROSCOPIC All of the stains, including any controls perf ormed, stain appropriately. MICROSCOPIC PERFORMED AT [facility] [address] [place] [place] [address] ( P)[phone] CONTINUED ON NEXT PAGE RUN DATE: 02/26/19 [facility] PAGE 3 RUN TIME: 1510 Specimen Inqui ry RUN USER: INTERFACE SPEC #: [id number] PATIENT: TORRES MAI #[id number] (Continued) PERFORMING SIT E Diagnosis performed at: [facility] [address] [place], [place] [address] Signed SIGNATURE ON FILE Don Mcintosh MD 02/26/19 1511 END OF REPORT PLEURAL FLD CELL [id number] 13:41:00* Test Item Value Reference Range Interpretation [...] PATHOLOGIST SPECIMEN COMMENTS: RIGHT PLEURAL FLUIDPLEURAL FLD [id number] 13:41:00* Test Item Value Reference Range Interpretation Comments PLEURAL FLD PH (test code = PHPL) 7.0 SPECIMEN COMMENTS: RIGHT PLEURAL FLUIDPLEURAL FLD [id number] 13:41:00* Test Item Value Reference Range Interpretation Comments PLEURAL FLD GLUCOSE (test code = GLUPL) 137 MG/DL SPECIMEN COMMENTS: RIGHT PLEURAL FLUIDPLEURAL FLD TOTAL [id number] 13:41:00* Test Item Value Reference Range Interpretation Comments PLEURAL FLD TOTAL PROTEIN (test code = PROTPL) 1.8 gram/dL SPECIMEN COMMENTS: RIGHT PLEURAL FLUIDPLEURAL FLD [id number] 13:41:00* Test Item Value Reference Range Interpretation Comments PLEURAL FLD LDH (test code = LDHPL) 87 IUnit/L SPECIMEN COMMENTS: RIGHT PLEURAL FLUIDPLEURAL FLD [id number] 13:41:00 * Test Item Value Reference Range Interpretation Comments PLEURAL FLD CHOLESTEROL (test code = CHOLPL) < 50 MG/DL SPECIMEN COMMENTS: RIGHT PLEURAL FLUIDPLEURAL FLD [id number] 13:41:00* Test Item Value Reference Range Interpretation Comments PLEURAL FLD TRIGLYCERIDE (test code = TRIGPL) 10 MG/DL SPECIMEN COMMENTS: RIGHT PLEURAL FLUIDPLEURAL FLD CELL [id number] 10:57:00* Test Item Value Reference Range Interpretation [...] PATHOLOGIST SPECIMEN COMMENTS: RIGHT PLEURAL FLUIDPLEURAL FLD [id number] 10:57:00* Test Item Value Reference Range Interpretation Comments PLEURAL FLD PH (test code = PHPL) 7.0 SPECIMEN COMMENTS: RIGHT PLEURAL FLUIDPLEURAL FLD [id number] 10:57:00* Test Item Value Reference Range Interpretation Comments PLEURAL FLD GLUCOSE (test code = GLUPL) 137 MG/DL SPECIMEN COMMENTS: RIGHT PLEURAL FLUIDPLEURAL FLD TOTAL [id number] 10:57:00* Test Item Value Reference Range Interpretation Comments PLEURAL FLD TOTAL PROTEIN (test code = PROTPL) 1.8 gram/dL SPECIMEN COMMENTS: RIGHT PLEURAL FLUIDPLEURAL FLD [id number] 10:57:00* Test Item Value Reference Range Interpretation Comments PLEURAL FLD LDH (test code = LDHPL) 87 IUnit/L SPECIMEN COMMENTS: RIGHT PLEURAL FLUIDPLEURAL FLD [id number] 10:57:00 * Test Item Value Reference Range Interpretation Comments PLEURAL FLD CHOLESTEROL (test code = CHOLPL) < 50 MG/DL SPECIMEN COMMENTS: RIGHT PLEURAL FLUIDPLEURAL FLD [id number] 10:57:00* Test Item Value Reference Range Interpretation Comments PLEURAL FLD TRIGLYCERIDE (test code = TRIGPL) 10 MG/DL SPECIMEN COMMENTS: RIGHT PLEURAL FLUIDPLEURAL FLD CELL [id number] 10:40:00* Test Item Value Reference Range Interpretation [...] PATHOLOGIST SPECIMEN COMMENTS: RIGHT PLEURAL FLUIDPLEURAL FLD [id number] 10:40:00* Test Item Value Reference Range Interpretation Comments PLEURAL FLD PH (test code = PHPL) 7.0 SPECIMEN COMMENTS: RIGHT PLEURAL FLUIDPLEURAL FLD [id number] 10:40:00* Test Item Value Reference Range Interpretation Comments PLEURAL FLD GLUCOSE (test code = GLUPL) MG/DL SPECIMEN COMMENTS: RIGHT PLEURAL FLUIDPLEURAL FLD TOTAL [id number] 10:40:00* Test Item Value Reference Range Interpretation Comments PLEURAL FLD TOTAL PROTEIN (test code = PROTPL) gram/dL SPECIMEN COMMENTS: RIGHT PLEURAL FLUIDPLEURAL FLD [id number] 10:40:00* Test Item Value Reference Range Interpretation Comments PLEURAL FLD LDH (test code = LDHPL) IUnit/L SPECIMEN COMMENTS: RIGHT PLEURAL FLUIDPLEURAL FLD [id number] 10:40:00 * Test Item Value Reference Range Interpretation Comments PLEURAL FLD CHOLESTEROL (test code = CHOLPL) MG/DL SPECIMEN COMMENTS: RIGHT PLEURAL FLUIDPLEURAL FLD [id number] 10:40:00* Test Item Value Reference Range Interpretation Comments PLEURAL FLD TRIGLYCERIDE (test code = TRIGPL) MG/DL SPECIMEN COMMENTS: RIGHT PLEURAL FLUIDPLEURAL FLD CELL CT/[id number] 10:38:00* Test Item Value Reference Range Interpretation [...] PATHOLOGIST SPECIMEN COMMENTS: RIGHT PLEURAL FLUIDPLEURAL FLD [id number] 10:38:00* Test Item Value Reference Range Interpretation Comments PLEURAL FLD PH (test code = PHPL) SPECIMEN COMMENTS: RIGHT PLEURAL FLUIDPLEURAL FLD [id number] 10:38:00* Test Item Value Reference Range Interpretation Comments PLEURAL FLD GLUCOSE (test code = GLUPL) MG/DL SPECIMEN COMMENTS: RIGHT PLEURAL FLUIDPLEURAL FLD TOTAL [id number] 10:38:00* Test Item Value Reference Range Interpretation Comments PLEURAL FLD TOTAL PROTEIN (test code = PROTPL) gram/dL SPECIMEN COMMENTS: RIGHT PLEURAL FLUIDPLEURAL FLD [id number] 10:38:00* Test Item Value Reference Range Interpretation Comments PLEURAL FLD LDH (test code = LDHPL) IUnit/L SPECIMEN COMMENTS: RIGHT PLEURAL FLUIDPLEURAL FLD [id number] 10:38:00 * Test Item Value Reference Range Interpretation Comments PLEURAL FLD CHOLESTEROL (test code = CHOLPL) MG/DL SPECIMEN COMMENTS: RIGHT PLEURAL FLUIDPLEURAL FLD [id number] 10:38:00* Test Item Value Reference Range Interpretation Comments PLEURAL FLD TRIGLYCERIDE (test code = TRIGPL) MG/DL SPECIMEN COMMENTS: RIGHT PLEURAL FLUID- SP THORACENTESIS [id number] 10:34:00 Name: TORRES MAI [facility] : 1960 Age/S: 58 / M [address] Unit #: [id number] Loc: [place] [address] Phys: Slava Gustafson MD Acct: [id number] Dis Date: Status: ADM IN PHONE #: [phone] Exam Date: 02/26/2019 09 FAX #: [phone] Reason: / EXAMS: CPT CODE: [id number] SP THORACENTESIS W/IMAG 36938 Fluoro Time: DAP (Gy m2): Air Kerma (mGy): REASON FOR EXAM: Small bilateral pleural effusions Exam order date: 02/26/2019 9:13 AM PROCEDURE: Ultrasound guided right thoracentesis Attending MYvonne: Slava Gustafson MD CPT code: 95390, 77110 FINDINGS: Prior to the procedure, informed consent [...] CC: Slava Gustafson MD Technologist: JAQUELINE LING [facility] Trnscb Date/Time: 02/26/2019 (1034) t.[email or web address].VTL Orig Print D/T: S: 02/26/2019 (1037) PAGE 1 Signed Report - XR CHEST 1 [id number] 09:42:00 FAX: Slava Gustafson MD [phone] [place]: St: ADM Name: TORRES CAN [facility] : [birth year] Age/S: 58/M [address] [facility] Unit #: [id number] Loc: V.[address] [place] [address] Phys: Bala Jimenez MD Acct: [id number] Dis Date: Status: ADM IN PHONE #: [phone] Exam Date: 02/26/2019 0939 FAX #: [phone] Reason: S/P RIGHT THORACENTESIS EXAMS: CPT CODE: [id number] XR CHEST 1 V 97491 REASON FOR EXAM: S/P RIGHT THORACENTESIS EXAM [...] Mitch CRUZVTL Orig Print D/T: S: 02/26/2019 (6782) FABIOLA MUELLER 1 Signed Report GLUBED 2019-02-26 08:29:00* Test Item Value Reference Range Interpretation Comments GLUBED (test code = GLUBED) 134 mg/dL 74-106 H Performed by certified counting machine operator at [facility] [id number] 08:08:00* Test Item Value Reference Range Interpretation Comments GLUBED (test code = GLUBED) 89 mg/dL 74-106 N Performed by certified counting machine operator at [facility] BASIC METABOLIC [id number] 05:21:00* Test Item Value Reference Range Interpretation [...] CA) 7.5 mg/dL 8.5-10.1 L B-TYPE NATRIURETIC [id number] 05:01:00* Test Item Value Reference Range Interpretation Comments B-TYPE NATRIURETIC PEPTIDE (test code = BNP) 1045.34 pgram/mL 0-100 H CBC W/AUTO [id number] 04:56:00* Test Item Value Reference Range Interpretation [...] DIFF REQUIRED (test code = MDIFF) NO [id number] 20:33:00* Test Item Value Reference Range Interpretation Comments GLUBED (test code = GLUBED) 139 mg/dL 74-106 H Performed by certified counting machine operator at [facility] [id number] 20:33:00* Test Item Value Reference Range Interpretation Comments GLUBED (test code = GLUBED) 38 mg/dL 74-106 LL [facility] certified counting machine [facility] Protocol~ [id number] 20:33:00* Test Item Value Reference Range Interpretation Comments GLUBED (test code = GLUBED) 124 mg/dL 74-106 H Performed by certified counting machine operator at [facility] [id number] 08:48:00* Test Item Value Reference Range Interpretation Comments GLUBED (test code = GLUBED) 145 mg/dL 74-106 H Performed by certified counting machine operator at [facility] [id number] 08:48:00* Test Item Value Reference Range Interpretation Comments GLUBED (test code = GLUBED) 67 mg/dL 74-106 L Performed by certified counting machine operator at [facility] B-TYPE NATRIURETIC [id number] 05:26:00* Test Item Value Reference Range Interpretation Comments B-TYPE NATRIURETIC PEPTIDE (test code = BNP) 1217.33 pgram/mL 0-100 H CBC W/AUTO [id number] 05:04:00* Test Item Value Reference Range Interpretation [...] (test code = MDIFF) NO BASIC METABOLIC [id number] 04:57:00* Test Item Value Reference Range Interpretation [...] code = CA) 7.1 mg/dL 8.5-10.1 L [id number] 22:08:00* Test Item Value Reference Range Interpretation Comments GLUBED (test code = GLUBED) 132 mg/dL 74-106 H Performed by certified counting machine operator at [facility] [id number] 16:38:00* Test Item Value Reference Range Interpretation Comments GLUBED (test code = GLUBED) 154 mg/dL 74-106 H Performed by certified counting machine operator at [facility] [id number] 11:50:00* Test Item Value Reference Range Interpretation Comments GLUBED (test code = GLUBED) 118 mg/dL 74-106 H Performed by certified counting machine operator at [facility] - CT CHEST W/O [id number] 11:28:00 Name: TORRES MAI [facility] : 1960 Age/S: 58 / M [address] [facility] [id number] Loc: [place] [address] Phys: Ml Fan MSN Acct: [id number] Dis Date: Status: ADM IN PHONE #: [phone] Exam Date: 02/24/2019 1115 FAX #: [phone] Reason: hypoxia EXAMS: CPT CODE: [id number] CT CHEST W/O CONTRAST 06103 HISTORY: Hypoxia. Sepsis. COMPARISON: Chest x-ray from [...] 77 mg/dL 74-106 N Performed by certified counting machine operator at [facility] CBC W/AUTO [id number] 06:01:00* Test Item Value Reference Range Interpretation [...] (test code = MDIFF) NO B-TYPE NATRIURETIC [id number] 05:59:00* Test Item Value Reference Range Interpretation Comments B-TYPE NATRIURETIC PEPTIDE (test code = BNP) 1547.04 pgram/mL 0-100 H BASIC METABOLIC [id number] 05:52:00* Test Item Value Reference Range Interpretation [...] CA) 7.6 mg/dL 8.5-10.1 L BASIC METABOLIC [id number] 05:48:00* Test Item Value Reference Range Interpretation [...] CALCIUM (test code = CA) mg/dL 8.5-10.1 [id number] 20:52:00* Test Item Value Reference Range Interpretation Comments GLUBED (test code = GLUBED) 137 mg/dL 74-106 H Performed by certified counting machine operator at [facility] [id number] 16:54:00* Test Item Value Reference Range Interpretation Comments GLUBED (test code = GLUBED) 160 mg/dL 74-106 H Performed by certified counting machine operator at [facility] [id number] 16:54:00* Test Item Value Reference Range Interpretation Comments GLUBED (test code = GLUBED) 175 mg/dL 74-106 H Performed by certified counting machine operator at [facility] [id number] 16:54:00* Test Item Value Reference Range Interpretation Comments GLUBED (test code = GLUBED) 121 mg/dL 74-106 H Performed by certified counting machine operator at [facility] CBC W/MANUAL [id number] 06:07:00* Test Item Value Reference Range Interpretation [...] IMMAT) 0 % 0-0 N BASIC METABOLIC [id number] 05:43:00* Test Item Value Reference Range Interpretation [...] code = CA) 7.1 mg/dL 8.5-10.1 L [id number] 05:43:00* Test Item Value Reference Range Interpretation Comments PHOSPHORUS (test code = PHOS) 3.0 mg/dL 2.5-4.9 N BASIC METABOLIC [id number] 05:33:00* Test Item Value Reference Range Interpretation [...] CALCIUM (test code = CA) mg/dL 8.5-10.1 [id number] 05:33:00* Test Item Value Reference Range Interpretation Comments PHOSPHORUS (test code = PHOS) mg/dL 2.5-4.9 CBC W/MANUAL [id number] 05:10:00* Test Item Value Reference Range Interpretation [...] MORPHOLOGY (test code = PLTMORPH) CBC W/MANUAL [id number] 05:10:00* Test Item Value Reference Range Interpretation [...] MORPHOLOGY (test code = PLTMORPH) CBC W/MANUAL [id number] 05:10:00* Test Item Value Reference Range Interpretation [...] MORPHOLOGY (test code = PLTMORPH) CBC W/MANUAL [id number] 05:10:00* Test Item Value Reference Range Interpretation [...] MORPHOLOGY (test code = PLTMORPH) CBC W/MANUAL [id number] 05:10:00* Test Item Value Reference Range Interpretation [...] PLTEST) PLATELET MORPHOLOGY (test code = PLTMORPH) [id number] 21:13:00* Test Item Value Reference Range Interpretation Comments GLUBED (test code = GLUBED) 328 mg/dL 74-106 H [facility] certified counting [facility]~ [id number] 16:43:00* Test Item Value Reference Range Interpretation Comments GLUBED (test code = GLUBED) 397 mg/dL 74-106 H Performed by certified counting machine operator at [facility] UR PROTEIN [id number] 14:50:00* Test Item Value Reference Range Interpretation Comments UR PROTEIN RANDOM (test code = PROTU) 84.9 mg/dL 0.0-11.9 H Protein levels may be falsely elevated in patients withelevated level of aminoglycoside antibiotics in CSF and inhighly concentrated urine specimens. If false elevation issuspected, contact lab for alternated testing technique. UR PROTEIN 24HR (test code = XYWW68K) 1103.70 mg/24hr 40-150 H UR VOLUME 24HR (test code = VOL) 1300 mL/24hrs 9288-3797 1300 TOTAL [id number] 11:02:00* Test Item Value Reference Range Interpretation Comments GLUBED (test code = GLUBED) 437 mg/dL 74-106 H Performed by certified counting machine operator at [facility] [id number] 11:02:00* Test Item Value Reference Range Interpretation Comments GLUBED (test code = GLUBED) > 500 mg/dL 74-106 HH [facility] certified counting machine [facility]~ [id number] 08:36:00* Test Item Value Reference Range Interpretation Comments GLUBED (test code = GLUBED) 425 mg/dL 74-106 H [facility] certified counting machine [facility]~ B-TYPE NATRIURETIC [id number] 07:40:00* Test Item Value Reference Range Interpretation Comments B-TYPE NATRIURETIC PEPTIDE (test code = BNP) 1528.05 pgram/mL 0-100 H Has Patient received Natrecor? NOUR PROTEIN [id number] 07:30:00* Test Item Value Reference Range Interpretation Comments UR PROTEIN RANDOM (test code = PROTU) 84.9 mg/dL 0.0-11.9 H Protein levels may be falsely elevated in patients withelevated level of aminoglycoside antibiotics in CSF and inhighly concentrated urine specimens. If false elevation issuspected, contact lab for alternated testing technique. UR PROTEIN 24HR (test code = CHLB88E) mg/24hr 40-150 UR VOLUME 24HR (test code = VOL) mL/24hrs 2146-4416 1300 TOTAL VOLUMECBC W/MANUAL [id number] 07:20:00* Test Item Value Reference Range Interpretation [...] code = IMMAT) 0 % 0-0 N [id number] 07:02:00* Test Item Value Reference Range Interpretation Comments TROPONIN-I (test code = TROPI) 0.821 ng/mL 0-0.045 HH CBC W/MANUAL [id number] 07:01:00* Test Item Value Reference Range Interpretation [...] MORPHOLOGY (test code = PLTMORPH) CBC W/MANUAL [id number] 07:01:00* Test Item Value Reference Range Interpretation [...] MORPHOLOGY (test code = PLTMORPH) CBC W/MANUAL [id number] 07:01:00* Test Item Value Reference Range Interpretation [...] MORPHOLOGY (test code = PLTMORPH) CBC W/MANUAL [id number] 07:00:00* Test Item Value Reference Range Interpretation [...] MORPHOLOGY (test code = PLTMORPH) CBC W/MANUAL [id number] 07:00:00* Test Item Value Reference Range Interpretation [...] MORPHOLOGY (test code = PLTMORPH) BASIC METABOLIC [id number] 06:56:00* Test Item Value Reference Range Interpretation [...] code = CA) 7.4 mg/dL 8.5-10.1 L [id number] 06:56:00* Test Item Value Reference Range Interpretation Comments PHOSPHORUS (test code = PHOS) 3.4 mg/dL 2.5-4.9 N BASIC METABOLIC [id number] 06:45:00* Test Item Value Reference Range Interpretation [...] CALCIUM (test code = CA) mg/dL 8.5-10.1 [id number] 06:45:00* Test Item Value Reference Range Interpretation Comments PHOSPHORUS (test code = PHOS) mg/dL 2.5-4.9 UR CREATININE CLEARANCE [id number] 04:15:00* Test Item Value Reference Range Interpretation Comments CREATININE CLEARANCE RESULT (test code = CREATCLR) 12 mL/min 100 -120 L CREATININE (test code = CREAT) 3.80 mg/dL 0.7-1.3 H UR CREATININE RANDOM (test code = CREATU) 51.0 mg/dL 30-125 N UR VOLUME 24HR (test code = VOL) 1300 mL/24hrs 1223-2411 UR PROTEIN/CREATININE [id number] 04:15:00* Test Item Value Reference Range Interpretation Comments UR PROTEIN RANDOM (test code = PROTU) 86.6 mg/dL 0.0-11.9 H Protein levels may be falsely elevated in patients withelevated level of aminoglycoside antibiotics in CSF and inhighly concentrated urine specimens. If false elevation issuspected, contact lab for alternated testing technique. PROTEIN/CREATININE RATIO (test code = P/CRATIO) 1.70 RATIO 0.0-0. 20 H LACTIC [id number] 02:38:00* Test Item Value Reference Range Interpretation Comments LACTIC ACID (test code = LACT) 1.2 mmol/L 0.4-1.9 N [id number] 02:37:00* Test Item Value Reference Range Interpretation Comments TROPONIN-I (test code = TROPI) 0.931 ng/mL 0-0.045 HH RESULT VERIFIED BY REPEAT ANALYSIS UR CREATININE CLEARANCE [id number] 01:34:00* Test Item Value Reference Range Interpretation Comments CREATININE CLEARANCE RESULT (test code = CREATCLR) mL/min 100 -120 CREATININE (test code = CREAT) 3.80 mg/dL 0.7-1.3 H UR CREATININE RANDOM (test code = CREATU) 51.0 mg/dL 30-125 N UR VOLUME 24HR (test code = VOL) mL/24hrs 0326-7935 UR PROTEIN/CREATININE [id number] 01:34:00* Test Item Value Reference Range Interpretation Comments UR PROTEIN RANDOM (test code = PROTU) 86.6 mg/dL 0.0-11.9 H Protein levels may be falsely elevated in patients withelevated level of aminoglycoside antibiotics in CSF and inhighly concentrated urine specimens. If false elevation issuspected, contact lab for alternated testing technique. PROTEIN/CREATININE RATIO (test code = P/CRATIO) 1.70 RATIO 0.0-0. 20 H ARTERIAL BLOOD [id number] 00:08:00* Test Item Value Reference Range Interpretation [...] 17.7 % vol 18.0-22.0 L CBC W/MANUAL [id number] 22:38:00* Test Item Value Reference Range Interpretation [...] code = IMMAT) 0 % 0-0 N [id number] 22:13:00* Test Item Value Reference Range Interpretation Comments TROPONIN-I (test code = TROPI) 0.860 ng/mL 0-0.045 HH Results called to [id number] by [employer] [facility] 02/21/19 2213Critical results verified and read back by Nurse? Y LACTIC [id number] 22:13:00* Test Item Value Reference Range Interpretation Comments LACTIC ACID (test code = LACT) 2.9 mmol/L 0.4-1.9 HH Results called to [id number] by V.[facility] 02/21/19 2213Critical results verified and read back by Nurse? Y BASIC METABOLIC [id number] 22:02:00* Test Item Value Reference Range Interpretation [...] code = CA) 7.5 mg/dL 8.5-10.1 L [id number] 22:02:00* Test Item Value Reference Range Interpretation Comments PHOSPHORUS (test code = PHOS) 2.8 mg/dL 2.5-4.9 N [id number] 22:02:00* Test Item Value Reference Range Interpretation Comments MAGNESIUM (test code = MAG) 1.9 mg/dL 1.8-2.4 N BASIC METABOLIC [id number] 21:59:00* Test Item Value Reference Range Interpretation [...] CALCIUM (test code = CA) mg/dL 8.5-10.1 [id number] 21:59:00* Test Item Value Reference Range Interpretation Comments PHOSPHORUS (test code = PHOS) mg/dL 2.5-4.9 [id number] 21:59:00* Test Item Value Reference Range Interpretation Comments MAGNESIUM (test code = MAG) mg/dL 1.8-2.4 CBC W/MANUAL [id number] 21:52:00* Test Item Value Reference Range Interpretation [...] MORPHOLOGY (test code = PLTMORPH) CBC W/MANUAL [id number] 21:48:00* Test Item Value Reference Range Interpretation [...] MORPHOLOGY (test code = PLTMORPH) CBC W/MANUAL [id number] 21:48:00* Test Item Value Reference Range Interpretation [...] MORPHOLOGY (test code = PLTMORPH) CBC W/MANUAL [id number] 21:48:00* Test Item Value Reference Range Interpretation [...] MORPHOLOGY (test code = PLTMORPH) CBC W/MANUAL [id number] 21:48:00* Test Item Value Reference Range Interpretation [...] PLTEST) PLATELET MORPHOLOGY (test code = PLTMORPH) [id number] 21:43:00* Test Item Value Reference Range Interpretation Comments GLUBED (test code = GLUBED) 335 mg/dL 74-106 H Performed by certified counting machine operator at [facility] - XR CHEST 1 [id number] 21:40:00 FAX: Kim Maier MD [phone] [place]: St: ADM Name: TORRES CAN [facility] : [birth year] Age/S: 58/M [address] [facility] Unit #: [id number] Loc: V.[address] [place] [address] Phys: Kim Hopkins MD Acct: [id number] Dis Date: Status: ADM IN PHONE #: [phone] Exam Date: 02/21/20192135 FAX #: [phone] Reason: LOW O2 SATURATION EXAMS: CPT CODE: [id number] XR CHEST 1 V 55201 REASON FOR EXAM: LOW O2 SA TURATION [...] signed by: Bala Jimenez M.D. CC: Kim Hpokins MD Technolog ist: RT DARNELL(R) Trnscrd Date/Time/By : 02/21/2019 (2139) : By: Bernie Orig Print D/T: S: 02/21/2019 (214 3) PAGE 1 Signed Report [id number] 19:43:00* Test Item Value Reference Range Interpretation Comments GLUBED (test code = GLUBED) 296 mg/dL 74-106 H Performed by certified counting machine operator at [facility] [id number] 18:36:00* Test Item Value Reference Range Interpretation Comments GLUBED (test code = GLUBED) 307 mg/dL 74-106 H Performed by certified counting machine operator at [facility] [id number] 16:25:00* Test Item Value Reference Range Interpretation Comments GLUBED (test code = GLUBED) 214 mg/dL 74-106 H Performed by certified counting machine operator at [facility] - MRI LOW EXT W/O CONT [id number] 14:39:00 FAX: Ml Fan MSN [place]: St: ADM FAX: Kim Maier MD [phone] Name: TORRES MAI [facility] : 1960 Age/S: 58/M [address] [facility] Unit #: [id number] Loc: [address] [place] [address] Phys: Ml Fan MSN Acct: [id number] Dis Date: Status: ADM IN PHONE #: [phone] Exam Date: 02/21/2019 1153 FAX #: [phone] Reason: OM EXAMS: CPT CODE: [id number] MRI L[place] EXT W/[place] [address] HISTORY: Soft tissue infection, gangrene TECHNIQUE: Sagittal [...] echnologist: Alexandro Blank(R)(MR) Trnscrd Date /Time/By: 02/21/2019 (5820) : By: [email or web address] Orig Print D/T: S: 019 (5648) PAGE 1 Signed Report [id number] 13:52:00* Test Item Value Reference Range Interpretation Comments GLUBED (test code = GLUBED) 321 mg/dL 74-106 H Performed by certified counting machine operator at [facility] [id number] 13:22:00* Test Item Value Reference Range Interpretation Comments PHOSPHORUS (test code = PHOS) 2.5 mg/dL 2.5-4.9 N [id number] 08:23:00* Test Item Value Reference Range Interpretation Comments GLUBED (test code = GLUBED) 362 mg/dL 74-106 H Performed by certified counting machine operator at [facility] B-TYPE NATRIURETIC [id number] 06:31:00* Test Item Value Reference Range Interpretation Comments B-TYPE NATRIURETIC PEPTIDE (test code = BNP) 1246.33 pgram/mL 0-100 H COMPREHENSIVE METABOLIC [id number] 06:16:00* Test Item Value Reference Range Interpretation [...] reference range due to change in reagent. [id number] 06:16:00* Test Item Value Reference Range Interpretation Comments PHOSPHORUS (test code = PHOS) 2.8 mg/dL 2.5-4.9 N [id number] 06:16:00* Test Item Value Reference Range Interpretation Comments MAGNESIUM (test code = MAG) 2.0 mg/dL 1.8-2.4 N COMPREHENSIVE METABOLIC [id number] 06:06:00* Test Item Value Reference Range Interpretation [...] TOTAL (test code = ALKP) IUnit/L 45-117 [id number] 06:06:00* Test Item Value Reference Range Interpretation Comments PHOSPHORUS (test code = PHOS) mg/dL 2.5-4.9 [id number] 06:06:00* Test Item Value Reference Range Interpretation Comments MAGNESIUM (test code = MAG) mg/dL 1.8-2.4 CBC W/AUTO [id number] 05:42:00* Test Item Value Reference Range Interpretation [...] code = NRBC#) 0.00 K/mm3 0.0-0.1 N [id number] 21:32:00* Test Item Value Reference Range Interpretation Comments GLUBED (test code = GLUBED) 258 mg/dL 74-106 H Performed by certified counting machine operator at [facility] [id number] 16:34:00* Test Item Value Reference Range Interpretation Comments GLUBED (test code = GLUBED) 210 mg/dL 74-106 H Performed by certified counting machine operator at [facility] URIC [id number] 12:53:00* Test Item Value Reference Range Interpretation Comments URIC ACID (test code = URIC) 10.9 mg/dL 2.6-7.2 H PARATHYROID HORMONE [id number] 12:53:00* Test Item Value Reference Range Interpretation Comments PARATHYROID HORMONE INTACT (test code = PARAI) 95.20 pgram/mL 8.4-8 8 H URIC [id number] 12:34:00* Test Item Value Reference Range Interpretation Comments URIC ACID (test code = URIC) 10.9 mg/dL 2.6-7.2 H PARATHYROID HORMONE [id number] 12:34:00* Test Item Value Reference Range Interpretation Comments PARATHYROID HORMONE INTACT (test code = PARAI) pgram/mL 8.4-88 [id number] 12:15:00* Test Item Value Reference Range Interpretation Comments GLUBED (test code = GLUBED) 327 mg/dL 74-106 H Performed by certified counting machine operator at [facility] - XR CHEST 1 [id number] 11:32:00 FAX: Kim Maier MD [phone] [place]: B St: ADM FAX: Dago Houston MD [phone] Name: TORRES MAI [facility] : 1960 Age/S: 58/M [address] [facility] Unit #: [id number] Loc: [place] [address] Phys: Dago Gregory MD Acct: [id number] Dis Date: Status: ADM IN PHONE #: [phone] Exam Date: 02/20/2019 1051 FAX #: [phone] Reason: CHF EXAMS: CPT CODE: [id number] XR CHEST 1 V 83486 REASON FOR EXAM: CHF Exam Order Date: [...] RT(R); Danielle Buenrostro RT(R) Trnscrd Date/Time/By: 2018 (1131) : By: [email or web address] Orig Print D/T: S: 02/20/2019 (8842) PAGE 1 Signed Report [id number] 11:03:00* Test Item Value Reference Range Interpretation Comments GLUBED (test code = GLUBED) 250 mg/dL 74-106 H Performed by certified counting machine operator at [facility] - US RETRO [id number] 10:43:00 Name: TORRES MAI [facility] : 1960 Age/S: 58 / M [address] [facility] Unit #: [id number] Loc: [place] [address] Phys: Dago Gregory MD Acct: [id number] Dis Date: Status: ADM IN PHONE #: [phone] Exam Date: 02/20/2019 1042 FAX #: [phone] Reason: KEKE EXAMS: CPT CODE: [id number] US RETRO LTD [address]13 REASON FOR EXAM: KEKE EXAM ORDER DATE: [...] 1 Signed Report (CONTINUED) Name: TORRES MAI [facility] : 1960 Age/S: 58 / M [address] [facility] Unit #: [id number] Loc: [facility] [place] [address] Phys: Dago Gregory MD Acct: [id number] Dis Date: Status: ADM IN PHONE #: [phone] Exam Date: 02/20/2019 1042 FAX #: [phone] Reason: KEKE EXAMS: CPT CODE: [id number] [facility] [address] < Continued> CC: Kim Hopkins MD; Dago Gregory MD Technologist: TASH HOWARD RT(R),RDOK Trnwvb Date/Time: 02/20/2019 (1043) [email or web address] Orig Print D/T: S: 02/20/2019 (1046) Probe: PAGE 2 Signed Report URINALYSIS [id number] 07:02:00* Test Item Value Reference Range Interpretation [...] 3-5 #/LPF 0-5 Urine Source? Clean [facility] NA,[id number] 07:02:00* Test Item Value Reference Range Interpretation Comments UR NA,RANDOM (test code = ELADIA) 13 mmol/L 20-110 L Urine Source? [facility] CHLORIDE [id number] 07:02:00* Test Item Value Reference Range Interpretation Comments UR CHLORIDE RANDOM (test code = CLU) < 10 mEq/L Urine Source? [facility] OSMOLALITY [id number] 07:02:00* Test Item Value Reference Range Interpretation Comments UR OSMOLALITY RANDOM (test code = OSMOU) 357 mOsm/kg 48-962 N Urine Source? Clean CatchURINALYSIS [id number] 05:53:00* Test Item Value Reference Range Interpretation [...] 3-5 #/LPF 0-5 Urine Source? [employer] [facility] NA,[id number] 05:53:00* Test Item Value Reference Range Interpretation Comments UR NA,RANDOM (test code = ELADIA) 13 mmol/L 20-110 L Urine Source? [employer] [facility] CHLORIDE [id number] 05:53:00* Test Item Value Reference Range Interpretation Comments UR CHLORIDE RANDOM (test code = CLU) < 10 mEq/L Urine Source? [employer] [facility] OSMOLALITY [id number] 05:53:00* Test Item Value Reference Range Interpretation Comments UR OSMOLALITY RANDOM (test code = OSMOU) mOsm/kg 48-962 Urine Source? Clean CatchURINALYSIS [id number] 05:44:00* Test Item Value Reference Range Interpretation [...] 3-5 #/LPF 0-5 Urine Source? [employer] [facility] NA,[id number] 05:44:00* Test Item Value Reference Range Interpretation Comments UR NA,RANDOM (test code = ELADIA) mmol/L 20-110 Urine Source? [employer] CHLORIDE [id number] 05:44:00* Test Item Value Reference Range Interpretation Comments UR CHLORIDE RANDOM (test code = CLU) mEq/L Urine Source? [employer] [facility] OSMOLALITY [id number] 05:44:00* Test Item Value Reference Range Interpretation Comments UR OSMOLALITY RANDOM (test code = OSMOU) mOsm/kg 48-962 Urine Source? Clean CatchBASIC METABOLIC [id number] 03:27:00* Test Item Value Reference Range Interpretation [...] result is a direct measurement.========= CBC W/MANUAL [id number] 03:19:00* Test Item Value Reference Range Interpretation [...] IMMAT) 0 % 0-0 N CBC W/MANUAL [id number] 02:27:00* Test Item Value Reference Range Interpretation [...] MORPHOLOGY (test code = PLTMORPH) CBC W/MANUAL [id number] 02:27:00* Test Item Value Reference Range Interpretation [...] MORPHOLOGY (test code = PLTMORPH) CBC W/MANUAL [id number] 02:27:00* Test Item Value Reference Range Interpretation [...] MORPHOLOGY (test code = PLTMORPH) CBC W/MANUAL [id number] 02:27:00* Test Item Value Reference Range Interpretation [...] MORPHOLOGY (test code = PLTMORPH) CBC W/MANUAL [id number] 02:27:00* Test Item Value Reference Range Interpretation [...] PLTEST) PLATELET MORPHOLOGY (test code = PLTMORPH) [id number] 22:25:00* Test Item Value Reference Range Interpretation Comments GLUBED (test code = GLUBED) 359 mg/dL 74-106 H Performed by certified counting machine operator at [facility] URIC [id number] 21:05:00* Test Item Value Reference Range Interpretation Comments URIC ACID (test code = URIC) 11.3 mg/dL 2.6-7.2 H OSMOLALITY [id number] 21:05:00* Test Item Value Reference Range Interpretation Comments OSMOLALITY SERUM (test code = OSMO) 304.5 mOsm/kg 275-295 H URIC [id number] 20:55:00* Test Item Value Reference Range Interpretation Comments URIC ACID (test code = URIC) 11.3 mg/dL 2.6-7.2 H OSMOLALITY [id number] 20:55:00* Test Item Value Reference Range Interpretation Comments OSMOLALITY SERUM (test code = OSMO) mOsm/kg 275-295 SED [id number] 20:36:00* Test Item Value Reference Range Interpretation Comments SED RATE (test code = SEDW) 115 mm/hr 0-15 H WINTROBE METHOD: NORMAL RANGE FOR MEN: 0-9 MM/HR WOMAN: 0-20 MM/HR SED RATE [id number] 20:35:00* Test Item Value Reference Range Interpretation Comments SED RATE WESTERGREN (test code = SEDW) 115 mm/hr 0-15 H [id number] 19:19:00* Test Item Value Reference Range Interpretation Comments GLYCOSYLATED HEMOGLOBIN (HA1C) (test code = GLYHGB) 8.9 % HbA1 4. 8-6.0 H ESTIMATED AVERAGE GLUCOSE (test code = EAG) 209 MG/DL LACTIC [id number] 17:29:00* Test Item Value Reference Range Interpretation Comments LACTIC ACID (test code = LACT) 1.7 mmol/L 0.4-1.9 N CBC W/O [id number] 16:27:00* Test Item Value Reference Range Interpretation [...] = MPV) 11.0 fL 6.7-11.0 N PROTHROMBIN [id number] 16:10:00* Test Item Value Reference Range Interpretation [...] (2.5-3.5) IS PATIENT ON ANTICOAGULANTS? NTHROMBOPLASTIN TIME [id number] 16:10:00* Test Item Value Reference Range Interpretation Comments THROMBOPLASTIN TIME PARTIAL (test code = PTT) 37.5 seconds 25.0-36. 5 H IS PATIENT ON ANTICOAGULANTS? NBASIC METABOLIC [id number] 16:10:00* Test Item Value Reference Range Interpretation [...] CA) 9.5 mg/dL 8.5-10.1 N BASIC METABOLIC [id number] 15:59:00* Test Item Value Reference Range Interpretation [...] 8.5-10.1 - XR FOOT 3 + V [id number] 15:15:00 FAX: Myrna Lopez [phone] [place]: St: REG Name: TORRES CAN [facility] : [birth year] Age/S: 58/M [address] [facility] Unit #: [id number] Loc: [place] [address] Phys: Myrna Vickers MD Acct: [id number] Dis Date: Status: REG ER PHONE #: [phone] Exam Date: 02/19/2019 1510 FAX #: [phone] Reason: GANGRENE OF SMALL TOE EXAMS: CPT CODE: [id number] XR FOOT 3 + V RT [address]66 REASON FOR EXAM: GANGRENE OF SMALL TOE [...] head of the right fourth metatarsal at 2335 Reported and signed by: Bala Jimenez M.D. CC: Myrna Vickers MD Technologist: TRICIA CORREA Trnscrd Date/Time/By: 02/19/2019 (7366) : By: [email or web address] Orig Print D/T: S: 02/19/2019 (2480) PAGE 1 Signed Report
[2020-04-25] MEDS: INSULIN REGULAR, HUMAN 100 UNIT/1 ML 3ML VIAL SQ SCH ×4 (10:26→21:49)
[2020-04-25] MEDS: CEFTRIAXONE SOD 1 GM/NS 50 ML 50 ML IV SCH (10:39)
--- NOTE | 2020-04-25 11:28 | Diagnostic Imaging Report ---
TECHNIQUE: Magnetic resonance imaging of the LEFT foot was performed WITHOUT injected contrast. HISTORY: Pain and great toe ulcer concerning for osteomyelitis. COMPARISON: Plain radiograph on 04/24/2020. DISCUSSION: Bone: There is edema at the tuft of the great toe distal phalanx and mild cortical erosive changes. 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 No abnormal changes in the amputated metatarsals. No acute fracture or osteonecrosis. Joints: No evidence of dislocation. There are mild degenerative changes of the midfoot. Soft Tissues: There is diffuse great toe soft tissue edema and an ulcer at the dorsal aspect of the first distal phalanx. IMPRESSION: Skin ulcer in the dorsal aspect of the great toe with underlying osseous changes compatible with early osteomyelitis of the great toe distal phalanx. Signed by: Chelsea Kathleen MD on 04/25/2020 11:24 AM
--- NOTE | 2020-04-25 16:53 | Consultation ---
DATE OF CONSULTATION: 04/25/2020 REASON FOR CONSULTATION: Gangrenous changes noted to the left great toe with patient being diabetic on end-stage renal disease. HISTORY OF PRESENT ILLNESS: This is a pleasant 59-year-old male who was seen at bedside, accompanied by , who relates that 2-3 weeks ago his toe started turning somewhat discolored may have hit it. He is currently denying any history of fever, chills, nausea, or vomiting. PAST MEDICAL HISTORY: Remarkable for end-stage renal disease x1 year, insulin-dependent diabetes x20+ years, hypertension, and hypercholesteremia. ALLERGIES: THE PATIENT DENIES. CURRENT MEDICATIONS: Note listed in chart including IV ceftriaxone. PAST SURGICAL HISTORY: Remarkable for right BKA approximately several years ago, amputation of digits two through five, left foot at least 7-8 years ago. SOCIAL HISTORY: Denies any smoking, drinking, or recreational drug use. Has one kid. FAMILY HISTORY: Remarkable for diabetes. REVIEW OF SYSTEMS: CARDIAC: He is denying any palpitations or arrhythmias. RESPIRATORY: Denies any shortness of breath or productive cough. GASTROINTESTINAL: Denies any diarrhea or constipation. LABORATORY DATA: Noted as a white blood cell count of 7.2, hemoglobin 10.3 with a platelet count of 190. Blood glucose of 164.. PODIATRIC PHYSICAL EXAMINATION REVEALS: VITAL SIGNS: Afebrile, pulse rate 68, respirations 16, blood pressure 130/61, and O2 saturation 99%. ASCULATURE: Pedal pulses, the DP and PT are barely to nonpalpable to the left lower extremity. Skin temperature warm and cool to touch. NEUROLOGIC: Decreased and protective sensation. MUSCULOSKELETAL: Muscle mass to be somewhat wasted to the left lower extremity. Muscle strength to be 3 to 4/5 to all muscle groups. DERMATOLOGICAL: Reveals a grade 3/4 ulceration, distal aspect left great toe. Gangrenous changes noted to the distal aspect. No drainage. IMAGING DATA: X-rays suspicious for osteomyelitis. ASSESSMENT: Osteomyelitis, grade 4 ulcer, pre gangrene with severe peripheral arterial disease. PLAN: Dr. Andrew Carrasco will be consulted for vascular evaluation. We will start Bactroban ointment followed by diluted wet-to-dry Betadine. Continue to treat conservatively for now. The patient and patient's understand some type of amputation may need to be done. We will await Dr. Carrasco's evaluation before determining level. ARCADIO Moon/MANUEL /[id number]
--- NOTE | 2020-04-25 19:37 | Consultation ---
DATE OF CONSULTATION: 04/25/2020 REQUESTING PHYSICIAN: Dr. Lucero. REASON FOR CONSULTATION: ESRD. HISTORY OF PRESENT ILLNESS: This is a 59-year-old male with history of right leg amputation, came with left toe gangrene. He is missing other digits of his foot. He is not sure if he has had any vascular workup in the past, I suspect he has. Currently, denies any nausea or vomiting. Denies any trouble breathing. PAST MEDICAL HISTORY: Significant for ESRD, diabetes, hypertension, secondary hyperparathyroidism, peripheral vascular disease, status post right leg amputation. SOCIAL HISTORY: Does not abuse alcohol or smoke. Lives with family. REVIEW OF SYSTEMS: CONSTITUTIONAL: No fever or chills. SKIN: Discoloration in the left foot, large 1st digit. NEURO: Denies headaches, seizures. CARDIAC: No angina, syncope. Rest of review is negative. PHYSICAL EXAMINATION: GENERAL: Lying in bed, no distress. Temperature is 97.8, blood pressure 136/63, pulse 63. HEENT: Atraumatic. NECK: Unable to see JVD. CHEST: Clear. Bilateral breath sounds equal. CARDIAC: Normal heart tones. Rhythm sounds regular. EXTREMITIES: Some coolness in the legs. Some discoloration of the 1st digit of the left leg. Right AKA is noted. Left upper extremity AV fistula is patent. ABDOMEN: Benign. LABORATORY DATA: Hemoglobin 10.3, potassium 3.2, creatinine 5.0, BUN 39. ASSESSMENT: 1. End-stage renal disease underlying diabetic and hypertensive end-organ damage, left upper extremity AV fistula. 2. Peripheral vascular disease. 3. Anemia of chronic kidney disease. PLAN: Hemodialysis today. Please see my orders for details. We will follow along. MD ZULMA ShanksK/MODL /[id number]
[2020-04-25] MEDS: INSULIN GLARGINE 100 UNITS/ML VIAL SQ SCH (21:49)
[2020-04-25] MEDS: SIMVASTATIN 20 MG TAB PO SCH (21:49)
[2020-04-26] VITALS (8 sets, daily range): BP systolic 121–133; BP diastolic 56–77
[2020-04-26] MEDS ORDERED: MORPHINE SULFATE 2 MG/ML SYR 1ML IV PRN (00:30)
[2020-04-26] MEDS: FAMOTIDINE 20 MG TAB PO SCH ×2 (06:17→09:54)
[2020-04-26 07:00] LABS: BASOPHILS % 0.5 % (0.0-1.0); EOSINOPHILS # (AUTO) 0.7 (0.0-0.4); EOSINOPHILS % 7.8 % (0.0-6.0); HEMATOCRIT 33.6 % (38.2-49.6); HEMOGLOBIN 11.3 g/dL (14.0-18.0); LYMPHOCYTES # (AUTO) 1.7 (1.0-3.2); LYMPHOCYTES % 20.5 % (18.0-39.1); MEAN CORPUSCULAR HEMOGLOBIN 30.3 pg (28-32); MEAN CORPUSCULAR HGB CONC 33.6 g/dL (31-35); MEAN CORPUSCULAR VOLUME 90.1 fL (81-99); MONOCYTES # (AUTO) 0.5 (0.2-0.8); MONOCYTES % 6.4 % (4.4-11.3); NEUTROPHILS # (AUTO) 5.4 (2.1-6.9); NEUTROPHILS % 64.2 % (38.7-80.0); PLATELET COUNT 203 x10e3/uL (140-360); RED BLOOD COUNT 3.73 x10e6/uL (4.3-5.7); RED CELL DISTRIBUTION WIDTH 13.2 % (11.7-14.4)
--- NOTE | 2020-04-26 07:45 | NUR ---
RECEIVED PT RESTING IN BED. RESPIRATIONS EVEN AND BREATHING UNLABORED. NO C/O PAIN VERBALIZED. CALL LIGHT WITHIN REACH. WILL CONTINUE TO MONITOR.
[2020-04-26 08:02] LABS: ALBUMIN 3.1 g/dL (3.5-5.0); ALBUMIN/GLOBULIN RATIO 0.8 (0.8-2.0); ANION GAP 17.4 mmol/L (8-16); CALCIUM 8.2 mg/dL (8.4-10.2); CREATININE, SERUM 4.42 mg/dL (0.72-1.25); POTASSIUM 3.4 mmol/L (3.5-5.1)
[2020-04-26] MEDS: CARVEDILOL 12.5 MG TAB PO SCH ×2 (08:56→16:04)
[2020-04-26] MEDS: HYDRALAZINE HCL 25 MG TAB PO SCH ×3 (08:56→20:25)
[2020-04-26] MEDS: AMLODIPINE BESYLATE 10 MG TAB PO SCH (08:57)
[2020-04-26] MEDS: INSULIN REGULAR, HUMAN 100 UNIT/1 ML 3ML VIAL SQ SCH ×4 (09:30→20:24)
[2020-04-26] MEDS: INSULIN GLARGINE 100 UNITS/ML VIAL SQ SCH ×2 (09:31→21:00)
[2020-04-26] MEDS: GABAPENTIN 300 MG CAP PO SCH ×3 (09:54→20:24)
[2020-04-26] MEDS: CEFTRIAXONE SOD 1 GM/NS 50 ML 50 ML IV SCH (10:04)
--- NOTE | 2020-04-26 12:55 | Consultation ---
DATE OF CONSULTATION: Cardiology Consultation REQUESTING PHYSICIAN: Dr. Perez. REASON FOR CONSULTATION: PAD. HISTORY OF PRESENT ILLNESS: Mr. Burnette is a 59-year-old male with a pertinent past medical history of end-stage renal disease, on hemodialysis, peripheral arterial disease, status post right BKA last year and also multiple amputated toes to his left foot and hypertension, who reports that he came into the hospital after his reported to him that his toe is turning black. He is unable to see and he is legally blind and for that reason he came to see care. He currently denies any chest pain, shortness of breath, palpitation, nausea, vomiting, chills, fever, or bilateral lower extremity pain. PAST MEDICAL HISTORY: As dictated above Significant for end-stage renal disease, diabetes, hypertension, and peripheral vascular disease. PAST SURGICAL HISTORY: Right BKA and multiple toe amputations to his left foot. SOCIAL HISTORY: He denies smoking or drinking. Lives with family. REVIEW OF SYSTEMS: Negative except as mentioned above. PHYSICAL EXAMINATION: VITAL SIGNS: Temperature 99.6, pulse 64, respiratory rate 17, blood pressure 127/77, and oxygen saturation 100% on room air. GENERAL: Alert and oriented x3, resting in bed, does not appear to be in any acute distress. NECK: Supple. No JVD noted. CARDIOVASCULAR: Regular rate and rhythm. Normal S1, S2. Diastolic murmur noted. LUNGS: Clear to auscultation throughout. No wheezing. No rhonchi or crackles. ABDOMEN: Soft, nontender. Normoactive bowel sounds. EXTREMITIES: Lower extremity, right lower extremity [id number] amputation. Left lower extremity with a wound that is covered with dressing and missing multiple digits. NEUROLOGIC: Alert and oriented x3. Normal affect. Reports to be blind. CARDIOVASCULAR MEDICATIONS: Amlodipine 10 mg p.o. daily, Coreg 25 mg p.o. b.i.d., and simvastatin 20 mg p.o. at bedtime. LABORATORY DATA: WBC 8.47, hemoglobin 11.3, hematocrit 33.6, and platelets 203. Sodium 136, potassium 3.4, BUN 20, creatinine 4.42, GFR 14, glucose 143, AST 13, and ALT 11. Wound culture of the left foot with Staphylococcus and mirabilis noted. IMAGING DATA: Left foot x-ray with status post transmetatarsal amputation of the 2nd to 5th metatarsals. There are no osseous lucencies or erosive changes to suggest osteomyelitis. The left foot MRI with skin ulcer in the dorsal aspect of the great toe with underlying osseous changes compatible with early osteomyelitis of the great toe. IMPRESSION: 1. Osteomyelitis to the left foot. 2. Peripheral arterial disease. 3. End-stage renal disease. 4. Hypertension. RECOMMENDATION: The patient will require Vascular evaluation with peripheral angiogram planned before determining if amputation needed. Continue oral medical therapy and management of above. Aspirin will be added to the above-listed cardiac medications. Continue to monitor this patient. Continue wound care. Continue podiatry care per Dr. Barnes. Nephrology has been consulted and managing end-stage renal disease. Thank you for this consultation. Dictated by Adina Yanes NP MD ALEIDA WinnV/MANUEL /[id number]
--- NOTE | 2020-04-26 14:11 | Consultation ---
DATE OF CONSULTATION: 04/26/2020 SUBJECTIVE: The patient is seen at bedside. Decreased discomfort to the left lower extremity. Denies any history of fever, chills, nausea, or vomiting. OBJECTIVE: VITAL SIGNS: Afebrile, pulse rate 65, respirations 17, blood pressure 130/64, and O2 saturation 99%. EXTREMITIES: Pedal pulses diminished. Skin temperature cool to touch. Cyanosis noted to the distally. Negative foul smell. LABORATORY DATA: Labs show white blood cell count of 8.4, hemoglobin 11.3 with a platelet count of 203. ASSESSMENT: Gangrene of left great toe, peripheral arterial disease, cellulitis. PLAN: We will continue to await vascular intervention before any surgical intervention is attempted to see if he is bypassable. We will continue to treat conservatively with IV antibiotics and local wound care for now. ARCADIO Moon/MANUEL /[id number]
--- NOTE | 2020-04-26 16:21 | NUR ---
WOUND CARE TO LEFT GREAT TOE COMPLETED. PT TOLERATED DRESSING CHANGE WELL. DRESSING IS CLEAN, DRY, AND INTACT.
--- NOTE | 2020-04-26 19:00 | NUR ---
Bedside rounds completed with morning nurse. Pt alert and oriented, lying in bed, HOB 45 degrees, denies pain at this time. Call light within reach. Bed low and locked. Bed alarm on.
--- NOTE | 2020-04-26 19:13 | NUR ---
PT RESTING IN BED. RESPIRATIONS EVEN AND BREATHING UNLABORED. PT IN STABLE CONDITION. BEDSIDE SHIFT REPORT GIVEN TO ONCOMING NURSE.
[2020-04-26] MEDS: SIMVASTATIN 20 MG TAB PO SCH (20:24)
[2020-04-27] VITALS (7 sets, daily range): BP systolic 110–128; BP diastolic 51–65
[2020-04-27 06:04] LABS: BASOPHILS % 0.4 % (0.0-1.0); EOSINOPHILS % 0.3 % (0.0-6.0); HEMATOCRIT 31.2 % (38.2-49.6); HEMOGLOBIN 10.6 g/dL (14.0-18.0); LYMPHOCYTES # (AUTO) 1.8 (1.0-3.2); LYMPHOCYTES % 24.5 % (18.0-39.1); MEAN CORPUSCULAR HEMOGLOBIN 31.3 pg (28-32); MONOCYTES # (AUTO) 0.5 (0.2-0.8); MONOCYTES % 7.3 % (4.4-11.3); NEUTROPHILS # (AUTO) 4.8 (2.1-6.9); NEUTROPHILS % 66.9 % (38.7-80.0); PLATELET COUNT 195 x10e3/uL (140-360); RED BLOOD COUNT 3.39 x10e6/uL (4.3-5.7); RED CELL DISTRIBUTION WIDTH 13.1 % (11.7-14.4)
[2020-04-27 06:45] LABS: CREATININE, SERUM 5.79 mg/dL (0.72-1.25)
[2020-04-27] MEDS: INSULIN REGULAR, HUMAN 100 UNIT/1 ML 3ML VIAL SQ SCH ×4 (07:30→20:11)
[2020-04-27] MEDS: INSULIN GLARGINE 100 UNITS/ML VIAL SQ SCH ×2 (09:00→20:12)
--- NOTE | 2020-04-27 09:34 | Progress Note ---
DATE: 04/27/2020 Progress Report. SUBJECTIVE: The patient is at bedside. No distress, decreased discomfort to the left lower extremity. OBJECTIVE: VITAL SIGNS: Afebrile, pulse rates 58, respirations 18, blood pressure 117/65, O2 saturation 99%. VASCULAR: Pedal pulses diminished to the left lower extremity. Gangrenous changes noted to the distal aspect of the left great toe. Pedal pulses barely palpable. SKIN: Temperature warm and cool to touch. ASSESSMENT: Peripheral arterial disease, gangrene, and cellulitis with a grade 4 ulcer down to bone with possible osteomyelitis. PLAN: We will continue local wound care. Continue IV antibiotics. Awaiting Vascular intervention to assess for an amputation. Level to be determined following the angioplasty. ARCADIO Moon/MAUNEL /[id number]
[2020-04-27] MEDS: HYDRALAZINE HCL 25 MG TAB PO SCH ×3 (09:37→20:12)
[2020-04-27] MEDS: AMLODIPINE BESYLATE 10 MG TAB PO SCH (09:38)
[2020-04-27] MEDS: FAMOTIDINE 20 MG TAB PO SCH (09:38)
[2020-04-27] MEDS: GABAPENTIN 300 MG CAP PO SCH ×3 (09:38→20:12)
[2020-04-27] MEDS: CARVEDILOL 12.5 MG TAB PO SCH ×2 (09:38→18:29)
[2020-04-27] MEDS: CEFTRIAXONE SOD 1 GM/NS 50 ML 50 ML IV SCH (10:04)
--- NOTE | 2020-04-27 13:46 | NUR ---
Transported patient for angiogram at this time.
[2020-04-27] MEDS ORDERED: HEPARIN SOD (PORCINE) 1000 UNIT/ML 30ML ONE (14:06)
[2020-04-27] MEDS ORDERED: LIDOCAINE HCL 2% LOCAL 20 ML VIAL ONE (14:07)
[2020-04-27] MEDS ORDERED: HEPARIN SOD/SOD CHLORIDE 2,000 ML ONE (14:07)
[2020-04-27] MEDS ORDERED: SODIUM CHLORIDE 0.9% 1000ML 1,000 ML ONE (14:07)
[2020-04-27] MEDS ORDERED: IOPAMIDOL 300MG/ML 100 ML INFUS..BTL IV ONE ×2 (14:07→15:28)
[2020-04-27] MEDS ORDERED: MIDAZOLAM HCL 2 MG/2 ML VIAL ONE ×3 (14:11→15:53)
[2020-04-27] MEDS ORDERED: FENTANYL CITRATE/PF 100MCG/2 ML INJ ONE ×2 (14:11→15:53)
[2020-04-27] MEDS ORDERED: CLOPIDOGREL BISULFATE 75 MG TAB ONE (16:12)
[2020-04-27] MEDS ORDERED: ASPIRIN 325 MG TAB ONE (16:13)
--- NOTE | 2020-04-27 19:31 | NUR ---
Received change of shift report from AM nurse. Walking rounds completed.
--- NOTE | 2020-04-27 19:32 | Operative Report ---
DATE OF PROCEDURE: 04/27/2020 SURGEON: Gaurav Cha MD INDICATION OF PROCEDURE: Critical limb ischemia, peripheral arterial disease. PREPROCEDURE ASSESSMENT: The risks, benefits and the alternatives to the treatment were explained to the patient prior to the procedure. The patient was deemed to be an appropriate candidate for moderate sedation. Informed consent was obtained and documented in the medical record. MEDICATIONS: Please see nursing notes for medications administered throughout the procedure. PROCEDURES PERFORMED: 1. Abdominal aortography. 2. Bilateral lower extremity angiography. 3. Catheter placement third order. 4. Arthrectomy and FURNITURE POLISHER of the left SFA. 5. Arthrectomy and FURNITURE POLISHER of the left popliteal artery. 6. Arthrectomy and FURNITURE POLISHER of the left anterior tibial INVESTMENT STRATEGIST. 7. FURNITURE POLISHER of the left dorsalis pedis artery. 8. Angio-Seal vascular closure device. 9. Moderate sedation time about 2 hours. PROCEDURE DETAILS: The patient was brought to the cardiac catheterization laboratory in a fasting state. Right groin was prepped and draped in a sterile fashion. A 5-Bangladeshi sheath was inserted in the right common femoral artery using modified Seldinger technique. Abdominal aortography was performed using Omni Flush catheter. [place] Advantage wire was advanced through the Omni Flush catheter into the contralateral common femoral artery Omni Flush is advanced into the left common femoral artery and angiography of the left lower extremity was performed, which demonstrated severe multilevel PAD including 100% INVESTMENT STRATEGIST of the distal SFA and the popliteal artery as well as the proximal anterior tibial artery, posterior tibial artery and peroneal artery with no runoff and very poor flow to the foot and toes. We decided to proceed with intervention. A 6-Bangladeshi 45 cm destination sheath was advanced over the [place] Advantage wire into the left SFA using NaviCross 0.35 catheter and a run-through wire into the distal SFA. INVESTMENT STRATEGIST of the left popliteal and anterior tibial artery was crossed using Fielder XT wire. We were unable to advance the NaviCross catheter and this was exchanged for Teleport catheter. Teleport catheter and Fielder XT were advanced through the anterior tibial artery INVESTMENT STRATEGIST into the distal anterior tibial artery which is also chronic totally occluded into the dorsalis pedis artery, which is also chronic totally occluded all the way into the artery of the left great toe. FURNITURE POLISHER of the entire dorsalis pedis artery as well as distal anterior tibial artery were performed using a 2.0 x 20 mm coronary balloon, arthrectomy of the distal SFA and entirety of the popliteal as well as the proximal anterior tibial artery were performed using Laguo directional atherectomy system. Balloon angioplasty was performed using 4.0 x 120 mm Chocolate balloon for the proximal anterior tibial artery and popliteal artery and a 6.0 x 40 mm balloon for the distal SFA and popliteal artery. This resulted in excellent angiographic result with brisk straight-line flow all the way to the foot and dorsalis pedis artery provided significant collateralization to the heel as well as the plantar aspect of the foot. The posterior tibial artery and the peroneal arteries remain chronic totally occluded and need to be opened up in a staged procedure. All wires and catheters were removed. Access site was closed using an Angio-Seal vascular closure device after runoff angiography of the right lower extremity. The patient tolerated the procedure well. There were no immediate complications. ACT near over 300 was maintained throughout the procedure using IV boluses of heparin, aspirin, and Plavix loading doses were given at the end of the procedure. SIGNIFICANT FINDINGS: Abdominal aortography diffuse severe disease of bilateral renal arteries. No significant aneurysmal dilation or PAD of the aorta. Bilateral iliac systems demonstrate [id number] plaquing of the common and external iliac arteries and severe diffuse disease of the internal iliac arteries bilaterally. Left GRINDER GEAR moderate plaquing, left deep femoral artery diffuse moderate to severe plaquing. No focal stenosis. Proximal SFA has several tandem lesions about 30 to 40% in severity. Mid SFA has a 99% lesion followed by chronic total occlusion in the distal SFA, popliteal artery, entirety is chronic totally occluded. There is slow collateralization from very small collaterals from distal SFA into the mid anterior tibial artery. The proximal anterior tibial artery, TP trunk, peroneal artery and posterior tibial artery are all chronic totally occluded. The arteries of the foot shows severe diffuse disease and dorsalis pedis arteries chronic totally occluded. There is no significant perfusion noted of the entire foot. Post intervention successful straight line runoff with DAMEON-[address] into the foot, into the dorsalis pedis artery with significant hibernating collaterals to the toes, to the heel as well as the plantar aspect of the foot. GRAFTS AND IMPLANTS: Angio-Seal x1. SPECIMEN REMOVED: None. ESTIMATED BLOOD LOSS: 50 mL. FINAL RECOMMENDATIONS: 1. Continue aspirin and Plavix. 2. Staged intervention to the left popliteal and posterior tibial arteries. 3. Okay to proceed with podiatric surgery. MD BRADLEY Love/MANUEL /[id number]
[2020-04-27] MEDS: SIMVASTATIN 20 MG TAB PO SCH (20:12)
[2020-04-28] VITALS (8 sets, daily range): BP systolic 105–144; BP diastolic 54–63
--- NOTE | 2020-04-28 03:03 | NUR ---
Patient resting quitly in bed. Right groin site continue to be soft, small amout of bleeding note with no noted hematoma. Continue monitor.
--- NOTE | 2020-04-28 06:32 | NUR ---
RECEIVED BEDSIDE SHIFT REPORT FROM OFF GOING NURSE. PATIENT IS IN STABLE CONDITION, NO ACUTE DISTRESS NOTED. CALL LIGHT WITHIN REACH. BED IN THE LOWEST POSITION.
[2020-04-28] MEDS: INSULIN REGULAR, HUMAN 100 UNIT/1 ML 3ML VIAL SQ SCH ×4 (07:30→20:31)
[2020-04-28] MEDS: HYDRALAZINE HCL 25 MG TAB PO SCH ×3 (07:53→20:30)
[2020-04-28] MEDS: CARVEDILOL 12.5 MG TAB PO SCH ×2 (07:53→17:00)
--- NOTE | 2020-04-28 08:05 | NUR ---
PER DR. RICKETTS, HOLD ASPIRIN AND PLAVIX. WILL SCHEDULE PATIENT FOR SURGERY TOMORROW.
[2020-04-28] MEDS: INSULIN GLARGINE 100 UNITS/ML VIAL SQ SCH ×2 (08:59→20:41)
[2020-04-28] MEDS: AMLODIPINE BESYLATE 10 MG TAB PO SCH (08:59)
[2020-04-28] MEDS ORDERED: ASPIRIN 81 MG CHEW TAB PO SCH (09:00)
[2020-04-28] MEDS ORDERED: CLOPIDOGREL BISULFATE 75 MG TAB PO SCH (09:00)
[2020-04-28] MEDS: GABAPENTIN 300 MG CAP PO SCH ×3 (09:06→20:30)
[2020-04-28] MEDS: CEFTRIAXONE SOD 1 GM/NS 50 ML 50 ML IV SCH (09:06)
[2020-04-28] MEDS: FAMOTIDINE 20 MG TAB PO SCH (09:06)
--- NOTE | 2020-04-28 09:08 | Consultation ---
DATE OF CONSULTATION: 04/28/2020 Progress Report SUBJECTIVE: The patient at bedside, in no apparent distress, is denying any history of fever, chills, nausea, vomiting somewhat confused. OBJECTIVE: VITAL SIGNS: Afebrile, pulse rate 64, respirations 20, blood pressure 113/57, O2 saturation 99%. LABORATORY DATA: Noted. White blood cell count of 7.14, hemoglobin 10.6, platelet count of 195 with a blood glucose of 57. Gangrenous changes noted at the left great toe. Has a grade 4 ulcer down to bone. Abscess formation noted with some foul smell present. Has erythema surrounding the 1st metatarsal head with pain upon palpation. Pedal pulses are greatly diminished but skin temperature is warm to the touch. ASSESSMENT: Peripheral arterial disease, abscess, osteomyelitis with a grade 4 ulcer. PLAN: The patient will be taken for surgical intervention tomorrow. Surgery will consist of an I and D of abscess, amputation left great toe, partial resection 1st met with rotational flap closure. No guarantees or warranties can be given secondary to his poor circulatory status. If not responsive, may need a more proximal amputation. The patient to be kept n.p.o. after midnight. ARCADIO Moon/MANUEL /[id number]
--- NOTE | 2020-04-28 12:45 | NUR ---
HD NURSE AT BEDSIDE. HD STARTED AT THIS TIME.
--- NOTE | 2020-04-28 16:45 | NUR ---
HD FINISHED AT THIS TIME. 2L OF FLUID REMOVED.
--- NOTE | 2020-04-28 19:16 | NUR ---
BEDSIDE SHIFT REPORT GIVEN TO ONCOMING NURSE. PATIENT IS RESTING IN BED, NO ACUTE DISTRESS NOTED AT THIS TIME. CALL LIGHT WITHIN REACH. BED IN THE LOWEST POSITION. BED ALARM ON.
[2020-04-28] MEDS ORDERED: LEVOFLOXACIN 500MG/D5W 100ML 100 ML IV SCH (20:00)
--- NOTE | 2020-04-28 20:17 | Progress Note ---
DATE: 04/28/2020 Cardiology Progress Note SUBJECTIVE: No major events. OBJECTIVE: VITAL SIGNS: Temperature; afebrile, pulse 82, respiratory rate 14, blood pressure 156/90, saturating 98% on nasal cannula. GENERAL: Well developed, well nourished, no acute distress. CARDIOVASCULAR: Regular rate and rhythm. No murmurs, rubs, or gallops. LUNGS: Decreased breath sounds at the bases. ABDOMEN: Soft, nontender, nondistended. NEURO AND PSYCH: Alert and oriented. INPATIENT MEDICATIONS: Reviewed. LABORATORY DATA: Reviewed. TELEMETRY DATA: Reviewed. ASSESSMENT: 1. Critical limb ischemia, nonhealing left toe ulcer. 2. Severe peripheral arterial disease. 3. End-stage renal disease. PLAN: Peripheral angiography and intervention to the left lower extremity yesterday. We were successfully able to open up his ASTROPHYSICS PROFESSOR of his popliteal and anterior tibial artery and restoring straight-line flow to his toes. The patient is planned to have left great toe amputation tomorrow, has residual ASTROPHYSICS PROFESSOR of his left posterior tibial and peroneal arteries, which will need staged intervention. The patient is to follow up in the office one week post discharge for outpatient planning of the staged interventions. Continue current cardiovascular medications otherwise. Once his amputation is completed, the patient is okay to be discharged from a cardiovascular standpoint with outpatient followup. MD BRADLEY Love/MANUEL /[id number]
--- NOTE | 2020-04-28 20:18 | NUR ---
Received change of shift report from AM nurse. Walking rounds completed.
[2020-04-28] MEDS: SIMVASTATIN 20 MG TAB PO SCH (20:30)
[2020-04-29] VITALS: BP 123/62
[2020-04-29] MEDS: ACETAMINOPHEN 325 MG TAB PO PRN ×2 (00:11→16:06)
--- NOTE | 2020-04-29 03:28 | NUR ---
Patient received tylenol for low grade temp.99.7. Patient with no c/o at this time. Continue monitor.
[2020-04-29 04:00] VITALS: BP 128/61
--- NOTE | 2020-04-29 07:10 | NUR ---
PATIENT OFF THE UNIT TO OR PRIOR TO BEDSIDE SHIFT REPORT. RECEIVED REPORT FROM NIGHT NURSE IN PATIENT'S ROOM.
[2020-04-29] MEDS ORDERED: BETAMETHASONE DISODIUM PHOS 6 MG/ML VIAL ONE (07:28)
[2020-04-29] MEDS ORDERED: LIDOCAINE HCL 1% LOCAL INJ 20 ML VIAL ONE (07:28)
[2020-04-29] MEDS ORDERED: VANCOMYCIN HCL 1 GM VIAL ONE (07:28)
[2020-04-29] MEDS ORDERED: MUPIROCIN 2% OINT 22 GM TUBE ONE (07:28)
[2020-04-29] MEDS ORDERED: BUPIVACAINE HCL 0.5% INJ 30 ML VIAL INJ ONE (07:29)
[2020-04-29] MEDS: INSULIN REGULAR, HUMAN 100 UNIT/1 ML 3ML VIAL SQ SCH ×3 (07:30→16:24)
--- NOTE | 2020-04-29 08:35 | NUR ---
ORDER RECEIVED FOR HOME HEALTH. CALL TO PT'S , MERRY MAI. NO ANSWER. THEN THE PT'S CELL. NO ANSWER. PT'S CALLED BACK ON PT CELL PHONE. STATES SHE LEFT HER PHONE AT HOME, BUT PREFERS TO BE CONTACTED @ [phone] IN THE FUTURE. DISCUSSED HOME HEALTH CHOICE: [facility], [facility], [facility]. STATES HER HAD HH OVER A YEAR AGO. REQUESTED SERVICES BE ARRANGED W SIGNATURE @ OFF: [phone] / FAX: [phone]. IMM LETTER EXPLAINED TO PT'S . SHE VERBALIZED UNDERSTANDING. IMM LETTER SIGNED. COPY TO PT AND COPY TO CHART.
--- NOTE | 2020-04-29 08:50 | NUR ---
Received telephone report from PACU nurse.
--- NOTE | 2020-04-29 08:50 | Diagnostic Imaging Report ---
EXAMINATION: FOOT LEFT AP LAT INDICATION: Postoperative COMPARISON: Left foot radiographs of 04/24/2020 FINDINGS: AP and lateral postoperative radiograph of the left foot demonstrate interval left great toe amputation at the level of the first metatarsal head. Unchanged postoperative findings of prior second through fifth toe amputations. No unexpected fracture. Soft tissue swelling and small amount of subcutaneous emphysema, expected in the postoperative setting. Atherosclerotic arterial calcifications. IMPRESSION: Postoperative findings of interval left great toe amputation. Signed by: Luis Carlos Titus MD on 04/29/2020 8:47 AM
[2020-04-29 09:05] VITALS: BP 147/76
--- NOTE | 2020-04-29 09:07 | NUR ---
Patient returned to floor and in room, resting in bed. Patient stable, no acute distress noted, denies bed. Patient's arrived at bedside. Dressing C/D/I to left foot. Call light in reach, bed in lowest position.
[2020-04-29 09:12] VITALS: BP 147/76
[2020-04-29] MEDS: HYDRALAZINE HCL 25 MG TAB PO SCH ×2 (09:27→14:54)
[2020-04-29] MEDS: AMLODIPINE BESYLATE 10 MG TAB PO SCH (09:28)
[2020-04-29] MEDS: FAMOTIDINE 20 MG TAB PO SCH (09:28)
[2020-04-29] MEDS: GABAPENTIN 300 MG CAP PO SCH ×2 (09:28→15:00)
[2020-04-29] MEDS: CARVEDILOL 12.5 MG TAB PO SCH (09:28)
[2020-04-29] MEDS: INSULIN GLARGINE 100 UNITS/ML VIAL SQ SCH (09:32)
--- NOTE | 2020-04-29 09:35 | Operative Report ---
DATE OF PROCEDURE: 04/29/2020 SURGEON: Josue Lugo DPM PREOPERATIVE DIAGNOSES: 1. Abscess, left foot deep. 2. Gangrene, left great toe. 3. Osteomyelitis, left great toe. 4. Capsulitis, 1st metatarsophalangeal joint, left foot. POSTOPERATIVE DIAGNOSIS: Confirmed. OPERATIVE PROCEDURES: 1. Deep incision and drainage of the left foot abscess, left foot. 2. Amputation of left great toe. 3. Partial resection of 1st metatarsal, left foot. 4. Rotational flap closure. ANESTHESIA: General. HEMOSTASIS: None. PROCEDURE IN DETAIL: The patient was taken into the operating room, placed on the operating room table in supine position. Following induction of general anesthesia by the anesthesiologist, the left foot was then prepped and draped in the usual aseptic manner and following procedures were then performed. Deep I and D, left foot. Attention was directed to the 1st MPJ where a curvilinear incision was performed. Abscess was encountered and cultured for aerobic and anaerobic growth, foul smell noted at this point. Procedure #2: Amputation of the left great toe was performed at the metatarsophalangeal joint in a racquet shaped type of incision. The toe was disarticulated and sent for pathological analysis. Further necrotic tissue was encountered and removed via sharp and blunt dissection with the infection crossing the metatarsophalangeal joint area. Procedure #3: Partial resection of 1st metatarsal, left foot. Attention was directed to the dorsal aspect of the 1st metatarsal where the incision was made down to the mid shaft of the 1st metatarsal. Incision was deepened down to the bone level and utilizing the oscillating saw, the head of the 1st metatarsal was then excised from the operation site in toto, all rough and bony edges were rasped smooth. Further necrosis was noted and deep I and D and removal of deep infected tissue was removed via sharp and blunt dissection until good viable bleeding tissue was achieved. Procedure #4: Rotational flap closure, a flap was then created by extending the incision both dorsal laterally and plantar medially to create a plantar flap to allow for proper closure with minimal skin tension. The flap was then reapproximated and put together utilizing 3-0 Vicryl for subcutaneous tissue and 4-0 nylon for skin after properly and copiously flushing the area with antibiotic solution. Approximately 10 mL of 0.5% plain Marcaine was then used plus 5 mL of 1% Xylocaine plain were then used to achieve local anesthesia of above-mentioned surgical area. Sterile dressing was applied. The patient was then transferred from the OR to recovery room with vital signs stable and neurovascular status intact. No intraoperative complications were encountered. Blood loss from the surgery was minimal, less than 20 mL, the patient remained in the hospital for a couple days on IV antibiotics. He is to follow up in the office upon discharge and no guarantees were given, may need a more proximal amputation if this does not heal. ARCADIO Moon/MANUEL /[id number]
[2020-04-29 11:37] VITALS: BP 123/60
[2020-04-29 11:53] LABS: BASOPHILS % 0.4 % (0.0-1.0); EOSINOPHILS % 0.3 % (0.0-6.0); HEMATOCRIT 29.4 % (38.2-49.6); HEMOGLOBIN 9.8 g/dL (14.0-18.0); LYMPHOCYTES # (AUTO) 1.2 (1.0-3.2); MEAN CORPUSCULAR HEMOGLOBIN 30.9 pg (28-32); MEAN CORPUSCULAR HGB CONC 33.3 g/dL (31-35); MEAN CORPUSCULAR VOLUME 92.7 fL (81-99); MONOCYTES # (AUTO) 0.5 (0.2-0.8); MONOCYTES % 6.8 % (4.4-11.3); NEUTROPHILS # (AUTO) 5.2 (2.1-6.9); NEUTROPHILS % 74.9 % (38.7-80.0); PLATELET COUNT 191 x10e3/uL (140-360); RED BLOOD COUNT 3.17 x10e6/uL (4.3-5.7); RED CELL DISTRIBUTION WIDTH 13.2 % (11.7-14.4)
[2020-04-29] MEDS ORDERED: MIDAZOLAM HCL 2 MG/2 ML VIAL ONE (12:04)
[2020-04-29 12:16] LABS: ANION GAP 14.6 mmol/L (8-16); CALCIUM 7.4 mg/dL (8.4-10.2); CREATININE, SERUM 5.45 mg/dL (0.72-1.25); POTASSIUM 3.6 mmol/L (3.5-5.1)
--- NOTE | 2020-04-29 12:30 | NUR ---
This nurse contacted Dr. Lugo to clarify resuming held meds. This nurse received order to continue for tomorrow. Order input and filed.
[2020-04-29] MEDS ORDERED: TYLENOL # 31 EA PO (13:41)
[2020-04-29] MEDS ORDERED: LEVOFLOXACIN250 MG PO ×2 (13:41→16:24)
[2020-04-29] MEDS ORDERED: ACETAMINOPHEN325 M1 PO (13:41)
[2020-04-29] MEDS ORDERED: PLAVIX75 MG PO (13:41)
[2020-04-29] MEDS ORDERED: SODIUM CHLORIDE 0.9% 1000ML 2,000 ML IV PRN (14:45)
--- NOTE | 2020-04-29 16:05 | NUR ---
HOME HEALTH DISCHARGE NOTE PATIENT ADDRESS WHERE SERVICE WILL BE RECEIVED: [facility] [place] [address] PATIENT CONTACT NUMBER: [phone] NAME OF HOME HEALTH COMPANY: [employer] TELEPHONE/FAX NUMBER OF [employer]: OFF: [phone] / FAX: [phone] SERVICES TO RECEIVE: SN EVAL AND TREAT; WOUND CARE ANTICIPATED DATE SERVICES WILL BEGIN: 05/01/2020 Please call the company above if you have not received a call to schedule a home visit within 24 hours of discharge.
[2020-04-29 16:15] VITALS: BP 108/57
[2020-04-29] MEDS ORDERED: ONDANSETRON HCL INJ 2MG/ML 2ML 2 MG/ML VIAL ONE (16:17)
[2020-04-29] MEDS ORDERED: LIDOCAINE HCL 2% JELLY 5 ML TUBE ONE (16:17)
[2020-04-29] MEDS ORDERED: LIDOCAINE HCL 2% LOCAL INJ 5 ML SDV VIAL INJ ONE (16:17)
[2020-04-29] MEDS ORDERED: PROPOFOL IV EMULSION 10 MG/ML 20 ML VIAL ONE (16:17)
[2020-04-29] MEDS ORDERED: DESFLURANE 240 ML BTL INH ONE (16:17)
--- NOTE | 2020-04-29 18:00 | NUR ---
This nurse spoke with Dr. Lugo to verify non weight bearing status for left foot. Dr. Lugo confirmed and gave instructions to not remove dressing for one week and to follow up at the [place] office next week. Dr. Lugo cleared patient for discharge. All discharge instructions will be included.
--- NOTE | 2020-04-29 19:20 | NUR ---
Patient discharged home with home health. Patient off the unit at 1843. Patient in stable condition with no signs and symptoms of respiratory distress, RN's assisted patient into vehicle. Prior to discharge, patient and at bedside received discharge instructions and teachings, non weight bearing to left foot, no dressing change for one week, only reinforced dressing if needed and if saturated through, to call nurse and MD. Dressing CDI on discharge. Medications updated and prescriptions explained. Follow up instructions explained. IV removed with tip intact.
--- NOTE | 2020-04-30 01:44 | Discharge Summary ---
CONSULTING PHYSICIANS: 1. Dr. Dago Gregory with Nephrology. 2. Dr. Josue Lugo with Podiatry. 3. Dr. Ector Hicks with Cardiology. CHIEF COMPLAINT: Left great toe necrosis. PRIMARY CARE PHYSICIAN: [facility]. HISTORY OF PRESENT ILLNESS: The patient is a 59-year-old male, who admitted with complaints of left great toe being black for couple of weeks. The patient stated that he could not see it, but his had told him his toe did not look good. He denied fever, drainage, or pain on admission. PAST MEDICAL HISTORY: Hypertension, type 2 diabetes mellitus, end-stage renal disease, and peripheral vascular disease. PAST SURGICAL HISTORY: Left forearm AV fistula, right [id number] amputation, left foot amputation x4 from the 2nd to 5th toes. FAMILY HISTORY: Diabetes mellitus in uncles x2. SOCIAL HISTORY: Noncontributory. ALLERGIES: NO KNOWN ALLERGIES. ADMITTING DIAGNOSES: 1. Left great toe wound with necrosis, possible peripheral artery disease/osteomyelitis. 2. End-stage renal disease. 3. Type 2 diabetes mellitus with peripheral artery disease/end-stage renal disease. 4. Hypertension with end-stage renal disease, controlled. 5. Peripheral artery disease. DISCHARGE DIAGNOSES: 1. Left great toe wound with necrosis, peripheral artery disease, abscess, osteomyelitis with grade 4 ulcer, now status post great toe amputation on 04/29/[address] Lugo. 2. Peripheral arterial disease, status post angiography 04/[address] Gaurav Cha. 3. End-stage renal disease. 4. Controlled type 2 diabetes mellitus with peripheral artery disease/ulcers/end-stage renal disease. 5. Controlled hypertension with peripheral artery disease and end-stage renal disease. Left foot x-ray on 04/24 showed status post transmetatarsal amputation of the 2nd through 5th metatarsals. No osseous lucencies or erosive changes to suggest osteomyelitis. The amputation stump unremarkable by plain radiograph. There is atherosclerotic calcification of the lower extremity vessels. MRI of the left foot without contrast on 04/25 showed skin ulcer in the dorsal aspect of the great toe with underlying osseous changes compatible with early osteomyelitis of the great toe distal phalanx. On 04/25, bilateral lower extremity arterial Doppler ultrasound showed possible evidence of significant arterial stenosis in the SFA. There was evidence of arterial disease without significant arterial stenosis in the popliteal and collateral circulation was noted in the popliteal artery. A 12-lead EKG on 04/29 showed sinus rhythm with first-degree AV block, heart rate 76. Postoperative x-ray of the left foot on 04/29 showed postoperative findings of interval left great toe amputation. On 04/27, the patient underwent abdominal aortography, diffuse severe disease of bilateral renal arteries. No significant aneurysmal dilation or PAP of the aorta. Bilateral iliac systems demonstrated mild to moderate plaquing of the common and external iliac arteries and severe diffuse disease of the internal iliac arteries bilaterally. Left common femoral artery moderate plaquing. Left deep femoral artery diffuse moderate to severe plaquing. No focal stenosis. Proximal SFA had several tandem lesions about 30% to 40% in severity. Mid SFA had 99% lesion, followed by chronic total occlusion in the distal SFA, popliteal artery entirety, chronic totally occluded the proximal anterior tibial artery, TP trunk, peroneal artery, and posterior tibial artery. Chronic totally occluded arteries of the foot showed severe diffuse disease and dorsalis pedis arteries chronic totally occluded. No significant perfusion noted of the entire foot. Recommendations from this included continue aspirin and Plavix. Staged intervention to the left popliteal and posterior tibial arteries. Okay to proceed with podiatric surgery. The patient underwent hemodialysis yesterday successfully and due to the holiday, which is tomorrow 04/30, the patient underwent hemodialysis again today just prior to discharge. Today vital signs included temperature 97.3, pulse 68, blood pressure 147/76, respirations 18, oxygen saturation 98%. Labs from today, 04/29 included WBC 6.88, hemoglobin 9.8, hematocrit 29.4, platelets 191, neutrophils 74.9%. Sodium 136, potassium 3.6, chloride 98, CO2 of 27, BUN 18, creatinine 5.45, estimated GFR 11, glucose 161, calcium 7.4. Fingerstick blood glucose levels 85, 70, 178, 118. Serology, coronavirus PCR on 04/24 was not detected. Hepatitis B surface antigen negative. Hepatitis B surface antibody quantitative 3.9. Hepatitis B core IgM antibody negative. Hemoglobin A1c was 10.6% on 04/25. C-reactive protein 57 on 04/25. Wound culture and sensitivity collected 04/24 from the left foot grew multidrug resistant Proteus mirabilis as well as multidrug resistant MRSA. The patient will be discharged home on Levaquin 250 mg p.o. daily x7 days. Other prescriptions include Tylenol p.r.n. for fever, Plavix 75 mg daily, Tylenol No. 3 one tablet every 4 hours p.r.n. for severe pain, quantity 20. The patient is to continue renal diabetic diet at home. Activity level as tolerated, but nonweightbearing on the left foot. The patient has no complaints of pain. His last bowel movement was 04/24/2020, which according to his is normal for him. The patient to follow up with [facility] as that is his PCP. Follow up with Dr. Lugo and Dr. Hicks as directed. Call their offices to schedule a followup appointment. Dictated by Claudio Ellison NP MD ALEXA DowningP/MANUEL /[id number]
== END 2020-04-29 18:43 | disposition home health service (06) | DRG 270 ==
LOC: ER 20:18 → ERHOLD 20:19 → MED/SURG3 21:42 → OBSVTOIN 04-25 09:07
PROVIDERS: ADMIT Internal Medicine; ATTEND Internal Medicine
PROC: 04CL3ZZ Extirpation of Matter from Left Femoral Artery, Percutaneous Approach (ICD-10-PCS; principal; 2020-04-27)
PROC: 047L3Z1 Dilation of Left Femoral Artery using Drug-Coated Balloon, Percutaneous Approach (ICD-10-PCS; 2020-04-27)
PROC: 047N3Z1 Dilation of Left Popliteal Artery using Drug-Coated Balloon, Percutaneous Approach (ICD-10-PCS; 2020-04-27)
PROC: 047Q3Z1 Dilation of Left Anterior Tibial Artery using Drug-Coated Balloon, Percutaneous Approach (ICD-10-PCS; 2020-04-27)
PROC: 047 Lower Arteries, Dilation (ICD-10-PCS; 2020-04-27)
PROC: 04CN3ZZ Extirpation of Matter from Left Popliteal Artery, Percutaneous Approach (ICD-10-PCS; 2020-04-27)
PROC: 04CQ3ZZ Extirpation of Matter from Left Anterior Tibial Artery, Percutaneous Approach (ICD-10-PCS; 2020-04-27)
PROC: B41D1ZZ Fluoroscopy of Aorta and Bilateral Lower Extremity Arteries using Low Osmolar Contrast (ICD-10-PCS; 2020-04-27)
PROC: 0Y6Q0Z0 Detachment at Left 1st Toe, Complete, Open Approach (ICD-10-PCS; 2020-04-29)
PROC: 0QBP0ZZ Excision of Left Metatarsal, Open Approach (ICD-10-PCS; 2020-04-29)
DX: E11.52 Type 2 diabetes mellitus with diabetic peripheral angiopathy with gangrene (principal); N18.6 End stage renal disease; I12.0 Hypertensive chronic kidney disease with stage 5 chronic kidney disease or end stage renal disease; M86.172 Other acute osteomyelitis, left ankle and foot; N25.81 Secondary hyperparathyroidism of renal origin; L03.116 Cellulitis of left lower limb; L02.612 Cutaneous abscess of left foot; I70.92 Chronic total occlusion of artery of the extremities; I70.262 Atherosclerosis of native arteries of extremities with gangrene, left leg; Z16.24 Resistance to multiple antibiotics; E11.22 Type 2 diabetes mellitus with diabetic chronic kidney disease; Z99.2 Dependence on renal dialysis; Z83.3 Family history of diabetes mellitus; Z89.511 Acquired absence of right leg below knee; Z89.422 Acquired absence of other left toe(s); E11.69 Type 2 diabetes mellitus with other specified complication; D63.1 Anemia in chronic kidney disease; H54.8 Legal blindness, as defined in USA; L97.524 Non-pressure chronic ulcer of other part of left foot with necrosis of bone; B95.62 Methicillin resistant Staphylococcus aureus infection as the cause of diseases classified elsewhere; B96.4 Proteus (mirabilis) (morganii) as the cause of diseases classified elsewhere; Z79.4 Long term (current) use of insulin
CPT/HCPCS: 36247; 36415; 37224; 37225; 37228; 37233; 75625; 75710; 80048; 80053; 82948; 83036; 85025; 85651; 86140; 86705; 86706; 87071; 87075; 87186; 87205; 87340; 88304; 88311; 93005; 93926; 96372; 99152; 99153; 99284; C1714; C1725; C1760; C1769; C1887; G0378; J0696; J0720; J1644; J1815; J1817; J1956; J2001; J2250; J2270; J2405; J2543; J3010; J3370; J7030; J7050; Q9967; U0002